=== PATIENT | female | born 1965 | race Caucasian/White ===

== ENCOUNTER → 2020-07-15 15:39 | Outpatient (CLI) | payer OTHER, SELFPAY ==
--- NOTE | ~2020-07-15 | XR_ITS ---
XR abdomen/kub 1V 07/15/2020 16:02 Indication: Renal stone Procedure: KUB Comparison: No prior studies for comparison. Findings: Bowel gas pattern is nonobstructive. There are cholecystectomy clips. There are pelvic phle boliths. No acute osseous abnormality. Impression: 1: Nonobstructive bowel gas pattern. Reviewed, dictated and finalized at location B. Impression: 1: Nonobstructive bowel gas pattern.
== END ==
PROVIDERS: PCP Family Medicine Sports Medicine; Visit Provider Internal Medicine Nephrology
DX: N20.0 Calculus of kidney (principal)
CPT/HCPCS: 74018

== ENCOUNTER 2023-05-24 10:51 | Outpatient (CLI) | payer BC, SELFPAY ==
--- NOTE | ~2023-05-24 | US_ITS ---
Renal-Bladder ultrasound Clinical History: Chronic kidney disease Technique: Real-time sonographic imaging of the kidneys and urinary bladder was performed. Findings: The right kidney measures 7.8 cm in length and the left kidney measures 9.1 cm. There is no hydronephrosis or renal calculus identified. Renal cortical echogenicity mildly increased. No renal mass lesion is identified. The urinary bladder is moderately distended at the time of this exam. No intraluminal echoes are iden tified. No abnormal wall thickening is seen. Impression: Unremarkable ultrasound of the kidneys and urinary bladder. Reviewed, dictated and finalized at location . DCAST DIRECTOR OPERATIONS Impression: Unremarkable ultrasound of the kidneys and urinary bladder.
== END 2023-05-24 10:52 ==
LOC: MICIMG 10:52
PROVIDERS: PCP Nurse Practitioner; Visit Provider Nurse Practitioner
DX: N18.5 Chronic kidney disease, stage 5 (principal)
CPT/HCPCS: 76775

== ENCOUNTER 2024-07-04 08:13 | Outpatient (CLI) | payer OTHER, SELFPAY ==
--- NOTE | ~2024-07-04 | US_ITS ---
Abdominal Sonogram: Real-time sonographic imaging of the abdomen was performed. Clinical History: End-stage renal disease Findings: The liver appears normal with no evidence of mass lesion or bile duct dilatation. Main por chau vein demonstrates normal direction of flow. The spleen is normal in size without evidence of foca l lesion. The gallbladder is absent, compatible with prior cholecystectomy. The common bile duct frances sures 5 mm. The visualized pancreas, aorta, and IVC are unremarkable. The right kidney measures 7.2 cm in length and the left kidney measures 8.0 cm. There is no hydronephrosis or renal calculus. Bot h kidneys are echogenic. Impression: Echogenic kidneys are compatible with chronic medical renal disease. Reviewed, dictated and finalized at location M. Impression: Echogenic kidneys are compatible with chronic medical renal disease.
== END 2024-07-04 08:14 | disposition home or self-care (01) ==
PROVIDERS: PCP Family Medicine; Visit Provider Internal Medicine Nephrology
DX: N18.6 End stage renal disease (principal); R14.0 Abdominal distension (gaseous)
CPT/HCPCS: 76700

== ENCOUNTER 2024-07-25 06:50 | Outpatient (CLI) | payer OTHER, SELFPAY ==
--- OUTSIDE RECORDS SUMMARY | 2024-07-25 06:53 | XMS_ITS | Clinical Summary ---
Author Organization [facility] Address [address] [place] [address] Phone Care Team Providers Care Pipeline Dispatcher Name Role Phone Yaw Rodriguez MD Primary Care Provider [phone] Allergies Active Allergy Reactions Criticality Noted Date Comments Codeine Palpitations Low 08/11/2019 Medications montelukast (SINGULAIR) 10 MG tablet Take 10 mg by mouth 1 (one) time each day 05/25/2020 Active potassium chloride (KLOR-CON M20) 20 MEQ CR tablet Take 20 mEq by mouth 2 (two) times a day 06/01/2020 Active atorvastatin (LIPITOR) 10 MG tablet Take 10 mg by mouth 1 (one) time each day 06/09/2020 Active albuterol HFA (PROVENTIL HFA) 108 (90 Base) MCG/ACT inhaler INHALE 1 PUFF BY MOUTH 4 TIMES A DAY NEEDED 03/27/2020 Active Active Problems Problem Noted Date Diagnosed Date Renal stone 08/11/2019 Overview (06/25/2020): Added automatically from request for surgery [id number] Added automatically from request for surgery [id number] Family History Medical History Relation Comments Kidney disease Neg Hx Social History Tobacco Use Types Packs/Day Years Used Date Smoking Tobacco: Former Smokeless Tobacco: Never Alcohol Use Standard Drinks/Week Comments Never 0 (1 standard drink = 0.6 oz pur e alcohol) AUDIT-C Answer Date Recorded Q1: How often do you have a drink containing alc ohol? Never 06/25/2020 Q2: How many drinks containi ng alcohol do you have on a typical day when you are drinking? Not asked 06/25/2020 Q3: How often do you have six or more drinks on one occasion? Never 06/25/2020 Comments Unknown Sex and Gender Information Value Date Recorded Sex Assigned at Not on file Legal Sex Female 10:54 AM MST Gender Identity Not on file Sexual Orientation Not on file Last Filed Vital Signs Vital Sign Reading Time Taken Comments Blood Pressure 94/60 06/25/2020 9:22 AM CDT Pulse 72 06/25/2020 9:22 AM CDT Temperature 36.6 C (97.8 F) 06/25/2020 9:22 AM CDT Respiratory Rate - - Oxygen Saturation - - Inhaled Oxygen Concentration - - Weight 52.6 kg (116 lb) 06/25/2020 9:22 AM CDT Height 152.4 cm (5') 06/25/2020 9:22 AM CDT Body Mass Index 22.65 06/25/2020 9:22 AM CDT Plan of Treatment Health Maintenance Due Date Last Done Comments Influenza Vaccine (Season Ended) 2024 Insurance [employer] Care Teams Pipeline Dispatcher Relationship Specialty Start Date End Date Yaw Rodriguez MD PCP - General Family Medicine 04/22/20
--- OUTSIDE RECORDS SUMMARY | 2024-07-25 06:53 | XMS_ITS | Encounter Summary ---
Author Organization [facility] Address [address] [place] [address] Care Team Providers Care Waste Reduction Coordinator Name Role Phone León Varela MD Primary Care Provider [phone] Encounter Details Date Type Department Care Team (Late st Contact Info) Description 08/22/2022 Lab Requisition [facility] [address] [facility] [place] [address] Disha Gutierrez MD [address] [facility] [address] [place] [address] Social History Tobacco Use Types Packs/Day Years Used Date Smoking Tobacco: Never Assessed Comments Unknown Sex and Gender Information Value Date Recorded Sex Assigned at Not on file 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 Gender Identity Not on file Sexual Orientation Not on file documented as of this encounter Plan of Treatment Not on file documented as of this encounter Procedures Procedure Name Priority Date/Time Associated Diagnosis Comments DERMATOPATHOLOGY Routine 08/22/2022 3:38 PM CDT documented in this encounter Results * DERMATOPATHOLOGY (08/22/2022 3:38 PM CDT) Case Report Dermatopathology Report Case: [id number] Authorizing Provider: Disha Gutierrez MD Collected: 08/22/2022 03:38 PM Ordering Location: [facility] Received: 08/23/2022 12:25 PM Pathologist: Key Johnson MD Specimens: A) - Skin, left arm B) - Skin, right arm C) - Skin, right upper lip D) - Skin, left hand E) - Skin, left 3rd finger 3 3:13 PM [facility] Final Diagnosis Specimen A. 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 SKIN, right upper lip: BASAL CELL CARCINOMA, NODULAR TYPE (C44.319) Specimen D. SKIN, left hand: BENIGN VERRUCOUS KERATOSIS (L82.1) OVERLYING CUTANEOUS HORN (L85.8) Specimen E. 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 The specimen consists of a shave biopsy measuring 8x8x3 mm. Jar 0. Specimen B: Received is one formalin filled container labeled with the patient's name and designated right arm. The specimen consists of a shave biopsy measuring 9x8x3 mm. Jar 0. Specimen C: Received is one formalin filled container labeled with the patient's name and designated right upper lip. The specimen consists of a shave biopsy measuring 3x3x1 mm. Jar 0. Specimen D: Received is one formalin filled container labeled with the patient's name and designated left hand. The specimen consists of a shave biopsy measuring 6x6x2 mm. Jar 0. Specimen E: Received is one formalin filled container labeled with the patient's name and designated left 3rd finger. The specimen consists of a shave biopsy measuring 6x6x2 mm. Jar 0. 3 3:13 PM [facility] Microscopic Description Specimen A. SKIN, left arm: The epidermis shows parakeratosis, full thickness disorderly maturation of keratinocytes, mitoses at different levels, and dyskeratotic cells. Specimen B. SKIN, right arm: The epidermis shows parakeratosis, full thickness disorderly maturation of keratinocytes, mitoses at different levels, and dyskeratotic cells. Specimen C. SKIN, right upper lip: Within the dermis there are aggregates of basaloid cells with a high nuclear to cytoplasmic ratio and peripheral palisading. Specimen D. SKIN, left hand: Sections show hyperkeratosis, papillomatosis, hypergranulosis, and acanthosis. These histological findings can be seen in a verruca vulgaris or a seborrheic keratosis. There is a column of marked compact hyperkeratosis. Specimen E. SKIN, left 3rd finger: The epidermis shows parakeratosis, full thickness disorderly maturation of keratinocytes, mitoses at different levels, and dyskeratotic cells. There is a column of marked compact hyperkeratosis. 3 3:13 PM CDT DERMATOPATHOLOGY LABORATORY Disclaimer An external and internal positive and negative controls are appropriate for the histochemical, immunohistochemical and immunofluorescence stain(s) in this case (if any), except where stated explicitly. The performance characteristics of the stain(s) cited in this report were developed and its performance characteristic determined by the Dermatopathology Laboratory at [facility], directed by Dr. Cole Gonzáles. These tests need not be, and therefore are not, approved by the [place] Food and Drug Administration. The tests are used for clinical purposes. Billing Codes Specimen Charges Stain Charges 91253 52471 [id number] 1 1 1 1 1 3 3:13 PM CDT DERMATOPATHOLOGY LABORATORY Embedded Images 3 3:13 PM CDT DERMATOPATHOLOGY LABORATORY Pathology/Cytology TISSUE SPECIMEN FROM SKIN / Unknown 08/22/2022 3:38 PM CDT 08/23/2022 12:25 PM CDT Miscellaneous samples (specimen) TISSUE SPECIMEN FROM SKIN / Unknown 08/22/2022 3:38 PM CDT 08/23/2022 12:25 PM CDT Miscellaneous samples (specimen) TISSUE SPECIMEN FROM SKIN / Unknown 08/22/2022 3:38 PM CDT 08/23/2022 12:25 PM CDT Miscellaneous samples (specimen) TISSUE SPECIMEN FROM SKIN / Unknown 08/22/2022 3:38 PM CDT 08/23/2022 12:25 PM CDT Miscellaneous samples (specimen) TISSUE SPECIMEN FROM SKIN / Unknown 08/22/2022 3:38 PM CDT 08/23/2022 12:25 PM CDT Disha Gutierrez MD LAB - PATHOLOGY/CYTOLOGY ORD ERABLES Final Result DERMATOPATHOLOGY LABORATORY [facility] - Department of Dermatology [facility] [address] [place] [address], [address] [phone] documented in this encounter Visit Diagnoses Not on filedocumented in this encounter Care Teams Waste Reduction Coordinator Relationship Specialty Start Date End Date León Varela MD [address] [place] [address] PCP - General 04/29/14 documented as of this encounter
--- OUTSIDE RECORDS SUMMARY | 2024-07-25 06:54 | XMS_ITS | Referral Summary ---
Author Organization [facility] Address [address] [place] [address] Care Team Providers Care Mechanical Insulator Name Role Phone León Varela MD Primary Care Provider [phone] Roger Morales MD Unavailable [phone] Disha Gutierrez MD Unavailable [phone] Encounters Date Type Department Care Team Description 07/18/2024 2:10 PM CDT Office Visit [facility] Surgery [facility] 12th [place] [address] [place] [address] 07/18/2024 1:45 PM CDT Office Visit [facility] Surgery [address] [facility] Advanced Medicine 12th [place] [address] [place] [address] Carmelo Brown MD PhD ESRD (end stage renal disease) (HCC) (Primary Dx) 06/18/2024 Telephone [facility] and [facility] Transplant Kidney [address] [facility] [address] Mailstop [phone] [place] [address] Hoda Heredia RN 06/07/2024 Telephone [facility] Surgery [facility] 12th [place] [address] [place] [address] Carmelo Brown MD PhD 06/07/2024 Telephone [facility] Surgery [address] [facility] Advanced Medicine 12th [place] [address] [place] [address] Carmelo Brown MD PhD 06/05/2024 Telephone [facility] Surgery [address] [facility] Advanced Medicine 12th [place] [address] [place] [address] Carmelo Brown MD PhD 05/31/2024 Telephone [facility] and [facility] Transplant Kidney [address] [facility] [address] Mail[address] [phone] [place] [address] Kati Colón 05/30/2024 Telephone [facility] and [facility] Transplant Kidney [address] [facility] [address] Mailstop [phone] [place] [address] Kati Colón 05/20/2024 Telephone [facility] and [facility] Transplant Kidney [address] [facility] [address] Mail[address] [phone] [place] [address] SchwKati lopes 05/20/2024 Telephone [facility] and [facility] Transplant Kidney [address] [facility] [address] Mail[address] [phone] [place] [address] Kati Colón 05/17/2024 SHOP/CHAP Initial Outreach [facility] [address] [place] [address] Kiya Lawson, [facility] 05/15/2024 SHOP/CHAP Initial Outreach [facility] [address] [place] [address] Kiya Lawson, [facility] 05/14/2024 SHOP/CHAP Initial Outreach [facility] [address] [place] [address] Kiya Lawson, [facility] 05/14/2024 SHOP/CHAP Initial Eligibility Review [facility] [address] [place] [address] Kiya Lawson LCSW 05/02/2024 6:54 PM RUG SIZER - 05/13/2024 8:00 PM RUG SIZER Hospital Encounter [facility] [address] [place] [address] Jayesh Hutchins MD Kollef, Marin H., MD Roth, MD Brennen To, Tristan Fenton MD Hyperkalemia (Primary Dx); Pain in both lower extremities; Leg numbness Discharge Disposition: Discharge to home or self care 05/09/2024 10:20 AM RUG SIZER Ancillary Procedure [facility] Vascular Lab IP [address] [facility] [address] [place] [address] 05/08/2024 Telephone [facility] and [facility] Transplant Kidney [address] [facility] [address] Mailstop [phone] [place] [address] Yasmine Jimenez Referral - Kidney Txp 05/06/2024 12:15 PM RUG SIZER Ancillary Procedure [facility] Vascular Lab IP [address] [facility] [address] [place] [address] 05/03/2024 8:40 AM RUG SIZER Ancillary Procedure [facility] Vascular Lab IP [address] [facility] [address] [place] [address] from Last 3 Months Allergies Active Allergy Reactions Criticality Noted Date Comments Fluticasone Propion-Salmeterol Rash Medium 05/02 Thrush Codeine Palpitations Low 08/11/2019 Medications oxybutynin (DITROPAN) 5 mg tablet Take 1 tablet (5 mg total) by mouth 3 (three) times a day as needed (Stent pain) 90 tablet 0 Active tamsulosin (FLOMAX) 0.4 mg extended release capsuleIndicatio ns:Urolithiasis Take 1 capsule (0.4 mg total) by mouth daily 30 capsule 0 Active Additional Information Patient taking differently:0.4 mg oralEvery morning, Indications: Urolithiasis, Reported on 08/27/2019 albuterol HFA (PROVENTIL HFA,VENTOLIN HFA,PROAIR HFA) 90 mcg/actuation inhalerIndicatio ns:Acute Asthma Attack Inhale 2 puffs every 4 (four) hours as needed 0 Active montelukast (SINGULAIR) 10 mg tabletIndication s:Maintenance Therapy for Asthma Take 1 tablet (10 mg total) by mouth nightly 0 Active montelukast (SINGULAIR) 10 mg tablet Take 1 tablet (10 mg total) by mouth nightly Active fluticasone-umec lidin-vilanter (Trelegy Ellipta) 200-62.5-25 mcg inhaler Inhale 1 puff daily Active albuterol HFA (PROVENTIL HFA,VENTOLIN HFA,PROAIR HFA) 90 mcg/actuation inhaler Inhale 2 puffs every 6 (six) hours as needed for wheezing Active atorvastatin (LIPITOR) 40 mg tablet Take 1 tablet (40 mg total) by mouth daily Active senna-docusate (PERICOLACE) 8.6-50 mg Take 1 tablet by mouth daily 30 tablet 5 Active calcitRIOL (ROCALTROL) 0.5 mcg capsule Take 1 capsule (0.5 mcg total) by mouth 3 (three) times a week 12 capsule 5 Active ergocalciferol (VITAMIN D) 50,000 unit capsule Take 1 capsule (50,000 Units total) by mouth once a week 4 capsule 5 Active gabapentin (NEURONTIN) 100 mg capsule Take 2 capsules (200 mg total) by mouth nightly as needed (neuropathy) 30 capsule 5 Active hydrOXYzine (ATARAX) 25 mg tablet Take 1 tablet (25 mg total) by mouth 3 (three) times a day as needed for itching 30 tablet 5 Active midodrine (PROAMATINE) 10 mg tabletIndication s:Symptomatic Orthostatic Hypotension Take 2 tablets (20 mg total) by mouth 3 (three) times a day 180 tablet 5 Active droxidopa (NORTHERA) 200 mg tablet Please take 30 minutes before dialysis to prevent low blood pressure 12 capsule 5 Active Active Problems Problem Noted Date Diagnosed Date Hyperkalemia 05/02/2024 Nephrolithiasis 08/13/2019 Overview (08/13/2019): Added automatically from request for surgery [id number] Left nephrolithiasis 08/11/2019 Overview (08/11/2019): Added automatically from request for surgery [id number] Social History Tobacco Use Types Packs/Day Years Used Date Smoking Tobacco: Former Cigarettes Passive Smoke Exposure: Current Smokeless Tobacco: Never Tobacco Cessation:Counseling Given: Not Answered Alcohol Use Standard Drinks/Week Comments Not Currently 0 (1 standard drink = 0.6 oz pur e alcohol) AUDIT-C Answer Date Recorded Q1: How often do you have a drink containing alcohol? Never 05/03/2024 Q2: How many drinks containi ng alcohol do you have on a typical day when you are drinking? Patient does not drink Q3: How often do you have si x or more drinks on one occasion? Never 05/03/2024 Personal Safety Answer Date Recorded Have you ever been in or are you currently in a harmful physical or emotional relationship or is someone making you feel afraid or unsafe? Denies 05/02/2024 Comments No Sex and Gender Information Value Date Recorded Sex Assigned at Not on file Legal Sex Female 7:24 PM RUG SIZER Gender Identity Not on file Sexual Orientation Not on file Last Filed Vital Signs Vital Sign Reading Time Taken Comments Blood Pressure 87/44 07/18/2024 2:05 PM CDT Pulse 94 07/18/2024 2:05 PM CDT Temperature 36.4 C (97.6 F) 07/18/2024 2:05 PM CDT Respiratory Rate 18 05/13/2024 6:30 PM RUG SIZER Oxygen Saturation 100% 05/13/2024 9:24 AM RUG SIZER Inhaled Oxygen Concentration - - Weight 56.2 kg (124 lb) 07/18/2024 2:05 PM CDT Height 152.4 cm (5') 07/18/2024 2:05 PM CDT Body Mass Index 24.22 07/18/2024 2:05 PM CDT Plan of Treatment Not on file Medical Devices Implanted Type Area Equipment Technician Device Identifier Shelf Expiration Date Model / Serial / Lot [employer] Duraflow Embosafe 15.5fr 24cm Basic 2 Lumen Kit Catheter [id number] - [id number] Implanted:Qty: 1 on 05/10/2024 by Palomo Guzmán MD at [facility] [employer] 05/17/2026 [id number] / / [id number] Explanted Type Area Equipment Technician Device Identifier Shelf Expiration Date Model / Serial / Lot [employer] [id number] Inlay Teague 6fr 24cm Pusher Fluoro Marker Atraumatic Insertion Latex Free - Sn/A - [id number] Implanted:Qty: 1 on 08/11/2019 by Zenaida Romero MD at [facility] Explanted:Qty: 1 on 09/04/2019 at [facility] Stent Left: Ureter [employer] [id number] 07/26/2023 [id number] / N/A / [id number] Procedures Procedure Name Priority Date/Time Associated Diagnosis Comments POCUS DUPLEX BILATERAL VESSEL MAPPING FOR HD ACCESS Schedule Routine, Read Routine (OP Routine) 07/18/2024 2:08 PM CDT ESRD (end stage renal disease) (HCC) POCT GLUCOSE DEVICE Routine 05/13/2024 6 :09 PM RUG SIZER POCT GLUCOSE DEVICE Routine 05/13/2024 1 1:01 AM RUG SIZER HEMODIALYSIS Routine 05/13/2024 8:54 AM RUG SIZER POCT GLUCOSE DEVICE Routine 05/13/2024 7 :52 AM RUG SIZER EGFR Routine 05/12/2024 8:57 PM RUG SIZER DIFFERENTIAL AUTO Routine 05/12/2024 8:5 7 PM RUG SIZER TYPE AND SCREEN Timed 05/12/2024 8:57 PM RUG SIZER PHOSPHORUS Routine 05/12/2024 8:57 PM RUG SIZER MAGNESIUM Routine 05/12/2024 8:57 PM RUG SIZER CBC WITH AUTO DIFFERENTIAL Routine 05/12/2024 8:57 PM RUG SIZER BASIC METABOLIC PANEL Routine 05/12/2024 8:57 PM RUG SIZER POCT GLUCOSE DEVICE Routine 05/12/2024 7 :41 PM RUG SIZER POCT GLUCOSE DEVICE Routine 05/12/2024 5 :39 PM RUG SIZER POCT GLUCOSE DEVICE Routine 05/12/2024 1 2:10 PM RUG SIZER POCT GLUCOSE DEVICE Routine 05/12/2024 8 :30 AM RUG SIZER DIFFERENTIAL AUTO Routine 05/11/2024 10: 31 PM RUG SIZER CBC WITH AUTO DIFFERENTIAL Routine 05/11/2024 10:31 PM RUG SIZER EGFR Routine 05/11/2024 8:42 PM RUG SIZER PHOSPHORUS Routine 05/11/2024 8:42 PM RUG SIZER MAGNESIUM Routine 05/11/2024 8:42 PM RUG SIZER BASIC METABOLIC PANEL Routine 05/11/2024 8:42 PM RUG SIZER POCT GLUCOSE DEVICE Routine 05/11/2024 7 :41 PM RUG SIZER POCT GLUCOSE DEVICE Routine 05/11/2024 4 :38 PM RUG SIZER POCT GLUCOSE DEVICE Routine 05/11/2024 1 1:45 AM RUG SIZER POCT GLUCOSE DEVICE Routine 05/11/2024 9 :19 AM RUG SIZER EGFR Routine 05/10/2024 9:54 PM RUG SIZER DIFFERENTIAL AUTO Routine 05/10/2024 9:5 4 PM RUG SIZER PHOSPHORUS Routine 05/10/2024 9:54 PM RUG SIZER MAGNESIUM Routine 05/10/2024 9:54 PM RUG SIZER CBC WITH AUTO DIFFERENTIAL Routine 05/10/2024 9:54 PM RUG SIZER BASIC METABOLIC PANEL Routine 05/10/2024 9:54 PM RUG SIZER POCT GLUCOSE DEVICE Routine 05/10/2024 8 :10 PM RUG SIZER HEMODIALYSIS Routine 05/10/2024 12:00 PM RUG SIZER POCT GLUCOSE DEVICE Routine 05/10/2024 1 1:35 AM RUG SIZER TUNNELED LINE PLACEMENT > 5 YEARS IP Routine 05/10/2024 10:09 AM RUG SIZER POCT GLUCOSE DEVICE Routine 05/10/2024 7 :20 AM RUG SIZER POCT GLUCOSE DEVICE Routine 05/10/2024 4 :03 AM RUG SIZER EGFR Routine 05/09/2024 9:55 PM RUG SIZER DIFFERENTIAL AUTO Routine 05/09/2024 9:5 5 PM RUG SIZER PHOSPHORUS Routine 05/09/2024 9:55 PM RUG SIZER MAGNESIUM Routine 05/09/2024 9:55 PM RUG SIZER CBC WITH AUTO DIFFERENTIAL Routine 05/09/2024 9:55 PM RUG SIZER BASIC METABOLIC PANEL Routine 05/09/2024 9:55 PM RUG SIZER POCT GLUCOSE DEVICE Routine 05/09/2024 8 :07 PM RUG SIZER POCT GLUCOSE DEVICE Routine 05/09/2024 5 :07 PM RUG SIZER POCT GLUCOSE DEVICE Routine 05/09/2024 1 2:11 PM RUG SIZER US VEIN MAPPING DUPLEX UPPER EXTREMITY BILATERAL IP Routine 05/09/2024 11:33 AM RUG SIZER POCT GLUCOSE DEVICE Routine 05/09/2024 7 :11 AM RUG SIZER POCT GLUCOSE DEVICE Routine 05/08/2024 8 :19 PM RUG SIZER HEMODIALYSIS Routine 05/08/2024 5:26 PM RUG SIZER POCT GLUCOSE DEVICE Routine 05/08/2024 5 :16 PM RUG SIZER POCT GLUCOSE DEVICE Routine 05/08/2024 1 1:04 AM RUG SIZER POCT GLUCOSE DEVICE Routine 05/08/2024 7 :29 AM RUG SIZER EGFR Routine 05/08/2024 5:11 AM RUG SIZER DIFFERENTIAL AUTO Routine 05/08/2024 5:1 1 AM RUG SIZER PHOSPHORUS Routine 05/08/2024 5:11 AM RUG SIZER MAGNESIUM Routine 05/08/2024 5:11 AM RUG SIZER BASIC METABOLIC PANEL Routine 05/08/2024 5:11 AM RUG SIZER CBC WITH AUTO DIFFERENTIAL Routine 05/08/2024 5:11 AM RUG SIZER POCT GLUCOSE DEVICE Routine 05/07/2024 8 :37 PM RUG SIZER POCT GLUCOSE DEVICE Routine 05/07/2024 3 :07 PM RUG SIZER HEMODIALYSIS Routine 05/07/2024 11:55 AM RUG SIZER POCT GLUCOSE DEVICE Routine 05/07/2024 1 1:08 AM RUG SIZER POCT GLUCOSE DEVICE Routine 05/07/2024 7 :28 AM RUG SIZER EGFR Routine 05/07/2024 4:14 AM RUG SIZER DIFFERENTIAL AUTO Routine 05/07/2024 4:1 4 AM RUG SIZER PHOSPHORUS Routine 05/07/2024 4:14 AM RUG SIZER MAGNESIUM Routine 05/07/2024 4:14 AM RUG SIZER BASIC METABOLIC PANEL Routine 05/07/2024 4:14 AM RUG SIZER CBC WITH AUTO DIFFERENTIAL Routine 05/07/2024 4:14 AM RUG SIZER POCT GLUCOSE DEVICE Routine 05/06/2024 7 :53 PM RUG SIZER POCT GLUCOSE DEVICE Routine 05/06/2024 5 :55 PM RUG SIZER US VEIN DUPLEX LOWER EXTREMITY BILATERAL COMPLETE IP Routine 05/06/2024 2:05 PM RUG SIZER POCT GLUCOSE DEVICE Routine 05/06/2024 1 1:42 AM RUG SIZER POCT GLUCOSE DEVICE Routine 05/06/2024 7 :36 AM RUG SIZER EGFR Routine 05/06/2024 4:38 AM RUG SIZER DIFFERENTIAL AUTO Routine 05/06/2024 4:3 8 AM RUG SIZER PHOSPHORUS Routine 05/06/2024 4:38 AM RUG SIZER MAGNESIUM Routine 05/06/2024 4:38 AM RUG SIZER BASIC METABOLIC PANEL Routine 05/06/2024 4:38 AM RUG SIZER CBC WITH AUTO DIFFERENTIAL Routine 05/06/2024 4:38 AM RUG SIZER POCT GLUCOSE DEVICE Routine 05/05/2024 8 :39 PM RUG SIZER POCT GLUCOSE DEVICE Routine 05/05/2024 4 :48 PM RUG SIZER POCT GLUCOSE DEVICE Routine 05/05/2024 1 2:27 PM RUG SIZER POCT GLUCOSE DEVICE Routine 05/05/2024 8 :14 AM RUG SIZER EGFR Routine 05/05/2024 6:13 AM RUG SIZER DIFFERENTIAL AUTO Routine 05/05/2024 6:1 3 AM RUG SIZER PHOSPHORUS Routine 05/05/2024 6:13 AM RUG SIZER MAGNESIUM Routine 05/05/2024 6:13 AM RUG SIZER BASIC METABOLIC PANEL Routine 05/05/2024 6:13 AM RUG SIZER CBC WITH AUTO DIFFERENTIAL Routine 05/05/2024 6:13 AM RUG SIZER HEPATITIS B CORE ANTIBODY, TOTAL Routine 05/05/2024 6:13 AM RUG SIZER POCT GLUCOSE DEVICE Routine 05/04/2024 1 1:33 PM RUG SIZER BLOOD CULTURE Routine 05/04/2024 9:54 PM RUG SIZER BLOOD CULTURE Routine 05/04/2024 9:54 PM RUG SIZER RESPIRATORY PATHOGEN PANEL Routine 05/04/2024 9:54 PM RUG SIZER XR CHEST 1 VIEW ED Urgent/IP Urgent 05/04/2024 9:16 PM RUG SIZER POCT GLUCOSE DEVICE Routine 05/04/2024 8 :28 PM RUG SIZER POCT GLUCOSE DEVICE Routine 05/04/2024 4 :40 PM RUG SIZER POCT GLUCOSE DEVICE Routine 05/04/2024 2 :39 PM RUG SIZER POCT GLUCOSE DEVICE Routine 05/04/2024 1 2:25 PM RUG SIZER HEMODIALYSIS Routine 05/04/2024 11:05 AM RUG SIZER EGFR Timed 05/04/2024 10:45 AM RUG SIZER DIFFERENTIAL AUTO Timed 05/04/2024 10: 45 AM RUG SIZER CBC WITH AUTO DIFFERENTIAL Timed 05/04/2024 10:45 AM RUG SIZER MAGNESIUM Timed 05/04/2024 10:45 AM RUG SIZER PHOSPHORUS Timed 05/04/2024 10:45 AM RUG SIZER BASIC METABOLIC PANEL Timed 05/04/2024 10:45 AM RUG SIZER POCT GLUCOSE DEVICE Routine 05/04/2024 8 :18 AM RUG SIZER EGFR Timed 05/03/2024 11:05 PM RUG SIZER MAGNESIUM Timed 05/03/2024 11:05 PM RUG SIZER PHOSPHORUS Timed 05/03/2024 11:05 PM RUG SIZER BASIC METABOLIC PANEL Timed 05/03/2024 11:05 PM RUG SIZER POCT GLUCOSE DEVICE Routine 05/03/2024 8 :27 PM RUG SIZER HEMOGLOBIN AND HEMATOCRIT Timed 05/03/2024 5:05 PM RUG SIZER EGFR Timed 05/03/2024 4:13 PM RUG SIZER MAGNESIUM Timed 05/03/2024 4:13 PM RUG SIZER PHOSPHORUS Timed 05/03/2024 4:13 PM RUG SIZER BASIC METABOLIC PANEL Timed 05/03/2024 4:13 PM RUG SIZER POCT GLUCOSE DEVICE Routine 05/03/2024 3 :57 PM RUG SIZER TRANSFUSE RED BLOOD CELLS Timed 05/03/2024 3:00 PM RUG SIZER PREPARE RBC Timed 05/03/2024 1:35 PM RUG SIZER DIFFERENTIAL AUTO STAT 05/03/2024 12: 51 PM RUG SIZER CBC WITH AUTO DIFFERENTIAL STAT 05/03/2024 12:51 PM RUG SIZER POTASSIUM LEVEL Timed 05/03/2024 12:51 PM RUG SIZER POCT GLUCOSE DEVICE Routine 05/03/2024 1 1:38 AM RUG SIZER US VEIN DUPLEX UPPER EXTREMITY BILATERAL COMPLETE ED Urgent/IP Urgent 05/03/2024 11:31 AM RUG SIZER TRANSTHORACIC ECHO (TTE) COMPLETE W DOPPLER/CF W CONTRAST ED Urgent/IP Urgent 05/03/2024 10:20 AM RUG SIZER POCT GLUCOSE DEVICE Routine 05/03/2024 9 :53 AM RUG SIZER POCT GLUCOSE DEVICE Routine 05/03/2024 9 :01 AM RUG SIZER CBC WITH AUTO DIFFERENTIAL Routine 05/03/2024 8:29 AM RUG SIZER DIFFERENTIAL AUTO Routine 05/03/2024 8:2 9 AM RUG SIZER CRITICAL RESULT CALLBACK CHEMISTRY Timed 05/03/2024 8:29 AM RUG SIZER EGFR Timed 05/03/2024 8:29 AM RUG SIZER LACTATE DEHYDROGENASE Timed 05/03/2024 8:29 AM RUG SIZER MAGNESIUM Timed 05/03/2024 8:29 AM RUG SIZER PHOSPHORUS Timed 05/03/2024 8:29 AM RUG SIZER BASIC METABOLIC PANEL Timed 05/03/2024 8:29 AM RUG SIZER RETICULOCYTES Routine 05/03/2024 8:29 AM RUG SIZER POCT GLUCOSE DEVICE Routine 05/03/2024 8 :21 AM RUG SIZER CHLORIDE, URINE, RANDOM STAT 05/03/2024 5:15 AM RUG SIZER POTASSIUM, URINE, RANDOM STAT 05/03/2024 5:15 AM RUG SIZER SODIUM, URINE, RANDOM STAT 05/03/2024 5:15 AM RUG SIZER PROTEIN / CREATININE RATIO, URINE, RANDOM Routine 05/03/2024 5:15 AM RUG SIZER TRANSFUSE RED BLOOD CELLS Timed 05/03/2024 4:45 AM RUG SIZER US KIDNEY COMPLETE ED Urgent/IP Urgent 05/03/2024 4:05 AM RUG SIZER XR CHEST 1 VIEW Critical/Life-T hreatening 05/03/2024 3:47 AM RUG SIZER CRITICAL RESULT CALLBACK CHEMISTRY Timed 05/03/2024 3:22 AM RUG SIZER HAPTOGLOBIN Timed 05/03/2024 3:22 AM RUG SIZER CRITICAL RESULT CALLBACK CHEMISTRY Routine 05/03/2024 3:22 AM RUG SIZER DIFFERENTIAL AUTO Timed 05/03/2024 3:2 2 AM RUG SIZER BLOOD GAS, VENOUS Routine 05/03/2024 3:2 2 AM RUG SIZER LACTATE, WHOLE BLOOD Routine 05/03/2024 3:22 AM RUG SIZER POTASSIUM, WHOLE BLOOD Routine 05/03/2024 3:22 AM RUG SIZER CBC WITH AUTO DIFFERENTIAL Timed 05/03/2024 3:22 AM RUG SIZER TYPE AND SCREEN Timed 05/03/2024 3:22 AM RUG SIZER POTASSIUM LEVEL Timed 05/03/2024 3:22 AM RUG SIZER POC BLOOD GAS AND CHEMISTRIES, ARTERIAL Routine 05/03/2024 2:45 AM RUG SIZER PTH Routine 05/03/2024 2:36 AM RUG SIZER HEMOGLOBIN A1C Routine 05/03/2024 2:36 AM RUG SIZER TROPONIN I HIGH-SENSITIVITY 2-HOUR Timed 05/03/2024 2:36 AM RUG SIZER HEPATITIS C ANTIBODY Routine 05/03/2024 2:36 AM RUG SIZER HIV 1/2 ANTIBODY PLUS P24 ANTIGEN Routine 05/03/2024 2:36 AM RUG SIZER HEPATITIS B SURFACE ANTIBODY (IMMUNE STATUS) Routine 05/03/2024 2:36 AM RUG SIZER HEPATITIS B SURFACE ANTIGEN Routine 05/03/2024 2:36 AM RUG SIZER INFECTION PREVENTION MRSA ONLY (STAPHYLOCOCCUS AUREUS) CULTURE Routine 05/03/2024 2:36 AM RUG SIZER FOLATE STAT 05/03/2024 2:33 AM RUG SIZER VITAMIN B12 STAT 05/03/2024 2:33 AM RUG SIZER EGFR STAT 05/03/2024 2:33 AM RUG SIZER CRITICAL RESULT CALLBACK CHEMISTRY STAT 05/03/2024 2:33 AM RUG SIZER VITAMIN D 25 HYDROXY Routine 05/03/2024 2:33 AM RUG SIZER CHOLESTEROL, LDL, DIRECT Routine 05/03/2024 2:33 AM RUG SIZER PRO B-TYPE NATRIURETIC PEPTIDE STAT 05/03/2024 2:33 AM RUG SIZER CREATINE KINASE (CK), TOTAL STAT 05/03/2024 2:33 AM RUG SIZER CALCIUM, IONIZED STAT 05/03/2024 2:33 AM RUG SIZER PHOSPHORUS STAT 05/03/2024 2:33 AM RUG SIZER MAGNESIUM STAT 05/03/2024 2:33 AM RUG SIZER COMPREHENSIVE METABOLIC PANEL STAT 05/03/2024 2:33 AM RUG SIZER POCT GLUCOSE DEVICE Routine 05/03/2024 2 :30 AM RUG SIZER ECG 12-LEAD STAT 05/03/2024 2:27 AM RUG SIZER PREPARE RBC Timed 05/03/2024 2:17 AM RUG SIZER POCT GLUCOSE DEVICE Routine 05/03/2024 1 :47 AM RUG SIZER ECG 12-LEAD STAT 05/03/2024 1:42 AM RUG SIZER CRITICAL RESULT CALLBACK CHEMISTRY Timed 05/03/2024 1:38 AM RUG SIZER POTASSIUM LEVEL Timed 05/03/2024 1:38 AM RUG SIZER TROPONIN I HIGH-SENSITIVITY 4-HOUR Timed 05/03/2024 1:38 AM RUG SIZER CRITICAL RESULT CALLBACK CHEMISTRY Timed 05/03/2024 12:39 AM RUG SIZER PROTIME-INR STAT 05/03/2024 12:39 AM RUG SIZER APTT STAT 05/03/2024 12:39 AM RUG SIZER POTASSIUM LEVEL Timed 05/03/2024 12:39 AM RUG SIZER NV INSJ NON-TUNNELED CENTRAL VENOUS CATH AGE 5 YR/> Routine 05/03/2024 12:26 AM RUG SIZER POCT CREATININE - DEVICE Routine 05/02/2024 11:37 PM RUG SIZER POCT GLUCOSE DEVICE Routine 05/02/2024 1 1:33 PM RUG SIZER POCT GLUCOSE DEVICE Routine 05/02/2024 1 1:29 PM RUG SIZER XR CHEST 1 VIEW ED 05/02/2024 11:25 PM RUG SIZER NV CRITICAL CARE ILL/INJURED PATIENT INIT 30-74 MIN Routine 05/02/2024 11:11 PM RUG SIZER CRITICAL RESULT CALLBACK CHEMISTRY STAT 05/02/2024 10:38 PM RUG SIZER B CHECK SAMPLE STAT 05/02/2024 10:38 PM RUG SIZER POTASSIUM, WHOLE BLOOD STAT 05/02/2024 10:38 PM RUG SIZER CRITICAL RESULT CALLBACK CHEMISTRY STAT 05/02/2024 10:23 PM RUG SIZER POTASSIUM, WHOLE BLOOD STAT 05/02/2024 10:23 PM RUG SIZER HEMODIALYSIS Routine 05/02/2024 10:05 PM RUG SIZER POCT GLUCOSE DEVICE Routine 05/02/2024 9 :49 PM RUG SIZER BLOOD CULTURE STAT 05/02/2024 9:46 PM RUG SIZER BLOOD CULTURE STAT 05/02/2024 9:46 PM RUG SIZER ECG 12-LEAD STAT 05/02/2024 9:18 PM RUG SIZER CRITICAL RESULT CALLBACK CHEMISTRY Timed 05/02/2024 9:15 PM RUG SIZER THYROID FUNCTION CASCADE Timed 05/02/2024 9:15 PM RUG SIZER CRITICAL RESULT CALLBACK CHEMISTRY STAT 05/02/2024 9:15 PM RUG SIZER TROPONIN I HIGH-SENSITIVITY SERIES (BASELINE, 2HR, 4HR, 6HR) STAT 05/02/2024 9:15 PM RUG SIZER BLOOD GAS, VENOUS STAT 05/02/2024 9:1 5 PM RUG SIZER POTASSIUM LEVEL Timed 05/02/2024 9:15 PM RUG SIZER TYPE AND SCREEN STAT 05/02/2024 9:15 PM RUG SIZER IRON PROFILE W/ IBC STAT 05/02/2024 8 :01 PM RUG SIZER FERRITIN STAT 05/02/2024 8:01 PM RUG SIZER EGFR STAT 05/02/2024 8:01 PM RUG SIZER CRITICAL RESULT CALLBACK CHEMISTRY STAT 05/02/2024 8:01 PM RUG SIZER DIFFERENTIAL AUTO STAT 05/02/2024 8:0 1 PM RUG SIZER MAGNESIUM Routine 05/02/2024 8:01 PM RUG SIZER COMPREHENSIVE METABOLIC PANEL STAT 05/02/2024 8:01 PM RUG SIZER CBC WITH AUTO DIFFERENTIAL STAT 05/02/2024 8:01 PM RUG [facility] from Last 3 Months Results * POCUS Duplex Bilateral Vessel Mapping For HD Access (07/18/2024 2:08 PM CDT) Narrative [facility] - 07/18/2024 2:08 PM CDT This procedure was performed and interpreted by the provider. Please refer to the provider's procedure/OR operative note for results. us Carmelo Brown MD PhD POCUS ORDERABLES Final Re sult [facility]ACS[facility] * POCT glucose (05/13/2024 6:09 PM [facility]) Glucose, POC 99 70 - 199 mg/dL Blood 05/13/2024 6:09 PM [facility] 05/13/2024 6:09 PM [facility] us Tristan Hutton MD LAB POCT ORDERABLES - DEV ICE Final Result Performing Organization Address City/[facility]/ZIP Co de Phone Number [facility] [place] [place] [address] * POCT glucose (05/13/2024 11:01 AM [facility]) Glucose, POC 102 70 - 199 mg/dL Blood 05/13/2024 11:0 1 AM [facility] 05/13/2024 11:01 AM [facility] Tristan Hutton MD LAB POCT ORDERABLES - DEV ICE Final Result Performing Organization Address [facility] Co de Phone Number [facility] [place] [address] * POCT glucose (05/13/2024 7:52 AM [facility]) Glucose, POC 100 70 - 199 mg/dL Blood 05/13/2024 7:52 AM [facility] 05/13/2024 7:52 AM [facility] Tristan Hutton MD LAB POCT ORDERABLES - DEV ICE Final Result Performing Organization Address City/[facility] Co de Phone Number [facility] [place] [address] * (ABNORMAL) eGFR (05/12/2024 8:57 PM [facility]) eGFR 12(L) >=60 mL/min/1. 73 m2 Comment: Interpretive Data Reference Interval Normal >/= 90 mL/min/1.73m2 Mildly decreased* 60 - 89 mL/min/1.73m2 Mildly to moderately decreased 45 - 59 mL/min/1.73m2 Moderately to severely decreased 30 - 44 mL/min/1.73m2 Severely decreased 15 - 29 mL/min/1.73m2 Kidney Failure < 15 mL/min/1.73m2 *Relative to young adult level Estimated glomerular filtration rate is determined by the 2020 CKD-EPI equation recommended by the [employer] (A Unifying Approach to GFR Estimation: Recommendations of the NKF-ASK Task Force on Reassessing the Inclusion of Race in Diagnosing Kidney Disease, JASN 202). The CKD-EPI equation should not be used for patients with unstable renal function and has not been validated in children and those over 70. Current interpretive data was last reviewed 2021. Blood 05/12/2024 8:57 PM RUG SIZER 05/12/2024 9:32 PM RUG SIZER us Duyen Malloy MD LAB BLOOD ORDERABLES Final Result [facility] [place] [address] * (ABNORMAL) Differential, auto (05/12/2024 8:57 PM RUG SIZER) Neutrophil abs 8.2(H) 1.5 - 6.5 K/cumm Imm gran abs 0.2(H) 0.0 - 0.1 K/cumm [facility] Lymphocyte abs 2.3 0.8 - 3.3 K/cumm [facility] Monocyte abs 1.6(H) 0.2 - 0.8 K/cumm [facility] Eosinophil abs 0.1 0.0 - 0.5 K/cumm [facility] Basophil abs 0.1 0.0 - 0.1 K/cumm [facility] Neutrophil pct 65.9 % [facility] Comment: Interpretive Data Percent cell count reference ranges are not reported, since discordance with absolute values may lead to misinterpretation of CBC data. Current Interpretive Data was last revised on 2017. Imm gran pct 1.4 % [facility] Comment: Interpretive Data Percent cell count reference ranges are not reported, since discordance with absolute values may lead to misinterpretation of CBC data. Current Interpretive Data was last revised on 2017. Lymphocyte pct 18.7 % [facility] Comment: Interpretive Data Percent cell count reference ranges are not reported, since discordance with absolute values may lead to misinterpretation of CBC data. Current Interpretive Data was last revised on 2017. Monocyte pct 12.4 % [facility] Comment: Interpretive Data Percent cell count reference ranges are not reported, since discordance with absolute values may lead to misinterpretation of CBC data. Current Interpretive Data was last revised on 2017. Eosinophil pct 1.0 % [facility] Comment: Interpretive Data Percent cell count reference ranges are not reported, since discordance with absolute values may lead to misinterpretation of CBC data. Current Interpretive Data was last revised on 2017. Basophil pct 0.6 % [facility] Comment: Interpretive Data Percent cell count reference ranges are not reported, since discordance with absolute values may lead to misinterpretation of CBC data. Current Interpretive Data was last revised on 2017. Blood 05/12/2024 8:57 PM RUG SIZER 05/12/2024 9:33 PM RUG SIZER us Duyen Malloy MD LAB BLOOD ORDERABLES Final Result [facility] [place] [address] * (ABNORMAL) CBC with auto differential (05/12/2024 8:57 PM RUG SIZER) WBC 12.5(H) 3.8 - 9.9 K/cumm Hgb 7.0(L) 11.9 - 15.5 g/dL [facility] Hct 22.0(L) 35.6 - 45.5 % [facility] Plt 140(L) 150 - 400 K/cumm [facility] MPV 9.6 9.1 - 12.3 fL [facility] RBC 2.33(L) 3.90 - 5.20 M/cumm [facility] MCV 94.4 81.3 - 96.4 fL [facility] MCH 30.0 27.1 - 33.3 pg [facility] MCHC 31.8(L) 32.3 - 35.7 g/dL [facility] RDW CV 14.4 11.1 - 14.9 % [facility] RDW SD 48.4(H) 35.7 - 48.1 fL [facility] NRBC abs 0.02(H) 0.00 - 0.01 K/cumm [facility] Blood 05/12/2024 8:57 PM RUG SIZER 05/12/2024 9:33 PM RUG SIZER Duyen Malloy MD LAB BLOOD ORDERABLES Final Result Performing Organization Address City/[facility]/ZIP Co de Phone Number [facility] Department [place] [address] * Type and screen (05/12/2024 8:57 PM RUG SIZER) [facility] ABO Rh O Positive Zackary, indirect Negative [facility] Blood 05/12/2024 8:57 PM RUG SIZER 05/12/2024 9:39 PM RUG SIZER Narrative [facility] - 05/12/2024 10:34 PM RUG SIZER Has the patient had Daratumumab or Isatuximab in the past 6 months?->Unknown Tristan Hutton MD LAB BLOOD BANK TEST ORDER HAILEY Final Result Performing Organization Address [facility] Co de Phone Number [facility] Department [place] [address] * Phosphorus (05/12/2024 8:57 PM RUG SIZER) [facility] Phosphorus, pl 3.6 2.3 - 4.5 mg/dL Blood 05/12/2024 8:57 PM RUG SIZER 05/12/2024 9:32 PM RUG SIZER Duyen Malloy MD LAB BLOOD ORDERABLES Final Result Performing Organization Address [facility] Co de Phone Number [facility] [place] [place] [address] * (ABNORMAL) Magnesium (05/12/2024 8:57 PM RUG SIZER) [facility] Magnesium 2.6(H) 1.4 - 2.5 mg/dL Blood 05/12/2024 8:57 PM RUG SIZER 05/12/2024 9:32 PM RUG SIZER Duyen Malloy MD LAB BLOOD ORDERABLES Final Result Performing Organization Address [facility] Co de Phone Number [facility] Department [place] [address] * (ABNORMAL) Basic metabolic panel (05/12/2024 8:57 PM RUG SIZER) [facility] Sodium 139 135 - 145 mmol/L Potassium, pl 4.4 3.3 - 4.9 mmol/L [facility] Chloride 101 97 - 110 mmol/L [facility] CO2 29 22 - 32 mmol/L [facility] Anion gap 9 2 - 15 mmol/L [facility] BUN 16 6 - 25 mg/dL [facility] Creatinine 4.17(H) 0.60 - 1.10 mg/dL [facility] Glucose 147 70 - 199 mg/dL [facility] Comment: Interpretive Data Fasting glucose >/= 126 mg/dl is diagnostic for diabetes. Fasting is defined as no caloric intake for at least 8 hours. Fasting glucose between 100 mg/dl to 125 mg/dl is diagnostic of prediabetes. In a patient with classic symptoms of hyperglycemia or hyperglycemic crisis, a random glucose >/= 200 mg/dl is diagnostic for diabetes. In the absence of unequivocal hyperglycemia, results should be confirmed by repeat testing. The classification and Diagnosis of Diabetes Diabetes Care 202; 46: S19-S40. Current interpretive data was last revised 2022. Calcium 9.1 8.5 - 10.3 mg/dL [facility] Blood 05/12/2024 8:57 PM RUG SIZER 05/12/2024 9:32 PM RUG SIZER Result [facility] Duyen Malloy MD LAB BLOOD ORDERABLES Final Result Performing Organization Address [facility] Co de Phone Number [facility] Department [place] [address] * POCT glucose (05/12/2024 7:41 PM RUG SIZER) Glucose, POC 145 70 - 199 mg/dL Blood 05/12/2024 7:41 PM RUG SIZER 05/12/2024 7:41 PM RUG SIZER Tristan Hutton MD LAB POCT ORDERABLES - DEV ICE Final Result Performing Organization Address [facility] Co de Phone Number [facility] [place] [address] * POCT glucose (05/12/2024 5:39 PM RUG SIZER) Glucose, POC 107 70 - 199 mg/dL Blood 05/12/2024 5:39 PM RUG SIZER 05/12/2024 5:39 PM RUG SIZER Tristan Hutton MD LAB POCT ORDERABLES - DEV ICE Final Result Performing Organization Address [facility] Co de Phone Number [facility] [place] [address] * POCT glucose (05/12/2024 12:10 PM RUG SIZER) Glucose, POC 107 70 - 199 mg/dL Blood 05/12/2024 12:1 0 PM RUG SIZER 05/12/2024 12:10 PM RUG SIZER Tristan Hutton MD LAB POCT ORDERABLES - DEV ICE Final Result Performing Organization Address City/[facility] Co [place] [address] * POCT glucose (05/12/2024 8:30 AM RUG SIZER) Glucose, POC 88 70 - 199 mg/dL Blood 05/12/2024 8:3 0 AM RUG SIZER 05/12/2024 8:30 AM RUG SIZER us Tristan Hutton MD LAB POCT ORDERABLES - DEV ICE Final Result [facility] [place] [address] * (ABNORMAL) Differential, auto (05/11/2024 10:31 PM RUG SIZER) Neutrophil abs 7.8(H) 1.5 - 6.5 K/cumm Imm gran abs 0.2(H) 0.0 - 0.1 K/cumm [facility] Lymphocyte abs 3.0 0.8 - 3.3 K/cumm [facility] Monocyte abs 2.0(H) 0.2 - 0.8 K/cumm [facility] Eosinophil abs 0.2 0.0 - 0.5 K/cumm [facility] Basophil abs 0.1 0.0 - 0.1 K/cumm [facility] Neutrophil pct 58.9 % [facility] Comment: Interpretive Data Percent cell count reference ranges are not reported, since discordance with absolute values may lead to misinterpretation of CBC data. Current Interpretive Data was last revised on 2017. Imm gran pct 1.4 % [facility] Comment: Interpretive Data Percent cell count reference ranges are not reported, since discordance with absolute values may lead to misinterpretation of CBC data. Current Interpretive Data was last revised on 2017. Lymphocyte pct 22.4 % [facility] Comment: Interpretive Data Percent cell count reference ranges are not reported, since discordance with absolute values may lead to misinterpretation of CBC data. Current Interpretive Data was last revised on 2017. Monocyte pct 15.4 % [facility] Comment: Interpretive Data Percent cell count reference ranges are not reported, since discordance with absolute values may lead to misinterpretation of CBC data. Current Interpretive Data was last revised on 2017. Eosinophil pct 1.4 % [facility] Comment: Interpretive Data Percent cell count reference ranges are not reported, since discordance with absolute values may lead to misinterpretation of CBC data. Current Interpretive Data was last revised on 2017. Basophil pct 0.5 % [facility] Comment: Interpretive Data Percent cell count reference ranges are not reported, since discordance with absolute values may lead to misinterpretation of CBC data. Current Interpretive Data was last revised on 2017. Blood 05/11/2024 10:3 1 PM RUG SIZER 05/11/2024 11:44 PM RUG SIZER Ovi Albarran MD LAB BLOOD ORDERABLES Final Re sult [facility] Department [place] [address] * (ABNORMAL) CBC with auto differential (05/11/2024 10:31 PM RUG SIZER) WBC 13.2(H) 3.8 - 9.9 K/cumm Hgb 7.0(L) 11.9 - 15.5 g/dL [facility] Hct 21.1(L) 35.6 - 45.5 % [facility] Plt 148(L) 150 - 400 K/cumm [facility] MPV 9.8 9.1 - 12.3 fL [facility] RBC 2.30(L) 3.90 - 5.20 M/cumm [facility] MCV 91.7 81.3 - 96.4 fL [facility] MCH 30.4 27.1 - 33.3 pg [facility] MCHC 33.2 32.3 - 35.7 g/dL [facility] RDW CV 14.2 11.1 - 14.9 % [facility] RDW SD 46.5 35.7 - 48.1 fL [facility] NRBC abs 0.02(H) 0.00 - 0.01 K/cumm [facility] Blood 05/11/2024 10:3 1 PM RUG SIZER 05/11/2024 11:44 PM RUG SIZER Ovi Albarran MD LAB BLOOD ORDERABLES Final [facility] [place] [address] * (ABNORMAL) eGFR (05/11/2024 8:42 PM RUG SIZER) eGFR 23(L) >=60 mL/min/1. 73 m2 Comment: Interpretive Data Reference Interval Normal >/= 90 mL/min/1.73m2 Mildly decreased* 60 - 89 mL/min/1.73m2 Mildly to moderately decreased 45 - 59 mL/min/1.73m2 Moderately to severely decreased 30 - 44 mL/min/1.73m2 Severely decreased 15 - 29 mL/min/1.73m2 Kidney Failure < 15 mL/min/1.73m2 *Relative to young adult level Estimated glomerular filtration rate is determined by the 2020 CKD-EPI equation recommended by the National Kidney Foundation (A Unifying Approach to GFR Estimation: Recommendations of the NKF-ASK Task Force on Reassessing the Inclusion of Race in Diagnosing Kidney Disease, JASN 2020). The CKD-EPI equation should not be used for patients with unstable renal function and has not been validated in children and those over 70. Current interpretive data was last reviewed 2021. Blood 05/11/2024 8:42 PM RUG SIZER 05/11/2024 9:11 PM RUG SIZER Duyen Malloy MD LAB BLOOD ORDERABLES Final Result Performing Organization Address City/[facility]/ZIP Co de Phone Number [facility] Department [place] [place] [address] * (ABNORMAL) Phosphorus (05/11/2024 8:42 PM RUG SIZER) Phosphorus, pl 2.1(L) 2.3 - 4.5 mg/dL Blood 05/11/2024 8:42 PM RUG SIZER 05/11/2024 9:11 PM RUG SIZER Duyen Malloy MD LAB BLOOD ORDERABLES Final Result [facility] Department [place] [address] * Magnesium (05/11/2024 8:42 PM RUG SIZER) Pathologist [facility] Magnesium 2.2 1.4 - 2.5 mg/dL Blood 05/11/2024 8:42 PM RUG SIZER 05/11/2024 9:11 PM RUG SIZER Duyen Malloy MD LAB BLOOD ORDERABLES Final Result [facility] [place] [address] * (ABNORMAL) Basic metabolic panel (05/11/2024 8:42 PM RUG SIZER) Pathologist [facility] Sodium 139 135 - 145 mmol/L Potassium, pl 3.6 3.3 - 4.9 mmol/L [facility] Chloride 99 97 - 110 mmol/L [facility] CO2 32 22 - 32 mmol/L [facility] Anion gap 8 2 - 15 mmol/L [facility] BUN 6 6 - 25 mg/dL [facility] Creatinine 2.36(H) 0.60 - 1.10 mg/dL [facility] Glucose 123 70 - 199 mg/dL [facility] Comment: Interpretive Data Fasting glucose >/= 126 mg/dl is diagnostic for diabetes. Fasting is defined as no caloric intake for at least 8 hours. Fasting glucose between 100 mg/dl to 125 mg/dl is diagnostic of prediabetes. In a patient with classic symptoms of hyperglycemia or hyperglycemic crisis, a random glucose >/= 200 mg/dl is diagnostic for diabetes. In the absence of unequivocal hyperglycemia, results should be confirmed by repeat testing. The classification and Diagnosis of Diabetes Diabetes Care 2021; 46: S19-S40. Current interpretive data was last revised 2022. Calcium 8.9 8.5 - 10.3 mg/dL [facility] Blood 05/11/2024 8:42 PM RUG SIZER 05/11/2024 9:11 PM RUG SIZER Duyen Malloy MD LAB BLOOD ORDERABLES [place] [address] * POCT glucose (05/11/2024 7:41 PM RUG SIZER) Glucose, POC 121 70 - 199 mg/dL Blood 05/11/2024 7:41 PM RUG SIZER 05/11/2024 7:41 PM RUG SIZER Tristan Hutton MD LAB POCT ORDERABLES - DEV ICE Final Result Performing Organization Address [facility] Co [place] [address] * POCT glucose (05/11/2024 4:38 PM RUG SIZER) Glucose, POC 120 70 - 199 mg/dL Blood 05/11/2024 4:38 PM RUG SIZER 05/11/2024 4:38 PM RUG SIZER Tristan Hutton MD LAB POCT ORDERABLES - DEV ICE Final Result Performing Organization Address [facility]/ZIP Co de Phone Number [facility] [place] [place] [address] * POCT glucose (05/11/2024 11:45 AM RUG SIZER) Glucose, POC 81 70 - 199 mg/dL Blood 05/11/2024 11:4 5 AM RUG SIZER 05/11/2024 11:45 AM RUG SIZER Tristan Hutton MD LAB POCT ORDERABLES - DEV ICE Final Result Performing Organization Address City/[facility]/ZIP Co de Phone Number [facility] [place] [address] * POCT glucose (05/11/2024 9:19 AM RUG SIZER) [facility] Glucose, POC 95 70 - 199 mg/dL Blood 05/11/2024 9:19 AM RUG SIZER 05/11/2024 9:19 AM RUG SIZER Tristan Hutton MD LAB POCT ORDERABLES - DEV ICE Final Result Performing Organization Address City/[facility]/ZIP Co de Phone Number [facility] Department [place] [address] * (ABNORMAL) eGFR (05/10/2024 9:54 PM RUG SIZER) [facility] eGFR 13(L) >=60 mL/min/1. 73 m2 Comment: Interpretive Data Reference Interval Normal >/= 90 mL/min/1.73m2 Mildly decreased* 60 - 89 mL/min/1.73m2 Mildly to moderately decreased 45 - 59 mL/min/1.73m2 Moderately to severely decreased 30 - 44 mL/min/1.73m2 Severely decreased 15 - 29 mL/min/1.73m2 Kidney Failure < 15 mL/min/1.73m2 *Relative to young adult level Estimated glomerular filtration rate is determined by the 2020 CKD-EPI equation recommended by the National Kidney Foundation (A Unifying Approach to GFR Estimation: Recommendations of the NKF-ASK Task Force on Reassessing the Inclusion of Race in Diagnosing Kidney Disease, JASN 2020). The CKD-EPI equation should not be used for patients with unstable renal function and has not been validated in children and those over 70. Current interpretive data was last reviewed 2021. Blood 05/10/2024 9:54 PM RUG SIZER 05/10/2024 10:32 PM RUG SIZER us Duyen aMlloy MD LAB BLOOD ORDERABLES Final Result Performing Organization Address City/[facility]/ZIP Co de Phone Number [facility] Department [place] [address] * (ABNORMAL) Differential, auto (05/10/2024 9:54 PM RUG SIZER) Neutrophil abs 11.3(H) 1.5 - 6.5 K/cumm Imm gran abs 0.3(H) 0.0 - 0.1 K/cumm [facility] Lymphocyte abs 2.8 0.8 - 3.3 K/cumm [facility] Monocyte abs 2.0(H) 0.2 - 0.8 K/cumm [facility] Eosinophil abs 0.2 0.0 - 0.5 K/cumm [facility] Basophil abs 0.1 0.0 - 0.1 K/cumm [facility] Neutrophil pct 67.4 % [facility] Comment: Interpretive Data Percent cell count reference ranges are not reported, since discordance with absolute values may lead to misinterpretation of CBC data. Current Interpretive Data was last revised on 2017. Imm gran pct 1.9 % [facility] Comment: Interpretive Data Percent cell count reference ranges are not reported, since discordance with absolute values may lead to misinterpretation of CBC data. Current Interpretive Data was last revised on 2017. Lymphocyte pct 16.7 % [facility] Comment: Interpretive Data Percent cell count reference ranges are not reported, since discordance with absolute values may lead to misinterpretation of CBC data. Current Interpretive Data was last revised on 2017. Monocyte pct 12.2 % [facility] Comment: Interpretive Data Percent cell count reference ranges are not reported, since discordance with absolute values may lead to misinterpretation of CBC data. Current Interpretive Data was last revised on 2017. Eosinophil pct 1.3 % [facility] Comment: Interpretive Data Percent cell count reference ranges are not reported, since discordance with absolute values may lead to misinterpretation of CBC data. Current Interpretive Data was last revised on 2017. Basophil pct 0.5 % [facility] Comment: Interpretive Data Percent cell count reference ranges are not reported, since discordance with absolute values may lead to misinterpretation of CBC data. Current Interpretive Data was last revised on 2017. Blood 05/10/2024 9:54 PM RUG SIZER 05/10/2024 10:32 PM RUG SIZER Duyen Malloy MD LAB BLOOD ORDERABLES Final Result Performing Organization Address [facility] de Phone Number [facility] [place] [address] * (ABNORMAL) CBC with auto differential (05/10/2024 9:54 PM RUG SIZER) [facility] WBC 16.7(H) 3.8 - 9.9 K/cumm Hgb 7.4(L) 11.9 - 15.5 g/dL [facility] Hct 22.9(L) 35.6 - 45.5 % [facility] Plt 214 150 - 400 K/cumm [facility] MPV 9.5 9.1 - 12.3 fL [facility] RBC 2.50(L) 3.90 - 5.20 M/cumm [facility] MCV 91.6 81.3 - 96.4 fL [facility] MCH 29.6 27.1 - 33.3 pg [facility] MCHC 32.3 32.3 - 35.7 g/dL [facility] RDW CV 14.0 11.1 - 14.9 % [facility] RDW SD 46.5 35.7 - 48.1 fL [facility] NRBC abs 0.02(H) 0.00 - 0.01 K/cumm [facility] Blood 05/10/2024 9:54 PM RUG SIZER 05/10/2024 10:32 PM RUG SIZER Duyen Malloy MD LAB BLOOD ORDERABLES Final Result Performing Organization Address [facility] Co de Phone Number [facility] [place] [address] * Phosphorus (05/10/2024 9:54 PM RUG SIZER) [facility] Phosphorus, pl 4.0 2.3 - 4.5 mg/dL Blood 05/10/2024 9:54 PM RUG SIZER 05/10/2024 10:32 PM RUG SIZER Duyen Malloy MD LAB BLOOD ORDERABLES Final Result [facility] [place] [address] * Magnesium (05/10/2024 9:54 PM RUG SIZER) Pathologist [facility] Magnesium 2.5 1.4 - 2.5 mg/dL Blood 05/10/2024 9:54 PM RUG SIZER 05/10/2024 10:32 PM RUG SIZER Duyen Malloy MD LAB BLOOD ORDERABLES Final Result Performing Organization Address [facility] Co de Phone Number [facility] [place] [address] * (ABNORMAL) Basic metabolic panel (05/10/2024 9:54 PM RUG SIZER) Pathologist [facility] Sodium 137 135 - 145 mmol/L Potassium, pl 4.1 3.3 - 4.9 mmol/L [facility] Chloride 100 97 - 110 mmol/L [facility] CO2 28 22 - 32 mmol/L [facility] Anion gap 9 2 - 15 mmol/L [facility] BUN 15 6 - 25 mg/dL [facility] Creatinine 3.76(H) 0.60 - 1.10 mg/dL [facility] Comment:Repeated and Verifie d Glucose 83 70 - 199 mg/dL [facility] Comment: Interpretive Data Fasting glucose >/= 126 mg/dl is diagnostic for diabetes. Fasting is defined as no caloric intake for at least 8 hours. Fasting glucose between 100 mg/dl to 125 mg/dl is diagnostic of prediabetes. In a patient with classic symptoms of hyperglycemia or hyperglycemic crisis, a random glucose >/= 200 mg/dl is diagnostic for diabetes. In the absence of unequivocal hyperglycemia, results should be confirmed by repeat testing. The classification and Diagnosis of Diabetes Diabetes Care 202; 46: S19-S40. Current interpretive data was last revised 2022. Calcium 9.1 8.5 - 10.3 mg/dL [facility] Blood 05/10/2024 9:54 PM RUG SIZER 05/10/2024 10:32 PM RUG SIZER Duyen Malloy MD LAB BLOOD ORDERABLES Final Result Performing Organization Address [facility] Co de Phone Number [facility] [place] [address] * POCT glucose (05/10/2024 8:10 PM RUG SIZER) Glucose, POC 108 70 - 199 mg/dL Blood 05/10/2024 8:10 PM RUG SIZER 05/10/2024 8:10 PM RUG SIZER Result [facility] Tristan Hutton MD LAB POCT ORDERABLES - DEV ICE Final Result Performing Organization Address [facility] de Phone Number [facility] [place] [address] * POCT glucose (05/10/2024 11:35 AM RUG SIZER) Glucose, POC 81 70 - 199 mg/dL Blood 05/10/2024 11:3 5 AM RUG SIZER 05/10/2024 11:35 AM RUG SIZER Result [facility] Tristan Hutton MD LAB POCT ORDERABLES - DEV ICE Final Result Performing Organization Address [facility] de Phone Number [facility] [place] [address] * IR Tunneled Line Placement > 5 Years (05/10/2024 10:09 AM RUG SIZER) Anatomical Region Laterality Modality Body N/A X-Ray Angiograph y 05/10/2024 3:26 PM RUG SIZER Impressions 05/10/2024 5:45 PM RUG SIZER 1. Removal of previously placed right internal jugular vein approach non-tunneled central venous (Trialysis) catheter. 2. Successful tunneled 19 cm tip to cuff tunneled dialysis catheter placement via the right internal jugular vein. PLAN: The catheter is ready for immediate use. When treatment is completed, removal can be scheduled by calling [facility] - [phone] [facility] - [phone] Dictated by: Sylwia Jha MD The radiology attending physician has personally reviewed this study, and had reviewed and/or edited this written report and agrees with it. Electronically signed by: Palomo Guzmán M.D. Narrative 05/10/2024 5:45 PM RUG SIZER EXAMINATION: TUNNELED CENTRAL VENOUS CATHETER PLACEMENT USING ULTRASOUND GUIDANCE HISTORY/INDICATION: 59-year-old woman with ESRD status post trialysis catheter placement presenting for tunneled dialysis catheter placement. ATTENDING PRESENCE: Palomo Guzmán M.D., the attending radiologist, was present from the beginning to the end of the procedure. SEDATION: Procedural sedation was administered under the attending physician's direction and continuous monitoring by a trained nurse specialist who was independent from those actually performing the procedure. Total monitored sedation time was 25 minutes. TECHNIQUE: The risks, benefits and alternatives were discussed and informed consent was obtained. Prior to beginning the procedure, [place] Protocol was used to confirm the patient's identity and planned procedure. Fluoroscopy time has been recorded in the electronic medical record. Prior to the procedure, the central veins were evaluated by ultrasound, an image recorded and placed in the patient's chart. Maximum sterile barriers including cap, mask, hand hygiene, sterile gloves, sterile gown, large sterile drape and 2% chlorhexidine for cutaneous antisepsis were used. The previously placed right internal jugular vein approach non-tunneled central venous (trialysis) catheter was removed in a sterile fashion. Hemostasis was achieved. The skin over the right internal jugular vein was sterilely prepped, draped and infiltrated with 1% lidocaine. The vein was accessed with a 21 gauge needle using realtime ultrasound guidance. A guidewire and catheter were then passed centrally using fluoroscopic guidance. The intravascular length from the access site to the right atrium was then measured. After infiltrating the skin in the subclavicular region with 1% buffered lidocaine, a short transverse incision was made and the 19 cm tip to cuff tunneled dialysis catheter was tunneled to the internal jugular access site and inserted through a peel-away sheath. The dialysis catheter was flushed with 1000 U/ml heparin. The incision in the lower neck was closed using 4-0 Monocryl. A sterile dressing was applied. ESTIMATED BLOOD LOSS: Minimal. CONDITION: Stable DISCHARGED TO: Recovery and then to inpatient unit FINDINGS: Ultrasound image shows a patent vein in the lower neck. The final fluoroscopic image demonstrates the catheter with its tip in the right atrium. No complications are seen. Procedure Note Palomo Guzmán MD - 05/10/2024 EXAMINATION: TUNNELED CENTRAL VENOUS CATHETER PLACEMENT USING ULTRASOUND GUIDANCE HISTORY/INDICATION: 59-year-old woman with ESRD status post trialysis catheter placement presenting for tunneled dialysis catheter placement. ATTENDING PRESENCE: Palomo Guzmán M.D., the attending radiologist, was present from the beginning to the end of the procedure. SEDATION: Procedural sedation was administered under the attending physician's direction and continuous monitoring by a trained nurse specialist who was independent from those actually performing the procedure. Total monitored sedation time was 25 minutes. TECHNIQUE: The risks, benefits and alternatives were discussed and informed consent was obtained. Prior to beginning the procedure, [place] Protocol was used to confirm the patient's identity and planned procedure. Fluoroscopy time has been recorded in the electronic medical record. Prior to the procedure, the central veins were evaluated by ultrasound, an image recorded and placed in the patient's chart. Maximum sterile barriers including cap, mask, hand hygiene, sterile gloves, sterile gown, large sterile drape and 2% chlorhexidine for cutaneous antisepsis were used. The previously placed right internal jugular vein approach non-tunneled central venous (trialysis) catheter was removed in a sterile fashion. Hemostasis was achieved. The skin over the right internal jugular vein was sterilely prepped, draped and infiltrated with 1% lidocaine. The vein was accessed with a 21 gauge needle using realtime ultrasound guidance. A guidewire and catheter were then passed centrally using fluoroscopic guidance. The intravascular length from the access site to the right atrium was then measured. After infiltrating the skin in the subclavicular region with 1% buffered lidocaine, a short transverse incision was made and the 19 cm tip to cuff tunneled dialysis catheter was tunneled to the internal jugular access site and inserted through a peel-away sheath. The dialysis catheter was flushed with 1000 U/ml heparin. The incision in the lower neck was closed using 4-0 Monocryl. A sterile dressing was applied. ESTIMATED BLOOD LOSS: Minimal. CONDITION: Stable DISCHARGED TO: Recovery and then to inpatient unit FINDINGS: Ultrasound image shows a patent vein in the lower neck. The final fluoroscopic image demonstrates the catheter with its tip in the right atrium. No complications are seen. IMPRESSION: 1. Removal of previously placed right internal jugular vein approach non-tunneled central venous (Trialysis) catheter. 2. Successful tunneled 19 cm tip to cuff tunneled dialysis catheter placement via the right internal jugular vein. PLAN: The catheter is ready for immediate use. When treatment is completed, removal can be scheduled by calling [facility] - [phone] [facility] - [phone] Dictated by: Sylwia Jha MD The radiology attending physician has personally reviewed this study, and had reviewed and/or edited this written report and agrees with it. Electronically signed by: Palomo Guzmán M.D. Tristan Hutton MD IMG IR PROCEDURES Final R esult * POCT glucose (05/10/2024 7:20 AM RUG SIZER) Glucose, POC 78 70 - 199 mg/dL Blood 05/10/2024 7:20 AM RUG SIZER 05/10/2024 7:20 AM RUG SIZER Tristan Hutton MD LAB POCT ORDERABLES - DEV ICE Final Result Performing Organization Address [facility] Co de Phone Number [facility] Department [place] [address] * POCT glucose (05/10/2024 4:03 AM RUG SIZER) Glucose, POC 86 70 - 199 mg/dL Blood 05/10/2024 4:03 AM RUG SIZER 05/10/2024 4:03 AM RUG SIZER Tristan Hutton MD LAB POCT ORDERABLES - DEV ICE Final Result Performing Organization Address [facility] de Phone Number [facility] Department [place] [address] * (ABNORMAL) eGFR (05/09/2024 9:55 PM RUG SIZER) Pathologist [facility] eGFR 37(L) >=60 mL/min/1. 73 m2 Comment: Interpretive Data Reference Interval Normal >/= 90 mL/min/1.73m2 Mildly decreased* 60 - 89 mL/min/1.73m2 Mildly to moderately decreased 45 - 59 mL/min/1.73m2 Moderately to severely decreased 30 - 44 mL/min/1.73m2 Severely decreased 15 - 29 mL/min/1.73m2 Kidney Failure < 15 mL/min/1.73m2 *Relative to young adult level Estimated glomerular filtration rate is determined by the 2020 CKD-EPI equation recommended by the National Kidney Foundation (A Unifying Approach to GFR Estimation: Recommendations of the NKF-ASK Task Force on Reassessing the Inclusion of Race in Diagnosing Kidney Disease, JASN 2020). The CKD-EPI equation should not be used for patients with unstable renal function and has not been validated in children and those over 70. Current interpretive data was last reviewed 2021. Blood 05/09/2024 9:55 PM RUG SIZER 05/09/2024 10:35 PM RUG SIZER Duyen Malloy MD LAB BLOOD ORDERABLES Final Result [facility] Department [place] [address] * (ABNORMAL) Differential, auto (05/09/2024 9:55 PM RUG SIZER) Pathologist [facility] Neutrophil abs 13.0(H) 1.5 - 6.5 K/cumm Imm gran abs 0.4(H) 0.0 - 0.1 K/cumm [facility] Lymphocyte abs 2.4 0.8 - 3.3 K/cumm [facility] Monocyte abs 2.0(H) 0.2 - 0.8 K/cumm [facility] Eosinophil abs 0.3 0.0 - 0.5 K/cumm [facility] Basophil abs 0.1 0.0 - 0.1 K/cumm [facility] Neutrophil pct 71.7 % [facility] Comment: Interpretive Data Percent cell count reference ranges are not reported, since discordance with absolute values may lead to misinterpretation of CBC data. Current Interpretive Data was last revised on 2017. Imm gran pct 2.2 % [facility] Comment: Interpretive Data Percent cell count reference ranges are not reported, since discordance with absolute values may lead to misinterpretation of CBC data. Current Interpretive Data was last revised on 2017. Lymphocyte pct 13.2 % [facility] Comment: Interpretive Data Percent cell count reference ranges are not reported, since discordance with absolute values may lead to misinterpretation of CBC data. Current Interpretive Data was last revised on 2017. Monocyte pct 11.1 % [facility] Comment: Interpretive Data Percent cell count reference ranges are not reported, since discordance with absolute values may lead to misinterpretation of CBC data. Current Interpretive Data was last revised on 2017. Eosinophil pct 1.4 % [facility] Comment: Interpretive Data Percent cell count reference ranges are not reported, since discordance with absolute values may lead to misinterpretation of CBC data. Current Interpretive Data was last revised on 2017. Basophil pct 0.4 % [facility] Comment: Interpretive Data Percent cell count reference ranges are not reported, since discordance with absolute values may lead to misinterpretation of CBC data. Current Interpretive Data was last revised on 2017. Blood 05/09/2024 9:55 PM RUG SIZER 05/09/2024 10:35 PM RUG SIZER us Duyen Malloy MD LAB BLOOD ORDERABLES Final Result [facility] Department [place] [address] * (ABNORMAL) CBC with auto differential (05/09/2024 9:55 PM RUG SIZER) WBC 18.1(H) 3.8 - 9.9 K/cumm Hgb 7.4(L) 11.9 - 15.5 g/dL [facility] Hct 22.6(L) 35.6 - 45.5 % [facility] Plt 195 150 - 400 K/cumm [facility] MPV 10.0 9.1 - 12.3 fL [facility] RBC 2.47(L) 3.90 - 5.20 M/cumm [facility] MCV 91.5 81.3 - 96.4 fL [facility] MCH 30.0 27.1 - 33.3 pg [facility] MCHC 32.7 32.3 - 35.7 g/dL [facility] RDW CV 13.7 11.1 - 14.9 % [facility] RDW SD 46.1 35.7 - 48.1 fL [facility] NRBC abs 0.02(H) 0.00 - 0.01 K/cumm [facility] Blood 05/09/2024 9:55 PM RUG SIZER 05/09/2024 10:35 PM RUG SIZER Duyen Malloy MD LAB BLOOD ORDERABLES Final Result [facility] Department [place] [address] * (ABNORMAL) Phosphorus (05/09/2024 9:55 PM RUG SIZER) Phosphorus, pl 2.2(L) 2.3 - 4.5 mg/dL Blood 05/09/2024 9:55 PM RUG SIZER 05/09/2024 10:35 PM RUG SIZER Duyen Malloy MD LAB BLOOD ORDERABLES Final Result [facility] [place] [address] * Magnesium (05/09/2024 9:55 PM RUG SIZER) Pathologist [facility] Magnesium 2.2 1.4 - 2.5 mg/dL Blood 05/09/2024 9:55 PM RUG SIZER 05/09/2024 10:35 PM RUG SIZER Duyen Malloy MD LAB BLOOD ORDERABLES Final Result Performing Organization Address City/[facility]/ZIP Co de Phone Number [facility] Department [place] [address] * (ABNORMAL) Basic metabolic panel (05/09/2024 9:55 PM RUG SIZER) Pathologist [facility] Sodium 137 135 - 145 mmol/L Potassium, pl 3.8 3.3 - 4.9 mmol/L [facility] Chloride 100 97 - 110 mmol/L [facility] CO2 30 22 - 32 mmol/L [facility] Anion gap 7 2 - 15 mmol/L [facility] BUN 5(L) 6 - 25 mg/dL [facility] Creatinine 1.61(H) 0.60 - 1.10 mg/dL [facility] Glucose 105 70 - 199 mg/dL [facility] Comment: Interpretive Data Fasting glucose >/= 126 mg/dl is diagnostic for diabetes. Fasting is defined as no caloric intake for at least 8 hours. Fasting glucose between 100 mg/dl to 125 mg/dl is diagnostic of prediabetes. In a patient with classic symptoms of hyperglycemia or hyperglycemic crisis, a random glucose >/= 200 mg/dl is diagnostic for diabetes. In the absence of unequivocal hyperglycemia, results should be confirmed by repeat testing. The classification and Diagnosis of Diabetes Diabetes Care 2021; 46: S19-S40. Current interpretive data was last revised 2022. Calcium 8.8 8.5 - 10.3 mg/dL [facility] Blood 05/09/2024 9:55 PM RUG SIZER 05/09/2024 10:35 PM RUG SIZER Duyen Malloy MD LAB BLOOD ORDERABLES Final Result Performing Organization Address City/[facility]/ZIP Co de Phone Number [facility] Department [place] [address] * POCT glucose (05/09/2024 8:07 PM RUG SIZER) Glucose, POC 124 70 - 199 mg/dL Blood 05/09/2024 8:07 PM RUG SIZER 05/09/2024 8:07 PM RUG SIZER Tristan Hutton MD LAB POCT ORDERABLES - DEV ICE Final Result Performing Organization Address [facility] [place] [address] * POCT glucose (05/09/2024 5:07 PM RUG SIZER) Glucose, POC 90 70 - 199 mg/dL Blood 05/09/2024 5:07 PM RUG SIZER 05/09/2024 5:07 PM RUG SIZER Tristan Hutton MD LAB POCT ORDERABLES - DEV ICE Final Result Performing Organization Address [facility] [place] [address] * POCT glucose (05/09/2024 12:11 PM RUG SIZER) Glucose, POC 132 70 - 199 mg/dL Blood 05/09/2024 12:1 1 PM RUG SIZER 05/09/2024 12:11 PM RUG SIZER Tristan Hutton MD LAB POCT ORDERABLES - DEV ICE Final Result Performing Organization Address [facility] [place] [address] * US Vein Mapping Duplex Upper Extremity Bilateral (05/09/2024 11:33 AM RUG SIZER) Anatomical Region Laterality Modality Vascular Bilateral Ultrasound 05/09/2024 10:3 8 AM RUG SIZER Narrative 05/10/2024 9:36 AM RUG SIZER [facility] - Department of Vascular Surgery, Vascular Laboratory [address] [place] [id number] Upper Extremity Vein Mapping Report Patient Name: DARLINE CUI L : 1965 (59y 1m) Study Date: 05/09/2024 10:38:28 AM Gender: F Elevator Installer: ALDAIR Location: [id number] Ref Provider: TRISTAN HUTTON Quality: Adequate Order Provider: TRISTAN HUTTON PROCEDURES: Mapping Report: Bilateral Upper Extremity Vein Mapping. INDICATIONS: dialysis planning - MEASUREMENTS: Right Value Units Left Value Units Rt Axillary Vein Diameter 1.01 cm Lt Axillary Vein Diameter 0.53 cm Rt Prox Brachial Vein D. 1 0.20 cm Lt Prox Brachial Vein D. 1 0.48 cm Rt Prox Brachial Vein D. 2 0.20 cm Lt Prox Brachial Vein D. 2 0.39 cm Rt Mid Brachial Vein D. 1 0.06 cm Lt Mid Brachial Vein D. 1 0.48 cm Rt Mid Brachial Vein D. 2 0.47 cm Lt Mid Brachial Vein D. 2 0.22 cm Rt Dist Brachial Vein D. 1 0.24 cm Lt Dist Brachial Vein D. 1 0.34 cm Rt Dist Brachial Vein D. 2 0.21 cm Lt Dist Brachial Vein D. 2 0.21 cm Rt Cephalic Vein Zone 1 0.24 cm Lt Cephalic Vein Zone 1 0.32 cm Rt Cephalic Vein Zone 2 0.20 cm Lt Cephalic Vein Zone 2 0.25 cm Rt Cephalic Vein Zone 3 0.22 cm Lt Cephalic Vein Zone 3 0.22 cm Rt Cephalic Vein Zone 4 0.44 cm Lt Cephalic Vein Zone 4 0.47 cm Rt Cephalic Vein Zone 5 0.17 cm Lt Cephalic Vein Zone 5 0.21 cm Rt Cephalic Vein Zone 6 0.11 cm Lt Cephalic Vein Zone 6 0.08 cm Rt Cephalic Vein Zone 7 0.07 cm Lt Cephalic Vein Zone 7 0.09 cm Rt Basilic Vein Zone 1 LATE BRANCHING cm Lt Basilic Vein Zone 1 0.44 cm Rt Basilic Vein Zone 2 0.26 cm Lt Basilic Vein Zone 2 0.21 cm Rt Basilic Vein Zone 3 0.17 cm Lt Basilic Vein Zone 3 0.23 cm Rt Basilic Vein Zone 4 0.09 cm Lt Basilic Vein Zone 4 0.18 cm Rt Basilic Vein Zone 5 0.07 cm Lt Basilic Vein Zone 5 0.06 cm Rt Basilic Vein Zone 6 0.06 cm Lt Basilic Vein Zone 6 0.05 cm Rt Basilic Vein Zone 7 0.07 cm Lt Basilic Vein Zone 7 0.05 cm Right Value Units Left Value Units FINDINGS: Performing Elevator Installer: Disha Duke RDMS, RVT. Bilateral: Venous Doppler signals in the bilateral deep upper extremities are within normal limits for spontaneity and phasicity; normal response to compression maneuvers. Duplex imaging of bilateral cephalic and basilic veins reveals the cross- sectional measurements noted above. Bilateral superficial vein thrombus. Right: Positive for superficial vein thrombus in the right upper extremity. Superficial veins involved include the cephalic vein at AC. Left: Positive for superficial vein thrombus in the left upper extremity. Superficial veins involved include the cephalic vein at proximal upper arm and AC where there is an IV catheter present. CONCLUSIONS: 1. No evidence of acute deep vein thrombosis bilaterally in the upper extremities. 2. Duplex imaging of bilateral cephalic and basilic veins reveals the cross- sectional measurements noted above. 3. Superficial vein thrombus in the right upper extremity. 4. Superficial vein thrombus in the left upper extremity. 5. There is an indwelling venous line on the left with pericatheter thrombus. HISTORY: HLD, DM (no meds), asthma, CKD, presenting to the ED with shortness of breath and leg itching. - PREVIOUS STUDIES: No previous studies for comparison. DISCLAIMER: Zone 1 = proximal arm; Zone 2 = mid arm; Zone 3 = distal arm; Zone 4 = ante- cubital; Zone 5 = proximal forearm; Zone 6 = mid forearm; Zone 7 = distal forearm. All measurements are obtained with a tourniquet placed on the upper arm unless it is contraindicated and noted in the report. The study images and the final report will be retained in the patient chart by the Vascular Laboratory for the legally required time period. This chart constitutes the legal record of any testing performed. ATTESTATION: I have reviewed and interpreted the pertinent images and measurements of this study. I attest to the conclusions in the final report that is provided above. Electronically Signed By: Jourdan Szymanski MD FACS 05/10/2024 9:26:35 AM RUG SIZER Procedure Note Jourdan Szymanski MD - 05/10/2024 [facility] - Department of Vascular Surgery,Vascular Laboratory [address] [place] [address] Upper Extremity Vein Mapping Report Patient Name: DARLINE CUI L : 1965 (59y 1m) Study Date: 05/09/2024 10:38:28 AM Gender: F Elevator Installer: ALDAIR Location: [id number] Ref Provider: TRISTAN HUTTON Quality: Adequate Order Provider: TRISTAN HUTTON PROCEDURES: Mapping Report: Bilateral Upper Extremity Vein Mapping. INDICATIONS: dialysis planning - MEASUREMENTS: Right Value Units Left Value Units Rt Axillary Vein Diameter 1.01 cm Lt Axillary Vein Diameter 0.53 cm Rt Prox Brachial Vein D. 1 0.20 cm Lt Prox Brachial Vein D. 1 0.48 cm Rt Prox Brachial Vein D. 2 0.20 cm Lt Prox Brachial Vein D. 2 0.39 cm Rt Mid Brachial Vein D. 1 0.06 cm Lt Mid Brachial Vein D. 1 0.48 cm Rt Mid Brachial Vein D. 2 0.47 cm Lt Mid Brachial Vein D. 2 0.22 cm Rt Dist Brachial Vein D. 1 0.24 cm Lt Dist Brachial Vein D. 1 0.34 cm Rt Dist Brachial Vein D. 2 0.21 cm Lt Dist Brachial Vein D. 2 0.21 cm Rt Cephalic Vein Zone 1 0.24 cm Lt Cephalic Vein Zone 1 0.32 cm Rt Cephalic Vein Zone 2 0.20 cm Lt Cephalic Vein Zone 2 0.25 cm Rt Cephalic Vein Zone 3 0.22 cm Lt Cephalic Vein Zone 3 0.22 cm Rt Cephalic Vein Zone 4 0.44 cm Lt Cephalic Vein Zone 4 0.47 cm Rt Cephalic Vein Zone 5 0.17 cm Lt Cephalic Vein Zone 5 0.21 cm Rt Cephalic Vein Zone 6 0.11 cm Lt Cephalic Vein Zone 6 0.08 cm Rt Cephalic Vein Zone 7 0.07 cm Lt Cephalic Vein Zone 7 0.09 cm Rt Basilic Vein Zone 1 LATE BRANCHING cm Lt Basilic Vein Zone 1 0.44 cm Rt Basilic Vein Zone 2 0.26 cm Lt Basilic Vein Zone 2 0.21 cm Rt Basilic Vein Zone 3 0.17 cm Lt Basilic Vein Zone 3 0.23 cm Rt Basilic Vein Zone 4 0.09 cm Lt Basilic Vein Zone 4 0.18 cm Rt Basilic Vein Zone 5 0.07 cm Lt Basilic Vein Zone 5 0.06 cm Rt Basilic Vein Zone 6 0.06 cm Lt Basilic Vein Zone 6 0.05 cm Rt Basilic Vein Zone 7 0.07 cm Lt Basilic Vein Zone 7 0.05 cm Right Value Units Left Value Units FINDINGS: Performing Elevator Installer: Disha Duke RDMS, RVT. Bilateral: Venous Doppler signals in the bilateral deep upper extremitiesare within normal limits for spontaneity and phasicity; normal response tocompression maneuvers. Duplex imaging of bilateral cephalic and basilic veins reveals thecross- sectional measurements noted above. Bilateral superficial vein thrombus. Right: Positive for superficial vein thrombus in the right upperextremity. Superficial veins involved include the cephalic vein at AC. Left: Positive for superficial vein thrombus in the left upper extremity.Superficial veins involved include the cephalic vein at proximal upper arm and ACwhere there is an IV catheter present. CONCLUSIONS: 1. No evidence of acute deep vein thrombosis bilaterally in the upperextremities. 2. Duplex imaging of bilateral cephalic and basilic veins reveals thecross- sectional measurements noted above. 3. Superficial vein thrombus in the right upper extremity. 4. Superficial vein thrombus in the left upper extremity. 5. There is an indwelling venous line on the left with pericatheterthrombus. HISTORY: HLD, DM (no meds), asthma, CKD, presenting to the ED with shortness ofbreath and leg itching. - PREVIOUS STUDIES: No previous studies for comparison. DISCLAIMER: Zone 1 = proximal arm; Zone 2 = mid arm; Zone 3 = distal arm; Zone 4 =ante- cubital; Zone 5 = proximal forearm; Zone 6 = mid forearm; Zone 7 = distal forearm. All measurements are obtained with a tourniquet placed on the upper armunless it is contraindicated and noted in the report. The study images and the final report will be retained in the patientchart by the Vascular Laboratory for the legally required time period. This chartconstitutes the legal record of any testing performed. ATTESTATION: I have reviewed and interpreted the pertinent images and measurements ofthis study. I attest to the conclusions in the final report that is provided above. Electronically Signed By: Jourdan Szymanski MD [facility] 05/10/2024 9:26:35 AM RUG SIZER us Tristansa Jossy Hutton MD [facility] [place] PROCEDURES Final R esult * POCT glucose (05/09/2024 7:11 AM RUG SIZER) Glucose, POC 111 70 - 199 mg/dL Blood 05/09/2024 7:11 AM RUG SIZER 05/09/2024 7:11 AM RUG SIZER Duyen Malloy MD LAB POCT ORDERABLES - ARELY CE Final Result Performing Organization Address [facility] de Phone Number [facility] [place] [address] * POCT glucose (05/08/2024 8:19 PM RUG SIZER) Glucose, POC 128 70 - 199 mg/dL Blood 05/08/2024 8:19 PM RUG SIZER 05/08/2024 8:19 PM RUG SIZER Duyen Malloy MD LAB POCT ORDERABLES - ARELY CE Final Result Performing Organization Address [facility] de Phone Number [facility] [place] [address] * POCT glucose (05/08/2024 5:16 PM RUG SIZER) Glucose, POC 133 70 - 199 mg/dL Blood 05/08/2024 5:16 PM RUG SIZER 05/08/2024 5:16 PM RUG SIZER Duyen Malloy MD LAB POCT ORDERABLES - ARELY CE Final Result Performing Organization Address [facility] de Phone Number [facility] [place] [address] * POCT glucose (05/08/2024 11:04 AM RUG SIZER) Glucose, POC 161 70 - 199 mg/dL Blood 05/08/2024 11:0 4 AM RUG SIZER 05/08/2024 11:04 AM RUG SIZER Duyen Malloy MD LAB POCT ORDERABLES - ARELY CE Final Result [facility] [place] [address] * POCT glucose (05/08/2024 7:29 AM RUG SIZER) Glucose, POC 94 70 - 199 mg/dL Blood 05/08/2024 7:29 AM RUG SIZER 05/08/2024 7:29 AM RUG SIZER Duyen Malloy MD LAB POCT ORDERABLES - ARELY CE Final Result Performing Organization Address [facility] Co de Phone Number [facility] [place] [address] * (ABNORMAL) eGFR (05/08/2024 5:11 AM RUG SIZER) eGFR 25(L) >=60 mL/min/1. 73 m2 Comment: Interpretive Data Reference Interval Normal >/= 90 mL/min/1.73m2 Mildly decreased* 60 - 89 mL/min/1.73m2 Mildly to moderately decreased 45 - 59 mL/min/1.73m2 Moderately to severely decreased 30 - 44 mL/min/1.73m2 Severely decreased 15 - 29 mL/min/1.73m2 Kidney Failure < 15 mL/min/1.73m2 *Relative to young adult level Estimated glomerular filtration rate is determined by the 2020 CKD-EPI equation recommended by the National Kidney Foundation (A Unifying Approach to GFR Estimation: Recommendations of the NKF-ASK Task Force on Reassessing the Inclusion of Race in Diagnosing Kidney Disease, JASN 2020). The CKD-EPI equation should not be used for patients with unstable renal function and has not been validated in children and those over 70. Current interpretive data was last reviewed 2021. Blood 05/08/2024 5:11 AM RUG SIZER 05/08/2024 5:19 AM RUG SIZER Duyen Malloy MD LAB BLOOD ORDERABLES Final Result [facility] Department [place] [address] * (ABNORMAL) Differential, auto (05/08/2024 5:11 AM RUG SIZER) Neutrophil abs 11.3(H) 1.5 - 6.5 K/cumm Imm gran abs 0.6(H) 0.0 - 0.1 K/cumm [facility] Lymphocyte abs 2.1 0.8 - 3.3 K/cumm [facility] Monocyte abs 2.3(H) 0.2 - 0.8 K/cumm [facility] Eosinophil abs 0.3 0.0 - 0.5 K/cumm [facility] Basophil abs 0.1 0.0 - 0.1 K/cumm [facility] Neutrophil pct 67.9 % [facility] Comment: Interpretive Data Percent cell count reference ranges are not reported, since discordance with absolute values may lead to misinterpretation of CBC data. Current Interpretive Data was last revised on 2017. Imm gran pct 3.5 % [facility] Comment: Interpretive Data Percent cell count reference ranges are not reported, since discordance with absolute values may lead to misinterpretation of CBC data. Current Interpretive Data was last revised on 2017. Lymphocyte pct 12.5 % [facility] Comment: Interpretive Data Percent cell count reference ranges are not reported, since discordance with absolute values may lead to misinterpretation of CBC data. Current Interpretive Data was last revised on 2017. Monocyte pct 14.1 % [facility] Comment: Interpretive Data Percent cell count reference ranges are not reported, since discordance with absolute values may lead to misinterpretation of CBC data. Current Interpretive Data was last revised on 2017. Eosinophil pct 1.6 % [facility] Comment: Interpretive Data Percent cell count reference ranges are not reported, since discordance with absolute values may lead to misinterpretation of CBC data. Current Interpretive Data was last revised on 2017. Basophil pct 0.4 % [facility] Comment: Interpretive Data Percent cell count reference ranges are not reported, since discordance with absolute values may lead to misinterpretation of CBC data. Current Interpretive Data was last revised on 2017. Blood 05/08/2024 5:1 1 AM RUG SIZER 05/08/2024 5:19 AM RUG SIZER Duyen Malloy MD LAB BLOOD ORDERABLES Final Result Performing Organization Address City/[facility]/ZIP Co de Phone Number [facility] [place] [address] * (ABNORMAL) CBC with auto differential (05/08/2024 5:11 AM RUG SIZER) Pathologist [facility] WBC 16.6(H) 3.8 - 9.9 K/cumm Hgb 7.1(L) 11.9 - 15.5 g/dL [facility] Hct 21.7(L) 35.6 - 45.5 % [facility] Plt 194 150 - 400 K/cumm [facility] MPV 9.6 9.1 - 12.3 fL [facility] RBC 2.41(L) 3.90 - 5.20 M/cumm [facility] MCV 90.0 81.3 - 96.4 fL [facility] MCH 29.5 27.1 - 33.3 pg [facility] MCHC 32.7 32.3 - 35.7 g/dL [facility] RDW CV 13.5 11.1 - 14.9 % [facility] RDW SD 44.5 35.7 - 48.1 fL [facility] NRBC abs 0.04(H) 0.00 - 0.01 K/cumm [facility] Blood 05/08/2024 5:11 AM RUG SIZER 05/08/2024 5:19 AM RUG SIZER Duyen Malloy MD LAB BLOOD ORDERABLES Final Result Performing Organization Address City/[facility]/ZIP Co de Phone Number [facility] Department [place] [address] * Phosphorus (05/08/2024 5:11 AM RUG SIZER) Pathologist [facility] Phosphorus, pl 2.6 2.3 - 4.5 mg/dL Blood 05/08/2024 5:11 AM RUG SIZER 05/08/2024 5:19 AM RUG SIZER Duyen Malloy MD LAB BLOOD ORDERABLES Final Result Performing Organization Address City/[facility] Co de Phone Number [facility] [place] [address] * Magnesium (05/08/2024 5:11 AM RUG SIZER) [facility] Magnesium 2.3 1.4 - 2.5 mg/dL Blood 05/08/2024 5:11 AM RUG SIZER 05/08/2024 5:19 AM RUG SIZER Duyen Malloy MD LAB BLOOD ORDERABLES Final Result Performing Organization Address [facility] de Phone Number [facility] Department [place] [address] * (ABNORMAL) Basic metabolic panel (05/08/2024 5:11 AM RUG SIZER) [facility] Sodium 135 135 - 145 mmol/L Potassium, pl 3.8 3.3 - 4.9 mmol/L [facility] Chloride 100 97 - 110 mmol/L [facility] CO2 30 22 - 32 mmol/L [facility] Anion gap 5 2 - 15 mmol/L [facility] BUN 7 6 - 25 mg/dL [facility] Creatinine 2.26(H) 0.60 - 1.10 mg/dL [facility] Glucose 83 70 - 199 mg/dL [facility] Comment: Interpretive Data Fasting glucose >/= 126 mg/dl is diagnostic for diabetes. Fasting is defined as no caloric intake for at least 8 hours. Fasting glucose between 100 mg/dl to 125 mg/dl is diagnostic of prediabetes. In a patient with classic symptoms of hyperglycemia or hyperglycemic crisis, a random glucose >/= 200 mg/dl is diagnostic for diabetes. In the absence of unequivocal hyperglycemia, results should be confirmed by repeat testing. The classification and Diagnosis of Diabetes Diabetes Care 2021; 46: S19-S40. Current interpretive data was last revised 2022. Calcium 9.2 8.5 - 10.3 mg/dL [facility] Blood 05/08/2024 5:11 AM RUG SIZER 05/08/2024 5:19 AM RUG SIZER Duyen Malloy MD LAB BLOOD ORDERABLES Final Result Performing Organization Address City/[facility] Co de Phone Number [facility] [place] [address] * POCT glucose (05/07/2024 8:37 PM RUG SIZER) Glucose, POC 129 70 - 199 mg/dL Blood 05/07/2024 8:37 PM RUG SIZER 05/07/2024 8:37 PM RUG SIZER Duyen Malloy MD LAB POCT ORDERABLES - ARELY CE Final Result Performing Organization Address [facility] Co de Phone Number [facility] [place] [address] * POCT glucose (05/07/2024 3:07 PM RUG SIZER) Glucose, POC 171 70 - 199 mg/dL Blood 05/07/2024 3:07 PM RUG SIZER 05/07/2024 3:07 PM RUG SIZER Duyen Malloy MD LAB POCT ORDERABLES - ARELY CE Final Result Performing Organization Address [facility] de Phone Number [facility] [place] [address] * POCT glucose (05/07/2024 11:08 AM RUG SIZER) Glucose, POC 131 70 - 199 mg/dL Blood 05/07/2024 11:0 8 AM RUG SIZER 05/07/2024 11:08 AM RUG SIZER Duyen Malloy MD LAB POCT ORDERABLES - ARELY CE Final Result Performing Organization Address City/[facility] Co de Phone Number [facility] [place] [address] * POCT glucose (05/07/2024 7:28 AM RUG SIZER) Glucose, POC 98 70 - 199 mg/dL Blood 05/07/2024 7:28 AM RUG SIZER 05/07/2024 7:28 AM RUG SIZER Duyen Malloy MD LAB POCT ORDERABLES - ARELY CE Final Result Performing Organization Address [facility] de Phone Number [facility] Department [place] [address] * (ABNORMAL) eGFR (05/07/2024 4:14 AM RUG SIZER) eGFR 17(L) >=60 mL/min/1. 73 m2 Comment: Interpretive Data Reference Interval Normal >/= 90 mL/min/1.73m2 Mildly decreased* 60 - 89 mL/min/1.73m2 Mildly to moderately decreased 45 - 59 mL/min/1.73m2 Moderately to severely decreased 30 - 44 mL/min/1.73m2 Severely decreased 15 - 29 mL/min/1.73m2 Kidney Failure < 15 mL/min/1.73m2 *Relative to young adult level Estimated glomerular filtration rate is determined by the 2020 CKD-EPI equation recommended by the National Kidney Foundation (A Unifying Approach to GFR Estimation: Recommendations of the NKF-ASK Task Force on Reassessing the Inclusion of Race in Diagnosing Kidney Disease, JASN 2020). The CKD-EPI equation should not be used for patients with unstable renal function and has not been validated in children and those over 70. Current interpretive data was last reviewed 2021. Blood 05/07/2024 4:14 AM RUG SIZER 05/07/2024 4:28 AM RUG SIZER us Duyen Malloy MD LAB BLOOD ORDERABLES Final Result [facility] Department [place] [address] * (ABNORMAL) Differential, auto (05/07/2024 4:14 AM RUG SIZER) Neutrophil abs 13.3(H) 1.5 - 6.5 K/cumm Imm gran abs 0.3(H) 0.0 - 0.1 K/cumm [facility] Lymphocyte abs 1.1 0.8 - 3.3 K/cumm [facility] Monocyte abs 1.4(H) 0.2 - 0.8 K/cumm [facility] Eosinophil abs 0.3 0.0 - 0.5 K/cumm [facility] Basophil abs 0.1 0.0 - 0.1 K/cumm [facility] Neutrophil pct 80.7 % [facility] Comment: Interpretive Data Percent cell count reference ranges are not reported, since discordance with absolute values may lead to misinterpretation of CBC data. Current Interpretive Data was last revised on 2017. Imm gran pct 1.9 % [facility] Comment: Interpretive Data Percent cell count reference ranges are not reported, since discordance with absolute values may lead to misinterpretation of CBC data. Current Interpretive Data was last revised on 2017. Lymphocyte pct 6.7 % [facility] Comment: Interpretive Data Percent cell count reference ranges are not reported, since discordance with absolute values may lead to misinterpretation of CBC data. Current Interpretive Data was last revised on 2017. Monocyte pct 8.3 % [facility] Comment: Interpretive Data Percent cell count reference ranges are not reported, since discordance with absolute values may lead to misinterpretation of CBC data. Current Interpretive Data was last revised on 2017. Eosinophil pct 2.0 % [facility] Comment: Interpretive Data Percent cell count reference ranges are not reported, since discordance with absolute values may lead to misinterpretation of CBC data. Current Interpretive Data was last revised on 2017. Basophil pct 0.4 % [facility] Comment: Interpretive Data Percent cell count reference ranges are not reported, since discordance with absolute values may lead to misinterpretation of CBC data. Current Interpretive Data was last revised on 2017. Blood 05/07/2024 4:14 AM RUG SIZER 05/07/2024 4:28 AM RUG SIZER Duyen Malloy MD LAB BLOOD ORDERABLES Final Result Performing Organization Address City/[facility] Co de Phone Number [facility] Department [place] [address] * (ABNORMAL) CBC with auto differential (05/07/2024 4:14 AM RUG SIZER) WBC 16.4(H) 3.8 - 9.9 K/cumm Hgb 7.9(L) 11.9 - 15.5 g/dL [facility] Hct 24.0(L) 35.6 - 45.5 % [facility] Plt 182 150 - 400 K/cumm [facility] MPV 9.6 9.1 - 12.3 fL [facility] RBC 2.70(L) 3.90 - 5.20 M/cumm [facility] MCV 88.9 81.3 - 96.4 fL [facility] MCH 29.3 27.1 - 33.3 pg [facility] MCHC 32.9 32.3 - 35.7 g/dL [facility] RDW CV 13.2 11.1 - 14.9 % [facility] RDW SD 42.6 35.7 - 48.1 fL [facility] NRBC abs 0.00 0.00 - 0.01 K/cumm [facility] Blood 05/07/2024 4:14 AM RUG SIZER 05/07/2024 4:28 AM RUG SIZER Duyen Malloy MD LAB BLOOD ORDERABLES Final Result Performing Organization Address City/[facility]/ZIP Co de Phone Number [facility] [place] [address] * Phosphorus (05/07/2024 4:14 AM RUG SIZER) Pathologist [facility] Phosphorus, pl 2.7 2.3 - 4.5 mg/dL Blood 05/07/2024 4:14 AM RUG SIZER 05/07/2024 4:28 AM RUG SIZER Duyen Malloy MD LAB BLOOD ORDERABLES Final Result Performing Organization Address City/[facility]/ZIP Co de Phone Number [facility] Department [place] [address] * Magnesium (05/07/2024 4:14 AM RUG SIZER) [facility] Magnesium 2.3 1.4 - 2.5 mg/dL Blood 05/07/2024 4:14 AM RUG SIZER 05/07/2024 4:28 AM RUG SIZER Duyen Malloy MD LAB BLOOD ORDERABLES Final Result Performing Organization Address [facility] de Phone Number [facility] Department [place] [address] * (ABNORMAL) Basic metabolic panel (05/07/2024 4:14 AM RUG SIZER) [facility] Sodium 135 135 - 145 mmol/L Potassium, pl 3.6 3.3 - 4.9 mmol/L [facility] Chloride 102 97 - 110 mmol/L [facility] CO2 29 22 - 32 mmol/L [facility] Anion gap 4 2 - 15 mmol/L [facility] BUN 13 6 - 25 mg/dL [facility] Creatinine 3.03(H) 0.60 - 1.10 mg/dL [facility] Glucose 87 70 - 199 mg/dL [facility] Comment: Interpretive Data Fasting glucose >/= 126 mg/dl is diagnostic for diabetes. Fasting is defined as no caloric intake for at least 8 hours. Fasting glucose between 100 mg/dl to 125 mg/dl is diagnostic of prediabetes. In a patient with classic symptoms of hyperglycemia or hyperglycemic crisis, a random glucose >/= 200 mg/dl is diagnostic for diabetes. In the absence of unequivocal hyperglycemia, results should be confirmed by repeat testing. The classification and Diagnosis of Diabetes Diabetes Care 2021; 46: S19-S40. Current interpretive data was last revised 2022. Calcium 8.6 8.5 - 10.3 mg/dL [facility] Blood 05/07/2024 4:14 AM RUG SIZER 05/07/2024 4:28 AM RUG SIZER Duyen Malloy MD LAB BLOOD ORDERABLES Final Result Performing Organization Address City/[facility] Co de Phone Number [facility] [place] [address] * POCT glucose (05/06/2024 7:53 PM RUG SIZER) Glucose, POC 175 70 - 199 mg/dL Blood 05/06/2024 7:53 PM RUG SIZER 05/06/2024 7:53 PM RUG SIZER Duyen Malloy MD LAB POCT ORDERABLES - ARELY CE Final Result Performing Organization Address [facility] Co de Phone Number [facility] [place] [address] * POCT glucose (05/06/2024 5:55 PM RUG SIZER) Glucose, POC 136 70 - 199 mg/dL Blood 05/06/2024 5:55 PM RUG SIZER 05/06/2024 5:55 PM RUG SIZER Duyen Malloy MD LAB POCT ORDERABLES - ARELY CE Final Result Performing Organization Address [facility] Co de Phone Number [facility] [place] [address] * US Vein Duplex Lower Extremity Bilateral Complete (05/06/2024 2:05 PM RUG SIZER) Anatomical Region Laterality Modality Vascular Bilateral Ultrasound 05/06/2024 12:5 5 PM RUG SIZER Narrative 05/07/2024 9:00 AM RUG SIZER [facility] - Department of Vascular Surgery, Vascular Laboratory [address] [place] [id number] Lower Extremity Venous Ultrasound Report Patient Name: DARLINE CUI L : 1965 (59y 1m) Study Date: 05/06/2024 12:55:27 PM Gender: F Tech: [place] Location: [id number] Ref Provider: DUYEN MALLOY Quality: Adequate Order Provider: DUYEN MALLOY PROCEDURES: Vascular Report: Venous Duplex imaging was performed bilaterally in the lower extremities. The common femoral, femoral, popliteal, posterior tibial, peroneal veins were evaluated for patency, spontaneity and phasicity with Doppler, compression and augmentation maneuvers. Great saphenous vein proximal at the junction was evaluated with compression maneuvers. INDICATIONS: LE pain, numbness, c/f DVT - FINDINGS: Performing Elevator Installer: Kavitha Ho RVT. Bilateral: Venous Doppler signals in the bilateral lower extremity are within normal limits for spontaneity and phasicity and respond normally to augmentation maneuvers. No evidence of deep vein thrombus by duplex, proximal to the calf. CONCLUSIONS: 1. There is no evidence of acute deep vein thrombosis in the lower extremities bilaterally. Noninvasive venous studies cannot rule out isolated calf vein obstruction. HISTORY: Hyperkalemia - PREVIOUS STUDIES: No previous studies for comparison. DISCLAIMER: The study images and the final report will be retained in the patient chart by the Vascular Laboratory for the legally required time period. This chart constitutes the legal record of any testing performed. ATTESTATION: I have reviewed and interpreted the pertinent images and measurements of this study. I attest to the conclusions in the final report that is provided above. Electronically Signed By: Jourdan Szymanski MD FACS 05/07/2024 8:25:59 AM RUG SIZER Procedure Note Jourdan Szymanski MD - 05/07/2024 [facility] - Department of Vascular Surgery,Vascular Laboratory [address] [place] [address] Lower Extremity Venous Ultrasound Report Patient Name: DARLINE CUI L : 1965 (59y 1m) Study Date: 05/06/2024 12:55:27 PM Gender: F Tech: [place] Location: [id number] Ref Provider: DUYEN MALLOY Quality: Adequate Order Provider: DUYEN MALLOY PROCEDURES: Vascular Report: Venous Duplex imaging was performed bilaterally in the lower extremities.The common femoral, femoral, popliteal, posterior tibial, peroneal veins wereevaluated for patency, spontaneity and phasicity with Doppler, compression and augmentationmaneuvers. Great saphenous vein proximal at the junction was evaluated with compressionmaneuvers. INDICATIONS: LE pain, numbness, c/f DVT - FINDINGS: Performing Elevator Installer: Kavitha Ho RVT. Bilateral: Venous Doppler signals in the bilateral lower extremity are within normallimits for spontaneity and phasicity and respond normally to augmentation maneuvers.No evidence of deep vein thrombus by duplex, proximal to the calf. CONCLUSIONS: 1. There is no evidence of acute deep vein thrombosis in the lowerextremities bilaterally. Noninvasive venous studies cannot rule out isolated calf veinobstruction. HISTORY: Hyperkalemia - PREVIOUS STUDIES: No previous studies for comparison. DISCLAIMER: The study images and the final report will be retained in the patientchart by the Vascular Laboratory for the legally required time period. This chartconstitutes the legal record of any testing performed. ATTESTATION: I have reviewed and interpreted the pertinent images and measurements ofthis study. I attest to the conclusions in the final report that is provided above. Electronically Signed By: Jourdan Szymanski MD [facility] 05/07/2024 8:25:59 AM RUG SIZER us Duyen Malloy MD [facility] PROCEDURES Final Re sult * POCT glucose (05/06/2024 11:42 AM RUG SIZER) Glucose, POC 176 70 - 199 mg/dL Blood 05/06/2024 11:4 2 AM RUG SIZER 05/06/2024 11:42 AM RUG SIZER us Duyen Malloy MD LAB POCT ORDERABLES - ARELY CE Final Result [facility] Department of Laboratories [place], [place] [id number] * POCT glucose (05/06/2024 7:36 AM RUG SIZER) Glucose, POC 103 70 - 199 mg/dL Blood 05/06/2024 7:36 AM RUG SIZER 05/06/2024 7:36 AM RUG SIZER Duyen Malloy MD LAB POCT ORDERABLES - ARELY CE Final Result Performing Organization Address [facility] Co de Phone Number [facility] [place] [address] * (ABNORMAL) eGFR (05/06/2024 4:38 AM RUG SIZER) Pathologist [facility] eGFR 10(L) >=60 mL/min/1. 73 m2 Comment: Interpretive Data Reference Interval Normal >/= 90 mL/min/1.73m2 Mildly decreased* 60 - 89 mL/min/1.73m2 Mildly to moderately decreased 45 - 59 mL/min/1.73m2 Moderately to severely decreased 30 - 44 mL/min/1.73m2 Severely decreased 15 - 29 mL/min/1.73m2 Kidney Failure < 15 mL/min/1.73m2 *Relative to young adult level Estimated glomerular filtration rate is determined by the 2020 CKD-EPI equation recommended by the National Kidney Foundation (A Unifying Approach to GFR Estimation: Recommendations of the NKF-ASK Task Force on Reassessing the Inclusion of Race in Diagnosing Kidney Disease, JASN 2020). The CKD-EPI equation should not be used for patients with unstable renal function and has not been validated in children and those over 70. Current interpretive data was last reviewed 2021. Blood 05/06/2024 4:38 AM RUG SIZER 05/06/2024 4:55 AM RUG SIZER Duyen Malloy MD LAB BLOOD ORDERABLES Final Result Performing Organization Address City/[facility] Co de Phone Number [facility] [place] [address] * (ABNORMAL) Differential, auto (05/06/2024 4:38 AM RUG SIZER) Pathologist [facility] Neutrophil abs 13.1(H) 1.5 - 6.5 K/cumm Imm gran abs 0.2(H) 0.0 - 0.1 K/cumm [facility] Lymphocyte abs 1.8 0.8 - 3.3 K/cumm [facility] Monocyte abs 1.3(H) 0.2 - 0.8 K/cumm [facility] Eosinophil abs 0.4 0.0 - 0.5 K/cumm [facility] Basophil abs 0.1 0.0 - 0.1 K/cumm [facility] Neutrophil pct 77.5 % [facility] Comment: Interpretive Data Percent cell count reference ranges are not reported, since discordance with absolute values may lead to misinterpretation of CBC data. Current Interpretive Data was last revised on 2017. Imm gran pct 1.4 % [facility] Comment: Interpretive Data Percent cell count reference ranges are not reported, since discordance with absolute values may lead to misinterpretation of CBC data. Current Interpretive Data was last revised on 2017. Lymphocyte pct 10.8 % [facility] Comment: Interpretive Data Percent cell count reference ranges are not reported, since discordance with absolute values may lead to misinterpretation of CBC data. Current Interpretive Data was last revised on 2017. Monocyte pct 7.7 % [facility] Comment: Interpretive Data Percent cell count reference ranges are not reported, since discordance with absolute values may lead to misinterpretation of CBC data. Current Interpretive Data was last revised on 2017. Eosinophil pct 2.1 % [facility] Comment: Interpretive Data Percent cell count reference ranges are not reported, since discordance with absolute values may lead to misinterpretation of CBC data. Current Interpretive Data was last revised on 2017. Basophil pct 0.5 % [facility] Comment: Interpretive Data Percent cell count reference ranges are not reported, since discordance with absolute values may lead to misinterpretation of CBC data. Current Interpretive Data was last revised on 2017. Blood 05/06/2024 4:38 AM RUG SIZER 05/06/2024 4:55 AM RUG SIZER us Duyen Malloy MD LAB BLOOD ORDERABLES Final Result [facility] [place] [address] * (ABNORMAL) CBC with auto differential (05/06/2024 4:38 AM RUG SIZER) [facility] WBC 16.9(H) 3.8 - 9.9 K/cumm Hgb 7.9(L) 11.9 - 15.5 g/dL [facility] Hct 23.6(L) 35.6 - 45.5 % [facility] Plt 200 150 - 400 K/cumm [facility] MPV 10.0 9.1 - 12.3 fL [facility] RBC 2.63(L) 3.90 - 5.20 M/cumm [facility] MCV 89.7 81.3 - 96.4 fL [facility] MCH 30.0 27.1 - 33.3 pg [facility] MCHC 33.5 32.3 - 35.7 g/dL [facility] RDW CV 13.0 11.1 - 14.9 % [facility] RDW SD 42.7 35.7 - 48.1 fL [facility] NRBC abs 0.00 0.00 - 0.01 K/cumm [facility] Blood 05/06/2024 4:38 AM RUG SIZER 05/06/2024 4:55 AM RUG SIZER Duyen Malloy MD LAB BLOOD ORDERABLES Final Result Performing Organization Address City/[facility]/ZIP Co de Phone Number [facility] Department [place] [address] * (ABNORMAL) Phosphorus (05/06/2024 4:38 AM RUG SIZER) Pathologist [facility] Phosphorus, pl 4.7(H) 2.3 - 4.5 mg/dL Blood 05/06/2024 4:38 AM RUG SIZER 05/06/2024 4:55 AM RUG SIZER Duyen Malloy MD LAB BLOOD ORDERABLES Final Result Performing Organization Address City/[facility]/ZIP Co de Phone Number [facility] [place] [place] [address] * Magnesium (05/06/2024 4:38 AM RUG SIZER) Pathologist [facility] Magnesium 2.1 1.4 - 2.5 mg/dL Blood 05/06/2024 4:38 AM RUG SIZER 05/06/2024 4:55 AM RUG SIZER Duyen Malloy MD LAB BLOOD ORDERABLES Final Result [facility] Department [place] [address] * (ABNORMAL) Basic metabolic panel (05/06/2024 4:38 AM RUG SIZER) [facility] Sodium 134(L) 135 - 145 mmol/L Potassium, pl 3.9 3.3 - 4.9 mmol/L [facility] Chloride 96(L) 97 - 110 mmol/L [facility] CO2 25 22 - 32 mmol/L [facility] Anion gap 13 2 - 15 mmol/L [facility] BUN 17 6 - 25 mg/dL [facility] Creatinine 4.77(H) 0.60 - 1.10 mg/dL [facility] Glucose 138 70 - 199 mg/dL [facility] Comment: Interpretive Data Fasting glucose >/= 126 mg/dl is diagnostic for diabetes. Fasting is defined as no caloric intake for at least 8 hours. Fasting glucose between 100 mg/dl to 125 mg/dl is diagnostic of prediabetes. In a patient with classic symptoms of hyperglycemia or hyperglycemic crisis, a random glucose >/= 200 mg/dl is diagnostic for diabetes. In the absence of unequivocal hyperglycemia, results should be confirmed by repeat testing. The classification and Diagnosis of Diabetes Diabetes Care 2021; 46: S19-S40. Current interpretive data was last revised 2022. Calcium 9.1 8.5 - 10.3 mg/dL [facility] Blood 05/06/2024 4:38 AM RUG SIZER 05/06/2024 4:55 AM RUG SIZER Duyen Malloy MD LAB BLOOD ORDERABLES Final Result Performing Organization Address [facility]/ZIP Co de Phone Number [facility] [place] [address] * POCT glucose (05/05/2024 8:39 PM RUG SIZER) Glucose, POC 192 70 - 199 mg/dL Blood 05/05/2024 8:39 PM RUG SIZER 05/05/2024 8:39 PM RUG SIZER Duyen Malloy MD LAB POCT ORDERABLES - ARELY CE Final Result Performing Organization Address City/[facility]/ZIP Co de Phone Number [facility] [place] [address] * POCT glucose (05/05/2024 4:48 PM RUG SIZER) Glucose, POC 123 70 - 199 mg/dL Comment:Glu2: RN/ Notified Glucose comment 1 Glu2: RN/MD Notified [facility] Blood 05/05/2024 4:48 PM RUG SIZER 05/05/2024 4:48 PM RUG SIZER Duyen Malloy MD LAB POCT ORDERABLES - ARELY CE Final Result Performing Organization Address [facility] Co de Phone Number [facility] [place] [place] [address] * POCT glucose (05/05/2024 12:27 PM RUG SIZER) Glucose, POC 161 70 - 199 mg/dL Comment:Glu2: RN/MD Notified Glucose comment 1 Glu2: RN/MD Notified [facility] Blood 05/05/2024 12:2 7 PM RUG SIZER 05/05/2024 12:27 PM RUG SIZER Duyen Malloy MD LAB POCT ORDERABLES - ARELY CE Final Result Performing Organization Address City/[facility]/ZIP Co de Phone Number [facility] [place] [address] * POCT glucose (05/05/2024 8:14 AM RUG SIZER) Glucose, POC 100 70 - 199 mg/dL Comment:Glu2: RN/MD Notified Glucose comment 1 Glu2: RN/MD Notified [facility] Blood 05/05/2024 8:14 AM RUG SIZER 05/05/2024 8:14 AM RUG SIZER Duyen Malloy MD LAB POCT ORDERABLES - ARELY CE Final Result Performing Organization Address City/[facility]/ZIP Co de Phone Number [facility] [employer] [place] [address] * (ABNORMAL) eGFR (05/05/2024 6:13 AM RUG SIZER) Pathologist [facility] eGFR 16(L) >=60 mL/min/1. 73 m2 Comment: Interpretive Data Reference Interval Normal >/= 90 mL/min/1.73m2 Mildly decreased* 60 - 89 mL/min/1.73m2 Mildly to moderately decreased 45 - 59 mL/min/1.73m2 Moderately to severely decreased 30 - 44 mL/min/1.73m2 Severely decreased 15 - 29 mL/min/1.73m2 Kidney Failure < 15 mL/min/1.73m2 *Relative to young adult level Estimated glomerular filtration rate is determined by the 2020 CKD-EPI equation recommended by the National Kidney Foundation (A Unifying Approach to GFR Estimation: Recommendations of the NKF-ASK Task Force on Reassessing the Inclusion of Race in Diagnosing Kidney Disease, JASN 2020). The CKD-EPI equation should not be used for patients with unstable renal function and has not been validated in children and those over 70. Current interpretive data was last reviewed 2021. Blood 05/05/2024 6:13 AM RUG SIZER 05/05/2024 6:30 AM RUG SIZER Duyen Malloy MD LAB BLOOD ORDERABLES Final Result Performing Organization Address City/[facility]/ZIP Co de Phone Number [facility] [place] [place] [address] * (ABNORMAL) Differential, auto (05/05/2024 6:13 AM RUG SIZER) Neutrophil abs 12.2(H) 1.5 - 6.5 K/cumm Imm gran abs 0.2(H) 0.0 - 0.1 K/cumm [facility] Lymphocyte abs 2.3 0.8 - 3.3 K/cumm [facility] Monocyte abs 1.6(H) 0.2 - 0.8 K/cumm [facility] Eosinophil abs 0.2 0.0 - 0.5 K/cumm [facility] Basophil abs 0.1 0.0 - 0.1 K/cumm [facility] Neutrophil pct 73.8 % [facility] Comment: Interpretive Data Percent cell count reference ranges are not reported, since discordance with absolute values may lead to misinterpretation of CBC data. Current Interpretive Data was last revised on 2017. Imm gran pct 1.3 % [facility] Comment: Interpretive Data Percent cell count reference ranges are not reported, since discordance with absolute values may lead to misinterpretation of CBC data. Current Interpretive Data was last revised on 2017. Lymphocyte pct 13.8 % [facility] Comment: Interpretive Data Percent cell count reference ranges are not reported, since discordance with absolute values may lead to misinterpretation of CBC data. Current Interpretive Data was last revised on 2017. Monocyte pct 9.5 % [facility] Comment: Interpretive Data Percent cell count reference ranges are not reported, since discordance with absolute values may lead to misinterpretation of CBC data. Current Interpretive Data was last revised on 2017. Eosinophil pct 1.2 % [facility] Comment: Interpretive Data Percent cell count reference ranges are not reported, since discordance with absolute values may lead to misinterpretation of CBC data. Current Interpretive Data was last revised on 2017. Basophil pct 0.4 % [facility] Comment: Interpretive Data Percent cell count reference ranges are not reported, since discordance with absolute values may lead to misinterpretation of CBC data. Current Interpretive Data was last revised on 2017. Blood 05/05/2024 6:13 AM RUG SIZER 05/05/2024 6:30 AM RUG SIZER Duyen Malloy MD LAB BLOOD ORDERABLES Final Result Performing Organization Address City/[facility]/ZIP Co de Phone Number [facility] Department [place] [place] [address] * (ABNORMAL) CBC with auto differential (05/05/2024 6:13 AM RUG SIZER) [facility] WBC 16.5(H) 3.8 - 9.9 K/cumm Hgb 7.6(L) 11.9 - 15.5 g/dL [facility] Hct 22.9(L) 35.6 - 45.5 % [facility] Plt 212 150 - 400 K/cumm [facility] MPV 9.5 9.1 - 12.3 fL [facility] RBC 2.58(L) 3.90 - 5.20 M/cumm [facility] MCV 88.8 81.3 - 96.4 fL [facility] MCH 29.5 27.1 - 33.3 pg [facility] MCHC 33.2 32.3 - 35.7 g/dL [facility] RDW CV 13.2 11.1 - 14.9 % [facility] RDW SD 43.1 35.7 - 48.1 fL [facility] NRBC abs 0.00 0.00 - 0.01 K/cumm [facility] Blood 05/05/2024 6:13 AM RUG SIZER 05/05/2024 6:30 AM RUG SIZER Duyen Malloy MD LAB BLOOD ORDERABLES Final Result [facility] [place] [address] * Hepatitis B core antibody, total Blood (05/05/2024 6:13 AM RUG SIZER) [facility] Hep B core IgG/IgM Nonreactive Nonreactive Blood 05/05/2024 6:13 AM RUG SIZER 05/05/2024 6:30 AM RUG SIZER Duyen Malloy MD LAB MICROBIOLOGY - GENERAL ORDERABLES Final Result Performing Organization Address City/[facility] Co de Phone Number [facility] [place] [address] * Phosphorus (05/05/2024 6:13 AM RUG SIZER) Pathologist [facility] Phosphorus, pl 4.1 2.3 - 4.5 mg/dL Comment:Reviewed Blood 05/05/2024 6:13 AM RUG SIZER 05/05/2024 6:30 AM RUG SIZER Duyen Malloy MD LAB BLOOD ORDERABLES Final Result Performing Organization Address [facility] Co de Phone Number [facility] [place] [address] * Magnesium (05/05/2024 6:13 AM RUG SIZER) [facility] Magnesium 2.1 1.4 - 2.5 mg/dL Blood 05/05/2024 6:13 AM RUG SIZER 05/05/2024 6:30 AM RUG SIZER Duyen Malloy MD LAB BLOOD ORDERABLES Final Result Performing Organization Address [facility] de Phone Number [facility] [place] [address] * (ABNORMAL) Basic metabolic panel (05/05/2024 6:13 AM RUG SIZER) Pathologist [facility] Sodium 137 135 - 145 mmol/L Potassium, pl 3.0(L) 3.3 - 4.9 mmol/L [facility] Chloride 100 97 - 110 mmol/L [facility] CO2 28 22 - 32 mmol/L [facility] Anion gap 9 2 - 15 mmol/L [facility] BUN 10 6 - 25 mg/dL [facility] Creatinine 3.31(H) 0.60 - 1.10 mg/dL [facility] Glucose 105 70 - 199 mg/dL [facility] Comment: Interpretive Data Fasting glucose >/= 126 mg/dl is diagnostic for diabetes. Fasting is defined as no caloric intake for at least 8 hours. Fasting glucose between 100 mg/dl to 125 mg/dl is diagnostic of prediabetes. In a patient with classic symptoms of hyperglycemia or hyperglycemic crisis, a random glucose >/= 200 mg/dl is diagnostic for diabetes. In the absence of unequivocal hyperglycemia, results should be confirmed by repeat testing. The classification and Diagnosis of Diabetes Diabetes Care 2021; 46: S19-S40. Current interpretive data was last revised 2022. Calcium 8.8 8.5 - 10.3 mg/dL [facility] Blood 05/05/2024 6:13 AM RUG SIZER 05/05/2024 6:30 AM RUG SIZER Duyen Malloy MD LAB BLOOD ORDERABLES Final Result Performing Organization Address [facility] Co de Phone Number [facility] Department [place] [address] * POCT glucose (05/04/2024 11:33 PM RUG SIZER) [facility] Glucose, POC 130 70 - 199 mg/dL Blood 05/04/2024 11:3 3 PM RUG SIZER 05/04/2024 11:33 PM RUG SIZER Duyen Malloy MD LAB POCT ORDERABLES - ARELY CE Final Result Performing Organization Address [facility] de Phone Number [facility] Department [place] [address] * Respiratory pathogen panel Nasopharyngeal (05/04/2024 9:54 PM RUG SIZER) [facility] Influenza A RNA Not Detected Not Detected Influenza B RNA Not Detected Not Detected [facility] RSV RNA Not Detected Not Detected [facility] COVID-19 RNA Not Detected Not Detected [facility] Coronavirus 229E RNA Not Detected Not Detected [facility] Coronavirus HKU1 RNA Not Detected Not Detected [facility] Coronavirus NL63 RNA Not Detected Not Detected [facility] Coronavirus OC43 RNA Not Detected Not Detected [facility] Adenovirus DNA Not Detected Not Detected [facility] Metapneumovirus RNA Not Detected Not Detected [facility] Rhinovirus/Enterov irus RNA Not Detected Not Detected [facility] Parainfluenza 1 RNA Not Detected Not Detected [facility] Parainfluenza 2 RNA Not Detected Not Detected [facility] Parainfluenza 3 RNA Not Detected Not Detected [facility] Parainfluenza 4 RNA Not Detected Not Detected [facility] B. pertussis DNA Not Detected Not Detected [facility] B. parapertussis DNA Not Detected Not Detected [facility] C. pneumoniae DNA Not Detected Not Detected [facility] M. pneumoniae DNA Not Detected Not Detected [facility] Nasopharyngeal 05/04/2024 9: 54 PM RUG SIZER 05/04/2024 10:38 PM RUG SIZER Narrative [facility] - 05/04/2024 11:36 PM RUG SIZER Is the Patient experiencing symptoms consistent with COVID?->Unknown Surveillance testing for transplant patient?->No Interpretive Data The [employer] FilmArray Respiratory Panel (RP2.1) assay is a multiplexed real-time PCR based nucleic acid test capable of simultaneous qualitative detection and identification of multiple respiratory viral and bacterial nucleic acids, including SARS Coronavirus 2 (the causative agent of COVID-19). The following bacteria, viruses and virus subtypes can be identified using the FilmArray RP2.1 assay: Bordetella pertussis, Bordetella parapertussis, Chlamydia pneumoniae, Mycoplasma pneumoniae, Adenovirus, SARS Coronavirus 2, seasonal coronaviruses (Coronavirus HKU1, Coronavirus NL63, Coronavirus 229E, and Coronavirus OC43), Influenza A, Influenza A subtype H1, Influenza A subtype H3, Influenza A subtype 2009 H1, Influenza B, Metapneumovirus, Parainfluenza 1, Parainfluenza 2, Parainfluenza 3, Parainfluenza 4, RSV, Rhinovirus/Enterovirus. Due to the genetic similarity between human Rhinovirus and Enterovirus, the FilmArray RP2.1 assay cannot reliably differentiate them. Coronavirus OC43 may cross-react with some isolates of Coronavirus HKU1. A dual positive result may be due to cross-reactivity or may indicate a co- infection. The detection and identification of specific viral and bacterial nucleic acids from individuals exhibiting signs and symptoms of a respiratory infection aids in the diagnosis of respiratory infection if used in conjunction with other clinical and epidemiological information. The results of this test should not be used as the sole basis for diagnosis, treatment, or other management decisions. Negative results in the setting of a respiratory illness may be due to infection with pathogens that are not detected by this test. Positive results do not rule out infection/co-infection with other organisms. The agent(s) detected by the FilmArray RP2.1 may not be the definite cause of disease. Additional testing (lab, imaging, etc.) may be necessary when evaluating a patient with possible respiratory tract infection. The FilmArray RP2.1 assay has FDA clearance for testing of BANK ADVISOR swabs. The performance of additional specimen types has been assessed by the performing laboratory. The performance characteristics of this assay have been determined by [facility] Molecular Infectious Disease Laboratory. Current interpretive data was last revised on 21. Duyen Malloy MD LAB MICROBIOLOGY - GENERAL ORDERABLES Final Result [facility] [place] [address] * Blood culture Blood (05/04/2024 9:54 PM RUG SIZER) Report Final Report: No growth Blood 05/04/2024 9:54 PM RUG SIZER 05/04/2024 10:35 PM RUG SIZER Narrative [facility] - 05/09/2024 7:01 AM RUG SIZER Collection->New stick (time of line placement) 1. Blood cultures are incubated for 4 days on a continuously monitored blood culture system. The first report of a negative culture is issued within 24 hours of receipt of the specimen in the laboratory. 2. Positive culture results are reported as soon as they are detected. 3. The most important factor for detection of microbes in the setting of bloodstream infection is the volume of blood submitted for culture. Failure to collect an optimal blood volume can result in false negative blood cultures. 4. For pediatric patients, the recommended blood volume to collect follows a weight based strategy. See the electronic test catalog for collection instructions. 5. For positive blood cultures, a rapid molecular test may be performed for organism identification using the [employer] blood culture identification panel for gram positive (BCID-GP) and gram negative (BCID-GN) organisms. This nucleic acid amplification test detects microbial DNA in positive blood culture broth. This assay has been cleared by the [place] Food and Drug Administration and its performance characteristics have been verified by the [facility] Microbiology Laboratory. For questions about this culture, contact the Microbiology Laboratory at [phone]. Interpretive data was last revised on 24. us Duyen Malloy MD LAB MICROBIOLOGY - GENERAL ORDERABLES Final Result [facility] [place] [address] * Blood culture Blood (05/04/2024 9:54 PM RUG SIZER) Report Final Report: No growth Blood 05/04/2024 9:54 PM RUG SIZER 05/04/2024 10:34 PM RUG SIZER Narrative [facility] - 05/09/2024 7:01 AM RUG SIZER Collection->New stick (time of line placement) 1. Blood cultures are incubated for 4 days on a continuously monitored blood culture system. The first report of a negative culture is issued within 24 hours of receipt of the specimen in the laboratory. 2. Positive culture results are reported as soon as they are detected. 3. The most important factor for detection of microbes in the setting of bloodstream infection is the volume of blood submitted for culture. Failure to collect an optimal blood volume can result in false negative blood cultures. 4. For pediatric patients, the recommended blood volume to collect follows a weight based strategy. See the electronic test catalog for collection instructions. 5. For positive blood cultures, a rapid molecular test may be performed for organism identification using the [employer] e[employer]lex blood culture identification panel for gram positive (BCID-GP) and gram negative (BCID-GN) organisms. This nucleic acid amplification test detects microbial DNA in positive blood culture broth. This assay has been cleared by the [place] Food and Drug Administration and its performance characteristics have been verified by the [facility] Microbiology Laboratory. For questions about this culture, contact the Microbiology Laboratory at [phone]. Interpretive data was last revised on 24. Duyen Malloy MD LAB MICROBIOLOGY - GENERAL ORDERABLES Final Result [facility] [place] [address] * XR Chest 1 View (05/04/2024 9:16 PM RUG SIZER) Anatomical Region Laterality Modality Body, Chest N/A Computed Radiogr aphy 05/05/2024 8:57 AM RUG SIZER Impressions 05/05/2024 8:57 AM RUG SIZER Comparison is made to chest radiograph dated 05/03/2024. Right internal jugular venous approach catheter tip overlies the superior vena cava. No right lung consolidation. Minimal left basilar atelectasis. No pleural effusion or pneumothorax. Normal cardiomediastinal silhouette. Electronically signed by: Maura Rosas M.D. Narrative 05/05/2024 8:57 AM RUG SIZER EXAMINATION: 1 view chest radiograph Procedure Note Maura Rosas MD - 05/05/2024 EXAMINATION: 1 view chest radiograph IMPRESSION: Comparison is made to chest radiograph dated 05/03/2024. Right internal jugular venous approach catheter tip overlies the superior vena cava. No right lung consolidation. Minimal left basilar atelectasis. No pleural effusion or pneumothorax. Normal cardiomediastinal silhouette. Electronically signed by: Maura Rosas M.D. Duyen Malloy MD IMG XR PROCEDURES Final Re sult * POCT glucose (05/04/2024 8:28 PM RUG SIZER) [facility] Glucose, POC 197 70 - 199 mg/dL Blood 05/04/2024 8:28 PM RUG SIZER 05/04/2024 8:28 PM RUG SIZER Duyen Malloy MD LAB POCT ORDERABLES - ARELY CE Final Result Performing Organization Address [facility] de Phone Number [facility] [place] [address] * POCT glucose (05/04/2024 4:40 PM RUG SIZER) Glucose, POC 80 70 - 199 mg/dL Comment:Glu2: RN/MD Notified Glucose comment 1 Glu2: RN/MD Notified [facility] Blood 05/04/2024 4:40 PM RUG SIZER 05/04/2024 4:40 PM RUG SIZER Duyen Malloy MD LAB POCT ORDERABLES - ARELY CE Final Result Performing Organization Address [facility] de Phone Number [facility] [place] [address] * POCT glucose (05/04/2024 2:39 PM RUG SIZER) Glucose, POC 158 70 - 199 mg/dL Comment:Glu2: RN/ Notified Glucose comment 1 Glu2: RN/ Notified [facility] Blood 05/04/2024 2:39 PM RUG SIZER 05/04/2024 2:39 PM RUG SIZER Duyen Malloy MD LAB POCT ORDERABLES - ARELY CE Final Result Performing Organization Address [facility] de Phone Number [facility] [place] [address] * POCT glucose (05/04/2024 12:25 PM RUG SIZER) Glucose, POC 71 70 - 199 mg/dL Comment:Glu2: RN/ Notified Glucose comment 1 Glu2: RN/MD Notified [facility] Blood 05/04/2024 12:2 5 PM RUG SIZER 05/04/2024 12:25 PM RUG SIZER Duyen Malloy MD LAB POCT ORDERABLES - ARELY CE Final Result Performing Organization Address [facility] Co de Phone Number [facility] [place] [address] * (ABNORMAL) eGFR (05/04/2024 10:45 AM RUG SIZER) eGFR 8(L) >=60 mL/min/1. 73 m2 Comment: Interpretive Data Reference Interval Normal >/= 90 mL/min/1.73m2 Mildly decreased* 60 - 89 mL/min/1.73m2 Mildly to moderately decreased 45 - 59 mL/min/1.73m2 Moderately to severely decreased 30 - 44 mL/min/1.73m2 Severely decreased 15 - 29 mL/min/1.73m2 Kidney Failure < 15 mL/min/1.73m2 *Relative to young adult level Estimated glomerular filtration rate is determined by the 2020 CKD-EPI equation recommended by the National Kidney Foundation (A Unifying Approach to GFR Estimation: Recommendations of the NKF-ASK Task Force on Reassessing the Inclusion of Race in Diagnosing Kidney Disease, JASN 2020). The CKD-EPI equation should not be used for patients with unstable renal function and has not been validated in children and those over 70. Current interpretive data was last reviewed 2021. Blood 05/04/2024 10:4 5 AM RUG SIZER 05/04/2024 10:56 AM RUG SIZER us Duyen Malloy MD LAB BLOOD ORDERABLES Final Result Performing Organization Address [facility] Co de Phone Number [facility] [place] [address] * (ABNORMAL) Differential, auto (05/04/2024 10:45 AM RUG SIZER) Neutrophil abs 11.5(H) 1.5 - 6.5 K/cumm Imm gran abs 0.3(H) 0.0 - 0.1 K/cumm [facility] Lymphocyte abs 1.5 0.8 - 3.3 K/cumm [facility] Monocyte abs 1.4(H) 0.2 - 0.8 K/cumm [facility] Eosinophil abs 0.1 0.0 - 0.5 K/cumm [facility] Basophil abs 0.1 0.0 - 0.1 K/cumm [facility] Neutrophil pct 77.5 % [facility] Comment: Interpretive Data Percent cell count reference ranges are not reported, since discordance with absolute values may lead to misinterpretation of CBC data. Current Interpretive Data was last revised on 2017. Imm gran pct 2.3 % [facility] Comment: Interpretive Data Percent cell count reference ranges are not reported, since discordance with absolute values may lead to misinterpretation of CBC data. Current Interpretive Data was last revised on 2017. Lymphocyte pct 10.1 % [facility] Comment: Interpretive Data Percent cell count reference ranges are not reported, since discordance with absolute values may lead to misinterpretation of CBC data. Current Interpretive Data was last revised on 2017. Monocyte pct 9.2 % [facility] Comment: Interpretive Data Percent cell count reference ranges are not reported, since discordance with absolute values may lead to misinterpretation of CBC data. Current Interpretive Data was last revised on 2017. Eosinophil pct 0.6 % [facility] Comment: Interpretive Data Percent cell count reference ranges are not reported, since discordance with absolute values may lead to misinterpretation of CBC data. Current Interpretive Data was last revised on 2017. Basophil pct 0.3 % [facility] Comment: Interpretive Data Percent cell count reference ranges are not reported, since discordance with absolute values may lead to misinterpretation of CBC data. Current Interpretive Data was last revised on 2017. Blood 05/04/2024 10:4 5 AM RUG SIZER 05/04/2024 10:56 AM RUG SIZER us Duyen Malloy MD LAB BLOOD ORDERABLES Final Result [facility] Department [place] [address] * (ABNORMAL) CBC with auto differential (05/04/2024 10:45 AM RUG SIZER) WBC 14.8(H) 3.8 - 9.9 K/cumm Hgb 8.0(L) 11.9 - 15.5 g/dL [facility] Hct 23.6(L) 35.6 - 45.5 % [facility] Plt 234 150 - 400 K/cumm [facility] MPV 9.4 9.1 - 12.3 fL [facility] RBC 2.66(L) 3.90 - 5.20 M/cumm [facility] MCV 88.7 81.3 - 96.4 fL [facility] MCH 30.1 27.1 - 33.3 pg [facility] MCHC 33.9 32.3 - 35.7 g/dL [facility] RDW CV 13.5 11.1 - 14.9 % [facility] RDW SD 43.8 35.7 - 48.1 fL [facility] NRBC abs 0.00 0.00 - 0.01 K/cumm [facility] Blood 05/04/2024 10:4 5 AM RUG SIZER 05/04/2024 10:56 AM RUG SIZER Duyen Malloy MD LAB BLOOD ORDERABLES Final Result [facility] Department [place] [place] [address] * (ABNORMAL) Phosphorus (05/04/2024 10:45 AM RUG SIZER) [facility] Phosphorus, pl 6.3(H) 2.3 - 4.5 mg/dL Blood 05/04/2024 10:4 5 AM RUG SIZER 05/04/2024 10:56 AM RUG SIZER Rani Corley MD LAB BLOOD ORDERABLES Final Re sult [facility] [place] [address] * Magnesium (05/04/2024 10:45 AM RUG SIZER) [facility] Magnesium 2.0 1.4 - 2.5 mg/dL Blood 05/04/2024 10:4 5 AM RUG SIZER 05/04/2024 10:56 AM RUG SIZER us Rani Corley MD LAB BLOOD ORDERABLES Final Re sult [facility] Department [place] [address] * (ABNORMAL) Basic metabolic panel (05/04/2024 10:45 AM RUG SIZER) [facility] Sodium 136 135 - 145 mmol/L Potassium, pl 3.0(L) 3.3 - 4.9 mmol/L [facility] Chloride 99 97 - 110 mmol/L [facility] CO2 24 22 - 32 mmol/L [facility] Anion gap 13 2 - 15 mmol/L [facility] BUN 24 6 - 25 mg/dL [facility] Creatinine 5.60(H) 0.60 - 1.10 mg/dL [facility] Glucose 75 70 - 199 mg/dL [facility] Comment: Interpretive Data Fasting glucose >/= 126 mg/dl is diagnostic for diabetes. Fasting is defined as no caloric intake for at least 8 hours. Fasting glucose between 100 mg/dl to 125 mg/dl is diagnostic of prediabetes. In a patient with classic symptoms of hyperglycemia or hyperglycemic crisis, a random glucose >/= 200 mg/dl is diagnostic for diabetes. In the absence of unequivocal hyperglycemia, results should be confirmed by repeat testing. The classification and Diagnosis of Diabetes Diabetes Care 2021; 46: S19-S40. Current interpretive data was last revised 2022. Calcium 9.0 8.5 - 10.3 mg/dL [facility] Blood 05/04/2024 10:4 5 AM RUG SIZER 05/04/2024 10:56 AM RUG SIZER us Rani Corley MD LAB BLOOD ORDERABLES Final Re sult [facility] Department [place] [address] * POCT glucose (05/04/2024 8:18 AM RUG SIZER) [facility] Glucose, POC 101 70 - 199 mg/dL Comment:Glu2: RN/MD Notified Glucose comment 1 Glu2: RN/MD Notified [facility] Blood 05/04/2024 8:18 AM RUG SIZER 05/04/2024 8:18 AM RUG SIZER us Duyen Malloy MD LAB POCT ORDERABLES - ARELY CE Final Result [facility] [place] [address] * (ABNORMAL) eGFR (05/03/2024 11:05 PM RUG SIZER) [facility] eGFR 10(L) >=60 mL/min/1. 73 m2 Comment: Interpretive Data Reference Interval Normal >/= 90 mL/min/1.73m2 Mildly decreased* 60 - 89 mL/min/1.73m2 Mildly to moderately decreased 45 - 59 mL/min/1.73m2 Moderately to severely decreased 30 - 44 mL/min/1.73m2 Severely decreased 15 - 29 mL/min/1.73m2 Kidney Failure < 15 mL/min/1.73m2 *Relative to young adult level Estimated glomerular filtration rate is determined by the 2020 CKD-EPI equation recommended by the National Kidney Foundation (A Unifying Approach to GFR Estimation: Recommendations of the NKF-ASK Task Force on Reassessing the Inclusion of Race in Diagnosing Kidney Disease, JASN 2020). The CKD-EPI equation should not be used for patients with unstable renal function and has not been validated in children and those over 70. Current interpretive data was last reviewed 2021. Blood 05/03/2024 11:0 5 PM RUG SIZER 05/03/2024 11:43 PM RUG SIZER us Rani Corley MD LAB BLOOD ORDERABLES Final Re sult [facility] [place] [address] * (ABNORMAL) Phosphorus (05/03/2024 11:05 PM RUG SIZER) [facility] Phosphorus, pl 4.9(H) 2.3 - 4.5 mg/dL Blood 05/03/2024 11:0 5 PM RUG SIZER 05/03/2024 11:43 PM RUG SIZER Rani Corley MD LAB BLOOD ORDERABLES Final Re sult Performing Organization Address [facility] Co de Phone Number [facility] [place] [address] * Magnesium (05/03/2024 11:05 PM RUG SIZER) [facility] Magnesium 1.9 1.4 - 2.5 mg/dL Blood 05/03/2024 11:0 5 PM RUG SIZER 05/03/2024 11:43 PM RUG SIZER Rani Corley MD LAB BLOOD ORDERABLES Final Re sult Performing Organization Address [facility] Co de Phone Number [facility] [place] [address] * (ABNORMAL) Basic metabolic panel (05/03/2024 11:05 PM RUG SIZER) [facility] Sodium 137 135 - 145 mmol/L Potassium, pl 3.0(L) 3.3 - 4.9 mmol/L [facility] Chloride 98 97 - 110 mmol/L [facility] CO2 23 22 - 32 mmol/L [facility] Anion gap 16(H) 2 - 15 mmol/L [facility] BUN 24 6 - 25 mg/dL [facility] Creatinine 4.64(H) 0.60 - 1.10 mg/dL [facility] Glucose 107 70 - 199 mg/dL [facility] Comment: Interpretive Data Fasting glucose >/= 126 mg/dl is diagnostic for diabetes. Fasting is defined as no caloric intake for at least 8 hours. Fasting glucose between 100 mg/dl to 125 mg/dl is diagnostic of prediabetes. In a patient with classic symptoms of hyperglycemia or hyperglycemic crisis, a random glucose >/= 200 mg/dl is diagnostic for diabetes. In the absence of unequivocal hyperglycemia, results should be confirmed by repeat testing. The classification and Diagnosis of Diabetes Diabetes Care 2021; 46: S19-S40. Current interpretive data was last revised 2022. Calcium 8.5 8.5 - 10.3 mg/dL [facility] Blood 05/03/2024 11:0 5 PM RUG SIZER 05/03/2024 11:43 PM RUG SIZER us Rani Corley MD LAB BLOOD ORDERABLES Final Re sult Performing Organization Address [facility] de Phone Number [facility] [place] [place] [address] * POCT glucose (05/03/2024 8:27 PM RUG SIZER) [facility] Glucose, POC 84 70 - 199 mg/dL Blood 05/03/2024 8:27 PM RUG SIZER 05/03/2024 8:27 PM RUG SIZER us Rani Corley MD LAB POCT ORDERABLES - DEVICE Final Result Performing Organization Address [facility] Co de Phone Number [facility] Department [place] [address] * Transfuse RBC (05/03/2024 5:40 PM RUG SIZER) Blood us Rani Corley MD BLOOD TRANSFUSION ORDERABLES Edited Result - Final Performing Organization Address [facility] Co de Phone Number [facility] [place] [address] * (ABNORMAL) Hemoglobin and hematocrit (05/03/2024 5:05 PM RUG SIZER) Hgb 7.3(L) 11.9 - 15.5 g/dL Hct 21.7(L) 35.6 - 45.5 % [facility] Blood 05/03/2024 5:05 PM RUG SIZER 05/03/2024 5:24 PM RUG SIZER Rani Corley MD LAB BLOOD ORDERABLES Final Re sult Performing Organization Address [facility] Co de Phone Number [facility] [employer] [place] [address] * (ABNORMAL) eGFR (05/03/2024 4:13 PM RUG SIZER) [facility] eGFR 7(L) >=60 mL/min/1. 73 m2 Comment: Interpretive Data Reference Interval Normal >/= 90 mL/min/1.73m2 Mildly decreased* 60 - 89 mL/min/1.73m2 Mildly to moderately decreased 45 - 59 mL/min/1.73m2 Moderately to severely decreased 30 - 44 mL/min/1.73m2 Severely decreased 15 - 29 mL/min/1.73m2 Kidney Failure < 15 mL/min/1.73m2 *Relative to young adult level Estimated glomerular filtration rate is determined by the 2020 CKD-EPI equation recommended by the National Kidney Foundation (A Unifying Approach to GFR Estimation: Recommendations of the NKF-ASK Task Force on Reassessing the Inclusion of Race in Diagnosing Kidney Disease, JASN 2020). The CKD-EPI equation should not be used for patients with unstable renal function and has not been validated in children and those over 70. Current interpretive data was last reviewed 2021. Blood 05/03/2024 4:13 PM RUG SIZER 05/03/2024 4:23 PM RUG SIZER us Rani Corley MD LAB BLOOD ORDERABLES Final Re sult Performing Organization Address City/[facility]/ZIP Co de Phone Number [facility] Department [place] [address] * (ABNORMAL) Phosphorus (05/03/2024 4:13 PM RUG SIZER) [facility] Phosphorus, pl 6.9(H) 2.3 - 4.5 mg/dL Blood 05/03/2024 4:13 PM RUG SIZER 05/03/2024 4:23 PM RUG SIZER Rani Corley MD LAB BLOOD ORDERABLES Final Re sult Performing Organization Address [facility] Co de Phone Number [facility] Department [place] [address] * Magnesium (05/03/2024 4:13 PM RUG SIZER) [facility] Magnesium 1.9 1.4 - 2.5 mg/dL Blood 05/03/2024 4:13 PM RUG SIZER 05/03/2024 4:23 PM RUG SIZER Rani Corley MD LAB BLOOD ORDERABLES Final Re sult Performing Organization Address [facility] de Phone Number [facility] [place] [address] * (ABNORMAL) Basic metabolic panel (05/03/2024 4:13 PM RUG SIZER) [facility] Sodium 134(L) 135 - 145 mmol/L Potassium, pl 3.6 3.3 - 4.9 mmol/L [facility] Chloride 93(L) 97 - 110 mmol/L [facility] CO2 21(L) 22 - 32 mmol/L [facility] Anion gap 20(H) 2 - 15 mmol/L [facility] BUN 35(H) 6 - 25 mg/dL [facility] Creatinine 6.61(H) 0.60 - 1.10 mg/dL [facility] Glucose 115 70 - 199 mg/dL [facility] Comment: Interpretive Data Fasting glucose >/= 126 mg/dl is diagnostic for diabetes. Fasting is defined as no caloric intake for at least 8 hours. Fasting glucose between 100 mg/dl to 125 mg/dl is diagnostic of prediabetes. In a patient with classic symptoms of hyperglycemia or hyperglycemic crisis, a random glucose >/= 200 mg/dl is diagnostic for diabetes. In the absence of unequivocal hyperglycemia, results should be confirmed by repeat testing. The classification and Diagnosis of Diabetes Diabetes Care 2021; 46: S19-S40. Current interpretive data was last revised 2022. Calcium 8.0(L) 8.5 - 10.3 mg/dL [facility] Blood 05/03/2024 4:13 PM RUG SIZER 05/03/2024 4:23 PM RUG SIZER Rani Corley MD LAB BLOOD ORDERABLES Final Re sult Performing Organization Address City/[facility]/ZIP Co de Phone Number [facility] Department [place] [address] * POCT glucose (05/03/2024 3:57 PM RUG SIZER) Pathologist [facility] Glucose, POC 158 70 - 199 mg/dL Blood 05/03/2024 3:57 PM RUG SIZER 05/03/2024 3:57 PM RUG SIZER Rani Corley MD LAB POCT ORDERABLES - DEVICE Final Result Performing Organization Address [facility]/ZIP Co de Phone Number [facility] Department [place] [address] * Prepare RBC: 1 Units (05/03/2024 1:35 PM RUG SIZER) Pathologist [facility] Product code [id number] Unit Number [id number] [facility] Product Blood Type OPOS [facility] Dispense Status PRESUMED TRANSFUSED [facility] Blood 05/03/2024 1:35 PM RUG SIZER 05/03/2024 1:37 PM RUG SIZER Narrative [facility] - 05/04/2024 6:01 AM RUG SIZER Are special requirements needed? (All products are leukoreduced and CMV- safe)- >No Date required:-[id number] LRRBC # of [id number] Reasons:-Hgb <7 g/dL} us Rani Corley MD BLOOD BANK PRODUCT ORDERABLES Final Result [facility] Department [place] [address] * (ABNORMAL) Differential, auto (05/03/2024 12:51 PM RUG SIZER) Neutrophil abs 10.3(H) 1.5 - 6.5 K/cumm Imm gran abs 0.3(H) 0.0 - 0.1 K/cumm [facility] Lymphocyte abs 1.9 0.8 - 3.3 K/cumm [facility] Monocyte abs 1.2(H) 0.2 - 0.8 K/cumm [facility] Eosinophil abs 0.1 0.0 - 0.5 K/cumm [facility] Basophil abs 0.0 0.0 - 0.1 K/cumm [facility] Neutrophil pct 74.4 % [facility] Comment: Interpretive Data Percent cell count reference ranges are not reported, since discordance with absolute values may lead to misinterpretation of CBC data. Current Interpretive Data was last revised on 2017. Imm gran pct 2.4 % [facility] Comment: Interpretive Data Percent cell count reference ranges are not reported, since discordance with absolute values may lead to misinterpretation of CBC data. Current Interpretive Data was last revised on 2017. Lymphocyte pct 14.1 % [facility] Comment: Interpretive Data Percent cell count reference ranges are not reported, since discordance with absolute values may lead to misinterpretation of CBC data. Current Interpretive Data was last revised on 2017. Monocyte pct 8.6 % [facility] Comment: Interpretive Data Percent cell count reference ranges are not reported, since discordance with absolute values may lead to misinterpretation of CBC data. Current Interpretive Data was last revised on 2017. Eosinophil pct 0.4 % [facility] Comment: Interpretive Data Percent cell count reference ranges are not reported, since discordance with absolute values may lead to misinterpretation of CBC data. Current Interpretive Data was last revised on 2017. Basophil pct 0.1 % [facility] Comment: Interpretive Data Percent cell count reference ranges are not reported, since discordance with absolute values may lead to misinterpretation of CBC data. Current Interpretive Data was last revised on 2017. Blood 05/03/2024 12:5 1 PM RUG SIZER 05/03/2024 1:17 PM RUG SIZER Maxwell Busby MD LAB BLOOD ORDERABLES Fin al Result Performing Organization Address [facility]/State/ZIP Co de Phone Number [facility] Department [place] [address] * (ABNORMAL) CBC with auto differential (05/03/2024 12:51 PM RUG SIZER) WBC 13.8(H) 3.8 - 9.9 K/cumm Hgb 6.3(C) 11.9 - 15.5 g/dL [facility] Comment:Consistent with prev ious results Hct 18.7(L) 35.6 - 45.5 % [facility] Plt 248 150 - 400 K/cumm [facility] MPV 9.4 9.1 - 12.3 fL [facility] RBC 2.04(L) 3.90 - 5.20 M/cumm [facility] MCV 91.7 81.3 - 96.4 fL [facility] MCH 30.9 27.1 - 33.3 pg [facility] MCHC 33.7 32.3 - 35.7 g/dL [facility] RDW CV 13.2 11.1 - 14.9 % [facility] RDW SD 44.0 35.7 - 48.1 fL [facility] NRBC abs 0.03(H) 0.00 - 0.01 K/cumm [facility] Blood 05/03/2024 12:5 1 PM RUG SIZER 05/03/2024 1:17 PM RUG SIZER Maxwell Busby MD LAB BLOOD ORDERABLES Fin al Result Performing Organization Address City/[facility] Co de Phone Number [facility] Laboratories [place], [place] [id number] * Potassium (05/03/2024 12:51 PM RUG SIZER) Potassium, pl 3.9 3.3 - 4.9 mmol/L Blood 05/03/2024 12:5 1 PM RUG SIZER 05/03/2024 1:27 PM RUG SIZER us Rani Corley MD LAB BLOOD ORDERABLES Final Re sult Performing Organization Address [facility] Co de Phone Number [facility] Department [place] [address] * POCT glucose (05/03/2024 11:38 AM RUG SIZER) Glucose, POC 99 70 - 199 mg/dL Blood 05/03/2024 11:3 8 AM RUG SIZER 05/03/2024 11:38 AM RUG SIZER us Rani Corley MD LAB POCT ORDERABLES - DEVICE Final Result Performing Organization Address [facility] Co de Phone Number [facility] Department [place] [address] * US Vein Duplex Upper Extremity Bilateral Complete (05/03/2024 11:31 AM RUG SIZER) Anatomical Region Laterality Modality Vascular Bilateral Ultrasound 05/03/2024 10:0 5 AM RUG SIZER Narrative 05/04/2024 10:15 AM RUG SIZER [employer] - Department of Vascular Surgery, Vascular Laboratory [address] [place] [address] Upper Extremity Venous Ultrasound Report Patient Name: DARLINE CUI L : 1965 (59y 1m) Study Date: 05/03/2024 10:05:46 AM Gender: F Tech: Location: [id number] Ref Provider: JAYESH HUTCHINS Quality: Adequate Order Provider: JAYESH HUTCHINS PROCEDURES: Vascular Report: Venous Duplex imaging was performed bilaterally in the upper extremities. The internal jugular, subclavian and axillary veins were evaluated for patency, spontaneity and phasicity with Doppler, compression and augmentation maneuvers. The brachial, basilic and cephalic veins were also evaluated with compression maneuvers. INDICATIONS: Pain in Arm, Right - FINDINGS: Performing Elevator Installer: Lara Fisher RVT. Bilateral: Venous Doppler signals in the bilateral upper extremities are within normal limits for spontaneity and phasicity; normal response to compression maneuvers. Comments: The bilateral basilic veins were not well visualized due to diminutive vein size. CONCLUSIONS: 1. No evidence of acute deep vein thrombosis bilaterally in the upper extremities. HISTORY: Not identified. PREVIOUS STUDIES: No previous studies for comparison. DISCLAIMER: The study images and the final report will be retained in the patient chart by the Vascular Laboratory for the legally required time period. This chart constitutes the legal record of any testing performed. ATTESTATION: I have reviewed and interpreted the pertinent images and measurements of this study. I attest to the conclusions in the final report that is provided above. Electronically Signed By: Jourdan Szymanski MD FACS 05/04/2024 10:14:15 AM RUG SIZER Procedure Note Jourdan Szymanski MD - 05/04/2024 [facility] - Department of Vascular Surgery,Vascular Laboratory [address] [place] [address] Upper Extremity Venous Ultrasound Report Patient Name: DARLINE CUI L : 1965 (59y 1m) Study Date: 05/03/2024 10:05:46 AM Gender: F Tech: Location: [id number] Ref Provider: JAYESH HUTCHINS Quality: Adequate Order Provider: JAYESH HUTCHINS PROCEDURES: Vascular Report: Venous Duplex imaging was performed bilaterally in the upper extremities.The internal jugular, subclavian and axillary veins were evaluated for patency,spontaneity and phasicity with Doppler, compression and augmentation maneuvers. Thebrachial, basilic and cephalic veins were also evaluated with compression maneuvers. INDICATIONS: Pain in Arm, Right - FINDINGS: Performing Elevator Installer: Lara Fisher RVT. Bilateral: Venous Doppler signals in the bilateral upper extremities are withinnormal limits for spontaneity and phasicity; normal response to compression maneuvers. Comments: The bilateral basilic veins were not well visualized due to diminutivevein size. CONCLUSIONS: 1. No evidence of acute deep vein thrombosis bilaterally in the upperextremities. HISTORY: Not identified. PREVIOUS STUDIES: No previous studies for comparison. DISCLAIMER: The study images and the final report will be retained in the patientchart by the Vascular Laboratory for the legally required time period. This chartconstitutes the legal record of any testing performed. ATTESTATION: I have reviewed and interpreted the pertinent images and measurements ofthis study. I attest to the conclusions in the final report that is provided above. Electronically Signed By: Jourdan Szymanski MD [facility] 05/04/2024 10:14:15 AM RUG SIZER Jayesh Hutchins MD IM US PROCEDURES Final Resu lt * TRANSTHORACIC ECHO (TTE) COMPLETE W DOPPLER/CF W CONTRAST (05/03/2024 10:20 AM RUG SIZER) Anatomical Region Laterality Modality Ultrasound 05/03/2024 8:21 AM RUG SIZER Narrative 05/03/2024 11:27 AM RUG SIZER [facility] [place] [place] [address] Transthoracic Echocardiographic Report Patient Name: DARLINE CUI L : 1965 (59y 1m) Gender: F Study Date: 05/03/2024 08:21:00 AM Ht(Inch): 60 Wt(Lb): 111.99 BSA: 1.47 Elevator Installer: Katya Cisneros RDCS Location: [id number] Order Provider: RANI CORLEY Heart Rate: 108 BMI: 21.87 BP: 95 / 53 Quality: The study images were of technically good quality. Ref Provider: RANI CORLEY PROCEDURES: Echocardiographic Report: [id number]) Transthoracic complete echo with strain imaging and contrast, 2D, spectral and tissue Doppler, color flow Doppler, M-mode. Additional Procedures: Agitated saline bubble study. Contrast: Contrast Enhancement was Employed: After initial imaging due to sub- optimal quality related to co-morbidity defined by patient's body habitus and used Perflutren contrast because 2 of 16 LV wall segments in any view not visualized, using the volume necessary to obtain adequate images. 0.8 ml Optison Administered, (2.2 ml wasted). INDICATIONS: Pericardial effusion. FINDINGS: Left Ventricle: Mildly dilated left ventricle based on volume index. Normal LV wall thickness. Normal left ventricular systolic function. The Ejection Fraction (Evangelista's) is measured at 72 %. Due to tachycardia, there is fusion of early diastolic filling (E wave) and atrial (A wave) contributions to left ventricular filling. Left ventricular diastolic function is indeterminate. The LV global strain is: -20.6 %. Right Ventricle: Normal right ventricular size. Normal right ventricular systolic function. Left Atrium: The left atrium is normal in size. Right Atrium: The right atrium is normal in size. Atrial Septum: Agitated saline bubble study is negative for intracardiac shunt. Mitral Valve: Mild mitral annular calcification. No mitral regurgitation seen. Aortic Valve: No aortic valve stenosis. The mean transaortic gradient is 2.85 mmHg. The aortic valve area by the continuity equation (using VTI) is 3.08 cm2. Tricuspid Valve: The tricuspid valve demonstrates normal leaflet structure. Pulmonic Valve: The pulmonic valve demonstrates normal leaflet structure. Pericardium: No pericardial effusion. Aorta: The aortic root is normal in size. CONCLUSIONS: 1. Normal LV wall thickness. Normal left ventricular systolic function. The Ejection Fraction (Evangelista's) is measured at 72 %. Due to tachycardia, there is fusion of early diastolic filling (E wave) and atrial (A wave) contributions to left ventricular filling. Left ventricular diastolic function is indeterminate. 2. Normal right ventricular size. Normal right ventricular systolic function. 3. Agitated saline bubble study is negative for intracardiac shunt. 4. There is no significant valvular heart disease. 5. Mild mitral annular calcification. No mitral regurgitation seen. 6. No pericardial effusion. MEASUREMENTS: 2D/MM Value Range Doppler Value Range LVIDd 2D 4.11 cm [ 3.80 - 5.20 ] AV Peak Fly 1.12 m/s [ 1.00 - 1.70 ] LVIDs 2D 2.48 cm [ 2.20 - 3.50 ] AV Peak PG 5.02 IVSd 2D 0.67 cm [ 0.60 - 0.90 ] AV Mean PG 2.85 mmHg LVPWd 2D 0.68 cm [ 0.60 - 0.90 ] AV VTI 19.17 cm LV Thickness Ratio 0.99 LVOT Peak Fly 1.00 m/s [ 0.70 - 1.10 ] LV FS 2D 39.79 % [ 27.00 - 45.00 ] LVOT Peak PG 4.00 LV Mass 2D 80.48 g LVOT Mean PG 2.06 mmHg LV Mass Index 2D 54.75 g/m2 LVOT VTI 19.58 cm RWT 0.33 LVOT Diam 1.96 cm EDV Mod BP 91.34 ml [ 46.00 - 106.00 ] RONY VTI 3.08 cm2 LV EDV Index 62.14 ml/m2 LVOT/AV VTI 1.02 - Dimensionless index (DVI) ESV Mod BP 25.66 ml [ 14.00 - 42.00 ] MV E Peak Fly 0.72 m/s [ 0.60 - 1.30 ] EF Mod BP 72 % [ 54 - 74 ] MV A Peak Fly 1.07 m/s [ 1.00 - 1.20 ] LV GLS -20.6 % [ -18.0 - -16.0 ] MV E/A 0.67 ratio [ 0.80 - 1.50 ] LA Length 2C 3.15 cm MV Decel Time 109.91 msec [ 104.00 - 258.00 ] LA Length 4C 3.41 cm Med E` Fly 9.50 cm/sec [ 8.00 - 15.00 ] LA Volume BP 27.50 ml Lat E` Fly 9.85 cm/sec [ 10.00 - 15.00 ] LA Volume Index 18.71 ml/m2 [ 16.00 - 34.00 ] Average E/E` 7.44 RV Base Dimen 2D 2.5 cm [ 2.5 - 4.2 ] RV S` 0.16 cm/sec RA Volume 16.98 ml PV Peak Fly 0.98 m/s [ 0.40 - 0.80 ] RA Volume Index 11.55 ml/m2 PV Peak PG 3.84 AoR Diam 2D 2.96 cm [ 2.70 - 3.70 ] Ao Root Index 2.01 cm/m2 [ 1.00 - 2.00 ] Asc Ao Diam 2D 2.82 cm Asc Ao Index 1.92 cm/m2 - ATTESTATION: I have reviewed and interpreted the pertinent images and measurements of this study. I attest to the conclusions in the final report that is provided above. DISCLAIMER: The study images and the final report will be retained in the patient chart by the Echo Laboratory for the legally required time period. This chart constitutes the legal record of any testing performed. Electronically Signed By: Walker Saba M.D. 05/03/2024 11:26:10 AM RUG SIZER Electronically Signed By: Walker Saba M.D. 05/03/2024 11:26:10 AM RUG SIZER Procedure Note Walker Saba MD - 05/03/2024 [facility] [place] [place] [address] Transthoracic Echocardiographic Report Patient Name: DARLINE CUI L : 1965 (59y 1m) Gender: F Study Date: 05/03/2024 08:21:00 AM Ht(Inch): 60 Wt(Lb): 111.99 BSA: 1.47 Elevator Installer: Katya Cisneros RDCS Location: [id number] Order Provider:RANI CORLEY Heart Rate: 108 BMI: 21.87 BP: 95 / 53 Quality: The study images were oftechnically good quality. Ref Provider: RANI CORLEY PROCEDURES: Echocardiographic Report: [id number], [id number]) Transthoracic complete echo withstrain imaging and contrast, 2D, spectral and tissue Doppler, color flow Doppler,M-mode. Additional Procedures: Agitated saline bubble study. Contrast: Contrast Enhancement was Employed: After initial imaging due tosub- optimal quality related to co-morbidity defined by patient's body habitus and usedPerflutren contrast because 2 of 16 LV wall segments in any view not visualized,using the volume necessary to obtain adequate images. 0.8 ml Optison Administered, (2.2 mlwasted). INDICATIONS: Pericardial effusion. FINDINGS: Left Ventricle: Mildly dilated left ventricle based on volume index.Normal LV wall thickness. Normal left ventricular systolic function. The EjectionFraction (Evangelista's) is measured at 72 %. Due to tachycardia, there is fusion of earlydiastolic filling (E wave) and atrial (A wave) contributions to left ventricular filling. Leftventricular diastolic function is indeterminate. The LV global strain is: -20.6 %. Right Ventricle: Normal right ventricular size. Normal right ventricularsystolic function. Left Atrium: The left atrium is normal in size. Right Atrium: The right atrium is normal in size. Atrial Septum: Agitated saline bubble study is negative for intracardiacshunt. Mitral Valve: Mild mitral annular calcification. No mitral regurgitationseen. Aortic Valve: No aortic valve stenosis. The mean transaortic gradient is2.85 mmHg. The aortic valve area by the continuity equation (using VTI) is 3.08 cm2. Tricuspid Valve: The tricuspid valve demonstrates normal leafletstructure. Pulmonic Valve: The pulmonic valve demonstrates normal leafletstructure. Pericardium: No pericardial effusion. Aorta: The aortic root is normal in size. CONCLUSIONS: 1. Normal LV wall thickness. Normal left ventricular systolic function.The Ejection Fraction (Evangelista's) is measured at 72 %. Due to tachycardia, there isfusion of early diastolic filling (E wave) and atrial (A wave) contributions to leftventricular filling. Left ventricular diastolic function is indeterminate. 2. Normal right ventricular size. Normal right ventricular systolicfunction. 3. Agitated saline bubble study is negative for intracardiac shunt. 4. There is no significant valvular heart disease. 5. Mild mitral annular calcification. No mitral regurgitation seen. 6. No pericardial effusion. MEASUREMENTS: 2D/MM Value Range DopplerValue Range LVIDd 2D 4.11 cm [ 3.80 - 5.20 ] AV Peak Vel1.12 m/s [ 1.00 - 1.70 ] LVIDs 2D 2.48 cm [ 2.20 - 3.50 ] AV Peak PG5.02 IVSd 2D 0.67 cm [ 0.60 - 0.90 ] AV Mean PG2.85 mmHg LVPWd 2D 0.68 cm [ 0.60 - 0.90 ] AV VTI19.17 cm LV Thickness Ratio 0.99 LVOT Peak Vel1.00 m/s [ 0.70 - 1.10 ] LV FS 2D 39.79 % [ 27.00 - 45.00 ] LVOT Peak PG4.00 LV Mass 2D 80.48 g LVOT Mean PG2.06 mmHg LV Mass Index 2D 54.75 g/m2 LVOT VTI19.58 cm RWT 0.33 LVOT Diam1.96 cm EDV Mod BP 91.34 ml [ 46.00 - 106.00 ] RONY VTI3.08 cm2 LV EDV Index 62.14 ml/m2 LVOT/AV VTI1.02 - Dimensionless index (DVI) ESV Mod BP 25.66 ml [ 14.00 - 42.00 ] MV E Peak Vel0.72 m/s [ 0.60 - 1.30 ] EF Mod BP 72 % [ 54 - 74 ] MV A Peak Vel1.07 m/s [ 1.00 - 1.20 ] LV GLS -20.6 % [ -18.0 - -16.0 ] MV E/A0.67 ratio [ 0.80 - 1.50 ] LA Length 2C 3.15 cm MV Decel Mlas794.91 msec [ 104.00 - 258.00 ] LA Length 4C 3.41 cm Med E` Vel9.50 cm/sec [ 8.00 - 15.00 ] LA Volume BP 27.50 ml Lat E` Vel9.85 cm/sec [ 10.00 - 15.00 ] LA Volume Index 18.71 ml/m2 [ 16.00 - 34.00 ] Average E/E`7.44 RV Base Dimen 2D 2.5 cm [ 2.5 - 4.2 ] RV S`0.16 cm/sec RA Volume 16.98 ml PV Peak Vel0.98 m/s [ 0.40 - 0.80 ] RA Volume Index 11.55 ml/m2 PV Peak PG3.84 AoR Diam 2D 2.96 cm [ 2.70 - 3.70 ] Ao Root Index 2.01 cm/m2 [ 1.00 - 2.00 ] Asc Ao Diam 2D2.82 cm Asc Ao Index1.92 cm/m2 - ATTESTATION: I have reviewed and interpreted the pertinent images and measurements ofthis study. I attest to the conclusions in the final report that is provided above. DISCLAIMER: The study images and the final report will be retained in the patientchart by the Echo Laboratory for the legally required time period. This chart constitutesthe legal record of any testing performed. Electronically Signed By: Walker Saba M.D. 05/03/2024 11:26:10 AM RUG SIZER Electronically Signed By: Walker Saba M.D. 05/03/2024 11:26:10 AM RUG SIZER Rani Corley MD CV ECHO PROCEDURES Final Resu lt * POCT glucose (05/03/2024 9:53 AM RUG SIZER) Glucose, POC 116 70 - 199 mg/dL Blood 05/03/2024 9:53 AM RUG SIZER 05/03/2024 9:53 AM RUG SIZER Rani Corley MD LAB POCT ORDERABLES - DEVICE Final Result [facility] Department of Laboratories [place], [place] [id number] * POCT glucose (05/03/2024 9:01 AM RUG SIZER) Glucose, POC 86 70 - 199 mg/dL Blood 05/03/2024 9:01 AM RUG SIZER 05/03/2024 9:01 AM RUG SIZER Rani Corley MD LAB POCT ORDERABLES - DEVICE Final Result Performing Organization Address City/[facility] Co de Phone Number [facility] Department [place] [address] * (ABNORMAL) eGFR (05/03/2024 8:29 AM RUG SIZER) eGFR 7(L) >=60 mL/min/1. 73 m2 Comment: Interpretive Data Reference Interval Normal >/= 90 mL/min/1.73m2 Mildly decreased* 60 - 89 mL/min/1.73m2 Mildly to moderately decreased 45 - 59 mL/min/1.73m2 Moderately to severely decreased 30 - 44 mL/min/1.73m2 Severely decreased 15 - 29 mL/min/1.73m2 Kidney Failure < 15 mL/min/1.73m2 *Relative to young adult level Estimated glomerular filtration rate is determined by the 2020 CKD-EPI equation recommended by the National Kid[employer] (A Unifying Approach to GFR Estimation: Recommendations of the NKF-ASK Task Force on Reassessing the Inclusion of Race in Diagnosing Kidney Disease, JASN 2020). The CKD-EPI equation should not be used for patients with unstable renal function and has not been validated in children and those over 70. Current interpretive data was last reviewed 2021. Blood 05/03/2024 8:29 AM RUG SIZER 05/03/2024 9:19 AM RUG SIZER Rani Corley MD LAB BLOOD ORDERABLES Final Re sult Performing Organization Address City/[facility]/ZIP Co de Phone Number [facility] Department [place] [address] * (ABNORMAL) Differential, auto (05/03/2024 8:29 AM RUG SIZER) Neutrophil abs 11.9(H) 1.5 - 6.5 K/cumm Imm gran abs 0.4(H) 0.0 - 0.1 K/cumm [facility] Lymphocyte abs 1.7 0.8 - 3.3 K/cumm [facility] Monocyte abs 1.0(H) 0.2 - 0.8 K/cumm [facility] Eosinophil abs 0.0 0.0 - 0.5 K/cumm [facility] Basophil abs 0.0 0.0 - 0.1 K/cumm [facility] Neutrophil pct 78.6 % [facility] Comment: Interpretive Data Percent cell count reference ranges are not reported, since discordance with absolute values may lead to misinterpretation of CBC data. Current Interpretive Data was last revised on 2017. Imm gran pct 2.8 % [facility] Comment: Interpretive Data Percent cell count reference ranges are not reported, since discordance with absolute values may lead to misinterpretation of CBC data. Current Interpretive Data was last revised on 2017. Lymphocyte pct 11.5 % [facility] Comment: Interpretive Data Percent cell count reference ranges are not reported, since discordance with absolute values may lead to misinterpretation of CBC data. Current Interpretive Data was last revised on 2017. Monocyte pct 6.7 % [facility] Comment: Interpretive Data Percent cell count reference ranges are not reported, since discordance with absolute values may lead to misinterpretation of CBC data. Current Interpretive Data was last revised on 2017. Eosinophil pct 0.3 % [facility] Comment: Interpretive Data Percent cell count reference ranges are not reported, since discordance with absolute values may lead to misinterpretation of CBC data. Current Interpretive Data was last revised on 2017. Basophil pct 0.1 % [facility] Comment: Interpretive Data Percent cell count reference ranges are not reported, since discordance with absolute values may lead to misinterpretation of CBC data. Current Interpretive Data was last revised on 2017. Blood 05/03/2024 8:29 AM RUG SIZER 05/03/2024 9:17 AM RUG SIZER us Rani Corley MD LAB BLOOD ORDERABLES Final Re sult [facility] Department [place] [address] * Critical Result Callback Chemistry (05/03/2024 8:29 AM RUG SIZER) Date Notified [id number] Time Notified 1008 [facility] TestName Glucose [facility] Called/Read Back Kori Flores [facility] Credentials RN [facility] Called By JS [facility] Blood 05/03/2024 8:29 AM RUG SIZER 05/03/2024 9:19 AM RUG SIZER Rani Corley MD LAB BLOOD ORDERABLES Final Re sult [facility] Department [place] [address] * (ABNORMAL) CBC with auto differential (05/03/2024 8:29 AM RUG SIZER) Pathologist [facility] WBC 15.2(H) 3.8 - 9.9 K/cumm Hgb 6.2(C) 11.9 - 15.5 g/dL [facility] Comment:Consistent with prev ious results Hct 18.8(L) 35.6 - 45.5 % [facility] Plt 260 150 - 400 K/cumm [facility] MPV 10.1 9.1 - 12.3 fL [facility] RBC 2.05(L) 3.90 - 5.20 M/cumm [facility] MCV 91.7 81.3 - 96.4 fL [facility] MCH 30.2 27.1 - 33.3 pg [facility] MCHC 33.0 32.3 - 35.7 g/dL [facility] RDW CV 13.4 11.1 - 14.9 % [facility] RDW SD 45.6 35.7 - 48.1 fL [facility] NRBC abs 0.04(H) 0.00 - 0.01 K/cumm [facility] Blood 05/03/2024 8:29 AM RUG SIZER 05/03/2024 9:17 AM RUG SIZER Rani Corley MD LAB BLOOD ORDERABLES Final Re sult Performing Organization Address [facility] de Phone Number [facility] [place] [address] * (ABNORMAL) Reticulocyte Count (05/03/2024 8:29 AM RUG SIZER) Retics, absolute 0.034 0.020 - 0.087 M/cumm Retics 1.7 0.4 - 2.9 % [facility] Reticulocyte Hgb 27.1(L) 30.5 - 38.0 pg [facility] Blood 05/03/2024 8:29 AM RUG SIZER 05/03/2024 9:14 AM RUG SIZER Result [facility] Jayesh Hutchins MD LAB BLOOD ORDERABLES Final R esult Performing Organization Address [facility] de Phone Number [facility] Department [place] [address] * (ABNORMAL) Phosphorus (05/03/2024 8:29 AM RUG SIZER) Phosphorus, pl 5.8(H) 2.3 - 4.5 mg/dL Comment:Repeated and Verifie d Blood 05/03/2024 8:29 AM RUG SIZER 05/03/2024 9:13 AM RUG SIZER Rani Corley MD LAB BLOOD ORDERABLES Final Re sult Performing Organization Address [facility] Co de Phone Number [facility] [place] [address] * Magnesium (05/03/2024 8:29 AM RUG SIZER) Magnesium 1.8 1.4 - 2.5 mg/dL Blood 05/03/2024 8:29 AM RUG SIZER 05/03/2024 9:13 AM RUG SIZER Rani Corley MD LAB BLOOD ORDERABLES Final Re sult [facility] [place] [address] * (ABNORMAL) Lactate dehydrogenase (LD) (05/03/2024 8:29 AM RUG SIZER) Lactate dehydrogenase (LDH) 257(H) 100 - 250 Units/L Blood 05/03/2024 8:29 AM RUG SIZER 05/03/2024 9:13 AM RUG SIZER Rani Corley MD LAB BLOOD ORDERABLES Final Re sult Performing Organization Address [facility] Co de Phone Number [facility] Department [place] [address] * (ABNORMAL) Basic metabolic panel (05/03/2024 8:29 AM RUG SIZER) Pathologist [facility] Sodium 135 135 - 145 mmol/L Potassium, pl 4.1 3.3 - 4.9 mmol/L [facility] Chloride 95(L) 97 - 110 mmol/L [facility] CO2 22 22 - 32 mmol/L [facility] Anion gap 18(H) 2 - 15 mmol/L [facility] BUN 34(H) 6 - 25 mg/dL [facility] Creatinine 6.17(H) 0.60 - 1.10 mg/dL [facility] Glucose 50(C) 70 - 199 mg/dL [facility] Comment: Glycolysis suspected; suggest sending a khan top tube. Repeated and Verified Interpretive Data Fasting glucose >/= 126 mg/dl is diagnostic for diabetes. Fasting is defined as no caloric intake for at least 8 hours. Fasting glucose between 100 mg/dl to 125 mg/dl is diagnostic of prediabetes. In a patient with classic symptoms of hyperglycemia or hyperglycemic crisis, a random glucose >/= 200 mg/dl is diagnostic for diabetes. In the absence of unequivocal hyperglycemia, results should be confirmed by repeat testing. The classification and Diagnosis of Diabetes Diabetes Care 202; 46: S19-S40. Current interpretive data was last revised 2022. Calcium 8.0(L) 8.5 - 10.3 mg/dL [facility] Blood 05/03/2024 8:29 AM RUG SIZER 05/03/2024 9:13 AM RUG SIZER us Rani Corley MD LAB BLOOD ORDERABLES Final Re sult Performing Organization Address [facility] Co de Phone Number [facility] [place] [address] * (ABNORMAL) POCT glucose (05/03/2024 8:21 AM RUG SIZER) [facility] Glucose, POC 68(L) 70 - 199 mg/dL Blood 05/03/2024 8:21 AM RUG SIZER 05/03/2024 8:21 AM RUG SIZER us Rani Corley MD LAB POCT ORDERABLES - DEVICE Final Result Performing Organization Address [facility] de Phone Number [facility] Department [place] [address] * Transfuse RBC (05/03/2024 5:26 AM RUG SIZER) Blood us Rani Corley MD BLOOD TRANSFUSION ORDERABLES Final Result Performing Organization Address [facility] de Phone Number [facility] Department [place] [address] * (ABNORMAL) Protein / creatinine ratio, urine, random (05/03/2024 5:15 AM RUG SIZER) [facility] Protein, ur, quant 46.9 mg/dL Comment: Interpretive Data No reference range established. Current interpretive data was last revised 2018. Creatinine Ur 80.5 mg/dL [facility] Comment: Interpretive Data No reference range established. Current interpretive data was last revised 2018. Protein/creatinin e ratio 582.6(H) 0.0 - 180.0 mg/g CR [facility] Urine 05/03/2024 5:15 AM RUG SIZER 05/03/2024 5:55 AM RUG SIZER us Rani Corley MD LAB URINE ORDERABLES Final Re sult Performing Organization Address [facility] Co de Phone Number [facility] [place] [address] * Sodium, urine, random (05/03/2024 5:15 AM RUG SIZER) Sodium, ur <20 mmol/L Comment: Interpretive Data No reference range established. Current interpretive data was last revised 2018. Urine (Urine, Clean Catch) 05/03/2024 5:15 AM RUG SIZER 05/03/2024 5:55 AM RUG SIZER us Rani Corley MD LAB URINE ORDERABLES Final Re sult Performing Organization Address [facility] [place] [address] * Potassium, urine, random (05/03/2024 5:15 AM RUG SIZER) Potassium conc, ur 79.2 mmol/L Comment: Interpretive Data No reference range established. Current interpretive data was last revised 2018. Urine (Urine, Clean Catch) 05/03/2024 5:15 AM RUG SIZER 05/03/2024 5:55 AM RUG SIZER us Rani Corley MD LAB URINE ORDERABLES Final Re sult Performing Organization Address [facility] Co de Phone Number [facility] [place] [address] * Chloride, urine, random (05/03/2024 5:15 AM RUG SIZER) Chloride, ur <25 mmol/L Comment: Interpretive Data No reference range established. Current interpretive data was last revised 2018. Urine (Urine, Clean Catch) 05/03/2024 5:15 AM RUG SIZER 05/03/2024 5:55 AM RUG SIZER us Rani Corley MD LAB URINE ORDERABLES Final Re sult [facility] Department [place] [address] * US Kidney Complete (05/03/2024 4:05 AM RUG SIZER) Anatomical Region Laterality Modality Kidney N/A Ultrasound 05/03/2024 4:11 AM RUG SIZER Impressions 05/03/2024 8:12 AM RUG SIZER No sonographic evidence of hydronephrosis within the limitations as above. Small, echogenic kidneys suggestive of chronic renal parenchymal disease. Dictated by: Beck Massey MD The radiology attending physician has personally reviewed this study, and had reviewed and/or edited this written report and agrees with it. Electronically signed by: Andrei Altamirano M.D. Narrative 05/03/2024 8:12 AM RUG SIZER EXAMINATION: PORTABLE COMPLETE RENAL SONOGRAM HISTORY: 59-year-old female with elevated creatinine and concern for hydronephrosis. COMPARISON: No prior relevant imaging is available for comparison at the time of dictation. FINDINGS: The examination is limited due to bowel gas and portable technique as well as poor sound wave penetration. Kidneys: The echogenicity of both kidneys is increased. The kidneys are small in size. The right kidney measures 8.2 cm in length, and the left, 8 cm in length. There is no definite hydronephrosis in either kidney. Bladder: The urinary bladder is partially decompressed Procedure Note Andrei Altamirano MD - 05/03/2024 EXAMINATION: PORTABLE COMPLETE RENAL SONOGRAM HISTORY: 59-year-old female with elevated creatinine and concern for hydronephrosis. COMPARISON: No prior relevant imaging is available for comparison at the time of dictation. FINDINGS: The examination is limited due to bowel gas and portable technique as well as poor sound wave penetration. Kidneys: The echogenicity of both kidneys is increased. The kidneys are small in size. The right kidney measures 8.2 cm in length, and the left, 8 cm in length. There is no definite hydronephrosis in either kidney. Bladder: The urinary bladder is partially decompressed IMPRESSION: No sonographic evidence of hydronephrosis within the limitations as above. Small, echogenic kidneys suggestive of chronic renal parenchymal disease. Dictated by: Beck Massey MD The radiology attending physician has personally reviewed this study, and had reviewed and/or edited this written report and agrees with it. Electronically signed by: Andrei Altamirano M.D. us Jayesh Hutchins MD IMG US PROCEDURES Final Resu lt * XR Chest 1 View (05/03/2024 3:47 AM RUG SIZER) Anatomical Region Laterality Modality Body, Chest N/A Digital Radiogra phy 05/03/2024 9:53 AM RUG SIZER Impressions 05/03/2024 10:07 AM RUG SIZER Interval placement of a right internal jugular central venous line terminates in the superior vena cava. No consolidation, pleural effusion or pneumothorax. Normal cardiomediastinal silhouette. Dictated by: Cami Dean MD The radiology attending physician has personally reviewed this study, and had reviewed and/or edited this written report and agrees with it. Electronically signed by: Binta Nails M.D. Narrative 05/03/2024 10:07 AM RUG SIZER EXAMINATION: XR CHEST 1 VIEW HISTORY: trialysis placement COMPARISON:Radiograph on 05/02/2024 at 2:50 AM Procedure Note Binta Nails MD - 05/03/2024 EXAMINATION: XR CHEST 1 VIEW HISTORY: trialysis placement COMPARISON:Radiograph on 05/02/2024 at 2:50 AM IMPRESSION: Interval placement of a right internal jugular central venous line terminates in the superior vena cava. No consolidation, pleural effusion or pneumothorax. Normal cardiomediastinal silhouette. Dictated by: Cami Dean MD The radiology attending physician has personally reviewed this study, and had reviewed and/or edited this written report and agrees with it. Electronically signed by: Binta Nails M.D. us Jayesh Hutchins MD IMG XR PROCEDURES Final Resu lt * (ABNORMAL) Potassium, whole blood (05/03/2024 3:22 AM RUG SIZER) Pathologist [facility] Potassium, bld 6.6(C) 3.3 - 4.9 mmol/L Comment:Reviewed Blood 05/03/2024 3:22 AM RUG SIZER 05/03/2024 3:32 AM RUG SIZER us Rani Corley MD LAB BLOOD ORDERABLES Final Re sult [facility] [place] [address] * (ABNORMAL) Differential, auto (05/03/2024 3:22 AM RUG SIZER) Pathologist [facility] Neutrophil abs 11.0(H) 1.5 - 6.5 K/cumm Imm gran abs 0.8(H) 0.0 - 0.1 K/cumm [facility] Lymphocyte abs 2.0 0.8 - 3.3 K/cumm [facility] Monocyte abs 1.1(H) 0.2 - 0.8 K/cumm [facility] Eosinophil abs 0.0 0.0 - 0.5 K/cumm [facility] Basophil abs 0.0 0.0 - 0.1 K/cumm [facility] Neutrophil pct 73.8 % [facility] Comment: Interpretive Data Percent cell count reference ranges are not reported, since discordance with absolute values may lead to misinterpretation of CBC data. Current Interpretive Data was last revised on 2017. Imm gran pct 5.3 % [facility] Comment: Interpretive Data Percent cell count reference ranges are not reported, since discordance with absolute values may lead to misinterpretation of CBC data. Current Interpretive Data was last revised on 2017. Lymphocyte pct 13.4 % [facility] Comment: Interpretive Data Percent cell count reference ranges are not reported, since discordance with absolute values may lead to misinterpretation of CBC data. Current Interpretive Data was last revised on 2017. Monocyte pct 7.3 % [facility] [facility] Comment: Interpretive Data Percent cell count reference ranges are not reported, since discordance with absolute values may lead to misinterpretation of CBC data. Current Interpretive Data was last revised on 2017. Eosinophil pct 0.1 % [facility] Comment: Interpretive Data Percent cell count reference ranges are not reported, since discordance with absolute values may lead to misinterpretation of CBC data. Current Interpretive Data was last revised on 2017. Basophil pct 0.1 % [facility] Comment: Interpretive Data Percent cell count reference ranges are not reported, since discordance with absolute values may lead to misinterpretation of CBC data. Current Interpretive Data was last revised on 2017. Blood 05/03/2024 3:22 AM RUG SIZER 05/03/2024 3:46 AM RUG SIZER us Rani Corley MD LAB BLOOD ORDERABLES Final Re sult Performing Organization Address City/[facility]/ZIP Co de Phone Number [facility] Department [place] [address] * Critical Result Callback Chemistry (05/03/2024 3:22 AM RUG SIZER) Date Notified [id number] Time Notified 423 [facility] TestName Potassium Plas [facility] Called/Read Back Kelley [facility] Credentials RN [facility] Called By ELISE ANDREWS Blood 05/03/2024 3:22 AM RUG SIZER 05/03/2024 3:46 AM RUG SIZER us Jed Saenz MD LAB BLOOD ORDERABLES Final Res ult [facility] [place] [address] * Critical Result Callback Chemistry (05/03/2024 3:22 AM RUG SIZER) Date Notified 20240503 Time Notified 357 [facility] TestName Potassium WB [facility] Called/Read Back Jolynn Reeves [facility] Credentials RN [facility] Called By GRACIELAS [facility] Blood 05/03/2024 3:22 AM RUG SIZER 05/03/2024 3:32 AM RUG SIZER us Rani Corley MD LAB BLOOD ORDERABLES Final Re sult [facility] Department [place] [address] * (ABNORMAL) CBC with auto differential (05/03/2024 3:22 AM RUG SIZER) [facility] WBC 14.9(H) 3.8 - 9.9 K/cumm Hgb 6.1(C) 11.9 - 15.5 g/dL [facility] Comment:latonia biggs rn. Critical result called to and read back by LATONIA BIGGS RN on 05 03 2024 at 0359 to Lyly Yanez. Hct 19.3(L) 35.6 - 45.5 % [facility] Plt 280 150 - 400 K/cumm [facility] MPV 9.5 9.1 - 12.3 fL [facility] RBC 2.04(L) 3.90 - 5.20 M/cumm [facility] MCV 94.6 81.3 - 96.4 fL [facility] MCH 29.9 27.1 - 33.3 pg [facility] MCHC 31.6(L) 32.3 - 35.7 g/dL [facility] RDW CV 13.1 11.1 - 14.9 % [facility] RDW SD 44.9 35.7 - 48.1 fL [facility] NRBC abs 0.06(H) 0.00 - 0.01 K/cumm [facility] Blood 05/03/2024 3:22 AM RUG SIZER 05/03/2024 3:46 AM RUG SIZER Rani Corley MD LAB BLOOD ORDERABLES Final Re sult Performing Organization Address [facility] Co de Phone Number [facility] [place] [address] * Lactate, whole blood (05/03/2024 3:22 AM RUG SIZER) Lactate, bld 1.0 0.7 - 2.0 mmol/L Blood 05/03/2024 3:22 AM RUG SIZER 05/03/2024 3:32 AM RUG SIZER Rani Corley MD LAB BLOOD ORDERABLES Final Re sult Performing Organization Address [facility] de Phone Number [facility] [place] [address] * Type and screen (05/03/2024 3:22 AM RUG SIZER) Zackary, indirect Negative ABO Rh O Positive [facility] Blood 05/03/2024 3:22 AM RUG SIZER 05/03/2024 3:54 AM RUG SIZER Narrative [facility] - 05/03/2024 5:45 AM RUG SIZER Has the patient had Daratumumab or Isatuximab in the past 6 months?->Unknown Rani Corley MD LAB BLOOD BANK TEST ORDERABLE S Final Result Performing Organization Address [facility] de [place] [address] * (ABNORMAL) Potassium (05/03/2024 3:22 AM RUG SIZER) Potassium, pl 6.5(C) 3.3 - 4.9 mmol/L Blood 05/03/2024 3:22 AM RUG SIZER 05/03/2024 3:33 AM RUG SIZER us Rani Corley MD LAB BLOOD ORDERABLES Final Re sult Performing Organization Address [facility] Co de Phone Number [facility] [place] [address] * Haptoglobin (05/03/2024 3:22 AM RUG SIZER) Haptoglobin 154.0 30.0 - 200.0 mg/dL Blood 05/03/2024 3:22 AM RUG SIZER 05/03/2024 3:33 AM RUG SIZER us Rani Corley MD LAB BLOOD ORDERABLES Final Re sult Performing Organization Address [facility] de Phone Number [facility] [place] [address] * (ABNORMAL) Blood gas, venous (05/03/2024 3:22 AM RUG SIZER) pH, Venous 7.21(L) 7.32 - 7.43 PCO2, Venous 34(L) 40 - 50 mmHg [facility] PO2, Venous 36 mmHg [facility] Comment: Interpretive Data No Reference Range Established Current Interpretive Data was last revised on 2017. HCO3 Venous, Calculated 14(L) 20 - 30 mmol/L [facility] BE, venous -13 mmol/L [facility] Comment: Interpretive Data No Reference Range Established Current Interpretive Data was last revised on 2017. Blood 05/03/2024 3:22 AM RUG SIZER 05/03/2024 3:32 AM RUG SIZER us Rani Corley MD LAB BLOOD ORDERABLES Final Re sult Performing Organization Address [facility] Co de Phone Number [facility] [place] [address] * (ABNORMAL) POC Blood Gas and Chemistries, Arterial - (05/03/2024 2:45 AM RUG SIZER) [facility] Hct, POC 29.0(L) 36.3 - 45.3 % Total Hb, POC 9.5(L) 11.9 - 15.5 g/dL [facility] Blood 05/03/2024 2:45 AM RUG SIZER 05/03/2024 2:45 AM RUG SIZER Rani Corley MD LAB POCT ORDERABLES - DEVICE Final Result Performing Organization Address City/[facility]/ZIP Co de Phone Number [facility] Department [place] [address] * Troponin I high-sensitivity 2-hour (05/03/2024 2:36 AM RUG SIZER) [facility] Trop I hs 17 <=17 ng/L Comment: Interpretive Data For further hscTnI resources including the diagnostic algorithm and an aid in interpretation, copy and paste this link: [email or web address] Current Interpretive Data last revised 2019. Trop I hs delta See Comment ng/L [facility] Comment:Inappropriate collec tion time to report a delta. Trop I hs pct delta See Comment % [facility] Comment:Inappropriate collec tion time to report a delta. Trop I hs interp See Comment [facility] Comment:Inappropriate collec tion time to report a delta. Blood 05/03/2024 2:36 AM RUG SIZER 05/03/2024 3:12 AM RUG SIZER Nikki Orlando NP LAB BLOOD ORDERABLES Final Result [facility] [place] [address] * HIV 1/2 Antibody plus p24 Antigen Blood (05/03/2024 2:36 AM RUG SIZER) [facility] HIV 1/2 ab + p24 ag Nonreactive Nonreactive Comment:Nonreactive for HIV- 1 antigen and HIV-1/HIV-2 antibodies. No laboratory evidence of HIV infection. If acute HIV infection is suspected, consider testing for HIV-1 RNA. Current interpretive data was last revised on 21. Blood 05/03/2024 2:36 AM RUG SIZER 05/03/2024 3:12 AM RUG SIZER us Rani Corley MD LAB MICROBIOLOGY - GENERAL OR DERABLES Final Result Performing Organization Address [facility] Co de Phone Number [facility] [place] [address] * Hepatitis C antibody Blood (05/03/2024 2:36 AM RUG SIZER) [facility] Hep C Ab Nonreactive Nonreactive Comment:Antibodies to HCV no t detected. Does NOT exclude the possibility of recent exposure to HCV. Current interpretive data was last revised on 21 Blood 05/03/2024 2:36 AM RUG SIZER 05/03/2024 3:12 AM RUG SIZER us Rani Corley MD LAB MICROBIOLOGY - GENERAL OR DERABLES Final Result Performing Organization Address [facility] Co de Phone Number [facility] [place] [address] * Hepatitis B surface antibody (immune status) Blood (05/03/2024 2:36 AM RUG SIZER) Pathologist [facility] HBsAb (immune status) Nonreactive Comment:This result is consi stent with a lack of immunity to Hepatitis B Virus when used in the setting of routine screening. Current interpretative data was last revised on 21 Blood 05/03/2024 2:36 AM RUG SIZER 05/03/2024 3:12 AM RUG SIZER us Rani Corley MD LAB MICROBIOLOGY - GENERAL OR DERABLES Final Result Performing Organization Address [facility] Co de Phone Number [facility] [place] [address] * Hepatitis B Surface Antigen Blood (05/03/2024 2:36 AM RUG SIZER) HepBsAg Nonreactive Nonreactive Blood 05/03/2024 2:36 AM RUG SIZER 05/03/2024 3:12 AM RUG SIZER Rani Corley MD LAB MICROBIOLOGY - GENERAL OR DERABLES Final Result Performing Organization Address [facility] Co [place] [address] * Infection Prevention MRSA Only (Staphylococcus aureus) Culture Nasal (05/03/2024 2:36 AM RUG SIZER) Report Final Report: Negative Nasal 05/03/2024 2:36 AM RUG SIZER 05/03/2024 4:11 AM RUG SIZER Narrative [facility] - 05/04/2024 6:18 AM RUG SIZER Testing performed by [facility] ([phone]). Rani Corley MD LAB MICROBIOLOGY - GENERAL OR DERABLES Final Result Performing Organization Address [facility] Co de Phone Number [facility] [place] [address] * (ABNORMAL) PTH (05/03/2024 2:36 AM RUG SIZER) PTH 576(H) 15 - 65 pg/mL Blood 05/03/2024 2:36 AM RUG SIZER 05/03/2024 2:59 AM RUG SIZER Rani Corley MD LAB BLOOD ORDERABLES Final Re sult Performing Organization Address [facility] Co de Phone Number [facility] [place] [address] * (ABNORMAL) Hemoglobin A1c (05/03/2024 2:36 AM RUG SIZER) Hgb A1C 6.2(H) 4.0 - 5.6 % Estimated Average Glucose 131 mg/dL [facility] Comment: The ADA recommends reporting an estimated Average Glucose (eAG) with all Hemoglobin A1c results using the equation derived from a study of 507 normal and diabetic adults. Minority populations were underrepresented and children were not included. (Diabetes Care 2020; 43(S1): S66-S76). The eAG is not equivalent to a fasting glucose. Blood 05/03/2024 2:36 AM RUG SIZER 05/03/2024 2:59 AM RUG SIZER us Rani Corley MD LAB BLOOD ORDERABLES Final Re sult [facility] Department [place] [address] * (ABNORMAL) eGFR (05/03/2024 2:33 AM RUG SIZER) eGFR 3(L) >=60 mL/min/1. 73 m2 Comment: Interpretive Data Reference Interval Normal >/= 90 mL/min/1.73m2 Mildly decreased* 60 - 89 mL/min/1.73m2 Mildly to moderately decreased 45 - 59 mL/min/1.73m2 Moderately to severely decreased 30 - 44 mL/min/1.73m2 Severely decreased 15 - 29 mL/min/1.73m2 Kidney Failure < 15 mL/min/1.73m2 *Relative to young adult level Estimated glomerular filtration rate is determined by the 2020 CKD-EPI equation recommended by the National Kidney Foundation (A Unifying Approach to GFR Estimation: Recommendations of the NKF-ASK Task Force on Reassessing the Inclusion of Race in Diagnosing Kidney Disease, JASN 2020). The CKD-EPI equation should not be used for patients with unstable renal function and has not been validated in children and those over 70. Current interpretive data was last reviewed 2021. Blood 05/03/2024 2:33 AM RUG SIZER 05/03/2024 3:19 AM RUG SIZER Rani Corley MD LAB BLOOD ORDERABLES Final Re sult Performing Organization Address City/[facility]/ZIP Co de Phone Number [facility] [place] [address] * Critical Result Callback Chemistry (05/03/2024 2:33 AM RUG SIZER) Date Notified [id number] Time Notified 407 [facility] TestName Anion Gap, Potassium Plas MINERVA ANDREWS Called/Read Back Jolynn ANDREWS Credentials RN [facility] ANDREWS Called By RKJayjay ANDREWS Blood 05/03/2024 2:33 AM RUG SIZER 05/03/2024 3:19 AM RUG SIZER Rani Corley MD LAB BLOOD ORDERABLES Final Re sult Performing Organization Address [facility] Co de Phone Number [facility] [place] [address] * (ABNORMAL) Pro B-type natriuretic peptide (05/03/2024 2:33 AM RUG SIZER) NT-proBNP 3,761(H) <=300 pg/mL Comment: Interpretive Comments: A. Dyspnea in Acute Care Setting All Ages: < 300 pg/ml, acute heart failure unlikely. < 50 yrs: 300 - 450 pg/ml, further investigation warranted. > 450 pg/ml, acute heart failure likely. 50 - 74 yrs: 300 - 900 pg/ml, further investigation warranted. > 900 pg/ml, acute heart failure likely . > or = 75 yrs: 450 - 1800 pg/ml, further investigation warranted. > 1800 pg/ml, acute heart failure likely. B. Non-acute Setting < 75 yrs < 125 pg/ml, rules out heart failure. > or = 125 pg/ml, further investigation warranted. > or = 75 yrs < 450 pg/ml, rules out heart failure. > or = 450 pg/ml, further investigation warranted. - Knowledge of each individual patient's NT-proBNP range may be more useful than using similar cut-points for every patient. Please note that marked elevations in NT-proBNP levels may be observed in state other than Left Ventricular Congestive Failure, including: acute coronary syndromes, right heart strain/failure (including pulmonary embolism and cor pulmonale), critical illness, renal failure, as well as advanced age. - References: 1. Manfred OWENS et.al. Eur Heart J. 2006:27:330-337. 2. Trista DELEON, Saran CARVER. J. AM Dai Cardiol: Cardiovasc Imag. 2009;2: 216- 225. Interpretive Data Last Revised Date: 2017. Blood 05/03/2024 2:33 AM RUG SIZER 05/03/2024 3:19 AM RUG SIZER Rani Corley MD LAB BLOOD ORDERABLES Final Re sult Performing Organization Address [facility] Co de Phone Number [facility] Department [place] [address] * Calcium, ionized (05/03/2024 2:33 AM RUG SIZER) Calcium, Ionized 5.00 4.50 - 5.10 mg/dL Blood 05/03/2024 2:33 AM RUG SIZER 05/03/2024 3:15 AM RUG SIZER Rani Corley MD LAB BLOOD ORDERABLES Final Re sult Performing Organization Address [facility] Co de Phone Number [facility] Department [place] [address] * (ABNORMAL) Vitamin D 25 hydroxy (05/03/2024 2:33 AM RUG SIZER) Vitamin D 25-OH 6(L) 30 - 80 ng/mL Blood 05/03/2024 2:33 AM RUG SIZER 05/03/2024 3:19 AM RUG SIZER us Rani Corley MD LAB BLOOD ORDERABLES Final Re sult Performing Organization Address [facility] Co de Phone Number [facility] [place] [address] * (ABNORMAL) Phosphorus (05/03/2024 2:33 AM RUG SIZER) Phosphorus, pl 13.5(H) 2.3 - 4.5 mg/dL Blood 05/03/2024 2:33 AM RUG SIZER 05/03/2024 3:19 AM RUG SIZER us Rani Corley MD LAB BLOOD ORDERABLES Final Re sult Performing Organization Address [facility] Co de Phone Number [facility] [place] [address] * (ABNORMAL) Magnesium (05/03/2024 2:33 AM RUG SIZER) Magnesium 2.9(H) 1.4 - 2.5 mg/dL Blood 05/03/2024 2:33 AM RUG SIZER 05/03/2024 3:19 AM RUG SIZER us Rani Corley MD LAB BLOOD ORDERABLES Final Re sult Performing Organization Address [facility] Co de Phone Number [facility] Department [place] [address] * Cholesterol, LDL, direct (05/03/2024 2:33 AM RUG SIZER) LDL Cholesterol, Direct 74 <=129 mg/dL Comment: Interpretive Data Ages < or = 19 years Acceptable: <110 mg/dL Borderline high: 110-129 mg/dL High: >or= 130 mg/dL Ages > or = 20 years Optimal: <100 mg/dL Near optimal: 100-129 mg/dL Borderline high: 130-159 mg/dL High: >160 mg/dL Literature References: 1. Expert Panel on Integrated Guidelines for Cardiovascular Health and Risk Reduction in Children and Adolescents. Pediatrics 2011;128:S213 2. NCEP Expert Panel. Circulation 2004;110:227 Current Interpretive Data was last revised on 2017. Blood 05/03/2024 2:33 AM RUG SIZER 05/03/2024 3:19 AM RUG SIZER us Rani Corley MD LAB BLOOD ORDERABLES Final Re sult Performing Organization Address [facility] Co de Phone Number [facility] [place] [address] * Folate (05/03/2024 2:33 AM RUG SIZER) Folic acid 7.7 >=5.0 ng/mL Blood 05/03/2024 2:33 AM RUG SIZER 05/03/2024 3:19 AM RUG SIZER us Rani Corley MD LAB BLOOD ORDERABLES Final Re sult Performing Organization Address [facility] Co de Phone Number [facility] [place] [address] * Vitamin B12 (05/03/2024 2:33 AM RUG SIZER) Vitamin B12 703 230 - 1,250 pg/mL Blood 05/03/2024 2:33 AM RUG SIZER 05/03/2024 3:19 AM RUG SIZER us Rani Corley MD LAB BLOOD ORDERABLES Final Re sult Performing Organization Address [facility] Co de Phone Number [facility] [place] [address] * Creatine kinase (CK), total (05/03/2024 2:33 AM RUG SIZER) CK 132 30 - 200 Units/L Blood 05/03/2024 2:33 AM RUG SIZER 05/03/2024 3:19 AM RUG SIZER us Rani oCrley MD LAB BLOOD ORDERABLES Final Re sult [facility] [place] [address] * (ABNORMAL) Comprehensive metabolic panel (05/03/2024 2:33 AM RUG SIZER) Sodium 133(L) 135 - 145 mmol/L Potassium, pl 7.0(C) 3.3 - 4.9 mmol/L [facility] Chloride 91(L) 97 - 110 mmol/L [facility] CO2 14(L) 22 - 32 mmol/L [facility] Anion gap 28(C) 2 - 15 mmol/L [facility] BUN 77(H) 6 - 25 mg/dL [facility] Creatinine 12.32(H) 0.60 - 1.10 mg/dL [facility] Glucose 101 70 - 199 mg/dL [facility] Comment: Interpretive Data Fasting glucose >/= 126 mg/dl is diagnostic for diabetes. Fasting is defined as no caloric intake for at least 8 hours. Fasting glucose between 100 mg/dl to 125 mg/dl is diagnostic of prediabetes. In a patient with classic symptoms of hyperglycemia or hyperglycemic crisis, a random glucose >/= 200 mg/dl is diagnostic for diabetes. In the absence of unequivocal hyperglycemia, results should be confirmed by repeat testing. The classification and Diagnosis of Diabetes Diabetes Care 202; 46: S19-S40. Current interpretive data was last revised 2022. Calcium 9.3 8.5 - 10.3 mg/dL [facility] Bilirubin, total <0.2 0.1 - 1.2 mg/dL [facility] Protein, pl 5.1(L) 6.5 - 8.5 g/dL [facility] Albumin 2.8(L) 3.5 - 5.0 g/dL [facility] Alk phos 95 40 - 130 Units/L [facility] ALT 20 7 - 45 Units/L [facility] AST 19 10 - 45 Units/L [facility] Blood 05/03/2024 2:33 AM RUG SIZER 05/03/2024 3:19 AM RUG SIZER us Rani Corley MD LAB BLOOD ORDERABLES Final Re sult Performing Organization Address City/[facility] Co de Phone Number [facility] [place] [address] * POCT glucose (05/03/2024 2:30 AM RUG SIZER) Pathologist [facility] Glucose, POC 148 70 - 199 mg/dL Blood 05/03/2024 2:30 AM RUG SIZER 05/03/2024 2:30 AM RUG SIZER us Rani Corley MD LAB POCT ORDERABLES - DEVICE Final Result Performing Organization Address [facility] de Phone Number [facility] [place] [address] * ECG 12 lead (05/03/2024 2:27 AM RUG SIZER) [facility] Ventricular Rate EKG/Min 88 BPM [facility] Atrial Rate 88 BPM [facility] NV-Interval (MSEC) 182 ms [facility] QRS-Interval (MSEC) 68 ms [facility] QT-Interval (MSEC) 344 ms [facility] QTc 416 ms [facility] P [place] 58 degrees [facility] R [place] 74 degrees [facility] T [place] 61 degrees [facility] Diagnosis Normal sinus rhythm Nonspecific ST abnormality Abnormal ECG No previous ECGs available Confirmed by HERNANDEZ ARNOLD M.D ([id number]) on 05/03/2024 11:18:58 AM [facility] 05/03/2024 2:27 AM RUG SIZER 05/03/2024 11:18 AM RUG SIZER us Rani Corley MD ECG ORDERABLES Final Result Performing Organization Address [facility] Co de Phone Number [facility] * Prepare RBC: 2 Units (05/03/2024 2:17 AM RUG SIZER) Product code [id number] Unit Number [id number] [facility] Product Blood Type OPOS [facility] Dispense Status RETURNED [facility] code [id number] [facility] Unit Number [id number] [facility] Product Blood Type OPOS [facility] Dispense Status PRESUMED TRANSFUSED [facility] Blood 05/03/2024 2:17 AM RUG SIZER 05/03/2024 2:16 AM RUG SIZER Narrative [facility] - 05/06/2024 12:05 AM RUG SIZER Are special requirements needed? (All products are leukoreduced and CMV- safe)- >No Date required:-[id number] LRRBC # of [id number] Reasons:-Hgb <7 g/dL} Rani Corley MD BLOOD BANK PRODUCT ORDERABLES Final Result Performing Organization Address [facility] Co de Phone Number [facility] Department [place] [address] * POCT glucose (05/03/2024 1:47 AM RUG SIZER) [facility] Glucose, POC 186 70 - 199 mg/dL Blood 05/03/2024 1:47 AM RUG SIZER 05/03/2024 1:47 AM RUG SIZER Rani Corley MD LAB POCT ORDERABLES - DEVICE Final Result Performing Organization Address City/[facility]/ZIP Co de Phone Number [facility] [place] [address] * ECG 12-LEAD (05/03/2024 1:42 AM RUG SIZER) Narrative [facility] [place] - 05/03/2024 1:42 AM RUG SIZER Jed Saenz MD 05/03/2024 1:43 AM ECG 12 lead Date/Time: 05/03/2024 1:42 AM Performed by: Jed Saenz MD Authorized by: Jed Saenz MD Rate: ECG rate: 79 ECG rate assessment: normal Rhythm: Rhythm: sinus rhythm Ectopy: Ectopy: none QRS: QRS axis: Normal QRS intervals: Normal Conduction: Conduction: normal ST segments: ST segments: Normal T waves: T waves: normal Previous ECG: Previous ECG: Compared to current Similarity: No change Interpretation: Interpretation: No significant change Recommended Follow-up: Recommended follow up: further workup in the ED Procedure Note Jed Saenz MD - 05/03/2024 1:42 AM CST Procedure ECG 12 lead Date/Time: 05/03/2024 1:42 AM Performed by: Jed Saenz MD Authorized by: Jed Saenz MD Rate: ECG rate: 79 ECG rate assessment: normal Rhythm: Rhythm: sinus rhythm Ectopy: Ectopy: none QRS: QRS axis: Normal QRS intervals: Normal Conduction: Conduction: normal ST segments: ST segments: Normal T waves: T waves: normal Previous ECG: Previous ECG: Compared to current Similarity: No change Interpretation: Interpretation: No significant change Recommended Follow-up: Recommended follow up: further workup in the ED Jed Saenz MD 05/03/24 0143 us Jed Saenz MD ECG ORDERABLES Final Result Performing Organization Address [facility] de Phone Number [facility] * Troponin I high-sensitivity 4-hour (05/03/2024 1:38 AM RUG SIZER) Trop I hs 11 <=17 ng/L Comment: Interpretive Data For further hscTnI resources including the diagnostic algorithm and an aid in interpretation, copy and paste this link: https://bjhlab.testcatalog.org/show/hsTrop-1 Current Interpretive Data last revised 2019. Trop I hs delta -1 ng/L MINERVA ANDREWS Trop I hs interp Insignificant MINERVA [place] Blood 05/03/2024 1:38 AM RUG SIZER 05/03/2024 2:04 AM RUG SIZER us Nikki Orlando BANK ADVISOR LAB BLOOD ORDERABLES Final Result Performing Organization Address City/[facility] Co de Phone Number [facility] Department [place] [address] * Critical Result Callback Chemistry (05/03/2024 1:38 AM RUG SIZER) Date Notified 20240503 Time Notified 234 MINERVA ANDREWS TestName Potassium Plas [facility] Called/Read Back Jolynn ANDREWS Credentials ALICIA PALMA [facility] Called By MILES ANDREWS Blood 05/03/2024 1:3 8 AM RUG SIZER 05/03/2024 2:04 AM RUG SIZER us Jed Saenz MD LAB BLOOD ORDERABLES Final Res ult [facility] Department [place] [address] * (ABNORMAL) Potassium (05/03/2024 1:38 AM RUG SIZER) Potassium, pl 7.2(C) 3.3 - 4.9 mmol/L Blood 05/03/2024 1:38 AM RUG SIZER 05/03/2024 2:04 AM RUG SIZER us Rani Corley MD LAB BLOOD ORDERABLES Final Re sult Performing Organization Address City/[facility]/ZIP Co de Phone Number [facility] Department [place] [address] * Critical Result Callback Chemistry (05/03/2024 12:39 AM RUG SIZER) Date Notified 20240503 Time Notified 121 [facility] TestName Potassium Plas [facility] Called/Read Back Jed MOORE Credentials MD MINERVA MOORE Called By MILES MOORE Blood 05/03/2024 12:3 9 AM RUG SIZER 05/03/2024 12:50 AM RUG SIZER Nikki Orlando NP LAB BLOOD ORDERABLES Final Result Performing Organization Address [facility] Co de Phone Number [facility] [place] [address] * aPTT (05/03/2024 12:39 AM RUG SIZER) aPTT 29 28 - 38 sec Comment: Interpretive Data Heparin therapeutic range: 66.0 - 100.0 seconds. Range based on correlation with therapeutic heparin activity range of 0.3 - 0.7 Units/mL. Current interpretive data was last revised on 2022. Blood 05/03/2024 12:3 9 AM RUG SIZER 05/03/2024 12:54 AM RUG SIZER Quyen Whitman MD LAB BLOOD ORDERABLES Fin al Result Performing Organization Address [facility] de Phone Number [facility] [place] [address] * Protime-INR (05/03/2024 12:39 AM RUG SIZER) PT 9.9 9.7 - 13.0 sec INR 0.92 0.90 - 1.20 [facility] Comment: Interpretive data Oral anticoagulant therapeutic ranges: Venous thromboembolism prophylaxis or treatment: 2.0-3.0 CARDIOLOGY Standard range: 2.0-3.0 High-intensity range: 2.5-3.5 Refer to indication-specific guidelines for appropriate target ranges for prosthetic heart valve replacement. Current interpretive data was last revised on 2019. Blood 05/03/2024 12:3 9 AM RUG SIZER 05/03/2024 12:54 AM RUG SIZER Quyen Whitman MD LAB BLOOD ORDERABLES Fin al Result Performing Organization Address [facility] Co de Phone Number [facility] [place] [address] * (ABNORMAL) Potassium (05/03/2024 12:39 AM RUG SIZER) Potassium, pl 6.9(C) 3.3 - 4.9 mmol/L Blood 05/03/2024 12:3 9 AM RUG SIZER 05/03/2024 12:50 AM RUG SIZER us Nikki Orlando BANK ADVISOR LAB BLOOD ORDERABLES Final Result [facility] Department [place] [address] * NV INSJ NON-TUNNELED CENTRAL VENOUS CATH AGE 5 YR/> (05/03/2024 12:26 AM RUG SIZER) Narrative Jayesh Hutchins MD - 05/03/2024 12:26 AM RUG SIZER Quyen Whitman MD 05/03/2024 12:28 AM Central Line Date/Time: 05/03/2024 12:26 AM Performed by: Quyen Whitman MD Authorized by: Jayesh Hutchins MD [place] Protocol: RN Notified of Procedure: yes Informed consent: Unable to obtain due to emergent status Patient's stated name/ matches armband: Yes Supplies, devices and special equipment are available: yes Site/side marked: yes Immediately prior to the procedure a time out was called: a verbal verification by the procedure participants confirmed correct patient identity, correct site/side marked and visible (if applicable); agreement on procedure to be done; and correct patient positioning Indications: dialysis. Pre-procedure details: Hand hygiene: Hand hygiene performed prior to insertion Sterile barrier technique: All elements of maximal sterile technique followed Skin preparation: ChloraPrep Sedation: Sedation used: no Anesthesia (see MAR for exact dosages): Anesthesia method: Local infiltration Local anesthetic: Lidocaine 1% w/o Procedure details: Location: R internal jugular Patient position: Flat Procedural supplies: Trialysis catheter Catheter size: 13. Ultrasound guidance: yes Ultrasound guidance used for( if US guidance yes, must make choice here as well): Real-time guidance and pre-procedure marking Number of attempts: 2 Successful placement: yes Catheter tip termination location: Superior vena cava Post-procedure details: Assessment: Patent vessel us Jayesh Hutchins MD IN CLINIC/BEDSIDE ORDERABLES Final Result * (ABNORMAL) POCT creatinine (05/02/2024 11:37 PM RUG SIZER) Creatinine POC 14.1(H) 0.6 - 1.1 mg/dL Blood 05/02/2024 11:3 7 PM RUG SIZER 05/02/2024 11:37 PM RUG SIZER Jayesh Hutchins MD LAB POCT ORDERABLES - DEVICE Final Result Performing Organization Address [facility] Co de Phone Number [facility] [place] [address] * (ABNORMAL) POCT glucose (05/02/2024 11:33 PM RUG SIZER) Glucose, POC 257(H) 70 - 199 mg/dL Blood 05/02/2024 11:3 3 PM RUG SIZER 05/02/2024 11:33 PM RUG SIZER Result [facility] Jayesh Hutchins MD LAB POCT ORDERABLES - DEVICE Final Result Performing Organization Address [facility] de Phone Number [facility] Department [place] [address] * (ABNORMAL) POCT glucose (05/02/2024 11:29 PM RUG SIZER) Glucose, POC 239(H) 70 - 199 mg/dL Blood 05/02/2024 11:2 9 PM RUG SIZER 05/02/2024 11:29 PM RUG SIZER Result [facility] Jayesh Hutchins MD LAB POCT ORDERABLES - DEVICE Final Result Performing Organization Address [facility] Co de Phone Number [facility] [place] [address] * XR Chest 1 Vw Portable (05/02/2024 11:25 PM RUG SIZER) Anatomical Region Laterality Modality Body, Chest N/A Computed Radiogr aphy 05/02/2024 11:5 5 PM RUG SIZER Impressions 05/04/2024 7:54 AM RUG SIZER There is no pulmonary consolidation, pleural effusion, or pneumothorax. There is mild left basilar atelectasis or aspiration changes. No pulmonary edema. The cardiomediastinal silhouette is within normal limits. Dictated by: Beck Massey MD The radiology attending physician has personally reviewed this study, and had reviewed and/or edited this written report and agrees with it. Electronically signed by: Zoraida Sullivan M.D. Narrative 05/04/2024 7:54 AM RUG SIZER EXAMINATION: XR CHEST 1 VIEW HISTORY: Shortness of breath COMPARISON: No prior relevant imaging is available for comparison at the time of dictation. Procedure Note Zoraida Sullivan MD - 05/04/2024 EXAMINATION: XR CHEST 1 VIEW HISTORY: Shortness of breath COMPARISON: No prior relevant imaging is available for comparison at the time of dictation. IMPRESSION: There is no pulmonary consolidation, pleural effusion, or pneumothorax. There is mild left basilar atelectasis or aspiration changes. No pulmonary edema. The cardiomediastinal silhouette is within normal limits. Dictated by: Beck Massey MD The radiology attending physician has personally reviewed this study, and had reviewed and/or edited this written report and agrees with it. Electronically signed by: Zoraida Sullivan M.D. Jayesh Hutchins MD IMG XR PROCEDURES Final Resu lt * NV CRITICAL CARE ILL/INJURED PATIENT INIT 30-74 MIN (05/02/2024 11:11 PM RUG SIZER) Narrative Jayesh Hutchins MD - 05/02/2024 11:11 PM RUG SIZER Jayesh Hutchins MD 05/02/2024 11:11 PM Critical Care Performed by: Jayesh Hutchins MD Authorized by: Jayesh Hutchins MD Critical care provider statement: As reflected in the history, physical exam, orders, notes, and/or MDM, I was personally present while the patient was critically ill and provided critical care services for 70 minutes, excluding time involved in separately billable procedures. Critical care was necessary to treat or prevent imminent or life-threatening deterioration of the following condition(s): unstable vital signs acute renal failure, acute electrolyte derangement, lactic acidosis, hyperkalemia management, acid-base disturbance and severe metabolic condition Critical care was time spent by me providing the following: continuous telemetry, continuous pulse oximetry, continuous capnography, interpretation of bedside monitors, imaging, and arterial/venous lab draws, serial bedside patient exams and serial laboratory checks Discussion with nephrology for emergent dialysis active repletion of electrolytes, hyperkalemia medical management and initiation of acute renal replacement therapy I admitted this patient to an Intensive Care unit (ICU) and discussed management with the admitting team. I spent time documenting in the medical record. I spent time discussing the management and therapeutic options for this critically ill patient with the patient themselves or with the appropriate designated surrogate decision-maker. I spent time discussing the management of this critically ill patient with consultants and the medical staff. I ordered and reviewed test results and/or imaging studies. I provided emergent necessary critical care medicine services to this patient. Jayesh Hutchins MD IN CLINIC/BEDSIDE ORDERABLES Final Result * (ABNORMAL) Potassium, whole blood (05/02/2024 10:38 PM RUG SIZER) Potassium, bld 7.2(C) 3.3 - 4.9 mmol/L Blood 05/02/2024 10:3 8 PM RUG SIZER 05/02/2024 10:43 PM RUG SIZER us Jayesh Hutchins MD LAB BLOOD ORDERABLES Final R esult [facility] Department [place] [address] * Check Sample (05/02/2024 10:38 PM RUG SIZER) ABO Rh O Positive [facility] OTHER 05/02/2024 10:3 8 PM RUG SIZER 05/02/2024 10:54 PM RUG SIZER us Katja Teague MD PhD LAB BLOOD ORDERA BLES Final Result Performing Organization Address [facility] Co de Phone Number [facility] [place] [address] [facility] * Critical Result Callback Chemistry (05/02/2024 10:38 PM RUG SIZER) Date Notified 20240502 Time Notified 2302 MIN[facility]A [facility] TestName Potassium WB MINERVA ANDREWS Called/Read Back Quyen MOORE Credentials MD MINERVA ANDREWS Called By hyacinth ANDREWS Blood 05/02/2024 10:3 8 PM RUG SIZER 05/02/2024 10:43 PM RUG SIZER us Jayesh Hutchins MD LAB BLOOD ORDERABLES Final R esult Performing Organization Address [facility] Co de Phone Number [facility] Department [place] [address] * (ABNORMAL) Potassium, whole blood (05/02/2024 10:23 PM RUG SIZER) Pathologist [facility] Potassium, bld 7.2(C) 3.3 - 4.9 mmol/L Blood 05/02/2024 10:2 3 PM RUG SIZER 05/02/2024 10:43 PM RUG SIZER us Quyen Whitman MD LAB BLOOD ORDERABLES Fin al Result Performing Organization Address City/[facility] Co de Phone Number [facility] [place] [address] * Critical Result Callback Chemistry (05/02/2024 10:23 PM RUG SIZER) Date Notified 20240502 Time Notified 2302 [facility] TestName Potassium WB MINERVA MOORE Called/Read Back Quyen MOORE Credentials MD MINERVA MOORE Called By hyacinth MOORE Blood 05/02/2024 10:2 3 PM RUG SIZER 05/02/2024 10:43 PM RUG SIZER Quyen Whitman MD LAB BLOOD ORDERABLES Fin al Result Performing Organization Address [facility] Co de Phone Number [facility] [place] [address] * POCT glucose (05/02/2024 9:49 PM RUG SIZER) Glucose, POC 158 70 - 199 mg/dL Blood 05/02/2024 9:49 PM RUG SIZER 05/02/2024 9:49 PM RUG SIZER Jayseh Hutchins MD LAB POCT ORDERABLES - DEVICE Final Result Performing Organization Address [facility] de Phone Number [facility] Department [place] [address] * Blood culture Blood Antecubital, right (05/02/2024 9:46 PM RUG SIZER) Report Final Report: No growth Blood (Antecubital, right) 05/02/2024 9:46 PM RUG SIZER 05/02/2024 9:58 PM RUG SIZER Narrative [facility]A [facility] - 05/07/2024 3:11 PM RUG SIZER From a different site than #1. Draw Blood cultures before administration of Antibiotics Collection->Peripheral 1. Blood cultures are incubated for 4 days on a continuously monitored blood culture system. The first report of a negative culture is issued within 24 hours of receipt of the specimen in the laboratory. 2. Positive culture results are reported as soon as they are detected. 3. The most important factor for detection of microbes in the setting of bloodstream infection is the volume of blood submitted for culture. Failure to collect an optimal blood volume can result in false negative blood cultures. 4. For pediatric patients, the recommended blood volume to collect follows a weight based strategy. See the electronic test catalog for collection instructions. 5. For positive blood cultures, a rapid molecular test may be performed for organism identification using the danna ePlex blood culture identification panel for gram positive (BCID-GP) and gram negative (BCID-GN) organisms. This nucleic acid amplification test detects microbial DNA in positive blood culture broth. This assay has been cleared by the [place] Food and Drug Administration and its performance characteristics have been verified by the [facility] Microbiology Laboratory. For questions about this culture, contact the Microbiology Laboratory at [phone]. Interpretive data was last revised on 24. Nikki Orlando BANK ADVISOR LAB MICROBIOLOGY - G ENERAL ORDERABLES Final Result MINERVA ANDREWS [facility] Department [place] [address] * Blood culture Blood Antecubital, left (05/02/2024 9:46 PM RUG SIZER) Report Final Report: No growth Blood (Antecubital, left) 05/02/2024 9:46 PM RUG SIZER 05/02/2024 9:57 PM RUG SIZER Narrative [facility]A [facility] - 05/07/2024 3:11 PM RUG SIZER Draw Blood cultures before administration of Antibiotics Collection->Peripheral 1. Blood cultures are incubated for 4 days on a continuously monitored blood culture system. The first report of a negative culture is issued within 24 hours of receipt of the specimen in the laboratory. 2. Positive culture results are reported as soon as they are detected. 3. The most important factor for detection of microbes in the setting of bloodstream infection is the volume of blood submitted for culture. Failure to collect an optimal blood volume can result in false negative blood cultures. 4. For pediatric patients, the recommended blood volume to collect follows a weight based strategy. See the electronic test catalog for collection instructions. 5. For positive blood cultures, a rapid molecular test may be performed for organism identification using the danna ePlex blood culture identification panel for gram positive (BCID-GP) and gram negative (BCID-GN) organisms. This nucleic acid amplification test detects microbial DNA in positive blood culture broth. This assay has been cleared by the [place] Food and Drug Administration and its performance characteristics have been verified by the [facility]biology Laboratory. For questions about this culture, contact the Microbiology Laboratory at [phone]. Interpretive data was last revised on 24. Nikki Orlando NP LAB MICROBIOLOGY - G ENERAL ORDERABLES Final Result Performing Organization Address [facility] Co de Phone Number [facility]A [facility] [place] [address] * (ABNORMAL) ECG 12-LEAD (05/02/2024 9:18 PM RUG SIZER) Narrative [facility] - 05/02/2024 9:18 PM RUG SIZER Yadiel Nash MD 05/02/2024 9:19 PM ECG 12 lead Date/Time: 05/02/2024 9:18 PM Performed by: Yadiel Nash MD Authorized by: Nikki Orlando NP Rate: ECG rate: 85 Rhythm: Rhythm: sinus rhythm Ectopy: Ectopy: none QRS: QRS axis: Right QRS intervals: Normal Conduction: Conduction: normal ST segments: ST segments: Non-specific T waves: T waves: peaked Previous ECG: Previous ECG: Unavailable Interpretation: Interpretation: abnormal Nikki Orlando BANK ADVISOR ECG ORDERABLES Corine l Result Performing Organization Address [facility] Co de Phone Number [facility] * Troponin I high-sensitivity series (baseline, 2hr, 4hr, 6hr) (05/02/2024 9:15 PM RUG SIZER) Trop I hs 12 <=17 ng/L Comment: Interpretive Data For further hscTnI resources including the diagnostic algorithm and an aid in interpretation, copy and paste this link: https://bjhlab.testcatalog.org/show/hsTrop-[email or web address] Current Interpretive Data last revised 2019. Blood 05/02/2024 9:15 PM RUG SIZER 05/02/2024 9:26 PM RUG SIZER Nikki Orlando NP LAB BLOOD ORDERABLES Final Result [facility] [place] [address] * Critical Result Callback Chemistry (05/02/2024 9:15 PM RUG SIZER) Date Notified 20240502 Time Notified 2203 [facility] TestName Potassium Plas [facility]A ANDREWS Called/Read Back Quyen ANDREWS Credentials MD MINERVA ANDREWS Called By CANDIDA MOORE Blood 05/02/2024 9:15 PM RUG SIZER 05/02/2024 9:26 PM RUG SIZER us Nikki Orlando NP LAB BLOOD ORDERABLES Final Result Performing Organization Address City/[facility]/ZIP Co de Phone Number MINERVA [facility] Department [place] [address] * Critical Result Callback Chemistry (05/02/2024 9:15 PM RUG SIZER) Date Notified 20240502 Time Notified 2132 [facility] TestName HCO3 Heriberto (Calc) MINERVA ANDREWS Called/Read Back Quyen MOORE Credentials MD MINERVA MOORE Called By MARION MOORE Blood 05/02/2024 9:15 PM RUG SIZER 05/02/2024 9:25 PM RUG SIZER us Nikki Orlando NP LAB BLOOD ORDERABLES Final Result [facility] [place] [address] * Thyroid Function [place] (05/02/2024 9:15 PM RUG SIZER) TSH 2.92 0.30 - 4.20 mcIUnit/mL Blood 05/02/2024 9:15 PM RUG SIZER 05/02/2024 9:26 PM RUG SIZER Jayesh Hutchins MD LAB BLOOD ORDERABLES Final R esult Performing Organization Address [facility] Co de Phone Number [facility] [place] [address] * Type and screen (05/02/2024 9:15 PM RUG SIZER) ABO Rh O Positive Zackary, indirect Negative [facility] Blood 05/02/2024 9:15 PM RUG SIZER 05/02/2024 9:33 PM RUG SIZER Narrative [facility] - 05/02/2024 10:20 PM RUG SIZER Has the patient had Daratumumab or Isatuximab in the past 6 months?->Unknown Nikki Orlando NP LAB BLOOD BANK TEST ORDERABLES Final Result Performing Organization Address [facility] Co de Phone Number [facility] [place] [address] * (ABNORMAL) Potassium (05/02/2024 9:15 PM RUG SIZER) Pathologist [facility] Potassium, pl 8.2(C) 3.3 - 4.9 mmol/L Blood 05/02/2024 9:15 PM RUG SIZER 05/02/2024 9:26 PM RUG SIZER Nikki Orlando NP LAB BLOOD ORDERABLES Final Result Performing Organization Address City/[facility] Co de Phone Number [facility] [place] [address] * (ABNORMAL) Blood gas, venous (05/02/2024 9:15 PM RUG SIZER) pH, Venous 7.24(L) 7.32 - 7.43 PCO2, Venous 23(L) 40 - 50 mmHg [facility] PO2, Venous 44 mmHg [facility] Comment: Interpretive Data No Reference Range Established Current Interpretive Data was last revised on 2017. HCO3 Venous, Calculated 10(C) 20 - 30 mmol/L [facility] BE, venous -16 mmol/L [facility] Comment: Interpretive Data No Reference Range Established Current Interpretive Data was last revised on 2017. Blood 05/02/2024 9:15 PM RUG SIZER 05/02/2024 9:25 PM RUG SIZER Nikki Orlando NP LAB BLOOD ORDERABLES Final Result Performing Organization Address City/[facility] Co de Phone Number [facility] Department [place] [address] * (ABNORMAL) eGFR (05/02/2024 8:01 PM RUG SIZER) eGFR 3(L) >=60 mL/min/1. 73 m2 Comment: Interpretive Data Reference Interval Normal >/= 90 mL/min/1.73m2 Mildly decreased* 60 - 89 mL/min/1.73m2 Mildly to moderately decreased 45 - 59 mL/min/1.73m2 Moderately to severely decreased 30 - 44 mL/min/1.73m2 Severely decreased 15 - 29 mL/min/1.73m2 Kidney Failure < 15 mL/min/1.73m2 *Relative to young adult level Estimated glomerular filtration rate is determined by the 2020 CKD-EPI equation recommended by the National Kidney Foundation (A Unifying Approach to GFR Estimation: Recommendations of the NKF-ASK Task Force on Reassessing the Inclusion of Race in Diagnosing Kidney Disease, JASN 2020). The CKD-EPI equation should not be used for patients with unstable renal function and has not been validated in children and those over 70. Current interpretive data was last reviewed 2021. Blood 05/02/2024 8:01 PM RUG SIZER 05/02/2024 8:10 PM RUG SIZER Nikki Orlando NP LAB BLOOD ORDERABLES Final Result Performing Organization Address [facility] Co de Phone Number [facility] [place] [address] * (ABNORMAL) Differential, auto (05/02/2024 8:01 PM RUG SIZER) Neutrophil abs 13.2(H) 1.5 - 6.5 K/cumm Imm gran abs 0.8(H) 0.0 - 0.1 K/cumm [facility] Lymphocyte abs 1.3 0.8 - 3.3 K/cumm [facility] Monocyte abs 1.0(H) 0.2 - 0.8 K/cumm [facility] Eosinophil abs 0.0 0.0 - 0.5 K/cumm [facility] Basophil abs 0.0 0.0 - 0.1 K/[facility]umm [facility] Neutrophil pct 80.8 % [facility] Comment: Interpretive Data Percent cell count reference ranges are not reported, since discordance with absolute values may lead to misinterpretation of CBC data. Current Interpretive Data was last revised on 2017. Imm gran pct 5.0 % [facility] Comment: Interpretive Data Percent cell count reference ranges are not reported, since discordance with absolute values may lead to misinterpretation of CBC data. Current Interpretive Data was last revised on 2017. Lymphocyte pct 7.8 % [facility] Comment: Interpretive Data Percent cell count reference ranges are not reported, since discordance with absolute values may lead to misinterpretation of CBC data. Current Interpretive Data was last revised on 2017. Monocyte pct 6.3 % [facility] Comment: Interpretive Data Percent cell count reference ranges are not reported, since discordance with absolute values may lead to misinterpretation of CBC data. Current Interpretive Data was last revised on 2017. Eosinophil pct 0.0 % [facility] Comment: Interpretive Data Percent cell count reference ranges are not reported, since discordance with absolute values may lead to misinterpretation of CBC data. Current Interpretive Data was last revised on 2017. Basophil pct 0.1 % [facility] Comment: Interpretive Data Percent cell count reference ranges are not reported, since discordance with absolute values may lead to misinterpretation of CBC data. Current Interpretive Data was last revised on 2017. Blood 05/02/2024 8:01 PM RUG SIZER 05/02/2024 8:09 PM RUG SIZER Nikki Orlando NP LAB BLOOD ORDERABLES Final Result Performing Organization Address City/[facility]/ZIP Co de Phone Number [facility] [place] [address] * Critical Result Callback Chemistry (05/02/2024 8:01 PM RUG SIZER) Date Notified [id number] Time Notified 2038 [facility] TestName Potassium Plas and Anion Gap [facility] Called/Read Back Nikki [facility] Credentials BANK ADVISOR [facility] Called By MARION [facility] Blood 05/02/2024 8:01 PM RUG SIZER 05/02/2024 8:10 PM RUG SIZER us Nikki Orlando NP LAB BLOOD ORDERABLES Final Result Performing Organization Address [facility] Co de Phone Number [facility] [place] [address] * (ABNORMAL) Iron profile w/ IBC (05/02/2024 8:01 PM RUG SIZER) Pathologist [facility] Iron 193(H) 35 - 145 mcg/dL TIBC 237(L) 250 - 400 mcg/dL [facility] Transferrin saturation 81(H) 20 - 50 % [facility] Blood 05/02/2024 8:01 PM RUG SIZER 05/02/2024 8:10 PM RUG SIZER Nikki Orlando NP LAB BLOOD ORDERABLES Final Result Performing Organization Address City/[facility]/ZIP Co [place] [address] * (ABNORMAL) CBC with auto differential (05/02/2024 8:01 PM RUG SIZER) WBC 16.3(H) 3.8 - 9.9 K/cumm Hgb 5.7(C) 11.9 - 15.5 g/dL [facility] Comment:Critical result call ed to and read back by PEDRO VALDIVIA RN on 05 02 2024 at 2021 to Caty Rincon. Hct 18.1(L) 35.6 - 45.5 % [facility] Plt 367 150 - 400 K/cumm [facility] MPV 9.4 9.1 - 12.3 fL [facility] RBC 1.93(L) 3.90 - 5.20 M/cumm [facility] MCV 93.8 81.3 - 96.4 fL [facility] MCH 29.5 27.1 - 33.3 pg [facility] MCHC 31.5(L) 32.3 - 35.7 g/dL [facility] RDW CV 13.2 11.1 - 14.9 % [facility] RDW SD 45.5 35.7 - 48.1 fL [facility] NRBC abs 0.04(H) 0.00 - 0.01 K/cumm [facility] Blood 05/02/2024 8:01 PM RUG SIZER 05/02/2024 8:09 PM RUG SIZER Nikki Orlando NP LAB BLOOD ORDERABLES Final Result Performing Organization Address [facility] Co de Phone Number [facility] [place] [address] * (ABNORMAL) Magnesium (05/02/2024 8:01 PM RUG SIZER) Pathologist [facility] Magnesium 2.9(H) 1.4 - 2.5 mg/dL Blood 05/02/2024 8:01 PM RUG SIZER 05/02/2024 8:10 PM RUG SIZER Nikki Orlando NP LAB BLOOD ORDERABLES Final Result Performing Organization Address [facility] Co de Phone Number [facility] Department [place] [address] * (ABNORMAL) Ferritin (05/02/2024 8:01 PM RUG SIZER) Ferritin 320(H) 13 - 150 ng/mL Blood 05/02/2024 8:01 PM RUG SIZER 05/02/2024 8:10 PM RUG SIZER Nikki Orlando BANK ADVISOR LAB BLOOD ORDERABLES Final Result [facility] [place] [address] * (ABNORMAL) Comprehensive metabolic panel (05/02/2024 8:01 PM RUG SIZER) Pathologist [facility] Sodium 131(L) 135 - 145 mmol/L Potassium, pl 8.2(C) 3.3 - 4.9 mmol/L [facility] Chloride 89(L) 97 - 110 mmol/L [facility] CO2 13(L) 22 - 32 mmol/L [facility] Anion gap 29(C) 2 - 15 mmol/L [facility] BUN 83(H) 6 - 25 mg/dL [facility] Creatinine 13.72(H) 0.60 - 1.10 mg/dL [facility] Glucose 115 70 - 199 mg/dL [facility] Comment: Interpretive Data Fasting glucose >/= 126 mg/dl is diagnostic for diabetes. Fasting is defined as no caloric intake for at least 8 hours. Fasting glucose between 100 mg/dl to 125 mg/dl is diagnostic of prediabetes. In a patient with classic symptoms of hyperglycemia or hyperglycemic crisis, a random glucose >/= 200 mg/dl is diagnostic for diabetes. In the absence of unequivocal hyperglycemia, results should be confirmed by repeat testing. The classification and Diagnosis of Diabetes Diabetes Care 2021; 46: S19-S40. Current interpretive data was last revised 2022. Calcium 9.4 8.5 - 10.3 mg/dL [facility] Bilirubin, total <0.2 0.1 - 1.2 mg/dL [facility] Protein, pl 5.7(L) 6.5 - 8.5 g/dL [facility] Albumin 3.1(L) 3.5 - 5.0 g/dL [facility] Alk phos 110 40 - 130 Units/L [facility] ALT 20 7 - 45 Units/L [facility] AST 20 10 - 45 Units/L [facility] Blood 05/02/2024 8:01 PM RUG SIZER 05/02/2024 8:10 PM RUG SIZER Nikki Orlando NP LAB BLOOD ORDERABLES Final Result [facility] [place] [address] from Last 3 Months Insurance [facility] CHOICE PLUS TRANSPLANT [facility] [employer] [facility] Advance Directives For more information, please contact: [phone] * Full Code (Latest Code Status on File) Date Activated Date Inactivated Comments 05/03/2024 2:16 AM 05/14/2024 1:09 AM * Full Code Date Activated Date Inactivated Comments 08/12/2019 3:28 AM 08/12/2019 7:14 PM Healthcare Agents on File Name Relationship Healthcare Agent Relationshi p Communication [place] Cui Spouse Health Care Agent Care 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
--- OUTSIDE RECORDS SUMMARY | 2024-07-25 06:54 | XMS_ITS | Clinical Summary ---
Author Organization [facility] [address] [place] [address] Care Team Providers Care Environmental Sampler Name Role Phone León Varela MD Primary Care Provider [phone] Roger Morales MD Unavailable [phone] Disha Gutierrez MD Unavailable [phone] Allergies Active Allergy Reactions Criticality Noted Date [...] (08/13/2019): Added automatically from request for surgery [id number] Left nephrolithiasis 08/11/2019 Overview (08/11/2019): Added automatically from request for surgery [id number] Encounters Date Type Department Care Team Description 07/18/2024 2:10 PM CDT Office Visit [facility] [address] [facility] 12th [place] [address] [place] [address] 07/18/2024 1:45 PM CDT Office Visit [facility] [address] [facility] 12th [place] [address] [place] [address] Carmelo Brown MD PhD ESRD (end stage renal disease) (HCC) (Primary Dx) 06/18/2024 Telephone [facility] Transplant Kidney [address] [facility] [address] [phone] [place] [address] Hoda Heredia RN 06/07/2024 Telephone [facility] [address] [facility] 12th [place] [address] [place] [address] Carmelo Brown MD PhD 06/07/2024 Telephone [facility] [address] [facility] 12th [place] [address] [place] [address] Carmelo Brown MD PhD 06/05/2024 Telephone [facility] [address] [facility] 12[address] [place] [address] [place] [address] Carmelo Brown MD PhD 05/31/2024 Telephone [facility] Transplant Kidney [address] [facility] [phone] [place] [address] Kati Colón 05/30/2024 Telephone [facility] Transplant Kidney [address] [facility] [phone] [place] [address] Kati Colón 05/20/2024 Telephone [facility] Transplant Kidney [address] [facility] [phone] [place] [address] Kati Colón 05/20/2024 Telephone [facility] Transplant Kidney [address] [facility] [address] [phone] [place] [address] Kati Colón 05/17/2024 SHOP/CHAP Initial Outreach [facility] OP CASE MANAGEMENT [address] [place] [address] Kiya Lawson, PERMIT SPECIALIST 05/15/2024 SHOP/CHAP Initial Outreach [facility] OP CASE MANAGEMENT [address] [place] [address] Kiya Lawson, PERMIT SPECIALIST 05/14/2024 SHOP/CHAP Initial Outreach [facility] OP CASE MANAGEMENT [address] [place] [address] Kiya Lawson, PERMIT SPECIALIST 05/14/2024 SHOP/CHAP Initial Eligibility Review [facility] OP CASE MANAGEMENT [address] [place] [address] Kiya Lawson, PERMIT SPECIALIST 05/09/2024 10:20 AM SEARCH MARKETING ANALYST Ancillary Procedure [facility] Vascular Lab IP [address] [facility] [address] [place] [address] 05/08/2024 Telephone [facility] Transplant Kidney [address] [facility] [address] [phone] [place] [address] Yasmine Jimenez Referral - Kidney Txp 05/06/2024 12:15 PM SEARCH MARKETING ANALYST Ancillary Procedure [facility] IP [address] [facility] [address] [place] [address] 05/03/2024 8:40 AM SEARCH MARKETING ANALYST Ancillary Procedure [facility] IP 1 [facility] [address] [place] [address] 05/02/2024 6:54 PM SEARCH MARKETING ANALYST - 05/13/2024 8:00 PM SEARCH MARKETING ANALYST Hospital Encounter [facility] [address] [place] [id number] Jayesh Hutchins MD Kollef, MD Blake Nino, MD Brennen To, Tristan Fenton MD Hyperkalemia (Primary Dx); Pain in both lower extremities; Leg numbness Discharge Disposition: Discharge to home or self care from Last 3 Months Surgical History Surgery Date Site/Laterality Comments URETEROSCOPY 08/11/2019 Left WITHSTENT COLONOSCOPY ESOPHAGOGASTRODUODENOSCOPY TUBAL LIGATION LAPAROSCOPIC CHOLECYSTECTOMY DILATION AND CURETTAGE OF UTERUS X4 ABLATION UTERINE CHOLECYSTECTOMY TUBAL LIGATION Bilateral TUNNELED LINE PLACEMENT > 5 YEARS 05/10/2024 N/A Medical History Medical History Date Comments Chronic bronchitis (HCC) Hyperlipidemia Type 2 diabetes mellitus (HCC) Asthma Chronic kidney disease (CKD) Family History Medical History Relation Name Comments ESKD Requiring Dialysis Maternal Grandmother No Known Problems Mother Bleeding Disorder Neg Hx Clotting disorder Neg Hx Heart attack Neg Hx Malig Hyperthermia Neg Hx Pseudochol deficiency Neg Hx Stroke Neg Hx Sudden Cardiac Neg Hx Relation Name Status Comments Maternal Grandmother Mother Social History Tobacco Use Types Packs/Day Years [...] on file Legal Sex Female 7:24 PM SEARCH MARKETING ANALYST Gender Identity Not on file Sexual Orientation Not on file Obstetrics History Last Filed Vital Signs Vital Sign Reading Time Taken Comments Blood Pressure 87/44 07/18/2024 2:05 PM CDT Pulse 94 07/18/2024 2:05 PM CDT Temperature 36.4 C (97.6 F) 07/18/2024 2:05 PM CDT Respiratory Rate 18 05/13/2024 6:30 PM SEARCH MARKETING ANALYST Oxygen Saturation 100% 05/13/2024 9:24 AM SEARCH MARKETING ANALYST Inhaled Oxygen Concentration - - Weight 56.2 kg (124 lb) 07/18/2024 2:05 PM CDT Height 152.4 cm (5') 07/18/2024 2:05 PM CDT Body Mass Index 24.22 07/18/2024 2:05 PM CDT Plan of Treatment Health Maintenance Due Date Last Done Comments Albumin Creatinine Ratio, Urine 1966 Breast Cancer Screening-Mammogram 1966 Cervical Cancer Screening 1966 Colon Cancer Screening-Colonoscopy 1966 Depression Screening 1966 Dilated Eye Exam 1966 Foot Exam 1966 Lipid Panel 1966 DTaP/Tdap/Td Vaccine (1 - Tdap) 1977 Regular Well Visit/Exam 18-64 1984 Pneumococcal vaccine <65 (1 of 2 - PCV) 1985 Zoster Vaccine (1 of 2) 2016 Hemoglobin A1C 10/31/2024 05/03/2024 Influenza Vaccine (Season Ended) 2024 eGFR 05/12/2025 05/12/2024, 04/21, 05/10/2024, Additional history exists Hepatitis B Screening Completed 05/03/2024 Hepatitis C Screening Completed 05/03/2024 Medical Devices Implanted Type Area Peritoneal Dialysis Registered Nurse Device Identifier Shelf Expiration Date Model / Serial / Lot [employer]low Embosafe 15.5fr 24cm Basic 2 Lumen Kit Catheter [id number] - [id number] Implanted:Qty: 1 on 05/10/2024 by Palomo Guzmán MD at [facility] [employer] 05/17/2026 [id number] 15 / / [id number] Explanted Type Area Peritoneal Dialysis Registered Nurse Device Identifier Shelf Expiration Date Model / Serial / Lot [employer] [id number] Inlay [place] 6fr 24cm Pusher Fluoro Marker Atraumatic Insertion Latex Free - Sn/A - [id number] Implanted:Qty: 1 on 08/11/2019 by Zenaida Romero MD at [facility] Explanted:Qty: 1 on 09/04/2019 at [facility] Stent Left: Ureter [employer] [id number] 07/26/2023 [id number] / N/A / [id number] Procedures Procedure Name Priority Date/Time Associated Diagnosis Comments POCUS DUPLEX BILATERAL VESSEL MAPPING FOR HD ACCESS Schedule Routine, Read Routine (OP Routine) 07/18/2024 2:08 PM CDT ESRD (end stage renal disease) (HCC) POCT GLUCOSE DEVICE Routine 05/13/2024 6 :09 PM SEARCH MARKETING ANALYST POCT GLUCOSE DEVICE Routine 05/13/2024 1 1:01 AM SEARCH MARKETING ANALYST HEMODIALYSIS Routine 05/13/2024 8:54 AM SEARCH MARKETING ANALYST POCT GLUCOSE DEVICE Routine 05/13/2024 7 :52 AM SEARCH MARKETING ANALYST EGFR Routine 05/12/2024 8:57 PM SEARCH MARKETING ANALYST DIFFERENTIAL AUTO Routine 05/12/2024 8:5 7 PM SEARCH MARKETING ANALYST TYPE AND SCREEN Timed 05/12/2024 8:57 PM SEARCH MARKETING ANALYST PHOSPHORUS Routine 05/12/2024 8:57 PM SEARCH MARKETING ANALYST MAGNESIUM Routine 05/12/2024 8:57 PM SEARCH MARKETING ANALYST CBC WITH AUTO DIFFERENTIAL Routine 05/12/2024 8:57 PM SEARCH MARKETING ANALYST BASIC METABOLIC PANEL Routine 05/12/2024 8:57 PM SEARCH MARKETING ANALYST POCT GLUCOSE DEVICE Routine 05/12/2024 7 :41 PM SEARCH MARKETING ANALYST POCT GLUCOSE DEVICE Routine 05/12/2024 5 :39 PM SEARCH MARKETING ANALYST POCT GLUCOSE DEVICE Routine 05/12/2024 1 2:10 PM SEARCH MARKETING ANALYST POCT GLUCOSE DEVICE Routine 05/12/2024 8 :30 AM SEARCH MARKETING ANALYST DIFFERENTIAL AUTO Routine 05/11/2024 10: 31 PM SEARCH MARKETING ANALYST CBC WITH AUTO DIFFERENTIAL Routine 05/11/2024 10:31 PM SEARCH MARKETING ANALYST EGFR Routine 05/11/2024 8:42 PM SEARCH MARKETING ANALYST PHOSPHORUS Routine 05/11/2024 8:42 PM SEARCH MARKETING ANALYST MAGNESIUM Routine 05/11/2024 8:42 PM SEARCH MARKETING ANALYST BASIC METABOLIC PANEL Routine 05/11/2024 8:42 PM SEARCH MARKETING ANALYST POCT GLUCOSE DEVICE Routine 05/11/2024 7 :41 PM SEARCH MARKETING ANALYST POCT GLUCOSE DEVICE Routine 05/11/2024 4 :38 PM SEARCH MARKETING ANALYST POCT GLUCOSE DEVICE Routine 05/11/2024 1 1:45 AM SEARCH MARKETING ANALYST POCT GLUCOSE DEVICE Routine 05/11/2024 9 :19 AM SEARCH MARKETING ANALYST EGFR Routine 05/10/2024 9:54 PM SEARCH MARKETING ANALYST DIFFERENTIAL AUTO Routine 05/10/2024 9:5 4 PM SEARCH MARKETING ANALYST PHOSPHORUS Routine 05/10/2024 9:54 PM SEARCH MARKETING ANALYST MAGNESIUM Routine 05/10/2024 9:54 PM SEARCH MARKETING ANALYST CBC WITH AUTO DIFFERENTIAL Routine 05/10/2024 9:54 PM SEARCH MARKETING ANALYST BASIC METABOLIC PANEL Routine 05/10/2024 9:54 PM SEARCH MARKETING ANALYST POCT GLUCOSE DEVICE Routine 05/10/2024 8 :10 PM SEARCH MARKETING ANALYST HEMODIALYSIS Routine 05/10/2024 12:00 PM SEARCH MARKETING ANALYST POCT GLUCOSE DEVICE Routine 05/10/2024 1 1:35 AM SEARCH MARKETING ANALYST TUNNELED LINE PLACEMENT > 5 YEARS IP Routine 05/10/2024 10:09 AM SEARCH MARKETING ANALYST POCT GLUCOSE DEVICE Routine 05/10/2024 7 :20 AM SEARCH MARKETING ANALYST POCT GLUCOSE DEVICE Routine 05/10/2024 4 :03 AM SEARCH MARKETING ANALYST EGFR Routine 05/09/2024 9:55 PM SEARCH MARKETING ANALYST DIFFERENTIAL AUTO Routine 05/09/2024 9:5 5 PM SEARCH MARKETING ANALYST PHOSPHORUS Routine 05/09/2024 9:55 PM SEARCH MARKETING ANALYST MAGNESIUM Routine 05/09/2024 9:55 PM SEARCH MARKETING ANALYST CBC WITH AUTO DIFFERENTIAL Routine 05/09/2024 9:55 PM SEARCH MARKETING ANALYST BASIC METABOLIC PANEL Routine 05/09/2024 9:55 PM SEARCH MARKETING ANALYST POCT GLUCOSE DEVICE Routine 05/09/2024 8 :07 PM SEARCH MARKETING ANALYST POCT GLUCOSE DEVICE Routine 05/09/2024 5 :07 PM SEARCH MARKETING ANALYST POCT GLUCOSE DEVICE Routine 05/09/2024 1 2:11 PM SEARCH MARKETING ANALYST US VEIN MAPPING DUPLEX UPPER EXTREMITY BILATERAL IP Routine 05/09/2024 11:33 AM SEARCH MARKETING ANALYST POCT GLUCOSE DEVICE Routine 05/09/2024 7 :11 AM SEARCH MARKETING ANALYST POCT GLUCOSE DEVICE Routine 05/08/2024 8 :19 PM SEARCH MARKETING ANALYST HEMODIALYSIS Routine 05/08/2024 5:26 PM SEARCH MARKETING ANALYST POCT GLUCOSE DEVICE Routine 05/08/2024 5 :16 PM SEARCH MARKETING ANALYST POCT GLUCOSE DEVICE Routine 05/08/2024 1 1:04 AM SEARCH MARKETING ANALYST POCT GLUCOSE DEVICE Routine 05/08/2024 7 :29 AM SEARCH MARKETING ANALYST EGFR Routine 05/08/2024 5:11 AM SEARCH MARKETING ANALYST DIFFERENTIAL AUTO Routine 05/08/2024 5:1 1 AM SEARCH MARKETING ANALYST PHOSPHORUS Routine 05/08/2024 5:11 AM SEARCH MARKETING ANALYST MAGNESIUM Routine 05/08/2024 5:11 AM SEARCH MARKETING ANALYST BASIC METABOLIC PANEL Routine 05/08/2024 5:11 AM SEARCH MARKETING ANALYST CBC WITH AUTO DIFFERENTIAL Routine 05/08/2024 5:11 AM SEARCH MARKETING ANALYST POCT GLUCOSE DEVICE Routine 05/07/2024 8 :37 PM SEARCH MARKETING ANALYST POCT GLUCOSE DEVICE Routine 05/07/2024 3 :07 PM SEARCH MARKETING ANALYST HEMODIALYSIS Routine 05/07/2024 11:55 AM SEARCH MARKETING ANALYST POCT GLUCOSE DEVICE Routine 05/07/2024 1 1:08 AM SEARCH MARKETING ANALYST POCT GLUCOSE DEVICE Routine 05/07/2024 7 :28 AM SEARCH MARKETING ANALYST EGFR Routine 05/07/2024 4:14 AM SEARCH MARKETING ANALYST DIFFERENTIAL AUTO Routine 05/07/2024 4:1 4 AM SEARCH MARKETING ANALYST PHOSPHORUS Routine 05/07/2024 4:14 AM SEARCH MARKETING ANALYST MAGNESIUM Routine 05/07/2024 4:14 AM SEARCH MARKETING ANALYST BASIC METABOLIC PANEL Routine 05/07/2024 4:14 AM SEARCH MARKETING ANALYST CBC WITH AUTO DIFFERENTIAL Routine 05/07/2024 4:14 AM SEARCH MARKETING ANALYST POCT GLUCOSE DEVICE Routine 05/06/2024 7 :53 PM SEARCH MARKETING ANALYST POCT GLUCOSE DEVICE Routine 05/06/2024 5 :55 PM SEARCH MARKETING ANALYST US VEIN DUPLEX LOWER EXTREMITY BILATERAL COMPLETE IP Routine 05/06/2024 2:05 PM SEARCH MARKETING ANALYST POCT GLUCOSE DEVICE Routine 05/06/2024 1 1:42 AM SEARCH MARKETING ANALYST POCT GLUCOSE DEVICE Routine 05/06/2024 7 :36 AM SEARCH MARKETING ANALYST EGFR Routine 05/06/2024 4:38 AM SEARCH MARKETING ANALYST DIFFERENTIAL AUTO Routine 05/06/2024 4:3 8 AM SEARCH MARKETING ANALYST PHOSPHORUS Routine 05/06/2024 4:38 AM SEARCH MARKETING ANALYST MAGNESIUM Routine 05/06/2024 4:38 AM SEARCH MARKETING ANALYST BASIC METABOLIC PANEL Routine 05/06/2024 4:38 AM SEARCH MARKETING ANALYST CBC WITH AUTO DIFFERENTIAL Routine 05/06/2024 4:38 AM SEARCH MARKETING ANALYST POCT GLUCOSE DEVICE Routine 05/05/2024 8 :39 PM SEARCH MARKETING ANALYST POCT GLUCOSE DEVICE Routine 05/05/2024 4 :48 PM SEARCH MARKETING ANALYST POCT GLUCOSE DEVICE Routine 05/05/2024 1 2:27 PM SEARCH MARKETING ANALYST POCT GLUCOSE DEVICE Routine 05/05/2024 8 :14 AM SEARCH MARKETING ANALYST EGFR Routine 05/05/2024 6:13 AM SEARCH MARKETING ANALYST DIFFERENTIAL AUTO Routine 05/05/2024 6:1 3 AM SEARCH MARKETING ANALYST PHOSPHORUS Routine 05/05/2024 6:13 AM SEARCH MARKETING ANALYST MAGNESIUM Routine 05/05/2024 6:13 AM SEARCH MARKETING ANALYST BASIC METABOLIC PANEL Routine 05/05/2024 6:13 AM SEARCH MARKETING ANALYST CBC WITH AUTO DIFFERENTIAL Routine 05/05/2024 6:13 AM SEARCH MARKETING ANALYST HEPATITIS B CORE ANTIBODY, TOTAL Routine 05/05/2024 6:13 AM SEARCH MARKETING ANALYST POCT GLUCOSE DEVICE Routine 05/04/2024 1 1:33 PM SEARCH MARKETING ANALYST BLOOD CULTURE Routine 05/04/2024 9:54 PM SEARCH MARKETING ANALYST BLOOD CULTURE Routine 05/04/2024 9:54 PM SEARCH MARKETING ANALYST RESPIRATORY PATHOGEN PANEL Routine 05/04/2024 9:54 PM SEARCH MARKETING ANALYST XR CHEST 1 VIEW ED Urgent/IP Urgent 05/04/2024 9:16 PM SEARCH MARKETING ANALYST POCT GLUCOSE DEVICE Routine 05/04/2024 8 :28 PM SEARCH MARKETING ANALYST POCT GLUCOSE DEVICE Routine 05/04/2024 4 :40 PM SEARCH MARKETING ANALYST POCT GLUCOSE DEVICE Routine 05/04/2024 2 :39 PM SEARCH MARKETING ANALYST POCT GLUCOSE DEVICE Routine 05/04/2024 1 2:25 PM SEARCH MARKETING ANALYST HEMODIALYSIS Routine 05/04/2024 11:05 AM SEARCH MARKETING ANALYST EGFR Timed 05/04/2024 10:45 AM SEARCH MARKETING ANALYST DIFFERENTIAL AUTO Timed 05/04/2024 10: 45 AM SEARCH MARKETING ANALYST CBC WITH AUTO DIFFERENTIAL Timed 05/04/2024 10:45 AM SEARCH MARKETING ANALYST MAGNESIUM Timed 05/04/2024 10:45 AM SEARCH MARKETING ANALYST PHOSPHORUS Timed 05/04/2024 10:45 AM SEARCH MARKETING ANALYST BASIC METABOLIC PANEL Timed 05/04/2024 10:45 AM SEARCH MARKETING ANALYST POCT GLUCOSE DEVICE Routine 05/04/2024 8 :18 AM SEARCH MARKETING ANALYST EGFR Timed 05/03/2024 11:05 PM SEARCH MARKETING ANALYST MAGNESIUM Timed 05/03/2024 11:05 PM SEARCH MARKETING ANALYST PHOSPHORUS Timed 05/03/2024 11:05 PM SEARCH MARKETING ANALYST BASIC METABOLIC PANEL Timed 05/03/2024 11:05 PM SEARCH MARKETING ANALYST POCT GLUCOSE DEVICE Routine 05/03/2024 8 :27 PM SEARCH MARKETING ANALYST HEMOGLOBIN AND HEMATOCRIT Timed 05/03/2024 5:05 PM SEARCH MARKETING ANALYST EGFR Timed 05/03/2024 4:13 PM SEARCH MARKETING ANALYST MAGNESIUM Timed 05/03/2024 4:13 PM SEARCH MARKETING ANALYST PHOSPHORUS Timed 05/03/2024 4:13 PM SEARCH MARKETING ANALYST BASIC METABOLIC PANEL Timed 05/03/2024 4:13 PM SEARCH MARKETING ANALYST POCT GLUCOSE DEVICE Routine 05/03/2024 3 :57 PM SEARCH MARKETING ANALYST TRANSFUSE RED BLOOD CELLS Timed 05/03/2024 3:00 PM SEARCH MARKETING ANALYST PREPARE RBC Timed 05/03/2024 1:35 PM SEARCH MARKETING ANALYST DIFFERENTIAL AUTO STAT 05/03/2024 12: 51 PM SEARCH MARKETING ANALYST CBC WITH AUTO DIFFERENTIAL STAT 05/03/2024 12:51 PM SEARCH MARKETING ANALYST POTASSIUM LEVEL Timed 05/03/2024 12:51 PM SEARCH MARKETING ANALYST POCT GLUCOSE DEVICE Routine 05/03/2024 1 1:38 AM SEARCH MARKETING ANALYST US VEIN DUPLEX UPPER EXTREMITY BILATERAL COMPLETE ED Urgent/IP Urgent 05/03/2024 11:31 AM SEARCH MARKETING ANALYST TRANSTHORACIC ECHO (TTE) COMPLETE W DOPPLER/CF W CONTRAST ED Urgent/IP Urgent 05/03/2024 10:20 AM SEARCH MARKETING ANALYST POCT GLUCOSE DEVICE Routine 05/03/2024 9 :53 AM SEARCH MARKETING ANALYST POCT GLUCOSE DEVICE Routine 05/03/2024 9 :01 AM SEARCH MARKETING ANALYST CBC WITH AUTO DIFFERENTIAL Routine 05/03/2024 8:29 AM SEARCH MARKETING ANALYST DIFFERENTIAL AUTO Routine 05/03/2024 8:2 9 AM SEARCH MARKETING ANALYST CRITICAL RESULT CALLBACK CHEMISTRY Timed 05/03/2024 8:29 AM SEARCH MARKETING ANALYST EGFR Timed 05/03/2024 8:29 AM SEARCH MARKETING ANALYST LACTATE DEHYDROGENASE Timed 05/03/2024 8:29 AM SEARCH MARKETING ANALYST MAGNESIUM Timed 05/03/2024 8:29 AM SEARCH MARKETING ANALYST PHOSPHORUS Timed 05/03/2024 8:29 AM SEARCH MARKETING ANALYST BASIC METABOLIC PANEL Timed 05/03/2024 8:29 AM SEARCH MARKETING ANALYST RETICULOCYTES Routine 05/03/2024 8:29 AM SEARCH MARKETING ANALYST POCT GLUCOSE DEVICE Routine 05/03/2024 8 :21 AM SEARCH MARKETING ANALYST CHLORIDE, URINE, RANDOM STAT 05/03/2024 5:15 AM SEARCH MARKETING ANALYST POTASSIUM, URINE, RANDOM STAT 05/03/2024 5:15 AM SEARCH MARKETING ANALYST SODIUM, URINE, RANDOM STAT 05/03/2024 5:15 AM SEARCH MARKETING ANALYST PROTEIN / CREATININE RATIO, URINE, RANDOM Routine 05/03/2024 5:15 AM SEARCH MARKETING ANALYST TRANSFUSE RED BLOOD CELLS Timed 05/03/2024 4:45 AM SEARCH MARKETING ANALYST US KIDNEY COMPLETE ED Urgent/IP Urgent 05/03/2024 4:05 AM SEARCH MARKETING ANALYST XR CHEST 1 VIEW Critical/Life-T hreatening 05/03/2024 3:47 AM SEARCH MARKETING ANALYST CRITICAL RESULT CALLBACK CHEMISTRY Timed 05/03/2024 3:22 AM SEARCH MARKETING ANALYST HAPTOGLOBIN Timed 05/03/2024 3:22 AM SEARCH MARKETING ANALYST CRITICAL RESULT CALLBACK CHEMISTRY Routine 05/03/2024 3:22 AM SEARCH MARKETING ANALYST DIFFERENTIAL AUTO Timed 05/03/2024 3:2 2 AM SEARCH MARKETING ANALYST BLOOD GAS, VENOUS Routine 05/03/2024 3:2 2 AM SEARCH MARKETING ANALYST LACTATE, WHOLE BLOOD Routine 05/03/2024 3:22 AM SEARCH MARKETING ANALYST POTASSIUM, WHOLE BLOOD Routine 05/03/2024 3:22 AM SEARCH MARKETING ANALYST CBC WITH AUTO DIFFERENTIAL Timed 05/03/2024 3:22 AM SEARCH MARKETING ANALYST TYPE AND SCREEN Timed 05/03/2024 3:22 AM SEARCH MARKETING ANALYST POTASSIUM LEVEL Timed 05/03/2024 3:22 AM SEARCH MARKETING ANALYST POC BLOOD GAS AND CHEMISTRIES, ARTERIAL Routine 05/03/2024 2:45 AM SEARCH MARKETING ANALYST PTH Routine 05/03/2024 2:36 AM SEARCH MARKETING ANALYST HEMOGLOBIN A1C Routine 05/03/2024 2:36 AM SEARCH MARKETING ANALYST TROPONIN I HIGH-SENSITIVITY 2-HOUR Timed 05/03/2024 2:36 AM SEARCH MARKETING ANALYST HEPATITIS C ANTIBODY Routine 05/03/2024 2:36 AM SEARCH MARKETING ANALYST HIV 1/2 ANTIBODY PLUS P24 ANTIGEN Routine 05/03/2024 2:36 AM SEARCH MARKETING ANALYST HEPATITIS B SURFACE ANTIBODY (IMMUNE STATUS) Routine 05/03/2024 2:36 AM SEARCH MARKETING ANALYST HEPATITIS B SURFACE ANTIGEN Routine 05/03/2024 2:36 AM SEARCH MARKETING ANALYST INFECTION PREVENTION MRSA ONLY (STAPHYLOCOCCUS AUREUS) CULTURE Routine 05/03/2024 2:36 AM SEARCH MARKETING ANALYST FOLATE STAT 05/03/2024 2:33 AM SEARCH MARKETING ANALYST VITAMIN B12 STAT 05/03/2024 2:33 AM SEARCH MARKETING ANALYST EGFR STAT 05/03/2024 2:33 AM SEARCH MARKETING ANALYST CRITICAL RESULT CALLBACK CHEMISTRY STAT 05/03/2024 2:33 AM SEARCH MARKETING ANALYST VITAMIN D 25 HYDROXY Routine 05/03/2024 2:33 AM SEARCH MARKETING ANALYST CHOLESTEROL, LDL, DIRECT Routine 05/03/2024 2:33 AM SEARCH MARKETING ANALYST PRO B-TYPE NATRIURETIC PEPTIDE STAT 05/03/2024 2:33 AM SEARCH MARKETING ANALYST CREATINE KINASE (CK), TOTAL STAT 05/03/2024 2:33 AM SEARCH MARKETING ANALYST CALCIUM, IONIZED STAT 05/03/2024 2:33 AM SEARCH MARKETING ANALYST PHOSPHORUS STAT 05/03/2024 2:33 AM SEARCH MARKETING ANALYST MAGNESIUM STAT 05/03/2024 2:33 AM SEARCH MARKETING ANALYST COMPREHENSIVE METABOLIC PANEL STAT 05/03/2024 2:33 AM SEARCH MARKETING ANALYST POCT GLUCOSE DEVICE Routine 05/03/2024 2 :30 AM SEARCH MARKETING ANALYST ECG 12-LEAD STAT 05/03/2024 2:27 AM SEARCH MARKETING ANALYST PREPARE RBC Timed 05/03/2024 2:17 AM SEARCH MARKETING ANALYST POCT GLUCOSE DEVICE Routine 05/03/2024 1 :47 AM SEARCH MARKETING ANALYST ECG 12-LEAD STAT 05/03/2024 1:42 AM SEARCH MARKETING ANALYST CRITICAL RESULT CALLBACK CHEMISTRY Timed 05/03/2024 1:38 AM SEARCH MARKETING ANALYST POTASSIUM LEVEL Timed 05/03/2024 1:38 AM SEARCH MARKETING ANALYST TROPONIN I HIGH-SENSITIVITY 4-HOUR Timed 05/03/2024 1:38 AM SEARCH MARKETING ANALYST CRITICAL RESULT CALLBACK CHEMISTRY Timed 05/03/2024 12:39 AM SEARCH MARKETING ANALYST PROTIME-INR STAT 05/03/2024 12:39 AM SEARCH MARKETING ANALYST APTT STAT 05/03/2024 12:39 AM SEARCH MARKETING ANALYST POTASSIUM LEVEL Timed 05/03/2024 12:39 AM SEARCH MARKETING ANALYST [place] INSJ NON-TUNNELED CENTRAL VENOUS CATH AGE 5 YR/> Routine 05/03/2024 12:26 AM SEARCH MARKETING ANALYST POCT CREATININE - DEVICE Routine 05/02/2024 11:37 PM SEARCH MARKETING ANALYST POCT GLUCOSE DEVICE Routine 05/02/2024 1 1:33 PM SEARCH MARKETING ANALYST POCT GLUCOSE DEVICE Routine 05/02/2024 1 1:29 PM SEARCH MARKETING ANALYST XR CHEST 1 VIEW ED 05/02/2024 11:25 PM SEARCH MARKETING ANALYST [place] CRITICAL CARE ILL/INJURED PATIENT INIT 30-74 MIN Routine 05/02/2024 11:11 PM SEARCH MARKETING ANALYST CRITICAL RESULT CALLBACK CHEMISTRY STAT 05/02/2024 10:38 PM SEARCH MARKETING ANALYST B CHECK SAMPLE STAT 05/02/2024 10:38 PM SEARCH MARKETING ANALYST POTASSIUM, WHOLE BLOOD STAT 05/02/2024 10:38 PM SEARCH MARKETING ANALYST CRITICAL RESULT CALLBACK CHEMISTRY STAT 05/02/2024 10:23 PM SEARCH MARKETING ANALYST POTASSIUM, WHOLE BLOOD STAT 05/02/2024 10:23 PM SEARCH MARKETING ANALYST HEMODIALYSIS Routine 05/02/2024 10:05 PM SEARCH MARKETING ANALYST POCT GLUCOSE DEVICE Routine 05/02/2024 9 :49 PM SEARCH MARKETING ANALYST BLOOD CULTURE STAT 05/02/2024 9:46 PM SEARCH MARKETING ANALYST BLOOD CULTURE STAT 05/02/2024 9:46 PM SEARCH MARKETING ANALYST ECG 12-LEAD STAT 05/02/2024 9:18 PM SEARCH MARKETING ANALYST CRITICAL RESULT CALLBACK CHEMISTRY Timed 05/02/2024 9:15 PM SEARCH MARKETING ANALYST THYROID FUNCTION CASCADE Timed 05/02/2024 9:15 PM SEARCH MARKETING ANALYST CRITICAL RESULT CALLBACK CHEMISTRY STAT 05/02/2024 9:15 PM SEARCH MARKETING ANALYST TROPONIN I HIGH-SENSITIVITY SERIES (BASELINE, 2HR, 4HR, 6HR) STAT 05/02/2024 9:15 PM SEARCH MARKETING ANALYST BLOOD GAS, VENOUS STAT 05/02/2024 9:1 5 PM SEARCH MARKETING ANALYST POTASSIUM LEVEL Timed 05/02/2024 9:15 PM SEARCH MARKETING ANALYST TYPE AND SCREEN STAT 05/02/2024 9:15 PM SEARCH MARKETING ANALYST IRON PROFILE W/ IBC STAT 05/02/2024 8 :01 PM SEARCH MARKETING ANALYST FERRITIN STAT 05/02/2024 8:01 PM SEARCH MARKETING ANALYST EGFR STAT 05/02/2024 8:01 PM SEARCH MARKETING ANALYST CRITICAL RESULT CALLBACK CHEMISTRY STAT 05/02/2024 8:01 PM SEARCH MARKETING ANALYST DIFFERENTIAL AUTO STAT 05/02/2024 8:0 1 PM SEARCH MARKETING ANALYST MAGNESIUM Routine 05/02/2024 8:01 PM SEARCH MARKETING ANALYST COMPREHENSIVE METABOLIC PANEL STAT 05/02/2024 8:01 PM SEARCH MARKETING ANALYST CBC WITH AUTO DIFFERENTIAL STAT 05/02/2024 8:01 PM SEARCH MARKETING ANALYST from Last 3 Months Results * POCUS Duplex Bilateral Vessel Mapping For HD Access (07/18/2024 2:08 PM CDT) Narrative [email or web address] - 07/18/2024 2:08 PM CDT This procedure was performed and interpreted by the provider. Please refer to the provider's procedure/OR operative note for results. us Carmelo Brown MD PhD POCUS ORDERABLES Final Re sult [email or web address] * POCT glucose (05/13/2024 6:09 PM SEARCH MARKETING ANALYST) Glucose, POC 99 70 - 199 mg/dL Blood 05/13/2024 6:09 PM SEARCH MARKETING ANALYST 05/13/2024 6:09 PM SEARCH MARKETING ANALYST us Tristan Hutton MD LAB POCT ORDERABLES - DEV ICE Final Result [facility] Department [place] [address] * POCT glucose (05/13/2024 11:01 AM SEARCH MARKETING ANALYST) Glucose, POC 102 70 - 199 mg/dL Blood 05/13/2024 11:0 1 AM SEARCH MARKETING ANALYST 05/13/2024 11:01 AM SEARCH MARKETING ANALYST Tristan Hutton MD LAB POCT ORDERABLES - DEV ICE Final Result [facility] [place] [address] * POCT glucose (05/13/2024 7:52 AM SEARCH MARKETING ANALYST) Glucose, POC 100 70 - 199 mg/dL Blood 05/13/2024 7:52 AM SEARCH MARKETING ANALYST 05/13/2024 7:52 AM SEARCH MARKETING ANALYST Tristan Hutton MD LAB POCT ORDERABLES - DEV ICE Final Result Performing Organization Address [facility] de Phone Number [facility] Department [place] [address] * (ABNORMAL) eGFR (05/12/2024 8:57 PM SEARCH MARKETING ANALYST) eGFR 12(L) >=60 mL/min/1. 73 m2 Comment: [...] last reviewed 2021. Blood 05/12/2024 8:57 PM SEARCH MARKETING ANALYST 05/12/2024 9:32 PM SEARCH MARKETING ANALYST Duyen Malloy MD LAB BLOOD ORDERABLES Final Result [facility] Department [place] [address] * (ABNORMAL) Differential, auto (05/12/2024 8:57 PM SEARCH MARKETING ANALYST) Neutrophil abs 8.2(H) 1.5 - 6.5 K/cumm Imm gran abs 0.2(H) 0.0 - 0.1 K/cumm [facility] Lymphocyte abs 2.3 0.8 - 3.3 K/cumm [facility] Monocyte abs 1.6(H) 0.2 - 0.8 K/cumm [facility] Eosinophil abs 0.1 0.0 - 0.5 K/cumm [facility] Basophil abs 0.1 0.0 - 0.1 K/cumm [facility] Neutrophil pct 65.9 % [facility] Comment: Interpretive Data Percent cell count reference ranges are not reported, since discordance with absolute values may lead to misinterpretation of CBC data. Current Interpretive Data was last revised on 2017. Imm gran pct 1.4 % [facility] Comment: Interpretive Data Percent cell count reference ranges are not reported, since discordance with absolute values may lead to misinterpretation of CBC data. Current Interpretive Data was last revised on 2017. Lymphocyte pct 18.7 % [facility] Comment: Interpretive Data Percent cell count reference ranges are not reported, since discordance with absolute values may lead to misinterpretation of CBC data. Current Interpretive Data was last revised on 2017. Monocyte pct 12.4 % [facility] Comment: Interpretive Data Percent cell count reference ranges are not reported, since discordance with absolute values may lead to misinterpretation of CBC data. Current Interpretive Data was last revised on 2017. Eosinophil pct 1.0 % [facility] Comment: Interpretive Data Percent cell count reference ranges are not reported, since discordance with absolute values may lead to misinterpretation of CBC data. Current Interpretive Data was last revised on 2017. Basophil pct 0.6 % [facility] Comment: Interpretive Data Percent cell count reference ranges are not reported, since discordance with absolute values may lead to misinterpretation of CBC data. Current Interpretive Data was last revised on 2017. Blood 05/12/2024 8:57 PM SEARCH MARKETING ANALYST 05/12/2024 9:33 PM SEARCH MARKETING ANALYST Duyen Malloy MD LAB BLOOD ORDERABLES Final Result Performing Organization Address City/[facility] Co de Phone Number [facility] Department [place] [employer] [place] [address] * (ABNORMAL) CBC with auto differential (05/12/2024 8:57 PM SEARCH MARKETING ANALYST) WBC 12.5(H) 3.8 - 9.9 K/cumm Hgb 7.0(L) 11.9 - 15.5 g/dL [facility] Hct 22.0(L) 35.6 - 45.5 % [facility] Plt 140(L) 150 - 400 K/cumm [facility] MPV 9.6 9.1 - 12.3 fL [facility] RBC 2.33(L) 3.90 - 5.20 M/cumm [facility] MCV 94.4 81.3 - 96.4 fL [facility] MCH 30.0 27.1 - 33.3 pg [facility] MCHC 31.8(L) 32.3 - 35.7 g/dL [facility] RDW CV 14.4 11.1 - 14.9 % [facility] RDW SD 48.4(H) 35.7 - 48.1 fL [facility] NRBC abs 0.02(H) 0.00 - 0.01 K/cumm [facility] Blood 05/12/2024 8:57 PM SEARCH MARKETING ANALYST 05/12/2024 9:33 PM SEARCH MARKETING ANALYST Duyen Malloy MD LAB BLOOD ORDERABLES Final Result Performing Organization Address City/[facility]/ZIP Co de Phone Number [facility] Department [place] [address] * Type and screen (05/12/2024 8:57 PM SEARCH MARKETING ANALYST) Pathologist [facility] ABO Rh O Positive Zackary, indirect Negative [facility] Blood 05/12/2024 8:57 PM SEARCH MARKETING ANALYST 05/12/2024 9:39 PM SEARCH MARKETING ANALYST Narrative [facility] - 05/12/2024 10:34 PM SEARCH MARKETING ANALYST Has the patient had Daratumumab or Isatuximab in the past 6 months?->Unknown Tristan Hutton MD LAB BLOOD BANK TEST ORDER HAILEY Final Result Performing Organization Address City/[facility] [place] [address] * Phosphorus (05/12/2024 8:57 PM SEARCH MARKETING ANALYST) [facility] Phosphorus, pl 3.6 2.3 - 4.5 mg/dL Blood 05/12/2024 8:57 PM SEARCH MARKETING ANALYST 05/12/2024 9:32 PM SEARCH MARKETING ANALYST Duyen Malloy MD LAB BLOOD ORDERABLES Final Result Performing Organization Address [facility] Co de Phone Number [facility] Department [place] [address] * (ABNORMAL) Magnesium (05/12/2024 8:57 PM SEARCH MARKETING ANALYST) [facility] Magnesium 2.6(H) 1.4 - 2.5 mg/dL Blood 05/12/2024 8:57 PM SEARCH MARKETING ANALYST 05/12/2024 9:32 PM SEARCH MARKETING ANALYST Duyen Malloy MD LAB BLOOD ORDERABLES Final Result Performing Organization Address [facility] Co de Phone Number [facility] Department [place] [address] * (ABNORMAL) Basic metabolic panel (05/12/2024 8:57 PM SEARCH MARKETING ANALYST) Sodium 139 135 - 145 mmol/L Potassium, pl 4.4 3.3 - 4.9 mmol/L [facility] Chloride 101 97 - 110 mmol/L [facility] CO2 29 22 - 32 mmol/L [facility] Anion gap 9 2 - 15 mmol/L [facility] BUN 16 6 - 25 mg/dL [facility] Creatinine 4.17(H) 0.60 - 1.10 mg/dL [facility] Glucose 147 70 - 199 mg/dL [facility] Comment: Interpretive Data Fasting glucose >/= 126 [...] 2022. Calcium 9.1 8.5 - 10.3 mg/dL [facility] Blood 05/12/2024 8:57 PM SEARCH MARKETING ANALYST 05/12/2024 9:32 PM SEARCH MARKETING ANALYST Duyen Malloy MD LAB BLOOD ORDERABLES Final Result Performing Organization Address City/[facility]/ZIP Co de Phone Number [facility] Department [place] [address] * POCT glucose (05/12/2024 7:41 PM SEARCH MARKETING ANALYST) Glucose, POC 145 70 - 199 mg/dL Blood 05/12/2024 7:4 1 PM SEARCH MARKETING ANALYST 05/12/2024 7:41 PM SEARCH MARKETING ANALYST Tristan Hutton MD LAB POCT ORDERABLES - DEV ICE Final Result Performing Organization Address City/[facility]/ZIP Co de Phone Number [facility] Department [place] [address] * POCT glucose (05/12/2024 5:39 PM SEARCH MARKETING ANALYST) Glucose, POC 107 70 - 199 mg/dL Blood 05/12/2024 5:39 PM SEARCH MARKETING ANALYST 05/12/2024 5:39 PM SEARCH MARKETING ANALYST Tristan Hutton MD LAB POCT ORDERABLES - DEV ICE Final Result Performing Organization Address [facility] de Phone Number [facility] [place] [employer] [place] [address] * POCT glucose (05/12/2024 12:10 PM SEARCH MARKETING ANALYST) Glucose, POC 107 70 - 199 mg/dL Blood 05/12/2024 12:1 0 PM SEARCH MARKETING ANALYST 05/12/2024 12:10 PM SEARCH MARKETING ANALYST Tristan Hutton MD LAB POCT ORDERABLES - DEV ICE Final Result Performing Organization Address [facility] de Phone Number [facility] [place] [address] * POCT glucose (05/12/2024 8:30 AM SEARCH MARKETING ANALYST) Glucose, POC 88 70 - 199 mg/dL Blood 05/12/2024 8:30 AM SEARCH MARKETING ANALYST 05/12/2024 8:30 AM SEARCH MARKETING ANALYST Tristan Hutton MD LAB POCT ORDERABLES - DEV ICE Final Result Performing Organization Address [facility] de Phone Number [facility] [place] [address] * (ABNORMAL) Differential, auto (05/11/2024 10:31 PM SEARCH MARKETING ANALYST) Neutrophil abs 7.8(H) 1.5 - 6.5 K/cumm Imm gran abs 0.2(H) 0.0 - 0.1 K/cumm [facility] Lymphocyte abs 3.0 0.8 - 3.3 K/cumm [facility] Monocyte abs 2.0(H) 0.2 - 0.8 K/cumm [facility] Eosinophil abs 0.2 0.0 - 0.5 K/cumm [facility] Basophil abs 0.1 0.0 - 0.1 K/cumm [facility] Neutrophil pct 58.9 % [facility] Comment: Interpretive Data Percent cell count reference ranges are not reported, since discordance with absolute values may lead to misinterpretation of CBC data. Current Interpretive Data was last revised on 2017. Imm gran pct 1.4 % [facility] Comment: Interpretive Data Percent cell count reference ranges are not reported, since discordance with absolute values may lead to misinterpretation of CBC data. Current Interpretive Data was last revised on 2017. Lymphocyte pct 22.4 % [facility] Comment: Interpretive Data Percent cell count reference ranges are not reported, since discordance with absolute values may lead to misinterpretation of CBC data. Current Interpretive Data was last revised on 2017. Monocyte pct 15.4 % [facility] Comment: Interpretive Data Percent cell count reference ranges are not reported, since discordance with absolute values may lead to misinterpretation of CBC data. Current Interpretive Data was last revised on 2017. Eosinophil pct 1.4 % [facility] Comment: Interpretive Data Percent cell count reference ranges are not reported, since discordance with absolute values may lead to misinterpretation of CBC data. Current Interpretive Data was last revised on 2017. Basophil pct 0.5 % [facility] Comment: Interpretive Data Percent cell count reference ranges are not reported, since discordance with absolute values may lead to misinterpretation of CBC data. Current Interpretive Data was last revised on 2017. Blood 05/11/2024 10:3 1 PM SEARCH MARKETING ANALYST 05/11/2024 11:44 PM SEARCH MARKETING ANALYST us Ovi Albarran MD LAB BLOOD ORDERABLES [facility] [place] [address] * (ABNORMAL) CBC with auto differential (05/11/2024 10:31 PM SEARCH MARKETING ANALYST) [facility] WBC 13.2(H) 3.8 - 9.9 K/cumm Hgb 7.0(L) 11.9 - 15.5 g/dL [facility] Hct 21.1(L) 35.6 - 45.5 % [facility] Plt 148(L) 150 - 400 K/cumm [facility] MPV 9.8 9.1 - 12.3 fL [facility] RBC 2.30(L) 3.90 - 5.20 M/cumm [facility] MCV 91.7 81.3 - 96.4 fL [facility] MCH 30.4 27.1 - 33.3 pg [facility] MCHC 33.2 32.3 - 35.7 g/dL [facility] RDW CV 14.2 11.1 - 14.9 % [facility] RDW SD 46.5 35.7 - 48.1 fL [facility] NRBC abs 0.02(H) 0.00 - 0.01 K/cumm [facility] Blood 05/11/2024 10:3 1 PM SEARCH MARKETING ANALYST 05/11/2024 11:44 PM SEARCH MARKETING ANALYST Ovi Albarran MD LAB BLOOD ORDERABLES Final Re sult [facility] Department [place] [address] * (ABNORMAL) eGFR (05/11/2024 8:42 PM SEARCH MARKETING ANALYST) [facility] eGFR 23(L) >=60 mL/min/1. 73 m2 Comment: [...] last reviewed 2021. Blood 05/11/2024 8:42 PM SEARCH MARKETING ANALYST 05/11/2024 9:11 PM SEARCH MARKETING ANALYST Duyen Malloy MD LAB BLOOD ORDERABLES Final Result Performing Organization Address City/[facility] Co de Phone Number [facility] Department [place] [address] * (ABNORMAL) Phosphorus (05/11/2024 8:42 PM SEARCH MARKETING ANALYST) Phosphorus, pl 2.1(L) 2.3 - 4.5 mg/dL Blood 05/11/2024 8:42 PM SEARCH MARKETING ANALYST 05/11/2024 9:11 PM SEARCH MARKETING ANALYST Duyen Malloy MD LAB BLOOD ORDERABLES Final Result Performing Organization Address City/[facility] Co de Phone Number [facility] Department [place] [address] * Magnesium (05/11/2024 8:42 PM SEARCH MARKETING ANALYST) Magnesium 2.2 1.4 - 2.5 mg/dL Blood 05/11/2024 8:42 PM SEARCH MARKETING ANALYST 05/11/2024 9:11 PM SEARCH MARKETING ANALYST Duyen Malloy MD LAB BLOOD ORDERABLES Final Result Performing Organization Address [facility] de Phone Number [facility] Department [place] [address] * (ABNORMAL) Basic metabolic panel (05/11/2024 8:42 PM SEARCH MARKETING ANALYST) Pathologist [facility] Sodium 139 135 - 145 mmol/L Potassium, pl 3.6 3.3 - 4.9 mmol/L [facility] Chloride 99 97 - 110 mmol/L [facility] CO2 32 22 - 32 mmol/L [facility] Anion gap 8 2 - 15 mmol/L [facility] BUN 6 6 - 25 mg/dL [facility] Creatinine 2.36(H) 0.60 - 1.10 mg/dL [facility] Glucose 123 70 - 199 mg/dL [facility] Comment: Interpretive Data Fasting glucose >/= 126 [...] 2022. Calcium 8.9 8.5 - 10.3 mg/dL [facility] Blood 05/11/2024 8:42 PM SEARCH MARKETING ANALYST 05/11/2024 9:11 PM SEARCH MARKETING ANALYST Duyen Malloy MD LAB BLOOD ORDERABLES Final Result [facility] Department [place] [address] * POCT glucose (05/11/2024 7:41 PM SEARCH MARKETING ANALYST) Pathologist [facility] Glucose, POC 121 70 - 199 mg/dL Blood 05/11/2024 7:41 PM SEARCH MARKETING ANALYST 05/11/2024 7:41 PM SEARCH MARKETING ANALYST Tristan Hutton MD LAB POCT ORDERABLES - DEV ICE Final Result Performing Organization Address City/[facility] [place] [address] * POCT glucose (05/11/2024 4:38 PM SEARCH MARKETING ANALYST) Glucose, POC 120 70 - 199 mg/dL Blood 05/11/2024 4:38 PM SEARCH MARKETING ANALYST 05/11/2024 4:38 PM SEARCH MARKETING ANALYST Tristan Hutton MD LAB POCT ORDERABLES - DEV ICE Final Result Performing Organization Address [facility] [place] [address] * POCT glucose (05/11/2024 11:45 AM SEARCH MARKETING ANALYST) Glucose, POC 81 70 - 199 mg/dL Blood 05/11/2024 11:4 5 AM SEARCH MARKETING ANALYST 05/11/2024 11:45 AM SEARCH MARKETING ANALYST Tristan Hutton MD LAB POCT ORDERABLES - DEV ICE Final Result Performing Organization Address [facility] Co de Phone Number [facility] [place] [address] * POCT glucose (05/11/2024 9:19 AM SEARCH MARKETING ANALYST) Glucose, POC 95 70 - 199 mg/dL Blood 05/11/2024 9:19 AM SEARCH MARKETING ANALYST 05/11/2024 9:19 AM SEARCH MARKETING ANALYST Tristan Hutton MD LAB POCT ORDERABLES - DEV ICE Final Result Performing Organization Address City/[facility] Co de Phone Number [facility] [place] [address] * (ABNORMAL) eGFR (05/10/2024 9:54 PM SEARCH MARKETING ANALYST) Pathologist [facility] eGFR 13(L) >=60 mL/min/1. 73 m2 Comment: [...] last reviewed 2021. Blood 05/10/2024 9:54 PM SEARCH MARKETING ANALYST 05/10/2024 10:32 PM SEARCH MARKETING ANALYST us Duyen Malloy MD LAB BLOOD ORDERABLES Final Result [facility] Department [place] [address] * (ABNORMAL) Differential, auto (05/10/2024 9:54 PM SEARCH MARKETING ANALYST) [facility] Neutrophil abs 11.3(H) 1.5 - 6.5 K/cumm Imm gran abs 0.3(H) 0.0 - 0.1 K/cumm [facility] Lymphocyte abs 2.8 0.8 - 3.3 K/cumm [facility] Monocyte abs 2.0(H) 0.2 - 0.8 K/cumm [facility] Eosinophil abs 0.2 0.0 - 0.5 K/cumm [facility] Basophil abs 0.1 0.0 - 0.1 K/cumm [facility] Neutrophil pct 67.4 % [facility] Comment: Interpretive Data Percent cell count reference ranges are not reported, since discordance with absolute values may lead to misinterpretation of CBC data. Current Interpretive Data was last revised on 2017. Imm gran pct 1.9 % [facility] Comment: Interpretive Data Percent cell count reference ranges are not reported, since discordance with absolute values may lead to misinterpretation of CBC data. Current Interpretive Data was last revised on 2017. Lymphocyte pct 16.7 % [facility] Comment: Interpretive Data Percent cell count reference ranges are not reported, since discordance with absolute values may lead to misinterpretation of CBC data. Current Interpretive Data was last revised on 2017. Monocyte pct 12.2 % [facility] Comment: Interpretive Data Percent cell count reference ranges are not reported, since discordance with absolute values may lead to misinterpretation of CBC data. Current Interpretive Data was last revised on 2017. Eosinophil pct 1.3 % [facility] Comment: Interpretive Data Percent cell count reference ranges are not reported, since discordance with absolute values may lead to misinterpretation of CBC data. Current Interpretive Data was last revised on 2017. Basophil pct 0.5 % [facility] Comment: Interpretive Data Percent cell count reference ranges are not reported, since discordance with absolute values may lead to misinterpretation of CBC data. Current Interpretive Data was last revised on 2017. Blood 05/10/2024 9:54 PM SEARCH MARKETING ANALYST 05/10/2024 10:32 PM SEARCH MARKETING ANALYST us Duyen Malloy MD LAB BLOOD ORDERABLES Final Result [facility] [place] [address] * (ABNORMAL) CBC with auto differential (05/10/2024 9:54 PM SEARCH MARKETING ANALYST) WBC 16.7(H) 3.8 - 9.9 K/cumm Hgb 7.4(L) 11.9 - 15.5 g/dL [facility] Hct 22.9(L) 35.6 - 45.5 % [facility] Plt 214 150 - 400 K/cumm [facility] MPV 9.5 9.1 - 12.3 fL [facility] RBC 2.50(L) 3.90 - 5.20 M/cumm [facility] MCV 91.6 81.3 - 96.4 fL [facility] MCH 29.6 27.1 - 33.3 pg [facility] MCHC 32.3 32.3 - 35.7 g/dL [facility] RDW CV 14.0 11.1 - 14.9 % [facility] RDW SD 46.5 35.7 - 48.1 fL [facility] NRBC abs 0.02(H) 0.00 - 0.01 K/cumm [facility] Blood 05/10/2024 9:54 PM SEARCH MARKETING ANALYST 05/10/2024 10:32 PM SEARCH MARKETING ANALYST Duyen Malloy MD LAB BLOOD ORDERABLES Final Result Performing Organization Address City/[facility]/ZIP Co de Phone Number [facility] Department [place] [address] * Phosphorus (05/10/2024 9:54 PM SEARCH MARKETING ANALYST) Phosphorus, pl 4.0 2.3 - 4.5 mg/dL Blood 05/10/2024 9:54 PM SEARCH MARKETING ANALYST 05/10/2024 10:32 PM SEARCH MARKETING ANALYST Duyen Malloy MD LAB BLOOD ORDERABLES Final Result [facility] Department [place] [address] * Magnesium (05/10/2024 9:54 PM SEARCH MARKETING ANALYST) Magnesium 2.5 1.4 - 2.5 mg/dL Blood 05/10/2024 9:54 PM SEARCH MARKETING ANALYST 05/10/2024 10:32 PM SEARCH MARKETING ANALYST Duyen Malloy MD LAB BLOOD ORDERABLES Final Result [facility] Department [place] [address] * (ABNORMAL) Basic metabolic panel (05/10/2024 9:54 PM SEARCH MARKETING ANALYST) Sodium 137 135 - 145 mmol/L Potassium, pl 4.1 3.3 - 4.9 mmol/L [facility] Chloride 100 97 - 110 mmol/L [facility] CO2 28 22 - 32 mmol/L [facility] Anion gap 9 2 - 15 mmol/L [facility] BUN 15 6 - 25 mg/dL [facility] Creatinine 3.76(H) 0.60 - 1.10 mg/dL [facility] Comment:Repeated and Verifie d Glucose 83 70 - 199 mg/dL [facility] Comment: Interpretive Data Fasting glucose >/= 126 [...] 2022. Calcium 9.1 8.5 - 10.3 mg/dL [facility] Blood 05/10/2024 9:54 PM SEARCH MARKETING ANALYST 05/10/2024 10:32 PM SEARCH MARKETING ANALYST us Duyen Malloy MD LAB BLOOD ORDERABLES Final Result [facility] Department [place] [address] * POCT glucose (05/10/2024 8:10 PM SEARCH MARKETING ANALYST) Glucose, POC 108 70 - 199 mg/dL Blood 05/10/2024 8:10 PM SEARCH MARKETING ANALYST 05/10/2024 8:10 PM SEARCH MARKETING ANALYST us Tristan Hutton MD LAB POCT ORDERABLES - DEV ICE Final Result Performing Organization Address City/[facility] Co de Phone Number [facility] [place] [address] * POCT glucose (05/10/2024 11:35 AM SEARCH MARKETING ANALYST) Glucose, POC 81 70 - 199 mg/dL Blood 05/10/2024 11:3 5 AM SEARCH MARKETING ANALYST 05/10/2024 11:35 AM SEARCH MARKETING ANALYST Tristan Hutton MD LAB POCT ORDERABLES - DEV ICE Final Result Performing Organization Address [facility] de Phone Number [facility] [place] [address] * IR Tunneled Line Placement > 5 Years (05/10/2024 10:09 AM SEARCH MARKETING ANALYST) Anatomical Region Laterality Modality Body N/A X-Ray Angiograph y 05/10/2024 3:26 PM SEARCH MARKETING ANALYST Impressions 05/10/2024 5:45 PM SEARCH MARKETING ANALYST 1. Removal of previously placed right internal jugular vein approach non-tunneled central venous (Trialysis) catheter. 2. Successful tunneled 19 cm tip to cuff tunneled dialysis catheter placement via the right internal jugular vein. PLAN: The catheter is ready for immediate use. When treatment is completed, removal can be scheduled by calling [facility] - [phone] [facility] - [phone] Dictated by: Sylwia Jha MD The radiology attending physician has personally reviewed this study, and had reviewed and/or edited this written report and agrees with it. Electronically signed by: Palomo Guzmán M.D. Narrative 05/10/2024 5:45 PM SEARCH MARKETING ANALYST EXAMINATION: TUNNELED CENTRAL VENOUS CATHETER PLACEMENT USING [...] was obtained. Prior to beginning the procedure, [place] Protocol was used to confirm the patient's [...] was obtained. Prior to beginning the procedure, [place] Protocol was used to confirm the patient's [...] completed, removal can be scheduled by calling [facility] - [phone] [facility] - [phone] Dictated by: Sylwia Jha MD The radiology attending physician has personally reviewed this study, and had reviewed and/or edited this written report and agrees with it. Electronically signed by: Palomo Guzmán M.D. Tristan Hutton MD IMG IR PROCEDURES Final R esult * POCT glucose (05/10/2024 7:20 AM SEARCH MARKETING ANALYST) Glucose, POC 78 70 - 199 mg/dL Blood 05/10/2024 7:20 AM SEARCH MARKETING ANALYST 05/10/2024 7:20 AM SEARCH MARKETING ANALYST Tristan Hutton MD LAB POCT ORDERABLES - DEV ICE Final Result Performing Organization Address [facility] Co de Phone Number [facility] Department [place] [address] * POCT glucose (05/10/2024 4:03 AM SEARCH MARKETING ANALYST) Glucose, POC 86 70 - 199 mg/dL Blood 05/10/2024 4:03 AM SEARCH MARKETING ANALYST 05/10/2024 4:03 AM SEARCH MARKETING ANALYST Tristan Hutton MD LAB POCT ORDERABLES - DEV ICE Final Result Performing Organization Address City/[facility] Co de Phone Number [facility] Department [place] [address] * (ABNORMAL) eGFR (05/09/2024 9:55 PM SEARCH MARKETING ANALYST) eGFR 37(L) >=60 mL/min/1. 73 m2 Comment: [...] last reviewed 2021. Blood 05/09/2024 9:55 PM SEARCH MARKETING ANALYST 05/09/2024 10:35 PM SEARCH MARKETING ANALYST us Duyen Malloy MD LAB BLOOD ORDERABLES Final Result [facility] Department [place] [address] * (ABNORMAL) Differential, auto (05/09/2024 9:55 PM SEARCH MARKETING ANALYST) Pathologist [facility] Neutrophil abs 13.0(H) 1.5 - 6.5 K/cumm Imm gran abs 0.4(H) 0.0 - 0.1 K/cumm [facility] Lymphocyte abs 2.4 0.8 - 3.3 K/cumm [facility] Monocyte abs 2.0(H) 0.2 - 0.8 K/cumm [facility] Eosinophil abs 0.3 0.0 - 0.5 K/cumm [facility] Basophil abs 0.1 0.0 - 0.1 K/cumm [facility] Neutrophil pct 71.7 % [facility] Comment: Interpretive Data Percent cell count reference ranges are not reported, since discordance with absolute values may lead to misinterpretation of CBC data. Current Interpretive Data was last revised on 2017. Imm gran pct 2.2 % [facility] Comment: Interpretive Data Percent cell count reference ranges are not reported, since discordance with absolute values may lead to misinterpretation of CBC data. Current Interpretive Data was last revised on 2017. Lymphocyte pct 13.2 % [facility] Comment: Interpretive Data Percent cell count reference ranges are not reported, since discordance with absolute values may lead to misinterpretation of CBC data. Current Interpretive Data was last revised on 2017. Monocyte pct 11.1 % [facility] Comment: Interpretive Data Percent cell count reference ranges are not reported, since discordance with absolute values may lead to misinterpretation of CBC data. Current Interpretive Data was last revised on 2017. Eosinophil pct 1.4 % [facility] Comment: Interpretive Data Percent cell count reference ranges are not reported, since discordance with absolute values may lead to misinterpretation of CBC data. Current Interpretive Data was last revised on 2017. Basophil pct 0.4 % [facility] Comment: Interpretive Data Percent cell count reference ranges are not reported, since discordance with absolute values may lead to misinterpretation of CBC data. Current Interpretive Data was last revised on 2017. Blood 05/09/2024 9:55 PM SEARCH MARKETING ANALYST 05/09/2024 10:35 PM SEARCH MARKETING ANALYST Duyen Malloy MD LAB BLOOD ORDERABLES Final Result [facility] Department [place] [address] * (ABNORMAL) CBC with auto differential (05/09/2024 9:55 PM SEARCH MARKETING ANALYST) WBC 18.1(H) 3.8 - 9.9 K/cumm Hgb 7.4(L) 11.9 - 15.5 g/dL [facility] Hct 22.6(L) 35.6 - 45.5 % [facility] Plt 195 150 - 400 K/cumm [facility] MPV 10.0 9.1 - 12.3 fL [facility] RBC 2.47(L) 3.90 - 5.20 M/cumm [facility] MCV 91.5 81.3 - 96.4 fL [facility] MCH 30.0 27.1 - 33.3 pg [facility] MCHC 32.7 32.3 - 35.7 g/dL [facility] RDW CV 13.7 11.1 - 14.9 % [facility] RDW SD 46.1 35.7 - 48.1 fL [facility] NRBC abs 0.02(H) 0.00 - 0.01 K/cumm [facility] Blood 05/09/2024 9:55 PM SEARCH MARKETING ANALYST 05/09/2024 10:35 PM SEARCH MARKETING ANALYST Duyen Malloy MD LAB BLOOD ORDERABLES Final Result Performing Organization Address City/[facility] Co de Phone Number [facility] [place] [address] * (ABNORMAL) Phosphorus (05/09/2024 9:55 PM SEARCH MARKETING ANALYST) [facility] Phosphorus, pl 2.2(L) 2.3 - 4.5 mg/dL Blood 05/09/2024 9:55 PM SEARCH MARKETING ANALYST 05/09/2024 10:35 PM SEARCH MARKETING ANALYST Duyen Malloy MD LAB BLOOD ORDERABLES Final Result Performing Organization Address [facility] de Phone Number [facility] [employer] [place] [address] * Magnesium (05/09/2024 9:55 PM SEARCH MARKETING ANALYST) [facility] Magnesium 2.2 1.4 - 2.5 mg/dL Blood 05/09/2024 9:55 PM SEARCH MARKETING ANALYST 05/09/2024 10:35 PM SEARCH MARKETING ANALYST Duyen Malloy MD LAB BLOOD ORDERABLES Final Result Performing Organization Address [facility] Co de Phone Number [facility] [place] [place] [address] * (ABNORMAL) Basic metabolic panel (05/09/2024 9:55 PM SEARCH MARKETING ANALYST) [facility] Sodium 137 135 - 145 mmol/L Potassium, pl 3.8 3.3 - 4.9 mmol/L [facility] Chloride 100 97 - 110 mmol/L [facility] CO2 30 22 - 32 mmol/L [facility] Anion gap 7 2 - 15 mmol/L [facility] BUN 5(L) 6 - 25 mg/dL [facility] Creatinine 1.61(H) 0.60 - 1.10 mg/dL [facility] Glucose 105 70 - 199 mg/dL [facility] Comment: Interpretive Data Fasting glucose >/= 126 [...] 2022. Calcium 8.8 8.5 - 10.3 mg/dL [facility] Blood 05/09/2024 9:55 PM SEARCH MARKETING ANALYST 05/09/2024 10:35 PM SEARCH MARKETING ANALYST us Duyen Malloy MD LAB BLOOD ORDERABLES Final Result [facility] Department [place] [address] * POCT glucose (05/09/2024 8:07 PM SEARCH MARKETING ANALYST) Glucose, POC 124 70 - 199 mg/dL Blood 05/09/2024 8:07 PM SEARCH MARKETING ANALYST 05/09/2024 8:07 PM SEARCH MARKETING ANALYST us Tristan Hutton MD LAB POCT ORDERABLES - DEV ICE Final Result [facility] Department [place] [address] * POCT glucose (05/09/2024 5:07 PM SEARCH MARKETING ANALYST) Glucose, POC 90 70 - 199 mg/dL Blood 05/09/2024 5:07 PM SEARCH MARKETING ANALYST 05/09/2024 5:07 PM SEARCH MARKETING ANALYST Tristan Hutton MD LAB POCT ORDERABLES - DEV ICE Final Result Performing Organization Address [facility] [place] [address] * POCT glucose (05/09/2024 12:11 PM SEARCH MARKETING ANALYST) Glucose, POC 132 70 - 199 mg/dL Blood 05/09/2024 12:1 1 PM SEARCH MARKETING ANALYST 05/09/2024 12:11 PM SEARCH MARKETING ANALYST Tristan Hutton MD LAB POCT ORDERABLES - DEV ICE Final Result Performing Organization Address [facility] [place] [address] * US Vein Mapping Duplex Upper Extremity Bilateral (05/09/2024 11:33 AM SEARCH MARKETING ANALYST) Anatomical Region Laterality Modality Vascular Bilateral Ultrasound 05/09/2024 10:3 8 AM SEARCH MARKETING ANALYST Narrative 05/10/2024 9:36 AM SEARCH MARKETING ANALYST [facility] - Department of Vascular Surgery, Vascular Laboratory [address] [place] [id number] Upper Extremity Vein Mapping Report Patient Name: DARLINE CUI L : 1965 (59y 1m) Study Date: 05/09/2024 10:38:28 AM Gender: F Family Dentist: ALDAIR Location: [id number] Ref Provider: TRISTNA HUTTON Quality: Adequate Order Provider: TRISTAN HUTTON [...] Value Units Left Value Units FINDINGS: Performing Family Dentist: Disha Duke RDMS, T. Bilateral: Venous Doppler signals in the bilateral [...] Jourdan Szymanski MD FACS 05/10/2024 9:26:35 AM SEARCH MARKETING ANALYST Procedure Note Jourdan Szymanski MD - 05/10/2024 [facility] - Department of Vascular Surgery,Vascular Laboratory [address] [place] [id number] Upper Extremity Vein Mapping Report Patient Name: DARLINE CUI L : 1965 (59y 1m) Study Date: 05/09/2024 10:38:28 AM Gender: F Family Dentist: ALDAIR Location: [id number] Ref Provider: TRISTAN HUTTON Quality: Adequate Order [...] Value Units Left Value Units FINDINGS: Performing Family Dentist: Disha Duke RDMS, RVT. Bilateral: Venous Doppler [...] above. Electronically Signed By: Jourdan Szymanski MD [facility] 05/10/2024 9:26:35 AM SEARCH MARKETING ANALYST us Tristan Hutton MD IM US PROCEDURES Final R esult * POCT glucose (05/09/2024 7:11 AM SEARCH MARKETING ANALYST) [facility] Glucose, POC 111 70 - 199 mg/dL Blood 05/09/2024 7:11 AM SEARCH MARKETING ANALYST 05/09/2024 7:11 AM SEARCH MARKETING ANALYST us Duyen Malloy MD LAB POCT ORDERABLES - ARELY CE Final Result [facility] Department [place] [address] * POCT glucose (05/08/2024 8:19 PM SEARCH MARKETING ANALYST) Glucose, POC 128 70 - 199 mg/dL Blood 05/08/2024 8:19 PM SEARCH MARKETING ANALYST 05/08/2024 8:19 PM SEARCH MARKETING ANALYST Duyen Malloy MD LAB POCT ORDERABLES - ARELY CE Final Result Performing Organization Address [facility] de Phone Number [facility] [place] [address] * POCT glucose (05/08/2024 5:16 PM SEARCH MARKETING ANALYST) Glucose, POC 133 70 - 199 mg/dL Blood 05/08/2024 5:16 PM SEARCH MARKETING ANALYST 05/08/2024 5:16 PM SEARCH MARKETING ANALYST Duyen Malloy MD LAB POCT ORDERABLES - ARELY CE Final Result Performing Organization Address [facility] de Phone Number [facility] [place] [employer] [place] [address] * POCT glucose (05/08/2024 11:04 AM SEARCH MARKETING ANALYST) Glucose, POC 161 70 - 199 mg/dL Blood 05/08/2024 11:0 4 AM SEARCH MARKETING ANALYST 05/08/2024 11:04 AM SEARCH MARKETING ANALYST Duyen Malloy MD LAB POCT ORDERABLES - ARELY CE Final Result Performing Organization Address [facility] de Phone Number [facility] [place] [address] * POCT glucose (05/08/2024 7:29 AM SEARCH MARKETING ANALYST) Glucose, POC 94 70 - 199 mg/dL Blood 05/08/2024 7:29 AM SEARCH MARKETING ANALYST 05/08/2024 7:29 AM SEARCH MARKETING ANALYST Duyen Malloy MD LAB POCT ORDERABLES - ARELY CE Final Result Performing Organization Address [facility] Co de Phone Number [facility] [place] [address] * (ABNORMAL) eGFR (05/08/2024 5:11 AM SEARCH MARKETING ANALYST) Pathologist [facility] eGFR 25(L) >=60 mL/min/1. 73 m2 Comment: [...] last reviewed 2021. Blood 05/08/2024 5:11 AM SEARCH MARKETING ANALYST 05/08/2024 5:19 AM SEARCH MARKETING ANALYST Duyen Malloy MD LAB BLOOD ORDERABLES Final Result Performing Organization Address [facility] Co de Phone Number [facility] [place] [address] * (ABNORMAL) Differential, auto (05/08/2024 5:11 AM SEARCH MARKETING ANALYST) Pathologist [facility] Neutrophil abs 11.3(H) 1.5 - 6.5 K/cumm Imm gran abs 0.6(H) 0.0 - 0.1 K/cumm [facility] Lymphocyte abs 2.1 0.8 - 3.3 K/cumm [facility] Monocyte abs 2.3(H) 0.2 - 0.8 K/cumm [facility] Eosinophil abs 0.3 0.0 - 0.5 K/cumm [facility] Basophil abs 0.1 0.0 - 0.1 K/cumm [facility] Neutrophil pct 67.9 % [facility] Comment: Interpretive Data Percent cell count reference ranges are not reported, since discordance with absolute values may lead to misinterpretation of CBC data. Current Interpretive Data was last revised on 2017. Imm gran pct 3.5 % [facility] Comment: Interpretive Data Percent cell count reference ranges are not reported, since discordance with absolute values may lead to misinterpretation of CBC data. Current Interpretive Data was last revised on 2017. Lymphocyte pct 12.5 % [facility] Comment: Interpretive Data Percent cell count reference ranges are not reported, since discordance with absolute values may lead to misinterpretation of CBC data. Current Interpretive Data was last revised on 2017. Monocyte pct 14.1 % [facility] Comment: Interpretive Data Percent cell count reference ranges are not reported, since discordance with absolute values may lead to misinterpretation of CBC data. Current Interpretive Data was last revised on 2017. Eosinophil pct 1.6 % [facility] Comment: Interpretive Data Percent cell count reference ranges are not reported, since discordance with absolute values may lead to misinterpretation of CBC data. Current Interpretive Data was last revised on 2017. Basophil pct 0.4 % [facility] Comment: Interpretive Data Percent cell count reference ranges are not reported, since discordance with absolute values may lead to misinterpretation of CBC data. Current Interpretive Data was last revised on 2017. Blood 05/08/2024 5:11 AM SEARCH MARKETING ANALYST 05/08/2024 5:19 AM SEARCH MARKETING ANALYST us Duyen Malloy MD LAB BLOOD ORDERABLES Final Result [facility] [place] [address] * (ABNORMAL) CBC with auto differential (05/08/2024 5:11 AM SEARCH MARKETING ANALYST) [facility] WBC 16.6(H) 3.8 - 9.9 K/cumm Hgb 7.1(L) 11.9 - 15.5 g/dL [facility] Hct 21.7(L) 35.6 - 45.5 % [facility] Plt 194 150 - 400 K/cumm [facility] MPV 9.6 9.1 - 12.3 fL [facility] RBC 2.41(L) 3.90 - 5.20 M/cumm [facility] MCV 90.0 81.3 - 96.4 fL [facility] MCH 29.5 27.1 - 33.3 pg [facility] MCHC 32.7 32.3 - 35.7 g/dL [facility] RDW CV 13.5 11.1 - 14.9 % [facility] RDW SD 44.5 35.7 - 48.1 fL [facility] NRBC abs 0.04(H) 0.00 - 0.01 K/cumm [facility] Blood 05/08/2024 5:11 AM SEARCH MARKETING ANALYST 05/08/2024 5:19 AM SEARCH MARKETING ANALYST Duyen Malloy MD LAB BLOOD ORDERABLES Final Result Performing Organization Address City/[facility]/ZIP Co de Phone Number [facility] [place] [place] [address] * Phosphorus (05/08/2024 5:11 AM SEARCH MARKETING ANALYST) [facility] Phosphorus, pl 2.6 2.3 - 4.5 mg/dL Blood 05/08/2024 5:11 AM SEARCH MARKETING ANALYST 05/08/2024 5:19 AM SEARCH MARKETING ANALYST Duyen Malloy MD LAB BLOOD ORDERABLES Final Result Performing Organization Address City/[facility]/ZIP Co de Phone Number [facility] Department [place] [address] * Magnesium (05/08/2024 5:11 AM SEARCH MARKETING ANALYST) [facility] Magnesium 2.3 1.4 - 2.5 mg/dL Blood 05/08/2024 5:11 AM SEARCH MARKETING ANALYST 05/08/2024 5:19 AM SEARCH MARKETING ANALYST Duyen Malloy MD LAB BLOOD ORDERABLES Final Result [facility] [place] [address] * (ABNORMAL) Basic metabolic panel (05/08/2024 5:11 AM SEARCH MARKETING ANALYST) [facility] Sodium 135 135 - 145 mmol/L Potassium, pl 3.8 3.3 - 4.9 mmol/L [facility] Chloride 100 97 - 110 mmol/L [facility] CO2 30 22 - 32 mmol/L [facility] Anion gap 5 2 - 15 mmol/L [facility] BUN 7 6 - 25 mg/dL [facility] Creatinine 2.26(H) 0.60 - 1.10 mg/dL [facility] Glucose 83 70 - 199 mg/dL [facility] Comment: Interpretive Data Fasting glucose >/= 126 [...] 2022. Calcium 9.2 8.5 - 10.3 mg/dL [facility] Blood 05/08/2024 5:11 AM SEARCH MARKETING ANALYST 05/08/2024 5:19 AM SEARCH MARKETING ANALYST Duyen Malloy MD LAB BLOOD ORDERABLES Final Result Performing Organization Address City/[facility]/ZIP Co de Phone Number [facility] [place] [place] [address] * POCT glucose (05/07/2024 8:37 PM SEARCH MARKETING ANALYST) Glucose, POC 129 70 - 199 mg/dL Blood 05/07/2024 8:37 PM SEARCH MARKETING ANALYST 05/07/2024 8:37 PM SEARCH MARKETING ANALYST Duyen Malloy MD LAB POCT ORDERABLES - ARELY CE Final Result Performing Organization Address City/[facility] Co de Phone Number [facility] Department [place] [address] * POCT glucose (05/07/2024 3:07 PM SEARCH MARKETING ANALYST) Glucose, POC 171 70 - 199 mg/dL Blood 05/07/2024 3:07 PM SEARCH MARKETING ANALYST 05/07/2024 3:07 PM SEARCH MARKETING ANALYST Duyen Malloy MD LAB POCT ORDERABLES - ARELY CE Final Result Performing Organization Address [facility] Co de Phone Number [facility] Department [place] [address] * POCT glucose (05/07/2024 11:08 AM SEARCH MARKETING ANALYST) Glucose, POC 131 70 - 199 mg/dL Blood 05/07/2024 11:0 8 AM SEARCH MARKETING ANALYST 05/07/2024 11:08 AM SEARCH MARKETING ANALYST Duyen Malloy MD LAB POCT ORDERABLES - ARELY CE Final Result Performing Organization Address City/[facility] Co de Phone Number [facility] [employer] [address] * POCT glucose (05/07/2024 7:28 AM SEARCH MARKETING ANALYST) Glucose, POC 98 70 - 199 mg/dL Blood 05/07/2024 7:28 AM SEARCH MARKETING ANALYST 05/07/2024 7:28 AM SEARCH MARKETING ANALYST Duyen Malloy MD LAB POCT ORDERABLES - ARELY CE Final Result Performing Organization Address [facility] Co de Phone Number [facility] [place] [address] * (ABNORMAL) eGFR (05/07/2024 4:14 AM SEARCH MARKETING ANALYST) Pathologist [facility] eGFR 17(L) >=60 mL/min/1. 73 m2 Comment: [...] last reviewed 2021. Blood 05/07/2024 4:14 AM SEARCH MARKETING ANALYST 05/07/2024 4:28 AM SEARCH MARKETING ANALYST Duyen Malloy MD LAB BLOOD ORDERABLES Final Result Performing Organization Address City/[facility]/ZIP Co de Phone Number [facility] [place] [address] * (ABNORMAL) Differential, auto (05/07/2024 4:14 AM SEARCH MARKETING ANALYST) Pathologist [facility] Neutrophil abs 13.3(H) 1.5 - 6.5 K/cumm Imm gran abs 0.3(H) 0.0 - 0.1 K/cumm [facility] Lymphocyte abs 1.1 0.8 - 3.3 K/cumm [facility] Monocyte abs 1.4(H) 0.2 - 0.8 K/cumm [facility] Eosinophil abs 0.3 0.0 - 0.5 K/cumm [facility] Basophil abs 0.1 0.0 - 0.1 K/cumm [facility] Neutrophil pct 80.7 % [facility] Comment: Interpretive Data Percent cell count reference ranges are not reported, since discordance with absolute values may lead to misinterpretation of CBC data. Current Interpretive Data was last revised on 2017. Imm gran pct 1.9 % [facility] Comment: Interpretive Data Percent cell count reference ranges are not reported, since discordance with absolute values may lead to misinterpretation of CBC data. Current Interpretive Data was last revised on 2017. Lymphocyte pct 6.7 % [facility] Comment: Interpretive Data Percent cell count reference ranges are not reported, since discordance with absolute values may lead to misinterpretation of CBC data. Current Interpretive Data was last revised on 2017. Monocyte pct 8.3 % [facility] Comment: Interpretive Data Percent cell count reference ranges are not reported, since discordance with absolute values may lead to misinterpretation of CBC data. Current Interpretive Data was last revised on 2017. Eosinophil pct 2.0 % [facility] Comment: Interpretive Data Percent cell count reference ranges are not reported, since discordance with absolute values may lead to misinterpretation of CBC data. Current Interpretive Data was last revised on 2017. Basophil pct 0.4 % [facility] Comment: Interpretive Data Percent cell count reference ranges are not reported, since discordance with absolute values may lead to misinterpretation of CBC data. Current Interpretive Data was last revised on 2017. Blood 05/07/2024 4:14 AM SEARCH MARKETING ANALYST 05/07/2024 4:28 AM SEARCH MARKETING ANALYST us Duyen Malloy MD LAB BLOOD ORDERABLES Final Result [facility] [place] [address] * (ABNORMAL) CBC with auto differential (05/07/2024 4:14 AM SEARCH MARKETING ANALYST) [facility] WBC 16.4(H) 3.8 - 9.9 K/cumm Hgb 7.9(L) 11.9 - 15.5 g/dL [facility] Hct 24.0(L) 35.6 - 45.5 % [facility] Plt 182 150 - 400 K/cumm [facility] MPV 9.6 9.1 - 12.3 fL [facility] RBC 2.70(L) 3.90 - 5.20 M/cumm [facility] MCV 88.9 81.3 - 96.4 fL [facility] MCH 29.3 27.1 - 33.3 pg [facility] MCHC 32.9 32.3 - 35.7 g/dL [facility] RDW CV 13.2 11.1 - 14.9 % [facility] RDW SD 42.6 35.7 - 48.1 fL [facility] NRBC abs 0.00 0.00 - 0.01 K/cumm [facility] Blood 05/07/2024 4:14 AM SEARCH MARKETING ANALYST 05/07/2024 4:28 AM SEARCH MARKETING ANALYST Duyen Malloy MD LAB BLOOD ORDERABLES Final Result Performing Organization Address [facility] Co de Phone Number [facility] [place] [address] * Phosphorus (05/07/2024 4:14 AM SEARCH MARKETING ANALYST) [facility] Phosphorus, pl 2.7 2.3 - 4.5 mg/dL Blood 05/07/2024 4:14 AM SEARCH MARKETING ANALYST 05/07/2024 4:28 AM SEARCH MARKETING ANALYST Duyen Malloy MD LAB BLOOD ORDERABLES Final Result Performing Organization Address [facility] Co de Phone Number [facility] Department [place] [address] * Magnesium (05/07/2024 4:14 AM SEARCH MARKETING ANALYST) Pathologist [facility] Magnesium 2.3 1.4 - 2.5 mg/dL Blood 05/07/2024 4:14 AM SEARCH MARKETING ANALYST 05/07/2024 4:28 AM SEARCH MARKETING ANALYST Duyen Malloy MD LAB BLOOD ORDERABLES Final Result Performing Organization Address City/[facility]/ZIP Co de Phone Number [facility] [place] [address] * (ABNORMAL) Basic metabolic panel (05/07/2024 4:14 AM SEARCH MARKETING ANALYST) Pathologist [facility] Sodium 135 135 - 145 mmol/L Potassium, pl 3.6 3.3 - 4.9 mmol/L [facility] Chloride 102 97 - 110 mmol/L [facility] CO2 29 22 - 32 mmol/L [facility] Anion gap 4 2 - 15 mmol/L [facility] BUN 13 6 - 25 mg/dL [facility] Creatinine 3.03(H) 0.60 - 1.10 mg/dL [facility] Glucose 87 70 - 199 mg/dL [facility] Comment: Interpretive Data Fasting glucose >/= 126 [...] 2022. Calcium 8.6 8.5 - 10.3 mg/dL [facility] Blood 05/07/2024 4:14 AM SEARCH MARKETING ANALYST 05/07/2024 4:28 AM SEARCH MARKETING ANALYST Duyen Malloy MD LAB BLOOD ORDERABLES Final Result Performing Organization Address City/[facility]/ZIP Co de Phone Number [facility] [place] [address] * POCT glucose (05/06/2024 7:53 PM SEARCH MARKETING ANALYST) Glucose, POC 175 70 - 199 mg/dL Blood 05/06/2024 7:53 PM SEARCH MARKETING ANALYST 05/06/2024 7:53 PM SEARCH MARKETING ANALYST Duyen Malloy MD LAB POCT ORDERABLES - ARELY CE Final Result Performing Organization Address [facility] [place] [address] * POCT glucose (05/06/2024 5:55 PM SEARCH MARKETING ANALYST) Glucose, POC 136 70 - 199 mg/dL Blood 05/06/2024 5:55 PM SEARCH MARKETING ANALYST 05/06/2024 5:55 PM SEARCH MARKETING ANALYST Duyen Malloy MD LAB POCT ORDERABLES - ARELY CE Final Result Performing Organization Address [facility] de Phone Number [facility] [place] [address] * US Vein Duplex Lower Extremity Bilateral Complete (05/06/2024 2:05 PM SEARCH MARKETING ANALYST) Anatomical Region Laterality Modality Vascular Bilateral Ultrasound 05/06/2024 12:5 5 PM SEARCH MARKETING ANALYST Narrative 05/07/2024 9:00 AM SEARCH MARKETING ANALYST [employer] - Department of Vascular Surgery, Vascular Laboratory [address] [place] [id number] Lower Extremity Venous Ultrasound Report Patient Name: DARLINE CUI L : 1965 (59y 1m) Study Date: 05/06/2024 12:55:27 PM Gender: F Tech: AL Location: [id number] Ref Provider: DUYEN MALLOY Quality: Adequate Order [...] pain, numbness, c/f DVT - FINDINGS: Performing Family Dentist: Kavitha Ho RVT. Bilateral: Venous Doppler signals [...] Jourdan Szymanski MD FACS 05/07/2024 8:25:59 AM SEARCH MARKETING ANALYST Procedure Note Jourdan Szymanski MD - 05/07/2024 [facility] - Department of Vascular Surgery,Vascular Laboratory [address] [place] [id number] Lower Extremity Venous Ultrasound Report Patient Name: DARLINE CUI L : 1965 (59y 1m) Study Date: 05/06/2024 12:55:27 PM Gender: F Tech: AL Location: [id number] Ref Provider: DUYEN MALLOY Quality: Adequate Order Provider: DUYEN MALLOY PROCEDURES: Vascular Report: Venous Duplex imaging was performed bilaterally in the lower extremities.The common femoral, femoral, popliteal, posterior tibial, peroneal veins wereevaluated for patency, spontaneity and phasicity with Doppler, compression and augmentationmaneuvers. Great saphenous vein proximal at the junction was evaluated with compressionmaneuvers. INDICATIONS: LE pain, numbness, c/f DVT - FINDINGS: Performing Family Dentist: Kavitha Ho RVT. Bilateral: Venous Doppler signals [...] Jourdan Szymanski MD FACS 05/07/2024 8:25:59 AM SEARCH MARKETING ANALYST Duyen Malloy MD IMG US PROCEDURES Final Re sult * POCT glucose (05/06/2024 11:42 AM SEARCH MARKETING ANALYST) Glucose, POC 176 70 - 199 mg/dL Blood 05/06/2024 11:4 2 AM SEARCH MARKETING ANALYST 05/06/2024 11:42 AM SEARCH MARKETING ANALYST Duyen Malloy MD LAB POCT ORDERABLES - ARELY CE Final Result Performing Organization Address [facility] Co de Phone Number [facility] Department [place] [place] [address] * POCT glucose (05/06/2024 7:36 AM SEARCH MARKETING ANALYST) [facility] Signature Glucose, POC 103 70 - 199 mg/dL Blood 05/06/2024 7:36 AM SEARCH MARKETING ANALYST 05/06/2024 7:36 AM SEARCH MARKETING ANALYST Duyen Malloy MD LAB POCT ORDERABLES - ARELY CE Final Result Performing Organization Address [facility] Co de Phone Number [facility] [employer] [place] [address] * (ABNORMAL) eGFR (05/06/2024 4:38 AM SEARCH MARKETING ANALYST) eGFR 10(L) >=60 mL/min/1. 73 m2 Comment: [...] last reviewed 2021. Blood 05/06/2024 4:38 AM SEARCH MARKETING ANALYST 05/06/2024 4:55 AM SEARCH MARKETING ANALYST us Duyen Malloy MD LAB BLOOD ORDERABLES Final Result [facility] Department [place] [address] * (ABNORMAL) Differential, auto (05/06/2024 4:38 AM SEARCH MARKETING ANALYST) Neutrophil abs 13.1(H) 1.5 - 6.5 K/cumm Imm gran abs 0.2(H) 0.0 - 0.1 K/cumm [facility] Lymphocyte abs 1.8 0.8 - 3.3 K/cumm [facility] Monocyte abs 1.3(H) 0.2 - 0.8 K/cumm [facility] Eosinophil abs 0.4 0.0 - 0.5 K/cumm [facility] Basophil abs 0.1 0.0 - 0.1 K/cumm [facility] Neutrophil pct 77.5 % [facility] Comment: Interpretive Data Percent cell count reference ranges are not reported, since discordance with absolute values may lead to misinterpretation of CBC data. Current Interpretive Data was last revised on 2017. Imm gran pct 1.4 % [facility] Comment: Interpretive Data Percent cell count reference ranges are not reported, since discordance with absolute values may lead to misinterpretation of CBC data. Current Interpretive Data was last revised on 2017. Lymphocyte pct 10.8 % [facility] Comment: Interpretive Data Percent cell count reference ranges are not reported, since discordance with absolute values may lead to misinterpretation of CBC data. Current Interpretive Data was last revised on 2017. Monocyte pct 7.7 % [facility] Comment: Interpretive Data Percent cell count reference ranges are not reported, since discordance with absolute values may lead to misinterpretation of CBC data. Current Interpretive Data was last revised on 2017. Eosinophil pct 2.1 % [facility] Comment: Interpretive Data Percent cell count reference ranges are not reported, since discordance with absolute values may lead to misinterpretation of CBC data. Current Interpretive Data was last revised on 2017. Basophil pct 0.5 % [facility] Comment: Interpretive Data Percent cell count reference ranges are not reported, since discordance with absolute values may lead to misinterpretation of CBC data. Current Interpretive Data was last revised on 2017. Blood 05/06/2024 4:38 AM SEARCH MARKETING ANALYST 05/06/2024 4:55 AM SEARCH MARKETING ANALYST Duyen Malloy MD LAB BLOOD ORDERABLES Final Result [facility] Department [place] [address] * (ABNORMAL) CBC with auto differential (05/06/2024 4:38 AM SEARCH MARKETING ANALYST) WBC 16.9(H) 3.8 - 9.9 K/cumm Hgb 7.9(L) 11.9 - 15.5 g/dL [facility] Hct 23.6(L) 35.6 - 45.5 % [facility] Plt 200 150 - 400 K/cumm [facility] MPV 10.0 9.1 - 12.3 fL [facility] RBC 2.63(L) 3.90 - 5.20 M/cumm [facility] MCV 89.7 81.3 - 96.4 fL [facility] MCH 30.0 27.1 - 33.3 pg [facility] MCHC 33.5 32.3 - 35.7 g/dL [facility] RDW CV 13.0 11.1 - 14.9 % [facility] RDW SD 42.7 35.7 - 48.1 fL [facility] NRBC abs 0.00 0.00 - 0.01 K/cumm [facility] Blood 05/06/2024 4:38 AM SEARCH MARKETING ANALYST 05/06/2024 4:55 AM SEARCH MARKETING ANALYST Duyen Malloy MD LAB BLOOD ORDERABLES Final Result Performing Organization Address City/[facility]/ZIP Co de Phone Number [facility] [place] [address] * (ABNORMAL) Phosphorus (05/06/2024 4:38 AM SEARCH MARKETING ANALYST) Phosphorus, pl 4.7(H) 2.3 - 4.5 mg/dL Blood 05/06/2024 4:38 AM SEARCH MARKETING ANALYST 05/06/2024 4:55 AM SEARCH MARKETING ANALYST Duyen Malloy MD LAB BLOOD ORDERABLES Final Result Performing Organization Address [facility] Co de Phone Number [facility] [place] [address] * Magnesium (05/06/2024 4:38 AM SEARCH MARKETING ANALYST) Pathologist [facility] Magnesium 2.1 1.4 - 2.5 mg/dL Blood 05/06/2024 4:38 AM SEARCH MARKETING ANALYST 05/06/2024 4:55 AM SEARCH MARKETING ANALYST Duyen Malloy MD LAB BLOOD ORDERABLES Final Result Performing Organization Address City/State/[facility] Co de Phone Number [facility] [place] [address] * (ABNORMAL) Basic metabolic panel (05/06/2024 4:38 AM SEARCH MARKETING ANALYST) Sodium 134(L) 135 - 145 mmol/L Potassium, pl 3.9 3.3 - 4.9 mmol/L [facility] Chloride 96(L) 97 - 110 mmol/L [facility] CO2 25 22 - 32 mmol/L [facility] Anion gap 13 2 - 15 mmol/L [facility] BUN 17 6 - 25 mg/dL [facility] Creatinine 4.77(H) 0.60 - 1.10 mg/dL [facility] Glucose 138 70 - 199 mg/dL [facility] Comment: Interpretive Data Fasting glucose >/= 126 [...] 2022. Calcium 9.1 8.5 - 10.3 mg/dL [facility] Blood 05/06/2024 4:38 AM SEARCH MARKETING ANALYST 05/06/2024 4:55 AM SEARCH MARKETING ANALYST Duyen Malloy MD LAB BLOOD ORDERABLES Final Result Performing Organization Address City/[facility]/ZIP Co de Phone Number [facility] Department [place] [address] * POCT glucose (05/05/2024 8:39 PM SEARCH MARKETING ANALYST) Glucose, POC 192 70 - 199 mg/dL Blood 05/05/2024 8:39 PM SEARCH MARKETING ANALYST 05/05/2024 8:39 PM SEARCH MARKETING ANALYST Duyen Malloy MD LAB POCT ORDERABLES - ARELY CE Final Result Performing Organization Address [facility]/ZIP Co de Phone Number [facility] Department [place] [address] * POCT glucose (05/05/2024 4:48 PM SEARCH MARKETING ANALYST) Glucose, POC 123 70 - 199 mg/dL Comment:Glu2: RN/ Notified Glucose comment 1 Glu2: RN/ Notified [facility] Blood 05/05/2024 4:48 PM SEARCH MARKETING ANALYST 05/05/2024 4:48 PM SEARCH MARKETING ANALYST Duyen Malloy MD LAB POCT ORDERABLES - ARELY CE Final Result Performing Organization Address City/[facility]/ZIP Co de Phone Number [facility] [place] [address] * POCT glucose (05/05/2024 12:27 PM SEARCH MARKETING ANALYST) Glucose, POC 161 70 - 199 mg/dL Comment:Glu2: ALICIA/ Notified Glucose comment 1 Glu2: RN/ Notified [facility] Blood 05/05/2024 12:2 7 PM SEARCH MARKETING ANALYST 05/05/2024 12:27 PM SEARCH MARKETING ANALYST Duyen Malloy MD LAB POCT ORDERABLES - ARELY CE Final Result Performing Organization Address City/[facility]/ZIP Co de Phone Number [facility] [place] [address] * POCT glucose (05/05/2024 8:14 AM SEARCH MARKETING ANALYST) Glucose, POC 100 70 - 199 mg/dL Comment:Glu2: RN/ Notified Glucose comment 1 Glu2: RN/ Notified [facility] Blood 05/05/2024 8:14 AM SEARCH MARKETING ANALYST 05/05/2024 8:14 AM SEARCH MARKETING ANALYST Duyen Malloy MD LAB POCT ORDERABLES - ARELY CE Final Result Performing Organization Address City/[facility]/ZIP Co de Phone Number [facility] Department [place] [address] * (ABNORMAL) eGFR (05/05/2024 6:13 AM SEARCH MARKETING ANALYST) [facility] eGFR 16(L) >=60 mL/min/1. 73 m2 Comment: [...] last reviewed 2021. Blood 05/05/2024 6:13 AM SEARCH MARKETING ANALYST 05/05/2024 6:30 AM SEARCH MARKETING ANALYST us Duyen Malloy MD LAB BLOOD ORDERABLES Final Result [facility] Department [place] [address] * (ABNORMAL) Differential, auto (05/05/2024 6:13 AM SEARCH MARKETING ANALYST) [facility] Neutrophil abs 12.2(H) 1.5 - 6.5 K/cumm Imm gran abs 0.2(H) 0.0 - 0.1 K/cumm [facility] Lymphocyte abs 2.3 0.8 - 3.3 K/cumm [facility] Monocyte abs 1.6(H) 0.2 - 0.8 K/cumm [facility] Eosinophil abs 0.2 0.0 - 0.5 K/cumm [facility] Basophil abs 0.1 0.0 - 0.1 K/cumm [facility] Neutrophil pct 73.8 % [facility] Comment: Interpretive Data Percent cell count reference ranges are not reported, since discordance with absolute values may lead to misinterpretation of CBC data. Current Interpretive Data was last revised on 2017. Imm gran pct 1.3 % [facility] Comment: Interpretive Data Percent cell count reference ranges are not reported, since discordance with absolute values may lead to misinterpretation of CBC data. Current Interpretive Data was last revised on 2017. Lymphocyte pct 13.8 % [facility] Comment: Interpretive Data Percent cell count reference ranges are not reported, since discordance with absolute values may lead to misinterpretation of CBC data. Current Interpretive Data was last revised on 2017. Monocyte pct 9.5 % [facility] Comment: Interpretive Data Percent cell count reference ranges are not reported, since discordance with absolute values may lead to misinterpretation of CBC data. Current Interpretive Data was last revised on 2017. Eosinophil pct 1.2 % [facility] Comment: Interpretive Data Percent cell count reference ranges are not reported, since discordance with absolute values may lead to misinterpretation of CBC data. Current Interpretive Data was last revised on 2017. Basophil pct 0.4 % [facility] Comment: Interpretive Data Percent cell count reference ranges are not reported, since discordance with absolute values may lead to misinterpretation of CBC data. Current Interpretive Data was last revised on 2017. Blood 05/05/2024 6:13 AM SEARCH MARKETING ANALYST 05/05/2024 6:30 AM SEARCH MARKETING ANALYST us Duyen Malloy MD LAB BLOOD ORDERABLES Final Result [facility] Department of [facility] [place], [place] [id number] * (ABNORMAL) CBC with auto differential (05/05/2024 6:13 AM SEARCH MARKETING ANALYST) WBC 16.5(H) 3.8 - 9.9 K/cumm Hgb 7.6(L) 11.9 - 15.5 g/dL [facility] Hct 22.9(L) 35.6 - 45.5 % [facility] Plt 212 150 - 400 K/cumm [facility] MPV 9.5 9.1 - 12.3 fL [facility] RBC 2.58(L) 3.90 - 5.20 M/cumm [facility] MCV 88.8 81.3 - 96.4 fL [facility] MCH 29.5 27.1 - 33.3 pg [facility] MCHC 33.2 32.3 - 35.7 g/dL [facility] RDW CV 13.2 11.1 - 14.9 % [facility] RDW SD 43.1 35.7 - 48.1 fL [facility] NRBC abs 0.00 0.00 - 0.01 K/cumm [facility] Blood 05/05/2024 6:13 AM SEARCH MARKETING ANALYST 05/05/2024 6:30 AM SEARCH MARKETING ANALYST Duyen Malloy MD LAB BLOOD ORDERABLES Final Result [facility] Department [place] [address] * Hepatitis B core antibody, total Blood (05/05/2024 6:13 AM SEARCH MARKETING ANALYST) Pathologist [facility] Hep B core IgG/IgM Nonreactive Nonreactive Blood 05/05/2024 6:13 AM SEARCH MARKETING ANALYST 05/05/2024 6:30 AM SEARCH MARKETING ANALYST Duyen Malloy MD LAB MICROBIOLOGY - GENERAL ORDERABLES Final Result [facility] Department [place] [address] * Phosphorus (05/05/2024 6:13 AM SEARCH MARKETING ANALYST) Pathologist [facility] Phosphorus, pl 4.1 2.3 - 4.5 mg/dL Comment:Reviewed Blood 05/05/2024 6:13 AM SEARCH MARKETING ANALYST 05/05/2024 6:30 AM SEARCH MARKETING ANALYST Duyen Malloy MD LAB BLOOD ORDERABLES Final Result Performing Organization Address City/[facility]/ZIP Co de Phone Number [facility] Department [place] [address] * Magnesium (05/05/2024 6:13 AM SEARCH MARKETING ANALYST) [facility] Magnesium 2.1 1.4 - 2.5 mg/dL Blood 05/05/2024 6:13 AM SEARCH MARKETING ANALYST 05/05/2024 6:30 AM SEARCH MARKETING ANALYST Duyen Malloy MD LAB BLOOD ORDERABLES Final Result Performing Organization Address [facility] de Phone Number [facility] [place] [address] * (ABNORMAL) Basic metabolic panel (05/05/2024 6:13 AM SEARCH MARKETING ANALYST) [facility] Sodium 137 135 - 145 mmol/L Potassium, pl 3.0(L) 3.3 - 4.9 mmol/L [facility] Chloride 100 97 - 110 mmol/L [facility] CO2 28 22 - 32 mmol/L [facility] Anion gap 9 2 - 15 mmol/L [facility] BUN 10 6 - 25 mg/dL [facility] Creatinine 3.31(H) 0.60 - 1.10 mg/dL [facility] Glucose 105 70 - 199 mg/dL [facility] Comment: Interpretive Data Fasting glucose >/= 126 [...] 2022. Calcium 8.8 8.5 - 10.3 mg/dL [facility] Blood 05/05/2024 6:13 AM SEARCH MARKETING ANALYST 05/05/2024 6:30 AM SEARCH MARKETING ANALYST Duyen Malloy MD LAB BLOOD ORDERABLES Final Result Performing Organization Address City/[facility] Co de Phone Number [facility] [place] [address] * POCT glucose (05/04/2024 11:33 PM SEARCH MARKETING ANALYST) [facility] Glucose, POC 130 70 - 199 mg/dL Blood 05/04/2024 11:3 3 PM SEARCH MARKETING ANALYST 05/04/2024 11:33 PM SEARCH MARKETING ANALYST Duyen Malloy MD LAB POCT ORDERABLES - ARELY CE Final Result Performing Organization Address [facility] de Phone Number [facility] Department [place] [address] * Respiratory pathogen panel Nasopharyngeal (05/04/2024 9:54 PM SEARCH MARKETING ANALYST) [facility] Influenza A RNA Not Detected Not Detected Influenza B RNA Not Detected Not Detected [facility] RSV RNA Not Detected Not Detected [facility] COVID-19 RNA Not Detected Not Detected [facility] Coronavirus 229E RNA Not Detected Not Detected [facility] Coronavirus HKU1 RNA Not Detected Not Detected [facility] Coronavirus NL63 RNA Not Detected Not Detected [facility] Coronavirus OC43 RNA Not Detected Not Detected [facility] Adenovirus DNA Not Detected Not Detected [facility] Metapneumovirus RNA Not Detected Not Detected [facility] Rhinovirus/Enterov irus RNA Not Detected Not Detected [facility] Parainfluenza 1 RNA Not Detected Not Detected [facility] Parainfluenza 2 RNA Not Detected Not Detected [facility] Parainfluenza 3 RNA Not Detected Not Detected [facility] Parainfluenza 4 RNA Not Detected Not Detected [facility] B. pertussis DNA Not Detected Not Detected [facility] B. parapertussis DNA Not Detected Not Detected [facility] C. pneumoniae DNA Not Detected Not Detected [facility] M. pneumoniae DNA Not Detected Not Detected [facility] Nasopharyngeal 05/04/2024 9: 54 PM SEARCH MARKETING ANALYST 05/04/2024 10:38 PM SEARCH MARKETING ANALYST Narrative [facility] - 05/04/2024 11:36 PM SEARCH MARKETING ANALYST Is the Patient experiencing symptoms consistent with COVID?->Unknown Surveillance testing for transplant patient?->No Interpretive Data The [employer] Respiratory Panel (RP2.1) assay is a [...] patient with possible respiratory tract infection. The [employer] RP2.1 assay has FDA clearance for testing of MOLDER FLOOR swabs. The performance of additional specimen types has been assessed by the performing laboratory. The performance characteristics of this assay have been determined by [facility] Molecular Infectious Disease Laboratory. Current interpretive data was last revised on 21. Duyen Malloy MD LAB MICROBIOLOGY - GENERAL ORDERABLES Final Result [facility] Department [place] [address] * Blood culture Blood (05/04/2024 9:54 PM SEARCH MARKETING ANALYST) Report Final Report: No growth Blood 05/04/2024 9:54 PM SEARCH MARKETING ANALYST 05/04/2024 10:35 PM SEARCH MARKETING ANALYST Narrative [facility] - 05/09/2024 7:01 AM SEARCH MARKETING ANALYST Collection->New stick (time of line placement) 1. [...] performance characteristics have been verified by the [facility] Microbiology Laboratory. For questions about this culture, contact the Microbiology Laboratory at [phone]. Interpretive data was last revised on 24. Duyen Malloy MD LAB MICROBIOLOGY - GENERAL ORDERABLES Final Result [place] ANDREWS [facility] Department [place] [address] * Blood culture Blood (05/04/2024 9:54 PM SEARCH MARKETING ANALYST) Report Final Report: No growth Blood 05/04/2024 9:54 PM SEARCH MARKETING ANALYST 05/04/2024 10:34 PM SEARCH MARKETING ANALYST Narrative [facility] - 05/09/2024 7:01 AM SEARCH MARKETING ANALYST Collection->New stick (time of line placement) 1. [...] performance characteristics have been verified by the [facility]biology [facility]. For questions about this culture, contact the Microbiology Laboratory at [phone]. Interpretive data was last revised on 24. Duyen Malloy MD LAB MICROBIOLOGY - GENERAL ORDERABLES Final Result [facility] Department [place] [address] * XR Chest 1 View (05/04/2024 9:16 PM SEARCH MARKETING ANALYST) Anatomical Region Laterality Modality Body, Chest N/A Computed Radiogr aphy 05/05/2024 8:57 AM SEARCH MARKETING ANALYST Impressions 05/05/2024 8:57 AM SEARCH MARKETING ANALYST Comparison is made to chest radiograph dated 05/03/2024. Right internal jugular venous approach catheter tip overlies the superior vena cava. No right lung consolidation. Minimal left basilar atelectasis. No pleural effusion or pneumothorax. Normal cardiomediastinal silhouette. Electronically signed by: Maura Rosas M.D. Narrative 05/05/2024 8:57 AM SEARCH MARKETING ANALYST EXAMINATION: 1 view chest radiograph Procedure Note Maura Rosas MD - 05/05/2024 EXAMINATION: 1 view chest radiograph IMPRESSION: Comparison is made to chest radiograph dated 05/03/2024. Right internal jugular venous approach catheter tip overlies the superior vena cava. No right lung consolidation. Minimal left basilar atelectasis. No pleural effusion or pneumothorax. Normal cardiomediastinal silhouette. Electronically signed by: Maura Rosas M.D. us Duyen Malloy MD IMG XR PROCEDURES Final Re sult * POCT glucose (05/04/2024 8:28 PM SEARCH MARKETING ANALYST) Glucose, POC 197 70 - 199 mg/dL Blood 05/04/2024 8:28 PM SEARCH MARKETING ANALYST 05/04/2024 8:28 PM SEARCH MARKETING ANALYST Duyen Malloy MD LAB POCT ORDERABLES - ARELY CE Final Result Performing Organization Address City/State/[facility] Co de Phone Number [facility] Department [place] [address] * POCT glucose (05/04/2024 4:40 PM SEARCH MARKETING ANALYST) Glucose, POC 80 70 - 199 mg/dL Comment:Glu2: RN/MD Notified Glucose comment 1 Glu2: RN/MD Notified [facility] Blood 05/04/2024 4:40 PM SEARCH MARKETING ANALYST 05/04/2024 4:40 PM SEARCH MARKETING ANALYST Duyen Malloy MD LAB POCT ORDERABLES - ARELY CE Final Result Performing Organization Address [facility] de Phone Number [facility] [place] [address] * POCT glucose (05/04/2024 2:39 PM SEARCH MARKETING ANALYST) Glucose, POC 158 70 - 199 mg/dL Comment:Glu2: RN/MD Notified Glucose comment 1 Glu2: RN/MD Notified [facility] Blood 05/04/2024 2:39 PM SEARCH MARKETING ANALYST 05/04/2024 2:39 PM SEARCH MARKETING ANALYST Duyen Malloy MD LAB POCT ORDERABLES - ARELY CE Final Result Performing Organization Address [facility] de Phone Number [facility] [place] [address] * POCT glucose (05/04/2024 12:25 PM SEARCH MARKETING ANALYST) Glucose, POC 71 70 - 199 mg/dL Comment:Glu2: RN/ Notified Glucose comment 1 Glu2: RN/ Notified [facility] Blood 05/04/2024 12:2 5 PM SEARCH MARKETING ANALYST 05/04/2024 12:25 PM SEARCH MARKETING ANALYST Duyen Malloy MD LAB POCT ORDERABLES - ARELY CE Final Result Performing Organization Address [facility] Co de Phone Number [facility] [employer] [address] * (ABNORMAL) eGFR (05/04/2024 10:45 AM SEARCH MARKETING ANALYST) eGFR 8(L) >=60 mL/min/1. 73 m2 Comment: [...] reviewed 2021. Blood 05/04/2024 10:4 5 AM SEARCH MARKETING ANALYST 05/04/2024 10:56 AM SEARCH MARKETING ANALYST us Duyen Malloy MD LAB BLOOD ORDERABLES Final Result [facility] [place] [address] * (ABNORMAL) Differential, auto (05/04/2024 10:45 AM SEARCH MARKETING ANALYST) Neutrophil abs 11.5(H) 1.5 - 6.5 K/cumm Imm gran abs 0.3(H) 0.0 - 0.1 K/cumm [facility] Lymphocyte abs 1.5 0.8 - 3.3 K/cumm [facility] Monocyte abs 1.4(H) 0.2 - 0.8 K/cumm [facility] Eosinophil abs 0.1 0.0 - 0.5 K/cumm [facility] Basophil abs 0.1 0.0 - 0.1 K/cumm [facility] Neutrophil pct 77.5 % [facility] Comment: Interpretive Data Percent cell count reference ranges are not reported, since discordance with absolute values may lead to misinterpretation of CBC data. Current Interpretive Data was last revised on 2017. Imm gran pct 2.3 % [facility] Comment: Interpretive Data Percent cell count reference ranges are not reported, since discordance with absolute values may lead to misinterpretation of CBC data. Current Interpretive Data was last revised on 2017. Lymphocyte pct 10.1 % [facility] Comment: Interpretive Data Percent cell count reference ranges are not reported, since discordance with absolute values may lead to misinterpretation of CBC data. Current Interpretive Data was last revised on 2017. Monocyte pct 9.2 % [facility] Comment: Interpretive Data Percent cell count reference ranges are not reported, since discordance with absolute values may lead to misinterpretation of CBC data. Current Interpretive Data was last revised on 2017. Eosinophil pct 0.6 % [facility] Comment: Interpretive Data Percent cell count reference ranges are not reported, since discordance with absolute values may lead to misinterpretation of CBC data. Current Interpretive Data was last revised on 2017. Basophil pct 0.3 % [facility] Comment: Interpretive Data Percent cell count reference ranges are not reported, since discordance with absolute values may lead to misinterpretation of CBC data. Current Interpretive Data was last revised on 2017. Blood 05/04/2024 10:4 5 AM SEARCH MARKETING ANALYST 05/04/2024 10:56 AM SEARCH MARKETING ANALYST us Duyen Malloy MD LAB BLOOD ORDERABLES Final Result [facility] [place] [address] * (ABNORMAL) CBC with auto differential (05/04/2024 10:45 AM SEARCH MARKETING ANALYST) WBC 14.8(H) 3.8 - 9.9 K/cumm Hgb 8.0(L) 11.9 - 15.5 g/dL [facility] Hct 23.6(L) 35.6 - 45.5 % [facility] Plt 234 150 - 400 K/cumm [facility] MPV 9.4 9.1 - 12.3 fL [facility] RBC 2.66(L) 3.90 - 5.20 M/cumm [facility] MCV 88.7 81.3 - 96.4 fL [facility] MCH 30.1 27.1 - 33.3 pg [facility] MCHC 33.9 32.3 - 35.7 g/dL [facility] RDW CV 13.5 11.1 - 14.9 % [facility] RDW SD 43.8 35.7 - 48.1 fL [facility] NRBC abs 0.00 0.00 - 0.01 K/cumm [facility] Blood 05/04/2024 10:4 5 AM SEARCH MARKETING ANALYST 05/04/2024 10:56 AM SEARCH MARKETING ANALYST Duyen Malloy MD LAB BLOOD ORDERABLES Final Result Performing Organization Address [facility]/ZIP Co de Phone Number [facility] [employer] [place] [address] * (ABNORMAL) Phosphorus (05/04/2024 10:45 AM SEARCH MARKETING ANALYST) Phosphorus, pl 6.3(H) 2.3 - 4.5 mg/dL Blood 05/04/2024 10:4 5 AM SEARCH MARKETING ANALYST 05/04/2024 10:56 AM SEARCH MARKETING ANALYST Rani Corley MD LAB BLOOD ORDERABLES Final Re sult Performing Organization Address [facility] Co de Phone Number [facility] [place] [address] * Magnesium (05/04/2024 10:45 AM SEARCH MARKETING ANALYST) Magnesium 2.0 1.4 - 2.5 mg/dL Blood 05/04/2024 10:4 5 AM SEARCH MARKETING ANALYST 05/04/2024 10:56 AM SEARCH MARKETING ANALYST Rani Corley MD LAB BLOOD ORDERABLES Final Re sult Performing Organization Address [facility] Co de Phone Number [facility] [place] [address] * (ABNORMAL) Basic metabolic panel (05/04/2024 10:45 AM SEARCH MARKETING ANALYST) Sodium 136 135 - 145 mmol/L Potassium, pl 3.0(L) 3.3 - 4.9 mmol/L [facility] Chloride 99 97 - 110 mmol/L [facility] CO2 24 22 - 32 mmol/L [facility] Anion gap 13 2 - 15 mmol/L [facility] BUN 24 6 - 25 mg/dL [facility] Creatinine 5.60(H) 0.60 - 1.10 mg/dL [facility] Glucose 75 70 - 199 mg/dL [facility] Comment: Interpretive Data Fasting glucose >/= 126 [...] 2022. Calcium 9.0 8.5 - 10.3 mg/dL [facility] Blood 05/04/2024 10:4 5 AM SEARCH MARKETING ANALYST 05/04/2024 10:56 AM SEARCH MARKETING ANALYST us Rani Corley MD LAB BLOOD ORDERABLES Final Re sult [facility] [place] [address] * POCT glucose (05/04/2024 8:18 AM SEARCH MARKETING ANALYST) Glucose, POC 101 70 - 199 mg/dL Comment:Glu2: RN/ Notified Glucose comment 1 Glu2: RN/ Notified [facility] Blood 05/04/2024 8:18 AM SEARCH MARKETING ANALYST 05/04/2024 8:18 AM SEARCH MARKETING ANALYST Duyen Malloy MD LAB POCT ORDERABLES - ARELY CE Final Result Performing Organization Address [facility] Co de Phone Number [facility] [place] [address] * (ABNORMAL) eGFR (05/03/2024 11:05 PM SEARCH MARKETING ANALYST) eGFR 10(L) >=60 mL/min/1. 73 m2 Comment: [...] reviewed 2021. Blood 05/03/2024 11:0 5 PM SEARCH MARKETING ANALYST 05/03/2024 11:43 PM SEARCH MARKETING ANALYST Rani Corley MD LAB BLOOD ORDERABLES Final Re sult Performing Organization Address [facility]/ZIP Co de Phone Number [facility] [place] [address] * (ABNORMAL) Phosphorus (05/03/2024 11:05 PM SEARCH MARKETING ANALYST) Phosphorus, pl 4.9(H) 2.3 - 4.5 mg/dL Blood 05/03/2024 11:0 5 PM SEARCH MARKETING ANALYST 05/03/2024 11:43 PM SEARCH MARKETING ANALYST Rani Corley MD LAB BLOOD ORDERABLES Final Re sult Performing Organization Address City/[facility]/ZIP Co de Phone Number [facility] [place] [address] * Magnesium (05/03/2024 11:05 PM SEARCH MARKETING ANALYST) Pathologist [facility] Magnesium 1.9 1.4 - 2.5 mg/dL Blood 05/03/2024 11:0 5 PM SEARCH MARKETING ANALYST 05/03/2024 11:43 PM SEARCH MARKETING ANALYST us Rani Corley MD LAB BLOOD ORDERABLES Final Re sult Performing Organization Address [facility] de Phone Number [facility] Department [place] [address] * (ABNORMAL) Basic metabolic panel (05/03/2024 11:05 PM SEARCH MARKETING ANALYST) [facility] Sodium 137 135 - 145 mmol/L Potassium, pl 3.0(L) 3.3 - 4.9 mmol/L [facility] Chloride 98 97 - 110 mmol/L [facility] CO2 23 22 - 32 mmol/L [facility] Anion gap 16(H) 2 - 15 mmol/L [facility] BUN 24 6 - 25 mg/dL [facility] Creatinine 4.64(H) 0.60 - 1.10 mg/dL [facility] Glucose 107 70 - 199 mg/dL [facility] Comment: Interpretive Data Fasting glucose >/= 126 [...] 2022. Calcium 8.5 8.5 - 10.3 mg/dL [facility] Blood 05/03/2024 11:0 5 PM SEARCH MARKETING ANALYST 05/03/2024 11:43 PM SEARCH MARKETING ANALYST us Rani Corley MD LAB BLOOD ORDERABLES Final Re sult Performing Organization Address [facility] Co de Phone Number [facility] [place] [employer] [place] [address] * POCT glucose (05/03/2024 8:27 PM SEARCH MARKETING ANALYST) Pathologist [facility] Glucose, POC 84 70 - 199 mg/dL Blood 05/03/2024 8:27 PM SEARCH MARKETING ANALYST 05/03/2024 8:27 PM SEARCH MARKETING ANALYST us Rani Corley MD LAB POCT ORDERABLES - DEVICE Final Result Performing Organization Address [facility] de Phone Number [facility] [place] [employer] [place] [address] * Transfuse RBC (05/03/2024 5:40 PM SEARCH MARKETING ANALYST) Blood us Rani Corley MD BLOOD TRANSFUSION ORDERABLES Edited Result - Final Performing Organization Address [facility] de Phone Number [facility] Department [place] [place] [address] * (ABNORMAL) Hemoglobin and hematocrit (05/03/2024 5:05 PM SEARCH MARKETING ANALYST) [facility] Hgb 7.3(L) 11.9 - 15.5 g/dL Hct 21.7(L) 35.6 - 45.5 % [facility] Blood 05/03/2024 5:05 PM SEARCH MARKETING ANALYST 05/03/2024 5:24 PM SEARCH MARKETING ANALYST us Rani Corley MD LAB BLOOD ORDERABLES Final Re sult Performing Organization Address [facility] Co de Phone Number [facility] [place] [address] * (ABNORMAL) eGFR (05/03/2024 4:13 PM SEARCH MARKETING ANALYST) eGFR 7(L) >=60 mL/min/1. 73 m2 Comment: [...] last reviewed 2021. Blood 05/03/2024 4:13 PM SEARCH MARKETING ANALYST 05/03/2024 4:23 PM SEARCH MARKETING ANALYST Rani Corley MD LAB BLOOD ORDERABLES Final Re sult Performing Organization Address [facility] Co de Phone Number [facility] Department [place] [address] * (ABNORMAL) Phosphorus (05/03/2024 4:13 PM SEARCH MARKETING ANALYST) Phosphorus, pl 6.9(H) 2.3 - 4.5 mg/dL Blood 05/03/2024 4:13 PM SEARCH MARKETING ANALYST 05/03/2024 4:23 PM SEARCH MARKETING ANALYST Rani Corley MD LAB BLOOD ORDERABLES Final Re sult Performing Organization Address City/[facility] Co de Phone Number [facility] Department [place] [address] * Magnesium (05/03/2024 4:13 PM SEARCH MARKETING ANALYST) Pathologist [facility] Magnesium 1.9 1.4 - 2.5 mg/dL Blood 05/03/2024 4:13 PM SEARCH MARKETING ANALYST 05/03/2024 4:23 PM SEARCH MARKETING ANALYST Rani Corley MD LAB BLOOD ORDERABLES Final Re sult [facility] [place] [address] * (ABNORMAL) Basic metabolic panel (05/03/2024 4:13 PM SEARCH MARKETING ANALYST) Pathologist [facility] Sodium 134(L) 135 - 145 mmol/L Potassium, pl 3.6 3.3 - 4.9 mmol/L [facility] Chloride 93(L) 97 - 110 mmol/L [facility] CO2 21(L) 22 - 32 mmol/L [facility] Anion gap 20(H) 2 - 15 mmol/L [facility] BUN 35(H) 6 - 25 mg/dL [facility] Creatinine 6.61(H) 0.60 - 1.10 mg/dL [facility] Glucose 115 70 - 199 mg/dL [facility] Comment: Interpretive Data Fasting glucose >/= 126 [...] 2022. Calcium 8.0(L) 8.5 - 10.3 mg/dL [facility] Blood 05/03/2024 4:13 PM SEARCH MARKETING ANALYST 05/03/2024 4:23 PM SEARCH MARKETING ANALYST Rani Corley MD LAB BLOOD ORDERABLES Final Re sult Performing Organization Address [facility] Co de Phone Number [facility] [place] [employer] [place] [address] * POCT glucose (05/03/2024 3:57 PM SEARCH MARKETING ANALYST) Pathologist [facility] Glucose, POC 158 70 - 199 mg/dL Blood 05/03/2024 3:57 PM SEARCH MARKETING ANALYST 05/03/2024 3:57 PM SEARCH MARKETING ANALYST Rani Corley MD LAB POCT ORDERABLES - DEVICE Final Result Performing Organization Address [facility] [place] [address] * Prepare RBC: 1 Units (05/03/2024 1:35 PM SEARCH MARKETING ANALYST) [facility] Product code [id number] Unit Number [id number] [facility] Product Blood Type OPOS [facility] Dispense Status PRESUMED TRANSFUSED [facility] Blood 05/03/2024 1:35 PM SEARCH MARKETING ANALYST 05/03/2024 1:37 PM SEARCH MARKETING ANALYST Narrative [facility] - 05/04/2024 6:01 AM SEARCH MARKETING ANALYST Are special requirements needed? (All products are leukoreduced and CMV- safe)- >No Date required:-[id number] LRRBC # of [id number] Reasons:-Hgb <7 g/dL} Rani Corley MD BLOOD BANK PRODUCT ORDERABLES Final Result Performing Organization Address [facility] Co de Phone Number [facility] [employer] [address] * (ABNORMAL) Differential, auto (05/03/2024 12:51 PM SEARCH MARKETING ANALYST) [facility] Neutrophil abs 10.3(H) 1.5 - 6.5 K/cumm Imm gran abs 0.3(H) 0.0 - 0.1 K/cumm [facility] Lymphocyte abs 1.9 0.8 - 3.3 K/cumm [facility] Monocyte abs 1.2(H) 0.2 - 0.8 K/cumm [facility] Eosinophil abs 0.1 0.0 - 0.5 K/cumm [facility] Basophil abs 0.0 0.0 - 0.1 K/cumm [facility] Neutrophil pct 74.4 % [facility] Comment: Interpretive Data Percent cell count reference ranges are not reported, since discordance with absolute values may lead to misinterpretation of CBC data. Current Interpretive Data was last revised on 2017. Imm gran pct 2.4 % [facility] Comment: Interpretive Data Percent cell count reference ranges are not reported, since discordance with absolute values may lead to misinterpretation of CBC data. Current Interpretive Data was last revised on 2017. Lymphocyte pct 14.1 % [facility] Comment: Interpretive Data Percent cell count reference ranges are not reported, since discordance with absolute values may lead to misinterpretation of CBC data. Current Interpretive Data was last revised on 2017. Monocyte pct 8.6 % [facility] Comment: Interpretive Data Percent cell count reference ranges are not reported, since discordance with absolute values may lead to misinterpretation of CBC data. Current Interpretive Data was last revised on 2017. Eosinophil pct 0.4 % [facility] Comment: Interpretive Data Percent cell count reference ranges are not reported, since discordance with absolute values may lead to misinterpretation of CBC data. Current Interpretive Data was last revised on 2017. Basophil pct 0.1 % [facility] Comment: Interpretive Data Percent cell count reference ranges are not reported, since discordance with absolute values may lead to misinterpretation of CBC data. Current Interpretive Data was last revised on 2017. Blood 05/03/2024 12:5 1 PM SEARCH MARKETING ANALYST 05/03/2024 1:17 PM SEARCH MARKETING ANALYST us Maxwell Busby MD LAB BLOOD ORDERABLES Fin al Result [facility] [place] [address] * (ABNORMAL) CBC with auto differential (05/03/2024 12:51 PM SEARCH MARKETING ANALYST) WBC 13.8(H) 3.8 - 9.9 K/cumm Hgb 6.3(C) 11.9 - 15.5 g/dL [facility] Comment:Consistent with prev ious results Hct 18.7(L) 35.6 - 45.5 % [facility] Plt 248 150 - 400 K/cumm [facility] MPV 9.4 9.1 - 12.3 fL [facility] RBC 2.04(L) 3.90 - 5.20 M/cumm [facility] MCV 91.7 81.3 - 96.4 fL [facility] MCH 30.9 27.1 - 33.3 pg [facility] MCHC 33.7 32.3 - 35.7 g/dL [facility] RDW CV 13.2 11.1 - 14.9 % [facility] RDW SD 44.0 35.7 - 48.1 fL [facility] NRBC abs 0.03(H) 0.00 - 0.01 K/cumm [facility] Blood 05/03/2024 12:5 1 PM SEARCH MARKETING ANALYST 05/03/2024 1:17 PM SEARCH MARKETING ANALYST us Maxwell Busby MD LAB BLOOD ORDERABLES Fin al Result Performing Organization Address [facility] Co de Phone Number [facility] [place] [address] * Potassium (05/03/2024 12:51 PM SEARCH MARKETING ANALYST) Pathologist [facility] Potassium, pl 3.9 3.3 - 4.9 mmol/L Blood 05/03/2024 12:5 1 PM SEARCH MARKETING ANALYST 05/03/2024 1:27 PM SEARCH MARKETING ANALYST us Rani Corley MD LAB BLOOD ORDERABLES Final Re sult Performing Organization Address [facility] Co de Phone Number [facility] [employer] [place], [place] [id number] * POCT glucose (05/03/2024 11:38 AM SEARCH MARKETING ANALYST) Glucose, POC 99 70 - 199 mg/dL Blood 05/03/2024 11:3 8 AM SEARCH MARKETING ANALYST 05/03/2024 11:38 AM SEARCH MARKETING ANALYST us Rani Corley MD LAB POCT ORDERABLES - DEVICE Final Result Performing Organization Address [facility] de Phone Number MINERVA [facility] Department of [employer] [place], [place] [id number] * US Vein Duplex Upper Extremity Bilateral Complete (05/03/2024 11:31 AM SEARCH MARKETING ANALYST) Anatomical Region Laterality Modality Vascular Bilateral Ultrasound 05/03/2024 10:0 5 AM SEARCH MARKETING ANALYST Narrative 05/04/2024 10:15 AM SEARCH MARKETING ANALYST [facility] - Department of Vascular Surgery, Vascular Laboratory [address] [place] [id number] Upper Extremity Venous Ultrasound Report Patient Name: DARLINE CUI L : 1965 (59y 1m) Study Date: 05/03/2024 10:05:46 AM Gender: F Tech: Location: [id number] Ref Provider: JAYESH HUTCHINS Quality: Adequate Order Provider: JAYESH HUTCHINS PROCEDURES: Vascular Report: Venous Duplex imaging was performed bilaterally in the upper extremities. The internal jugular, subclavian and axillary veins were evaluated for patency, spontaneity and phasicity with Doppler, compression and augmentation maneuvers. The brachial, basilic and cephalic veins were also evaluated with compression maneuvers. INDICATIONS: Pain in Arm, Right - FINDINGS: Performing Family Dentist: Lara Fisher RVT. Bilateral: Venous Doppler signals [...] Jourdan Szymanski MD FACS 05/04/2024 10:14:15 AM SEARCH MARKETING ANALYST Procedure Note Jourdan Szymanski MD - 05/04/2024 [facility] - Department of Vascular Surgery,Vascular Laboratory [address] [place] [id number] Upper Extremity Venous Ultrasound Report Patient Name: DARLINE CUI L : 1965 (59y 1m) Study Date: 05/03/2024 10:05:46 AM Gender: F Tech: Location: [id number] Ref Provider: JAYESH HUTCHINS Quality: Adequate Order Provider: JAYESH HUTCHINS PROCEDURES: Vascular Report: Venous Duplex imaging was performed bilaterally in the upper extremities.The internal jugular, subclavian and axillary veins were evaluated for patency,spontaneity and phasicity with Doppler, compression and augmentation maneuvers. Thebrachial, basilic and cephalic veins were also evaluated with compression maneuvers. INDICATIONS: Pain in Arm, Right - FINDINGS: Performing Family Dentist: Lara Fisher RVT. Bilateral: Venous Doppler signals [...] provided above. Electronically Signed By: Jourdan Szymanski MD, FACS 05/04/2024 10:14:15 AM SEARCH MARKETING ANALYST us Jayesh Hutchins MD IMG US PROCEDURES Final Resu lt * TRANSTHORACIC ECHO (TTE) COMPLETE W DOPPLER/CF W CONTRAST (05/03/2024 10:20 AM SEARCH MARKETING ANALYST) Anatomical Region Laterality Modality Ultrasound 05/03/2024 8:21 AM SEARCH MARKETING ANALYST Narrative 05/03/2024 11:27 AM SEARCH MARKETING ANALYST [facility] [place] [address] Transthoracic Echocardiographic Report Patient Name: DARLINE CUI L : 1965 (59y 1m) Gender: F Study Date: 05/03/2024 08:21:00 AM Ht(Inch): 60 Wt(Lb): 111.99 BSA: 1.47 Family Dentist: Katya Cisneros RDCS Location: [id number] Order Provider: RANI CORLEY Heart Rate: 108 BMI: 21.87 BP: 95 / 53 Quality: The study images were of technically good quality. Ref Provider: RANI CORLEY PROCEDURES: Echocardiographic Report: ([id number], [id number]) Transthoracic complete echo with strain imaging and [...] By: Walker Saba M.D. 05/03/2024 11:26:10 AM SEARCH MARKETING ANALYST Electronically Signed By: Walker Saba M.D. 05/03/2024 11:26:10 AM SEARCH MARKETING ANALYST Procedure Note Walker Saba MD - 05/03/2024 [facility] [place] [address] Transthoracic Echocardiographic Report Patient Name: DARLINE CUI L : 1965 (59y 1m) Gender: F Study Date: 05/03/2024 08:21:00 AM Ht(Inch): 60 Wt(Lb): 111.99 BSA: 1.47 Family Dentist: Katya Cisneros RDCS Location: [id number] Order Provider:RANI CORLEY Heart Rate: 108 BMI: 21.87 BP: 95 / 53 Quality: The study images were oftechnically good quality. Ref Provider: RANI CORLEY PROCEDURES: Echocardiographic Report: ([id number], [id number]) Transthoracic complete echo withstrain imaging and contrast, [...] LA Length 2C 3.15 cm MV Decel [id number] msec [ 104.00 - 258.00 ] LA [...] By: Walker Saba M.D. 05/03/2024 11:26:10 AM SEARCH MARKETING ANALYST Electronically Signed By: Walker Saba M.D. 05/03/2024 11:26:10 AM SEARCH MARKETING ANALYST us Rani Corley MD CV ECHO PROCEDURES Final Resu lt * POCT glucose (05/03/2024 9:53 AM SEARCH MARKETING ANALYST) Glucose, POC 116 70 - 199 mg/dL Blood 05/03/2024 9:53 AM SEARCH MARKETING ANALYST 05/03/2024 9:53 AM SEARCH MARKETING ANALYST Rani Corley MD LAB POCT ORDERABLES - DEVICE Final Result Performing Organization Address [facility]/ZIP Co de Phone Number [facility] Department [place] [employer] [place] [address] * POCT glucose (05/03/2024 9:01 AM SEARCH MARKETING ANALYST) [facility] Signature Glucose, POC 86 70 - 199 mg/dL Blood 05/03/2024 9:01 AM SEARCH MARKETING ANALYST 05/03/2024 9:01 AM SEARCH MARKETING ANALYST Rani Corley MD LAB POCT ORDERABLES - DEVICE Final Result Performing Organization Address [facility]/State/ZIP Co de Phone Number [facility] [place] [address] * (ABNORMAL) eGFR (05/03/2024 8:29 AM SEARCH MARKETING ANALYST) eGFR 7(L) >=60 mL/min/1. 73 m2 Comment: [...] last reviewed 2021. Blood 05/03/2024 8:29 AM SEARCH MARKETING ANALYST 05/03/2024 9:19 AM SEARCH MARKETING ANALYST us Rani Corley MD LAB BLOOD ORDERABLES Final Re sult [facility] [place] [address] * (ABNORMAL) Differential, auto (05/03/2024 8:29 AM SEARCH MARKETING ANALYST) Neutrophil abs 11.9(H) 1.5 - 6.5 K/cumm Imm gran abs 0.4(H) 0.0 - 0.1 K/cumm [facility] Lymphocyte abs 1.7 0.8 - 3.3 K/cumm [facility] Monocyte abs 1.0(H) 0.2 - 0.8 K/cumm [facility] Eosinophil abs 0.0 0.0 - 0.5 K/cumm [facility] Basophil abs 0.0 0.0 - 0.1 K/cumm [facility] Neutrophil pct 78.6 % [facility] Comment: Interpretive Data Percent cell count reference ranges are not reported, since discordance with absolute values may lead to misinterpretation of CBC data. Current Interpretive Data was last revised on 2017. Imm gran pct 2.8 % [facility] Comment: Interpretive Data Percent cell count reference ranges are not reported, since discordance with absolute values may lead to misinterpretation of CBC data. Current Interpretive Data was last revised on 2017. Lymphocyte pct 11.5 % MINERVA ANDREWS Comment: Interpretive Data Percent cell count reference ranges are not reported, since discordance with absolute values may lead to misinterpretation of CBC data. Current Interpretive Data was last revised on 2017. Monocyte pct 6.7 % MINERVA ANDREWS Comment: Interpretive Data Percent cell count reference ranges are not reported, since discordance with absolute values may lead to misinterpretation of CBC data. Current Interpretive Data was last revised on 2017. Eosinophil pct 0.3 % [facility]A [facility] Comment: Interpretive Data Percent cell count reference ranges are not reported, since discordance with absolute values may lead to misinterpretation of CBC data. Current Interpretive Data was last revised on 2017. Basophil pct 0.1 % [facility] Comment: Interpretive Data Percent cell count reference ranges are not reported, since discordance with absolute values may lead to misinterpretation of CBC data. Current Interpretive Data was last revised on 2017. Blood 05/03/2024 8:29 AM SEARCH MARKETING ANALYST 05/03/2024 9:17 AM SEARCH MARKETING ANALYST Rani Corley MD LAB BLOOD ORDERABLES Final Re sult [facility] Department [place] [address] * Critical Result Callback Chemistry (05/03/2024 8:29 AM SEARCH MARKETING ANALYST) Date Notified [id number] Time Notified 1008 MINERVA ANDREWS TestName Glucose MINERVA MOORE Called/Read Back Kori Flores Credentials RN MINERVA MOORE Called By DON MOORE Blood 05/03/2024 8:29 AM SEARCH MARKETING ANALYST 05/03/2024 9:19 AM SEARCH MARKETING ANALYST us Rani Corley MD LAB BLOOD ORDERABLES Final Re sult Performing Organization Address [facility] Co de Phone Number [facility] Department [place] [address] * (ABNORMAL) CBC with auto differential (05/03/2024 8:29 AM SEARCH MARKETING ANALYST) WBC 15.2(H) 3.8 - 9.9 K/cumm Hgb 6.2(C) 11.9 - 15.5 g/dL [facility] Comment:Consistent with prev ious results Hct 18.8(L) 35.6 - 45.5 % [facility] Plt 260 150 - 400 K/cumm [facility] MPV 10.1 9.1 - 12.3 fL [facility] RBC 2.05(L) 3.90 - 5.20 M/cumm [facility] MCV 91.7 81.3 - 96.4 fL [facility] MCH 30.2 27.1 - 33.3 pg [facility] MCHC 33.0 32.3 - 35.7 g/dL [facility] RDW CV 13.4 11.1 - 14.9 % [facility] RDW SD 45.6 35.7 - 48.1 fL [facility] NRBC abs 0.04(H) 0.00 - 0.01 K/cumm [facility] Blood 05/03/2024 8:29 AM SEARCH MARKETING ANALYST 05/03/2024 9:17 AM SEARCH MARKETING ANALYST Rani Corley MD LAB BLOOD ORDERABLES Final Re sult Performing Organization Address City/[facility]/ZIP Co de Phone Number [facility] Department [place] [address] * (ABNORMAL) Reticulocyte Count (05/03/2024 8:29 AM SEARCH MARKETING ANALYST) Pathologist [facility] Retics, absolute 0.034 0.020 - 0.087 M/cumm Retics 1.7 0.4 - 2.9 % [facility] Reticulocyte Hgb 27.1(L) 30.5 - 38.0 pg [facility] Blood 05/03/2024 8:29 AM SEARCH MARKETING ANALYST 05/03/2024 9:14 AM SEARCH MARKETING ANALYST Jayesh Hutchins MD LAB BLOOD ORDERABLES Final R esult Performing Organization Address [facility] Co de Phone Number [facility] [place] [address] * (ABNORMAL) Phosphorus (05/03/2024 8:29 AM SEARCH MARKETING ANALYST) Phosphorus, pl 5.8(H) 2.3 - 4.5 mg/dL Comment:Repeated and Verifie d Blood 05/03/2024 8:29 AM SEARCH MARKETING ANALYST 05/03/2024 9:13 AM SEARCH MARKETING ANALYST Rani Corley MD LAB BLOOD ORDERABLES Final Re sult Performing Organization Address [facility] de Phone Number [facility] Department [place] [address] * Magnesium (05/03/2024 8:29 AM SEARCH MARKETING ANALYST) Pathologist [facility] Magnesium 1.8 1.4 - 2.5 mg/dL Blood 05/03/2024 8:29 AM SEARCH MARKETING ANALYST 05/03/2024 9:13 AM SEARCH MARKETING ANALYST Rani Corley MD LAB BLOOD ORDERABLES Final Re sult Performing Organization Address [facility] de Phone Number [facility] [place] [address] * (ABNORMAL) Lactate dehydrogenase (LD) (05/03/2024 8:29 AM SEARCH MARKETING ANALYST) Lactate dehydrogenase (LDH) 257(H) 100 - 250 Units/L Blood 05/03/2024 8:29 AM SEARCH MARKETING ANALYST 05/03/2024 9:13 AM SEARCH MARKETING ANALYST Rani Corley MD LAB BLOOD ORDERABLES Final Re sult Performing Organization Address [facility]/ZIP Co de Phone Number [facility] Perla [facility] [place] [address] * (ABNORMAL) Basic metabolic panel (05/03/2024 8:29 AM SEARCH MARKETING ANALYST) Sodium 135 135 - 145 mmol/L Potassium, pl 4.1 3.3 - 4.9 mmol/L [facility] Chloride 95(L) 97 - 110 mmol/L [facility] CO2 22 22 - 32 mmol/L [facility] Anion gap 18(H) 2 - 15 mmol/L [facility] BUN 34(H) 6 - 25 mg/dL [facility] Creatinine 6.17(H) 0.60 - 1.10 mg/dL [facility] Glucose 50(C) 70 - 199 mg/dL [facility] Comment: Glycolysis suspected; suggest sending a khan [...] 2022. Calcium 8.0(L) 8.5 - 10.3 mg/dL [facility] Blood 05/03/2024 8:29 AM SEARCH MARKETING ANALYST 05/03/2024 9:13 AM SEARCH MARKETING ANALYST Rani Corley MD LAB BLOOD ORDERABLES Final Re sult Performing Organization Address [facility]/ZIP Co de Phone Number [facility] Per[facility] [place] [address] * (ABNORMAL) POCT glucose (05/03/2024 8:21 AM SEARCH MARKETING ANALYST) Glucose, POC 68(L) 70 - 199 mg/dL Blood 05/03/2024 8:21 AM SEARCH MARKETING ANALYST 05/03/2024 8:21 AM SEARCH MARKETING ANALYST us Rani Corley MD LAB POCT ORDERABLES - DEVICE Final Result Performing Organization Address [facility] Co de Phone Number [facility] [place] [place] [address] * Transfuse RBC (05/03/2024 5:26 AM SEARCH MARKETING ANALYST) Blood us Rani Corley MD BLOOD TRANSFUSION ORDERABLES Final Result Performing Organization Address [facility] de Phone Number [facility] [place] [address] * (ABNORMAL) Protein / creatinine ratio, urine, random (05/03/2024 5:15 AM SEARCH MARKETING ANALYST) Pathologist [facility] Protein, ur, quant 46.9 mg/dL Comment: Interpretive Data No reference range established. Current interpretive data was last revised 2018. Creatinine Ur 80.5 mg/dL [facility] Comment: Interpretive Data No reference range established. Current interpretive data was last revised 2018. Protein/creatinin e ratio 582.6(H) 0.0 - 180.0 mg/g CR [facility] Urine 05/03/2024 5:15 AM SEARCH MARKETING ANALYST 05/03/2024 5:55 AM SEARCH MARKETING ANALYST us Rani Corley MD LAB URINE ORDERABLES Final Re sult Performing Organization Address [facility] Co de Phone Number [facility] [place] [place] [address] * Sodium, urine, random (05/03/2024 5:15 AM SEARCH MARKETING ANALYST) Sodium, ur <20 mmol/L Comment: Interpretive Data No reference range established. Current interpretive data was last revised 2018. Urine (Urine, Clean Catch) 05/03/2024 5:15 AM SEARCH MARKETING ANALYST 05/03/2024 5:55 AM SEARCH MARKETING ANALYST us Rani Corley MD LAB URINE ORDERABLES Final Re sult Performing Organization Address [facility] Co de Phone Number [facility] [place] [address] * Potassium, urine, random (05/03/2024 5:15 AM SEARCH MARKETING ANALYST) Potassium conc, ur 79.2 mmol/L Comment: Interpretive Data No reference range established. Current interpretive data was last revised 2018. Urine (Urine, Clean Catch) 05/03/2024 5:15 AM SEARCH MARKETING ANALYST 05/03/2024 5:55 AM SEARCH MARKETING ANALYST us Rani Corley MD LAB URINE ORDERABLES Final Re sult Performing Organization Address [facility] de Phone Number [facility] [place] [address] * Chloride, urine, random (05/03/2024 5:15 AM SEARCH MARKETING ANALYST) Chloride, ur <25 mmol/L Comment: Interpretive Data No reference range established. Current interpretive data was last revised 2018. Urine (Urine, Clean Catch) 05/03/2024 5:15 AM SEARCH MARKETING ANALYST 05/03/2024 5:55 AM SEARCH MARKETING ANALYST us Rani Corley MD LAB URINE ORDERABLES Final Re sult Performing Organization Address [facility] Co de Phone Number [facility] [place] [address] * US Kidney Complete (05/03/2024 4:05 AM SEARCH MARKETING ANALYST) Anatomical Region Laterality Modality Kidney N/A Ultrasound 05/03/2024 4:11 AM SEARCH MARKETING ANALYST Impressions 05/03/2024 8:12 AM SEARCH MARKETING ANALYST No sonographic evidence of hydronephrosis within the limitations as above. Small, echogenic kidneys suggestive of chronic renal parenchymal disease. Dictated by: Beck Massey MD The radiology attending physician has personally reviewed this study, and had reviewed and/or edited this written report and agrees with it. Electronically signed by: Andrei Altamirano M.D. Narrative 05/03/2024 8:12 AM SEARCH MARKETING ANALYST EXAMINATION: PORTABLE COMPLETE RENAL SONOGRAM HISTORY: 59-year-old [...] it. Electronically signed by: Andrei Altamirano M.D. Jayesh Hutchins MD IMG US PROCEDURES Final Resu lt * XR Chest 1 View (05/03/2024 3:47 AM SEARCH MARKETING ANALYST) Anatomical Region Laterality Modality Body, Chest N/A Digital Radiogra phy 05/03/2024 9:53 AM SEARCH MARKETING ANALYST Impressions 05/03/2024 10:07 AM SEARCH MARKETING ANALYST Interval placement of a right internal jugular central venous line terminates in the superior vena cava. No consolidation, pleural effusion or pneumothorax. Normal cardiomediastinal silhouette. Dictated by: Cami Dean MD The radiology attending physician has personally reviewed this study, and had reviewed and/or edited this written report and agrees with it. Electronically signed by: Binta Nails M.D. Narrative 05/03/2024 10:07 AM SEARCH MARKETING ANALYST EXAMINATION: XR CHEST 1 VIEW HISTORY: trialysis [...] it. Electronically signed by: Binta Nails M.D. Jayesh Hutchins MD IMG XR PROCEDURES Final Resu lt * (ABNORMAL) Potassium, whole blood (05/03/2024 3:22 AM SEARCH MARKETING ANALYST) Potassium, bld 6.6(C) 3.3 - 4.9 mmol/L Comment:Reviewed Blood 05/03/2024 3:22 AM SEARCH MARKETING ANALYST 05/03/2024 3:32 AM SEARCH MARKETING ANALYST us Rani Corley MD LAB BLOOD ORDERABLES Final Re sult [facility] [place] [address] * (ABNORMAL) Differential, auto (05/03/2024 3:22 AM SEARCH MARKETING ANALYST) Neutrophil abs 11.0(H) 1.5 - 6.5 K/cumm Imm gran abs 0.8(H) 0.0 - 0.1 K/cumm [facility] Lymphocyte abs 2.0 0.8 - 3.3 K/cumm [facility] Monocyte abs 1.1(H) 0.2 - 0.8 K/cumm [facility] Eosinophil abs 0.0 0.0 - 0.5 K/cumm [facility] Basophil abs 0.0 0.0 - 0.1 K/cumm [facility] Neutrophil pct 73.8 % [facility] Comment: Interpretive Data Percent cell count reference ranges are not reported, since discordance with absolute values may lead to misinterpretation of CBC data. Current Interpretive Data was last revised on 2017. Imm gran pct 5.3 % [facility] Comment: Interpretive Data Percent cell count reference ranges are not reported, since discordance with absolute values may lead to misinterpretation of CBC data. Current Interpretive Data was last revised on 2017. Lymphocyte pct 13.4 % [facility] Comment: Interpretive Data Percent cell count reference ranges are not reported, since discordance with absolute values may lead to misinterpretation of CBC data. Current Interpretive Data was last revised on 2017. Monocyte pct 7.3 % [facility] Comment: Interpretive Data Percent cell count reference ranges are not reported, since discordance with absolute values may lead to misinterpretation of CBC data. Current Interpretive Data was last revised on 2017. Eosinophil pct 0.1 % [facility] Comment: Interpretive Data Percent cell count reference ranges are not reported, since discordance with absolute values may lead to misinterpretation of CBC data. Current Interpretive Data was last revised on 2017. Basophil pct 0.1 % [facility] Comment: Interpretive Data Percent cell count reference ranges are not reported, since discordance with absolute values may lead to misinterpretation of CBC data. Current Interpretive Data was last revised on 2017. Blood 05/03/2024 3:22 AM SEARCH MARKETING ANALYST 05/03/2024 3:46 AM SEARCH MARKETING ANALYST us Rani Corley MD LAB BLOOD ORDERABLES Final Re sult Performing Organization Address City/[facility]/ZIP Co de Phone Number [facility] Department [place] [address] * Critical Result Callback Chemistry (05/03/2024 3:22 AM SEARCH MARKETING ANALYST) Date Notified [id number] Time Notified 423 MINERVA ANDREWS TestName Potassium Plas MINERVA ANDREWS Called/Read Back Kelley ANDREWS Credentials RN [facility] Called By S MINERVA [facility] Blood 05/03/2024 3:22 AM SEARCH MARKETING ANALYST 05/03/2024 3:46 AM SEARCH MARKETING ANALYST us Jed Saenz MD LAB BLOOD ORDERABLES Final Res ult [facility] Department [place] [address] * Critical Result Callback Chemistry (05/03/2024 3:22 AM SEARCH MARKETING ANALYST) Date Notified 20240503 Time Notified 357 MINERVA ANDREWS TestName Potassium WB MINERVA ANDREWS Called/Read Back Jolynn ANDREWS Credentials RN MINERVA ANDREWS Called By S MINERVA ANDREWS Blood 05/03/2024 3:22 AM SEARCH MARKETING ANALYST 05/03/2024 3:32 AM SEARCH MARKETING ANALYST Rani Corley MD LAB BLOOD ORDERABLES Final Re sult [facility] Department [place] [address] * (ABNORMAL) CBC with auto differential (05/03/2024 3:22 AM SEARCH MARKETING ANALYST) [facility] WBC 14.9(H) 3.8 - 9.9 K/cumm Hgb 6.1(C) 11.9 - 15.5 g/dL [facility] Comment:latonia biggs rn. Critical result called to and read back by LATONIA BIGGS RN on 05 03 2024 at 0359 to Lyly Yanez. Hct 19.3(L) 35.6 - 45.5 % [facility] Plt 280 150 - 400 K/cumm [facility] MPV 9.5 9.1 - 12.3 fL [facility] RBC 2.04(L) 3.90 - 5.20 M/cumm [facility] MCV 94.6 81.3 - 96.4 fL [facility] MCH 29.9 27.1 - 33.3 pg [facility] MCHC 31.6(L) 32.3 - 35.7 g/dL [facility] RDW CV 13.1 11.1 - 14.9 % [facility] RDW SD 44.9 35.7 - 48.1 fL [facility] NRBC abs 0.06(H) 0.00 - 0.01 K/cumm [facility] Blood 05/03/2024 3:22 AM SEARCH MARKETING ANALYST 05/03/2024 3:46 AM SEARCH MARKETING ANALYST Rani Corley MD LAB BLOOD ORDERABLES Final Re sult [facility] Department [place] [address] * Lactate, whole blood (05/03/2024 3:22 AM SEARCH MARKETING ANALYST) Lactate, bld 1.0 0.7 - 2.0 mmol/L Blood 05/03/2024 3:22 AM SEARCH MARKETING ANALYST 05/03/2024 3:32 AM SEARCH MARKETING ANALYST us Rani Corley MD LAB BLOOD ORDERABLES Final Re sult [facility] [place] [address] * Type and screen (05/03/2024 3:22 AM SEARCH MARKETING ANALYST) Zackary, indirect Negative ABO Rh O Positive [facility] Blood 05/03/2024 3:22 AM SEARCH MARKETING ANALYST 05/03/2024 3:54 AM SEARCH MARKETING ANALYST Narrative [facility] - 05/03/2024 5:45 AM SEARCH MARKETING ANALYST Has the patient had Daratumumab or Isatuximab in the past 6 months?->Unknown us Rani Corley MD LAB BLOOD BANK TEST ORDERABLE S Final Result Performing Organization Address [facility]/ZIP Co de Phone Number [facility] [place] [address] * (ABNORMAL) Potassium (05/03/2024 3:22 AM SEARCH MARKETING ANALYST) Potassium, pl 6.5(C) 3.3 - 4.9 mmol/L Blood 05/03/2024 3:22 AM SEARCH MARKETING ANALYST 05/03/2024 3:33 AM SEARCH MARKETING ANALYST us Rani Corley MD LAB BLOOD ORDERABLES Final Re sult [facility] [place] [place] [address] * Haptoglobin (05/03/2024 3:22 AM SEARCH MARKETING ANALYST) Haptoglobin 154.0 30.0 - 200.0 mg/dL Blood 05/03/2024 3:22 AM SEARCH MARKETING ANALYST 05/03/2024 3:33 AM SEARCH MARKETING ANALYST us Rani Corley MD LAB BLOOD ORDERABLES Final Re sult Performing Organization Address [facility] de Phone Number [facility] [place] [address] * (ABNORMAL) Blood gas, venous (05/03/2024 3:22 AM SEARCH MARKETING ANALYST) pH, Venous 7.21(L) 7.32 - 7.43 PCO2, Venous 34(L) 40 - 50 mmHg [facility] PO2, Venous 36 mmHg [facility] Comment: Interpretive Data No Reference Range Established Current Interpretive Data was last revised on 2017. HCO3 Venous, Calculated 14(L) 20 - 30 mmol/L [facility] BE, venous -13 mmol/L [facility] Comment: Interpretive Data No Reference Range Established Current Interpretive Data was last revised on 2017. Blood 05/03/2024 3:22 AM SEARCH MARKETING ANALYST 05/03/2024 3:32 AM SEARCH MARKETING ANALYST Rani Corley MD LAB BLOOD ORDERABLES Final Re sult Performing Organization Address [facility] de Phone Number [facility] [place] [address] * (ABNORMAL) POC Blood Gas and Chemistries, Arterial - (05/03/2024 2:45 AM SEARCH MARKETING ANALYST) Hct, POC 29.0(L) 36.3 - 45.3 % Total Hb, POC 9.5(L) 11.9 - 15.5 g/dL [facility] Blood 05/03/2024 2:45 AM SEARCH MARKETING ANALYST 05/03/2024 2:45 AM SEARCH MARKETING ANALYST us Rani Corley MD LAB POCT ORDERABLES - DEVICE Final Result Performing Organization Address [facility] de Phone Number MINERVA ANDREWS Perla [facility] [place] [address] * Troponin I high-sensitivity 2-hour (05/03/2024 2:36 AM SEARCH MARKETING ANALYST) Pathologist [facility] Trop I hs 17 <=17 ng/L Comment: Interpretive Data For further hscTnI resources including the diagnostic algorithm and an aid in interpretation, copy and paste this link: [email or web address].testcatalog.org/show/[email or web address] Current Interpretive Data last revised 2019. Trop I hs delta See Comment ng/L [facility] Comment:Inappropriate collec tion time to report a delta. Trop I hs pct delta See Comment % [facility] Comment:Inappropriate collec tion time to report a delta. Trop I hs interp See Comment [facility] Comment:Inappropriate collec tion time to report a delta. Blood 05/03/2024 2:36 AM SEARCH MARKETING ANALYST 05/03/2024 3:12 AM SEARCH MARKETING ANALYST us Nikki Orlando NP LAB BLOOD ORDERABLES Final Result Performing Organization Address [facility] de Phone Number MINERVA [facility] Department [place] [address] * HIV 1/2 Antibody plus p24 Antigen Blood (05/03/2024 2:36 AM SEARCH MARKETING ANALYST) [facility] HIV 1/2 ab + p24 ag Nonreactive Nonreactive Comment:Nonreactive for HIV- 1 antigen and HIV-1/HIV-2 antibodies. No laboratory evidence of HIV infection. If acute HIV infection is suspected, consider testing for HIV-1 RNA. Current interpretive data was last revised on 21. Blood 05/03/2024 2:36 AM SEARCH MARKETING ANALYST 05/03/2024 3:12 AM SEARCH MARKETING ANALYST us Rani Corley MD LAB MICROBIOLOGY - GENERAL OR DERABLES Final Result Performing Organization Address [facility]/ZIP Co de Phone Number [facility] [place] [place] [address] * Hepatitis C antibody Blood (05/03/2024 2:36 AM SEARCH MARKETING ANALYST) Hep C Ab Nonreactive Nonreactive Comment:Antibodies to HCV no t detected. Does NOT exclude the possibility of recent exposure to HCV. Current interpretive data was last revised on 21 Blood 05/03/2024 2:36 AM SEARCH MARKETING ANALYST 05/03/2024 3:12 AM SEARCH MARKETING ANALYST us Rani Corley MD LAB MICROBIOLOGY - GENERAL OR DERABLES Final Result Performing Organization Address [facility] [place] [address] * Hepatitis B surface antibody (immune status) Blood (05/03/2024 2:36 AM SEARCH MARKETING ANALYST) Pathologist [facility] HBsAb (immune status) Nonreactive Comment:This result is consi stent with a lack of immunity to Hepatitis B Virus when used in the setting of routine screening. Current interpretative data was last revised on 21 Blood 05/03/2024 2:36 AM SEARCH MARKETING ANALYST 05/03/2024 3:12 AM SEARCH MARKETING ANALYST us Rani Corley MD LAB MICROBIOLOGY - GENERAL OR DERABLES Final Result Performing Organization Address [facility] de Phone Number MINERVA [facility] Department [place] [address] * Hepatitis B Surface Antigen Blood (05/03/2024 2:36 AM SEARCH MARKETING ANALYST) HepBsAg Nonreactive Nonreactive Blood 05/03/2024 2:36 AM SEARCH MARKETING ANALYST 05/03/2024 3:12 AM SEARCH MARKETING ANALYST us Rani Corley MD LAB MICROBIOLOGY - GENERAL OR DERABLES Final Result Performing Organization Address [facility] [facility] Co de Phone Number [facility] [place] [address] * Infection Prevention MRSA Only (Staphylococcus aureus) Culture Nasal (05/03/2024 2:36 AM SEARCH MARKETING ANALYST) Report Final Report: Negative Nasal 05/03/2024 2:36 AM SEARCH MARKETING ANALYST 05/03/2024 4:11 AM SEARCH MARKETING ANALYST Narrative [facility] - 05/04/2024 6:18 AM SEARCH MARKETING ANALYST Testing performed by [facility] ([phone]). us Rani Corley MD LAB MICROBIOLOGY - GENERAL OR DERABLES Final Result Performing Organization Address [facility] [place] [address] * (ABNORMAL) PTH (05/03/2024 2:36 AM SEARCH MARKETING ANALYST) PTH 576(H) 15 - 65 pg/mL Blood 05/03/2024 2:36 AM SEARCH MARKETING ANALYST 05/03/2024 2:59 AM SEARCH MARKETING ANALYST us Rani Corley MD LAB BLOOD ORDERABLES Final Re sult Performing Organization Address [facility] Co de Phone Number [facility] [place] [address] * (ABNORMAL) Hemoglobin A1c (05/03/2024 2:36 AM SEARCH MARKETING ANALYST) Hgb A1C 6.2(H) 4.0 - 5.6 % Estimated Average Glucose 131 mg/dL [facility] Comment: The ADA recommends reporting an estimated Average Glucose (eAG) with all Hemoglobin A1c results using the equation derived from a study of 507 normal and diabetic adults. Minority populations were underrepresented and children were not included. (Diabetes Care 2020; 43(S1): S66-S76). The eAG is not equivalent to a fasting glucose. Blood 05/03/2024 2:36 AM SEARCH MARKETING ANALYST 05/03/2024 2:59 AM SEARCH MARKETING ANALYST Rani Corley MD LAB BLOOD ORDERABLES Final Re sult Performing Organization Address City/[facility]/ZIP Co de Phone Number [facility] [place] [employer] [place] [address] * (ABNORMAL) eGFR (05/03/2024 2:33 AM SEARCH MARKETING ANALYST) eGFR 3(L) >=60 mL/min/1. 73 m2 Comment: [...] last reviewed 2021. Blood 05/03/2024 2:33 AM SEARCH MARKETING ANALYST 05/03/2024 3:19 AM SEARCH MARKETING ANALYST Rani Corley MD LAB BLOOD ORDERABLES Final Re sult Performing Organization Address City/[facility]/ZIP Co de Phone Number [facility] [place] [place] [address] * Critical Result Callback Chemistry (05/03/2024 2:33 AM SEARCH MARKETING ANALYST) Date Notified [id number] Time Notified 407 [facility] TestName Anion Gap, Potassium Plas [facility] Called/Read Back Jolynn Reeves [facility] Credentials RN [facility] Called By MILES [facility] Blood 05/03/2024 2:33 AM SEARCH MARKETING ANALYST 05/03/2024 3:19 AM SEARCH MARKETING ANALYST us Rani Corley MD LAB BLOOD ORDERABLES Final Re sult [facility] [place] [address] * (ABNORMAL) Pro B-type natriuretic peptide (05/03/2024 2:33 AM SEARCH MARKETING ANALYST) NT-proBNP 3,761(H) <=300 pg/mL Comment: Interpretive Comments: [...] et.al. Eur Heart J. 2006:27:330-337. 2. Trista RW, Saran AM. J. AM Dai Cardiol: Cardiovasc Imag. 2009;2: 216- 225. Interpretive Data Last Revised Date: 2017. Blood 05/03/2024 2:33 AM SEARCH MARKETING ANALYST 05/03/2024 3:19 AM SEARCH MARKETING ANALYST us Rani Corley MD LAB BLOOD ORDERABLES Final Re sult Performing Organization Address [facility] Co de Phone Number [facility] [place] [place] [address] * Calcium, ionized (05/03/2024 2:33 AM SEARCH MARKETING ANALYST) Calcium, Ionized 5.00 4.50 - 5.10 mg/dL Blood 05/03/2024 2:3 3 AM SEARCH MARKETING ANALYST 05/03/2024 3:15 AM SEARCH MARKETING ANALYST us Rani Corley MD LAB BLOOD ORDERABLES Final Re sult Performing Organization Address [facility] de Phone Number [facility] [place] [address] * (ABNORMAL) Vitamin D 25 hydroxy (05/03/2024 2:33 AM SEARCH MARKETING ANALYST) Vitamin D 25-OH 6(L) 30 - 80 ng/mL Blood 05/03/2024 2:33 AM SEARCH MARKETING ANALYST 05/03/2024 3:19 AM SEARCH MARKETING ANALYST us Rani Corley MD LAB BLOOD ORDERABLES Final Re sult Performing Organization Address [facility] de Phone Number [facility] [place] [address] * (ABNORMAL) Phosphorus (05/03/2024 2:33 AM SEARCH MARKETING ANALYST) Phosphorus, pl 13.5(H) 2.3 - 4.5 mg/dL Blood 05/03/2024 2:33 AM SEARCH MARKETING ANALYST 05/03/2024 3:19 AM SEARCH MARKETING ANALYST us Rani Corley MD LAB BLOOD ORDERABLES Final Re sult Performing Organization Address [facility] Co de Phone Number [facility] [place] [address] * (ABNORMAL) Magnesium (05/03/2024 2:33 AM SEARCH MARKETING ANALYST) Magnesium 2.9(H) 1.4 - 2.5 mg/dL Blood 05/03/2024 2:33 AM SEARCH MARKETING ANALYST 05/03/2024 3:19 AM SEARCH MARKETING ANALYST us Rani Corley MD LAB BLOOD ORDERABLES Final Re sult Performing Organization Address [facility] [place] [address] * Cholesterol, LDL, direct (05/03/2024 2:33 AM SEARCH MARKETING ANALYST) LDL Cholesterol, Direct 74 <=129 mg/dL Comment: [...] revised on 2017. Blood 05/03/2024 2:33 AM SEARCH MARKETING ANALYST 05/03/2024 3:19 AM SEARCH MARKETING ANALYST us Rani Corley MD LAB BLOOD ORDERABLES Final Re sult Performing Organization Address [facility] [place] [address] * Folate (05/03/2024 2:33 AM SEARCH MARKETING ANALYST) Pathologist [facility] Folic acid 7.7 >=5.0 ng/mL Blood 05/03/2024 2:33 AM SEARCH MARKETING ANALYST 05/03/2024 3:19 AM SEARCH MARKETING ANALYST us Rani Corley MD LAB BLOOD ORDERABLES Final Re sult Performing Organization Address [facility] Co de Phone Number [facility] Department [place] [address] * Vitamin B12 (05/03/2024 2:33 AM SEARCH MARKETING ANALYST) [facility] Vitamin B12 703 230 - 1,250 pg/mL Blood 05/03/2024 2:33 AM SEARCH MARKETING ANALYST 05/03/2024 3:19 AM SEARCH MARKETING ANALYST us Rani Corley MD LAB BLOOD ORDERABLES Final Re sult Performing Organization Address [facility] de Phone Number [facility] [place] [address] * Creatine kinase (CK), total (05/03/2024 2:33 AM SEARCH MARKETING ANALYST) [facility] CK 132 30 - 200 Units/L Blood 05/03/2024 2:33 AM SEARCH MARKETING ANALYST 05/03/2024 3:19 AM SEARCH MARKETING ANALYST us Rani Corley MD LAB BLOOD ORDERABLES Final Re sult Performing Organization Address [facility] [place] [address] * (ABNORMAL) Comprehensive metabolic panel (05/03/2024 2:33 AM SEARCH MARKETING ANALYST) [facility] Sodium 133(L) 135 - 145 mmol/L Potassium, pl 7.0(C) 3.3 - 4.9 mmol/L [facility] Chloride 91(L) 97 - 110 mmol/L [facility] CO2 14(L) 22 - 32 mmol/L [facility] Anion gap 28(C) 2 - 15 mmol/L [facility] BUN 77(H) 6 - 25 mg/dL [facility] Creatinine 12.32(H) 0.60 - 1.10 mg/dL [facility] Glucose 101 70 - 199 mg/dL [facility] Comment: Interpretive Data Fasting glucose >/= 126 [...] 2022. Calcium 9.3 8.5 - 10.3 mg/dL [facility] Bilirubin, total <0.2 0.1 - 1.2 mg/dL [facility] Protein, pl 5.1(L) 6.5 - 8.5 g/dL [facility] Albumin 2.8(L) 3.5 - 5.0 g/dL [facility] Alk phos 95 40 - 130 Units/L [facility] ALT 20 7 - 45 Units/L [facility] AST 19 10 - 45 Units/L [facility] Blood 05/03/2024 2:33 AM SEARCH MARKETING ANALYST 05/03/2024 3:19 AM SEARCH MARKETING ANALYST us Rani Corley MD LAB BLOOD ORDERABLES Final Re sult [facility] [place] [address] * POCT glucose (05/03/2024 2:30 AM SEARCH MARKETING ANALYST) [facility] Glucose, POC 148 70 - 199 mg/dL Blood 05/03/2024 2:30 AM SEARCH MARKETING ANALYST 05/03/2024 2:30 AM SEARCH MARKETING ANALYST us Rani Corley MD LAB POCT ORDERABLES - DEVICE Final Result [facility] [place] [address] * ECG 12 lead (05/03/2024 2:27 AM SEARCH MARKETING ANALYST) Ventricular Rate EKG/Min 88 BPM [facility] Atrial Rate 88 BPM [facility] [place]-Interval (MSEC) 182 ms [facility] QRS-Interval (MSEC) 68 ms [facility] QT-Interval (MSEC) 344 ms [facility] QTc 416 ms [facility] P [place] 58 degrees [facility] R [place] 74 degrees [facility] T [place] 61 degrees [facility] Diagnosis Normal sinus rhythm Nonspecific ST abnormality Abnormal ECG No previous ECGs available Confirmed by HERNANDEZ ARNOLD M.D ([id number]) on 05/03/2024 11:18:58 AM [facility] 05/03/2024 2:27 AM SEARCH MARKETING ANALYST 05/03/2024 11:18 AM SEARCH MARKETING ANALYST us Rani Corley MD ECG ORDERABLES Final Result Performing Organization Address City/[facility]/ZIP Co de Phone Number [facility] * Prepare RBC: 2 Units (05/03/2024 2:17 AM SEARCH MARKETING ANALYST) Product code [id number] Unit Number [id number] [facility] Product Blood Type OPOS [facility] Dispense Status RETURNED [facility] Product code [id number] [facility] Unit Number [id number] [facility] Product Blood Type OPOS [facility] Dispense Status PRESUMED TRANSFUSED [facility] Blood 05/03/2024 2:17 AM SEARCH MARKETING ANALYST 05/03/2024 2:16 AM SEARCH MARKETING ANALYST Narrative [facility] - 05/06/2024 12:05 AM SEARCH MARKETING ANALYST Are special requirements needed? (All products are leukoreduced and CMV- safe)- >No Date required:-[id number] LRRBC # of [id number] Reasons:-Hgb <7 g/dL} Rani Corley MD BLOOD BANK PRODUCT ORDERABLES Final Result Performing Organization Address [facility] Co de Phone Number [facility] [place] [address] * POCT glucose (05/03/2024 1:47 AM SEARCH MARKETING ANALYST) Glucose, POC 186 70 - 199 mg/dL Blood 05/03/2024 1:47 AM SEARCH MARKETING ANALYST 05/03/2024 1:47 AM SEARCH MARKETING ANALYST Rani Corley MD LAB POCT ORDERABLES - DEVICE Final Result Performing Organization Address [facility] de Phone Number [facility] [place] [address] * ECG 12-LEAD (05/03/2024 1:42 AM SEARCH MARKETING ANALYST) Narrative [facility] - 05/03/2024 1:42 AM SEARCH MARKETING ANALYST Jed Saenz MD 05/03/2024 1:43 AM ECG [...] Jed Saenz MD ECG ORDERABLES Final Result [facility] * Troponin I high-sensitivity 4-hour (05/03/2024 1:38 AM SEARCH MARKETING ANALYST) Trop I hs 11 <=17 ng/L Comment: Interpretive Data For further hscTnI resources including the diagnostic algorithm and an aid in interpretation, copy and paste this link: [email or web address] Current Interpretive Data last revised 2019. Trop I hs delta -1 ng/L [facility] Trop I hs interp Insignificant [facility] Blood 05/03/2024 1:38 AM SEARCH MARKETING ANALYST 05/03/2024 2:04 AM SEARCH MARKETING ANALYST us Nikki Orlando NP LAB BLOOD ORDERABLES Final Result [facility] [place] [address] * Critical Result Callback Chemistry (05/03/2024 1:38 AM SEARCH MARKETING ANALYST) Date Notified 20240503 Time Notified 234 [facility] TestName Potassium Plas [facility] Called/Read Back Jolynn [facility] Credentials RN [facility] Called By MILES [facility] Blood 05/03/2024 1:38 AM SEARCH MARKETING ANALYST 05/03/2024 2:04 AM SEARCH MARKETING ANALYST us Jed Saenz MD LAB BLOOD ORDERABLES Final Res ult Performing Organization Address City/[facility]/ZIP Co de Phone Number [facility] [place] [address] * (ABNORMAL) Potassium (05/03/2024 1:38 AM SEARCH MARKETING ANALYST) Potassium, pl 7.2(C) 3.3 - 4.9 mmol/L Blood 05/03/2024 1:38 AM SEARCH MARKETING ANALYST 05/03/2024 2:04 AM SEARCH MARKETING ANALYST us Rani Corley MD LAB BLOOD ORDERABLES Final Re sult Performing Organization Address [facility] Co de Phone Number [facility] [place] [address] * Critical Result Callback Chemistry (05/03/2024 12:39 AM SEARCH MARKETING ANALYST) Date Notified 20240503 Time Notified 121 [facility] TestName Potassium Plas [facility] Called/Read Back Jed ANDREWS Credentials MD [facility] ANDRE[facility] Called By MILES ANDREWS Blood 05/03/2024 12:3 9 AM SEARCH MARKETING ANALYST 05/03/2024 12:50 AM SEARCH MARKETING ANALYST us Nikki Orlando NP LAB BLOOD ORDERABLES Final Result Performing Organization Address City/[facility]/ZIP Co de Phone Number [facility] [employer] [place] [address] * aPTT (05/03/2024 12:39 AM SEARCH MARKETING ANALYST) aPTT 29 28 - 38 sec Comment: Interpretive Data Heparin therapeutic range: 66.0 - 100.0 seconds. Range based on correlation with therapeutic heparin activity range of 0.3 - 0.7 Units/mL. Current interpretive data was last revised on 2022. Blood 05/03/2024 12:3 9 AM SEARCH MARKETING ANALYST 05/03/2024 12:54 AM SEARCH MARKETING ANALYST Quyen Whitman MD LAB BLOOD ORDERABLES Fin al Result Performing Organization Address [facility] de Phone Number [facility] [employer] [place] [address] * Protime-INR (05/03/2024 12:39 AM SEARCH MARKETING ANALYST) PT 9.9 9.7 - 13.0 sec INR 0.92 0.90 - 1.20 [facility] Comment: Interpretive data Oral anticoagulant therapeutic ranges: Venous thromboembolism prophylaxis or treatment: 2.0-3.0 CARDIOLOGY Standard range: 2.0-3.0 High-intensity range: 2.5-3.5 Refer to indication-specific guidelines for appropriate target ranges for prosthetic heart valve replacement. Current interpretive data was last revised on 2019. Blood 05/03/2024 12:3 9 AM SEARCH MARKETING ANALYST 05/03/2024 12:54 AM SEARCH MARKETING ANALYST Quyen Whitman MD LAB BLOOD ORDERABLES Fin al Result Performing Organization Address [facility] de Phone Number [facility] [place] [address] * (ABNORMAL) Potassium (05/03/2024 12:39 AM SEARCH MARKETING ANALYST) Potassium, pl 6.9(C) 3.3 - 4.9 mmol/L Blood 05/03/2024 12:3 9 AM SEARCH MARKETING ANALYST 05/03/2024 12:50 AM SEARCH MARKETING ANALYST Result [facility] Nikki Orlando NP LAB BLOOD ORDERABLES Final Result Performing Organization Address [facility] de Phone Number [facility] [place] [address] * [place] INSJ NON-TUNNELED CENTRAL VENOUS CATH AGE 5 YR/> (05/03/2024 12:26 AM SEARCH MARKETING ANALYST) Narrative Jayesh Hutchins MD - 05/03/2024 12:26 AM SEARCH MARKETING ANALYST Quyen Whitman MD 05/03/2024 12:28 AM Central Line Date/Time: 05/03/2024 12:26 AM Performed by: Quyen Whitman MD Authorized by: Jayesh Hutchins MD [place] Protocol: RN Notified of Procedure: yes Informed [...] vena cava Post-procedure details: Assessment: Patent vessel Jayesh Hutchins MD IN CLINIC/BEDSIDE ORDERABLES Final Result * (ABNORMAL) POCT creatinine (05/02/2024 11:37 PM SEARCH MARKETING ANALYST) Creatinine POC 14.1(H) 0.6 - 1.1 mg/dL Blood 05/02/2024 11:3 7 PM SEARCH MARKETING ANALYST 05/02/2024 11:37 PM SEARCH MARKETING ANALYST Jayesh Hutchins MD LAB POCT ORDERABLES - DEVICE Final Result [facility] [place] [address] * (ABNORMAL) POCT glucose (05/02/2024 11:33 PM SEARCH MARKETING ANALYST) Glucose, POC 257(H) 70 - 199 mg/dL Blood 05/02/2024 11:3 3 PM SEARCH MARKETING ANALYST 05/02/2024 11:33 PM SEARCH MARKETING ANALYST Jayesh Hutchins MD LAB POCT ORDERABLES - DEVICE Final Result Performing Organization Address [facility] [place] [address] * (ABNORMAL) POCT glucose (05/02/2024 11:29 PM SEARCH MARKETING ANALYST) Glucose, POC 239(H) 70 - 199 mg/dL Blood 05/02/2024 11:2 9 PM SEARCH MARKETING ANALYST 05/02/2024 11:29 PM SEARCH MARKETING ANALYST Jayesh Hutchins MD LAB POCT ORDERABLES - DEVICE Final Result Performing Organization Address [facility] Co de Phone Number [facility] [place] [address] * XR Chest 1 Vw Portable (05/02/2024 11:25 PM SEARCH MARKETING ANALYST) Anatomical Region Laterality Modality Body, Chest N/A Computed Radiogr aphy 05/02/2024 11:5 5 PM SEARCH MARKETING ANALYST Impressions 05/04/2024 7:54 AM SEARCH MARKETING ANALYST There is no pulmonary consolidation, pleural effusion, [...] Zoraida Sullivan M.D. Narrative 05/04/2024 7:54 AM SEARCH MARKETING ANALYST EXAMINATION: XR CHEST 1 VIEW HISTORY: Shortness [...] IMG XR PROCEDURES Final Resu lt * [place] CRITICAL CARE ILL/INJURED PATIENT INIT 30-74 MIN (05/02/2024 11:11 PM SEARCH MARKETING ANALYST) Narrative Jayesh Hutchins MD - 05/02/2024 11:11 PM SEARCH MARKETING ANALYST Jayesh Hutchins MD 05/02/2024 11:11 PM Critical Care Performed by: Jayehs Hutchins MD Authorized by: Jayesh Hutchins MD [...] critical care medicine services to this patient. us Jayesh Hutchins MD IN CLINIC/BEDSIDE ORDERABLES Final Result * (ABNORMAL) Potassium, whole blood (05/02/2024 10:38 PM SEARCH MARKETING ANALYST) Potassium, bld 7.2(C) 3.3 - 4.9 mmol/L Blood 05/02/2024 10:3 8 PM SEARCH MARKETING ANALYST 05/02/2024 10:43 PM SEARCH MARKETING ANALYST us Jayesh Hutchins MD LAB BLOOD ORDERABLES Final R esult [facility] [place] [place] [address] * Check Sample (05/02/2024 10:38 PM SEARCH MARKETING ANALYST) ABO Rh O Positive [facility] HCLL OTHER 05/02/2024 10:3 8 PM SEARCH MARKETING ANALYST 05/02/2024 10:54 PM SEARCH MARKETING ANALYST Katja Teague MD PhD LAB BLOOD ORDERA BLES Final Result [facility] [place] [address] [facility] * Critical Result Callback Chemistry (05/02/2024 10:38 PM SEARCH MARKETING ANALYST) Date Notified [id number] Time Notified 2302 [facility] TestName Potassium WB [facility] Called/Read Back Quyen ANDREWS Credentials MD [facility] Called By hyacinth MOORE Blood 05/02/2024 10:3 8 PM SEARCH MARKETING ANALYST 05/02/2024 10:43 PM SEARCH MARKETING ANALYST Jayesh Hutchins MD LAB BLOOD ORDERABLES Final R esult Performing Organization Address City/[facility]/ZIP Co de Phone Number [facility] [place] [address] * (ABNORMAL) Potassium, whole blood (05/02/2024 10:23 PM SEARCH MARKETING ANALYST) Pathologist [facility] Potassium, bld 7.2(C) 3.3 - 4.9 mmol/L Blood 05/02/2024 10:2 3 PM SEARCH MARKETING ANALYST 05/02/2024 10:43 PM SEARCH MARKETING ANALYST us Quyen Whitman MD LAB BLOOD ORDERABLES Fin al Result Performing Organization Address [facility] de Phone Number [facility] [place] [address] * Critical Result Callback Chemistry (05/02/2024 10:23 PM SEARCH MARKETING ANALYST) Pathologist [facility] Date Notified [id number] Time Notified 2302 [facility] TestName Potassium WB [facility] Called/Read Back Quyen ANDREWS Credentials MD [facility] Called By hyacinth MOORE Blood 05/02/2024 10:2 3 PM SEARCH MARKETING ANALYST 05/02/2024 10:43 PM SEARCH MARKETING ANALYST Quyen Whitman MD LAB BLOOD ORDERABLES Fin al Result Performing Organization Address [facility] Co de Phone Number [facility] [place] [address] * POCT glucose (05/02/2024 9:49 PM SEARCH MARKETING ANALYST) Glucose, POC 158 70 - 199 mg/dL Blood 05/02/2024 9:49 PM SEARCH MARKETING ANALYST 05/02/2024 9:49 PM SEARCH MARKETING ANALYST Jayesh Hutchins MD LAB POCT ORDERABLES - DEVICE Final Result [facility] [place] [address] * Blood culture Blood Antecubital, right (05/02/2024 9:46 PM SEARCH MARKETING ANALYST) Report Final Report: No growth Blood (Antecubital, right) 05/02/2024 9:46 PM SEARCH MARKETING ANALYST 05/02/2024 9:58 PM SEARCH MARKETING ANALYST Narrative [facility] - 05/07/2024 3:11 PM SEARCH MARKETING ANALYST From a different site than #1. Draw [...] performance characteristics have been verified by the [facility]. For questions about this culture, contact the Microbiology Laboratory at [phone]. Interpretive data was last revised on 24. Nikki Orlando NP LAB MICROBIOLOGY - G ENERAL ORDERABLES Final Result Performing Organization Address [facility] Co de Phone Number [facility] Perla [facility] [place] [address] * Blood culture Blood Antecubital, left (05/02/2024 9:46 PM SEARCH MARKETING ANALYST) Report Final Report: No growth Blood (Antecubital, left) 05/02/2024 9:46 PM SEARCH MARKETING ANALYST 05/02/2024 9:57 PM SEARCH MARKETING ANALYST Narrative [facility] - 05/07/2024 3:11 PM SEARCH MARKETING ANALYST Draw Blood cultures before administration of Antibiotics [...] performance characteristics have been verified by the [facility]. For questions about this culture, contact the Microbiology Laboratory at [phone]. Interpretive data was last revised on 24. Nikki Orlando NP LAB MICROBIOLOGY - G ENERAL ORDERABLES Final Result Performing Organization Address [facility] Co de Phone Number [facility] Perla [facility] [place] [address] * (ABNORMAL) ECG 12-LEAD (05/02/2024 9:18 PM SEARCH MARKETING ANALYST) Narrative [facility] [place] - 05/02/2024 9:18 PM SEARCH MARKETING ANALYST Yadiel Nash MD 05/02/2024 9:19 PM ECG [...] ECG: Unavailable Interpretation: Interpretation: abnormal Nikki Orlando MOLDER FLOOR ECG ORDERABLES Corine l Result Performing Organization Address City/[facility]/ZIP Co de Phone Number [facility] * Troponin I high-sensitivity series (baseline, 2hr, 4hr, 6hr) (05/02/2024 9:15 PM SEARCH MARKETING ANALYST) Trop I hs 12 <=17 ng/L Comment: Interpretive Data For further hscTnI resources including the diagnostic algorithm and an aid in interpretation, copy and paste this link: https://bjhlab.testcatalog.org/show/hsTrop-1 Current Interpretive Data last revised 2019. Blood 05/02/2024 9:15 PM SEARCH MARKETING ANALYST 05/02/2024 9:26 PM SEARCH MARKETING ANALYST Nikki Orlando MOLDER FLOOR LAB BLOOD ORDERABLES Final Result [facility] Department [place] [address] * Critical Result Callback Chemistry (05/02/2024 9:15 PM SEARCH MARKETING ANALYST) Date Notified [id number] Time Notified 2203 [facility] TestName Potassium Ciaran MOORE Called/Read Back Quyen ANDREWS Credentials MD [facility] Called By CANDIDA ANDREWS Blood 05/02/2024 9:15 PM SEARCH MARKETING ANALYST 05/02/2024 9:26 PM SEARCH MARKETING ANALYST us Nikki Orlando NP LAB BLOOD ORDERABLES Final Result Performing Organization Address City/[facility] Co de Phone Number [facility] [employer] [place] [address] * Critical Result Callback Chemistry (05/02/2024 9:15 PM SEARCH MARKETING ANALYST) Date Notified [id number] Time Notified 2132 [facility] TestName HCO3 Heriberto (Calc) [facility] Called/Read Back Quyen [facility] Credentials MD [facility] Called By MARION [facility] Blood 05/02/2024 9:15 PM SEARCH MARKETING ANALYST 05/02/2024 9:25 PM SEARCH MARKETING ANALYST us Nikki Orlando NP LAB BLOOD ORDERABLES Final Result Performing Organization Address [facility] Co de Phone Number [facility] [place] [address] * Thyroid Function [place] (05/02/2024 9:15 PM SEARCH MARKETING ANALYST) TSH 2.92 0.30 - 4.20 mcIUnit/mL Blood 05/02/2024 9:15 PM SEARCH MARKETING ANALYST 05/02/2024 9:26 PM SEARCH MARKETING ANALYST us Jayesh Hutchins MD LAB BLOOD ORDERABLES Final R esult Performing Organization Address [facility] Co de Phone Number [facility] [place] [address] * Type and screen (05/02/2024 9:15 PM SEARCH MARKETING ANALYST) ABO Rh O Positive Zackary, indirect Negative [facility] Blood 05/02/2024 9:1 5 PM SEARCH MARKETING ANALYST 05/02/2024 9:33 PM SEARCH MARKETING ANALYST Narrative [facility] - 05/02/2024 10:20 PM SEARCH MARKETING ANALYST Has the patient had Daratumumab or Isatuximab in the past 6 months?->Unknown Nikki Orlando NP LAB BLOOD BANK TEST ORDERABLES Final Result Performing Organization Address [facility] Co de Phone Number [facility] [place] [address] * (ABNORMAL) Potassium (05/02/2024 9:15 PM SEARCH MARKETING ANALYST) Pathologist [facility] Potassium, pl 8.2(C) 3.3 - 4.9 mmol/L Blood 05/02/2024 9:15 PM SEARCH MARKETING ANALYST 05/02/2024 9:26 PM SEARCH MARKETING ANALYST Nikki Orlando NP LAB BLOOD ORDERABLES Final Result Performing Organization Address [facility] Phone Number [facility] [place] [address] * (ABNORMAL) Blood gas, venous (05/02/2024 9:15 PM SEARCH MARKETING ANALYST) Pathologist [facility] pH, Venous 7.24(L) 7.32 - 7.43 PCO2, Venous 23(L) 40 - 50 mmHg [facility] PO2, Venous 44 mmHg [facility] Comment: Interpretive Data No Reference Range Established Current Interpretive Data was last revised on 2017. HCO3 Venous, Calculated 10(C) 20 - 30 mmol/L [facility] BE, venous -16 mmol/L [facility] Comment: Interpretive Data No Reference Range Established Current Interpretive Data was last revised on 2017. Blood 05/02/2024 9:15 PM SEARCH MARKETING ANALYST 05/02/2024 9:25 PM SEARCH MARKETING ANALYST Nikki Orlando NP LAB BLOOD ORDERABLES Final Result Performing Organization Address [facility] de Phone Number [facility] [place] [address] * (ABNORMAL) eGFR (05/02/2024 8:01 PM SEARCH MARKETING ANALYST) eGFR 3(L) >=60 mL/min/1. 73 m2 Comment: [...] last reviewed 2021. Blood 05/02/2024 8:01 PM SEARCH MARKETING ANALYST 05/02/2024 8:10 PM SEARCH MARKETING ANALYST Nikki Orlando NP LAB BLOOD ORDERABLES Final Result [facility] Department [place] [address] * (ABNORMAL) Differential, auto (05/02/2024 8:01 PM SEARCH MARKETING ANALYST) Neutrophil abs 13.2(H) 1.5 - 6.5 K/cumm Imm gran abs 0.8(H) 0.0 - 0.1 K/cumm [facility] Lymphocyte abs 1.3 0.8 - 3.3 K/cumm [facility] Monocyte abs 1.0(H) 0.2 - 0.8 K/cumm [facility] Eosinophil abs 0.0 0.0 - 0.5 K/cumm [facility] Basophil abs 0.0 0.0 - 0.1 K/cumm [facility] Neutrophil pct 80.8 % [facility] Comment: Interpretive Data Percent cell count reference ranges are not reported, since discordance with absolute values may lead to misinterpretation of CBC data. Current Interpretive Data was last revised on 2017. Imm gran pct 5.0 % [facility] Comment: Interpretive Data Percent cell count reference ranges are not reported, since discordance with absolute values may lead to misinterpretation of CBC data. Current Interpretive Data was last revised on 2017. Lymphocyte pct 7.8 % [facility] Comment: Interpretive Data Percent cell count reference ranges are not reported, since discordance with absolute values may lead to misinterpretation of CBC data. Current Interpretive Data was last revised on 2017. Monocyte pct 6.3 % [facility] Comment: Interpretive Data Percent cell count reference ranges are not reported, since discordance with absolute values may lead to misinterpretation of CBC data. Current Interpretive Data was last revised on 2017. Eosinophil pct 0.0 % [facility] Comment: Interpretive Data Percent cell count reference ranges are not reported, since discordance with absolute values may lead to misinterpretation of CBC data. Current Interpretive Data was last revised on 2017. Basophil pct 0.1 % [facility] Comment: Interpretive Data Percent cell count reference ranges are not reported, since discordance with absolute values may lead to misinterpretation of CBC data. Current Interpretive Data was last revised on 2017. Blood 05/02/2024 8:01 PM SEARCH MARKETING ANALYST 05/02/2024 8:09 PM SEARCH MARKETING ANALYST us Nikki Orlando MOLDER FLOOR LAB BLOOD ORDERABLES Final Result [facility] Department [place] [address] * Critical Result Callback Chemistry (05/02/2024 8:01 PM SEARCH MARKETING ANALYST) Date Notified [id number] Time Notified 2038 [facility] TestName Potassium Plas and Anion Gap [facility] Called[facility]Read Back Nikki Orlando [facility] Credentials MOLDER FLOOR [facility] Called By MARION [facility] Blood 05/02/2024 8:01 PM SEARCH MARKETING ANALYST 05/02/2024 8:10 PM SEARCH MARKETING ANALYST Nikki Orlando MOLDER FLOOR LAB BLOOD ORDERABLES Final Result [facility] [place] [address] * (ABNORMAL) Iron profile w/ IBC (05/02/2024 8:01 PM SEARCH MARKETING ANALYST) Pathologist [facility] Iron 193(H) 35 - 145 mcg/dL TIBC 237(L) 250 - 400 mcg/dL [facility] Transferrin saturation 81(H) 20 - 50 % [facility] Blood 05/02/2024 8:01 PM SEARCH MARKETING ANALYST 05/02/2024 8:10 PM SEARCH MARKETING ANALYST us Nikki Orlando MOLDER FLOOR LAB BLOOD ORDERABLES Final Result Performing Organization Address City/[facility] Co de Phone Number [facility] [place] [address] * (ABNORMAL) CBC with auto differential (05/02/2024 8:01 PM SEARCH MARKETING ANALYST) Pathologist [facility] WBC 16.3(H) 3.8 - 9.9 K/cumm Hgb 5.7(C) 11.9 - 15.5 g/dL [facility] Comment:Critical result call ed to and read back by PEDRO VALDIVIA RN on 05 02 2024 at 2021 to Caty Rincon. Hct 18.1(L) 35.6 - 45.5 % [facility] Plt 367 150 - 400 K/cumm [facility] MPV 9.4 9.1 - 12.3 fL [facility] RBC 1.93(L) 3.90 - 5.20 M/cumm [facility] MCV 93.8 81.3 - 96.4 fL [facility] MCH 29.5 27.1 - 33.3 pg [facility] MCHC 31.5(L) 32.3 - 35.7 g/dL [facility] RDW CV 13.2 11.1 - 14.9 % [facility] RDW SD 45.5 35.7 - 48.1 fL [facility] NRBC abs 0.04(H) 0.00 - 0.01 K/cumm [facility] Blood 05/02/2024 8:01 PM SEARCH MARKETING ANALYST 05/02/2024 8:09 PM SEARCH MARKETING ANALYST Nikki Orlando MOLDER FLOOR LAB BLOOD ORDERABLES Final Result Performing Organization Address City/[facility] Co de Phone Number [facility] [employer] [address] * (ABNORMAL) Magnesium (05/02/2024 8:01 PM SEARCH MARKETING ANALYST) Magnesium 2.9(H) 1.4 - 2.5 mg/dL Blood 05/02/2024 8:01 PM SEARCH MARKETING ANALYST 05/02/2024 8:10 PM SEARCH MARKETING ANALYST Nikki Orlando MOLDER FLOOR LAB BLOOD ORDERABLES Final Result Performing Organization Address [facility] Co de Phone Number [facility] [place] [employer] [address] * (ABNORMAL) Ferritin (05/02/2024 8:01 PM SEARCH MARKETING ANALYST) Ferritin 320(H) 13 - 150 ng/mL Blood 05/02/2024 8:01 PM SEARCH MARKETING ANALYST 05/02/2024 8:10 PM SEARCH MARKETING ANALYST Nikki Orlando MOLDER FLOOR LAB BLOOD ORDERABLES Final Result Performing Organization Address [facility] Co de Phone Number [facility] [place] [address] * (ABNORMAL) Comprehensive metabolic panel (05/02/2024 8:01 PM SEARCH MARKETING ANALYST) Sodium 131(L) 135 - 145 mmol/L Potassium, pl 8.2(C) 3.3 - 4.9 mmol/L [facility] Chloride 89(L) 97 - 110 mmol/L [facility] CO2 13(L) 22 - 32 mmol/L [facility] Anion gap 29(C) 2 - 15 mmol/L [facility] BUN 83(H) 6 - 25 mg/dL [facility] Creatinine 13.72(H) 0.60 - 1.10 mg/dL [facility] Glucose 115 70 - 199 mg/dL [facility] Comment: Interpretive Data Fasting glucose >/= 126 [...] 2022. Calcium 9.4 8.5 - 10.3 mg/dL [facility] Bilirubin, total <0.2 0.1 - 1.2 mg/dL [facility] Protein, pl 5.7(L) 6.5 - 8.5 g/dL [facility] Albumin 3.1(L) 3.5 - 5.0 g/dL [facility] Alk phos 110 40 - 130 Units/L [facility] ALT 20 7 - 45 Units/L [facility] AST 20 10 - 45 Units/L [facility] Blood 05/02/2024 8:01 PM SEARCH MARKETING ANALYST 05/02/2024 8:10 PM SEARCH MARKETING ANALYST us Nikki Orlando NP LAB BLOOD ORDERABLES Final Result [facility] [place] [address] from Last 3 Months Insurance [facility] CHOICE PLUS TRANSPLANT [facility] [place] [id number] [employer] Advance Directives For more information, please contact: [phone] * Full Code (Latest Code Status on File) Date Activated Date Inactivated Comments 05/03/2024 2:16 AM 05/14/2024 1:09 AM * Full Code Date Activated Date Inactivated Comments 08/12/2019 3:28 AM 08/12/2019 7:14 PM Healthcare Agents on File Name Relationship Healthcare Agent [facility] [place] Cui Spouse Health Care Agent Care Teams Environmental Sampler Relationship Specialty Start Date End Date León Varela MD [facility] [place] [address] PCP - General Family Medicine 05/02/24 Roger Morales MD [address] [place] [address] Referring Physician Nephrology 05/08/24 Disha Gutierrez MD [address] [place] [id number] Referring Physician Dermatology 06/18/24
--- OUTSIDE RECORDS SUMMARY | 2024-07-25 06:55 | XMS_ITS | Continuity of Care Document ---
Author Organization [facility] Address [address] [place] [address] [address] [place] [address] Phone Care Team Providers Care Steel Fabricating Supervisor Name Role Phone Ck Snyder PTA Unavailable Unavailable Procedures Procedure Date Employer Prevention Consultation 2023 Advance Directives Directive Yes / No Effective Date File Name No Information Encounters Encounter Description Practice Location Reason(s) For Visit Diagnoses Date Provider Providers Copied on Encounter [facility], [address], [place], [place], [id number], [place] tel:[phone] [place] No Information Claudio Stover. . Referring Provider: Access Direct. Family History Family Member Type Diagnosis Age At Onset No Information Payers Payer name Insurance type Covered green party ID Authoriza tion(s) Invoice CI 00 [...]
--- OUTSIDE RECORDS SUMMARY | 2024-07-25 06:55 | XMS_ITS ---
Author Organization [facility] Mary snyder ([facility]) Address [facility] [address] [address] Care Team Providers Care Fact Checker Name Role Phone Unavailable Unavailable Unavailable Allergies, Adverse Reactions, Alerts Allergy Name Allergy Type Status Severity Reaction(s) Onset Date Inactive Date Treating Clinician Comments Codeine Allergy Active Moderate Allergy Chest Pain 2024-04 18:47:5 5 Advair Diskus Allergy Active Moderate Allergy Rash 2024-04 18:47:1 3 Medications Ordered Medication Name Filled Medication Name Start Date Stop Date Current Medication? Ordering Clinician Indication Dosage Frequency Signature (SIG) Comments Components calcitriol 07-06 05:00: 00 Yes [id number] Number of Repeats Allowed: Frequency: Three times a week Mircera 06-14 14:45: 21 Yes [id number] Number of Repeats Allowed: Frequency: ADAMA dosing, every two weeks heparin sodium, porcine 06-12 18:55: 04 Yes [id number] Number of Repeats Allowed: Frequency: Every Dialysis TreatmentD osesOrdere d: Post CVC Instillati on 2100 Units 1:1000 Units/mLRo [facility]: Intracathe terDosesOr dered: Post CVC Instillati on 2100 Units 1:1000 Units/mLRo [facility] [place]: Intracathe ter ONS [facility] 05-28 05:00: 00 Yes [id number] Number of Repeats Allowed: Frequency: Every Dialysis Treatment Venofer 05-17 14:01: 35 Yes [id number] Number of Repeats Allowed: Frequency: One time a weekDosesO rdered: Maintenanc e Dose 100 Milligram Route: Intravenou s Trelegy Ellipta 05-15 21:47: 29 Yes Number of Repeats Allowed: Frequency: One time a day Senna-Docus ate Sodium 05-15 21:46: 57 Yes Number of Repeats Allowed: Frequency: One time a day Montelukast Sodium 05-15 21:46: 18 Yes Number of Repeats Allowed: Frequency: Once a day, at bedtime Midodrine HCl 05-15 21:45: 41 Yes Number of Repeats Allowed: Frequency: Three times a day hydrOXYzine HCl 05-15 21:45: 01 Yes Number of Repeats Allowed: Frequency: As needed Gabapentin 05-15 21:44: 01 Yes Number of Repeats Allowed: Frequency: Once a day, at bedtime Ergocalcife rol 05-15 21:43: 07 Yes Number of Repeats Allowed: Frequency: One time a week Droxidopa 05-15 21:42: 13 Yes Number of Repeats Allowed: Frequency: Three times a week Atorvastati n Calcium 05-15 21:41: 03 Yes Number of Repeats Allowed: Frequency: One time a day Oxygen 05-14 18:59: 54 Yes [id number] Number of Repeats Allowed: Frequency: As needed ondansetron hydrochlori de 05-14 18:59: 18 Yes [id number] Number of Repeats Allowed: Frequency: Every 4 hours as needed EpiPen 2-Yovanny 05-14 18:59: 09 Yes [id number] Number of Repeats Allowed: Frequency: Every 4 hours as needed diphenhydra mine hydrochlori de 05-14 18:59: 03 Yes [id number] Number of Repeats Allowed: Frequency: Every 4 hours as needed diphenhydra mine hydrochlori de 05-14 18:58: 48 Yes [id number] Number of Repeats Allowed: Frequency: Every 4 hours as needed clonidine 05-14 18:58: 38 Yes [id number] Number of Repeats Allowed: Frequency: Every 4 hours as needed acetaminoph en 05-14 18:58: 26 Yes [id number] Number of Repeats Allowed: Frequency: Every 4 hours as needed heparin sodium, porcine 05-14 18:58: 12 Yes [id number] Number of Repeats Allowed: Frequency: Every Dialysis TreatmentD osesOrdere d: Loading Dose 1000 Units 1:1000 Units/mLRo [facility] [place]: Intravenou s heparin sodium, porcine 05-14 18:58: 12 Yes [id number] Number of Repeats Allowed: Frequency: Every Dialysis TreatmentD osesOrdere d: Hourly Dose 600 Units/Hr 1:1000 Units/mLRo [facility] [place]: Intravenou s Problems This patient has no known problems. Procedures Procedure Date / Time Performed Performing Clinician Dominique cedeño Details Central Venous Catheter (CVC) 2024-05-06 06:00:00 Access Site Chest (Right) Access Use Start Date 2024-05-15 00:00:0 0 DIALYSIS TREATMENT INFORMATION Conventional Hemodialysis Date Type Treatment Start Date Treatment End Date Pre-Treatment Vitals Post-Treatment Vitals Weight Gain BFR DFR Actual UF Dialysis Access July 24, 2024 In-Ce nter Hemod ialys is Treat ment 2024-07-24 T10:08:00. 000Z 2024-07-24 T13:13:25. 000Z BP Sitting (Pre-Dialysis) 102/55 mmHg BP Sitting (Post-D ialysis ) 93/4 9 mmHg BP Standing (Pre-Dialysis) 101/51 mmHg BP Standing (P ost-Dialysis) 83/43 mmHg Sitting Heart Rate Pre-Dialysis 80 BPM Sitting Heart Rate Post-Dialysis 72 BPM Standing Heart Rate Pre-Dialysis 91 BPM Standing Heart Rate Post-Dialysis 92 BPM Temperature Pre-Dialysis 97.7 degF Temperature Post -Dialysis 97.2 degF July 22, 2024 In-Center Hemodialysis Treatment 9490-61-96P14:07:02.000Z 1634-39-97S64:01:12.000Z BP Sitting (Pre-Dialysis) 104/58 mmHg BP Sitting (Post-Dialysis) 93/49 mmHg Concurrent Access: falseCentral Venous Catheter (CVC) Chest (Right) Arterial BP Standing (Pre-Dialysis) 104/57 mmHg Sitting Heart Rate Post-Dialysis 92 BPM Sitting Heart Rate Pre-Dialysis 82 BPM Temperatu re Post-Dialysis 98 degF Standing Heart Rate Pre-Dialysis 87 BPM Temperature Pre-Dialysis 97.5 degF July 19, 2024 In-Center Hemodialysis Treatment 5837-00-94W00:01:00.000Z 4956-01-07H11:47:37.000Z BP Sitting (Pre-Dialysis) 176/83 mmHg BP Sitting (Post-Dialysis) 118/55 mmHg Concurrent Access: falseCentral Venous Catheter (CVC) Chest (Right) Arterial BP Standing (Pre-Dialysis) 159/76 mmHg BP Standing (P ost-Dialysis) 98/45 mmHg Sitting Heart Rate Pre-Dialysis 86 BPM Sitting Heart Rate Post-Dialysis 87 BPM Standing Heart Rate Pre-Dialysis 86 BPM Standing Heart Rate Post-Dialysis 106 BPM Temperature Pre-Dialysis 98 degF Temperature Post -Dialysis 98.1 degF July 17, 2024 In-Center Hemodialysis Treatment [id number]:01:00.000Z 4233-88-00D72:48:41.000Z BP Sitting (Pre-Dialysis) 118/67 mmHg BP Sitting (Post-Dialysis) 99/50 mmHg Concurrent Access: falseCentral Venous Catheter (CVC) Chest (Right) Arterial BP Standing (Pre-Dialysis) 122/55 mmHg BP Standing (P ost-Dialysis) 106/50 mmHg Sitting Heart Rate Pre-Dialysis 86 BPM Sitting Heart Rate Post-Dialysis 91 BPM Standing Heart Rate Pre-Dialysis 86 BPM Standing Heart Rate Post-Dialysis 93 BPM Temperature Pre-Dialysis 97.6 degF Temperature Post -Dialysis 98.2 degF July 15, 2024 In-Center Hemodialysis Treatment [id number]:06:51.000Z 6724-21-88P10:35:36.000Z BP Sitting (Pre-Dialysis) 99/49 mmHg BP Sitting (Post-Dialysis) 93/50 mmHg Concurrent Access: falseCentral Venous Catheter (CVC) Chest (Right) Arterial BP Standing (Pre-Dialysis) 100/60 mmHg BP Standing (P ost-Dialysis) 98/41 mmHg Sitting Heart Rate Pre-Dialysis 74 BPM Sitting Heart Rate Post-Dialysis 83 BPM Standing Heart Rate Pre-Dialysis 84 BPM Standing Heart Rate Post-Dialysis 92 BPM Temperature Pre-Dialysis 97.5 degF Temperature Post -Dialysis 98 degF July 12, 2024 In-Center Hemodialysis Treatment [id number]:59:00.000Z 6441-31-75M04:30:18.000Z BP Sitting (Pre-Dialysis) 106/62 mmHg BP Sitting (Post-Dialysis) 106/90 mmHg Concurrent Access: falseCentral Venous Catheter (CVC) Chest (Right) Arterial BP Standing (Pre-Dialysis) 103/52 mmHg Sitti ng Heart Rate Post-Dialysis 76 BPM Sitting Heart Rate Pre-Dialysis 94 BPM Temperatu re Post-Dialysis 98.2 degF Standing Heart Rate Pre-Dialysis 104 BPM Temperature Pre-Dialysis 98 degF July 10, 2024 In-Center Hemodialysis Treatment [id number]:07:44.000Z 1478-40-60W59:46:04.000Z BP Sitting (Pre-Dialysis) 107/61 mmHg BP Sitting (Post-Dialysis) 106/91 mmHg Concurrent Access: falseCentral Venous Catheter (CVC) Chest (Right) Arterial BP Standing (Pre-Dialysis) 108/57 mmHg Sitti ng Heart Rate Post-Dialysis 77 BPM Sitting Heart Rate Pre-Dialysis 79 BPM Temperatu re Post-Dialysis 98.3 degF Standing Heart Rate Pre-Dialysis 90 BPM Temperature Pre-Dialysis 98 degF July 08, 2024 In-Center Hemodialysis Treatment 4881-50-90H99:06:00.000Z 4497-01-71O90:59:22.000Z BP Sitting (Pre-Dialysis) 113/68 mmHg BP Sitting (Post-Dialysis) 86/54 mmHg Concurrent Access: falseCentral Venous Catheter (CVC) Chest (Right) Arterial BP Standing (Pre-Dialysis) 99/57 mmHg BP Standing (P ost-Dialysis) 94/59 mmHg Sitting Heart Rate Pre-Dialysis 84 BPM Sitting H eart Rate Post-Dialysis 89 BPM Standing Heart Rate Pre-Dialysis 95 BPM Standing Heart Rate Post-Dialysis 86 BPM Temperature Pre-Dialysis 97.9 degF Temperature Post -Dialysis 98 degF July 05, 2024 In-Center Hemodialysis Treatment 9968-73-70Z88:10:30.000Z 6031-35-86S77:16:20.000Z BP Sitting (Pre-Dialysis) 98/58 mmHg BP Sitting (Post-Dialysis) 85/46 mmHg Concurrent Access: falseCentral Venous Catheter (CVC) Chest (Right) Arterial BP Standing (Pre-Dialysis) 99/51 mmHg BP Standing (P ost-Dialysis) 90/53 mmHg Sitting Heart Rate Pre-Dialysis 85 BPM Sitting H eart Rate Post-Dialysis 90 BPM Standing Heart Rate Pre-Dialysis 91 BPM Standing Heart Rate Post-Dialysis 97 BPM Temperature Pre-Dialysis 97.3 degF Temperature Post -Dialysis 98 degF July 03, 2024 In-Center Hemodialysis Treatment [id number]:01:54.000Z 5284-08-85S98:48:09.000Z BP Sitting (Pre-Dialysis) 92/56 mmHg BP Sitting (Post-Dialysis) 105/62 mmHg Concurrent Access: falseCentral Venous Catheter (CVC) Chest (Right) Arterial BP Standing (Pre-Dialysis) 91/50 mmHg Sitti ng Heart Rate Post-Dialysis 90 BPM Sitting Heart Rate Pre-Dialysis 89 BPM Temperatu re Post-Dialysis 98.4 degF Standing Heart Rate Pre-Dialysis 87 BPM Temperature Pre-Dialysis 97.8 degF July 01, 2024 In-Center Hemodialysis Treatment [id number]:58:54.000Z 3048-07-98W17:16:23.000Z BP Sitting (Pre-Dialysis) 94/57 mmHg BP Sitting (Post-Dialysis) 92/57 mmHg Concurrent Access: falseCentral Venous Catheter (CVC) Chest (Right) Arterial BP Standing (Pre-Dialysis) 95/59 mmHg BP Standing (P ost-Dialysis) 94/55 mmHg Sitting Heart Rate Pre-Dialysis 93 BPM Sitting H eart Rate Post-Dialysis 89 BPM Standing Heart Rate Pre-Dialysis 93 BPM Standing Heart Rate Post-Dialysis 95 BPM Temperature Pre-Dialysis 97.7 degF Temperature Post -Dialysis 98.4 degF June 28, 2024 In-Center Hemodialysis Treatment [id number]:57:00.000Z [id number]:57:00.000Z BP Sitting (Pre-Dialysis) 111/62 mmHg BP Sitting (Post-Dialysis) 129/64 mmHg Concurrent Access: falseCentral Venous Catheter (CVC) Chest (Right) Arterial BP Standing (Pre-Dialysis) 113/66 mmHg BP Standing (P ost-Dialysis) 105/60 mmHg Sitting Heart Rate Pre-Dialysis 94 BPM Sitting Heart Rate Post-Dialysis 94 BPM Standing Heart Rate Pre-Dialysis 100 BPM Standing Heart Rate Post-Dialysis 98 BPM Temperature Pre-Dialysis 98.1 degF Temperature Post -Dialysis 98.2 degF June 26, 2024 In-Center Hemodialysis Treatment [id number]:29:42.000Z 3107-56-61D21:29:17.000Z BP Sitting (Pre-Dialysis) 102/55 mmHg BP Sitting (Post-Dialysis) 84/51 mmHg Concurrent Access: falseCentral Venous Catheter (CVC) Chest (Right) Arterial BP Standing (Pre-Dialysis) 100/57 mmHg BP Standing (P ost-Dialysis) 97/57 mmHg Sitting Heart Rate Pre-Dialysis 96 BPM Sitting Heart Rate Post-Dialysis 93 BPM Standing Heart Rate Pre-Dialysis 101 BPM Standing Heart Rate Post-Dialysis 100 BPM Temperature Pre-Dialysis 97.9 degF Temperature Post -Dialysis 97.9 degF June 24, 2024 In-Center Hemodialysis Treatment [id number]:42:00.000Z 1952-36-84Q20:08:31.000Z BP Sitting (Pre-Dialysis) 99/55 mmHg BP Sitting (Post-Dialysis) 97/53 mmHg Concurrent Access: falseCentral Venous Catheter (CVC) Chest (Right) Arterial BP Standing (Pre-Dialysis) 91/61 mmHg BP Standing (P ost-Dialysis) 88/57 mmHg Sitting Heart Rate Pre-Dialysis 92 BPM Sitting H eart Rate Post-Dialysis 97 BPM Standing Heart Rate Pre-Dialysis 103 BPM Standing Heart Rate Post-Dialysis 104 BPM Temperature Pre-Dialysis 97.6 degF Temperature Post -Dialysis 97.7 degF June 21, 2024 In-Center Hemodialysis Treatment [id number]:26:00.000Z 7596-61-55Z99:22:23.000Z BP Sitting (Pre-Dialysis) 95/55 mmHg BP Sitting (Post-Dialysis) 98/62 mmHg Concurrent Access: falseCentral Venous Catheter (CVC) Chest (Right) Arterial BP Standing (Pre-Dialysis) 96/52 mmHg BP Standing (P ost-Dialysis) 101/53 mmHg Sitting Heart Rate Pre-Dialysis 93 BPM Sitting Heart Rate Post-Dialysis 93 BPM Standing Heart Rate Pre-Dialysis 102 BPM Standing Heart Rate Post-Dialysis 110 BPM Temperature Pre-Dialysis 98.2 degF Temperature Post -Dialysis 98 degF June 19, 2024 In-Center Hemodialysis Treatment [id number]:16:00.000Z [id number]:58:58.000Z BP Sitting (Pre-Dialysis) 113/60 mmHg BP Sitting (Post-Dialysis) 103/60 mmHg Concurrent Access: falseCentral Venous Catheter (CVC) Chest (Right) Arterial BP Standing (Pre-Dialysis) 122/64 mmHg Sitting Heart Rate Post-Dialysis 90 BPM Sitting Heart Rate Pre-Dialysis 87 BPM Temperatu re Post-Dialysis 98 degF Standing Heart Rate Pre-Dialysis 92 BPM Temperature Pre-Dialysis 97.8 degF June 17, 2024 In-Center Hemodialysis Treatment [id number]:02:00.000Z 1197-41-68W89:05:47.000Z BP Sitting (Pre-Dialysis) 102/60 mmHg BP Sitting (Post-Dialysis) 108/61 mmHg Concurrent Access: falseCentral Venous Catheter (CVC) Chest (Right) Arterial BP Standing (Pre-Dialysis) 90/54 mmHg Sitti ng Heart Rate Post-Dialysis 86 BPM Sitting Heart Rate Pre-Dialysis 90 BPM Temperatu re Post-Dialysis 97.9 degF Standing Heart Rate Pre-Dialysis 101 BPM Temperature Pre-Dialysis 97.6 degF June 14, 2024 In-Center Hemodialysis Treatment [id number]:40:56.000Z 3670-51-95H62:00:31.000Z BP Sitting (Pre-Dialysis) 104/54 mmHg BP Sitting (Post-Dialysis) 87/55 mmHg Concurrent Access: falseCentral Venous Catheter (CVC) Chest (Right) Arterial BP Standing (Pre-Dialysis) 105/61 mmHg BP Standing (P ost-Dialysis) 101/53 mmHg Sitting Heart Rate Pre-Dialysis 88 BPM Sitting Heart Rate Post-Dialysis 86 BPM Standing Heart Rate Pre-Dialysis 98 BPM Standing Heart Rate Post-Dialysis 100 BPM Temperature Pre-Dialysis 97.6 degF Temperature Post -Dialysis 98.2 degF June 12, 2024 In-Center Hemodialysis Treatment [id number]:48:56.000Z 1945-89-79S51:42:41.000Z BP Sitting (Pre-Dialysis) 94/53 mmHg BP Sitting (Post-Dialysis) 80/46 mmHg Concurrent Access: falseCentral Venous Catheter (CVC) Chest (Right) Arterial BP Standing (Pre-Dialysis) 113/58 mmHg BP Standing (P ost-Dialysis) 106/56 mmHg Sitting Heart Rate Pre-Dialysis 76 BPM Sitting Heart Rate Post-Dialysis 97 BPM Standing Heart Rate Pre-Dialysis 86 BPM Standing Heart Rate Post-Dialysis 97 BPM Temperature Pre-Dialysis 97.8 degF Temperature Post -Dialysis 97.9 degF June 10, 2024 In-Center Hemodialysis Treatment [id number]:00:00.000Z [id number]:17:21.000Z BP Sitting (Pre-Dialysis) 99/59 mmHg BP Sitting (Post-Dialysis) 92/51 mmHg Concurrent Access: falseCentral Venous Catheter (CVC) Chest (Right) Arterial BP Standing (Pre-Dialysis) 105/56 mmHg BP Standing (P ost-Dialysis) 121/56 mmHg Sitting Heart Rate Pre-Dialysis 87 BPM Sitting Heart Rate Post-Dialysis 85 BPM Standing Heart Rate Pre-Dialysis 91 BPM Standing Heart Rate Post-Dialysis 101 BPM Temperature Pre-Dialysis 97.2 degF Temperature Post -Dialysis 97.7 degF June 07, 2024 In-Center Hemodialysis Treatment 5134-12-28T01:54:00.000Z 3681-15-09B55:55:45.000Z BP Sitting (Pre-Dialysis) 108/57 mmHg BP Sitting (Post-Dialysis) 99/54 mmHg Concurrent Access: falseCentral Venous Catheter (CVC) Chest (Right) Arterial BP Standing (Pre-Dialysis) 102/53 mmHg BP Standing (P ost-Dialysis) 101/62 mmHg Sitting Heart Rate Pre-Dialysis 90 BPM Sitting Heart Rate Post-Dialysis 87 BPM Standing Heart Rate Pre-Dialysis 99 BPM Standing Heart Rate Post-Dialysis 105 BPM Temperature Pre-Dialysis 98.2 degF Temperature Post -Dialysis 98 degF June 05, 2024 In-Center Hemodialysis Treatment [id number]:49:37.000Z [id number]:49:37.000Z BP Sitting (Pre-Dialysis) 119/57 mmHg BP Sitting (Post-Dialysis) 89/49 mmHg Concurrent Access: falseCentral Venous Catheter (CVC) Chest (Right) Arterial BP Standing (Pre-Dialysis) 113/60 mmHg BP Standing (P ost-Dialysis) 92/51 mmHg Sitting Heart Rate Pre-Dialysis 87 BPM Sitting Heart Rate Post-Dialysis 85 BPM Standing Heart Rate Pre-Dialysis 95 BPM Standing Heart Rate Post-Dialysis 90 BPM Temperature Pre-Dialysis 98.2 degF Temperature Post -Dialysis 98.2 degF June 03, 2024 In-Center Hemodialysis Treatment 2488-04-05A03:39:00.000Z [id number]:11:29.000Z BP Sitting (Pre-Dialysis) 91/50 mmHg BP Sitting (Post-Dialysis) 89/47 mmHg Concurrent Access: falseCentral Venous Catheter (CVC) Chest (Right) Arterial BP Standing (Pre-Dialysis) 88/49 mmHg BP Standing (P ost-Dialysis) 101/73 mmHg Sitting Heart Rate Pre-Dialysis 85 BPM Sitting Heart Rate Post-Dialysis 78 BPM Standing Heart Rate Pre-Dialysis 92 BPM Standing Heart Rate Post-Dialysis 96 BPM Temperature Pre-Dialysis 97.8 degF Temperature Post -Dialysis 98 degF May 31, 2024 In-Center Hemodialysis Treatment [id number]:20:35.000Z [id number]:30:10.000Z BP Sitting (Pre-Dialysis) 106/58 mmHg BP Sitting (Post-Dialysis) 114/66 mmHg Concurrent Access: falseCentral Venous Catheter (CVC) Chest (Right) Arterial BP Standing (Pre-Dialysis) 98/61 mmHg BP Standing (P ost-Dialysis) 104/62 mmHg Sitting Heart Rate Pre-Dialysis 85 BPM Sitting Heart Rate Post-Dialysis 84 BPM Standing Heart Rate Pre-Dialysis 95 BPM Standing Heart Rate Post-Dialysis 95 BPM Temperature Pre-Dialysis 97.9 degF Temperature Post -Dialysis 98.1 degF May 29, 2024 In-Center Hemodialysis Treatment [id number]:43:34.000Z [id number]:43:09.000Z BP Sitting (Pre-Dialysis) 95/51 mmHg BP Sitting (Post-Dialysis) 91/55 mmHg Concurrent Access: falseCentral Venous Catheter (CVC) Chest (Right) Arterial BP Standing (Pre-Dialysis) 89/50 mmHg BP Standing (P ost-Dialysis) 110/65 mmHg Sitting Heart Rate Pre-Dialysis 88 BPM Sitting Heart Rate Post-Dialysis 94 BPM Standing Heart Rate Pre-Dialysis 96 BPM Standing Heart Rate Post-Dialysis 100 BPM Temperature Pre-Dialysis 97.3 degF Temperature Post -Dialysis 98.1 degF May 27, 2024 In-Center Hemodialysis Treatment 5894-07-88Z11:53:00.000Z 3516-98-43L49:01:00.000Z BP Sitting (Pre-Dialysis) 94/50 mmHg BP Sitting (Post-Dialysis) 88/51 mmHg Concurrent Access: falseCentral Venous Catheter (CVC) Chest (Right) Arterial BP Standing (Pre-Dialysis) 93/52 mmHg BP Standing (P ost-Dialysis) 99/63 mmHg Sitting Heart Rate Pre-Dialysis 81 BPM Sitting H eart Rate Post-Dialysis 89 BPM Standing Heart Rate Pre-Dialysis 87 BPM Standing Heart Rate Post-Dialysis 102 BPM Temperature Pre-Dialysis 97.5 degF Temperature Post -Dialysis 98.3 degF May 24, 2024 In-Center Hemodialysis Treatment 2356-26-24E74:56:00.000Z 1712-20-29T24:12:13.000Z BP Sitting (Pre-Dialysis) 103/57 mmHg BP Sitting (Post-Dialysis) 103/53 mmHg Concurrent Access: falseCentral Venous Catheter (CVC) Chest (Right) Arterial BP Standing (Pre-Dialysis) 88/53 mmHg BP Standing (P ost-Dialysis) 104/58 mmHg Sitting Heart Rate Pre-Dialysis 84 BPM Sitting Heart Rate Post-Dialysis 86 BPM Standing Heart Rate Pre-Dialysis 100 BPM Standing Heart Rate Post-Dialysis 106 BPM Temperature Pre-Dialysis 97.6 degF Temperature Post -Dialysis 98.2 degF May 22, 2024 In-Center Hemodialysis Treatment [id number]:11:14.000Z 9973-00-63N21:12:54.000Z BP Sitting (Pre-Dialysis) 114/61 mmHg BP Sitting (Post-Dialysis) 94/44 mmHg Concurrent Access: falseCentral Venous Catheter (CVC) Chest (Right) Arterial Sitting Heart Rate Pre-Dialysis 79 BPM Sitting H eart Rate Post-Dialysis 90 BPM Temperature Pre-Dialysis 97.2 degF Temperature Post -Dialysis 98 degF May 20, 2024 In-Center Hemodialysis Treatment [id number]:37:00.000Z 9160-74-66Y52:51:12.000Z BP Sitting (Pre-Dialysis) 99/49 mmHg BP Sitting (Post-Dialysis) 88/51 mmHg Concurrent Access: falseCentral Venous Catheter (CVC) Chest (Right) Arterial BP Standing (Pre-Dialysis) 107/50 mmHg BP Standing (P ost-Dialysis) 95/57 mmHg Sitting Heart Rate Pre-Dialysis 81 BPM Sitting Heart Rate Post-Dialysis 97 BPM Standing Heart Rate Pre-Dialysis 93 BPM Standing Heart Rate Post-Dialysis 106 BPM Temperature Pre-Dialysis 97.5 degF Temperature Post -Dialysis 97.9 degF May 17, 2024 In-Center Hemodialysis Treatment 7812-77-92R99:02:00.000Z 3979-09-38O85:15:12.000Z BP Sitting (Pre-Dialysis) 101/74 mmHg BP Sitting (Post-Dialysis) 101/67 mmHg Concurrent Access: falseCentral Venous Catheter (CVC) Chest (Right) Arterial Sitting Heart Rate Pre-Dialysis 89 BPM Sitting H eart Rate Post-Dialysis 66 BPM Temperature Pre-Dialysis 97.7 degF Temperature Post -Dialysis 98.2 degF May 15, 2024 In-Center Hemodialysis Treatment 7295-06-38N01:34:00.000Z [id number]:50:13.000Z BP Sitting (Pre-Dialysis) 108/60 mmHg BP Sitting (Post-Dialysis) 100/59 mmHg Concurrent Access: falseCentral Venous Catheter (CVC) Chest (Right) Arterial Sitting Heart Rate Pre-Dialysis 88 BPM Sitting H eart Rate Post-Dialysis 95 BPM Temperature Pre-Dialysis 98 degF Temperature Post -Dialysis 98 degF DIALYSIS ORDER Dialysis Procedure Orders Type of Dialysis Procedure Order Order Date/Time Observations In-Center Hemodialysis Treatment June 182024 Target Weight 53 kg Dialysate Flow Rate 500 mL/min Blood Flow Rate 400 mL/min Treatment Time 180 min(total) Max UF Rate 13 mL/kg/hr Base Sodium Dialysate Base Sodium 138 mE q/L dialysate_temp 35.5 C BiCarb Dialysate BiCarbonate 38 meq/L Access Concurrent No Arterial Access Central Venous [facility] (CVC) (Chest (Right)) Venous Access Central Venous [place] [facility] (CVC) (Chest (Right)) Dialyzer Tricero Amy 15H 126 4 treatment_bath_[email or web address] Dialysate Bath Potassium Potassium 4 mEq /L Dialysate Bath Calcium Calcium 2.5 mEq/L Results Adequacy Description Draw Date Result/Unit Status Ref Range Result Comments PATIENT AGE 2024-07-24 20:01:49 59 Years F AMPUTATE FACTOR 2024-07-24 20:01:49 0 F WEIGHT (KG) 2024-07-24 20:01:49 53 kg F HEIGHT IN INCHES 2024-07-24 20:01:49 65 Inches F WEIGHT - PRE DAY 1 2024-06-28 01:37:11 54.2 kg F WEIGHT (KG) 2024-06-28 01:37:11 52 kg F spKt/V 2024-06-28 01:37:11 1.57 F BSA RADHA 2024-06-28 01:37:11 1.56 sq m F VT (KT/V TX VOL) 2024-06-28 01:37:11 30.7 L F URR% 2024-06-28 01:37:11 75 % F WEIGHT - POST DAY 1 2024-06-28 01:37:11 52.9 kg F PRESCRIBED DAYS/WEEK 2024-06-28 01:37:11 3 Day/Wk F BLOOD FLOW-QWB 2024-06-28 01:37:11 399 F CURRENT KRU 2024-06-28 01:37:11 F TBW (Roman) 2024-06-28 01:37:11 28.6 Liters F Total Kt/V 2024-06-28 01:37:11 1.57 F TOTAL HOURS/WEEK DIALYSIS 2024-06-28 01:37:11 7 hrs F Std Renal KT/V 2024-06-28 01:37:11 N/A F eKt/V 2024-06-28 01:37:11 1.3 F DIALYZER FLOW-QD 2024-06-28 01:37:11 500 mL/min F Dialyzer SILVIA 2024-06-28 01:37:11 1264 Calc F PATIENT AGE 2024-06-28 01:37:11 59 Years F nPCR 2024-06-28 01:37:11 1.12 G/KG/D F stdKT/V Total 2024-06-28 01:37:11 N/A F AMPUTATE FACTOR 2024-06-28 01:37:11 0 F KT/V PRESCRIBED 2024-06-28 01:37:11 2.06 F Residual kt/v 2024-06-28 01:37:11 F VM (KT/V MEAN VOL) 2024-06-28 01:37:11 31.5 F stdKt/V (DIAL) 2024-06-28 01:37:11 N/A F HEIGHT IN INCHES 2024-06-28 01:37:11 65 Inches F LENGTH OF DIALYSIS 2024-06-28 01:37:11 179 min F Urea nitrogen [Mass/volume] in Serum or Plasma 2024-06-28 01:16:20 56 mg/dL F 9.0-23.0 Urea nitrogen [Mass/volume] in Serum or Plasma --post dialysis 2024-06-27 21:04:20 14 mg/dL F 9.0-23.0 Creatinine [Mass/volume] in Serum or Plasma 2024-06-06 13:28:24 5.63 mg/dL F 0.5-1.1 URR% 2024-05-23 18:14:08 68 % F stdKT/V Total 2024-05-23 18:14:08 N/A F VM (KT/V MEAN VOL) 2024-05-23 18:14:08 31.8 F HEIGHT IN INCHES 2024-05-23 18:14:08 65 Inches F DIALYZER FLOW-QD 2024-05-23 18:14:08 500 mL/min F AMPUTATE FACTOR 2024-05-23 18:14:08 0 F TBW (Roman) 2024-05-23 18:14:08 27.98 Liters F BSA RADHA 2024-05-23 18:14:08 1.56 sq m F stdKt/V (DIAL) 2024-05-23 18:14:08 N/A F eKt/V 2024-05-23 18:14:08 1.05 F PRESCRIBED DAYS/WEEK 2024-05-23 18:14:08 3 Day/Wk F Total Kt/V 2024-05-23 18:14:08 1.26 F Std Renal KT/V 2024-05-23 18:14:08 N/A F Dialyzer SILVIA 2024-05-23 18:14:08 1264 Calc F VT (KT/V TX VOL) 2024-05-23 18:14:08 26.9 L F TOTAL HOURS/WEEK DIALYSIS 2024-05-23 18:14:08 9 hrs F Residual kt/v 2024-05-23 18:14:08 F spKt/V 2024-05-23 18:14:08 1.26 F WEIGHT - PRE DAY 1 2024-05-23 18:14:08 51.1 kg F BLOOD FLOW-QWB 2024-05-23 18:14:08 218 F KT/V PRESCRIBED 2024-05-23 18:14:08 2.07 F LENGTH OF DIALYSIS 2024-05-23 18:14:08 180 min F nPCR 2024-05-23 18:14:08 0.68 G/KG/D F PATIENT AGE 2024-05-23 18:14:08 59 Years F WEIGHT (KG) 2024-05-23 18:14:08 52 kg F CURRENT [facility] 2024-05-23 18:14:08 F WEIGHT - POST DAY 1 2024-05-23 18:14:08 50.4 kg F Urea nitrogen [Mass/volume] in Serum or Plasma --post dialysis 2024-05-23 18:12:23 11 mg/dL F 9.0-23.0 Urea nitrogen [Mass/volume] in Serum or Plasma 2024-05-23 17:36:11 34 mg/dL F 9.0-23.0 VM (KT/V MEAN VOL) 2024-05-16 20:25:50 33.4 F spKt/V 2024-05-16 20:25:50 1.41 F [facility] 2024-05-16 20:25:50 F TBW (Roman) 2024-05-16 20:25:50 28.92 Liters F WEIGHT - PRE DAY 1 2024-05-16 20:25:50 55 kg F nPCR 2024-05-16 20:25:50 0.27 G/KG/D F VT (KT/V TX VOL) 2024-05-16 20:25:50 33.4 L F BSA RADHA 2024-05-16 20:25:50 1.54 sq m F Dialyzer SILVIA 2024-05-16 20:25:50 1264 Calc F BLOOD FLOW-QWB 2024-05-16 20:25:50 376 F AMPUTATE FACTOR 2024-05-16 20:25:50 0 F stdKT/V Total 2024-05-16 20:25:50 N/A F stdKt/V (DIAL) 2024-05-16 20:25:50 N/A F HEIGHT IN INCHES 2024-05-16 20:25:50 65 Inches F LENGTH OF DIALYSIS 2024-05-16 20:25:50 180 min F Total Kt/V 2024-05-16 20:25:50 1.41 F URR% 2024-05-16 20:25:50 74 % F PATIENT AGE 2024-05-16 20:25:50 59 Years F Residual kt/v 2024-05-16 20:25:50 F Std Renal KT/V 2024-05-16 20:25:50 N/A F eKt/V 2024-05-16 20:25:50 1.18 F WEIGHT (KG) 2024-05-16 20:25:50 50 kg F TOTAL HOURS/WEEK DIALYSIS 2024-05-16 20:25:50 3 hrs F DIALYZER FLOW-QD 2024-05-16 20:25:50 500 mL/min F KT/V PRESCRIBED 2024-05-16 20:25:50 2.1 F PRESCRIBED DAYS/WEEK 2024-05-16 20:25:50 3 Day/Wk F WEIGHT - POST DAY 1 2024-05-16 20:25:50 54.2 kg F Creatinine [Mass/volume] in Serum or Plasma 2024-05-16 20:24:20 4.5 mg/dL F 0.5-1.1 Urea nitrogen [Mass/volume] in Serum or Plasma 2024-05-16 20:24:20 23 mg/dL F 9.0-23.0 Urea nitrogen [Mass/volume] in Serum or Plasma --post dialysis 2024-05-16 15:08:14 6 mg/dL F 9.0-23.0 Urea nitrogen [Mass/volume] in Serum or Plasma --post dialysis PRESCRIBED DAYS/WEEK eKt/V TBW (Roman) WEIGHT - POST DAY 1 Total Kt/V KT/V PRESCRIBED LENGTH OF DIALYSIS URR% Creatinine [Mass/volume] in Serum or Plasma TOTAL HOURS/WEEK DIALYSIS Std Renal KT/V VM (KT/V MEAN VOL) Residual kt/v CURRENT KRU nPCR VT (KT/V TX VOL) stdKT/V Total BSA RADHA Urea nitrogen [Mass/volume] in Serum or Plasma stdKt/V (DIAL) Dialyzer SILVIA DIALYZER FLOW-QD WEIGHT - PRE DAY 1 spKt/V BLOOD FLOW-QWB Anemia Description Draw Date Result/Unit Status Ref Range Result Comments HCT CALC HGBX3 2024-06-27 21:54:02 21.3 % F 37.0-47.0 Hemoglobin [Mass/volume] in Blood 2024-06-27 21:53:07 7.1 g/dL F 12.0-16.0 HCT CALC HGBX3 2024-06-26 20:51:07 21.3 % F 37.0-47.0 ABSOLUTE RETIC COUNT 2024-06-20 18:15:07 0.081 x 10^6 cells/uL F 0.035-0.127 Hemoglobin [Mass/volume] in Blood 2024-06-20 18:15:07 7.1 g/dL F 12.0-16.0 Reticulocytes/100 erythrocytes in Blood by Automated count 2024-06-20 18:15:07 3.34 % F 0.7-2.5 HCT CALC HGBX3 2024-06-13 13:49:14 21.6 % F 37.0-47.0 Hemoglobin [Mass/volume] in Blood 2024-06-13 13:48:11 7.2 g/dL F 12.0-16.0 HCT CALC HGBX3 2024-06-06 19:27:17 23.7 % F 37.0-47.0 Hemoglobin [Mass/volume] in Blood 2024-06-06 19:26:23 7.9 g/dL F 12.0-16.0 Platelets [#/volume] in Blood by Automated count 2024-06-06 19:26:23 263 x 10^3 cells/uL F 140.0-450.0 MCH [Entitic mass] by Automated count 2024-06-06 19:26:23 30.4 pg F 25.9-34.2 Erythrocytes [#/volume] in Blood by Automated count 2024-06-06 19:26:23 2.6 x 10^6 cells/uL F 3.85-5.2 Hematocrit [Volume Fraction] of Blood by Automated count 2024-06-06 19:26:23 26.3 % F 37.0-47.0 Erythrocyte distribution width [Ratio] by Automated count 2024-06-06 19:26:23 15.3 % F 11.0-15.0 MCHC [Mass/volume] by Automated count 2024-06-06 19:26:23 30.1 g/dL F 29.6-35.3 MCV [Entitic volume] by Automated count 2024-06-06 19:26:23 101.1 fL F 80.0-100.0 HCT CALC HGBX3 2024-05-30 14:36:09 23.1 % F 37.0-47.0 Hemoglobin [Mass/volume] in Blood 2024-05-30 14:35:22 7.7 g/dL F 12.0-16.0 HCT CALC HGBX3 2024-05-23 18:51:03 22.8 % F 37.0-47.0 Hemoglobin [Mass/volume] in Blood 2024-05-23 18:50:19 7.6 g/dL F 12.0-16.0 TIBC 2024-05-17 09:55:46 278 ug/dL F 250.0-425.0 IRON SATURATION 2024-05-17 09:55:46 27 % F 16.0-46.0 Ferritin [Mass/volume] in Serum or Plasma 2024-05-17 08:10:35 188 ng/mL F 10.0-291.0 Iron [Mass/volume] in Serum or Plasma 2024-05-17 07:35:58 75 ug/dL F 50.0-170.0 Iron binding capacity.unsaturated [Mass/volume] in Serum or Plasma 2024-05-17 07:35:58 203 ug/dL F 80.0-375.0 HCT CALC HGBX3 2024-05-17 00:53:18 21.9 % F 37.0-47.0 Erythrocyte distribution width [Ratio] by Automated count 2024-05-17 00:52:20 14.9 % F 11.0-15.0 Platelets [#/volume] in Blood by Automated count 2024-05-17 00:52:20 123 x 10^3 cells/uL F 140.0-450.0 MCH [Entitic mass] by Automated count 2024-05-17 00:52:20 30.5 pg F 25.9-34.2 MCHC [Mass/volume] by Automated count 2024-05-17 00:52:20 31.6 g/dL F 29.6-35.3 Hematocrit [Volume Fraction] of Blood by Automated count 2024-05-17 00:52:20 23.2 % F 37.0-47.0 Reticulocytes/100 erythrocytes in Blood by Automated count 2024-05-17 00:52:20 4.8 % F 0.7-2.5 Hemoglobin [Mass/volume] in Blood 2024-05-17 00:52:20 7.3 g/dL F 12.0-16.0 Erythrocytes [#/volume] in Blood by Automated count 2024-05-17 00:52:20 2.41 x 10^6 cells/uL F 3.85-5.2 MCV [Entitic volume] by Automated count 2024-05-17 00:52:20 96.4 fL F 80.0-100.0 Iron binding capacity.unsaturated [Mass/volume] in Serum or Plasma TIBC IRON SATURATION Iron [Mass/volume] in Serum or Plasma Platelets [#/volume] in Blood by Automated count Erythrocytes [#/volume] in Blood by Automated count HCT CALC HGBX3 Hemoglobin [Mass/volume] in Blood MCV [Entitic volume] by Automated count Ferritin [Mass/volume] in Serum or Plasma MCH [Entitic mass] by Automated count MCHC [Mass/volume] by Automated count Erythrocyte distribution width [Ratio] by Automated count Hematocrit [Volume Fraction] of Blood by Automated count Comorbidities Description Draw Date Result/Unit Status Ref Range Result Comments Thyrotropin [Units/volume] in Serum or Plasma by Detection limit <= 0.05 mIU/L 2024-07-13 04:59:59 1.8 uIU/mL F 0.46-4.68 FluidBP Description Draw Date Result/Unit Status Ref Range Result Comments Sodium [Moles/volume] in Serum or Plasma 2024-06-06 17:18:45 133 mEq/L F 132.0-146.0 Sodium [Moles/volume] in Serum or Plasma 2024-05-17 07:35:58 140 mEq/L F 132.0-146.0 Sodium [Moles/volume] in Serum or Plasma General Description Draw Date Result/Unit Status Ref Range Result Comments Chloride [Moles/volume] in Serum or Plasma 2024-06-06 17:18:45 94 mEq/L F 99.0-109.0 Aspartate aminotransferase [Enzymatic activity/volume] in Serum or Plasma 2024-06-06 13:28:24 22 U/L F 0.0-33.0 Alanine aminotransferase [Enzymatic activity/volume] in Serum or Plasma 2024-06-06 13:28:24 22 U/L F 10.0-49.0 Chloride [Moles/volume] in Serum or Plasma 2024-05-17 07:35:58 101 mEq/L F 99.0-109.0 Aspartate aminotransferase [Enzymatic activity/volume] in Serum or Plasma 2024-05-16 20:24:20 45 U/L F 0.0-33.0 Alanine aminotransferase [Enzymatic activity/volume] in Serum or Plasma 2024-05-16 20:24:20 44 U/L F 10.0-49.0 Aluminum [Mass/volume] in Serum or Plasma 2024-05-16 17:23:29 16 ug/L F 0.0-9.0 Alanine aminotransferase [Enzymatic activity/volume] in Serum or Plasma Chloride [Moles/volume] in Serum or Plasma Aspartate aminotransferase [Enzymatic activity/volume] in Serum or Plasma InfectionVaccination Description Draw Date Result/Unit Status Ref Range Result Comments Eosinophils/100 leukocytes in Blood by Automated count 2024-06-06 19:26:23 6.9 % F Basophils/100 leukocytes in Blood by Automated count 2024-06-06 19:26:23 0.2 % F Neutrophils/100 leukocytes in Blood by Automated count 2024-06-06 19:26:23 70 % F Lymphocytes/100 leukocytes in Blood by Automated count 2024-06-06 19:26:23 16.9 % F Monocytes [#/volume] in Blood by Automated count 2024-06-06 19:26:23 836 Cells/uL F 0.0-1100.0 Leukocytes [#/volume] in Blood by Automated count 2024-06-06 19:26:23 13.7 x 10^3 cells/uL F 4.0-11.0 Lymphocytes [#/volume] in Blood by Automated count 2024-06-06 19:26:23 2317 Cells/uL F 620.0-3660.0 Monocytes/100 leukocytes in Blood by Automated count 2024-06-06 19:26:23 6.1 % F Basophils [#/volume] in Blood by Automated count 2024-06-06 19:26:23 27 Cells/uL F 0.0-400.0 Eosinophils [#/volume] in Blood by Automated count 2024-06-06 19:26:23 946 Cells/uL F 0.0-700.0 Neutrophils [#/volume] in Blood by Automated count 2024-06-06 19:26:23 9597 Cells/uL F 2000.0-8800.0 Monocytes/100 leukocytes in Blood by Automated count 2024-05-17 00:52:20 5.4 % F Lymphocytes/100 leukocytes in Blood by Automated count 2024-05-17 00:52:20 17.5 % F Leukocytes [#/volume] in Blood by Automated count 2024-05-17 00:52:20 10.8 x 10^3 cells/uL F 4.0-11.0 Lymphocytes [#/volume] in Blood by Automated count 2024-05-17 00:52:20 1883 Cells/uL F 620.0-3660.0 Neutrophils/100 leukocytes in Blood by Automated count 2024-05-17 00:52:20 73.4 % F Basophils/100 leukocytes in Blood by Automated count 2024-05-17 00:52:20 0.9 % F Eosinophils/100 leukocytes in Blood by Automated count 2024-05-17 00:52:20 2.9 % F Monocytes [#/volume] in Blood by Automated count 2024-05-17 00:52:20 581 Cells/uL F 0.0-1100.0 Basophils [#/volume] in Blood by Automated count 2024-05-17 00:52:20 97 Cells/uL F 0.0-400.0 Eosinophils [#/volume] in Blood by Automated count 2024-05-17 00:52:20 312 Cells/uL F 0.0-700.0 Neutrophils [#/volume] in Blood by Automated count 2024-05-17 00:52:20 7898 Cells/uL F 2000.0-8800.0 Basophils [#/volume] in Blood by Automated count Neutrophils/100 leukocytes in Blood by Automated count Neutrophils [#/volume] in Blood by Automated count Lymphocytes/100 leukocytes in Blood by Automated count Eosinophils/100 leukocytes in Blood by Automated count Leukocytes [#/volume] in Blood by Automated count Monocytes/100 leukocytes in Blood by Automated count Lymphocytes [#/volume] in Blood by Automated count Eosinophils [#/volume] in Blood by Automated count Basophils/100 leukocytes in Blood by Automated count Monocytes [#/volume] in Blood by Automated count MineralBone Disorder Description Draw Date Result/Unit Status Ref Range Result Comments CA CORRECTED 2024-06-28 07:22:22 9.2 mg/dL F CA/PHOS PRODUCT 2024-06-28 07:20:37 90.5 Calc F 21.0-53.0 CA*PO4 CORRCTD 2024-06-28 07:20:37 95.5 Calc F 21.0-53.0 Phosphate [Mass/volume] in Serum or Plasma 2024-06-28 06:47:34 10.4 mg/dL F 2.4-5.1 Calcium [Mass/volume] in Serum or Plasma 2024-06-28 06:47:34 8.7 mg/dL F 8.7-10.4 Parathyrin.intact [Mass/volume] in Serum or Plasma 2024-06-27 21:39:15 276 pg/mL F 18.0-80.0 Alkaline phosphatase [Enzymatic activity/volume] in Serum or Plasma 2024-06-06 13:28:24 111 U/L F 46.0-116.0 25-Hydroxyvitamin D3+25-Hydroxyvitamin D2 [Mass/volume] in Serum or Plasma 2024-05-31 07:30:40 61 ng/mL F CA CORRECTED 2024-05-24 08:56:58 9.9 mg/dL F CA/PHOS PRODUCT 2024-05-24 08:55:33 73.9 Calc F 21.0-53.0 CA*PO4 CORRCTD 2024-05-24 08:55:33 81.8 Calc F 21.0-53.0 Phosphate [Mass/volume] in Serum or Plasma 2024-05-24 07:43:55 8.3 mg/dL F 2.4-5.1 Calcium [Mass/volume] in Serum or Plasma 2024-05-24 07:43:55 8.9 mg/dL F 8.7-10.4 Parathyrin.intact [Mass/volume] in Serum or Plasma 2024-05-23 17:43:18 187 pg/mL F 18.0-80.0 CA CORRECTED 2024-05-17 09:57:48 9.6 mg/dL F CA/PHOS PRODUCT 2024-05-17 09:55:46 43.9 Calc F 21.0-53.0 CA*PO4 CORRCTD 2024-05-17 09:55:46 48.8 Calc F 21.0-53.0 Phosphate [Mass/volume] in Serum or Plasma 2024-05-17 07:35:58 5.1 mg/dL F 2.4-5.1 Calcium [Mass/volume] in Serum or Plasma 2024-05-17 07:35:58 8.6 mg/dL F 8.7-10.4 Alkaline phosphatase [Enzymatic activity/volume] in Serum or Plasma 2024-05-16 20:24:20 166 U/L F 46.0-116.0 Parathyrin.intact [Mass/volume] in Serum or Plasma 2024-05-16 17:04:22 121 pg/mL F 18.0-80.0 CA/PHOS PRODUCT Phosphate [Mass/volume] in Serum or Plasma CA*PO4 CORRCTD CA CORRECTED Calcium [Mass/volume] in Serum or Plasma Alkaline phosphatase [Enzymatic activity/volume] in Serum or Plasma Parathyrin.intact [Mass/volume] in Serum or Plasma Nutrition Description Draw Date Result/Unit Status Ref Range Result Comments Potassium [Moles/volume] in Serum or Plasma 2024-06-06 17:18:45 3.8 mEq/L F 3.5-5.5 GLOBULIN 2024-06-06 13:29:25 2 g/dL F 0.9-5.0 A/G RATIO 2024-06-06 13:29:25 1.7 Calc F 1.0-2.5 Lactate dehydrogenase [Enzymatic activity/volume] in Serum or Plasma 2024-06-06 13:28:24 185 U/L F 120.0-246.0 Bicarbonate [Moles/volume] in Serum or Plasma 2024-06-06 13:28:24 18 mEq/L F 20.0-31.0 Protein [Mass/volume] in Serum or Plasma 2024-06-06 13:28:24 5.4 g/dL F 5.7-8.2 Albumin [Mass/volume] in Serum or Plasma by Bromocresol green (BCG) dye binding method 2024-06-06 13:28:24 3.4 g/dL F 3.4-4.8 Glucose [Mass/volume] in Serum or Plasma 2024-06-06 13:28:24 158 mg/dL F 70.0-99.0 Potassium [Moles/volume] in Serum or Plasma 2024-05-17 07:35:58 3.3 mEq/L F 3.5-5.5 GLOBULIN 2024-05-16 20:25:02 1.9 g/dL F 0.9-5.0 A/G RATIO 2024-05-16 20:25:02 1.5 Calc F 1.0-2.5 Glucose [Mass/volume] in Serum or Plasma 2024-05-16 20:24:20 148 mg/dL F 70.0-99.0 Lactate dehydrogenase [Enzymatic activity/volume] in Serum or Plasma 2024-05-16 20:24:20 304 U/L F 120.0-246.0 Bicarbonate [Moles/volume] in Serum or Plasma 2024-05-16 20:24:20 23 mEq/L F 20.0-31.0 Albumin [Mass/volume] in Serum or Plasma by Bromocresol green (BCG) dye binding method 2024-05-16 20:24:20 2.8 g/dL F 3.4-4.8 Protein [Mass/volume] in Serum or Plasma 2024-05-16 20:24:20 4.7 g/dL F 5.7-8.2 Glucose [Mass/volume] in Serum or Plasma Bicarbonate [Moles/volume] in Serum or Plasma Protein [Mass/volume] in Serum or Plasma Lactate dehydrogenase [Enzymatic activity/volume] in Serum or Plasma A/G RATIO Albumin [Mass/volume] in Serum or Plasma by Bromocresol green (BCG) dye binding method GLOBULIN Potassium [Moles/volume] in Serum or Plasma Encounters No encounter information to report Immunizations Ordered Immunization Name Filled Immunization Name Date Status Comments Refusal Reason TST-PPD intradermal 2024-06-03 15:20:00 TST-PPD intradermal 2024-05-15 20:00:00 Plan of Treatment Planned Activity Provider Planned Date Details Commen ts Diagnostic Test Pending Roger Morales 2024-05-17 14:01:06 Hemoglobin [Mass/volume] in Blood [code = 718-7] Diagnostic Test Pending Roger Morales 2024-05-15 07:29:02 Alanine aminotransferase [Enzymatic activity/volume] in Serum or Plasma [code = 1742-6] Diagnostic Test Pending Roger Morales 2024-07-18 05:00:00 Ferritin [Mass/volume] in Serum or Plasma [code = 2276-4] Diagnostic Test Pending [facility] 2024-05-15 07:28:16 Parathyrin.intact [Mass/volume] in Serum or Plasma [code = 2731-8] Diagnostic Test Pending [facility] 2024-05-14 19:04:20 Sodium [Moles/volume] in Serum or Plasma [code = 2951-2] Diagnostic Test Pending [facility] 2024-05-14 19:00:45 Glucose [Mass/volume] in Serum or Plasma [code = 2345-7] Diagnostic Test Pending [facility] 2024-05-14 19:00:28 Creatinine [Mass/volume] in Serum or Plasma [code = 2160-0] Diagnostic Test Pending [facility] 2024-05-14 19:00:03 Albumin [Mass/volume] in Serum or Plasma by Bromocresol green (BCG) dye binding method [code = 85889-2] [facility]24-[facility]-14 19:00:09 Aluminum [Mass/volume] in Serum or Plasma [code = 5574-9] [facility] 2024-06-27 20:12:11 In-Center Hemodialysis Treatment [code = XEA915] [facility] June 12, 2024 Diet Calorie 30 kcal/kg Fluid Value 1000 mL/d Phosphorus Value 700 mg/d Potassium Value 2000 mg/d Protein Value 1.3 gm/kg Sodium Value 2000 mg/d Calculated Weight 52 kg dietary_diet_modification Carb Controlle d;
--- OUTSIDE RECORDS SUMMARY | 2024-07-25 06:55 | XMS_ITS | Clinical Summary ---
Author Organization [facility] Address [address] [place] [address] Care Team Providers Care Interactive Video Technician Name Role Phone León Varela MD Primary Care Provider [phone] Source Comments [facility],non-owned Affiliates and Associated Physician Practices is amultiple site organization consisting of ambulatory clinics and hospital sitesin [place], [place], [place] and [place]. This disclosure is being madepursuant to the Care Everywhere program and may not contain all information available regarding this patient. Last updated 17.[facility] Allergies Active Allergy Reactions Criticality Noted Date Comments Advair Diskus Shortness of Breath High 03/22/2024 Codeine Palpitations Low 08/11/2019 Medications * Be aware that medications may not be up to date on this document. Alwaysverify current medications with the patient. albuterol HFA (Proventil; Ventolin; Proair) 108 (90 Base) MCG/ACT inhaler INHALE 2 PUFFS BY MOUTH 4 TIMES DAILY NEEDED 02/08/2024 Active atorvastatin (Lipitor) 40 MG tablet Take 1 (one) tablet by mouth once daily 02/28/2024 Active clobetasol (Temovate) 0.05 % ointment APPLY A SMALL AMOUNT TO AFFECTED AREA DIRECTED TWICE DAILY FOR 7-14 DAYS 02/12/2024 Active Trelegy Ellipta 200-62.5-25 MCG/ACT inhaler Inhale 1 (one) puff by mouth once daily 02/23/2024 Active hydrOXYzine HCl (Atarax) 25 MG tablet TAKE 1 TO 2 TABLETS BY MOUTH THREE TIMES DAILY NEEDED 11/11/2023 Active montelukast (Singulair) 10 MG tablet Take 1 (one) tablet by mouth once daily 03/09/2024 Active potassium chloride ER (K-TAB) 20 MEQ tablet Take 1 (one) tablet by mouth 2 times daily 08/23/2023 Active Social History Tobacco Use Types Packs/Day Years Used Date Smoking Tobacco: Never Assessed Comments Unknown Sex and Gender Information Value Date Recorded Sex Assigned at Not on file 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 Gender Identity Not on file Sexual Orientation Not on file Plan of Treatment Health Maintenance Due Date Last Done Comments COLOGUARD (AGES 45-75) - COL ON CA SCREENING 1966 COLON MONITORING 1966 COLONOSCOPY - COLON CA SCREENING 1966 CT COLONOGRAPHY - COLON CA SCREENING 1966 Colorectal Cancer Screening 1966 FIT - COLON CA SCREENING 1966 FLEX SIG - COLON CA SCREENING 1966 PAP SMEAR 1966 HIV SCREENING 1981 HEPATITIS C SCREENING 03/24/1984 DTAP/TDAP/TD VACCINES (1 - Tdap) 1985 HEPATITIS B VACCINE (1 of 3 - 19+ 3-dose series) 1985 PNEUMOCOCCAL VACCINE 50+ (1 of 1 - PCV) 2016 ZOSTER VACCINE (1 of 2) 2016 MAMMOGRAM 08/10/2021 08/11/2019 COVID-19 VACCINE (1 - 2023-2 5 season) 2023 DEPRESSION SCREENING 03/20/2024 INFLUENZA VACCINE (Season Ended) 2024 HIB VACCINE Aged Out No longer eligi ble based on patient's age to complete this topic HPV VACCINE Aged Out No longer eligi ble based on patient's age to complete this topic MENINGOCOCCAL (Group B) VACC INE SHARED DECISION-MAKING Aged Out No longer eligibl e based on patient's age to complete this topic MENINGOCOCCAL GROUPS A/C/Y/W VACCINE Aged Out No longer eligible b ased on patient's age to complete this topic Insurance [employer] Care Teams Interactive Video Technician Relationship Specialty Start Date End Date León Varela MD [address] [place] [address] PCP - General 04/29/14
--- OUTSIDE RECORDS SUMMARY | 2024-07-25 06:55 | XMS_ITS | Clinical Summary ---
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 Name Role Phone Unavailable Primary Care Provider Unavailabl e Social History Tobacco Use Types Packs/Day Years Used Date Smoking Tobacco: Never Assessed Comments Unknown Sex and Gender Information Value Date Recorded Sex Assigned at Not on file Legal Sex Female 8:09 PM CDT Gender Identity Not on file Sexual Orientation Not on file Plan of Treatment Health Maintenance Due Date Last Done Comments Cervical Cancer Screening Pa p Smear (Age 30 to 64) Every 3 Years 1966 Colorectal Cancer Screening Colonoscopy (10 Years) 1966 Annual Physical 1969 Hepatitis C 1984 DTaP, Tdap and Td Vaccines ( 1 - Tdap) 1985 Hepatitis B Vaccines (1 of 3 - 19+ 3-dose series) 1985 Cervical Cancer Screening Pa p with HPV Testing (Age 30 to 64) Every 5 Years 1996 Cervical Cancer Screening with HPV 1996 Mammogram Screening 2006 Pneumococcal Vaccine: 50+ Ye ars (1 of 1 - PCV) 2016 Zoster Vaccines (1 of 2) 2016 COVID-19 Vaccine (2023-2 5 season) 2023 Meningococcal B Vaccine Aged Out No l onger eligible based on patient's age to complete this topic Meningococcal Vaccine Aged Out No tahir rohan eligible based on patient's age to complete this topic RSV Immunizations Under 20 Months Aged Out No longer eligible based on patient's age to complete this topic
--- OUTSIDE RECORDS SUMMARY | 2024-07-25 06:55 | XMS_ITS ---
Author Organization [facility] Address [address] [place] [address] Care Team Providers Care Sub Assembly Team Worker Name Role Phone León Varela MD Primary Care Provider [phone] Roger Morales MD Unavailable [phone] Disha Gutierrez MD Unavailable [phone] Dialysis Access Sites Type Status Location Placement Date Removal Da te Hemodialysis Cath Double 05/10/24 Tunneled catheter Right Internal Jugular Active Right Neck (side) - Anterior 05/10/2024 Hemodialysis Cath Triple 05/03/24 Non-tunneled catheter Right Internal Jugular Inactive Right Neck (side) - Anterior 05/03/2024 05/10/2024 Procedures Procedure Name Priority Date/Time Associated Diagnosis Comments POCUS DUPLEX BILATERAL VESSEL MAPPING FOR HD ACCESS Schedule Routine, Read Routine (OP Routine) 07/18/2024 2:08 PM CDT ESRD (end stage renal disease) (HCC) POCT GLUCOSE DEVICE Routine 05/13/2024 6 :09 PM LINE CLEANER POCT GLUCOSE DEVICE Routine 05/13/2024 1 1:01 AM LINE CLEANER HEMODIALYSIS Routine 05/13/2024 8:54 AM LINE CLEANER POCT GLUCOSE DEVICE Routine 05/13/2024 7 :52 AM LINE CLEANER EGFR Routine 05/12/2024 8:57 PM LINE CLEANER DIFFERENTIAL AUTO Routine 05/12/2024 8:5 7 PM LINE CLEANER TYPE AND SCREEN Timed 05/12/2024 8:57 PM LINE CLEANER PHOSPHORUS Routine 05/12/2024 8:57 PM LINE CLEANER MAGNESIUM Routine 05/12/2024 8:57 PM LINE CLEANER CBC WITH AUTO DIFFERENTIAL Routine 05/12/2024 8:57 PM LINE CLEANER BASIC METABOLIC PANEL Routine 05/12/2024 8:57 PM LINE CLEANER POCT GLUCOSE DEVICE Routine 05/12/2024 7 :41 PM LINE CLEANER POCT GLUCOSE DEVICE Routine 05/12/2024 5 :39 PM LINE CLEANER POCT GLUCOSE DEVICE Routine 05/12/2024 1 2:10 PM LINE CLEANER POCT GLUCOSE DEVICE Routine 05/12/2024 8 :30 AM LINE CLEANER DIFFERENTIAL AUTO Routine 05/11/2024 10: 31 PM LINE CLEANER CBC WITH AUTO DIFFERENTIAL Routine 05/11/2024 10:31 PM LINE CLEANER EGFR Routine 05/11/2024 8:42 PM LINE CLEANER PHOSPHORUS Routine 05/11/2024 8:42 PM LINE CLEANER MAGNESIUM Routine 05/11/2024 8:42 PM LINE CLEANER BASIC METABOLIC PANEL Routine 05/11/2024 8:42 PM LINE CLEANER POCT GLUCOSE DEVICE Routine 05/11/2024 7 :41 PM LINE CLEANER POCT GLUCOSE DEVICE Routine 05/11/2024 4 :38 PM LINE CLEANER POCT GLUCOSE DEVICE Routine 05/11/2024 1 1:45 AM LINE CLEANER POCT GLUCOSE DEVICE Routine 05/11/2024 9 :19 AM LINE CLEANER EGFR Routine 05/10/2024 9:54 PM LINE CLEANER DIFFERENTIAL AUTO Routine 05/10/2024 9:5 4 PM LINE CLEANER PHOSPHORUS Routine 05/10/2024 9:54 PM LINE CLEANER MAGNESIUM Routine 05/10/2024 9:54 PM LINE CLEANER CBC WITH AUTO DIFFERENTIAL Routine 05/10/2024 9:54 PM LINE CLEANER BASIC METABOLIC PANEL Routine 05/10/2024 9:54 PM LINE CLEANER POCT GLUCOSE DEVICE Routine 05/10/2024 8 :10 PM LINE CLEANER HEMODIALYSIS Routine 05/10/2024 12:00 PM LINE CLEANER POCT GLUCOSE DEVICE Routine 05/10/2024 1 1:35 AM LINE CLEANER TUNNELED LINE PLACEMENT > 5 YEARS IP Routine 05/10/2024 10:09 AM LINE CLEANER POCT GLUCOSE DEVICE Routine 05/10/2024 7 :20 AM LINE CLEANER POCT GLUCOSE DEVICE Routine 05/10/2024 4 :03 AM LINE CLEANER EGFR Routine 05/09/2024 9:55 PM LINE CLEANER DIFFERENTIAL AUTO Routine 05/09/2024 9:5 5 PM LINE CLEANER PHOSPHORUS Routine 05/09/2024 9:55 PM LINE CLEANER MAGNESIUM Routine 05/09/2024 9:55 PM LINE CLEANER CBC WITH AUTO DIFFERENTIAL Routine 05/09/2024 9:55 PM LINE CLEANER BASIC METABOLIC PANEL Routine 05/09/2024 9:55 PM LINE CLEANER POCT GLUCOSE DEVICE Routine 05/09/2024 8 :07 PM LINE CLEANER POCT GLUCOSE DEVICE Routine 05/09/2024 5 :07 PM LINE CLEANER POCT GLUCOSE DEVICE Routine 05/09/2024 1 2:11 PM LINE CLEANER US VEIN MAPPING DUPLEX UPPER EXTREMITY BILATERAL IP Routine 05/09/2024 11:33 AM LINE CLEANER POCT GLUCOSE DEVICE Routine 05/09/2024 7 :11 AM LINE CLEANER POCT GLUCOSE DEVICE Routine 05/08/2024 8 :19 PM LINE CLEANER HEMODIALYSIS Routine 05/08/2024 5:26 PM LINE CLEANER POCT GLUCOSE DEVICE Routine 05/08/2024 5 :16 PM LINE CLEANER POCT GLUCOSE DEVICE Routine 05/08/2024 1 1:04 AM LINE CLEANER POCT GLUCOSE DEVICE Routine 05/08/2024 7 :29 AM LINE CLEANER EGFR Routine 05/08/2024 5:11 AM LINE CLEANER DIFFERENTIAL AUTO Routine 05/08/2024 5:1 1 AM LINE CLEANER PHOSPHORUS Routine 05/08/2024 5:11 AM LINE CLEANER MAGNESIUM Routine 05/08/2024 5:11 AM LINE CLEANER BASIC METABOLIC PANEL Routine 05/08/2024 5:11 AM LINE CLEANER CBC WITH AUTO DIFFERENTIAL Routine 05/08/2024 5:11 AM LINE CLEANER POCT GLUCOSE DEVICE Routine 05/07/2024 8 :37 PM LINE CLEANER POCT GLUCOSE DEVICE Routine 05/07/2024 3 :07 PM LINE CLEANER HEMODIALYSIS Routine 05/07/2024 11:55 AM LINE CLEANER POCT GLUCOSE DEVICE Routine 05/07/2024 1 1:08 AM LINE CLEANER POCT GLUCOSE DEVICE Routine 05/07/2024 7 :28 AM LINE CLEANER EGFR Routine 05/07/2024 4:14 AM LINE CLEANER DIFFERENTIAL AUTO Routine 05/07/2024 4:1 4 AM LINE CLEANER PHOSPHORUS Routine 05/07/2024 4:14 AM LINE CLEANER MAGNESIUM Routine 05/07/2024 4:14 AM LINE CLEANER BASIC METABOLIC PANEL Routine 05/07/2024 4:14 AM LINE CLEANER CBC WITH AUTO DIFFERENTIAL Routine 05/07/2024 4:14 AM LINE CLEANER POCT GLUCOSE DEVICE Routine 05/06/2024 7 :53 PM LINE CLEANER POCT GLUCOSE DEVICE Routine 05/06/2024 5 :55 PM LINE CLEANER US VEIN DUPLEX LOWER EXTREMITY BILATERAL COMPLETE IP Routine 05/06/2024 2:05 PM LINE CLEANER POCT GLUCOSE DEVICE Routine 05/06/2024 1 1:42 AM LINE CLEANER POCT GLUCOSE DEVICE Routine 05/06/2024 7 :36 AM LINE CLEANER EGFR Routine 05/06/2024 4:38 AM LINE CLEANER DIFFERENTIAL AUTO Routine 05/06/2024 4:3 8 AM LINE CLEANER PHOSPHORUS Routine 05/06/2024 4:38 AM LINE CLEANER MAGNESIUM Routine 05/06/2024 4:38 AM LINE CLEANER BASIC METABOLIC PANEL Routine 05/06/2024 4:38 AM LINE CLEANER CBC WITH AUTO DIFFERENTIAL Routine 05/06/2024 4:38 AM LINE CLEANER POCT GLUCOSE DEVICE Routine 05/05/2024 8 :39 PM LINE CLEANER POCT GLUCOSE DEVICE Routine 05/05/2024 4 :48 PM LINE CLEANER POCT GLUCOSE DEVICE Routine 05/05/2024 1 2:27 PM LINE CLEANER POCT GLUCOSE DEVICE Routine 05/05/2024 8 :14 AM LINE CLEANER EGFR Routine 05/05/2024 6:13 AM LINE CLEANER DIFFERENTIAL AUTO Routine 05/05/2024 6:1 3 AM LINE CLEANER PHOSPHORUS Routine 05/05/2024 6:13 AM LINE CLEANER MAGNESIUM Routine 05/05/2024 6:13 AM LINE CLEANER BASIC METABOLIC PANEL Routine 05/05/2024 6:13 AM LINE CLEANER CBC WITH AUTO DIFFERENTIAL Routine 05/05/2024 6:13 AM LINE CLEANER HEPATITIS B CORE ANTIBODY, TOTAL Routine 05/05/2024 6:13 AM LINE CLEANER POCT GLUCOSE DEVICE Routine 05/04/2024 1 1:33 PM LINE CLEANER BLOOD CULTURE Routine 05/04/2024 9:54 PM LINE CLEANER BLOOD CULTURE Routine 05/04/2024 9:54 PM LINE CLEANER RESPIRATORY PATHOGEN PANEL Routine 05/04/2024 9:54 PM LINE CLEANER XR CHEST 1 VIEW ED Urgent/IP Urgent 05/04/2024 9:16 PM LINE CLEANER POCT GLUCOSE DEVICE Routine 05/04/2024 8 :28 PM LINE CLEANER POCT GLUCOSE DEVICE Routine 05/04/2024 4 :40 PM LINE CLEANER POCT GLUCOSE DEVICE Routine 05/04/2024 2 :39 PM LINE CLEANER POCT GLUCOSE DEVICE Routine 05/04/2024 1 2:25 PM LINE CLEANER HEMODIALYSIS Routine 05/04/2024 11:05 AM LINE CLEANER EGFR Timed 05/04/2024 10:45 AM LINE CLEANER DIFFERENTIAL AUTO Timed 05/04/2024 10: 45 AM LINE CLEANER CBC WITH AUTO DIFFERENTIAL Timed 05/04/2024 10:45 AM LINE CLEANER MAGNESIUM Timed 05/04/2024 10:45 AM LINE CLEANER PHOSPHORUS Timed 05/04/2024 10:45 AM LINE CLEANER BASIC METABOLIC PANEL Timed 05/04/2024 10:45 AM LINE CLEANER POCT GLUCOSE DEVICE Routine 05/04/2024 8 :18 AM LINE CLEANER EGFR Timed 05/03/2024 11:05 PM LINE CLEANER MAGNESIUM Timed 05/03/2024 11:05 PM LINE CLEANER PHOSPHORUS Timed 05/03/2024 11:05 PM LINE CLEANER BASIC METABOLIC PANEL Timed 05/03/2024 11:05 PM LINE CLEANER POCT GLUCOSE DEVICE Routine 05/03/2024 8 :27 PM LINE CLEANER HEMOGLOBIN AND HEMATOCRIT Timed 05/03/2024 5:05 PM LINE CLEANER EGFR Timed 05/03/2024 4:13 PM LINE CLEANER MAGNESIUM Timed 05/03/2024 4:13 PM LINE CLEANER PHOSPHORUS Timed 05/03/2024 4:13 PM LINE CLEANER BASIC METABOLIC PANEL Timed 05/03/2024 4:13 PM LINE CLEANER POCT GLUCOSE DEVICE Routine 05/03/2024 3 :57 PM LINE CLEANER TRANSFUSE RED BLOOD CELLS Timed 05/03/2024 3:00 PM LINE CLEANER PREPARE RBC Timed 05/03/2024 1:35 PM LINE CLEANER DIFFERENTIAL AUTO STAT 05/03/2024 12: 51 PM LINE CLEANER CBC WITH AUTO DIFFERENTIAL STAT 05/03/2024 12:51 PM LINE CLEANER POTASSIUM LEVEL Timed 05/03/2024 12:51 PM LINE CLEANER POCT GLUCOSE DEVICE Routine 05/03/2024 1 1:38 AM LINE CLEANER US VEIN DUPLEX UPPER EXTREMITY BILATERAL COMPLETE ED Urgent/IP Urgent 05/03/2024 11:31 AM LINE CLEANER TRANSTHORACIC ECHO (TTE) COMPLETE W DOPPLER/CF W CONTRAST ED Urgent/IP Urgent 05/03/2024 10:20 AM LINE CLEANER POCT GLUCOSE DEVICE Routine 05/03/2024 9 :53 AM LINE CLEANER POCT GLUCOSE DEVICE Routine 05/03/2024 9 :01 AM LINE CLEANER CBC WITH AUTO DIFFERENTIAL Routine 05/03/2024 8:29 AM LINE CLEANER DIFFERENTIAL AUTO Routine 05/03/2024 8:2 9 AM LINE CLEANER CRITICAL RESULT CALLBACK CHEMISTRY Timed 05/03/2024 8:29 AM LINE CLEANER EGFR Timed 05/03/2024 8:29 AM LINE CLEANER LACTATE DEHYDROGENASE Timed 05/03/2024 8:29 AM LINE CLEANER MAGNESIUM Timed 05/03/2024 8:29 AM LINE CLEANER PHOSPHORUS Timed 05/03/2024 8:29 AM LINE CLEANER BASIC METABOLIC PANEL Timed 05/03/2024 8:29 AM LINE CLEANER RETICULOCYTES Routine 05/03/2024 8:29 AM LINE CLEANER POCT GLUCOSE DEVICE Routine 05/03/2024 8 :21 AM LINE CLEANER CHLORIDE, URINE, RANDOM STAT 05/03/2024 5:15 AM LINE CLEANER POTASSIUM, URINE, RANDOM STAT 05/03/2024 5:15 AM LINE CLEANER SODIUM, URINE, RANDOM STAT 05/03/2024 5:15 AM LINE CLEANER PROTEIN / CREATININE RATIO, URINE, RANDOM Routine 05/03/2024 5:15 AM LINE CLEANER TRANSFUSE RED BLOOD CELLS Timed 05/03/2024 4:45 AM LINE CLEANER US KIDNEY COMPLETE ED Urgent/IP Urgent 05/03/2024 4:05 AM LINE CLEANER XR CHEST 1 VIEW Critical/Life-T hreatening 05/03/2024 3:47 AM LINE CLEANER CRITICAL RESULT CALLBACK CHEMISTRY Timed 05/03/2024 3:22 AM LINE CLEANER HAPTOGLOBIN Timed 05/03/2024 3:22 AM LINE CLEANER CRITICAL RESULT CALLBACK CHEMISTRY Routine 05/03/2024 3:22 AM LINE CLEANER DIFFERENTIAL AUTO Timed 05/03/2024 3:2 2 AM LINE CLEANER BLOOD GAS, VENOUS Routine 05/03/2024 3:2 2 AM LINE CLEANER LACTATE, WHOLE BLOOD Routine 05/03/2024 3:22 AM LINE CLEANER POTASSIUM, WHOLE BLOOD Routine 05/03/2024 3:22 AM LINE CLEANER CBC WITH AUTO DIFFERENTIAL Timed 05/03/2024 3:22 AM LINE CLEANER TYPE AND SCREEN Timed 05/03/2024 3:22 AM LINE CLEANER POTASSIUM LEVEL Timed 05/03/2024 3:22 AM LINE CLEANER POC BLOOD GAS AND CHEMISTRIES, ARTERIAL Routine 05/03/2024 2:45 AM LINE CLEANER PTH Routine 05/03/2024 2:36 AM LINE CLEANER HEMOGLOBIN A1C Routine 05/03/2024 2:36 AM LINE CLEANER TROPONIN I HIGH-SENSITIVITY 2-HOUR Timed 05/03/2024 2:36 AM LINE CLEANER HEPATITIS C ANTIBODY Routine 05/03/2024 2:36 AM LINE CLEANER HIV 1/2 ANTIBODY PLUS P24 ANTIGEN Routine 05/03/2024 2:36 AM LINE CLEANER HEPATITIS B SURFACE ANTIBODY (IMMUNE STATUS) Routine 05/03/2024 2:36 AM LINE CLEANER HEPATITIS B SURFACE ANTIGEN Routine 05/03/2024 2:36 AM LINE CLEANER INFECTION PREVENTION MRSA ONLY (STAPHYLOCOCCUS AUREUS) CULTURE Routine 05/03/2024 2:36 AM LINE CLEANER FOLATE STAT 05/03/2024 2:33 AM LINE CLEANER VITAMIN B12 STAT 05/03/2024 2:33 AM LINE CLEANER EGFR STAT 05/03/2024 2:33 AM LINE CLEANER CRITICAL RESULT CALLBACK CHEMISTRY STAT 05/03/2024 2:33 AM LINE CLEANER VITAMIN D 25 HYDROXY Routine 05/03/2024 2:33 AM LINE CLEANER CHOLESTEROL, LDL, DIRECT Routine 05/03/2024 2:33 AM LINE CLEANER PRO B-TYPE NATRIURETIC PEPTIDE STAT 05/03/2024 2:33 AM LINE CLEANER CREATINE KINASE (CK), TOTAL STAT 05/03/2024 2:33 AM LINE CLEANER CALCIUM, IONIZED STAT 05/03/2024 2:33 AM LINE CLEANER PHOSPHORUS STAT 05/03/2024 2:33 AM LINE CLEANER MAGNESIUM STAT 05/03/2024 2:33 AM LINE CLEANER COMPREHENSIVE METABOLIC PANEL STAT 05/03/2024 2:33 AM LINE CLEANER POCT GLUCOSE DEVICE Routine 05/03/2024 2 :30 AM LINE CLEANER ECG 12-LEAD STAT 05/03/2024 2:27 AM LINE CLEANER PREPARE RBC Timed 05/03/2024 2:17 AM LINE CLEANER POCT GLUCOSE DEVICE Routine 05/03/2024 1 :47 AM LINE CLEANER ECG 12-LEAD STAT 05/03/2024 1:42 AM LINE CLEANER CRITICAL RESULT CALLBACK CHEMISTRY Timed 05/03/2024 1:38 AM LINE CLEANER POTASSIUM LEVEL Timed 05/03/2024 1:38 AM LINE CLEANER TROPONIN I HIGH-SENSITIVITY 4-HOUR Timed 05/03/2024 1:38 AM LINE CLEANER CRITICAL RESULT CALLBACK CHEMISTRY Timed 05/03/2024 12:39 AM LINE CLEANER PROTIME-INR STAT 05/03/2024 12:39 AM LINE CLEANER APTT STAT 05/03/2024 12:39 AM LINE CLEANER POTASSIUM LEVEL Timed 05/03/2024 12:39 AM LINE CLEANER SC INSJ NON-TUNNELED CENTRAL VENOUS CATH AGE 5 YR/> Routine 05/03/2024 12:26 AM LINE CLEANER POCT CREATININE - DEVICE Routine 05/02/2024 11:37 PM LINE CLEANER POCT GLUCOSE DEVICE Routine 05/02/2024 1 1:33 PM LINE CLEANER POCT GLUCOSE DEVICE Routine 05/02/2024 1 1:29 PM LINE CLEANER XR CHEST 1 VIEW ED 05/02/2024 11:25 PM LINE CLEANER SC CRITICAL CARE ILL/INJURED PATIENT INIT 30-74 MIN Routine 05/02/2024 11:11 PM LINE CLEANER CRITICAL RESULT CALLBACK CHEMISTRY STAT 05/02/2024 10:38 PM LINE CLEANER B CHECK SAMPLE STAT 05/02/2024 10:38 PM LINE CLEANER POTASSIUM, WHOLE BLOOD STAT 05/02/2024 10:38 PM LINE CLEANER CRITICAL RESULT CALLBACK CHEMISTRY STAT 05/02/2024 10:23 PM LINE CLEANER POTASSIUM, WHOLE BLOOD STAT 05/02/2024 10:23 PM LINE CLEANER HEMODIALYSIS Routine 05/02/2024 10:05 PM LINE CLEANER POCT GLUCOSE DEVICE Routine 05/02/2024 9 :49 PM LINE CLEANER BLOOD CULTURE STAT 05/02/2024 9:46 PM LINE CLEANER BLOOD CULTURE STAT 05/02/2024 9:46 PM LINE CLEANER ECG 12-LEAD STAT 05/02/2024 9:18 PM LINE CLEANER CRITICAL RESULT CALLBACK CHEMISTRY Timed 05/02/2024 9:15 PM LINE CLEANER THYROID FUNCTION CASCADE Timed 05/02/2024 9:15 PM LINE CLEANER CRITICAL RESULT CALLBACK CHEMISTRY STAT 05/02/2024 9:15 PM LINE CLEANER TROPONIN I HIGH-SENSITIVITY SERIES (BASELINE, 2HR, 4HR, 6HR) STAT 05/02/2024 9:15 PM LINE CLEANER BLOOD GAS, VENOUS STAT 05/02/2024 9:1 5 PM LINE CLEANER POTASSIUM LEVEL Timed 05/02/2024 9:15 PM LINE CLEANER TYPE AND SCREEN STAT 05/02/2024 9:15 PM LINE CLEANER IRON PROFILE W/ IBC STAT 05/02/2024 8 :01 PM LINE CLEANER FERRITIN STAT 05/02/2024 8:01 PM LINE CLEANER EGFR STAT 05/02/2024 8:01 PM LINE CLEANER CRITICAL RESULT CALLBACK CHEMISTRY STAT 05/02/2024 8:01 PM LINE CLEANER DIFFERENTIAL AUTO STAT 05/02/2024 8:0 1 PM LINE CLEANER MAGNESIUM Routine 05/02/2024 8:01 PM LINE CLEANER COMPREHENSIVE METABOLIC PANEL STAT 05/02/2024 8:01 PM LINE CLEANER CBC WITH AUTO DIFFERENTIAL STAT 05/02/2024 8:01 PM LINE CLEANER from Last 3 Months Allergies Active Allergy [...] (08/13/2019): Added automatically from request for surgery [id number] Left nephrolithiasis 08/11/2019 Overview (08/11/2019): Added automatically from request for surgery [id number] Social History Tobacco Use Types Packs/Day Years [...] on file Legal Sex Female 7:24 PM LINE CLEANER Gender Identity Not on file Sexual Orientation Not on file Last Filed Vital Signs Vital Sign Reading Time Taken Comments Blood Pressure 87/44 07/18/2024 2:05 PM CDT Pulse 94 07/18/2024 2:05 PM CDT Temperature 36.4 C (97.6 F) 07/18/2024 2:05 PM CDT Respiratory Rate 18 05/13/2024 6:30 PM LINE CLEANER Oxygen Saturation 100% 05/13/2024 9:24 AM LINE CLEANER Inhaled Oxygen Concentration - - Weight 56.2 kg (124 lb) 07/18/2024 2:05 PM CDT Height 152.4 cm (5') 07/18/2024 2:05 PM CDT Body Mass Index 24.22 07/18/2024 2:05 PM CDT Results * POCUS Duplex Bilateral Vessel Mapping For HD Access (07/18/2024 2:08 PM CDT) Narrative [email or web address] - 07/18/2024 2:08 PM CDT This procedure was performed and interpreted by the provider. Please refer to the provider's procedure/OR operative note for results. us Carmelo Brown MD PhD POCUS ORDERABLES Final Re sult Performing Organization Address [facility] Co de Phone Number [email or web address] * POCT glucose (05/13/2024 6:09 PM LINE CLEANER) Glucose, POC 99 70 - 199 mg/dL Blood 05/13/2024 6:09 PM LINE CLEANER 05/13/2024 6:09 PM LINE CLEANER Pebbles Hutton MD LAB POCT ORDERABLES - DEV ICE Final Result Performing Organization Address [facility] Co de Phone Number [facility] Department [place] [address] * POCT glucose (05/13/2024 11:01 AM LINE CLEANER) Glucose, POC 102 70 - 199 mg/dL Blood 05/13/2024 11:0 1 AM LINE CLEANER 05/13/2024 11:01 AM LINE CLEANER Pebbles Hutton MD LAB POCT ORDERABLES - DEV ICE Final Result Performing Organization Address [facility] Co de Phone Number [facility] [place] [address] * POCT glucose (05/13/2024 7:52 AM LINE CLEANER) Glucose, POC 100 70 - 199 mg/dL Blood 05/13/2024 7:52 AM LINE CLEANER 05/13/2024 7:52 AM LINE CLEANER us Pebbles Hutton MD LAB POCT ORDERABLES - DEV ICE [place] [address] * (ABNORMAL) eGFR (05/12/2024 8:57 PM LINE CLEANER) Pathologist [facility] eGFR 12(L) >=60 mL/min/1. 73 m2 Comment: [...] last reviewed 2021. Blood 05/12/2024 8:57 PM LINE CLEANER 05/12/2024 9:32 PM LINE CLEANER us Duyen Malloy MD LAB BLOOD ORDERABLES Final Result [facility] [place] [address] * (ABNORMAL) Differential, auto (05/12/2024 8:57 PM LINE CLEANER) Neutrophil abs 8.2(H) 1.5 - 6.5 K/cumm Imm gran abs 0.2(H) 0.0 - 0.1 K/cumm [facility] Lymphocyte abs 2.3 0.8 - 3.3 K/cumm [facility] Monocyte abs 1.6(H) 0.2 - 0.8 K/cumm [facility] Eosinophil abs 0.1 0.0 - 0.5 K/cumm [facility] Basophil abs 0.1 0.0 - 0.1 K/cumm [facility] Neutrophil pct 65.9 % [facility] Comment: Interpretive Data Percent cell count reference ranges are not reported, since discordance with absolute values may lead to misinterpretation of CBC data. Current Interpretive Data was last revised on 2017. Imm gran pct 1.4 % [facility] Comment: Interpretive Data Percent cell count reference ranges are not reported, since discordance with absolute values may lead to misinterpretation of CBC data. Current Interpretive Data was last revised on 2017. Lymphocyte pct 18.7 % [facility] Comment: Interpretive Data Percent cell count reference ranges are not reported, since discordance with absolute values may lead to misinterpretation of CBC data. Current Interpretive Data was last revised on 2017. Monocyte pct 12.4 % [facility] Comment: Interpretive Data Percent cell count reference ranges are not reported, since discordance with absolute values may lead to misinterpretation of CBC data. Current Interpretive Data was last revised on 2017. Eosinophil pct 1.0 % [facility] Comment: Interpretive Data Percent cell count reference ranges are not reported, since discordance with absolute values may lead to misinterpretation of CBC data. Current Interpretive Data was last revised on 2017. Basophil pct 0.6 % [facility] Comment: Interpretive Data Percent cell count reference ranges are not reported, since discordance with absolute values may lead to misinterpretation of CBC data. Current Interpretive Data was last revised on 2017. Blood 05/12/2024 8:57 PM LINE CLEANER 05/12/2024 9:33 PM LINE CLEANER Duyen Malloy MD LAB BLOOD ORDERABLES Final Result Performing Organization Address [facility]/ZIP Co de Phone Number [facility] [place] [address] * (ABNORMAL) CBC with auto differential (05/12/2024 8:57 PM LINE CLEANER) Pathologist [facility] WBC 12.5(H) 3.8 - 9.9 K/cumm Hgb 7.0(L) 11.9 - 15.5 g/dL [facility] Hct 22.0(L) 35.6 - 45.5 % [facility] Plt 140(L) 150 - 400 K/cumm [facility] MPV 9.6 9.1 - 12.3 fL [facility] RBC 2.33(L) 3.90 - 5.20 M/cumm [facility] MCV 94.4 81.3 - 96.4 fL [facility] MCH 30.0 27.1 - 33.3 pg [facility] MCHC 31.8(L) 32.3 - 35.7 g/dL [facility] RDW CV 14.4 11.1 - 14.9 % [facility] RDW SD 48.4(H) 35.7 - 48.1 fL [facility] NRBC abs 0.02(H) 0.00 - 0.01 K/cumm [facility] Blood 05/12/2024 8:57 PM LINE CLEANER 05/12/2024 9:33 PM LINE CLEANER Duyen Malloy MD LAB BLOOD ORDERABLES Final Result [facility] [place] [address] * Type and screen (05/12/2024 8:57 PM LINE CLEANER) ABO Rh O Positive Zackary, indirect Negative [facility] Blood 05/12/2024 8:57 PM LINE CLEANER 05/12/2024 9:39 PM LINE CLEANER Narrative [facility] - 05/12/2024 10:34 PM LINE CLEANER Has the patient had Daratumumab or Isatuximab in the past 6 months?->Unknown Pebbles Hutton MD LAB BLOOD BANK TEST ORDER HAILEY Final Result Performing Organization Address [facility] Co de Phone Number [facility] [place] [address] * Phosphorus (05/12/2024 8:57 PM LINE CLEANER) Pathologist [facility] Phosphorus, pl 3.6 2.3 - 4.5 mg/dL Blood 05/12/2024 8:57 PM LINE CLEANER 05/12/2024 9:32 PM LINE CLEANER Duyen Malloy MD LAB BLOOD ORDERABLES Final Result Performing Organization Address [facility] de Phone Number [facility] [place] [address] * (ABNORMAL) Magnesium (05/12/2024 8:57 PM LINE CLEANER) [facility] Magnesium 2.6(H) 1.4 - 2.5 mg/dL Blood 05/12/2024 8:57 PM LINE CLEANER 05/12/2024 9:32 PM LINE CLEANER Duyen Malloy MD LAB BLOOD ORDERABLES Final Result Performing Organization Address [facility] [place] [address] * (ABNORMAL) Basic metabolic panel (05/12/2024 8:57 PM LINE CLEANER) [facility] Sodium 139 135 - 145 mmol/L Potassium, pl 4.4 3.3 - 4.9 mmol/L [facility] Chloride 101 97 - 110 mmol/L [facility] CO2 29 22 - 32 mmol/L [facility] Anion gap 9 2 - 15 mmol/L [facility] BUN 16 6 - 25 mg/dL [facility] Creatinine 4.17(H) 0.60 - 1.10 mg/dL [facility] Glucose 147 70 - 199 mg/dL [facility] Comment: Interpretive Data Fasting glucose >/= 126 [...] 2022. Calcium 9.1 8.5 - 10.3 mg/dL [facility] Blood 05/12/2024 8:57 PM LINE CLEANER 05/12/2024 9:32 PM LINE CLEANER us Duyen Malloy MD LAB BLOOD ORDERABLES Final Result [facility] [email or web address] [address] * POCT glucose (05/12/2024 7:41 PM LINE CLEANER) Glucose, POC 145 70 - 199 mg/dL Blood 05/12/2024 7:41 PM LINE CLEANER 05/12/2024 7:41 PM LINE CLEANER Pebbles Hutton MD LAB POCT ORDERABLES - DEV ICE Final Result [facility] [email or web address] [address] * POCT glucose (05/12/2024 5:39 PM LINE CLEANER) Glucose, POC 107 70 - 199 mg/dL Blood 05/12/2024 5:39 PM LINE CLEANER 05/12/2024 5:39 PM LINE CLEANER Pebbles Hutton MD LAB POCT ORDERABLES - DEV ICE Final Result Performing Organization Address [facility]/[place] [address] * POCT glucose (05/12/2024 12:10 PM LINE CLEANER) Glucose, POC 107 70 - 199 mg/dL Blood 05/12/2024 12:1 0 PM LINE CLEANER 05/12/2024 12:10 PM LINE CLEANER Pebbles Hutton MD LAB POCT ORDERABLES - DEV ICE Final Result Performing Organization Address [facility]/[place] [address] * POCT glucose (05/12/2024 8:30 AM LINE CLEANER) Glucose, POC 88 70 - 199 mg/dL Blood 05/12/2024 8:30 AM LINE CLEANER 05/12/2024 8:30 AM LINE CLEANER Pebbles Hutton MD LAB POCT ORDERABLES - DEV ICE Final Result Performing Organization Address [facility]/[place] [address] * (ABNORMAL) Differential, auto (05/11/2024 10:31 PM LINE CLEANER) Neutrophil abs 7.8(H) 1.5 - 6.5 K/cumm Imm gran abs 0.2(H) 0.0 - 0.1 K/cumm [facility] Lymphocyte abs 3.0 0.8 - 3.3 K/cumm [facility] Monocyte abs 2.0(H) 0.2 - 0.8 K/cumm [facility] Eosinophil abs 0.2 0.0 - 0.5 K/cumm [facility] Basophil abs 0.1 0.0 - 0.1 K/cumm [facility] Neutrophil pct 58.9 % [facility] Comment: Interpretive Data Percent cell count reference ranges are not reported, since discordance with absolute values may lead to misinterpretation of CBC data. Current Interpretive Data was last revised on 2017. Imm gran pct 1.4 % [facility] Comment: Interpretive Data Percent cell count reference ranges are not reported, since discordance with absolute values may lead to misinterpretation of CBC data. Current Interpretive Data was last revised on 2017. Lymphocyte pct 22.4 % [facility] Comment: Interpretive Data Percent cell count reference ranges are not reported, since discordance with absolute values may lead to misinterpretation of CBC data. Current Interpretive Data was last revised on 2017. Monocyte pct 15.4 % [facility] Comment: Interpretive Data Percent cell count reference ranges are not reported, since discordance with absolute values may lead to misinterpretation of CBC data. Current Interpretive Data was last revised on 2017. Eosinophil pct 1.4 % [facility] Comment: Interpretive Data Percent cell count reference ranges are not reported, since discordance with absolute values may lead to misinterpretation of CBC data. Current Interpretive Data was last revised on 2017. Basophil pct 0.5 % [facility] Comment: Interpretive Data Percent cell count reference ranges are not reported, since discordance with absolute values may lead to misinterpretation of CBC data. Current Interpretive Data was last revised on 2017. Blood 05/11/2024 10:3 1 PM LINE CLEANER 05/11/2024 11:44 PM LINE CLEANER us Ovi Albarran MD LAB BLOOD ORDERABLES Final Re sult [facility] Department [place] [address] * (ABNORMAL) CBC with auto differential (05/11/2024 10:31 PM LINE CLEANER) WBC 13.2(H) 3.8 - 9.9 K/cumm Hgb 7.0(L) 11.9 - 15.5 g/dL [facility] Hct 21.1(L) 35.6 - 45.5 % [facility] Plt 148(L) 150 - 400 K/cumm [facility] MPV 9.8 9.1 - 12.3 fL [facility] RBC 2.30(L) 3.90 - 5.20 M/cumm [facility] MCV 91.7 81.3 - 96.4 fL [facility] MCH 30.4 27.1 - 33.3 pg [facility] MCHC 33.2 32.3 - 35.7 g/dL [facility] RDW CV 14.2 11.1 - 14.9 % [facility] RDW SD 46.5 35.7 - 48.1 fL [facility] NRBC abs 0.02(H) 0.00 - 0.01 K/cumm [facility] Blood 05/11/2024 10:3 1 PM LINE CLEANER 05/11/2024 11:44 PM LINE CLEANER us Ovi Albarran MD LAB BLOOD ORDERABLES Final Re sult [facility] Department [place] [address] * (ABNORMAL) eGFR (05/11/2024 8:42 PM LINE CLEANER) [facility] eGFR 23(L) >=60 mL/min/1. 73 m2 Comment: [...] last reviewed 2021. Blood 05/11/2024 8:42 PM LINE CLEANER 05/11/2024 9:11 PM LINE CLEANER Duyen Malloy MD LAB BLOOD ORDERABLES Final Result Performing Organization Address [facility] Co de Phone Number [facility] [email or web address] [address] * (ABNORMAL) Phosphorus (05/11/2024 8:42 PM LINE CLEANER) Pathologist [facility] Phosphorus, pl 2.1(L) 2.3 - 4.5 mg/dL Blood 05/11/2024 8:42 PM LINE CLEANER 05/11/2024 9:11 PM LINE CLEANER Duyen Malloy MD LAB BLOOD ORDERABLES Final Result Performing Organization Address [facility] de Phone Number [facility] Department [place] [address] * Magnesium (05/11/2024 8:42 PM LINE CLEANER) Pathologist [facility] Magnesium 2.2 1.4 - 2.5 mg/dL Blood 05/11/2024 8:42 PM LINE CLEANER 05/11/2024 9:11 PM LINE CLEANER Duyen Malloy MD LAB BLOOD ORDERABLES Final Result Performing Organization Address [facility] Co de Phone Number [facility] [place] [address] * (ABNORMAL) Basic metabolic panel (05/11/2024 8:42 PM LINE CLEANER) Pathologist [facility] Sodium 139 135 - 145 mmol/L Potassium, pl 3.6 3.3 - 4.9 mmol/L [facility] Chloride 99 97 - 110 mmol/L [facility] CO2 32 22 - 32 mmol/L [facility] Anion gap 8 2 - 15 mmol/L [facility] BUN 6 6 - 25 mg/dL [facility] Creatinine 2.36(H) 0.60 - 1.10 mg/dL [facility] Glucose 123 70 - 199 mg/dL [facility] Comment: Interpretive Data Fasting glucose >/= 126 [...] 2022. Calcium 8.9 8.5 - 10.3 mg/dL [facility] Blood 05/11/2024 8:42 PM LINE CLEANER 05/11/2024 9:11 PM LINE CLEANER Duyen Malloy MD LAB BLOOD ORDERABLES Final Result Performing Organization Address City/[facility]/ZIP Co de Phone Number [facility] Department [email or web address] [address] * POCT glucose (05/11/2024 7:41 PM LINE CLEANER) [facility] Glucose, POC 121 70 - 199 mg/dL Blood 05/11/2024 7:41 PM LINE CLEANER 05/11/2024 7:41 PM LINE CLEANER Pebbles Hutton MD LAB POCT ORDERABLES - DEV ICE Final Result Performing Organization Address [facility]/ZIP Co de Phone Number [facility] Department [email or web address] [address] * POCT glucose (05/11/2024 4:38 PM LINE CLEANER) Glucose, POC 120 70 - 199 mg/dL Blood 05/11/2024 4:38 PM LINE CLEANER 05/11/2024 4:38 PM LINE CLEANER Pebbles Hutton MD LAB POCT ORDERABLES - DEV ICE Final Result Performing Organization Address [facility] Co de Phone Number [facility] [email or web address] [address] * POCT glucose (05/11/2024 11:45 AM LINE CLEANER) Glucose, POC 81 70 - 199 mg/dL Blood 05/11/2024 11:4 5 AM LINE CLEANER 05/11/2024 11:45 AM LINE CLEANER Pebbles Hutton MD LAB POCT ORDERABLES - DEV ICE Final Result Performing Organization Address [facility] de Phone Number [facility] [email or web address] [address] * POCT glucose (05/11/2024 9:19 AM LINE CLEANER) Glucose, POC 95 70 - 199 mg/dL Blood 05/11/2024 9:19 AM LINE CLEANER 05/11/2024 9:19 AM LINE CLEANER Pebbles Hutton MD LAB POCT ORDERABLES - DEV ICE Final Result Performing Organization Address [facility] Co de Phone Number [facility] [email or web address] [address] * (ABNORMAL) eGFR (05/10/2024 9:54 PM LINE CLEANER) eGFR 13(L) >=60 mL/min/1. 73 m2 Comment: [...] last reviewed 2021. Blood 05/10/2024 9:54 PM LINE CLEANER 05/10/2024 10:32 PM LINE CLEANER Duyen Malloy MD LAB BLOOD ORDERABLES Final Result [facility] Department [place] [address] * (ABNORMAL) Differential, auto (05/10/2024 9:54 PM LINE CLEANER) Neutrophil abs 11.3(H) 1.5 - 6.5 K/cumm Imm gran abs 0.3(H) 0.0 - 0.1 K/cumm [facility] Lymphocyte abs 2.8 0.8 - 3.3 K/cumm [facility] Monocyte abs 2.0(H) 0.2 - 0.8 K/cumm [facility] Eosinophil abs 0.2 0.0 - 0.5 K/cumm [facility] Basophil abs 0.1 0.0 - 0.1 K/cumm [facility] Neutrophil pct 67.4 % [facility] Comment: Interpretive Data Percent cell count reference ranges are not reported, since discordance with absolute values may lead to misinterpretation of CBC data. Current Interpretive Data was last revised on 2017. Imm gran pct 1.9 % [facility] Comment: Interpretive Data Percent cell count reference ranges are not reported, since discordance with absolute values may lead to misinterpretation of CBC data. Current Interpretive Data was last revised on 2017. Lymphocyte pct 16.7 % [facility] Comment: Interpretive Data Percent cell count reference ranges are not reported, since discordance with absolute values may lead to misinterpretation of CBC data. Current Interpretive Data was last revised on 2017. Monocyte pct 12.2 % [facility] Comment: Interpretive Data Percent cell count reference ranges are not reported, since discordance with absolute values may lead to misinterpretation of CBC data. Current Interpretive Data was last revised on 2017. Eosinophil pct 1.3 % [facility] Comment: Interpretive Data Percent cell count reference ranges are not reported, since discordance with absolute values may lead to misinterpretation of CBC data. Current Interpretive Data was last revised on 2017. Basophil pct 0.5 % [facility] Comment: Interpretive Data Percent cell count reference ranges are not reported, since discordance with absolute values may lead to misinterpretation of CBC data. Current Interpretive Data was last revised on 2017. Blood 05/10/2024 9:54 PM LINE CLEANER 05/10/2024 10:32 PM LINE CLEANER Duyen Malloy MD LAB BLOOD ORDERABLES Final Result [facility] Department [place] [address] * (ABNORMAL) CBC with auto differential (05/10/2024 9:54 PM LINE CLEANER) WBC 16.7(H) 3.8 - 9.9 K/cumm Hgb 7.4(L) 11.9 - 15.5 g/dL [facility] Hct 22.9(L) 35.6 - 45.5 % [facility] Plt 214 150 - 400 K/cumm [facility] MPV 9.5 9.1 - 12.3 fL [facility] RBC 2.50(L) 3.90 - 5.20 M/cumm [facility] MCV 91.6 81.3 - 96.4 fL [facility] MCH 29.6 27.1 - 33.3 pg [facility] MCHC 32.3 32.3 - 35.7 g/dL [facility] RDW CV 14.0 11.1 - 14.9 % [facility] RDW SD 46.5 35.7 - 48.1 fL [facility] NRBC abs 0.02(H) 0.00 - 0.01 K/cumm [facility] Blood 05/10/2024 9:54 PM LINE CLEANER 05/10/2024 10:32 PM LINE CLEANER Duyen Malloy MD LAB BLOOD ORDERABLES Final Result Performing Organization Address [facility] Co de Phone Number [facility] [place] [address] * Phosphorus (05/10/2024 9:54 PM LINE CLEANER) Phosphorus, pl 4.0 2.3 - 4.5 mg/dL Blood 05/10/2024 9:54 PM LINE CLEANER 05/10/2024 10:32 PM LINE CLEANER Duyen Malloy MD LAB BLOOD ORDERABLES Final Result Performing Organization Address [facility] Co de Phone Number [facility] Department [place] [address] * Magnesium (05/10/2024 9:54 PM LINE CLEANER) Magnesium 2.5 1.4 - 2.5 mg/dL Blood 05/10/2024 9:54 PM LINE CLEANER 05/10/2024 10:32 PM LINE CLEANER Duyen Malloy MD LAB BLOOD ORDERABLES Final Result Performing Organization Address [facility] Co de Phone Number [facility] Department [place] [address] * (ABNORMAL) Basic metabolic panel (05/10/2024 9:54 PM LINE CLEANER) Sodium 137 135 - 145 mmol/L Potassium, pl 4.1 3.3 - 4.9 mmol/L [facility] Chloride 100 97 - 110 mmol/L [facility] CO2 28 22 - 32 mmol/L [facility] Anion gap 9 2 - 15 mmol/L [facility] BUN 15 6 - 25 mg/dL [facility] Creatinine 3.76(H) 0.60 - 1.10 mg/dL [facility] Comment:Repeated and Verifie d Glucose 83 70 - 199 mg/dL [facility] Comment: Interpretive Data Fasting glucose >/= 126 [...] 2022. Calcium 9.1 8.5 - 10.3 mg/dL [facility] Blood 05/10/2024 9:54 PM LINE CLEANER 05/10/2024 10:32 PM LINE CLEANER us Duyen Malloy MD LAB BLOOD ORDERABLES Final Result [facility] Department [place] [address] * POCT glucose (05/10/2024 8:10 PM LINE CLEANER) Glucose, POC 108 70 - 199 mg/dL Blood 05/10/2024 8:10 PM LINE CLEANER 05/10/2024 8:10 PM LINE CLEANER Pebbles Hutton MD LAB POCT ORDERABLES - DEV ICE Final Result [facility] Department [place] [address] * POCT glucose (05/10/2024 11:35 AM LINE CLEANER) Glucose, POC 81 70 - 199 mg/dL Blood 05/10/2024 11:3 5 AM LINE CLEANER 05/10/2024 11:35 AM LINE CLEANER us Pebbles Hutton MD LAB POCT ORDERABLES - DEV ICE Final Result Performing Organization Address [facility] Co de Phone Number [facility] Per[facility] [place] [address] * IR Tunneled Line Placement > 5 Years (05/10/2024 10:09 AM LINE CLEANER) Anatomical Region Laterality Modality Body N/A X-Ray Angiograph y 05/10/2024 3:26 PM LINE CLEANER Impressions 05/10/2024 5:45 PM LINE CLEANER 1. Removal of previously placed right internal jugular vein approach non-tunneled central venous (Trialysis) catheter. 2. Successful tunneled 19 cm tip to cuff tunneled dialysis catheter placement via the right internal jugular vein. PLAN: The catheter is ready for immediate use. When treatment is completed, removal can be scheduled by calling [facility] - [phone] [facility] - [phone] Dictated by: Sylwia Jha MD The radiology attending physician has personally reviewed this study, and had reviewed and/or edited this written report and agrees with it. Electronically signed by: Palomo Guzmán M.D. Narrative 05/10/2024 5:45 PM LINE CLEANER EXAMINATION: TUNNELED CENTRAL VENOUS CATHETER PLACEMENT USING [...] was obtained. Prior to beginning the procedure, [place] Protocol was used to confirm the patient's [...] was obtained. Prior to beginning the procedure, [place] Protocol was used to confirm the patient's [...] completed, removal can be scheduled by calling [facility] - [phone] [facility] - [phone] Dictated by: Sylwia Jha MD The radiology attending physician has personally reviewed this study, and had reviewed and/or edited this written report and agrees with it. Electronically signed by: Palomo Guzmán M.D. Pebbles Hutton MD IMG IR PROCEDURES Final R esult * POCT glucose (05/10/2024 7:20 AM LINE CLEANER) Glucose, POC 78 70 - 199 mg/dL Blood 05/10/2024 7:20 AM LINE CLEANER 05/10/2024 7:20 AM LINE CLEANER Pebbles Hutton MD LAB POCT ORDERABLES - DEV ICE Final Result Performing Organization Address [facility] Co de Phone Number [facility] Department [place] [address] * POCT glucose (05/10/2024 4:03 AM LINE CLEANER) Glucose, POC 86 70 - 199 mg/dL Blood 05/10/2024 4:03 AM LINE CLEANER 05/10/2024 4:03 AM LINE CLEANER Pebbles Hutton MD LAB POCT ORDERABLES - DEV ICE Final Result Performing Organization Address [facility] de Phone Number [facility] Department [place] [address] * (ABNORMAL) eGFR (05/09/2024 9:55 PM LINE CLEANER) eGFR 37(L) >=60 mL/min/1. 73 m2 Comment: [...] last reviewed 2021. Blood 05/09/2024 9:55 PM LINE CLEANER 05/09/2024 10:35 PM LINE CLEANER us Duyen Malloy MD LAB BLOOD ORDERABLES Final Result [facility] Department [place] [address] * (ABNORMAL) Differential, auto (05/09/2024 9:55 PM LINE CLEANER) Neutrophil abs 13.0(H) 1.5 - 6.5 K/cumm Imm gran abs 0.4(H) 0.0 - 0.1 K/cumm [facility] Lymphocyte abs 2.4 0.8 - 3.3 K/cumm [facility] Monocyte abs 2.0(H) 0.2 - 0.8 K/cumm [facility] Eosinophil abs 0.3 0.0 - 0.5 K/cumm [facility] Basophil abs 0.1 0.0 - 0.1 K/cumm [facility] Neutrophil pct 71.7 % [facility] Comment: Interpretive Data Percent cell count reference ranges are not reported, since discordance with absolute values may lead to misinterpretation of CBC data. Current Interpretive Data was last revised on 2017. Imm gran pct 2.2 % [facility] Comment: Interpretive Data Percent cell count reference ranges are not reported, since discordance with absolute values may lead to misinterpretation of CBC data. Current Interpretive Data was last revised on 2017. Lymphocyte pct 13.2 % [facility] Comment: Interpretive Data Percent cell count reference ranges are not reported, since discordance with absolute values may lead to misinterpretation of CBC data. Current Interpretive Data was last revised on 2017. Monocyte pct 11.1 % [facility] Comment: Interpretive Data Percent cell count reference ranges are not reported, since discordance with absolute values may lead to misinterpretation of CBC data. Current Interpretive Data was last revised on 2017. Eosinophil pct 1.4 % [facility] Comment: Interpretive Data Percent cell count reference ranges are not reported, since discordance with absolute values may lead to misinterpretation of CBC data. Current Interpretive Data was last revised on 2017. Basophil pct 0.4 % [facility] Comment: Interpretive Data Percent cell count reference ranges are not reported, since discordance with absolute values may lead to misinterpretation of CBC data. Current Interpretive Data was last revised on 2017. Blood 05/09/2024 9:5 5 PM LINE CLEANER 05/09/2024 10:35 PM LINE CLEANER Duyen Malloy MD LAB BLOOD ORDERABLES Final Result [facility] Department [place] [address] * (ABNORMAL) CBC with auto differential (05/09/2024 9:55 PM LINE CLEANER) WBC 18.1(H) 3.8 - 9.9 K/cumm Hgb 7.4(L) 11.9 - 15.5 g/dL [facility] Hct 22.6(L) 35.6 - 45.5 % [facility] Plt 195 150 - 400 K/cumm [facility] MPV 10.0 9.1 - 12.3 fL [facility] RBC 2.47(L) 3.90 - 5.20 M/cumm [facility] MCV 91.5 81.3 - 96.4 fL [facility] MCH 30.0 27.1 - 33.3 pg [facility] MCHC 32.7 32.3 - 35.7 g/dL [facility] RDW CV 13.7 11.1 - 14.9 % [facility] RDW SD 46.1 35.7 - 48.1 fL [facility] NRBC abs 0.02(H) 0.00 - 0.01 K/cumm [facility] Blood 05/09/2024 9:55 PM LINE CLEANER 05/09/2024 10:35 PM LINE CLEANER Duyen Malloy MD LAB BLOOD ORDERABLES Final Result Performing Organization Address [facility] Co de Phone Number [facility] [place] [address] * (ABNORMAL) Phosphorus (05/09/2024 9:55 PM LINE CLEANER) [facility] Phosphorus, pl 2.2(L) 2.3 - 4.5 mg/dL Blood 05/09/2024 9:55 PM LINE CLEANER 05/09/2024 10:35 PM LINE CLEANER Duyen Malloy MD LAB BLOOD ORDERABLES Final Result Performing Organization Address [facility] Co de Phone Number [facility] [place] [address] * Magnesium (05/09/2024 9:55 PM LINE CLEANER) [facility] Magnesium 2.2 1.4 - 2.5 mg/dL Blood 05/09/2024 9:55 PM LINE CLEANER 05/09/2024 10:35 PM LINE CLEANER Duyen Malloy MD LAB BLOOD ORDERABLES Final Result Performing Organization Address [facility] [place] [address] * (ABNORMAL) Basic metabolic panel (05/09/2024 9:55 PM LINE CLEANER) [facility] Sodium 137 135 - 145 mmol/L Potassium, pl 3.8 3.3 - 4.9 mmol/L [facility] Chloride 100 97 - 110 mmol/L [facility] CO2 30 22 - 32 mmol/L [facility] Anion gap 7 2 - 15 mmol/L [facility] BUN 5(L) 6 - 25 mg/dL [facility] Creatinine 1.61(H) 0.60 - 1.10 mg/dL [facility] Glucose 105 70 - 199 mg/dL [facility] Comment: Interpretive Data Fasting glucose >/= 126 [...] 2022. Calcium 8.8 8.5 - 10.3 mg/dL [facility] Blood 05/09/2024 9:55 PM LINE CLEANER 05/09/2024 10:35 PM LINE CLEANER Duyen Malloy MD LAB BLOOD ORDERABLES Final Result Performing Organization Address City/[facility]/ZIP Co de Phone Number [facility] Department [place] [address] * POCT glucose (05/09/2024 8:07 PM LINE CLEANER) Glucose, POC 124 70 - 199 mg/dL Blood 05/09/2024 8:07 PM LINE CLEANER 05/09/2024 8:07 PM LINE CLEANER Pebbles Hutton MD LAB POCT ORDERABLES - DEV ICE Final Result [facility] [place] [address] * POCT glucose (05/09/2024 5:07 PM LINE CLEANER) Glucose, POC 90 70 - 199 mg/dL Blood 05/09/2024 5:07 PM LINE CLEANER 05/09/2024 5:07 PM LINE CLEANER Pebbles Hutton MD LAB POCT ORDERABLES - DEV ICE Final Result Performing Organization Address [facility] Co [place] [address] * POCT glucose (05/09/2024 12:11 PM LINE CLEANER) Glucose, POC 132 70 - 199 mg/dL Blood 05/09/2024 12:1 1 PM LINE CLEANER 05/09/2024 12:11 PM LINE CLEANER Pebbles Hutton MD LAB POCT ORDERABLES - DEV ICE Final Result Performing Organization Address [facility] Phone Number [place] [address] * US Vein Mapping Duplex Upper Extremity Bilateral (05/09/2024 11:33 AM LINE CLEANER) Anatomical Region Laterality Modality Vascular Bilateral Ultrasound 05/09/2024 10:3 8 AM LINE CLEANER Narrative 05/10/2024 9:36 AM LINE CLEANER [facility] - Department of Vascular Surgery, Vascular Laboratory [address] [place] [id number] Upper Extremity Vein Mapping Report Patient Name: ASHELY CUI L : 1965 (59y 1m) Study Date: 05/09/2024 10:38:28 AM Gender: F Paint Prep Technician: ALDAIR Location: [id number] Ref Provider: PEBBLES HUTTON Quality: Adequate Order Provider: PEBBLES HUTTON PROCEDURES: Mapping Report: Bilateral Upper Extremity [...] Value Units Left Value Units FINDINGS: Performing Paint Prep Technician: Disha Grimme, RDMS, RVT. Bilateral: Venous Doppler signals in [...] Jourdan Szymanski MD FACS 05/10/2024 9:26:35 AM LINE CLEANER Procedure Note Jourdan Szymanski MD - 05/10/2024 [facility] - Department of Vascular Surgery,Vascular Laboratory [address] [place] [id number] Upper Extremity Vein Mapping Report Patient Name: ASHELY CUI L : 1965 (59y 1m) Study Date: 05/09/2024 10:38:28 AM Gender: F Paint Prep Technician: ALDAIR Location: [id number] Ref Provider: PEBBLES HUTTON Quality: Adequate Order Provider: PEBBLES HUTTON PROCEDURES: Mapping Report: Bilateral Upper Extremity [...] Value Units Left Value Units FINDINGS: Performing Paint Prep Technician: Disha Duke RDMS, RVT. Bilateral: Venous Doppler [...] Jourdan Szymanski MD FACS 05/10/2024 9:26:35 AM LINE CLEANER us Pebbles Hutton MD [facility] PROCEDURES Final R esult * POCT glucose (05/09/2024 7:11 AM LINE CLEANER) Glucose, POC 111 70 - 199 mg/dL Blood 05/09/2024 7:11 AM LINE CLEANER 05/09/2024 7:11 AM LINE CLEANER us Duyen Malloy MD LAB POCT ORDERABLES - ARELY CE Final Result [facility] [place] [address] * POCT glucose (05/08/2024 8:19 PM LINE CLEANER) Glucose, POC 128 70 - 199 mg/dL Blood 05/08/2024 8:19 PM LINE CLEANER 05/08/2024 8:19 PM LINE CLEANER Duyen Malloy MD LAB POCT ORDERABLES - ARELY CE Final Result Performing Organization Address City/[facility] Co de Phone Number [facility] [place] [address] * POCT glucose (05/08/2024 5:16 PM LINE CLEANER) Glucose, POC 133 70 - 199 mg/dL Blood 05/08/2024 5:16 PM LINE CLEANER 05/08/2024 5:16 PM LINE CLEANER Duyen Malloy MD LAB POCT ORDERABLES - ARELY CE Final Result Performing Organization Address [facility] Co de Phone Number [facility] [place] [address] * POCT glucose (05/08/2024 11:04 AM LINE CLEANER) Glucose, POC 161 70 - 199 mg/dL Blood 05/08/2024 11:0 4 AM LINE CLEANER 05/08/2024 11:04 AM LINE CLEANER us Duyen Malloy MD LAB POCT ORDERABLES - ARLEY CE Final Result Performing Organization Address [facility] Co de Phone Number [facility] [place] [address] * POCT glucose (05/08/2024 7:29 AM LINE CLEANER) Glucose, POC 94 70 - 199 mg/dL Blood 05/08/2024 7:29 AM LINE CLEANER 05/08/2024 7:29 AM LINE CLEANER Duyen Malloy MD LAB POCT ORDERABLES - ARELY CE Final Result Performing Organization Address [facility] Co de Phone Number [facility] [place] [address] * (ABNORMAL) eGFR (05/08/2024 5:11 AM LINE CLEANER) Pathologist [facility] eGFR 25(L) >=60 mL/min/1. 73 m2 [...] last reviewed 2021. Blood 05/08/2024 5:11 AM LINE CLEANER 05/08/2024 5:19 AM LINE CLEANER us Duyen Malloy MD LAB BLOOD ORDERABLES Final Result [facility] Department [place] [address] * (ABNORMAL) Differential, auto (05/08/2024 5:11 AM LINE CLEANER) Pathologist [facility] Neutrophil abs 11.3(H) 1.5 - 6.5 K/cumm Imm gran abs 0.6(H) 0.0 - 0.1 K/cumm [facility] Lymphocyte abs 2.1 0.8 - 3.3 K/cumm [facility] Monocyte abs 2.3(H) 0.2 - 0.8 K/cumm [facility] Eosinophil abs 0.3 0.0 - 0.5 K/cumm [facility] Basophil abs 0.1 0.0 - 0.1 K/cumm [facility] Neutrophil pct 67.9 % [facility] Comment: Interpretive Data Percent cell count reference ranges are not reported, since discordance with absolute values may lead to misinterpretation of CBC data. Current Interpretive Data was last revised on 2017. Imm gran pct 3.5 % [facility] Comment: Interpretive Data Percent cell count reference ranges are not reported, since discordance with absolute values may lead to misinterpretation of CBC data. Current Interpretive Data was last revised on 2017. Lymphocyte pct 12.5 % [facility] Comment: Interpretive Data Percent cell count reference ranges are not reported, since discordance with absolute values may lead to misinterpretation of CBC data. Current Interpretive Data was last revised on 2017. Monocyte pct 14.1 % [facility] Comment: Interpretive Data Percent cell count reference ranges are not reported, since discordance with absolute values may lead to misinterpretation of CBC data. Current Interpretive Data was last revised on 2017. Eosinophil pct 1.6 % [facility] Comment: Interpretive Data Percent cell count reference ranges are not reported, since discordance with absolute values may lead to misinterpretation of CBC data. Current Interpretive Data was last revised on 2017. Basophil pct 0.4 % [facility] Comment: Interpretive Data Percent cell count reference ranges are not reported, since discordance with absolute values may lead to misinterpretation of CBC data. Current Interpretive Data was last revised on 2017. Blood 05/08/2024 5:11 AM LINE CLEANER 05/08/2024 5:19 AM LINE CLEANER us Duyen Malloy MD LAB BLOOD ORDERABLES Final Result [facility] Department of Laboratories [place], [place] [id number] * (ABNORMAL) CBC with auto differential (05/08/2024 5:11 AM LINE CLEANER) WBC 16.6(H) 3.8 - 9.9 K/cumm Hgb 7.1(L) 11.9 - 15.5 g/dL [facility] Hct 21.7(L) 35.6 - 45.5 % [facility] Plt 194 150 - 400 K/cumm [facility] MPV 9.6 9.1 - 12.3 fL [facility] RBC 2.41(L) 3.90 - 5.20 M/cumm [facility] MCV 90.0 81.3 - 96.4 fL [facility] MCH 29.5 27.1 - 33.3 pg [facility] MCHC 32.7 32.3 - 35.7 g/dL [facility] RDW CV 13.5 11.1 - 14.9 % [facility] RDW SD 44.5 35.7 - 48.1 fL [facility] NRBC abs 0.04(H) 0.00 - 0.01 K/cumm [facility] Blood 05/08/2024 5:11 AM LINE CLEANER 05/08/2024 5:19 AM LINE CLEANER Duyen Malloy MD LAB BLOOD ORDERABLES Final Result [facility] [place] [address] * Phosphorus (05/08/2024 5:11 AM LINE CLEANER) Pathologist [facility] Phosphorus, pl 2.6 2.3 - 4.5 mg/dL Blood 05/08/2024 5:11 AM LINE CLEANER 05/08/2024 5:19 AM LINE CLEANER Duyen Malloy MD LAB BLOOD ORDERABLES Final Result [facility] [place] [address] * Magnesium (05/08/2024 5:11 AM LINE CLEANER) Pathologist [facility] Magnesium 2.3 1.4 - 2.5 mg/dL Blood 05/08/2024 5:11 AM LINE CLEANER 05/08/2024 5:19 AM LINE CLEANER Duyen Malloy MD LAB BLOOD ORDERABLES Final Result [facility] Department [place] [address] * (ABNORMAL) Basic metabolic panel (05/08/2024 5:11 AM LINE CLEANER) Sodium 135 135 - 145 mmol/L Potassium, pl 3.8 3.3 - 4.9 mmol/L [facility] Chloride 100 97 - 110 mmol/L [facility] CO2 30 22 - 32 mmol/L [facility] Anion gap 5 2 - 15 mmol/L [facility] BUN 7 6 - 25 mg/dL [facility] Creatinine 2.26(H) 0.60 - 1.10 mg/dL [facility] Glucose 83 70 - 199 mg/dL [facility] Comment: Interpretive Data Fasting glucose >/= 126 [...] 2022. Calcium 9.2 8.5 - 10.3 mg/dL [facility] Blood 05/08/2024 5:11 AM LINE CLEANER 05/08/2024 5:19 AM LINE CLEANER Duyen Malloy MD LAB BLOOD ORDERABLES Final Result Performing Organization Address City/[facility]/ZIP Co de Phone Number [facility] Department [place] [address] * POCT glucose (05/07/2024 8:37 PM LINE CLEANER) Glucose, POC 129 70 - 199 mg/dL Blood 05/07/2024 8:37 PM LINE CLEANER 05/07/2024 8:37 PM LINE CLEANER Duyen Malloy MD LAB POCT ORDERABLES - ARELY CE Final Result Performing Organization Address [facility] de Phone Number [facility] [place] [address] * POCT glucose (05/07/2024 3:07 PM LINE CLEANER) Glucose, POC 171 70 - 199 mg/dL Blood 05/07/2024 3:07 PM LINE CLEANER 05/07/2024 3:07 PM LINE CLEANER Duyen Malloy MD LAB POCT ORDERABLES - ARELY CE Final Result Performing Organization Address [facility] de Phone Number [facility] [place] [address] * POCT glucose (05/07/2024 11:08 AM LINE CLEANER) Glucose, POC 131 70 - 199 mg/dL Blood 05/07/2024 11:0 8 AM LINE CLEANER 05/07/2024 11:08 AM LINE CLEANER Duyen Malloy MD LAB POCT ORDERABLES - ARELY CE Final Result Performing Organization Address [facility]/[place] [address] * POCT glucose (05/07/2024 7:28 AM LINE CLEANER) Glucose, POC 98 70 - 199 mg/dL Blood 05/07/2024 7:28 AM LINE CLEANER 05/07/2024 7:28 AM LINE CLEANER Duyen Malloy MD LAB POCT ORDERABLES - ARELY CE Final Result Performing Organization Address [facility]/State/ZIP Co de Phone Number [facility] Department [place] [address] * (ABNORMAL) eGFR (05/07/2024 4:14 AM LINE CLEANER) Pathologist [facility] eGFR 17(L) >=60 mL/min/1. 73 m2 [...] last reviewed 2021. Blood 05/07/2024 4:14 AM LINE CLEANER 05/07/2024 4:28 AM LINE CLEANER us Duyen Malloy MD LAB BLOOD ORDERABLES Final Result [facility] Department [place] [address] * (ABNORMAL) Differential, auto (05/07/2024 4:14 AM LINE CLEANER) Pathologist [facility] Neutrophil abs 13.3(H) 1.5 - 6.5 K/cumm Imm gran abs 0.3(H) 0.0 - 0.1 K/cumm [facility] Lymphocyte abs 1.1 0.8 - 3.3 K/cumm [facility] Monocyte abs 1.4(H) 0.2 - 0.8 K/cumm [facility] Eosinophil abs 0.3 0.0 - 0.5 K/cumm [facility] Basophil abs 0.1 0.0 - 0.1 K/cumm [facility] Neutrophil pct 80.7 % [facility] Comment: Interpretive Data Percent cell count reference ranges are not reported, since discordance with absolute values may lead to misinterpretation of CBC data. Current Interpretive Data was last revised on 2017. Imm gran pct 1.9 % [facility] Comment: Interpretive Data Percent cell count reference ranges are not reported, since discordance with absolute values may lead to misinterpretation of CBC data. Current Interpretive Data was last revised on 2017. Lymphocyte pct 6.7 % [facility] Comment: Interpretive Data Percent cell count reference ranges are not reported, since discordance with absolute values may lead to misinterpretation of CBC data. Current Interpretive Data was last revised on 2017. Monocyte pct 8.3 % [facility] Comment: Interpretive Data Percent cell count reference ranges are not reported, since discordance with absolute values may lead to misinterpretation of CBC data. Current Interpretive Data was last revised on 2017. Eosinophil pct 2.0 % [facility] Comment: Interpretive Data Percent cell count reference ranges are not reported, since discordance with absolute values may lead to misinterpretation of CBC data. Current Interpretive Data was last revised on 2017. Basophil pct 0.4 % [facility] Comment: Interpretive Data Percent cell count reference ranges are not reported, since discordance with absolute values may lead to misinterpretation of CBC data. Current Interpretive Data was last revised on 2017. Blood 05/07/2024 4:14 AM LINE CLEANER 05/07/2024 4:28 AM LINE CLEANER us Duyen Malloy MD LAB BLOOD ORDERABLES Final Result [facility] Department [place] [address] * (ABNORMAL) CBC with auto differential (05/07/2024 4:14 AM LINE CLEANER) WBC 16.4(H) 3.8 - 9.9 K/cumm Hgb 7.9(L) 11.9 - 15.5 g/dL [facility] Hct 24.0(L) 35.6 - 45.5 % [facility] Plt 182 150 - 400 K/cumm [facility] MPV 9.6 9.1 - 12.3 fL [facility] RBC 2.70(L) 3.90 - 5.20 M/cumm [facility] MCV 88.9 81.3 - 96.4 fL [facility] MCH 29.3 27.1 - 33.3 pg [facility] MCHC 32.9 32.3 - 35.7 g/dL [facility] RDW CV 13.2 11.1 - 14.9 % [facility] RDW SD 42.6 35.7 - 48.1 fL [facility] NRBC abs 0.00 0.00 - 0.01 K/cumm [facility] Blood 05/07/2024 4:14 AM LINE CLEANER 05/07/2024 4:28 AM LINE CLEANER Duyen Malloy MD LAB BLOOD ORDERABLES Final Result [facility] [place] [address] * Phosphorus (05/07/2024 4:14 AM LINE CLEANER) Phosphorus, pl 2.7 2.3 - 4.5 mg/dL Blood 05/07/2024 4:14 AM LINE CLEANER 05/07/2024 4:28 AM LINE CLEANER Duyen Malloy MD LAB BLOOD ORDERABLES Final Result Performing Organization Address City/[facility] Co de Phone Number [facility] [place] [address] * Magnesium (05/07/2024 4:14 AM LINE CLEANER) Pathologist [facility] Magnesium 2.3 1.4 - 2.5 mg/dL Blood 05/07/2024 4:14 AM LINE CLEANER 05/07/2024 4:28 AM LINE CLEANER Duyen Malloy MD LAB BLOOD ORDERABLES Final Result [facility] Department [place] [address] * (ABNORMAL) Basic metabolic panel (05/07/2024 4:14 AM LINE CLEANER) [facility] Sodium 135 135 - 145 mmol/L Potassium, pl 3.6 3.3 - 4.9 mmol/L [facility] Chloride 102 97 - 110 mmol/L [facility] CO2 29 22 - 32 mmol/L [facility] Anion gap 4 2 - 15 mmol/L [facility] BUN 13 6 - 25 mg/dL [facility] Creatinine 3.03(H) 0.60 - 1.10 mg/dL [facility] Glucose 87 70 - 199 mg/dL [facility] Comment: Interpretive Data Fasting glucose >/= 126 [...] 2022. Calcium 8.6 8.5 - 10.3 mg/dL [facility] Blood 05/07/2024 4:14 AM LINE CLEANER 05/07/2024 4:28 AM LINE CLEANER Duyen Malloy MD LAB BLOOD ORDERABLES Final Result Performing Organization Address [facility]/ZIP Co de Phone Number [facility] [place] [address] * POCT glucose (05/06/2024 7:53 PM LINE CLEANER) Glucose, POC 175 70 - 199 mg/dL Blood 05/06/2024 7:53 PM LINE CLEANER 05/06/2024 7:53 PM LINE CLEANER Duyen Malloy MD LAB POCT ORDERABLES - ARELY CE Final Result Performing Organization Address [facility] [place] [address] * POCT glucose (05/06/2024 5:55 PM LINE CLEANER) Glucose, POC 136 70 - 199 mg/dL Blood 05/06/2024 5:55 PM LINE CLEANER 05/06/2024 5:55 PM LINE CLEANER Duyen Malloy MD LAB POCT ORDERABLES - ARELY CE Final Result Performing Organization Address [facility] Phone Number [facility] [place] [address] * US Vein Duplex Lower Extremity Bilateral Complete (05/06/2024 2:05 PM LINE CLEANER) Anatomical Region Laterality Modality Vascular Bilateral Ultrasound 05/06/2024 12:5 5 PM LINE CLEANER Narrative 05/07/2024 9:00 AM LINE CLEANER [facility] - Department of Vascular Surgery, Vascular Laboratory [address] [place] [address] Lower Extremity Venous Ultrasound Report Patient Name: ASHELY CUI L : 1965 (59y 1m) Study Date: 05/06/2024 12:55:27 PM Gender: F Tech: AL Location: [id number] Ref Provider: DUYEN MALLOY Quality: Adequate Order [...] pain, numbness, c/f DVT - FINDINGS: Performing Paint Prep Technician: Kavitha Ho RVT. Bilateral: Venous Doppler signals [...] Jourdan Szymanski MD FACS 05/07/2024 8:25:59 AM LINE CLEANER Procedure Note Jourdan Szymanski MD - 05/07/2024 [facility] - Department of Vascular Surgery,Vascular Laboratory [address] [place] [address] Lower Extremity Venous Ultrasound Report Patient Name: ASHELY CUI L : 1965 (59y 1m) Study Date: 05/06/2024 12:55:27 PM Gender: F Tech: AL Location: [id number] Ref Provider: DUYEN MALLOY Quality: Adequate Order Provider: DUYEN MALLOY PROCEDURES: Vascular Report: Venous Duplex imaging was performed bilaterally in the lower extremities.The common femoral, femoral, popliteal, posterior tibial, peroneal veins wereevaluated for patency, spontaneity and phasicity with Doppler, compression and augmentationmaneuvers. Great saphenous vein proximal at the junction was evaluated with compressionmaneuvers. INDICATIONS: LE pain, numbness, c/f DVT - FINDINGS: Performing Paint Prep Technician: Kavitha Ho RVT. Bilateral: Venous Doppler signals [...] Jourdan Szymanski MD FACS 05/07/2024 8:25:59 AM LINE CLEANER Duyen Malloy MD IMG US PROCEDURES Final Re sult * POCT glucose (05/06/2024 11:42 AM LINE CLEANER) Glucose, POC 176 70 - 199 mg/dL Blood 05/06/2024 11:4 2 AM LINE CLEANER 05/06/2024 11:42 AM LINE CLEANER Duyen Malloy MD LAB POCT ORDERABLES - ARELY CE Final Result Performing Organization Address [facility]/ZIP Co de Phone Number [facility] Department [place] [address] * POCT glucose (05/06/2024 7:36 AM LINE CLEANER) Glucose, POC 103 70 - 199 mg/dL Blood 05/06/2024 7:36 AM LINE CLEANER 05/06/2024 7:36 AM LINE CLEANER Duyen Malloy MD LAB POCT ORDERABLES - ARELY CE Final Result Performing Organization Address City/[facility]/ZIP Co de Phone Number [facility] Department [place] [address] * (ABNORMAL) eGFR (05/06/2024 4:38 AM LINE CLEANER) eGFR 10(L) >=60 mL/min/1. 73 m2 Comment: [...] last reviewed 2021. Blood 05/06/2024 4:38 AM LINE CLEANER 05/06/2024 4:55 AM LINE CLEANER us Duyen Malloy MD LAB BLOOD ORDERABLES Final Result [facility] Department [place] [address] * (ABNORMAL) Differential, auto (05/06/2024 4:38 AM LINE CLEANER) Neutrophil abs 13.1(H) 1.5 - 6.5 K/cumm Imm gran abs 0.2(H) 0.0 - 0.1 K/cumm [facility] Lymphocyte abs 1.8 0.8 - 3.3 K/cumm [facility] Monocyte abs 1.3(H) 0.2 - 0.8 K/cumm [facility] Eosinophil abs 0.4 0.0 - 0.5 K/cumm [facility] Basophil abs 0.1 0.0 - 0.1 K/cumm [facility] Neutrophil pct 77.5 % [facility] Comment: Interpretive Data Percent cell count reference ranges are not reported, since discordance with absolute values may lead to misinterpretation of CBC data. Current Interpretive Data was last revised on 2017. Imm gran pct 1.4 % [facility] Comment: Interpretive Data Percent cell count reference ranges are not reported, since discordance with absolute values may lead to misinterpretation of CBC data. Current Interpretive Data was last revised on 2017. Lymphocyte pct 10.8 % [facility] Comment: Interpretive Data Percent cell count reference ranges are not reported, since discordance with absolute values may lead to misinterpretation of CBC data. Current Interpretive Data was last revised on 2017. Monocyte pct 7.7 % [facility] Comment: Interpretive Data Percent cell count reference ranges are not reported, since discordance with absolute values may lead to misinterpretation of CBC data. Current Interpretive Data was last revised on 2017. Eosinophil pct 2.1 % [facility] Comment: Interpretive Data Percent cell count reference ranges are not reported, since discordance with absolute values may lead to misinterpretation of CBC data. Current Interpretive Data was last revised on 2017. Basophil pct 0.5 % [facility] Comment: Interpretive Data Percent cell count reference ranges are not reported, since discordance with absolute values may lead to misinterpretation of CBC data. Current Interpretive Data was last revised on 2017. Blood 05/06/2024 4:3 8 AM LINE CLEANER 05/06/2024 4:55 AM LINE CLEANER Duyen Malloy MD LAB BLOOD ORDERABLES Final Result [facility] Department [place] [address] * (ABNORMAL) CBC with auto differential (05/06/2024 4:38 AM LINE CLEANER) WBC 16.9(H) 3.8 - 9.9 K/cumm Hgb 7.9(L) 11.9 - 15.5 g/dL [facility] Hct 23.6(L) 35.6 - 45.5 % [facility] Plt 200 150 - 400 K/cumm [facility] MPV 10.0 9.1 - 12.3 fL [facility] RBC 2.63(L) 3.90 - 5.20 M/cumm [facility] MCV 89.7 81.3 - 96.4 fL [facility] MCH 30.0 27.1 - 33.3 pg [facility] MCHC 33.5 32.3 - 35.7 g/dL [facility] RDW CV 13.0 11.1 - 14.9 % [facility] RDW SD 42.7 35.7 - 48.1 fL [facility] NRBC abs 0.00 0.00 - 0.01 K/cumm [facility] Blood 05/06/2024 4:38 AM LINE CLEANER 05/06/2024 4:55 AM LINE CLEANER Duyen Malloy MD LAB BLOOD ORDERABLES Final Result Performing Organization Address City/[facility] Co de Phone Number [facility] [place] [address] * (ABNORMAL) Phosphorus (05/06/2024 4:38 AM LINE CLEANER) Pathologist [facility] Phosphorus, pl 4.7(H) 2.3 - 4.5 mg/dL Blood 05/06/2024 4:38 AM LINE CLEANER 05/06/2024 4:55 AM LINE CLEANER Duyen Malloy MD LAB BLOOD ORDERABLES Final Result Performing Organization Address [facility] Co de Phone Number [facility] [place] [address] * Magnesium (05/06/2024 4:38 AM LINE CLEANER) [facility] Magnesium 2.1 1.4 - 2.5 mg/dL Blood 05/06/2024 4:38 AM LINE CLEANER 05/06/2024 4:55 AM LINE CLEANER Duyen Malloy MD LAB BLOOD ORDERABLES Final Result Performing Organization Address [facility] [place] [address] * (ABNORMAL) Basic metabolic panel (05/06/2024 4:38 AM LINE CLEANER) Sodium 134(L) 135 - 145 mmol/L Potassium, pl 3.9 3.3 - 4.9 mmol/L [facility] Chloride 96(L) 97 - 110 mmol/L [facility] CO2 25 22 - 32 mmol/L [facility] Anion gap 13 2 - 15 mmol/L [facility] BUN 17 6 - 25 mg/dL [facility] Creatinine 4.77(H) 0.60 - 1.10 mg/dL [facility] Glucose 138 70 - 199 mg/dL [facility] Comment: Interpretive Data Fasting glucose >/= 126 [...] 2022. Calcium 9.1 8.5 - 10.3 mg/dL [facility] Blood 05/06/2024 4:38 AM LINE CLEANER 05/06/2024 4:55 AM LINE CLEANER Duyen Malloy MD LAB BLOOD ORDERABLES Final Result Performing Organization Address City/[facility]/ZIP Co de Phone Number [facility] [place] [address] * POCT glucose (05/05/2024 8:39 PM LINE CLEANER) Glucose, POC 192 70 - 199 mg/dL Blood 05/05/2024 8:39 PM LINE CLEANER 05/05/2024 8:39 PM LINE CLEANER Duyen Malloy MD LAB POCT ORDERABLES - ARELY CE Final Result Performing Organization Address [facility]/ZIP Co de Phone Number [facility] Department [place] [address] * POCT glucose (05/05/2024 4:48 PM LINE CLEANER) Glucose, POC 123 70 - 199 mg/dL Comment:Glu2: RN/ Notified Glucose comment 1 Glu2: RN/MD Notified [facility] Blood 05/05/2024 4:48 PM LINE CLEANER 05/05/2024 4:48 PM LINE CLEANER Duyen Malloy MD LAB POCT ORDERABLES - ARELY CE Final Result Performing Organization Address [facility] Co de Phone Number [facility] [place] [address] * POCT glucose (05/05/2024 12:27 PM LINE CLEANER) [facility] Glucose, POC 161 70 - 199 mg/dL Comment:Glu2: RN/ Notified Glucose comment 1 Glu2: RN/ Notified [facility] Blood 05/05/2024 12:2 7 PM LINE CLEANER 05/05/2024 12:27 PM LINE CLEANER Duyen Malloy MD LAB POCT ORDERABLES - ARELY CE Final Result Performing Organization Address [facility] Co de Phone Number [facility] [place] [address] * POCT glucose (05/05/2024 8:14 AM LINE CLEANER) [facility] Glucose, POC 100 70 - 199 mg/dL Comment:Glu2: RN/ Notified Glucose comment 1 Glu2: RN/ Notified [facility] Blood 05/05/2024 8:14 AM LINE CLEANER 05/05/2024 8:14 AM LINE CLEANER Duyen Malloy MD LAB POCT ORDERABLES - ARELY CE Final Result Performing Organization Address [facility] Co de Phone Number [facility] [place] [address] * (ABNORMAL) eGFR (05/05/2024 6:13 AM LINE CLEANER) [facility] eGFR 16(L) >=60 mL/min/1. 73 m2 Comment: [...] last reviewed 2021. Blood 05/05/2024 6:13 AM LINE CLEANER 05/05/2024 6:30 AM LINE CLEANER us Duyen Malloy MD LAB BLOOD ORDERABLES Final Result [facility] Department [place] [address] * (ABNORMAL) Differential, auto (05/05/2024 6:13 AM LINE CLEANER) [facility] Neutrophil abs 12.2(H) 1.5 - 6.5 K/cumm Imm gran abs 0.2(H) 0.0 - 0.1 K/cumm [facility] Lymphocyte abs 2.3 0.8 - 3.3 K/cumm [facility] Monocyte abs 1.6(H) 0.2 - 0.8 K/cumm [facility] Eosinophil abs 0.2 0.0 - 0.5 K/cumm [facility] Basophil abs 0.1 0.0 - 0.1 K/cumm [facility] Neutrophil pct 73.8 % [facility] Comment: Interpretive Data Percent cell count reference ranges are not reported, since discordance with absolute values may lead to misinterpretation of CBC data. Current Interpretive Data was last revised on 2017. Imm gran pct 1.3 % [facility] Comment: Interpretive Data Percent cell count reference ranges are not reported, since discordance with absolute values may lead to misinterpretation of CBC data. Current Interpretive Data was last revised on 2017. Lymphocyte pct 13.8 % [facility] Comment: Interpretive Data Percent cell count reference ranges are not reported, since discordance with absolute values may lead to misinterpretation of CBC data. Current Interpretive Data was last revised on 2017. Monocyte pct 9.5 % [facility] Comment: Interpretive Data Percent cell count reference ranges are not reported, since discordance with absolute values may lead to misinterpretation of CBC data. Current Interpretive Data was last revised on 2017. Eosinophil pct 1.2 % [facility] Comment: Interpretive Data Percent cell count reference ranges are not reported, since discordance with absolute values may lead to misinterpretation of CBC data. Current Interpretive Data was last revised on 2017. Basophil pct 0.4 % [facility] Comment: Interpretive Data Percent cell count reference ranges are not reported, since discordance with absolute values may lead to misinterpretation of CBC data. Current Interpretive Data was last revised on 2017. Blood 05/05/2024 6:13 AM LINE CLEANER 05/05/2024 6:30 AM LINE CLEANER us Duyen Malloy MD LAB BLOOD ORDERABLES Final Result [facility] Department [place] [address] * (ABNORMAL) CBC with auto differential (05/05/2024 6:13 AM LINE CLEANER) WBC 16.5(H) 3.8 - 9.9 K/cumm Hgb 7.6(L) 11.9 - 15.5 g/dL [facility] Hct 22.9(L) 35.6 - 45.5 % [facility] Plt 212 150 - 400 K/cumm [facility] MPV 9.5 9.1 - 12.3 fL [facility] RBC 2.58(L) 3.90 - 5.20 M/cumm [facility] MCV 88.8 81.3 - 96.4 fL [facility] MCH 29.5 27.1 - 33.3 pg [facility] MCHC 33.2 32.3 - 35.7 g/dL [facility] RDW CV 13.2 11.1 - 14.9 % [facility] RDW SD 43.1 35.7 - 48.1 fL [facility] NRBC abs 0.00 0.00 - 0.01 K/cumm [facility] Blood 05/05/2024 6:13 AM LINE CLEANER 05/05/2024 6:30 AM LINE CLEANER Duyen Malloy MD LAB BLOOD ORDERABLES Final Result Performing Organization Address [facility] Co de Phone Number [facility] Department [place] [address] * Hepatitis B core antibody, total Blood (05/05/2024 6:13 AM LINE CLEANER) Hep B core IgG/IgM Nonreactive Nonreactive Blood 05/05/2024 6:13 AM LINE CLEANER 05/05/2024 6:30 AM LINE CLEANER Duyen Malloy MD LAB MICROBIOLOGY - GENERAL ORDERABLES Final Result Performing Organization Address City/[facility] Co de Phone Number [facility] [place] [address] * Phosphorus (05/05/2024 6:13 AM LINE CLEANER) Phosphorus, pl 4.1 2.3 - 4.5 mg/dL Comment:Reviewed Blood 05/05/2024 6:13 AM LINE CLEANER 05/05/2024 6:30 AM LINE CLEANER Duyen Malloy MD LAB BLOOD ORDERABLES Final Result Performing Organization Address City/[facility] Co de Phone Number [facility] Department [place] [address] * Magnesium (05/05/2024 6:13 AM LINE CLEANER) [facility] Magnesium 2.1 1.4 - 2.5 mg/dL Blood 05/05/2024 6:13 AM LINE CLEANER 05/05/2024 6:30 AM LINE CLEANER Duyen Malloy MD LAB BLOOD ORDERABLES Final Result Performing Organization Address [facility]/[place] de Phone Number [facility] [place] [address] * (ABNORMAL) Basic metabolic panel (05/05/2024 6:13 AM LINE CLEANER) [facility] Sodium 137 135 - 145 mmol/L Potassium, pl 3.0(L) 3.3 - 4.9 mmol/L [facility] Chloride 100 97 - 110 mmol/L [facility] CO2 28 22 - 32 mmol/L [facility] Anion gap 9 2 - 15 mmol/L [facility] BUN 10 6 - 25 mg/dL [facility] Creatinine 3.31(H) 0.60 - 1.10 mg/dL [facility] Glucose 105 70 - 199 mg/dL [facility] Comment: Interpretive Data Fasting glucose >/= 126 [...] 2022. Calcium 8.8 8.5 - 10.3 mg/dL [facility] Blood 05/05/2024 6:13 AM LINE CLEANER 05/05/2024 6:30 AM LINE CLEANER Duyne Malloy MD LAB BLOOD ORDERABLES Final Result [facility] [place] [address] * POCT glucose (05/04/2024 11:33 PM LINE CLEANER) [facility] Glucose, POC 130 70 - 199 mg/dL Blood 05/04/2024 11:3 3 PM LINE CLEANER 05/04/2024 11:33 PM LINE CLEANER Duyen Malloy MD LAB POCT ORDERABLES - ARELY CE Final Result Performing Organization Address City/[facility] Co de Phone Number [facility] Department [place] [address] * Respiratory pathogen panel Nasopharyngeal (05/04/2024 9:54 PM LINE CLEANER) [facility] Influenza A RNA Not Detected Not Detected Influenza B RNA Not Detected Not Detected [facility] RSV RNA Not Detected Not Detected [facility] COVID-19 RNA Not Detected Not Detected [facility] Coronavirus 229E RNA Not Detected Not Detected [facility] Coronavirus HKU1 RNA Not Detected Not Detected [facility] Coronavirus NL63 RNA Not Detected Not Detected [facility] Coronavirus OC43 RNA Not Detected Not Detected [facility] Adenovirus DNA Not Detected Not Detected [facility] Metapneumovirus RNA Not Detected Not Detected [facility] Rhinovirus/Enterov irus RNA Not Detected Not Detected [facility] Parainfluenza 1 RNA Not Detected Not Detected [facility] Parainfluenza 2 RNA Not Detected Not Detected [facility] Parainfluenza 3 RNA Not Detected Not Detected [facility] Parainfluenza 4 RNA Not Detected Not Detected [facility] B. pertussis DNA Not Detected Not Detected [facility] B. parapertussis DNA Not Detected Not Detected [facility] C. pneumoniae DNA Not Detected Not Detected [facility] M. pneumoniae DNA Not Detected Not Detected [facility] Nasopharyngeal 05/04/2024 9: 54 PM LINE CLEANER 05/04/2024 10:38 PM LINE CLEANER Yoel [facility] - 05/04/2024 11:36 PM LINE CLEANER Is the Patient experiencing symptoms consistent with COVID?->Unknown Surveillance testing for transplant patient?->No Interpretive Data [facility] FilmArray Respiratory Panel (RP2.1) assay is a [...] assay has FDA clearance for testing of [employer] swabs. The performance of additional specimen types has been assessed by the performing laboratory. The performance characteristics of this assay have been determined by [facility] Molecular Infectious Disease Laboratory. Current interpretive data was last revised on 21. Duyen Malloy MD LAB MICROBIOLOGY - GENERAL ORDERABLES Final Result [facility] Department [place] [address] * Blood culture Blood (05/04/2024 9:54 PM LINE CLEANER) Report Final Report: No growth Blood 05/04/2024 9:54 PM LINE CLEANER 05/04/2024 10:35 PM LINE CLEANER Narrative [facility] ANDREWS - 05/09/2024 7:01 AM LINE CLEANER Collection->New stick (time of line placement) 1. [...] performance characteristics have been verified by the [facility] Microbiology Laboratory. For questions about this culture, contact the Microbiology Laboratory at [phone]. Interpretive data was last revised on 24. Duyen Malloy MD LAB MICROBIOLOGY - GENERAL ORDERABLES Final Result Performing Organization Address City/[facility]/ZIP Co de Phone Number [facility] ANDREWS Perla [facility] Department [place] [address] * Blood culture Blood (05/04/2024 9:54 PM LINE CLEANER) Report Final Report: No growth Blood 05/04/2024 9:54 PM LINE CLEANER 05/04/2024 10:34 PM LINE CLEANER Narrative [facility] MOORE - 05/09/2024 7:01 AM LINE CLEANER Collection->New stick (time of line placement) 1. [...] performance characteristics have been verified by the [facility] Microbiology Laboratory. For questions about this culture, contact the Microbiology Laboratory at [phone]. Interpretive data was last revised on 24. Duyen Malloy MD LAB MICROBIOLOGY - GENERAL ORDERABLES Final Result [facility] ANDREWS [facility] Department [place] [address] * XR Chest 1 View (05/04/2024 9:16 PM LINE CLEANER) Anatomical Region Laterality Modality Body, Chest N/A Computed Radiogr aphy 05/05/2024 8:57 AM LINE CLEANER Impressions 05/05/2024 8:57 AM LINE CLEANER Comparison is made to chest radiograph dated 05/03/2024. Right internal jugular venous approach catheter tip overlies the superior vena cava. No right lung consolidation. Minimal left basilar atelectasis. No pleural effusion or pneumothorax. Normal cardiomediastinal silhouette. Electronically signed by: Maura Rosas M.D. Narrative 05/05/2024 8:57 AM LINE CLEANER EXAMINATION: 1 view chest radiograph Procedure Note [...] sult * POCT glucose (05/04/2024 8:28 PM LINE CLEANER) Glucose, POC 197 70 - 199 mg/dL Blood 05/04/2024 8:28 PM LINE CLEANER 05/04/2024 8:28 PM LINE CLEANER Result [facility] Duyen Malloy MD LAB POCT ORDERABLES - ARELY CE Final Result Performing Organization Address [facility] Co de Phone Number [facility] Department [place] [address] * POCT glucose (05/04/2024 4:40 PM LINE CLEANER) Glucose, POC 80 70 - 199 mg/dL Comment:Glu2: RN/MD Notified Glucose comment 1 Glu2: RN/MD Notified [facility] Blood 05/04/2024 4:40 PM LINE CLEANER 05/04/2024 4:40 PM LINE CLEANER Duyen Malloy MD LAB POCT ORDERABLES - ARELY CE Final Result Performing Organization Address [facility] Co de Phone Number [facility] [place] [address] * POCT glucose (05/04/2024 2:39 PM LINE CLEANER) [facility] Glucose, POC 158 70 - 199 mg/dL Comment:Glu2: RN/ Notified Glucose comment 1 Glu2: RN/MD Notified [facility] Blood 05/04/2024 2:39 PM LINE CLEANER 05/04/2024 2:39 PM LINE CLEANER Duyen Malloy MD LAB POCT ORDERABLES - ARELY CE Final Result [facility] [place] [address] * POCT glucose (05/04/2024 12:25 PM LINE CLEANER) [facility] Glucose, POC 71 70 - 199 mg/dL Comment:Glu2: ALICIA/ Notified Glucose comment 1 Glu2: RN/ Notified [facility] Blood 05/04/2024 12:2 5 PM LINE CLEANER 05/04/2024 12:25 PM LINE CLEANER Duyen Malloy MD LAB POCT ORDERABLES - ARELY CE Final Result [facility] [place] [address] * (ABNORMAL) eGFR (05/04/2024 10:45 AM LINE CLEANER) [facility] eGFR 8(L) >=60 mL/min/1. 73 m2 Comment: [...] reviewed 2021. Blood 05/04/2024 10:4 5 AM LINE CLEANER 05/04/2024 10:56 AM LINE CLEANER us Duyen Malloy MD LAB BLOOD ORDERABLES Final Result [facility] Department [place] [address] * (ABNORMAL) Differential, auto (05/04/2024 10:45 AM LINE CLEANER) Neutrophil abs 11.5(H) 1.5 - 6.5 K/cumm Imm gran abs 0.3(H) 0.0 - 0.1 K/cumm [facility] Lymphocyte abs 1.5 0.8 - 3.3 K/cumm [facility] Monocyte abs 1.4(H) 0.2 - 0.8 K/cumm [facility] Eosinophil abs 0.1 0.0 - 0.5 K/cumm [facility] Basophil abs 0.1 0.0 - 0.1 K/cumm [facility] Neutrophil pct 77.5 % [facility] Comment: Interpretive Data Percent cell count reference ranges are not reported, since discordance with absolute values may lead to misinterpretation of CBC data. Current Interpretive Data was last revised on 2017. Imm gran pct 2.3 % [facility] Comment: Interpretive Data Percent cell count reference ranges are not reported, since discordance with absolute values may lead to misinterpretation of CBC data. Current Interpretive Data was last revised on 2017. Lymphocyte pct 10.1 % [facility] Comment: Interpretive Data Percent cell count reference ranges are not reported, since discordance with absolute values may lead to misinterpretation of CBC data. Current Interpretive Data was last revised on 2017. Monocyte pct 9.2 % [facility] Comment: Interpretive Data Percent cell count reference ranges are not reported, since discordance with absolute values may lead to misinterpretation of CBC data. Current Interpretive Data was last revised on 2017. Eosinophil pct 0.6 % [facility] Comment: Interpretive Data Percent cell count reference ranges are not reported, since discordance with absolute values may lead to misinterpretation of CBC data. Current Interpretive Data was last revised on 2017. Basophil pct 0.3 % [facility] Comment: Interpretive Data Percent cell count reference ranges are not reported, since discordance with absolute values may lead to misinterpretation of CBC data. Current Interpretive Data was last revised on 2017. Blood 05/04/2024 10:4 5 AM LINE CLEANER 05/04/2024 10:56 AM LINE CLEANER Duyen Malloy MD LAB BLOOD ORDERABLES Final Result [facility] Department [place] [address] * (ABNORMAL) CBC with auto differential (05/04/2024 10:45 AM LINE CLEANER) WBC 14.8(H) 3.8 - 9.9 K/cumm Hgb 8.0(L) 11.9 - 15.5 g/dL [facility] Hct 23.6(L) 35.6 - 45.5 % [facility] Plt 234 150 - 400 K/cumm [facility] MPV 9.4 9.1 - 12.3 fL [facility] RBC 2.66(L) 3.90 - 5.20 M/cumm [facility] MCV 88.7 81.3 - 96.4 fL [facility] MCH 30.1 27.1 - 33.3 pg [facility] MCHC 33.9 32.3 - 35.7 g/dL [facility] RDW CV 13.5 11.1 - 14.9 % [facility] RDW SD 43.8 35.7 - 48.1 fL [facility] NRBC abs 0.00 0.00 - 0.01 K/cumm [facility] Blood 05/04/2024 10:4 5 AM LINE CLEANER 05/04/2024 10:56 AM LINE CLEANER Duyen Malloy MD LAB BLOOD ORDERABLES Final Result Performing Organization Address City/[facility] Co de Phone Number [facility] [place] [address] * (ABNORMAL) Phosphorus (05/04/2024 10:45 AM LINE CLEANER) Pathologist [facility] Phosphorus, pl 6.3(H) 2.3 - 4.5 mg/dL Blood 05/04/2024 10:4 5 AM LINE CLEANER 05/04/2024 10:56 AM LINE CLEANER Troy Corley MD LAB BLOOD ORDERABLES Final Re sult Performing Organization Address [facility]/[place] de Phone Number [facility] [place] [address] * Magnesium (05/04/2024 10:45 AM LINE CLEANER) Pathologist [facility] Magnesium 2.0 1.4 - 2.5 mg/dL Blood 05/04/2024 10:4 5 AM LINE CLEANER 05/04/2024 10:56 AM LINE CLEANER Troy Corley MD LAB BLOOD ORDERABLES Final Re sult Performing Organization Address [facility] [place] [address] * (ABNORMAL) Basic metabolic panel (05/04/2024 10:45 AM LINE CLEANER) Sodium 136 135 - 145 mmol/L Potassium, pl 3.0(L) 3.3 - 4.9 mmol/L [facility] Chloride 99 97 - 110 mmol/L [facility] CO2 24 22 - 32 mmol/L [facility] Anion gap 13 2 - 15 mmol/L [facility] BUN 24 6 - 25 mg/dL [facility] Creatinine 5.60(H) 0.60 - 1.10 mg/dL [facility] Glucose 75 70 - 199 mg/dL [facility] Comment: Interpretive Data Fasting glucose >/= 126 [...] 2022. Calcium 9.0 8.5 - 10.3 mg/dL [facility] Blood 05/04/2024 10:4 5 AM LINE CLEANER 05/04/2024 10:56 AM LINE CLEANER us Troy Corley MD LAB BLOOD ORDERABLES Final Re sult [facility] [place] [address] * POCT glucose (05/04/2024 8:18 AM LINE CLEANER) [facility] Glucose, POC 101 70 - 199 mg/dL Comment:Glu2: RN/MD Notified Glucose comment 1 Glu2: RN/MD Notified [facility] Blood 05/04/2024 8:18 AM LINE CLEANER 05/04/2024 8:18 AM LINE CLEANER us Duyen Malloy MD LAB POCT ORDERABLES - ARELY CE Final Result [facility] Department [place] [address] * (ABNORMAL) eGFR (05/03/2024 11:05 PM LINE CLEANER) eGFR 10(L) >=60 mL/min/1. 73 m2 Comment: [...] reviewed 2021. Blood 05/03/2024 11:0 5 PM LINE CLEANER 05/03/2024 11:43 PM LINE CLEANER Troy Corley MD LAB BLOOD ORDERABLES Final Re sult Performing Organization Address City/[facility]/ZIP Co de Phone Number [facility] [place] [address] * (ABNORMAL) Phosphorus (05/03/2024 11:05 PM LINE CLEANER) Phosphorus, pl 4.9(H) 2.3 - 4.5 mg/dL Blood 05/03/2024 11:0 5 PM LINE CLEANER 05/03/2024 11:43 PM LINE CLEANER Troy Corley MD LAB BLOOD ORDERABLES Final Re [facility]ult [facility] [place] [address] * Magnesium (05/03/2024 11:05 PM LINE CLEANER) Pathologist [facility] Magnesium 1.9 1.4 - 2.5 mg/dL Blood 05/03/2024 11:0 5 PM LINE CLEANER 05/03/2024 11:43 PM LINE CLEANER Troy Corley MD LAB BLOOD ORDERABLES Final Re sult [facility] Department [place] [address] * (ABNORMAL) Basic metabolic panel (05/03/2024 11:05 PM LINE CLEANER) [facility] Sodium 137 135 - 145 mmol/L Potassium, pl 3.0(L) 3.3 - 4.9 mmol/L [facility] Chloride 98 97 - 110 mmol/L [facility] CO2 23 22 - 32 mmol/L [facility] Anion gap 16(H) 2 - 15 mmol/L [facility] BUN 24 6 - 25 mg/dL [facility] [facility]UGH[facility]S Creatinine 4.64(H) 0.60 - 1.10 mg/dL [facility] Glucose 107 70 - 199 mg/dL [facility] Comment: Interpretive Data Fasting glucose >/= 126 [...] 2022. Calcium 8.5 8.5 - 10.3 mg/dL [facility] Blood 05/03/2024 11:0 5 PM LINE CLEANER 05/03/2024 11:43 PM LINE CLEANER Troy Corley MD LAB BLOOD ORDERABLES Final Re sult [facility] Department [place] [address] * POCT glucose (05/03/2024 8:27 PM LINE CLEANER) Pathologist [facility] Glucose, POC 84 70 - 199 mg/dL Blood 05/03/2024 8:27 PM LINE CLEANER 05/03/2024 8:27 PM LINE CLEANER Troy Corley MD LAB POCT ORDERABLES - DEVICE Final Result Performing Organization Address [facility] Co de Phone Number [facility] [place] [address] * Transfuse RBC (05/03/2024 5:40 PM LINE CLEANER) Blood us Troy Corley MD BLOOD TRANSFUSION ORDERABLES Edited Result - Final Performing Organization Address [facility]/ZIP Co de Phone Number [facility] Department [place] [address] * (ABNORMAL) Hemoglobin and hematocrit (05/03/2024 5:05 PM LINE CLEANER) [facility] Hgb 7.3(L) 11.9 - 15.5 g/dL Hct 21.7(L) 35.6 - 45.5 % [facility] Blood 05/03/2024 5:05 PM LINE CLEANER 05/03/2024 5:24 PM LINE CLEANER us Troy Corley MD LAB BLOOD ORDERABLES Final Re sult [facility] [place] [address] * (ABNORMAL) eGFR (05/03/2024 4:13 PM LINE CLEANER) eGFR 7(L) >=60 mL/min/1. 73 m2 Comment: [...] last reviewed 2021. Blood 05/03/2024 4:13 PM LINE CLEANER 05/03/2024 4:23 PM LINE CLEANER Troy Corley MD LAB BLOOD ORDERABLES Final Re sult [facility] Department [place] [address] * (ABNORMAL) Phosphorus (05/03/2024 4:13 PM LINE CLEANER) Pathologist [facility] Phosphorus, pl 6.9(H) 2.3 - 4.5 mg/dL Blood 05/03/2024 4:13 PM LINE CLEANER 05/03/2024 4:23 PM LINE CLEANER Troy Corley MD LAB BLOOD ORDERABLES Final Re sult [facility] Department [place] [address] * Magnesium (05/03/2024 4:13 PM LINE CLEANER) Magnesium 1.9 1.4 - 2.5 mg/dL Blood 05/03/2024 4:13 PM LINE CLEANER 05/03/2024 4:23 PM LINE CLEANER Troy Corley MD LAB BLOOD ORDERABLES Final Re sult Performing Organization Address [facility]/ZIP Co de Phone Number [facility] Department [place] [address] * (ABNORMAL) Basic metabolic panel (05/03/2024 4:13 PM LINE CLEANER) Sodium 134(L) 135 - 145 mmol/L Potassium, pl 3.6 3.3 - 4.9 mmol/L [facility] Chloride 93(L) 97 - 110 mmol/L [facility] CO2 21(L) 22 - 32 mmol/L [facility] Anion gap 20(H) 2 - 15 mmol/L [facility] BUN 35(H) 6 - 25 mg/dL [facility] Creatinine 6.61(H) 0.60 - 1.10 mg/dL [facility] Glucose 115 70 - 199 mg/dL [facility] Comment: Interpretive Data Fasting glucose >/= 126 [...] 2022. Calcium 8.0(L) 8.5 - 10.3 mg/dL [facility] Blood 05/03/2024 4:13 PM LINE CLEANER 05/03/2024 4:23 PM LINE CLEANER Troy Corley MD LAB BLOOD ORDERABLES Final Re sult Performing Organization Address [facility]/ZIP Co de Phone Number [facility] Department [place] [address] * POCT glucose (05/03/2024 3:57 PM LINE CLEANER) [facility] Glucose, POC 158 70 - 199 mg/dL Blood 05/03/2024 3:57 PM LINE CLEANER 05/03/2024 3:57 PM LINE CLEANER Troy Corley MD LAB POCT ORDERABLES - DEVICE Final Result Performing Organization Address [facility] de Phone Number [facility] [place] [address] * Prepare RBC: 1 Units (05/03/2024 1:35 PM LINE CLEANER) [facility] Product code [id number] Unit Number [id number] [facility] Product Blood Type OPOS [facility] Dispense Status PRESUMED TRANSFUSED [facility] Blood 05/03/2024 1:35 PM LINE CLEANER 05/03/2024 1:37 PM LINE CLEANER Narrative [facility] - 05/04/2024 6:01 AM LINE CLEANER Are special requirements needed? (All products are leukoreduced and CMV- safe)- >No Date required:-[id number] LRRBC # of [id number] Reasons:-Hgb <7 g/dL} Troy Corley MD BLOOD BANK PRODUCT ORDERABLES Final Result Performing Organization Address [facility] de Phone Number [facility] [place] [address] * (ABNORMAL) Differential, auto (05/03/2024 12:51 PM LINE CLEANER) [facility] Neutrophil abs 10.3(H) 1.5 - 6.5 K/cumm Imm gran abs 0.3(H) 0.0 - 0.1 K/cumm [facility] Lymphocyte abs 1.9 0.8 - 3.3 K/cumm [facility] Monocyte abs 1.2(H) 0.2 - 0.8 K/cumm [facility] Eosinophil abs 0.1 0.0 - 0.5 K/cumm [facility] Basophil abs 0.0 0.0 - 0.1 K/cumm [facility] Neutrophil pct 74.4 % [facility] Comment: Interpretive Data Percent cell count reference ranges are not reported, since discordance with absolute values may lead to misinterpretation of CBC data. Current Interpretive Data was last revised on 2017. Imm gran pct 2.4 % [facility] Comment: Interpretive Data Percent cell count reference ranges are not reported, since discordance with absolute values may lead to misinterpretation of CBC data. Current Interpretive Data was last revised on 2017. Lymphocyte pct 14.1 % [facility] Comment: Interpretive Data Percent cell count reference ranges are not reported, since discordance with absolute values may lead to misinterpretation of CBC data. Current Interpretive Data was last revised on 2017. Monocyte pct 8.6 % [facility] Comment: Interpretive Data Percent cell count reference ranges are not reported, since discordance with absolute values may lead to misinterpretation of CBC data. Current Interpretive Data was last revised on 2017. Eosinophil pct 0.4 % [facility] Comment: Interpretive Data Percent cell count reference ranges are not reported, since discordance with absolute values may lead to misinterpretation of CBC data. Current Interpretive Data was last revised on 2017. Basophil pct 0.1 % [facility] Comment: Interpretive Data Percent cell count reference ranges are not reported, since discordance with absolute values may lead to misinterpretation of CBC data. Current Interpretive Data was last revised on 2017. Blood 05/03/2024 12:5 1 PM LINE CLEANER 05/03/2024 1:17 PM LINE CLEANER us Maxwell Busby MD LAB BLOOD ORDERABLES Fin al Result [facility] Department [place] [address] * (ABNORMAL) CBC with auto differential (05/03/2024 12:51 PM LINE CLEANER) WBC 13.8(H) 3.8 - 9.9 K/cumm Hgb 6.3(C) 11.9 - 15.5 g/dL [facility] Comment:Consistent with prev ious results Hct 18.7(L) 35.6 - 45.5 % [facility] Plt 248 150 - 400 K/cumm [facility] MPV 9.4 9.1 - 12.3 fL [facility] RBC 2.04(L) 3.90 - 5.20 M/cumm [facility] MCV 91.7 81.3 - 96.4 fL [facility] MCH 30.9 27.1 - 33.3 pg [facility] MCHC 33.7 32.3 - 35.7 g/dL [facility] RDW CV 13.2 11.1 - 14.9 % [facility] RDW SD 44.0 35.7 - 48.1 fL [facility] NRBC abs 0.03(H) 0.00 - 0.01 K/cumm [facility] Blood 05/03/2024 12:5 1 PM LINE CLEANER 05/03/2024 1:17 PM LINE CLEANER us Maxwell Busby MD LAB BLOOD ORDERABLES Fin al Result Performing Organization Address City/[facility]/ZIP Co de Phone Number [facility] [place] [address] * Potassium (05/03/2024 12:51 PM LINE CLEANER) Pathologist [facility] Potassium, pl 3.9 3.3 - 4.9 mmol/L Blood 05/03/2024 12:5 1 PM LINE CLEANER 05/03/2024 1:27 PM LINE CLEANER us Troy Corley MD LAB BLOOD ORDERABLES Final Re sult Performing Organization Address City/[facility]/ZIP Co de Phone Number [facility] Department [place] [address] * POCT glucose (05/03/2024 11:38 AM LINE CLEANER) Glucose, POC 99 70 - 199 mg/dL Blood 05/03/2024 11:3 8 AM LINE CLEANER 05/03/2024 11:38 AM LINE CLEANER us Troy Corley MD LAB POCT ORDERABLES - DEVICE Final Result [facility] Department [place] [address] * US Vein Duplex Upper Extremity Bilateral Complete (05/03/2024 11:31 AM LINE CLEANER) Anatomical Region Laterality Modality Vascular Bilateral Ultrasound 05/03/2024 10:0 5 AM LINE CLEANER Narrative 05/04/2024 10:15 AM LINE CLEANER [facility] - Department of Vascular Surgery, Vascular Laboratory [address] [place] [id number] Upper Extremity Venous Ultrasound Report Patient Name: ASHELY CUI L : 1965 (59y 1m) Study Date: 05/03/2024 10:05:46 AM Gender: F Tech: Location: [id number] Ref Provider: ARIADNA HUTCHINS Quality: Adequate Order Provider: ARIADNA HUTCHINS PROCEDURES: Vascular Report: Venous Duplex imaging was performed bilaterally in the upper extremities. The internal jugular, subclavian and axillary veins were evaluated for patency, spontaneity and phasicity with Doppler, compression and augmentation maneuvers. The brachial, basilic and cephalic veins were also evaluated with compression maneuvers. INDICATIONS: Pain in Arm, Right - FINDINGS: Performing Paint Prep Technician: Lara Fisher RVT. Bilateral: Venous Doppler signals [...] Jourdan Szymanski MD FACS 05/04/2024 10:14:15 AM LINE CLEANER Procedure Note Jourdan Szymanski MD - 05/04/2024 [facility] - Department of Vascular Surgery,Vascular Laboratory [address] [place] [address] Upper Extremity Venous Ultrasound Report Patient Name: ASHELY CUI L : 1965 (59y 1m) Study Date: 05/03/2024 10:05:46 AM Gender: F Tech: Location: [id number] Ref Provider: ARIADNA HUTCHINS Quality: Adequate Order Provider: ARIADNA HUTCHINS PROCEDURES: Vascular Report: Venous Duplex imaging was performed bilaterally in the upper extremities.The internal jugular, subclavian and axillary veins were evaluated for patency,spontaneity and phasicity with Doppler, compression and augmentation maneuvers. Thebrachial, basilic and cephalic veins were also evaluated with compression maneuvers. INDICATIONS: Pain in Arm, Right - FINDINGS: Performing Paint Prep Technician: Lara Fisher RVT. Bilateral: Venous Doppler signals [...] Jourdan Szymanski MD FACS 05/04/2024 10:14:15 AM LINE CLEANER us Ariadna Hutchins MD IMG US PROCEDURES Final Resu lt * TRANSTHORACIC ECHO (TTE) COMPLETE W DOPPLER/CF W CONTRAST (05/03/2024 10:20 AM LINE CLEANER) Anatomical Region Laterality Modality Ultrasound 05/03/2024 8:21 AM LINE CLEANER Narrative 05/03/2024 11:27 AM LINE CLEANER [facility] [place] [address] Transthoracic Echocardiographic Report Patient Name: ASHELY CUI L : 1965 (59y 1m) Gender: F Study Date: 05/03/2024 08:21:00 AM Ht(Inch): 60 Wt(Lb): 111.99 BSA: 1.47 Paint Prep Technician: Katya Cisneros [facility] Location: [id number] Order Provider: TROY CORLEY Heart Rate: 108 BMI: 21.87 BP: 95 / 53 Quality: The study images were of technically good quality. Ref Provider: TROY CORLEY PROCEDURES: Echocardiographic Report: ([id number], [id number]) Transthoracic complete echo with strain imaging and [...] By: Walker Saba M.D. 05/03/2024 11:26:10 AM LINE CLEANER Electronically Signed By: Walker Saba M.D. 05/03/2024 11:26:10 AM LINE CLEANER Procedure Note Walker Saba MD - 05/03/2024 [facility] [place] [address] Transthoracic Echocardiographic Report Patient Name: ASHELY CUI L : 1965 (59y 1m) Gender: F Study Date: 05/03/2024 08:21:00 AM Ht(Inch): 60 Wt(Lb): 111.99 BSA: 1.47 Paint Prep Technician: Katya Cisneros RDCS Location: [id number] Order Provider:TROY CORLEY Heart Rate: 108 BMI: 21.87 BP: 95 / 53 Quality: The study images were oftechnically good quality. Ref Provider: TROY CORLEY PROCEDURES: Echocardiographic Report: ([id number], [id number]) Transthoracic complete echo withstrain imaging and contrast, [...] LA Length 2C 3.15 cm MV Decel Equs038.91 msec [ 104.00 - 258.00 ] LA [...] By: Walker Saba M.D. 05/03/2024 11:26:10 AM LINE CLEANER Electronically Signed By: Walker Saba M.D. 05/03/2024 11:26:10 AM LINE CLEANER us Troy Corley MD CV ECHO PROCEDURES Final Resu lt * POCT glucose (05/03/2024 9:53 AM LINE CLEANER) Glucose, POC 116 70 - 199 mg/dL Blood 05/03/2024 9:53 AM LINE CLEANER 05/03/2024 9:53 AM LINE CLEANER us Troy Corley MD LAB POCT ORDERABLES - DEVICE Final Result Performing Organization Address [facility] Co de Phone Number [facility] [place] [address] * POCT glucose (05/03/2024 9:01 AM LINE CLEANER) [facility] Glucose, POC 86 70 - 199 mg/dL Blood 05/03/2024 9:01 AM LINE CLEANER 05/03/2024 9:01 AM LINE CLEANER us Troy Corley MD LAB POCT ORDERABLES - DEVICE Final Result Performing Organization Address [facility] de Phone Number [facility] Department [place] [address] * (ABNORMAL) eGFR (05/03/2024 8:29 AM LINE CLEANER) eGFR 7(L) >=60 mL/min/1. 73 m2 Comment: [...] last reviewed 2021. Blood 05/03/2024 8:29 AM LINE CLEANER 05/03/2024 9:19 AM LINE CLEANER us Troy Corley MD LAB BLOOD ORDERABLES Final Re sult [facility] Department [place] [address] * (ABNORMAL) Differential, auto (05/03/2024 8:29 AM LINE CLEANER) Pathologist [facility] Neutrophil abs 11.9(H) 1.5 - 6.5 K/cumm Imm gran abs 0.4(H) 0.0 - 0.1 K/cumm [facility] Lymphocyte abs 1.7 0.8 - 3.3 K/cumm [facility] Monocyte abs 1.0(H) 0.2 - 0.8 K/cumm [facility] Eosinophil abs 0.0 0.0 - 0.5 K/cumm [facility] Basophil abs 0.0 0.0 - 0.1 K/cumm [facility] Neutrophil pct 78.6 % [facility] Comment: Interpretive Data Percent cell count reference ranges are not reported, since discordance with absolute values may lead to misinterpretation of CBC data. Current Interpretive Data was last revised on 2017. Imm gran pct 2.8 % [facility] Comment: Interpretive Data Percent cell count reference ranges are not reported, since discordance with absolute values may lead to misinterpretation of CBC data. Current Interpretive Data was last revised on 2017. Lymphocyte pct 11.5 % [facility] Comment: Interpretive Data Percent cell count reference ranges are not reported, since discordance with absolute values may lead to misinterpretation of CBC data. Current Interpretive Data was last revised on 2017. Monocyte pct 6.7 % [facility] Comment: Interpretive Data Percent cell count reference ranges are not reported, since discordance with absolute values may lead to misinterpretation of CBC data. Current Interpretive Data was last revised on 2017. Eosinophil pct 0.3 % [facility] Comment: Interpretive Data Percent cell count reference ranges are not reported, since discordance with absolute values may lead to misinterpretation of CBC data. Current Interpretive Data was last revised on 2017. Basophil pct 0.1 % [facility] Comment: Interpretive Data Percent cell count reference ranges are not reported, since discordance with absolute values may lead to misinterpretation of CBC data. Current Interpretive Data was last revised on 2017. Blood 05/03/2024 8:29 AM LINE CLEANER 05/03/2024 9:17 AM LINE CLEANER Troy Corley MD LAB BLOOD ORDERABLES Final Re sult [facility] [place] [address] * Critical Result Callback Chemistry (05/03/2024 8:29 AM LINE CLEANER) Date Notified [id number] Time Notified 1008 [facility] TestName Glucose [facility] Called/Read Back Kori Flores [facility] Credentials RN [facility] ANDREWS Called By DON ANDREWS Blood 05/03/2024 8:29 AM LINE CLEANER 05/03/2024 9:19 AM LINE CLEANER Troy Corley MD LAB BLOOD ORDERABLES Final Re sult [facility] Department [place] [address] * (ABNORMAL) CBC with auto differential (05/03/2024 8:29 AM LINE CLEANER) WBC 15.2(H) 3.8 - 9.9 K/cumm Hgb 6.2(C) 11.9 - 15.5 g/dL [facility] Comment:Consistent with prev ious results Hct 18.8(L) 35.6 - 45.5 % [facility] Plt 260 150 - 400 K/cumm [facility] MPV 10.1 9.1 - 12.3 fL [facility] RBC 2.05(L) 3.90 - 5.20 M/cumm [facility] MCV 91.7 81.3 - 96.4 fL [facility] MCH 30.2 27.1 - 33.3 pg [facility] MCHC 33.0 32.3 - 35.7 g/dL [facility] RDW CV 13.4 11.1 - 14.9 % [facility] RDW SD 45.6 35.7 - 48.1 fL [facility] NRBC abs 0.04(H) 0.00 - 0.01 K/cumm [facility] Blood 05/03/2024 8:29 AM LINE CLEANER 05/03/2024 9:17 AM LINE CLEANER us Troy Corley MD LAB BLOOD ORDERABLES Final Re sult [facility] Department [place] [address] * (ABNORMAL) Reticulocyte Count (05/03/2024 8:29 AM LINE CLEANER) Pathologist [facility] Retics, absolute 0.034 0.020 - 0.087 M/cumm Retics 1.7 0.4 - 2.9 % [facility] Reticulocyte Hgb 27.1(L) 30.5 - 38.0 pg [facility] Blood 05/03/2024 8:29 AM LINE CLEANER 05/03/2024 9:14 AM LINE CLEANER Ariadna Hutchins MD LAB BLOOD ORDERABLES Final R esult Performing Organization Address [facility] Co de Phone Number [facility] [place] [address] * (ABNORMAL) Phosphorus (05/03/2024 8:29 AM LINE CLEANER) Phosphorus, pl 5.8(H) 2.3 - 4.5 mg/dL Comment:Repeated and Verifie d Blood 05/03/2024 8:29 AM LINE CLEANER 05/03/2024 9:13 AM LINE CLEANER Troy Corley MD LAB BLOOD ORDERABLES Final Re sult Performing Organization Address [facility] de Phone Number [facility] [place] [address] * Magnesium (05/03/2024 8:29 AM LINE CLEANER) Magnesium 1.8 1.4 - 2.5 mg/dL Blood 05/03/2024 8:29 AM LINE CLEANER 05/03/2024 9:13 AM LINE CLEANER Troy Corley MD LAB BLOOD ORDERABLES Final Re sult Performing Organization Address [facility] de Phone Number [facility] Department [place] [address] * (ABNORMAL) Lactate dehydrogenase (LD) (05/03/2024 8:29 AM LINE CLEANER) Lactate dehydrogenase (LDH) 257(H) 100 - 250 Units/L Blood 05/03/2024 8:29 AM LINE CLEANER 05/03/2024 9:13 AM LINE CLEANER Troy Corley MD LAB BLOOD ORDERABLES Final Re sult Performing Organization Address [facility] Co de Phone Number [facility] Department [place] [address] * (ABNORMAL) Basic metabolic panel (05/03/2024 8:29 AM LINE CLEANER) Pathologist [facility] Sodium 135 135 - 145 mmol/L Potassium, pl 4.1 3.3 - 4.9 mmol/L [facility] Chloride 95(L) 97 - 110 mmol/L [facility] CO2 22 22 - 32 mmol/L [facility] Anion gap 18(H) 2 - 15 mmol/L [facility] BUN 34(H) 6 - 25 mg/dL [facility] Creatinine 6.17(H) 0.60 - 1.10 mg/dL [facility] Glucose 50(C) 70 - 199 mg/dL [facility] Comment: Glycolysis suspected; suggest sending a khan [...] 2022. Calcium 8.0(L) 8.5 - 10.3 mg/dL [facility] Blood 05/03/2024 8:29 AM LINE CLEANER 05/03/2024 9:13 AM LINE CLEANER us Troy Corley MD LAB BLOOD ORDERABLES Final Re sult [facility] Department [place] [address] * (ABNORMAL) POCT glucose (05/03/2024 8:21 AM LINE CLEANER) Glucose, POC 68(L) 70 - 199 mg/dL Blood 05/03/2024 8:21 AM LINE CLEANER 05/03/2024 8:21 AM LINE CLEANER us Troy Corley MD LAB POCT ORDERABLES - DEVICE Final Result Performing Organization Address [facility] Co de Phone Number [facility] [place] [address] * Transfuse RBC (05/03/2024 5:26 AM LINE CLEANER) Blood us Troy Corley MD BLOOD TRANSFUSION ORDERABLES Final Result Performing Organization Address [facility]/[place] [address] * (ABNORMAL) Protein / creatinine ratio, urine, random (05/03/2024 5:15 AM LINE CLEANER) Protein, ur, quant 46.9 mg/dL Comment: Interpretive Data No reference range established. Current interpretive data was last revised 2018. Creatinine Ur 80.5 mg/dL [facility] Comment: Interpretive Data No reference range established. Current interpretive data was last revised 2018. Protein/creatinin e ratio 582.6(H) 0.0 - 180.0 mg/g CR [facility] Urine 05/03/2024 5:15 AM LINE CLEANER 05/03/2024 5:55 AM LINE CLEANER us Troy Corley MD LAB URINE ORDERABLES Final Re sult Performing Organization Address [facility] Co de Phone Number [facility] [place] [address] * Sodium, urine, random (05/03/2024 5:15 AM LINE CLEANER) Sodium, ur <20 mmol/L Comment: Interpretive Data No reference range established. Current interpretive data was last revised 2018. Urine (Urine, Clean Catch) 05/03/2024 5:15 AM LINE CLEANER 05/03/2024 5:55 AM LINE CLEANER us Troy Corley MD LAB URINE ORDERABLES Final Re sult Performing Organization Address [facility] de Phone Number [facility] [place] [address] * Potassium, urine, random (05/03/2024 5:15 AM LINE CLEANER) Potassium conc, ur 79.2 mmol/L Comment: Interpretive Data No reference range established. Current interpretive data was last revised 2018. Urine (Urine, Clean Catch) 05/03/2024 5:15 AM LINE CLEANER 05/03/2024 5:55 AM LINE CLEANER us Troy Corley MD LAB URINE ORDERABLES Final Re sult Performing Organization Address [facility] de Phone Number [facility] [place] [address] * Chloride, urine, random (05/03/2024 5:15 AM LINE CLEANER) Chloride, ur <25 mmol/L Comment: Interpretive Data No reference range established. Current interpretive data was last revised 2018. Urine (Urine, Clean Catch) 05/03/2024 5:15 AM LINE CLEANER 05/03/2024 5:55 AM LINE CLEANER us Troy Corley MD LAB URINE ORDERABLES Final Re sult Performing Organization Address [facility] [address] * US Kidney Complete (05/03/2024 4:05 AM LINE CLEANER) Anatomical Region Laterality Modality Kidney N/A Ultrasound 05/03/2024 4:11 AM LINE CLEANER Impressions 05/03/2024 8:12 AM LINE CLEANER No sonographic evidence of hydronephrosis within the limitations as above. Small, echogenic kidneys suggestive of chronic renal parenchymal disease. Dictated by: Beck Massey MD The radiology attending physician has personally reviewed this study, and had reviewed and/or edited this written report and agrees with it. Electronically signed by: Andrei Altamirano M.D. Narrative 05/03/2024 8:12 AM LINE CLEANER EXAMINATION: PORTABLE COMPLETE RENAL SONOGRAM HISTORY: 59-year-old [...] Electronically signed by: Andrei Altamirano M.D. us Ariadna Hutchins MD IMG US PROCEDURES Final Resu lt * XR Chest 1 View (05/03/2024 3:47 AM LINE CLEANER) Anatomical Region Laterality Modality Body, Chest N/A Digital Radiogra phy 05/03/2024 9:53 AM LINE CLEANER Impressions 05/03/2024 10:07 AM LINE CLEANER Interval placement of a right internal jugular central venous line terminates in the superior vena cava. No consolidation, pleural effusion or pneumothorax. Normal cardiomediastinal silhouette. Dictated by: Cami Dean MD The radiology attending physician has personally reviewed this study, and had reviewed and/or edited this written report and agrees with it. Electronically signed by: Binta Nails M.D. Narrative 05/03/2024 10:07 AM LINE CLEANER EXAMINATION: XR CHEST 1 VIEW HISTORY: trialysis [...] it. Electronically signed by: Binta Nails M.D. Ariadna Hutchins MD IMG XR PROCEDURES Final Resu lt * (ABNORMAL) Potassium, whole blood (05/03/2024 3:22 AM LINE CLEANER) [facility] Signature Potassium, bld 6.6(C) 3.3 - 4.9 mmol/L Comment:Reviewed Blood 05/03/2024 3:22 AM LINE CLEANER 05/03/2024 3:32 AM LINE CLEANER Troy Corley MD LAB BLOOD ORDERABLES Final Re sult [facility] [place] [address] * (ABNORMAL) Differential, auto (05/03/2024 3:22 AM LINE CLEANER) Neutrophil abs 11.0(H) 1.5 - 6.5 K/cumm Imm gran abs 0.8(H) 0.0 - 0.1 K/cumm [facility] Lymphocyte abs 2.0 0.8 - 3.3 K/cumm [facility] Monocyte abs 1.1(H) 0.2 - 0.8 K/cumm [facility] Eosinophil abs 0.0 0.0 - 0.5 K/cumm [facility] Basophil abs 0.0 0.0 - 0.1 K/cumm [facility] Neutrophil pct 73.8 % [facility] Comment: Interpretive Data Percent cell count reference ranges are not reported, since discordance with absolute values may lead to misinterpretation of CBC data. Current Interpretive Data was last revised on 2017. Imm gran pct 5.3 % [facility] Comment: Interpretive Data Percent cell count reference ranges are not reported, since discordance with absolute values may lead to misinterpretation of CBC data. Current Interpretive Data was last revised on 2017. Lymphocyte pct 13.4 % [facility] Comment: Interpretive Data Percent cell count reference ranges are not reported, since discordance with absolute values may lead to misinterpretation of CBC data. Current Interpretive Data was last revised on 2017. Monocyte pct 7.3 % [facility] Comment: Interpretive Data Percent cell count reference ranges are not reported, since discordance with absolute values may lead to misinterpretation of CBC data. Current Interpretive Data was last revised on 2017. Eosinophil pct 0.1 % [facility] Comment: Interpretive Data Percent cell count reference ranges are not reported, since discordance with absolute values may lead to misinterpretation of CBC data. Current Interpretive Data was last revised on 2017. Basophil pct 0.1 % [facility] Comment: Interpretive Data Percent cell count reference ranges are not reported, since discordance with absolute values may lead to misinterpretation of CBC data. Current Interpretive Data was last revised on 2017. Blood 05/03/2024 3:22 AM LINE CLEANER 05/03/2024 3:46 AM LINE CLEANER us Troy Corley MD LAB BLOOD ORDERABLES Final Re sult Performing Organization Address [facility] Co de Phone Number [facility] [place] [address] * Critical Result Callback Chemistry (05/03/2024 3:22 AM LINE CLEANER) Date Notified 20240503 Time Notified 423 [facility] TestName Potassium Plas [facility] Called/Read Back Kelley [facility] Credentials RN [facility] Called By S [facility] Blood 05/03/2024 3:22 AM LINE CLEANER 05/03/2024 3:46 AM LINE CLEANER us Jed Saenz MD LAB BLOOD ORDERABLES Final Res ult Performing Organization Address [facility] Co de Phone Number [facility] [place] [address] * Critical Result Callback Chemistry (05/03/2024 3:22 AM LINE CLEANER) Date Notified [id number] Time Notified 357 [facility] TestName Potassium WB [facility] Called/Read Back Jolynn Reeves [facility] Credentials RN [facility] Called By S [facility] Blood 05/03/2024 3:22 AM LINE CLEANER 05/03/2024 3:32 AM LINE CLEANER us Troy Corley MD LAB BLOOD ORDERABLES Final Re sult Performing Organization Address City/[facility]/ZIP Co de Phone Number [facility] Department [place] [address] * (ABNORMAL) CBC with auto differential (05/03/2024 3:22 AM LINE CLEANER) [facility] WBC 14.9(H) 3.8 - 9.9 K/cumm Hgb 6.1(C) 11.9 - 15.5 g/dL [facility] Comment:latonia biggs rn. Critical result called to and read back by LATONIA BIGGS RN on 05 03 2024 at 0359 to Lyly Yanez. Hct 19.3(L) 35.6 - 45.5 % [facility] Plt 280 150 - 400 K/cumm [facility] MPV 9.5 9.1 - 12.3 fL [facility] RBC 2.04(L) 3.90 - 5.20 M/cumm [facility] MCV 94.6 81.3 - 96.4 fL [facility] MCH 29.9 27.1 - 33.3 pg [facility] MCHC 31.6(L) 32.3 - 35.7 g/dL [facility] RDW CV 13.1 11.1 - 14.9 % [facility] RDW SD 44.9 35.7 - 48.1 fL [facility] NRBC abs 0.06(H) 0.00 - 0.01 K/cumm [facility] Blood 05/03/2024 3:22 AM LINE CLEANER 05/03/2024 3:46 AM LINE CLEANER us Troy Corley MD LAB BLOOD ORDERABLES Final Re sult [facility] [place] [address] * Lactate, whole blood (05/03/2024 3:22 AM LINE CLEANER) [facility] Lactate, bld 1.0 0.7 - 2.0 mmol/L Blood 05/03/2024 3:22 AM LINE CLEANER 05/03/2024 3:32 AM LINE CLEANER us Troy Corley MD LAB BLOOD ORDERABLES Final Re sult Performing Organization Address [facility] [address] * Type and screen (05/03/2024 3:22 AM LINE CLEANER) Zackary, indirect Negative ABO Rh O Positive [facility] Blood 05/03/2024 3:22 AM LINE CLEANER 05/03/2024 3:54 AM LINE CLEANER Narrative [facility] - 05/03/2024 5:45 AM LINE CLEANER Has the patient had Daratumumab or Isatuximab in the past 6 months?->Unknown us Troy Corley MD LAB BLOOD BANK TEST ORDERABLE S Final Result Performing Organization Address [facility] de Phone Number [facility] [place] [address] * (ABNORMAL) Potassium (05/03/2024 3:22 AM LINE CLEANER) Potassium, pl 6.5(C) 3.3 - 4.9 mmol/L Blood 05/03/2024 3:22 AM LINE CLEANER 05/03/2024 3:33 AM LINE CLEANER us Troy Corley MD LAB BLOOD ORDERABLES Final Re sult Performing Organization Address [facility] [place] [address] * Haptoglobin (05/03/2024 3:22 AM LINE CLEANER) Haptoglobin 154.0 30.0 - 200.0 mg/dL Blood 05/03/2024 3:22 AM LINE CLEANER 05/03/2024 3:33 AM LINE CLEANER us Troy Corley MD LAB BLOOD ORDERABLES Final Re sult Performing Organization Address [facility] Co de Phone Number [facility] [place] [address] * (ABNORMAL) Blood gas, venous (05/03/2024 3:22 AM LINE CLEANER) pH, Venous 7.21(L) 7.32 - 7.43 PCO2, Venous 34(L) 40 - 50 mmHg [facility] PO2, Venous 36 mmHg [facility] Comment: Interpretive Data No Reference Range Established Current Interpretive Data was last revised on 2017. HCO3 Venous, Calculated 14(L) 20 - 30 mmol/L [facility] BE, venous -13 mmol/L [facility] Comment: Interpretive Data No Reference Range Established Current Interpretive Data was last revised on 2017. Blood 05/03/2024 3:22 AM LINE CLEANER 05/03/2024 3:32 AM LINE CLEANER Troy Corley MD LAB BLOOD ORDERABLES Final Re sult Performing Organization Address [facility] Co de Phone Number [facility] [place] [address] * (ABNORMAL) POC Blood Gas and Chemistries, Arterial - (05/03/2024 2:45 AM LINE CLEANER) Pathologist [facility] Hct, POC 29.0(L) 36.3 - 45.3 % Total Hb, POC 9.5(L) 11.9 - 15.5 g/dL [facility] Blood 05/03/2024 2:45 AM LINE CLEANER 05/03/2024 2:45 AM LINE CLEANER Troy Corley MD LAB POCT ORDERABLES - DEVICE Final Result Performing Organization Address City/[facility] Co de Phone Number [facility] [place] [address] * Troponin I high-sensitivity 2-hour (05/03/2024 2:36 AM LINE CLEANER) Trop I hs 17 <=17 ng/L Comment: Interpretive Data For further hscTnI resources including the diagnostic algorithm and an aid in interpretation, copy and paste this link: https://bjhlab.testcatalog.org/show/hsTrop-1 Current Interpretive Data last revised 2019. Trop I hs delta See Comment ng/L [facility] Comment:Inappropriate collec tion time to report a delta. Trop I hs pct delta See Comment % [facility] Comment:Inappropriate collec tion time to report a delta. Trop I hs interp See Comment [facility] Comment:Inappropriate collec tion time to report a delta. Blood 05/03/2024 2:36 AM LINE CLEANER 05/03/2024 3:12 AM LINE CLEANER us Nikki Orlando NP LAB BLOOD ORDERABLES Final Result Performing Organization Address [facility] Co de Phone Number [facility] [place] [address] * HIV 1/2 Antibody plus p24 Antigen Blood (05/03/2024 2:36 AM LINE CLEANER) Pathologist [facility] HIV 1/2 ab + p24 ag Nonreactive Nonreactive Comment:Nonreactive for HIV- 1 antigen and HIV-1/HIV-2 antibodies. No laboratory evidence of HIV infection. If acute HIV infection is suspected, consider testing for HIV-1 RNA. Current interpretive data was last revised on 21. Blood 05/03/2024 2:36 AM LINE CLEANER 05/03/2024 3:12 AM LINE CLEANER us Troy Corley MD LAB MICROBIOLOGY - GENERAL OR DERABLES Final Result Performing Organization Address City/[facility]/ZIP Co de Phone Number [facility] [place] [address] * Hepatitis C antibody Blood (05/03/2024 2:36 AM LINE CLEANER) Hep C Ab Nonreactive Nonreactive Comment:Antibodies to HCV no t detected. Does NOT exclude the possibility of recent exposure to HCV. Current interpretive data was last revised on 21 Blood 05/03/2024 2:36 AM LINE CLEANER 05/03/2024 3:12 AM LINE CLEANER us Troy Corley MD LAB MICROBIOLOGY - GENERAL OR DERABLES Final Result Performing Organization Address City/[facility] Co de Phone Number [facility] [place] [address] * Hepatitis B surface antibody (immune status) Blood (05/03/2024 2:36 AM LINE CLEANER) Pathologist [facility] HBsAb (immune status) Nonreactive Comment:This result is consi stent with a lack of immunity to Hepatitis B Virus when used in the setting of routine screening. Current interpretative data was last revised on 21 Blood 05/03/2024 2:36 AM LINE CLEANER 05/03/2024 3:12 AM LINE CLEANER us Troy Corley MD LAB MICROBIOLOGY - GENERAL OR DERABLES Final Result Performing Organization Address [facility] Co de Phone Number [facility] [place] [address] * Hepatitis B Surface Antigen Blood (05/03/2024 2:36 AM LINE CLEANER) HepBsAg Nonreactive Nonreactive Blood 05/03/2024 2:36 AM LINE CLEANER 05/03/2024 3:12 AM LINE CLEANER us Tory Corley MD LAB MICROBIOLOGY - GENERAL OR DERABLES Final Result Performing Organization Address [facility] Co de Phone Number [facility] [place] [address] * Infection Prevention MRSA Only (Staphylococcus aureus) Culture Nasal (05/03/2024 2:36 AM LINE CLEANER) Report Final Report: Negative Nasal 05/03/2024 2:36 AM LINE CLEANER 05/03/2024 4:11 AM LINE CLEANER Narrative [facility] - 05/04/2024 6:18 AM LINE CLEANER Testing performed by [facility] ([phone]). us Troy Corley MD LAB MICROBIOLOGY - GENERAL OR DERABLES Final Result Performing Organization Address [facility]/ZIP Co de Phone Number [facility] [place] [address] * (ABNORMAL) PTH (05/03/2024 2:36 AM LINE CLEANER) Pathologist [facility] PTH 576(H) 15 - 65 pg/mL Blood 05/03/2024 2:36 AM LINE CLEANER 05/03/2024 2:59 AM LINE CLEANER us Troy Corley MD LAB BLOOD ORDERABLES Final Re sult Performing Organization Address [facility] Co de Phone Number [facility] [place] [address] * (ABNORMAL) Hemoglobin A1c (05/03/2024 2:36 AM LINE CLEANER) Hgb A1C 6.2(H) 4.0 - 5.6 % Estimated Average Glucose 131 mg/dL [facility] Comment: The ADA recommends reporting an estimated Average Glucose (eAG) with all Hemoglobin A1c results using the equation derived from a study of 507 normal and diabetic adults. Minority populations were underrepresented and children were not included. (Diabetes Care 2020; 43(S1): S66-S76). The eAG is not equivalent to a fasting glucose. Blood 05/03/2024 2:36 AM LINE CLEANER 05/03/2024 2:59 AM LINE CLEANER us Troy Corley MD LAB BLOOD ORDERABLES Final Re sult Performing Organization Address City/[facility]/ZIP Co de Phone Number [facility] Department [place] [address] * (ABNORMAL) eGFR (05/03/2024 2:33 AM LINE CLEANER) eGFR 3(L) >=60 mL/min/1. 73 m2 Comment: [...] last reviewed 2021. Blood 05/03/2024 2:33 AM LINE CLEANER 05/03/2024 3:19 AM LINE CLEANER Troy Corley MD LAB BLOOD ORDERABLES Final Re sult [facility] Department [place] [address] * Critical Result Callback Chemistry (05/03/2024 2:33 AM LINE CLEANER) Date Notified 20240503 Time Notified 407 [facility] TestName Anion Gap, Potassium Plas [facility] Called/Read Back Jolynn ANDREWS Credentials RN [facility] Called By RKJayjay [facility] Blood 05/03/2024 2:33 AM LINE CLEANER 05/03/2024 3:19 AM LINE CLEANER us Troy Corley MD LAB BLOOD ORDERABLES Final Re sult [facility] Department [place] [address] * (ABNORMAL) Pro B-type natriuretic peptide (05/03/2024 2:33 AM LINE CLEANER) NT-proBNP 3,761(H) <=300 pg/mL Comment: Interpretive Comments: [...] as advanced age. - References: 1. Manfred JL et.al. Eur Heart J. 2006:27:330-337. 2. Trista DELEON, Saran CARVER. J. AM Dai Cardiol: Cardiovasc Imag. 2009;2: 216- 225. Interpretive Data Last Revised Date: 2017. Blood 05/03/2024 2:33 AM LINE CLEANER 05/03/2024 3:19 AM LINE CLEANER us Troy Corley MD LAB BLOOD ORDERABLES Final Re sult Performing Organization Address [facility] de Phone Number [facility] [place] [address] * Calcium, ionized (05/03/2024 2:33 AM LINE CLEANER) Calcium, Ionized 5.00 4.50 - 5.10 mg/dL Blood 05/03/2024 2:33 AM LINE CLEANER 05/03/2024 3:15 AM LINE CLEANER us Troy Corley MD LAB BLOOD ORDERABLES Final Re sult Performing Organization Address [facility] Phone Number [facility] [place] [address] * (ABNORMAL) Vitamin D 25 hydroxy (05/03/2024 2:33 AM LINE CLEANER) Vitamin D 25-OH 6(L) 30 - 80 ng/mL Blood 05/03/2024 2:33 AM LINE CLEANER 05/03/2024 3:19 AM LINE CLEANER us Troy Corley MD LAB BLOOD ORDERABLES Final Re sult Performing Organization Address [facility] de Phone Number [facility] Department [place] [address] * (ABNORMAL) Phosphorus (05/03/2024 2:33 AM LINE CLEANER) Phosphorus, pl 13.5(H) 2.3 - 4.5 mg/dL Blood 05/03/2024 2:33 AM LINE CLEANER 05/03/2024 3:19 AM LINE CLEANER us Troy Corley MD LAB BLOOD ORDERABLES Final Re sult Performing Organization Address [facility] Co de Phone Number [facility] [place] [address] * (ABNORMAL) Magnesium (05/03/2024 2:33 AM LINE CLEANER) Magnesium 2.9(H) 1.4 - 2.5 mg/dL Blood 05/03/2024 2:33 AM LINE CLEANER 05/03/2024 3:19 AM LINE CLEANER Troy Corley MD LAB BLOOD ORDERABLES Final Re sult Performing Organization Address [facility] [place] [address] * Cholesterol, LDL, direct (05/03/2024 2:33 AM LINE CLEANER) LDL Cholesterol, Direct 74 <=129 mg/dL Comment: [...] revised on 2017. Blood 05/03/2024 2:33 AM LINE CLEANER 05/03/2024 3:19 AM LINE CLEANER Troy Corley MD LAB BLOOD ORDERABLES Final Re sult Performing Organization Address [facility] Co de Phone Number [facility] [place] [address] * Folate (05/03/2024 2:33 AM LINE CLEANER) Folic acid 7.7 >=5.0 ng/mL Blood 05/03/2024 2:33 AM LINE CLEANER 05/03/2024 3:19 AM LINE CLEANER us Troy Corley MD LAB BLOOD ORDERABLES Final Re sult Performing Organization Address [facility] Co de Phone Number [facility] [place] [address] * Vitamin B12 (05/03/2024 2:33 AM LINE CLEANER) Pathologist [facility] Vitamin B12 703 230 - 1,250 pg/mL Blood 05/03/2024 2:33 AM LINE CLEANER 05/03/2024 3:19 AM LINE CLEANER us Troy Corley MD LAB BLOOD ORDERABLES Final Re sult Performing Organization Address [facility] de Phone Number [facility] [place] [address] * Creatine kinase (CK), total (05/03/2024 2:33 AM LINE CLEANER) [facility] CK 132 30 - 200 Units/L Blood 05/03/2024 2:33 AM LINE CLEANER 05/03/2024 3:19 AM LINE CLEANER us Troy Corley MD LAB BLOOD ORDERABLES Final Re sult Performing Organization Address [facility] [address] * (ABNORMAL) Comprehensive metabolic panel (05/03/2024 2:33 AM LINE CLEANER) [facility] Sodium 133(L) 135 - 145 mmol/L Potassium, pl 7.0(C) 3.3 - 4.9 mmol/L [facility] Chloride 91(L) 97 - 110 mmol/L [facility] CO2 14(L) 22 - 32 mmol/L [facility] Anion gap 28(C) 2 - 15 mmol/L [facility] BUN 77(H) 6 - 25 mg/dL [facility] Creatinine 12.32(H) 0.60 - 1.10 mg/dL [facility] Glucose 101 70 - 199 mg/dL [facility] Comment: Interpretive Data Fasting glucose >/= 126 [...] 2022. Calcium 9.3 8.5 - 10.3 mg/dL [facility] Bilirubin, total <0.2 0.1 - 1.2 mg/dL [facility] Protein, pl 5.1(L) 6.5 - 8.5 g/dL [facility] Albumin 2.8(L) 3.5 - 5.0 g/dL [facility] Alk phos 95 40 - 130 Units/L [facility] ALT 20 7 - 45 Units/L [facility] AST 19 10 - 45 Units/L [facility] Blood 05/03/2024 2:33 AM LINE CLEANER 05/03/2024 3:19 AM LINE CLEANER Troy Corley MD LAB BLOOD ORDERABLES Final Re sult [facility] [place] [address] * POCT glucose (05/03/2024 2:30 AM LINE CLEANER) [facility] Signature Glucose, POC 148 70 - 199 mg/dL Blood 05/03/2024 2:30 AM LINE CLEANER 05/03/2024 2:30 AM LINE CLEANER Troy Corley MD LAB POCT ORDERABLES - DEVICE Final Result [facility] Department [place] [address] * ECG 12 lead (05/03/2024 2:27 AM LINE CLEANER) Pathologist [facility] Ventricular Rate EKG/Min 88 BPM [facility] Atrial Rate 88 BPM [facility] SC-Interval (MSEC) 182 ms [facility] QRS-Interval (MSEC) 68 ms [facility] QT-Interval (MSEC) 344 ms [facility] QTc 416 ms [facility] P [place] 58 degrees [facility] R [place] 74 degrees [facility] T [place] 61 degrees [facility] Diagnosis Normal sinus rhythm Nonspecific ST abnormality Abnormal ECG No previous ECGs available Confirmed by HERNANDEZ ARNOLD M.D ([id number]) on 05/03/2024 11:18:58 AM [facility] 05/03/2024 2:27 AM LINE CLEANER 05/03/2024 11:18 AM LINE CLEANER us Troy Corley MD ECG ORDERABLES Final Result Performing Organization Address [facility] Co de Phone Number [facility] [facility] * Prepare RBC: 2 Units (05/03/2024 2:17 AM LINE CLEANER) Pathologist [facility] Product code [id number] Unit Number [id number] [facility] Product Blood Type OPOS [facility] Dispense Status RETURNED [facility] Product code [id number] [facility] Unit Number [id number] [facility] Product Blood Type OPOS [facility] Dispense Status PRESUMED TRANSFUSED [facility] Blood 05/03/2024 2:17 AM LINE CLEANER 05/03/2024 2:16 AM LINE CLEANER Narrative [facility] - 05/06/2024 12:05 AM LINE CLEANER Are special requirements needed? (All products are leukoreduced and CMV- safe)- >No Date required:-20240503 LRRBC # of [id number] Reasons:-Hgb <7 g/dL} Troy Corley MD BLOOD BANK PRODUCT ORDERABLES Final Result Performing Organization Address [facility] Co de Phone Number [facility] Department [place] [address] * POCT glucose (05/03/2024 1:47 AM LINE CLEANER) Glucose, POC 186 70 - 199 mg/dL Blood 05/03/2024 1:47 AM LINE CLEANER 05/03/2024 1:47 AM LINE CLEANER Troy Corley MD LAB POCT ORDERABLES - DEVICE Final Result Performing Organization Address [facility] de Phone Number [facility] Department [place] [address] * ECG 12-LEAD (05/03/2024 1:42 AM LINE CLEANER) Narrative [facility] C - 05/03/2024 1:42 AM LINE CLEANER Jed Saenz MD 05/03/2024 1:43 AM ECG [...] ECG ORDERABLES Final Result Performing Organization Address [facility] de Phone Number [facility] * Troponin I high-sensitivity 4-hour (05/03/2024 1:38 AM LINE CLEANER) Trop I hs 11 <=17 ng/L Comment: Interpretive Data For further hscTnI resources including the diagnostic algorithm and an aid in interpretation, copy and paste this link: https://bjhlab.testcatalog.org/show/hsTrop-1 Current Interpretive Data last revised 2019. Trop I hs delta -1 ng/L [facility] Trop I hs interp Insignificant [facility] Blood 05/03/2024 1:38 AM LINE CLEANER 05/03/2024 2:04 AM LINE CLEANER us Nikki Orlando NP LAB BLOOD ORDERABLES Final Result Performing Organization Address [facility] de Phone Number [facility] Department [place] [address] * Critical Result Callback Chemistry (05/03/2024 1:38 AM LINE CLEANER) Date Notified 20240503 Time Notified 234 [facility] TestName Potassium Plas [facility] Called/Read Back Jolynn [facility] Credentials RN [facility] Called By MILES [facility] Blood 05/03/2024 1:38 AM LINE CLEANER 05/03/2024 2:04 AM LINE CLEANER us Jed Saenz MD LAB BLOOD ORDERABLES Final Res ult Performing Organization Address [facility]/State/ZIP Co de Phone Number [facility] [place] [address] * (ABNORMAL) Potassium (05/03/2024 1:38 AM LINE CLEANER) Potassium, pl 7.2(C) 3.3 - 4.9 mmol/L Blood 05/03/2024 1:38 AM LINE CLEANER 05/03/2024 2:04 AM LINE CLEANER us Troy Corley MD LAB BLOOD [place] [address] * Critical Result Callback Chemistry (05/03/2024 12:39 AM LINE CLEANER) Date Notified 20240503 Time Notified 121 [facility] TestName Potassium Plas [facility] Called/Read Back Jed [facility] Credentials MD [facility] Called By MILES [facility] Blood 05/03/2024 12:3 9 AM LINE CLEANER 05/03/2024 12:50 AM LINE CLEANER us Nikki Orlando NP LAB BLOOD ORDERABLES Final Result Performing Organization Address City/[facility]/ZIP Co de Phone Number [facility] [place] [address] * aPTT (05/03/2024 12:39 AM LINE CLEANER) aPTT 29 28 - 38 sec Comment: Interpretive Data Heparin therapeutic range: 66.0 - 100.0 seconds. Range based on correlation with therapeutic heparin activity range of 0.3 - 0.7 Units/mL. Current interpretive data was last revised on 2022. Blood 05/03/2024 12:3 9 AM LINE CLEANER 05/03/2024 12:54 AM LINE CLEANER Quyen Whitman MD LAB BLOOD ORDERABLES Fin al Result Performing Organization Address [facility] Co de Phone Number [facility] [place] [address] * Protime-INR (05/03/2024 12:39 AM LINE CLEANER) PT 9.9 9.7 - 13.0 sec INR 0.92 0.90 - 1.20 [facility] Comment: Interpretive data Oral anticoagulant therapeutic ranges: Venous thromboembolism prophylaxis or treatment: 2.0-3.0 CARDIOLOGY Standard range: 2.0-3.0 High-intensity range: 2.5-3.5 Refer to indication-specific guidelines for appropriate target ranges for prosthetic heart valve replacement. Current interpretive data was last revised on 2019. Blood 05/03/2024 12:3 9 AM LINE CLEANER 05/03/2024 12:54 AM LINE CLEANER Quyen Whitman MD LAB BLOOD ORDERABLES Fin al Result Performing Organization Address [facility]/[place] [address] * (ABNORMAL) Potassium (05/03/2024 12:39 AM LINE CLEANER) Potassium, pl 6.9(C) 3.3 - 4.9 mmol/L Blood 05/03/2024 12:3 9 AM LINE CLEANER 05/03/2024 12:50 AM LINE CLEANER Nikki Orlando NP LAB BLOOD ORDERABLES Final Result Performing Organization Address [facility] Co de Phone Number [facility] [place] [address] * SC INSJ NON-TUNNELED CENTRAL VENOUS CATH AGE 5 YR/> (05/03/2024 12:26 AM LINE CLEANER) Narrative Ariadna Hutchins MD - 05/03/2024 12:26 AM LINE CLEANER Quyen Whitman MD 05/03/2024 12:28 AM Central Line Date/Time: 05/03/2024 12:26 AM Performed by: Quyen Whitman MD Authorized by: Ariadna Hutchins MD [place] Protocol: RN Notified of Procedure: yes Informed [...] vena cava Post-procedure details: Assessment: Patent vessel Ariadna Hutchins MD IN CLINIC/BEDSIDE ORDERABLES Final Result * (ABNORMAL) POCT creatinine (05/02/2024 11:37 PM LINE CLEANER) Creatinine POC 14.1(H) 0.6 - 1.1 mg/dL Blood 05/02/2024 11:3 7 PM LINE CLEANER 05/02/2024 11:37 PM LINE CLEANER Ariadna Hutchins MD LAB POCT ORDERABLES - DEVICE Final Result [facility] Department [place] [address] * (ABNORMAL) POCT glucose (05/02/2024 11:33 PM LINE CLEANER) Glucose, POC 257(H) 70 - 199 mg/dL Blood 05/02/2024 11:3 3 PM LINE CLEANER 05/02/2024 11:33 PM LINE CLEANER Ariadna Hutchins MD LAB POCT ORDERABLES - DEVICE Final Result Performing Organization Address [facility] de Phone Number [facility] Department [place] [address] * (ABNORMAL) POCT glucose (05/02/2024 11:29 PM LINE CLEANER) Glucose, POC 239(H) 70 - 199 mg/dL Blood 05/02/2024 11:2 9 PM LINE CLEANER 05/02/2024 11:29 PM LINE CLEANER Ariadna Hutchins MD LAB POCT ORDERABLES - DEVICE Final Result Performing Organization Address [facility] Phone Number [facility] Department [place] [address] * XR Chest 1 Vw Portable (05/02/2024 11:25 PM LINE CLEANER) Anatomical Region Laterality Modality Body, Chest N/A Computed Radiogr aphy 05/02/2024 11:5 5 PM LINE CLEANER Impressions 05/04/2024 7:54 AM LINE CLEANER There is no pulmonary consolidation, pleural effusion, [...] Zoraida Sullivan M.D. Narrative 05/04/2024 7:54 AM LINE CLEANER EXAMINATION: XR CHEST 1 VIEW HISTORY: Shortness [...] it. Electronically signed by: Zoraida Sullivan M.D. Ariadna Hutchins MD IMG XR PROCEDURES Final Resu lt * SC CRITICAL CARE ILL/INJURED PATIENT INIT 30-74 MIN (05/02/2024 11:11 PM LINE CLEANER) Narrative Ariadna Hutchins MD - 05/02/2024 11:11 PM LINE CLEANER Ariadna Hutchins MD 05/02/2024 11:11 PM Critical Care Performed by: Ariadna Hutchins MD Authorized by: Ariadna Hutchins MD Critical care provider statement: As [...] care medicine services to this patient. us Ariadna Hutchins MD IN CLINIC/BEDSIDE ORDERABLES Final Result * (ABNORMAL) Potassium, whole blood (05/02/2024 10:38 PM LINE CLEANER) Potassium, bld 7.2(C) 3.3 - 4.9 mmol/L Blood 05/02/2024 10:3 8 PM LINE CLEANER 05/02/2024 10:43 PM LINE CLEANER us Ariadna Hutchins MD LAB BLOOD ORDERABLES Final R esult Performing Organization Address City/[facility]/ZIP Co de Phone Number [facility] Department [place] [address] * Check Sample (05/02/2024 10:38 PM LINE CLEANER) Pathologist [facility] ABO Rh O Positive [facility] HC[facility] OTHER 05/02/2024 10:3 8 PM LINE CLEANER 05/02/2024 10:54 PM LINE CLEANER Katja Teague MD PhD LAB BLOOD ORDERA BLES Final Result Performing Organization Address City/[facility]/ZIP Co de Phone Number [facility] Department [place] [address] [facility] * Critical Result Callback Chemistry (05/02/2024 10:38 PM LINE CLEANER) Date Notified 20240502 Time Notified 2302 [facility] TestName Potassium WB [facility] Called/Read Back Quyen ANDREWS Credentials MD [facility] Called By hyacinth ANDRE[facility] Blood 05/02/2024 10:3 8 PM LINE CLEANER 05/02/2024 10:43 PM LINE CLEANER us Ariadna Hutchins MD LAB BLOOD ORDERABLES Final R esult Performing Organization Address City/[facility]/ZIP Co de Phone Number [facility] [place] [address] * (ABNORMAL) Potassium, whole blood (05/02/2024 10:23 PM LINE CLEANER) Potassium, bld 7.2(C) 3.3 - 4.9 mmol/L Blood 05/02/2024 10:2 3 PM LINE CLEANER 05/02/2024 10:43 PM LINE CLEANER Quyen Whitman MD LAB BLOOD ORDERABLES Fin al Result Performing Organization Address City/[facility] Co de Phone Number [facility] [place] [address] * Critical Result Callback Chemistry (05/02/2024 10:23 PM LINE CLEANER) Date Notified 20240502 Time Notified 2302 [facility] TestName Potassium [facility] Called/Read Back Quyen MOORE Credentials MD [facility] Called By hyacinth MOORE Blood 05/02/2024 10:2 3 PM LINE CLEANER 05/02/2024 10:43 PM LINE CLEANER Quyen Whitman MD LAB BLOOD ORDERABLES Fin al Result Performing Organization Address City/[facility]/ZIP Co de Phone Number [facility] [place] [address] * POCT glucose (05/02/2024 9:49 PM LINE CLEANER) Glucose, POC 158 70 - 199 mg/dL Blood 05/02/2024 9:49 PM LINE CLEANER 05/02/2024 9:49 PM LINE CLEANER us Ariadna Hutchins MD LAB POCT ORDERABLES - DEVICE Final Result Performing Organization Address City/[facility]/ZIP Co de Phone Number [facility] Department [place] [address] * Blood culture Blood Antecubital, right (05/02/2024 9:46 PM LINE CLEANER) Report Final Report: No growth Blood (Antecubital, right) 05/02/2024 9:46 PM LINE CLEANER 05/02/2024 9:58 PM LINE CLEANER Narrative [facility] - 05/07/2024 3:11 PM LINE CLEANER From a different site than #1. Draw [...] performance characteristics have been verified by the [facility] Microbiology Laboratory. For questions about this culture, contact the Microbiology Laboratory at [phone]. Interpretive data was last revised on 24. us Nikki Orlando NP LAB MICROBIOLOGY - G ENERAL ORDERABLES Final Result Performing Organization Address City/[facility]/ZIP Co de Phone Number [facility] Department [place] [address] * Blood culture Blood Antecubital, left (05/02/2024 9:46 PM LINE CLEANER) Report Final Report: No growth Blood (Antecubital, left) 05/02/2024 9:46 PM LINE CLEANER 05/02/2024 9:57 PM LINE CLEANER Narrative [facility] - 05/07/2024 3:11 PM LINE CLEANER Draw Blood cultures before administration of Antibiotics [...] performance characteristics have been verified by the [facility] Microbiology Laboratory. For questions about this culture, contact the Microbiology Laboratory at [phone]. Interpretive data was last revised on 24. Nikki Orlando NP LAB MICROBIOLOGY - G ENERAL ORDERABLES Final Result [facility] Department [place] [address] * (ABNORMAL) ECG 12-LEAD (05/02/2024 9:18 PM LINE CLEANER) Narrative [facility] - 05/02/2024 9:18 PM LINE CLEANER Yadiel Nash MD 05/02/2024 9:19 PM ECG [...] ECG: Unavailable Interpretation: Interpretation: abnormal Nikki Orlando BORE MILL OPERATOR FOR PLASTIC ECG ORDERABLES Corine l Result Performing Organization Address City/[facility] Co de Phone Number [facility] * Troponin I high-sensitivity series (baseline, 2hr, 4hr, 6hr) (05/02/2024 9:15 PM LINE CLEANER) Trop I hs 12 <=17 ng/L Comment: Interpretive Data For further hscTnI resources including the diagnostic algorithm and an aid in interpretation, copy and paste this link: https://bjhlab.testcatalog.org/show/hsTrop-1 Current Interpretive Data last revised 2019. Blood 05/02/2024 9:15 PM LINE CLEANER 05/02/2024 9:26 PM LINE CLEANER us Nikki Orlando BORE MILL OPERATOR [employer] PLAST[employer] LAB BLOOD ORDERABLES Final Result Performing Organization Address [facility] de Phone Number [facility] One [facility] Department [place] [address] * Critical Result Callback Chemistry (05/02/2024 9:15 PM LINE CLEANER) Date Notified 20240502 Time Notified 2203 [facility] TestName Potassium Plas [facility] Called/Read Back Quyen ANDREWS Credentials MD [facility] Called By CANDIDA MOORE Blood 05/02/2024 9:15 PM LINE CLEANER 05/02/2024 9:26 PM LINE CLEANER Nikki Orlando NP LAB BLOOD ORDERABLES Final Result Performing Organization Address City/[facility]/ZIP Co de Phone Number [facility] [place] [address] * Critical Result Callback Chemistry (05/02/2024 9:15 PM LINE CLEANER) Date Notified 20240502 Time Notified 2132 [facility] TestName HCO3 Heriberto (Calc) [facility] Called/Read Back Quyen [facility] Credentials MD [facility] Called By MARION [facility] Blood 05/02/2024 9:15 PM LINE CLEANER 05/02/2024 9:25 PM LINE CLEANER Nikki Orlando NP LAB BLOOD ORDERABLES Final Result Performing Organization Address City/[facility]/ZIP Co de Phone Number [facility] [place] [address] * Thyroid Function Preston (05/02/2024 9:15 PM LINE CLEANER) TSH 2.92 0.30 - 4.20 mcIUnit/mL Blood 05/02/2024 9:15 PM LINE CLEANER 05/02/2024 9:26 PM LINE CLEANER us Ariadna Hutchins MD LAB BLOOD ORDERABLES Final R esult Performing Organization Address City/[facility]/ZIP Co de Phone Number [facility] Department [place] [address] * Type and screen (05/02/2024 9:15 PM LINE CLEANER) ABO Rh O Positive Zackary, indirect Negative [facility] Blood 05/02/2024 9:15 PM LINE CLEANER 05/02/2024 9:33 PM LINE CLEANER Narrative [facility] - 05/02/2024 10:20 PM LINE CLEANER Has the patient had Daratumumab or Isatuximab in the past 6 months?->Unknown Nikki Orlando NP LAB BLOOD BANK TEST ORDERABLES Final Result [facility] [employer] [place], [place] [id number] * (ABNORMAL) Potassium (05/02/2024 9:15 PM LINE CLEANER) [facility] Potassium, pl 8.2(C) 3.3 - 4.9 mmol/L Blood 05/02/2024 9:15 PM LINE CLEANER 05/02/2024 9:26 PM LINE CLEANER Nikki Orlando NP LAB BLOOD ORDERABLES Final Result Performing Organization Address [facility] Co de Phone Number [facility] [place] [address] * (ABNORMAL) Blood gas, venous (05/02/2024 9:15 PM LINE CLEANER) [facility] pH, Venous 7.24(L) 7.32 - 7.43 PCO2, Venous 23(L) 40 - 50 mmHg [facility] PO2, Venous 44 mmHg [facility] Comment: Interpretive Data No Reference Range Established Current Interpretive Data was last revised on 2017. HCO3 Venous, Calculated 10(C) 20 - 30 mmol/L [facility] BE, venous -16 mmol/L [facility] Comment: Interpretive Data No Reference Range Established Current Interpretive Data was last revised on 2017. Blood 05/02/2024 9:15 PM LINE CLEANER 05/02/2024 9:25 PM LINE CLEANER Nikki Orlando NP LAB BLOOD ORDERABLES Final Result Performing Organization Address City/[facility]/[place] [address] * (ABNORMAL) eGFR (05/02/2024 8:01 PM LINE CLEANER) [facility] eGFR 3(L) >=60 mL/min/1. 73 m2 Comment: [...] last reviewed 2021. Blood 05/02/2024 8:01 PM LINE CLEANER 05/02/2024 8:10 PM LINE CLEANER us Nikki Orlando NP LAB BLOOD ORDERABLES Final Result [facility] Department [place] [address] * (ABNORMAL) Differential, auto (05/02/2024 8:01 PM LINE CLEANER) Neutrophil abs 13.2(H) 1.5 - 6.5 K/cumm Imm gran abs 0.8(H) 0.0 - 0.1 K/cumm [facility] Lymphocyte abs 1.3 0.8 - 3.3 K/cumm [facility] Monocyte abs 1.0(H) 0.2 - 0.8 K/cumm [facility] Eosinophil abs 0.0 0.0 - 0.5 K/cumm [facility] Basophil abs 0.0 0.0 - 0.1 K/cumm [facility] Neutrophil pct 80.8 % [facility] Comment: Interpretive Data Percent cell count reference ranges are not reported, since discordance with absolute values may lead to misinterpretation of CBC data. Current Interpretive Data was last revised on 2017. Imm gran pct 5.0 % [facility] Comment: Interpretive Data Percent cell count reference ranges are not reported, since discordance with absolute values may lead to misinterpretation of CBC data. Current Interpretive Data was last revised on 2017. Lymphocyte pct 7.8 % [facility] Comment: Interpretive Data Percent cell count reference ranges are not reported, since discordance with absolute values may lead to misinterpretation of CBC data. Current Interpretive Data was last revised on 2017. Monocyte pct 6.3 % [facility] Comment: Interpretive Data Percent cell count reference ranges are not reported, since discordance with absolute values may lead to misinterpretation of CBC data. Current Interpretive Data was last revised on 2017. Eosinophil pct 0.0 % [facility] Comment: Interpretive Data Percent cell count reference ranges are not reported, since discordance with absolute values may lead to misinterpretation of CBC data. Current Interpretive Data was last revised on 2017. Basophil pct 0.1 % [facility] Comment: Interpretive Data Percent cell count reference ranges are not reported, since discordance with absolute values may lead to misinterpretation of CBC data. Current Interpretive Data was last revised on 2017. Blood 05/02/2024 8:01 PM LINE CLEANER 05/02/2024 8:09 PM LINE CLEANER us Nikki rOlando NP LAB BLOOD ORDERABLES Final Result [facility] Department [place] [address] * Critical Result Callback Chemistry (05/02/2024 8:01 PM LINE CLEANER) Date Notified 20240502 Time Notified 2038 [facility] TestName Potassium Plas and Anion Gap [facility] Called/Read Back Nikki MOORE Credentials BORE MILL OPERATOR FOR PLASTIC [facility] Called By AW [facility] Blood 05/02/2024 8:01 PM LINE CLEANER 05/02/2024 8:10 PM LINE CLEANER Nikki Orlando B[employer] M[employer] OPER[employer] LAB BLOOD ORDERABLES Final Result Performing Organization Address City/[facility]/ZIP Co de Phone Number [facility] Department [place] [address] * (ABNORMAL) Iron profile w/ IBC (05/02/2024 8:01 PM LINE CLEANER) [facility] Iron 193(H) 35 - 145 mcg/dL TIBC 237(L) 250 - 400 mcg/dL [facility] Transferrin saturation 81(H) 20 - 50 % [facility] Blood 05/02/2024 8:01 PM LINE CLEANER 05/02/2024 8:10 PM LINE CLEANER Nikki Orlando B[employer] MILL OPERATOR [employer] LAB BLOOD ORDERABLES Final Result Performing Organization Address [facility] Co de Phone Number [facility] Department [place] [address] * (ABNORMAL) CBC with auto differential (05/02/2024 8:01 PM LINE CLEANER) [facility] WBC 16.3(H) 3.8 - 9.9 K/cumm Hgb 5.7(C) 11.9 - 15.5 g/dL [facility] Comment:Critical result call ed to and read back by PEDRO VALDIVIA RN on 05 02 2024 at 2021 to Caty Rincon. Hct 18.1(L) 35.6 - 45.5 % [facility] Plt 367 150 - 400 K/cumm [facility] MPV 9.4 9.1 - 12.3 fL [facility] RBC 1.93(L) 3.90 - 5.20 M/cumm [facility] MCV 93.8 81.3 - 96.4 fL [facility] MCH 29.5 27.1 - 33.3 pg [facility] MCHC 31.5(L) 32.3 - 35.7 g/dL [facility] RDW CV 13.2 11.1 - 14.9 % [facility] RDW SD 45.5 35.7 - 48.1 fL [facility] NRBC abs 0.04(H) 0.00 - 0.01 K/cumm [facility] Blood 05/02/2024 8:01 PM LINE CLEANER 05/02/2024 8:09 PM LINE CLEANER Nikki Orlando B[employer] M[employer] OPERATOR [employer] PLAST[employer] LAB BLOOD ORDERABLES Final Result Performing Organization Address City/[facility] Co de Phone Number [facility] Department [place] [address] * (ABNORMAL) Magnesium (05/02/2024 8:01 PM LINE CLEANER) [facility] Magnesium 2.9(H) 1.4 - 2.5 mg/dL Blood 05/02/2024 8:01 PM LINE CLEANER 05/02/2024 8:10 PM LINE CLEANER Nikki Orlando BORE MILL OPERATOR [employer] PLAST[employer] LAB BLOOD ORDERABLES Final Result Performing Organization Address [facility] Co de Phone Number [facility] Department [place] [address] * (ABNORMAL) Ferritin (05/02/2024 8:01 PM LINE CLEANER) [facility] Ferritin 320(H) 13 - 150 ng/mL Blood 05/02/2024 8:01 PM LINE CLEANER 05/02/2024 8:10 PM LINE CLEANER Nikki Orlando B[employer] MILL OPERATOR [employer] PLAST[employer] LAB BLOOD ORDERABLES Final Result Performing Organization Address [facility] Co de Phone Number [facility] Department [place] [address] * (ABNORMAL) Comprehensive metabolic panel (05/02/2024 8:01 PM LINE CLEANER) Pathologist [facility] Sodium 131(L) 135 - 145 mmol/L Potassium, pl 8.2(C) 3.3 - 4.9 mmol/L [facility] Chloride 89(L) 97 - 110 mmol/L [facility] CO2 13(L) 22 - 32 mmol/L [facility] Anion gap 29(C) 2 - 15 mmol/L [facility] BUN 83(H) 6 - 25 mg/dL [facility] Creatinine 13.72(H) 0.60 - 1.10 mg/dL [facility] Glucose 115 70 - 199 mg/dL [facility] Comment: Interpretive Data Fasting glucose >/= 126 [...] 2022. Calcium 9.4 8.5 - 10.3 mg/dL [facility] Bilirubin, total <0.2 0.1 - 1.2 mg/dL [facility] Protein, pl 5.7(L) 6.5 - 8.5 g/dL [facility] Albumin 3.1(L) 3.5 - 5.0 g/dL [facility] Alk phos 110 40 - 130 Units/L [facility] ALT 20 7 - 45 Units/L [facility] AST 20 10 - 45 Units/L [facility] Blood 05/02/2024 8:01 PM LINE CLEANER 05/02/2024 8:10 PM LINE CLEANER us Nikki Orlando NP LAB BLOOD ORDERABLES Final Result [facility] [place] [address] from Last 3 Months
--- OUTSIDE RECORDS SUMMARY | 2024-07-25 06:55 | XMS_ITS | Data Portability ---
Author Organization [facility] [place] Address [address] [place] [address] Assessment Encounter Date Assessment Date Assessment LastModified by Organization Details LastModified Time 02/09/2024 02/09/2024 Annual gynecological exam performed. Patient will come back in a year unless there are new symptoms. [email or web address] Not available 02/09/2024 14:35:25 Plan of Treatment Reminders Order Date Submit Date Provider Last Modified By Organization Details Last Modified Time Details Appointments None recorded. Lab pap, IG + HR HPV - HPV regardless but if HPV is positive need subtyping 16,18/45 2023 024 [facility] (Lab), [address], [place], [address], 4 15:50:03 Referral None recorded. Procedures None recorded. Surgeries None recorded. Imaging MAMMO, screening, digital, bilateral 2023 024 [place] [facility] (Radiology), [address], [place], [address], 4 04:05:32 Medication Orders None recorded. Patient TargetsNo targets recorded. Patient InstructionsNo instructions recorded. Reason for Referral None Reported. Procedures Surgical History Date Name Laterality Status Provider Name and Address Organization Details Recorded Time 019 Colonoscopy completed Ailyn Mendieta [facility] 02/09/2024 14:46:28 011 Endometrial Ablation completed GALLO LONGORIA NP [address], [place], [address], [facility] 02/09/2024 14:59:00 Cholecystectomy completed Ailyn Mendieta [facility] 02/09/2024 14:35:42 Imaging Results None recorded. Procedure Notes None recorded. Medical Equipment None Reported. Medications Name Sig Start Date Stop Date Status Note LastModified by Organization Details LastModified Time atorvastati n 40 mg tablet TAKE 1 TABLET BY MOUTH EVERY DAY active Not Available Not Available No t Available benzonatate 200 mg capsule TAKE 1 CAPSULE BY MOUTH THREE TIMES DAILY 02/08 completed Not Available Not Available Not Available gabapentin 250 mg/5 mL oral solution TAKE 1 ML BY MOUTH EVERY NIGHT AT BEDTIME 02/08 completed Not Available Not Available Not Available amiloride 5 mg tablet TAKE 1 TABLET BY MOUTH DAILY 02/08 completed Not Available Not Available Not Available potassium chloride ER 20 mEq tablet,exte nded release(par t/cryst) TAKE 2 TABLET BY MOUTH TWICE DAILY 02/08 completed Not Available Not Available Not Available montelukast 10 mg tablet TAKE 1 TABLET BY MOUTH EVERY DAY active Not Available Not Available No t Available hydroxyzine HCl 25 mg tablet TAKE 1 TO 2 TABLETS BY MOUTH THREE TIMES DAILY NEEDED 02/08 completed Not Available Not Available Not Available gabapentin 100 mg capsule TAKE 1 CAPSULE BY MOUTH EVERY NIGHT AT BEDTIME 02/08 completed Not Available Not Available Not Available methylpredn isolone 4 mg tablets in a dose pack FOLLOW PACKAGE DIRECTION S 02/08 completed Not Available Not Available Not Available albuterol sulfate HFA 90 mcg/actuati on aerosol inhaler INHALE 2 PUFFS BY MOUTH 4 TIMES DAILY NEEDED active Not Available Not Available No t Available amoxicillin 875 mg-potassiu m clavulanate 125 mg tablet TAKE 1 TABLET BY MOUTH TWICE DAILY FOR 7 DAYS 02/08 completed Not Available Not Available Not Available nitrofurant oin monohydrate /macrocryst als 100 mg capsule TAKE 1 CAPSULE BY MOUTH TWICE DAILY FOR 5 DAYS 02/08 completed Not Available Not Available Not Available acesulfame potassium (bulk) 02/08 completed Not Available Not Available Not Available potassium chloride ER 20 mEq tablet,exte nded release TAKE 1 TABLET BY MOUTH TWICE DAILY active Not Available Not Available No t Available Trelegy Ellipta 200 mcg-62.5 mcg-25 mcg powder for inhalation INHALE 1 PUFF BY MOUTH EVERY DAY active Not Available Not Available No t Available Vitals Date Recorded Body height Body mass index (BMI) Body weight Systolic blood pressure Diastolic blood pressure Provider Name and Address Organization Details Last Updated DateTime 02/09/2024 152.4 cm 21.3 kg/m2 64579.57 g 110 mm[Hg] 72 mm[Hg] Ailyn Mendieta [facility] 14:39:09 Social History Question Answer Notes LastModified by Organizat ion Details LastModified Time Tobacco Smoking Status Former Smoker Ailyn Mendieta [facility] 02/09/2024 14:44:19 Do You Have An Advance Directive? No [email or web address] Information not available 02/09/2024 What Is Your Level Of Alcohol Consumption? None [email or web address] Information not available 02/09/2024 Are You Blind Or Do You Have Difficulty Seeing? No [email or web address] Information not available 02/09/2024 In The 14 Days Before Symptom Onset, Have You Had Close Contact With A Laboratory-confir med COVID-19 While That Case Was Ill? No [email or web address] Information not available 02/09/2024 In The 14 Days Before Symptom Onset, Have You Had Close Contact With A Person Who Is Under Investigation For COVID-19 While That Person Was Ill? No [email or web address] Information not available 02/09/2024 Have You Been To An Area Known To Be High Risk For COVID-19? No [email or web address] Information not available 02/09/2024 Are You Currently Employed? Yes [email or web address] Information not available 02/09/2024 Are You Deaf Or Do You Have Serious Difficulty Hearing? No [email or web address] Information not available 02/09/2024 What Type Of Diet Are You Following? REGULAR [email or web address] Information not available 02/09/2024 What Is The Highest Grade Or Level Of School You Have Completed Or The Highest Degree You Have Received? 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 No [email or web address] Information not available 02/09/2024 Do You Use Your Seat Belt Or Car Seat Routinely? Yes [email or web address] Information not available 02/09/2024 Are You Sexually Active? No [email or web address] Information not available 02/09/2024 Do You Have Smoke And Carbon Monoxide Detectors In Your Home? No Information not available 02/09/2024 Do You Feel Stressed (tense, Restless, Nervous, Or Anxious, Or Unable To Sleep At Night)? [id number] [email or web address] Information not available 02/09/2024 Do You Use Sunscreen Routinely? No [email or web address] Information not available 02/09/2024 Sex: Unknown Functional Status Question Answer Note LastModified by Organizat ion Details LastModified Time Do you have difficulty walking or climbing stairs? No [email or web address] Information not available 02/09/2024 Are you able to walk? YESWOREST [email or web address] Information not available 02/09/2024 Are you able to care for yourself? Yes [email or web address] Information not available 02/09/2024 Do you have difficulty dressing or bathing? No [email or web address] Information not available 02/09/2024 What is your exercise level? None Information not available 02/09/2024 Mental Status None recorded. Family History Relationship Description Onset Age of this Age Resolved Age Notes LastModified by Organization Details LastModified Time Unspecified Relation Family history unknown [email or web address] Not available 2023 14:35:42 Maternal Grandmother Diabetes mellitus [email or web address] Not available 2023 14:44:06 Medical History Condition Response Anemia Y Kidney or Bladder Problems Y Gynecological History Statement/Question Response Date of Last Mammogram Date of Last Colonoscopy Sexually Active? N Date of Last Pap Smear Age at First Child 32 LMP Unknown Obstetrics History GPAL:G 2 P 2 0 0 2 Type Value Full Term 2 Living 2 Total 2 Past Encounters Encounter ID Performer Location Encounter Start Date Encounter Closed Date Diagnosis/Indication Diagnosis SNOMED-CT Code Diagnosis ICD10 Code Diagnosis Note [id number] Davis Leach MD [place] [address] [address] 02/09/2024 14:29:41 02/09/2024 15:14:00 Gynecologic examination 56273463 Z01.419 Annual gynecologi kristian exam performed. Patient will come back in a year unless there are new symptoms. Suggest Calcium with Vitamin D if not eating in diet. Patient advised to get annual flu shot. Recommend yearly physicals and perform monthly breast exams. Genetic testing is available for patients with family history of cancer. Engage in safe sexual practices, use condoms. Encouraged to have daily exercise. Avoid tobacco and illicit drugs, moderation of alcohol. If BMI greater than 25 dietary consult advised. If you have any questions please call or email. mammogram- DUE; order given, pt to schedule colon cancer screening - UTD PCP DEXA scan- PCP Pap smear- pap w/ HPV collected today laboratory evaluation - PCP STI testing - declined Screening mammography 24 177002 Z12.31 Health Concerns Section Related Observation LastModified by Organization Detai ls LastModified Time None Recorded Concern Status LastModified by Organization Details LastModified Time None Recorded Advance Directives Directive N: Payers Encounter Date Sequence Insurance Name Policy Number Policy Lacy Covered Member ID Lacy Member ID Guarantor Name 02/09/2024 1 [facility]: (PPO) [id number] Darline Parra [id number] Darline Parra Notes Date Note Type Note Provider Name and Address Organization Details Recorded Time 02/09/2024 text/html Annual Floral Designer Post-MenopausalRep orted bypatient.Menopaus al Symptoms:no menopausal symptoms; normal vaginal lubrication Vaginal Bleeding:history of menopause having occurred; no history of post menopausal bleeding Urinary Symptoms:no hematuria; no incontinence; no nocturia; no urinary frequency Vulva:no genital lesion; no vulvar atrophy Vagina:normal vaginal discharge; no vaginal atrophy Breast:no breast lump; no nipple discharge; no breast pain Sexual Complaints:no sexual complaints Psychological Symptoms:no depression; no anxiety Preventive Measures:encourage regular mammograms starting age 40; encourage self breast examination; encourage regular exercise; encourage no tobacco use; needs to schedule mammogram New patient presents to establish care.Patient states that she is on kidney transplant list d/t kidney insufficiency; denies needing to be on dialysis. Patient needs updated pap smear and mammogram.No concerns today.Hx endometrial ablation in 2010. Ailyn Mendieta [facility] 02/09/2024 15:41:24 OBGyn Episode Ob Episode Information Episode Created Date Number of Fetuses Patient Bloodtype Patient rh Status Prepregnancy Weight lbs Domestic Partner Domestic Partner Phone Father Name Ore Miner Status 02/09/20 24 1 CLOSED Fetus Data First Name Last Name Admitted to NICU Weight (g) Sex Living Outcome Pediatric Complications Fetus ID Race Codes Race Delivery Type 3713.55 7704 M Full Term [id number] Vaginal Delivery Trae Calculation Initial Trae Date Initial Exam Date Initial Exam Provider Initial Ultrasound Date Last Menstrual Period Date Ultra Sound Weeks Gestation 0 Eighteen To Twenty Week Trae Update Ultra Sound Date Fundal Height At Umbil Quickening Date Ultra Sound Latest Weeks Gestation Final Trae Confirmed By Final Trae Confirmed Date Final Trae Date Ultra Sound Latest Days Gestation 0 0 Menstrual History Last Menstrual Date Menses Monthly On Bcp Conception Prior Menses Frequency Hcg Plus Date Menarche Onset Age Delivery Information Delivery Date Delivery Type Labor Anesthesia Weeks Gestation Incision Type Labor Labor Length Hrs Delivered By Post Complications Tubal Sterilization Discharge Date Comments 8 40 Discharge Information Feeding Method Contraceptive Method Maternal HG B and HCT Levels Ob Episode Information Episode Created Date Number of Fetuses Patient Bloodtype Patient rh Status Prepregnancy Weight lbs Domestic Partner Domestic Partner Phone Father Name Ore Miner Status 02/09/20 24 1 CLOSED Fetus Data First Name Last Name Admitted to NICU Weight (g) Sex Living Outcome Pediatric Complications Fetus ID Race Codes Race Delivery Type 3798.83 3 M Prematur e [id number] Trae Calculation Initial Trae Date Initial Exam Date Initial Exam Provider Initial Ultrasound Date Last Menstrual Period Date Ultra Sound Weeks Gestation 0 Eighteen To Twenty Week Trae Update Ultra Sound Date Fundal Height At Umbil Quickening Date Ultra Sound Latest Weeks Gestation Final Trae Confirmed By Final Trae Confirmed Date Final Trae Date Ultra Sound Latest Days Gestation 0 0 Menstrual History Last Menstrual Date Menses Monthly On Bcp Conception Prior Menses Frequency Hcg Plus Date Menarche Onset Age Delivery Information Delivery Date Delivery Type Labor Anesthesia Weeks Gestation Incision Type Labor Labor Length Hrs Delivered By Post Complications Tubal Sterilization Discharge Date Comments 2 36 Discharge Information Feeding Method Contraceptive Method Maternal HG B and HCT Levels
--- OUTSIDE RECORDS SUMMARY | 2024-07-25 06:55 | XMS_ITS | Encounter Summary ---
Author Organization [facility] Address [address] [place] [address] Care Team Providers Care Diamond Cleaver Name Role Phone León Varela MD Primary Care Provider [phone] Encounter Details Date Type Department Care Team (Late st Contact Info) Description 05/17/2019 Lab Requisition [facility] DermPath Lab [address] [facility] [address] [place] [address] Disha Gutierrez MD [address] [facility] [address] [place] [address] Social History Tobacco Use Types Packs/Day Years Used Date Smoking Tobacco: Never Assessed Comments Unknown Sex and Gender Information Value Date Recorded Sex Assigned at Not on file Legal Sex Female 5:46 PM BELTING INSPECTOR Gender Identity Not on file Sexual Orientation Not on file documented as of this encounter Plan of Treatment Not on file documented as of this encounter Procedures Procedure Name Priority Date/Time Associated Diagnosis Comments DERMATOPATHOLOGY Routine 05/16/2019 12:0 0 AM BELTING INSPECTOR documented in this encounter Results * DERMATOPATHOLOGY (05/16/2019 12:00 AM BELTING INSPECTOR) Case Report Dermatopathology Report Case: [id number] Authorizing Provider: Disha Gutierrez MD Collected: 05/16/2019 12:00 AM Ordering Location: [facility] Lab Received: 05/17/2019 10:05 AM Pathologist: Emely Burt MD Specimens: A) - Skin, left hand B) - Skin, left 3rd finger 0 6:09 PM BELTING INSPECTOR DERMATOPATHOLOGY LABORATORY Final Diagnosis Specimen A. SKIN, left hand: HYPERPLASTIC (HYPERTROPHIC) ACTINIC KERATOSIS (L57.0) Specimen B. SKIN, left 3rd finger: SQUAMOUS CELL CARCINOMA IN SITU, PRESENT AT THE BASE OF THE SPECIMEN (D04.62) (see microscopic description and comment) 0 6:09 PM [facility] DERMATOPATHOLOGY LABORATORY Clinical History A-B: R/O SCC, painful pink papules. 0 6:09 PM [facility] DERMATOPATHOLOGY LABORATORY Gross Description Specimen A: Received is one formalin filled container labeled with the patient's name and designated left hand. The specimen consists of a shave measuring 6o3d0rg. Jar 0. Specimen B: Received is one formalin filled container labeled with the patient's name and designated left 3rd finger. The specimen consists of a shave measuring [id number]. Jar 0. 0 6:09 PM [facility] DERMATOPATHOLOGY LABORATORY Microscopic Description Specimen A. SKIN, left hand: There is hyperkeratosis alternating with parakeratosis. There is epidermal hyperplasia with disorderly maturation of keratinocytes with nuclear pleomorphism confined to the lower half of the epidermis. Specimen B. SKIN, left 3rd finger: The epidermis shows parakeratosis, full thickness disorderly maturation of keratinocytes and dyskeratotic cells. The lesion extends to the base of the biopsy. COMMENT: An invasive squamous cell carcinoma cannot be ruled out. 0 6:09 PM [facility] DERMATOPATHOLOGY LABORATORY Disclaimer An external and internal positive and negative controls are appropriate for the histochemical, immunohistochemical and immunofluorescence stain(s) in this case (if any), except where stated explicitly. The performance characteristics of the stain(s) cited in this report were developed and its performance characteristic determined by the Dermatopathology Laboratory at [facility], directed by Dr. Cole Gonzáles. These tests need not be, and therefore are not, approved by the [place] Food and Drug Administration. The tests are used for clinical purposes. Billing Codes Specimen Charges Stain Charges 19996 57015 1 1 0 6:09 PM [facility] DERMATOPATHOLOGY LABORATORY Embedded Images 0 6:09 PM [facility] DERMATOPATHOLOGY LABORATORY Pathology/Cytology TISSUE SPECIMEN FROM SKIN / Unknown 05/16/2019 05/17/2019 10:05 AM BELTING INSPECTOR Miscellaneous samples (specimen) TISSUE SPECIMEN FROM SKIN / Unknown 05/16/2019 05/17/2019 10:05 AM BELTING INSPECTOR Disha Gutierrez MD LAB - PATHOLOGY/CYTOLOGY ORD ERABLES Final Result DERMATOPATHOLOGY LABORATORY [facility] - Department of Dermatology [address] [place] [address], [address] Floor Lab [address] [phone] documented in this encounter Visit Diagnoses Not on filedocumented in this encounter Care Teams Diamond Cleaver Relationship Specialty Start Date End Date León Varela MD [facility] [place] [address] PCP - General 04/29/14 documented as of this encounter
--- OUTSIDE RECORDS SUMMARY | 2024-07-25 06:55 | XMS_ITS | CONTINUITY OF CARE DOCUMENT ---
Author Name yeny saini Address Unknown Organization [facility] Address [address] [place] [address] Phone [phone] Care Team Providers Care Gaming Table Operator Name Role Phone Sven KING, Charlie Unavailable [phone] FILI MALDONADO MD Unavailable INSURANCE PROVIDERS Payer name Policy type / Coverage type [place] [employer] party ID [facility] [id number]
--- OUTSIDE RECORDS SUMMARY | 2024-07-25 06:55 | XMS_ITS | Encounter Summary ---
Author Organization [facility] Address [address] [place] [address] Care Team Providers Care Club Steward Name Role Phone León Varela MD Primary Care Provider [phone] Encounter Details Date Type Department Care Team (Late st Contact Info) Description 02/12/2024 Lab Requisition [facility] - DermPath Lab [address] [facility] [place] [address] Savita Martini PA [address] [place] [address] Social History Tobacco Use Types Packs/Day Years Used Date Smoking Tobacco: Never Assessed Comments Unknown Sex and Gender Information Value Date Recorded Sex Assigned at Not on file Legal Sex Female 5:46 PM TOOLING ENGINEER Gender Identity Not on file Sexual Orientation Not on file documented as of this encounter Plan of Treatment Not on file documented as of this encounter Procedures Procedure Name Priority Date/Time Associated Diagnosis Comments DERMATOPATHOLOGY Routine 02/12/2024 2:00 PM TOOLING ENGINEER documented in this encounter Results * DERMATOPATHOLOGY (02/12/2024 2:00 PM TOOLING ENGINEER) Case Report Dermatopathology Report Case: [id number] Authorizing Provider: Savita Martini PA Collected: 02/12/2024 02:00 PM Ordering Location: [facility] Physician [facility] - Received: 02/13/2024 12:36 PM DermPath Lab Pathologist: Key Johnson MD Specimen: Skin, left 4th finger 11:10 AM TOOLING ENGINEER DERMATOPATHOLOGY LABORATORY Final Diagnosis Specimen A. SKIN, left 4th finger: SQUAMOUS CELL CARCINOMA IN SITU, ACANTHOLYTIC, PRESENT AT THE BASE OF THE SPECIMEN (D04.62) (see microscopic description and comment) OVERLYING CUTANEOUS HORN (L85.8) 4 11:10 AM [facility] DERMATOPATHOLOGY LABORATORY Clinical History HAK vs SCC 4 11:10 AM [facility] DERMATOPATHOLOGY LABORATORY Gross Description Specimen A: Received is one formalin filled container labeled with the patient's name and designated left 4th finger. The specimen consists of a shave biopsy measuring 6x4x1 mm. Jar 0. 11:10 AM [facility] DERMATOPATHOLOGY LABORATORY Microscopic Description Specimen A. SKIN, left 4th finger: The epidermis shows parakeratosis, full thickness disorderly maturation of keratinocytes, mitoses at different levels, and dyskeratotic cells. The lesion extends to the base of the biopsy. Focally there is a suprabasilar cleft with acantholytic cells. There is a column of marked compact hyperkeratosis. COMMENT: An invasive squamous cell carcinoma cannot be ruled out. 11:10 AM [facility] DERMATOPATHOLOGY LABORATORY Disclaimer An external and internal positive and negative controls are appropriate for the histochemical, immunohistochemical and immunofluorescence stain(s) in this case (if any), except where stated explicitly. The performance characteristics of the stain(s) cited in this report were developed and its performance characteristic determined by the Dermatopathology Laboratory at [facility], directed by Dr. Cole Gonzáles. These tests need not be, and therefore are not, approved by the [place] Food and Drug Administration. The tests are used for clinical purposes. Billing Codes Specimen Charges Stain Charges 41676 1 4 11:10 AM [facility] DERMATOPATHOLOGY LABORATORY Embedded Images 11:10 AM [facility] DERMATOPATHOLOGY LABORATORY Pathology/Cytolo gy TISSUE SPECIMEN FROM SKIN / Unknown 02/12/2024 2:00 PM TOOLING ENGINEER 02/13/2024 12:36 PM TOOLING ENGINEER us Savita BAHENA LAB - PATHOLOGY/CYTOLOGY ORDERAB LES Final Result DERMATOPATHOLOGY LABORATORY [facility] - Department of Dermatology [facility] [address] [phone] documented in this encounter Visit Diagnoses Not on filedocumented in this encounter Care Teams Club Steward Relationship Specialty Start Date End Date León Varela MD [address] [place] [address] PCP - General 04/29/14 documented as of this encounter
== END 2024-07-25 06:51 | disposition home or self-care (01) ==
LOC: ANHLAB 06:51
PROVIDERS: PCP Family Medicine; Visit Provider Internal Medicine Nephrology
DX: R79.89 Other specified abnormal findings of blood chemistry (principal); I95.9 Hypotension, unspecified
CPT/HCPCS: 36415; 82533; 96372; J0834

== ENCOUNTER 2024-11-17 13:28 | Emergency (ER) | payer OTHER, SELFPAY ==
--- OUTSIDE RECORDS SUMMARY | 2024-01-31 08:30 | XMS_ITS | Continuity of Care Document ---
Author Organization [facility] Address [address] [place] [address] [address] [place] [address] Phone Care Team Providers Care Seo Specialist Name Role Phone Ck Snyder PTA Unavailable Unavailable Procedures Procedure Date Employer Prevention Consultation 2023 Advance Directives Directive Yes / No Effective Date File Name No Information Encounters Encounter Description Practice Location Reason(s) For Visit Diagnoses Date Provider Providers Copied on Encounter [facility], [address], [place], [place], [id number], [place] tel:[phone] [place] No Information Claudio Stover. . Referring Provider: Access Direct. Family History Family Member Type Diagnosis Age At Onset No Information Payers Payer name Insurance type Covered democrat ID Authoriza tion(s) Invoice CI 00 Social History Type Description Quantity Date Captured Comments Sex Female Smoking Status No Information Chief Complaint And Reason For Visit No Information Reason For Referral Reason For Referral No Information History Of Present Illness Encounter Date Complaint History Of Prese nt Illness No Information Functional Status Date Functional Assessmen t No Information Instructions Date Instruction Additional Infor mation No Information Assessments Type Assessment Date No Information Patient Care Teams Name Effective Dates (start - stop) Status Members No Information
--- OUTSIDE RECORDS SUMMARY | 2024-01-31 08:30 | XMS_ITS | Continuity of Care Document ---
Author Organization [facility] Address [address] [place] [address] [address] [place] [address] Phone Care Team Providers Care Car Icer Name Role Phone Ck Snyder PTA Unavailable Unavailable Procedures Procedure Date Employer Prevention Consultation 2023 Advance Directives Directive Yes / No Effective Date File Name No Information Encounters Encounter Description Practice Location Reason(s) For Visit Diagnoses Date Provider Providers Copied on Encounter [facility], [address], [place], [place], [id number], [place] tel:[phone] [place] No Information Claudio Stover. . Referring Provider: Access Direct. Family History Family Member Type Diagnosis Age At Onset No Information Payers Payer name Insurance type Covered constitution party ID Authoriza tion(s) Invoice CI 00 Social [...]
--- OUTSIDE RECORDS SUMMARY | 2024-11-17 13:29 | XMS_ITS | Encounter Summary ---
Author Organization [facility] Address [address] [place] [address] Care Team Providers Care Selling Manager Name Role Phone León Varela MD Primary Care Provider [phone] Encounter Details Date Type Department Care Team (Late st Contact Info) Description 08/22/2022 Lab Requisition [facility] - [facility] [address] [place] [address] Disha Gutierrez MD [address] [facility] [address] [place] [address] Social History Tobacco Use Types Packs/Day Years Used Date Smoking Tobacco: Never Assessed Comments Unknown Sex and Gender Information Value Date Recorded Sex Assigned at Not on file Legal Sex Female 5:46 PM TITRATOR Gender Identity Not on file Sexual Orientation Not on file documented as of this encounter Plan of Treatment Not on file documented as of this encounter Procedures Procedure Name Priority Date/Time Associated Diagnosis Comments DERMATOPATHOLOGY Routine 08/22/2022 3:38 PM CDT documented in this encounter Results * DERMATOPATHOLOGY (08/22/2022 3:38 PM CDT) Case Report Dermatopathology Report Case: [id number] Authorizing Provider: Disha Gutierrez MD Collected: 08/22/2022 03:38 PM Ordering Location: [facility] Received: 08/23/2022 12:25 PM Pathologist: Key Johnson MD Specimens: A) - Skin, left arm B) - Skin, right arm C) - Skin, right upper lip D) - Skin, left hand E) - Skin, left 3rd finger 3 3:13 PM T DERMATOPATHOLOGY LABORATORY Final Diagnosis Specimen A. SKIN, [...] OVERLYING CUTANEOUS HORN (L85.8) 3 3:13 PM T DERMATOPATHOLOGY LABORATORY at 1512 CDT Clinical History A-B: [place] R/O SCC C: [place] R/O BCC D-E: [place] R/O SCC 3 3:13 PM T DERMATOPATHOLOGY LABORATORY Gross Description Specimen A: Received [...] 6x6x2 mm. Jar 0. 3 3:13 PM CDT DERMATOPATHOLOGY LABORATORY Microscopic Description Specimen A. SKIN, [...] by the Dermatopathology Laboratory at [facility], directed by Dr. Cole Gonzáles. These tests need not be, and therefore are not, approved by the [place] Food and Drug Administration. The tests are used for clinical purposes. Billing Codes Specimen Charges Stain Charges 72689 [id number] 1 1 1 1 1 3 3:13 [...] ORD ERABLES Final Result DERMATOPATHOLOGY LABORATORY [facility] - Department of Dermatology [facility] [address] [place] [address], [address] [phone] documented in this encounter Visit Diagnoses Not on filedocumented in this encounter Care Teams Selling Manager Relationship Specialty Start Date End Date León Varela MD [address] [place] [address] PCP - General 04/29/14 documented as of this encounter
--- OUTSIDE RECORDS SUMMARY | 2024-11-17 13:29 | XMS_ITS | Clinical Summary ---
Author Organization [facility] Address [address] [place] [address] Care Team Providers Care Electrical Control Assembler Name Role Phone León Varela MD Primary Care Provider [phone] Roger Morales MD Unavailable [phone] Disha Gutierrez MD Unavailable [phone] Allergies Active Allergy Reactions Criticality Noted Date Comments Codeine Palpitations Low 08/11/2019 Fluticasone Propion-Salmeterol Rash,Shortness of breath High 03/22/2024 Thrush Medications albuterol HFA (PROVENTIL HFA,VENTOLIN HFA,PROAIR HFA) 90 mcg/actuation inhalerIndications:A cute Asthma Attack,Bronchospasm Prevention Inhale 2 puffs every 4 (four) hours as needed 020 Active montelukast (SINGULAIR) 10 mg tabletIndications:Ma intenance Therapy for Asthma Take 1 tablet (10 mg total) by mouth nightly Active fluticasone-umeclidi n-vilanter (Trelegy Ellipta) 200-62.5-25 mcg inhalerIndications:M aintenance Therapy for Asthma Inhale 1 puff daily as needed Has not used it in over 1 years Active atorvastatin (LIPITOR) 40 mg tabletIndications:hy perlipidemia Take 1 tablet (40 mg total) by mouth every morning Active senna-docusate (PERICOLACE) 8.6-50 mg Take 1 tablet by mouth daily 30 tablet Active Additional Information Patient taking differently:1 tablet oralDaily PRN, constipation, NOT TAKING, Indications: constipation, Informant: Self, Reported on 08/28/2024 calcitRIOL (ROCALTROL) 0.5 mcg capsule Take 1 capsule (0.5 mcg total) by mouth 3 (three) times a week 12 capsule 025 Active Additional Information Patient taking differently:0.5 mcg oral 3 times weekly,, Indications: hypocalcemia, Informant: Self, Reported on 08/28/2024 ergocalciferol (VITAMIN D) 50,000 unit capsule Take 1 capsule (50,000 Units total) by mouth once a week 4 capsule Active Additional Information Patient taking differently:50,000 Units oral Weekly,mondays, Indications: hypocalcemia, Informant: Self, Reported on 08/28/2024 gabapentin (NEURONTIN) 100 mg capsule Take 2 capsules (200 mg total) by mouth nightly as needed (neuropathy) 30 capsule 025 Active Additional Information Patient taking differently:200 mg oral2 times daily, Indications: Neuropathic Pain, Informant: Self, Reported on 11/07/2024 hydrOXYzine (ATARAX) 25 mg tablet Take 1 tablet (25 mg total) by mouth 3 (three) times a day as needed for itching 30 tablet 025 Active midodrine (PROAMATINE) 10 mg tabletIndications:Sy mptomatic Orthostatic Hypotension Take 2 tablets (20 mg total) by mouth 3 (three) times a day 180 tablet Active droxidopa (NORTHERA) 200 mg tablet Please take 30 minutes before dialysis to prevent low blood pressure 12 capsule 025 Active Additional Information Patient taking differently: Please take 30 minutes before dialysis to prevent low blood pressurePATIENT IS NOT TAKING- ON HOLD PER MD, Informant: Self, Reported on 08/28/2024 hydrocortisone (CORTENEMA) 100 mg/60 mL enema Insert 1 enema (100 mg total) into the rectum nightly as needed for irritation Active AsperFlex, lidocaine, 4 % creamIndications:ski n irritation,HEMRROIDS Apply topically daily 05/19/2 025 Active omeprazole (PriLOSEC) 20 mg capsuleIndications:G ERD Take 1 capsule (20 mg total) by mouth every morning Active senna 8.6 mg tablet Take 1 tablet by mouth daily as needed for constipation 025 Active sevelamer (RENVELA) 800 mg tabletIndications:Re nal Osteodystrophy with Hyperphosphatemia Take 1 tablet (800 mg total) by mouth 3 (three) times a day with meals Active traZODone (DESYREL) 50 mg tablet Take 1 tablet (50 mg total) by mouth daily as needed for sleep Active aspirin 325 mg tablet Take 1 tablet (325 mg total) by mouth daily 30 tablet 11 025 2025 Active oxyCODONE (ROXICODONE) 5 mg immediate release tabletIndications:Pa in Take 1 tablet (5 mg total) by mouth every 4 (four) hours as needed for pain 8 tablet 025 Active Active Problems Problem Noted Date Diagnosed Date Encounter regarding vascular access for dialysis for ESRD 08/06/2024 Hyperkalemia 05/02/2024 Nephrolithiasis 08/13/2019 Overview (08/13/2019): Added automatically from request for surgery [id number] Left nephrolithiasis 08/11/2019 Overview (08/11/2019): Added automatically from request for surgery [id number] Encounters Date Type Department Care Team Description 11/07/2024 7:30 AM CDT - 11/07/2024 10:20 AM CDT Surgery [facility] Operating Room [address] [place] [address] Carmelo Brown MD PhD LEFT RADIOCEPHALIC AV FISTULA CREATION 11/07/2024 7:25 AM CDT Anesthesia Event [facility] Operating Room [address] [place] [address] Ja Johnson III, MD PhD Violette Vallecillo NP 11/07/2024 5:27 AM CDT - 11/07/2024 6:59 PM CDT Hospital Encounter [facility] [address] [place] [address] Carmelo Brown MD PhD ESRD (end stage renal disease) (Primary Dx); Encounter regarding vascular access for dialysis for ESRD (HCC) Discharge Disposition: Discharge to home or self care 11[facility]06[facility] [address] [facility] Advanced Medicine [facility] [place] [address] [place] [address] Carmelo Brown MD PhD 10/28/2024 [facility] [address] [place] [address] [place] [address] Carmelo Brown MD PhD 09/26/2024 5:18 AM CDT - 09/26/2024 5:20 AM CDT Hospital Encounter [facility] Operating Room [address] [place] [address] Carmelo Brown MD PhD Discharge Disposition: Discharge to home or self care 09/26/2024 [facility] [address] [place] [address] [place] [address] Carmelo Brown MD PhD 09/25/2024 [facility] [address] [place] [address] [place] [address] Carmelo Brown MD PhD 08/22/2024 Telephone [facility] Medicine Surgery [address] [place] [address] [place] [address] Carmelo Brown MD PhD from Last 3 Months Surgical History Surgery Date Site/Laterality Comments URETEROSCOPY 08/11/2019 Left WITHSTENT COLONOSCOPY ESOPHAGOGASTRODUODENOSCOPY TUBAL LIGATION LAPAROSCOPIC CHOLECYSTECTOMY 03/20/2010 - 03/19/2011 DILATION AND CURETTAGE OF UTERUS X4 ABLATION UTERINE TUBAL LIGATION Bilateral TUNNELED LINE PLACEMENT > 5 YEARS 05/10/2024 N/A right VASCULAR SURGERY PROCEDURE 11/07/2024 Arm Upper/Left Procedure: LEFT RADIOCEPHALIC AV FISTULA CREATION; Surgeon: Carmelo Brown MD PhD; Location: [facility] OR POD 5; Service: Transplant; Laterality: Left; Medical History Medical History Date Comments Chronic bronchitis (HCC) Hyperlipidemia Type 2 diabetes mellitus Asthma Chronic kidney disease (CKD) Dialysis patient M-W-F Family History Medical History Relation Name Comments ESKD Requiring Dialysis Maternal Grandmother No Known Problems Mother Anesthesia problems Neg Hx Bleeding Disorder Neg Hx Clotting disorder Neg Hx Heart attack Neg Hx Malig Hyperthermia Neg Hx Pseudochol deficiency Neg Hx Stroke Neg Hx Sudden Cardiac Neg Hx Relation Name Status Comments Maternal Grandmother Mother Social History Tobacco Use Types Packs/Day Years Used Date Smoking Tobacco: Former Cigarettes Passive Smoke Exposure: Current Smokeless Tobacco: Never Tobacco Cessation:Counseling Given: Not Answered Comments:Quit smoking 2022 Alcohol Use Standard Drinks/Week Comments Not Currently 0 (1 standard drink = 0.6 oz pur e alcohol) AUDIT-C Answer Date Recorded Q1: How often do you have a drink containing alcohol? Never 11/07/2024 Q2: How many drinks containi ng alcohol do you have on a typical day when you are drinking? Patient does not drink Q3: How often do you have si x or more drinks on one occasion? Never 11/07/2024 Personal Safety Answer Date Recorded Have you ever been in or are you currently in a harmful physical or emotional relationship or is someone making you feel afraid or unsafe? Denies 11/07/2024 Comments No Sex and Gender Information Value Date Recorded Sex Assigned at Not on file Legal Sex Female 7:24 PM LEASING COORDINATOR Gender Identity Not on file Sexual Orientation Not on file Obstetrics History Last Filed Vital Signs Vital Sign Reading Time Taken Comments Blood Pressure 100/59 11/07/2024 4:53 PM CDT Pulse 86 11/07/2024 4:53 PM CDT Temperature 36.6 C (97.9 F) 11/07/2024 4:53 PM CDT Respiratory Rate 29 11/07/2024 4:53 PM CDT Oxygen Saturation 100% 11/07/2024 1:10 PM CDT Inhaled Oxygen Concentration - - Weight 55.8 kg (123 lb) 11/07/2024 5:54 AM CDT Height 152.4 cm (5') 08/28/2024 5:15 PM CDT Body Mass Index 24.02 08/28/2024 5:15 PM CDT Plan of Treatment Health Maintenance [...] 2016 Hemoglobin A1C 10/31/2024 05/03/2024 Influenza Vaccine (#1) 2024 eGFR 05/12/2025 05/12/2024, 04/21, 05/10/2024, Additional history exists Hepatitis C Screening Completed 05/03/2024 Hepatitis B Screening Completed 11/07/2024 Goals Goal Patient Goal Type Associated Problems Recent Progress Patient-Stated? Author Autogenerat ed Goal Care Plan Autogenerated Problem No [employer]lee [employer] Implanted Type Area Bacteriology Teacher Device Identifier Shelf Expiration Date Model / Serial / Lot [facility] [employer] Duraflow Embosafe 15.5fr 24cm Basic 2 Lumen Kit Catheter [id number] - [id number] Implanted:Qty: 1 on 05/10/2024 by Palomo Guzmán MD at [facility] [employer] 05/17/2026 [id number] 15 / / [id number] Explanted Type Area Bacteriology Teacher Device Identifier Shelf Expiration Date Model / Serial / Lot [employer] [id number] Inlay [place] 6fr 24cm Pusher Fluoro Marker Atraumatic Insertion Latex Free - Sn/A - [id number] Implanted:Qty: 1 on 08/11/2019 by Zenaida Romero MD at [facility] Explanted:Qty: 1 on 09/04/2019 at [facility] Stent Left: Ureter [employer] [id number] 07/26/2023 [id number] / N/A / [id number] Procedures Procedure Name Priority Date/Time Associated Diagnosis Comments POTASSIUM LEVEL Timed 11/07/2024 6:04 PM CDT POCT GLUCOSE DEVICE Routine 11/07/2024 4 :06 PM CDT POTASSIUM, WHOLE BLOOD STAT 11/07/2024 1:35 PM CDT HEPATITIS B SURFACE ANTIGEN STAT 11/07/2024 1:35 PM CDT HEMODIALYSIS Routine 11/07/2024 12:40 PM CDT CRITICAL RESULT CALLBACK CHEMISTRY Timed 11/07/2024 11:40 AM CDT CRITICAL RESULT CALLBACK CHEMISTRY STAT 11/07/2024 11:40 AM CDT POTASSIUM LEVEL Timed 11/07/2024 11:40 AM CDT POTASSIUM, WHOLE BLOOD STAT 11/07/2024 11:40 AM CDT POC BLOOD GAS AND CHEMISTRIES, VENOUS Routine 11/07/2024 11:04 AM CDT POCT GLUCOSE DEVICE Routine 11/07/2024 1 0:53 AM CDT POCT GLUCOSE DEVICE Routine 11/07/2024 9 :04 AM CDT ANESTHESIA INTUBATION Routine 11/07/2024 8:03 AM CDT ARTERIOVENOUS GRAFT - UPPER EXTREMITY 11/07/2024 7:27 AM CDT ESRD (end stage renal disease) Case Notes 08/28@0850- Case msg sent to [facility] case moved to follow donor/recipient case - [facility] 08/22@1122- Per Rakel via phone call reschedule to 09/26- [facility] ECG 12-LEAD Routine 11/07/2024 6:16 AM CDT POC BLOOD GAS AND CHEMISTRIES, ARTERIAL Routine 11/07/2024 5:57 AM CDT EGFR Routine 05/12/2024 8:57 PM LEASING COORDINATOR HEPATITIS C ANTIBODY Routine 05/03/2024 2:36 AM LEASING COORDINATOR HEMOGLOBIN A1C Routine 05/03/2024 2:36 AM LEASING COORDINATOR from Last 3 Months or Most Recently Relevant to Health Maintenance Results * Potassium (11/07/2024 6:04 PM CDT) Potassium, pl 4.0 3.3 - 4.9 mmol/L Blood 11/07/2024 6:04 PM CDT 11/07/2024 6:14 PM CDT Narrative [facility] - 11/07/2024 6:37 PM CDT Provider to discontinue after two normal results. Carmelo Brown MD PhD LAB BLOOD ORDERABLES Corine l Result Performing Organization Address City/[facility]/ZIP Co de Phone Number [facility] Department [place] [address] * POCT glucose (11/07/2024 4:06 PM CDT) Glucose, POC 149 70 - 199 mg/dL Blood 11/07/2024 4:06 PM CDT 11/07/2024 4:06 PM CDT Carmelo Brown MD PhD LAB POCT ORDERABLES - DEV ICE Final Result [facility] [place] [address] * (ABNORMAL) Potassium, whole blood (11/07/2024 1:35 PM CDT) Potassium, bld 5.8(H) 3.3 - 4.9 mmol/L Blood 11/07/2024 1:35 PM CDT 11/07/2024 1:59 PM CDT Narrative [facility] - 11/07/2024 2:10 PM CDT Draw with HD Antoine Segura CRICKET COACH LAB BLOOD ORDERABLES Fi nal Result Performing Organization Address [facility] Co de Phone Number [facility] Department [place] [address] * Hepatitis B Surface Antigen Blood (11/07/2024 1:35 PM CDT) Pathologist [facility] HepBsAg Nonreactive Nonreactive Blood 11/07/2024 1:35 PM CDT 11/07/2024 2:03 PM CDT Narrative [facility] - 11/07/2024 2:39 PM CDT Dialysis will draw Antoine Segura CRICKET COACH LAB MICROBIOLOGY - GENE RAL ORDERABLES Final Result Performing Organization Address [facility] de Phone Number [facility] [place] [address] * (ABNORMAL) Potassium, whole blood (11/07/2024 11:40 AM CDT) Pathologist [facility] Potassium, bld 6.5(C) 3.3 - 4.9 mmol/L Comment:Repeated and verifie d. Blood 11/07/2024 11:4 0 AM CDT 11/07/2024 11:47 AM CDT Carmelo Brown MD PhD LAB BLOOD ORDERABLES Corine l Result Performing Organization Address [facility] Co de Phone Number [facility] [place] [address] * Critical Result Callback Chemistry (11/07/2024 11:40 AM CDT) Date Notified [id number] Time Notified 1223 [facility] TestName Potassium Plasma [facility] Called/Read Back Genesis ANDREWS Credentials RN [facility] Called By virgie [facility] Blood 11/07/2024 11:4 0 AM CDT 11/07/2024 11:57 AM CDT us Roxi Segura MD LAB BLOOD ORDERABLES Final Result Performing Organization Address [facility] Co de Phone Number [facility] [place] [address] * Critical Result Callback Chemistry (11/07/2024 11:40 AM CDT) Date Notified 20241107 Time Notified 1202 [facility] TestName Potassium WB [facility] Called/Read Back Adebayo [facility] Credentials RN [facility] Called By virgie [facility] Blood 11/07/2024 11:4 0 AM CDT 11/07/2024 11:47 AM CDT us Carmelo Brown MD PhD LAB BLOOD ORDERABLES Corine l Result Performing Organization Address [facility] Co de Phone Number [facility] [place] [address] * (ABNORMAL) Potassium (11/07/2024 11:40 AM CDT) Potassium, pl 7.0(C) 3.3 - 4.9 mmol/L Blood 11/07/2024 11:4 0 AM CDT 11/07/2024 11:47 AM CDT Narrative [facility] - 11/07/2024 12:18 PM CDT Provider to discontinue after two normal results. us Roxi Segura MD LAB BLOOD ORDERABLES Final Result Performing Organization Address City/[facility]/ZIP Co de Phone Number [facility] [place] [address] * (ABNORMAL) POC Blood Gas and Chemistries, Venous - (11/07/2024 11:04 AM CDT) pH, Love POC 7.37 7.32 - 7.43 pCO2, love POC 38(L) 40 - 50 mmHg [facility] pO2, love POC 61 mmHg [facility] Na, POC 126(L) 135 - 145 mmol/L [facility] K POC 6.6(C) 3.3 - 4.9 mmol/L [facility] Comment: Interpretive Data Not all point of care methods assess for hemolysis. Confirm with instrument and retest K+ if not consistent with clinical signs and symptoms. Current Interpretive Data was last revised on 2023. Cl, POC 91(L) 97 - 110 mmol/L [facility] Ionized Ca, POC 4.92 4.50 - 5.10 mg/dL [facility] Glucose, POC 147 70 - 199 mg/dL [facility] Lactate POC 2.3(H) 0.7 - 2.0 mmol/L [facility] O2 Sat, Love POC ([place]) 90 % [facility] HCO3, Love POC 22 20 - 30 mmol/L [facility] Hct, POC 34.0(L) 36.3 - 45.3 % [facility] Total Hb, POC 11.3(L) 11.9 - 15.5 g/dL [facility] Blood 11/07/2024 11:0 4 AM CDT 11/07/2024 11:04 AM CDT Carmelo Brown MD PhD LAB POCT ORDERABLES - DEV ICE Final Result Performing Organization Address City/[facility] Co de Phone Number [facility] Department [place] [address] * POCT glucose (11/07/2024 10:53 AM CDT) Pathologist [facility] Glucose, POC 163 70 - 199 mg/dL Blood 11/07/2024 10:5 3 AM CDT 11/07/2024 10:53 AM CDT Carmelo Brown MD PhD LAB POCT ORDERABLES - DEV ICE Final Result Performing Organization Address City[facility] Co de Phone Number [facility] Department [place] [address] * POCT glucose (11/07/2024 9:04 AM CDT) Glucose, POC 160 70 - 199 mg/dL Blood 11/07/2024 9:04 AM CDT 11/07/2024 9:04 AM CDT us Carmelo Brown MD PhD LAB POCT ORDERABLES - DEV ICE Final Result Performing Organization Address [facility] de Phone Number [facility] [place] [address] * Airway (11/07/2024 8:03 AM CDT) Narrative Figueroa Noonan MD - 11/07/2024 8:03 AM CDT Figueroa Noonan MD 11/07/2024 8:04 AM Airway Patient location: OR Urgency: elective Indications for airway management: anesthesia Difficult airway: no Staff: Supervising provider: Ja Johnson III, MD PhD Placed by: Resident: Figueroa Noonan MD Emergent airway documentation: Risks and benefits discussed: yes Consent obtained: yes Consent given by: patient Airway prep: Preoxygenated: yes Patient position: sniffing Mask difficulty assessment: 0 - not attempted Spontaneous ventilation during airway: absent Sedation level during airway: GA Final airway details: Final airway type: endotracheal airway Tube type: ETT ETT size: 7.0 mm Cuffed: yes Technique used for successful ETT placement: direct laryngoscopy Devices/Methods used in placement: stylet and cricoid pressure Insertion site: oral Blade type: Dick Blade size: 3 Cormack-Lehane (direct): grade I - full view of glottis Cuff inflated with: air ETT to teeth: 21 cm Placement verified by: auscultation and CO2 detection Airway secured with: silk tape Number of attempts: 1 us Ja Jhonson III, MD PhD ANESTHESIA ORDERABLES Final Result * ECG 12 lead (11/07/2024 6:16 AM CDT) Ventricular Rate EKG/Min 76 BPM [facility] Atrial Rate 76 BPM [facility] WA-Interval (MSEC) 176 ms [facility] QRS-Interval (MSEC) 72 ms [facility] QT-Interval (MSEC) 388 ms [facility] QTc 436 ms [facility] P [place] 58 degrees [facility] R [place] 74 degrees [facility] T [place] 31 degrees [facility] Diagnosis Normal sinus rhythm Low voltage QRS Borderline ECG No previous ECGs available Confirmed by Filipe Moss MD ([id number]) on 11/07/2024 9:44:04 AM [facility] 11/07/2024 6:16 AM CDT 11/07/2024 9:44 AM CDT Figueroa Noonan MD ECG ORDERABLES Final Result Performing Organization Address City/[facility]/ZIP Co de Phone Number [facility] * (ABNORMAL) POC Blood Gas and Chemistries, Arterial - (11/07/2024 5:57 AM CDT) Pathologist [facility] Na, POC 127(L) 135 - 145 mmol/L K POC 5.5(H) 3.3 - 4.9 mmol/L [facility] Comment: Interpretive Data Not all point of care methods assess for hemolysis. Confirm with instrument and retest K+ if not consistent with clinical signs and symptoms. Current Interpretive Data was last revised on 2023. Glucose, POC 156 70 - 199 mg/dL [facility] Hct, POC 37.0 36.3 - 45.3 % [facility] Total Hb, POC 12.3 11.9 - 15.5 g/dL [facility] Blood 11/07/2024 5:57 AM CDT 11/07/2024 5:57 AM CDT Carmelo Brown MD PhD LAB POCT ORDERABLES - DEV ICE Final Result Performing Organization Address City/[facility]/ZIP Co de Phone Number [facility] Department [place] [address] * (ABNORMAL) eGFR (05/12/2024 8:57 PM LEASING COORDINATOR) eGFR 12(L) >=60 mL/min/1. 73 m2 Comment: [...] last reviewed 2021. Blood 05/12/2024 8:57 PM LEASING COORDINATOR 05/12/2024 9:32 PM LEASING COORDINATOR us Tu Lozano MD LAB BLOOD ORDERABLES Final [facility] [place] [address] * Hepatitis C antibody Blood (05/03/2024 2:36 AM LEASING COORDINATOR) Pathologist [facility] Hep C Ab Nonreactive Nonreactive Comment:Antibodies to HCV no t detected. Does NOT exclude the possibility of recent exposure to HCV. Current interpretive data was last revised on 21 Blood 05/03/2024 2:36 AM LEASING COORDINATOR 05/03/2024 3:12 AM LEASING COORDINATOR us Troy Ramirez MD LAB MICROBIOLOGY - GENERAL OR DERABLES Final Result [facility] [place] [address] * (ABNORMAL) Hemoglobin A1c (05/03/2024 2:36 AM LEASING COORDINATOR) Hgb A1C 6.2(H) 4.0 - 5.6 % Estimated Average Glucose 131 mg/dL [facility] Comment: The ADA recommends reporting an estimated Average Glucose (eAG) with all Hemoglobin A1c results using the equation derived from a study of 507 normal and diabetic adults. Minority populations were underrepresented and children were not included. (Diabetes Care 2020; 43(S1): S66-S76). The eAG is not equivalent to a fasting glucose. Blood 05/03/2024 2:36 AM LEASING COORDINATOR 05/03/2024 2:59 AM LEASING COORDINATOR us Troy Ramirez MD LAB BLOOD ORDERABLES Final Re sult [facility] Department [place] [address] from Last 3 Months or Most Recently Relevant to Health Maintenance Additional Health Concerns Active Problems Noted Date Diagnosed Date Autogenerated Problem 09/30/2024 Insurance MEDICARE MEDICARE TRANSPLANT [facility] [employer] Advance Directives For more information, please contact: [phone] * Full Code (Latest Code Status on File) Date Activated Date Inactivated Comments 05/03/2024 2:16 AM 05/14/2024 1:09 AM * Full Code Date Activated Date Inactivated Comments 08/12/2019 3:28 AM 08/12/2019 7:14 PM Healthcare Agents on File Name Relationship Healthcare Agent Relationshi p Communication [place] Keerthijean Spouse Health Care Agent Care Teams Electrical Control Assembler Relationship Specialty Start Date End Date León Varela MD [address] [place] [id number] PCP - General Family Medicine 05/02/24 Roger Morales MD [address] [facility] [address] [place] [address] Referring Physician Nephrology 05/08/24 Disha Gutierrez MD [address] [place] [id number] Referring Physician Dermatology 06/18/24
--- OUTSIDE RECORDS SUMMARY | 2024-11-17 13:30 | XMS_ITS | Clinical Summary ---
Author Organization [facility] Address [address] [place] [address] Care Team Providers Care [employer] Name Role Phone León Varela MD Primary Care Provider [phone] Source Comments [facility],non-owned Affiliates and Associated Physician Practices is amultiple site organization consisting of ambulatory clinics and [place]in [place] and [place]. This disclosure is being madepursuant to the Care Everywhere program and may not contain all information available regarding this patient. Last updated 17.[facility] Allergies Active Allergy Reactions Criticality Noted Date [...] on file Legal Sex Female 5:46 PM FRONT TENDER Gender Identity Not on file Sexual Orientation Not on file Plan of Treatment Health Maintenance Due Date Last Done Comments COLOGUARD (AGES 45-75) - COL ON CA SCREENING 1966 COLON MONITORING 1966 COLONOSCOPY - COLON CA SCREENING 1966 CT COLONOGRAPHY - COLON CA SCREENING 1966 Colorectal Cancer Screening 1966 FIT - COLON CA SCREENING 1966 FLEX SIG - COLON CA SCREENING 1966 MAMMOGRAM 1966 HIV SCREENING 1981 DTAP/TDAP/TD VACCINES (1 - Tdap) 1985 HEPATITIS B VACCINE (1 of 3 - 19+ 3-dose series) 1985 PNEUMOCOCCAL VACCINE 50+ (1 of 1 - PCV) 2016 ZOSTER VACCINE (1 of 2) 2016 COVID-19 VACCINE ( - 2023-2 5 season) 2023 DEPRESSION SCREENING 03/20/2024 INFLUENZA VACCINE (#1) 2024 PAP SMEAR 02/08/2027 02/09/2024, 02/09/2024 HEPATITIS C SCREENING Completed 05/03/2024 , 05/03/2024 HIB VACCINE Aged Out No longer eligi ble based on patient's age to complete this topic HPV VACCINE Aged Out No longer eligi ble based on patient's age to complete this topic MENINGOCOCCAL (Group B) VACCINE SHARED DECISION-MAKING Aged Out No longer eligible based on patient's age to complete this topic MENINGOCOCCAL GROUPS A/C/Y/W VACCINE Aged Out No longer eligible b ased on patient's age to complete this topic Insurance [employer] Care Teams [employer] Relationship Specialty Start Date End Date León Varela MD [facility] [place] [address] PCP - General 04/29/14
--- OUTSIDE RECORDS SUMMARY | 2024-11-17 13:30 | XMS_ITS ---
Author Organization [facility] Mary snyder ([facility] interaction) Address [facility] [address] [address] Care Team Providers Care Cogn[employer] Report Developer Name Role Phone Unavailable Unavailable Unavailable Allergies, Adverse Reactions, Alerts Allergy Name Allergy Type Status Severity Reaction(s) Onset Date Inactive Date Treating Clinician Comments Codeine Allergy Active Mild Allergy 2024-04 18:47:5 5 Codeine Allergy Active Mild Allergy Chest Pain 2024-04 18:47:5 5 Advair Diskus Allergy Active Mild Allergy Rash 2024-04 18:47:1 3 Advair Diskus Allergy Active Mild Allergy 2024-04 18:47:1 3 Medications Ordered Medication Name Filled Medication Name Start Date Stop Date Current Medication? Ordering Clinician Indication Dosage Frequency Signature (SIG) Comments Components cinacalcet hydrochlori de 10-25 16:42: 04 Yes [id number] Number of Repeats Allowed: Frequency: Three times a week Mircera 10-25 15:59: 48 Yes [id number] Number of Repeats Allowed: Frequency: ADAMA dosing, every two weeks Mircera 0 6-07 19:08: 01 Yes [id number] Number of Repeats Allowed: Frequency: ADAMA dosing, every two weeks cinacalcet hydrochlori de 0 08-14 14:13: 16 Yes [id number] Number of Repeats Allowed: Frequency: Three times a week calcitriol 2024-07-06 05:00: 00 Yes [id number] Number of Repeats Allowed: Frequency: Three times a week Mircera 0 06-14 14:45: 21 Yes [id number] Number of Repeats Allowed: Frequency: ADAMA dosing, every two weeks heparin sodium, porcine 2024-06-12 18:55: 04 Yes [id number] Number of Repeats Allowed: Frequency: Every Dialysis TreatmentD osesOrdere d: Post CVC Instillati on 2100 Units 1:1000 Units/mLRo [place]: Intracathe terDosesOr dered: Post CVC Instillati on 2100 Units 1:1000 Units/mLRo [place]: Intracathe ter ONS [facility] 311 05:00: 00 Yes [id number] Number of Repeats Allowed: Frequency: Every Dialysis Treatment Venofer 05-17 14:01: 35 Yes [id number] Number of Repeats Allowed: Frequency: One time [...] a day Oxygen 05-14 18:59: 54 Yes [id number] Number of Repeats Allowed: Frequency: As needed ondansetron hydrochlori de 05-14 18:59: 18 Yes [id number] Number of Repeats Allowed: Frequency: Every 4 hours as needed EpiPen 2-Yovanny 05-14 18:59: 09 Yes [id number] Number of Repeats Allowed: Frequency: Every 4 hours as needed diphenhydra mine hydrochlori de 05-14 18:59: 03 Yes [id number] Number of Repeats Allowed: Frequency: Every 4 hours as needed diphenhydra mine hydrochlori de 05-14 18:58: 48 Yes [id number] Number of Repeats Allowed: Frequency: Every 4 hours as needed clonidine 05-14 18:58: 38 Yes [id number] Number of Repeats Allowed: Frequency: Every 4 hours as needed acetaminoph en 05-14 18:58: 26 Yes [id number] Number of Repeats Allowed: Frequency: Every 4 hours as needed heparin sodium, porcine 05-14 18:58: 12 Yes [id number] Number of Repeats Allowed: Frequency: Every Dialysis TreatmentD osesOrdere d: Loading Dose 1000 Units 1:1000 Units/mLRo [place]: Intravenou s heparin sodium, porcine 05-14 18:58: 12 Yes [id number] Number of Repeats Allowed: Frequency: Every Dialysis TreatmentD osesOrdere d: Hourly Dose 600 Units/Hr 1:1000 Units/mLRo [place]: Intravenou s Problems This patient has no known problems. Procedures Procedure Date / Time Performed Performing Clinician Dominique ce Details AV Fistula 2024-11-07 05:00:00 Access Surgeon JASMIN RODRIGUES A.MD ( [id number]),[place], [place] Access Site Forearm (Left) Central Venous Catheter (CVC)2024-05-06 06:00:00 Access Site Chest (Right) Access Use Start Date 2024-05-15 00:00:0 0 DIALYSIS TREATMENT INFORMATION Conventional Hemodialysis Date Type Treatment Start Date Treatment End Date Pre-Treatment Vitals Post-Treatment Vitals Weight Gain BFR DFR Actual UF Dialysis Access Augus t 2024 In-Ce nter Hemod ialys is Treat ment 2024-11-15 T09:59:00. 000Z 2024-11-15 T13:09:15. 000Z BP Sitting (Pre-Dialysis) 100/55 mmHg BP Sitting (Post-D ialysis ) 87/4 3 mmHg BP Standing (Pre-Dialysis) 99/54 mmHg BP Standing (P ost-Dialysis) 98/65 mmHg Sitting Heart Rate Pre-Dialysis 87 BPM Sitting H eart Rate Post-Dialysis 77 BPM Standing Heart Rate Pre-Dialysis 89 BPM Standing Heart Rate Post-Dialysis 85 BPM Temperature Pre-Dialysis 97.6 degF Temperature Post -Dialysis 97.2 degF November 13, 2024 In-Center Hemodialysis Treatment 4216-22-49F73:06:54.000Z 1753-46-73V27:38:34.000Z BP Sitting (Pre-Dialysis) 104/60 mmHg BP Sitting (Post-Dialysis) 80/47 mmHg Concurrent Access: falseCentral Venous Catheter (CVC) Chest (Right) ArterialAV Fistula Forearm (Left) Venous BP Standing (Pre-Dialysis) 109/60 mmHg BP Standing (P ost-Dialysis) 90/50 mmHg Sitting Heart Rate Pre-Dialysis 86 BPM Sitting Heart Rate Post-Dialysis 83 BPM Standing Heart Rate Pre-Dialysis 86 BPM Standing Heart Rate Post-Dialysis 88 BPM Temperature Pre-Dialysis 97.7 degF Temperature Post -Dialysis 98.4 degF November 11, 2024 In-Center Hemodialysis Treatment 5483-87-22S18:06:45.000Z 7683-07-18L59:07:10.000Z BP Sitting (Pre-Dialysis) 91/46 mmHg BP Sitting (Post-Dialysis) 114/63 mmHg Concurrent Access: falseCentral Venous Catheter (CVC) Chest (Right) ArterialAV Fistula Forearm (Left) Venous BP Standing (Pre-Dialysis) 89/50 mmHg BP Standing (P ost-Dialysis) 108/58 mmHg Sitting Heart Rate Pre-Dialysis 85 BPM Sitting Heart Rate Post-Dialysis 79 BPM Standing Heart Rate Pre-Dialysis 87 BPM Standing Heart Rate Post-Dialysis 89 BPM Temperature Pre-Dialysis 98 degF Temperature Post -Dialysis 97.9 degF November 08, 2024 In-Center Hemodialysis Treatment 9510-06-19T89:04:07.000Z 3928-13-30T08:51:37.000Z BP Sitting (Pre-Dialysis) 111/48 mmHg BP Sitting (Post-Dialysis) 100/57 mmHg Concurrent Access: falseCentral Venous Catheter (CVC) Chest (Right) Arterial BP Standing (Pre-Dialysis) 85/40 mmHg BP Standing (P ost-Dialysis) 105/55 mmHg Sitting Heart Rate Pre-Dialysis 92 BPM Sitting Heart Rate Post-Dialysis 73 BPM Standing Heart Rate Pre-Dialysis 100 BPM Standing Heart Rate Post-Dialysis 91 BPM Temperature Pre-Dialysis 98.2 degF Temperature Post -Dialysis 98 degF November 06, 2024 In-Center Hemodialysis Treatment 2587-34-48U72:04:01.000Z 7387-80-53X98:24:51.000Z BP Sitting (Pre-Dialysis) 106/66 mmHg BP Sitting (Post-Dialysis) 84/56 mmHg Concurrent Access: falseCentral Venous Catheter (CVC) Chest (Right) Arterial BP Standing (Pre-Dialysis) 88/53 mmHg BP Standing (P ost-Dialysis) 95/55 mmHg Sitting Heart Rate Pre-Dialysis 89 BPM Sitting H eart Rate Post-Dialysis 84 BPM Standing Heart Rate Pre-Dialysis 91 BPM Standing Heart Rate Post-Dialysis 93 BPM Temperature Pre-Dialysis 98 degF Temperature Post -Dialysis 97.2 degF November 04, 2024 In-Center Hemodialysis Treatment 5435-57-25J91:52:18.000Z 2236-57-89V06:55:38.000Z BP Sitting (Pre-Dialysis) 107/56 mmHg BP Sitting (Post-Dialysis) 89/52 mmHg Concurrent Access: falseCentral Venous Catheter (CVC) Chest (Right) Arterial BP Standing (Pre-Dialysis) 98/54 mmHg BP Standing (P ost-Dialysis) 102/46 mmHg Sitting Heart Rate Pre-Dialysis 74 BPM Sitting Heart Rate Post-Dialysis 83 BPM Standing Heart Rate Pre-Dialysis 89 BPM Standing Heart Rate Post-Dialysis 94 BPM Temperature Pre-Dialysis 98.2 degF Temperature Post -Dialysis 97.4 degF November 01, 2024 In-Center Hemodialysis Treatment 2103-54-68S78:07:22.000Z 7362-65-70R61:07:47.000Z BP Sitting (Pre-Dialysis) 94/49 mmHg BP Sitting (Post-Dialysis) 88/48 mmHg Concurrent Access: falseCentral Venous Catheter (CVC) Chest (Right) Arterial BP Standing (Pre-Dialysis) 90/52 mmHg BP Standing (P ost-Dialysis) 95/61 mmHg Sitting Heart Rate Pre-Dialysis 91 BPM Sitting H eart Rate Post-Dialysis 88 BPM Standing Heart Rate Pre-Dialysis 90 BPM Standing Heart Rate Post-Dialysis 96 BPM Temperature Pre-Dialysis 97.8 degF Temperature Post -Dialysis 98 degF October 30, 2024 In-Center Hemodialysis Treatment 4894-67-53B05:07:34.000Z 7278-83-32L92:49:14.000Z BP Sitting (Pre-Dialysis) 106/51 mmHg BP Sitting (Post-Dialysis) 101/60 mmHg Concurrent Access: falseCentral Venous Catheter (CVC) Chest (Right) Arterial BP Standing (Pre-Dialysis) 104/52 mmHg BP Standing (P ost-Dialysis) 99/53 mmHg Sitting Heart Rate Pre-Dialysis 85 BPM Sitting Heart Rate Post-Dialysis 79 BPM Standing Heart Rate Pre-Dialysis 90 BPM Standing Heart Rate Post-Dialysis 100 BPM Temperature Pre-Dialysis 98.4 degF October 28, 2024 In-Center Hemodialysis Treatment 8621-29-87P30:55:00.000Z 3582-74-05D05:09:51.000Z BP Sitting (Pre-Dialysis) 99/54 mmHg BP Sitting (Post-Dialysis) 111/37 mmHg Concurrent Access: falseCentral Venous Catheter (CVC) Chest (Right) Arterial BP Standing (Pre-Dialysis) 91/53 mmHg BP Standing (P ost-Dialysis) 122/59 mmHg Sitting Heart Rate Pre-Dialysis 83 BPM Sitting Heart Rate Post-Dialysis 98 BPM Standing Heart Rate Pre-Dialysis 93 BPM Standing Heart Rate Post-Dialysis 110 BPM Temperature Pre-Dialysis 97.8 degF Temperature Post -Dialysis 98 degF October 25, 2024 In-Center Hemodialysis Treatment 8468-90-88G13:58:00.000Z 0807-19-51B20:00:20.000Z BP Sitting (Pre-Dialysis) 105/66 mmHg BP Sitting (Post-Dialysis) 98/65 mmHg Concurrent Access: falseCentral Venous Catheter (CVC) Chest (Right) Arterial BP Standing (Pre-Dialysis) 102/56 mmHg BP Standing (P ost-Dialysis) 102/48 mmHg Sitting Heart Rate Pre-Dialysis 83 BPM Sitting Heart Rate Post-Dialysis 90 BPM Standing Heart Rate Pre-Dialysis 89 BPM Standing Heart Rate Post-Dialysis 84 BPM Temperature Pre-Dialysis 98.1 degF Temperature Post -Dialysis 98 degF October 23, 2024 In-Center Hemodialysis Treatment 0812-97-90Y89:07:48.000Z 9531-73-72E28:28:38.000Z BP Sitting (Pre-Dialysis) 98/49 mmHg BP Sitting (Post-Dialysis) 127/50 mmHg Concurrent Access: falseCentral Venous Catheter (CVC) Chest (Right) Arterial BP Standing (Pre-Dialysis) 83/46 mmHg BP Standing (P ost-Dialysis) 95/46 mmHg Sitting Heart Rate Pre-Dialysis 81 BPM Sitting H eart Rate Post-Dialysis 87 BPM Standing Heart Rate Pre-Dialysis 89 BPM Standing Heart Rate Post-Dialysis 90 BPM Temperature Pre-Dialysis 98 degF October 21, 2024 In-Center Hemodialysis Treatment 8560-45-25M02:59:00.000Z 1845-62-45R57:02:28.000Z BP Sitting (Pre-Dialysis) 102/58 mmHg BP Sitting (Post-Dialysis) 97/54 mmHg Concurrent Access: falseCentral Venous Catheter (CVC) Chest (Right) Arterial BP Standing (Pre-Dialysis) 95/56 mmHg Sitti ng Heart Rate Post-Dialysis 77 BPM Sitting Heart Rate Pre-Dialysis 78 BPM Temperatu re Post-Dialysis 97.4 degF Standing Heart Rate Pre-Dialysis 80 BPM Temperature Pre-Dialysis 97.9 degF October 18, 2024 In-Center Hemodialysis Treatment 3411-55-89Q63:00:00.000Z 8604-53-73R88:12:13.000Z BP Sitting (Pre-Dialysis) 98/54 mmHg BP Sitting (Post-Dialysis) 91/48 mmHg Concurrent Access: falseCentral Venous Catheter (CVC) Chest (Right) Arterial BP Standing (Pre-Dialysis) 76/46 mmHg BP Standing (P ost-Dialysis) 93/47 mmHg Sitting Heart Rate Pre-Dialysis 80 BPM Sitting H eart Rate Post-Dialysis 76 BPM Standing Heart Rate Pre-Dialysis 94 BPM Standing Heart Rate Post-Dialysis 90 BPM Temperature Pre-Dialysis 98 degF Temperature Post -Dialysis 98 degF October 16, 2024 In-Center Hemodialysis Treatment 4482-24-29C31:56:00.000Z 3953-93-30J40:34:44.000Z BP Sitting (Pre-Dialysis) 100/51 mmHg BP Sitting (Post-Dialysis) 94/47 mmHg Concurrent Access: falseCentral Venous Catheter (CVC) Chest (Right) Arterial BP Standing (Pre-Dialysis) 100/31 mmHg BP Standing (P ost-Dialysis) 101/51 mmHg Sitting Heart Rate Pre-Dialysis 78 BPM Sitting Heart Rate Post-Dialysis 87 BPM Standing Heart Rate Pre-Dialysis 90 BPM Standing Heart Rate Post-Dialysis 89 BPM Temperature Pre-Dialysis 98 degF Temperature Post -Dialysis 98 degF October 14, 2024 In-Center Hemodialysis Treatment 5613-09-58M26:03:00.000Z 7015-73-04U20:14:51.000Z BP Sitting (Pre-Dialysis) 117/64 mmHg BP Sitting (Post-Dialysis) 93/51 mmHg Concurrent Access: falseCentral Venous Catheter (CVC) Chest (Right) Arterial BP Standing (Pre-Dialysis) 93/59 mmHg BP Standing (P ost-Dialysis) 104/53 mmHg Sitting Heart Rate Pre-Dialysis 77 BPM Sitting Heart Rate Post-Dialysis 80 BPM Standing Heart Rate Pre-Dialysis 89 BPM Standing Heart Rate Post-Dialysis 90 BPM Temperature Pre-Dialysis 98 degF Temperature Post -Dialysis 98 degF October 11, 2024 In-Center Hemodialysis Treatment 7690-25-76G89:58:41.000Z 0186-68-36W76:19:45.000Z BP Sitting (Pre-Dialysis) 100/58 mmHg BP Sitting (Post-Dialysis) 96/52 mmHg Concurrent Access: falseCentral Venous Catheter (CVC) Chest (Right) Arterial BP Standing (Pre-Dialysis) 90/53 mmHg Sitti ng Heart Rate Post-Dialysis 81 BPM Sitting Heart Rate Pre-Dialysis 78 BPM Temperatu re Post-Dialysis 98.1 degF Standing Heart Rate Pre-Dialysis 85 BPM Temperature Pre-Dialysis 98.3 degF October 09, 2024 In-Center Hemodialysis Treatment 4224-55-66X04:58:31.000Z 9507-42-98S42:54:21.000Z BP Sitting (Pre-Dialysis) 93/58 mmHg BP Sitting (Post-Dialysis) 95/54 mmHg Concurrent Access: falseCentral Venous Catheter (CVC) Chest (Right) Arterial BP Standing (Pre-Dialysis) 104/58 mmHg BP Standing (P ost-Dialysis) 103/50 mmHg Sitting Heart Rate Pre-Dialysis 90 BPM Sitting Heart Rate Post-Dialysis 82 BPM Standing Heart Rate Pre-Dialysis 90 BPM Standing Heart Rate Post-Dialysis 102 BPM Temperature Pre-Dialysis 98 degF Temperature Post -Dialysis 97.9 degF October 07, 2024 In-Center Hemodialysis Treatment 0502-11-26U67:03:00.000Z 8112-35-34R21:59:22.000Z BP Sitting (Pre-Dialysis) 106/60 mmHg BP Sitting (Post-Dialysis) 100/50 mmHg Concurrent Access: falseCentral Venous Catheter (CVC) Chest (Right) Arterial BP Standing (Pre-Dialysis) 86/47 mmHg BP Standing (P ost-Dialysis) 117/61 mmHg Sitting Heart Rate Pre-Dialysis 81 BPM Sitting Heart Rate Post-Dialysis 136 BPM Standing Heart Rate Pre-Dialysis 89 BPM Standing Heart Rate Post-Dialysis 87 BPM Temperature Pre-Dialysis 98.3 degF Temperature Post -Dialysis 98 degF October 04, 2024 In-Center Hemodialysis Treatment 0085-02-65Z41:02:42.000Z 1319-20-05Z19:01:02.000Z BP Sitting (Pre-Dialysis) 95/64 mmHg BP Sitting (Post-Dialysis) 100/57 mmHg Concurrent Access: falseCentral Venous Catheter (CVC) Chest (Right) Arterial BP Standing (Pre-Dialysis) 101/60 mmHg BP Standing (P ost-Dialysis) 105/49 mmHg Sitting Heart Rate Pre-Dialysis 86 BPM Sitting Heart Rate Post-Dialysis 81 BPM Standing Heart Rate Pre-Dialysis 89 BPM Standing Heart Rate Post-Dialysis 91 BPM Temperature Pre-Dialysis 97.5 degF Temperature Post -Dialysis 98.1 degF October 02, 2024 In-Center Hemodialysis Treatment 1492-57-51F89:05:25.000Z 3289-05-49T40:37:30.000Z BP Sitting (Pre-Dialysis) 86/46 mmHg BP Sitting (Post-Dialysis) 86/50 mmHg Concurrent Access: falseCentral Venous Catheter (CVC) Chest (Right) Arterial BP Standing (Pre-Dialysis) 70/54 mmHg BP Standing (P ost-Dialysis) 110/55 mmHg Sitting Heart Rate Pre-Dialysis 91 BPM Sitting Heart Rate Post-Dialysis 87 BPM Standing Heart Rate Pre-Dialysis 182 BPM Standing Heart Rate Post-Dialysis 112 BPM Temperature Pre-Dialysis 98 degF Temperature Post -Dialysis 98 degF September 30, 2024 In-Center Hemodialysis Treatment 6741-23-52E17:02:49.000Z 5442-22-64V63:42:24.000Z BP Sitting (Pre-Dialysis) 97/53 mmHg BP Sitting (Post-Dialysis) 104/55 mmHg Concurrent Access: falseCentral Venous Catheter (CVC) Chest (Right) Arterial BP Standing (Pre-Dialysis) 75/46 mmHg BP Standing (P ost-Dialysis) 114/62 mmHg Sitting Heart Rate Pre-Dialysis 85 BPM Sitting Heart Rate Post-Dialysis 80 BPM Standing Heart Rate Pre-Dialysis 96 BPM Standing Heart Rate Post-Dialysis 93 BPM Temperature Pre-Dialysis 97.8 degF Temperature Post -Dialysis 97.6 degF September 27, 2024 In-Center Hemodialysis Treatment 3538-96-05P04:00:45.000Z 6438-72-64I89:46:10.000Z BP Sitting (Pre-Dialysis) 101/55 mmHg BP Sitting (Post-Dialysis) 85/48 mmHg Concurrent Access: falseCentral Venous Catheter (CVC) Chest (Right) Arterial BP Standing (Pre-Dialysis) 86/49 mmHg BP Standing (P ost-Dialysis) 95/42 mmHg Sitting Heart Rate Pre-Dialysis 94 BPM Sitting H eart Rate Post-Dialysis 91 BPM Standing Heart Rate Pre-Dialysis 105 BPM Standing Heart Rate Post-Dialysis 107 BPM Temperature Pre-Dialysis 97.7 degF Temperature Post -Dialysis 97.8 degF September 25, 2024 In-Center Hemodialysis Treatment 6997-50-60N53:00:35.000Z 8009-53-00S03:58:05.000Z BP Sitting (Pre-Dialysis) 107/53 mmHg BP Sitting (Post-Dialysis) 123/46 mmHg Concurrent Access: falseCentral Venous Catheter (CVC) Chest (Right) Arterial BP Standing (Pre-Dialysis) 84/59 mmHg Sitti ng Heart Rate Post-Dialysis 64 BPM Sitting Heart Rate Pre-Dialysis 85 BPM Temperatu re Post-Dialysis 97.8 degF Standing Heart Rate Pre-Dialysis 101 BPM Temperature Pre-Dialysis 97.6 degF September 23, 2024 In-Center Hemodialysis Treatment 0884-52-31A04:08:23.000Z 0951-01-76Y80:50:28.000Z BP Sitting (Pre-Dialysis) 93/52 mmHg BP Sitting (Post-Dialysis) 83/49 mmHg Concurrent Access: falseCentral Venous Catheter (CVC) Chest (Right) Arterial BP Standing (Pre-Dialysis) 85/47 mmHg BP Standing (P ost-Dialysis) 116/66 mmHg Sitting Heart Rate Pre-Dialysis 84 BPM Sitting Heart Rate Post-Dialysis 86 BPM Standing Heart Rate Pre-Dialysis 92 BPM Standing Heart Rate Post-Dialysis 99 BPM Temperature Pre-Dialysis 98.1 degF Temperature Post -Dialysis 97.6 degF September 20, 2024 In-Center Hemodialysis Treatment 1118-30-35E35:58:28.000Z 5433-92-09A03:02:13.000Z BP Sitting (Pre-Dialysis) 98/53 mmHg BP Sitting (Post-Dialysis) 91/41 mmHg Concurrent Access: falseCentral Venous Catheter (CVC) Chest (Right) Arterial BP Standing (Pre-Dialysis) 94/63 mmHg BP Standing (P ost-Dialysis) 113/45 mmHg Sitting Heart Rate Pre-Dialysis 83 BPM Sitting Heart Rate Post-Dialysis 76 BPM Standing Heart Rate Pre-Dialysis 90 BPM Standing Heart Rate Post-Dialysis 107 BPM Temperature Pre-Dialysis 97.9 degF Temperature Post -Dialysis 98 degF September 18, 2024 In-Center Hemodialysis Treatment 2018-03-97G55:58:00.000Z 6960-16-27Z25:09:13.000Z BP Sitting (Pre-Dialysis) 100/58 mmHg BP Sitting (Post-Dialysis) 98/58 mmHg Concurrent Access: falseCentral Venous Catheter (CVC) Chest (Right) Arterial BP Standing (Pre-Dialysis) 92/44 mmHg BP Standing (P ost-Dialysis) 108/70 mmHg Sitting Heart Rate Pre-Dialysis 77 BPM Sitting Heart Rate Post-Dialysis 72 BPM Standing Heart Rate Pre-Dialysis 88 BPM Standing Heart Rate Post-Dialysis 84 BPM Temperature Pre-Dialysis 97.9 degF Temperature Post -Dialysis 97.7 degF September 16, 2024 In-Center Hemodialysis Treatment 7380-07-15O72:03:12.000Z 9447-75-54T32:08:37.000Z BP Sitting (Pre-Dialysis) 94/52 mmHg BP Sitting (Post-Dialysis) 81/49 mmHg Concurrent Access: falseCentral Venous Catheter (CVC) Chest (Right) Arterial Sitting Heart Rate Pre-Dialysis 83 BPM BP Standi ng (Post-Dialysis) 91/48 mmHg Temperature Pre-Dialysis 98.2 degF Sitting Heart Ra te Post-Dialysis 81 BPM Standing Heart Rate Post-Regina lysis 100 BPM Temperature Post-Dialysis 97 .3 degF September 13, 2024 In-Center Hemodialysis Treatment 4041-41-18O94:06:37.000Z 7268-21-27Z23:38:17.000Z BP Sitting (Pre-Dialysis) 107/61 mmHg BP Sitting (Post-Dialysis) 95/59 mmHg Concurrent Access: falseCentral Venous Catheter (CVC) Chest (Right) Arterial BP Standing (Pre-Dialysis) 101/60 mmHg BP Standing (P ost-Dialysis) 110/38 mmHg Sitting Heart Rate Pre-Dialysis 81 BPM Sitting Heart Rate Post-Dialysis 82 BPM Standing Heart Rate Pre-Dialysis 89 BPM Standing Heart Rate Post-Dialysis 94 BPM Temperature Pre-Dialysis 97.7 degF Temperature Post -Dialysis 97 degF September 11, 2024 In-Center Hemodialysis Treatment 1818-60-07Z58:55:00.000Z 1414-85-60F76:45:10.000Z BP Sitting (Pre-Dialysis) 100/63 mmHg BP Sitting (Post-Dialysis) 88/54 mmHg Concurrent Access: falseCentral Venous Catheter (CVC) Chest (Right) Arterial BP Standing (Pre-Dialysis) 110/57 mmHg BP Standing (P ost-Dialysis) 90/52 mmHg Sitting Heart Rate Pre-Dialysis 85 BPM Sitting Heart Rate Post-Dialysis 86 BPM Standing Heart Rate Pre-Dialysis 91 BPM Standing Heart Rate Post-Dialysis 89 BPM Temperature Pre-Dialysis 97.6 degF Temperature Post -Dialysis 97.9 degF September 09, 2024 In-Center Hemodialysis Treatment 4045-16-76S99:05:55.000Z 1187-64-52T86:09:40.000Z BP Sitting (Pre-Dialysis) 81/39 mmHg BP Sitting (Post-Dialysis) 82/52 mmHg Concurrent Access: falseCentral Venous Catheter (CVC) Chest (Right) Arterial BP Standing (Pre-Dialysis) 95/40 mmHg BP Standing (P ost-Dialysis) 87/52 mmHg Sitting Heart Rate Pre-Dialysis 80 BPM Sitting H eart Rate Post-Dialysis 76 BPM Standing Heart Rate Pre-Dialysis 100 BPM Standing Heart Rate Post-Dialysis 75 BPM Temperature Pre-Dialysis 98 degF Temperature Post -Dialysis 97.6 degF September 06, 2024 In-Center Hemodialysis Treatment 1400-66-92Y15:57:00.000Z 7577-58-30F10:59:06.000Z BP Sitting (Pre-Dialysis) 89/52 mmHg BP Sitting (Post-Dialysis) 92/56 mmHg Concurrent Access: falseCentral Venous Catheter (CVC) Chest (Right) Arterial BP Standing (Pre-Dialysis) 97/57 mmHg BP Standing (P ost-Dialysis) 98/56 mmHg Sitting Heart Rate Pre-Dialysis 79 BPM Sitting H eart Rate Post-Dialysis 78 BPM Standing Heart Rate Pre-Dialysis 86 BPM Standing Heart Rate Post-Dialysis 89 BPM Temperature Pre-Dialysis 97.6 degF Temperature Post -Dialysis 97.6 degF September 04, 2024 In-Center Hemodialysis Treatment 0170-86-76H99:56:00.000Z 9403-97-72V23:55:21.000Z BP Sitting (Pre-Dialysis) 119/61 mmHg BP Sitting (Post-Dialysis) 105/47 mmHg Concurrent Access: falseCentral Venous Catheter (CVC) Chest (Right) Arterial BP Standing (Pre-Dialysis) 126/59 mmHg BP Standing (P ost-Dialysis) 127/64 mmHg Sitting Heart Rate Pre-Dialysis 79 BPM Sitting Heart Rate Post-Dialysis 83 BPM Standing Heart Rate Pre-Dialysis 92 BPM Standing Heart Rate Post-Dialysis 103 BPM Temperature Pre-Dialysis 98 degF Temperature Post -Dialysis 98 degF September 02, 2024 In-Center Hemodialysis Treatment 6374-31-67S11:07:00.000Z 9073-80-90E15:11:23.000Z BP Sitting (Pre-Dialysis) 108/63 mmHg BP Sitting (Post-Dialysis) 73/27 mmHg Concurrent Access: falseCentral Venous Catheter (CVC) Chest (Right) Arterial BP Standing (Pre-Dialysis) 93/58 mmHg BP Standing (P ost-Dialysis) 118/64 mmHg Sitting Heart Rate Pre-Dialysis 80 BPM Sitting Heart Rate Post-Dialysis 99 BPM Standing Heart Rate Pre-Dialysis 87 BPM Standing Heart Rate Post-Dialysis 100 BPM Temperature Pre-Dialysis 97.8 degF Temperature Post -Dialysis 97.7 degF August 30, 2024 In-Center Hemodialysis Treatment 6627-72-08N27:00:27.000Z 9563-93-31W08:59:37.000Z BP Sitting (Pre-Dialysis) 104/59 mmHg BP Sitting (Post-Dialysis) 80/47 mmHg Concurrent Access: falseCentral Venous Catheter (CVC) Chest (Right) Arterial BP Standing (Pre-Dialysis) 83/56 mmHg BP Standing (P ost-Dialysis) 90/50 mmHg Sitting Heart Rate Pre-Dialysis 88 BPM Sitting H eart Rate Post-Dialysis 89 BPM Standing Heart Rate Pre-Dialysis 108 BPM Standing Heart Rate Post-Dialysis 98 BPM Temperature Pre-Dialysis 97.8 degF Temperature Post -Dialysis 98.1 degF August 28, 2024 In-Center Hemodialysis Treatment 5461-51-04A61:59:00.000Z 4129-03-77D73:14:27.000Z BP Sitting (Pre-Dialysis) 101/56 mmHg BP Sitting (Post-Dialysis) 231/149 mmHg Concurrent Access: falseCentral Venous Catheter (CVC) Chest (Right) Arterial BP Standing (Pre-Dialysis) 88/65 mmHg BP Standing (P ost-Dialysis) 143/104 mmHg Sitting Heart Rate Pre-Dialysis 75 BPM Sitting Heart Rate Post-Dialysis 102 BPM Standing Heart Rate Pre-Dialysis 85 BPM Standing Heart Rate Post-Dialysis 71 BPM Temperature Pre-Dialysis 97 degF Temperature Post -Dialysis 97.7 degF August 26, 2024 In-Center Hemodialysis Treatment 4261-99-61D97:04:00.000Z 3832-14-36I04:22:29.000Z BP Sitting (Pre-Dialysis) 99/47 mmHg BP Sitting (Post-Dialysis) 88/50 mmHg Concurrent Access: falseCentral Venous Catheter (CVC) Chest (Right) Arterial BP Standing (Pre-Dialysis) 111/42 mmHg BP Standing (P ost-Dialysis) 101/46 mmHg Sitting Heart Rate Pre-Dialysis 80 BPM Sitting Heart Rate Post-Dialysis 78 BPM Standing Heart Rate Pre-Dialysis 90 BPM Standing Heart Rate Post-Dialysis 95 BPM Temperature Pre-Dialysis 97.9 degF Temperature Post -Dialysis 98.1 degF August 23, 2024 In-Center Hemodialysis Treatment 6751-13-26L17:12:16.000Z 1302-84-14L65:25:11.000Z BP Sitting (Pre-Dialysis) 97/49 mmHg BP Sitting (Post-Dialysis) 102/46 mmHg Concurrent Access: falseCentral Venous Catheter (CVC) Chest (Right) Arterial BP Standing (Pre-Dialysis) 85/49 mmHg BP Standing (P ost-Dialysis) 108/45 mmHg Sitting Heart Rate Pre-Dialysis 79 BPM Sitting Heart Rate Post-Dialysis 74 BPM Standing Heart Rate Pre-Dialysis 92 BPM Standing Heart Rate Post-Dialysis 88 BPM Temperature Pre-Dialysis 97.9 degF Temperature Post -Dialysis 98.2 degF August 21, 2024 In-Center Hemodialysis Treatment [id number]:07:03.000Z 8617-98-83S58:38:18.000Z BP Sitting (Pre-Dialysis) 105/53 mmHg BP Sitting (Post-Dialysis) 94/46 mmHg Concurrent Access: falseCentral Venous Catheter (CVC) Chest (Right) Arterial BP Standing (Pre-Dialysis) 94/54 mmHg Sitting Heart Rate Post-Dialysis 78 BPM Sitting Heart Rate Pre-Dialysis 81 BPM Standing Heart Rate Pre-Dialysis 85 BPM Temperature Pre-Dialysis 97.7 degF August 19, 2024 In-Center Hemodialysis Treatment [id number]:01:00.000Z 4477-87-14Y99:58:03.000Z BP Sitting (Pre-Dialysis) 111/57 mmHg BP Sitting (Post-Dialysis) 87/47 mmHg Concurrent Access: falseCentral Venous Catheter (CVC) Chest (Right) Arterial BP Standing (Pre-Dialysis) 126/56 mmHg BP Standing (P ost-Dialysis) 110/51 mmHg Sitting Heart Rate Pre-Dialysis 72 BPM Sitting Heart Rate Post-Dialysis 77 BPM Standing Heart Rate Pre-Dialysis 86 BPM Standing Heart Rate Post-Dialysis 92 BPM Temperature Pre-Dialysis 98.2 degF Temperature Post -Dialysis 98.1 degF August 16, 2024 In-Center Hemodialysis Treatment [id number]:08:00.000Z 5767-64-03C93:24:21.000Z BP Sitting (Pre-Dialysis) 125/70 mmHg BP Sitting (Post-Dialysis) 94/51 mmHg Concurrent Access: falseCentral Venous Catheter (CVC) Chest (Right) Arterial BP Standing (Pre-Dialysis) 114/80 mmHg BP Standing (P ost-Dialysis) 90/52 mmHg Sitting Heart Rate Pre-Dialysis 87 BPM Sitting Heart Rate Post-Dialysis 70 BPM Standing Heart Rate Pre-Dialysis 98 BPM Standing Heart Rate Post-Dialysis 95 BPM Temperature Pre-Dialysis 97.6 degF Temperature Post -Dialysis 97.6 degF August 14, 2024 In-Center Hemodialysis Treatment [id number]:59:49.000Z [id number]:59:49.000Z BP Sitting (Pre-Dialysis) 106/62 mmHg BP Sitting (Post-Dialysis) 91/52 mmHg Concurrent Access: falseCentral Venous Catheter (CVC) Chest (Right) Arterial BP Standing (Pre-Dialysis) 105/55 mmHg BP Standing (P ost-Dialysis) 98/56 mmHg Sitting Heart Rate Pre-Dialysis 79 BPM Sitting Heart Rate Post-Dialysis 77 BPM Standing Heart Rate Pre-Dialysis 83 BPM Standing Heart Rate Post-Dialysis 68 BPM Temperature Pre-Dialysis 98 degF Temperature Post -Dialysis 97.4 degF August 12, 2024 In-Center Hemodialysis Treatment 0419-93-58W50:00:52.000Z 8821-74-34V30:15:02.000Z BP Sitting (Pre-Dialysis) 107/56 mmHg BP Sitting (Post-Dialysis) 103/49 mmHg Concurrent Access: falseCentral Venous Catheter (CVC) Chest (Right) Arterial BP Standing (Pre-Dialysis) 111/60 mmHg BP Standing (P ost-Dialysis) 99/46 mmHg Sitting Heart Rate Pre-Dialysis 78 BPM Sitting Heart Rate Post-Dialysis 78 BPM Standing Heart Rate Pre-Dialysis 80 BPM Standing Heart Rate Post-Dialysis 89 BPM Temperature Pre-Dialysis 97.7 degF Temperature Post -Dialysis 97.3 degF August 09, 2024 In-Center Hemodialysis Treatment 9320-92-12N82:05:17.000Z [id number]:36:57.000Z BP Sitting (Pre-Dialysis) 113/60 mmHg BP Sitting (Post-Dialysis) 88/47 mmHg Concurrent Access: falseCentral Venous Catheter (CVC) Chest (Right) Arterial BP Standing (Pre-Dialysis) 97/48 mmHg BP Standing (P ost-Dialysis) 91/48 mmHg Sitting Heart Rate Pre-Dialysis 83 BPM Sitting H eart Rate Post-Dialysis 78 BPM Standing Heart Rate Pre-Dialysis 85 BPM Standing Heart Rate Post-Dialysis 87 BPM Temperature Pre-Dialysis 97.2 degF Temperature Post -Dialysis 97.8 degF August 07, 2024 In-Center Hemodialysis Treatment [id number]:00:38.000Z 1343-51-85J03:37:18.000Z BP Sitting (Pre-Dialysis) 138/69 mmHg BP Sitting (Post-Dialysis) 96/55 mmHg Concurrent Access: falseCentral Venous Catheter (CVC) Chest (Right) Arterial BP Standing (Pre-Dialysis) 115/61 mmHg BP Standing (P ost-Dialysis) 103/64 mmHg Sitting Heart Rate Pre-Dialysis 91 BPM Sitting Heart Rate Post-Dialysis 92 BPM Standing Heart Rate Pre-Dialysis 102 BPM Standing Heart Rate Post-Dialysis 102 BPM Temperature Pre-Dialysis 98 degF Temperature Post -Dialysis 98.1 degF August 05, 2024 In-Center Hemodialysis Treatment [id number]:15:40.000Z 7902-16-12Q07:03:10.000Z BP Sitting (Pre-Dialysis) 117/64 mmHg BP Sitting (Post-Dialysis) 93/54 mmHg Concurrent Access: falseCentral Venous Catheter (CVC) Chest (Right) Arterial BP Standing (Pre-Dialysis) 117/59 mmHg BP Standing (P ost-Dialysis) 114/64 mmHg Sitting Heart Rate Pre-Dialysis 88 BPM Sitting Heart Rate Post-Dialysis 94 BPM Standing Heart Rate Pre-Dialysis 102 BPM Standing Heart Rate Post-Dialysis 93 BPM Temperature Pre-Dialysis 97.7 degF August 02, 2024 In-Center Hemodialysis Treatment [id number]:53:00.000Z 7364-02-69I33:14:19.000Z BP Sitting (Pre-Dialysis) 110/64 mmHg BP Sitting (Post-Dialysis) 79/36 mmHg Concurrent Access: falseCentral Venous Catheter (CVC) Chest (Right) Arterial BP Standing (Pre-Dialysis) 116/60 mmHg BP Standing (P ost-Dialysis) 97/46 mmHg Sitting Heart Rate Pre-Dialysis 85 BPM Sitting Heart Rate Post-Dialysis 83 BPM Standing Heart Rate Pre-Dialysis 91 BPM Standing Heart Rate Post-Dialysis 80 BPM Temperature Pre-Dialysis 98 degF Temperature Post -Dialysis 97.3 degF July 31, 2024 In-Center Hemodialysis Treatment [id number]:10:43.000Z 9123-12-15B73:19:03.000Z BP Sitting (Pre-Dialysis) 105/62 mmHg BP Sitting (Post-Dialysis) 94/50 mmHg Concurrent Access: falseCentral Venous Catheter (CVC) Chest (Right) Arterial BP Standing (Pre-Dialysis) 106/61 mmHg Sitti ng Heart Rate Post-Dialysis 70 BPM Sitting Heart Rate Pre-Dialysis 77 BPM Temperatu re Post-Dialysis 97.3 degF Standing Heart Rate Pre-Dialysis 86 BPM Temperature Pre-Dialysis 97.8 degF July 29, 2024 In-Center Hemodialysis Treatment 2329-23-57E06:08:40.000Z 5066-65-11S36:50:20.000Z BP Sitting (Pre-Dialysis) 112/55 mmHg BP Sitting (Post-Dialysis) 91/59 mmHg Concurrent Access: falseCentral Venous Catheter (CVC) Chest (Right) Arterial BP Standing (Pre-Dialysis) 108/49 mmHg BP Standing (P ost-Dialysis) 90/53 mmHg Sitting Heart Rate Pre-Dialysis 84 BPM Sitting Heart Rate Post-Dialysis 86 BPM Standing Heart Rate Pre-Dialysis 94 BPM Standing Heart Rate Post-Dialysis 88 BPM Temperature Pre-Dialysis 97.5 degF Temperature Post -Dialysis 97.2 degF July 26, 2024 In-Center Hemodialysis Treatment 1385-86-89F12:06:34.000Z 1909-99-41E93:02:39.000Z BP Sitting (Pre-Dialysis) 99/58 mmHg BP Sitting (Post-Dialysis) 123/60 mmHg Concurrent Access: falseCentral Venous Catheter (CVC) Chest (Right) Arterial BP Standing (Pre-Dialysis) 103/56 mmHg BP Standing (P ost-Dialysis) 104/50 mmHg Sitting Heart Rate Pre-Dialysis 86 BPM Sitting Heart Rate Post-Dialysis 82 BPM Standing Heart Rate Pre-Dialysis 84 BPM Standing Heart Rate Post-Dialysis 84 BPM Temperature Pre-Dialysis 98 degF July 24, 2024 In-Center Hemodialysis Treatment 2183-67-76O76:08:00.000Z 7142-62-64H61:13:25.000Z BP Sitting (Pre-Dialysis) 102/55 mmHg BP Sitting (Post-Dialysis) 93/49 mmHg Concurrent Access: falseCentral Venous Catheter (CVC) Chest (Right) Arterial BP Standing (Pre-Dialysis) 101/51 mmHg BP Standing (P ost-Dialysis) 83/43 mmHg Sitting Heart Rate Pre-Dialysis 80 BPM Sitting Heart Rate Post-Dialysis 72 BPM Standing Heart Rate Pre-Dialysis 91 BPM Standing Heart Rate Post-Dialysis 92 BPM Temperature Pre-Dialysis 97.7 degF Temperature Post -Dialysis 97.2 degF July 22, 2024 In-Center Hemodialysis Treatment 2586-29-09I73:07:02.000Z 2226-27-45Z73:01:12.000Z BP Sitting (Pre-Dialysis) 104/58 mmHg BP Sitting (Post-Dialysis) 93/49 mmHg Concurrent Access: falseCentral Venous Catheter (CVC) Chest (Right) Arterial BP Standing (Pre-Dialysis) 104/57 mmHg Sitting Heart Rate Post-Dialysis 92 BPM Sitting Heart Rate Pre-Dialysis 82 BPM Temperatu re Post-Dialysis 98 degF Standing Heart Rate Pre-Dialysis 87 BPM Temperature Pre-Dialysis 97.5 degF July 19, 2024 In-Center Hemodialysis Treatment 0782-80-46I71:01:00.000Z 5682-10-67L38:47:37.000Z BP Sitting (Pre-Dialysis) 176/83 mmHg BP Sitting [...] degF July 17, 2024 In-Center Hemodialysis Treatment 6456-67-57N16:01:00.000Z 3370-55-42P41:48:41.000Z BP Sitting (Pre-Dialysis) 118/67 mmHg BP Sitting [...] degF July 15, 2024 In-Center Hemodialysis Treatment 4501-56-94M85:06:51.000Z 0484-81-46M80:35:36.000Z BP Sitting (Pre-Dialysis) 99/49 mmHg BP Sitting [...] degF July 12, 2024 In-Center Hemodialysis Treatment 3811-81-73C97:59:00.000Z 6619-60-25R39:30:18.000Z BP Sitting (Pre-Dialysis) 106/62 mmHg BP Sitting (Post-Dialysis) 106/90 mmHg Concurrent Access: falseCentral Venous Catheter (CVC) Chest (Right) Arterial BP Standing (Pre-Dialysis) 103/52 mmHg Sitti ng Heart Rate Post-Dialysis 76 BPM Sitting Heart Rate Pre-Dialysis 94 BPM Temperatu re Post-Dialysis 98.2 degF Standing Heart Rate Pre-Dialysis 104 BPM Temperature Pre-Dialysis 98 degF July 10, 2024 In-Center Hemodialysis Treatment 8713-07-24C36:07:44.000Z 6145-03-20F34:46:04.000Z BP Sitting (Pre-Dialysis) 107/61 mmHg BP Sitting (Post-Dialysis) 106/91 mmHg Concurrent Access: falseCentral Venous Catheter (CVC) Chest (Right) Arterial BP Standing (Pre-Dialysis) 108/57 mmHg Sitti ng Heart Rate Post-Dialysis 77 BPM Sitting Heart Rate Pre-Dialysis 79 BPM Temperatu re Post-Dialysis 98.3 degF Standing Heart Rate Pre-Dialysis 90 BPM Temperature Pre-Dialysis 98 degF July 08, 2024 In-Center Hemodialysis Treatment 1735-41-12H68:06:00.000Z 3787-26-70B86:59:22.000Z BP Sitting (Pre-Dialysis) 113/68 mmHg BP Sitting [...] degF July 05, 2024 In-Center Hemodialysis Treatment 4258-57-82R05:10:30.000Z 0051-79-63D34:16:20.000Z BP Sitting (Pre-Dialysis) 98/58 mmHg BP Sitting [...] degF July 03, 2024 In-Center Hemodialysis Treatment 0490-35-48K24:01:54.000Z 7335-62-44G57:48:09.000Z BP Sitting (Pre-Dialysis) 92/56 mmHg BP Sitting (Post-Dialysis) 105/62 mmHg Concurrent Access: falseCentral Venous Catheter (CVC) Chest (Right) Arterial BP Standing (Pre-Dialysis) 91/50 mmHg BP Standing (P ost-Dialysis) 99/43 mmHg Sitting Heart Rate Pre-Dialysis 89 BPM Sitting H eart Rate Post-Dialysis 90 BPM Standing Heart Rate Pre-Dialysis 87 BPM Standing Heart Rate Post-Dialysis 96 BPM Temperature Pre-Dialysis 97.8 degF Temperature Post -Dialysis 98.4 degF July 01, 2024 In-Center Hemodialysis Treatment 6049-22-55K40:58:54.000Z 9727-60-70E85:16:23.000Z BP Sitting (Pre-Dialysis) 94/57 mmHg BP Sitting [...] degF June 28, 2024 In-Center Hemodialysis Treatment 3981-15-87O34:57:00.000Z 0344-25-21G32:57:00.000Z BP Sitting (Pre-Dialysis) 111/62 mmHg BP Sitting [...] degF June 26, 2024 In-Center Hemodialysis Treatment 6926-96-56I11:29:42.000Z 7656-55-86Z74:29:17.000Z BP Sitting (Pre-Dialysis) 102/55 mmHg BP Sitting [...] degF June 24, 2024 In-Center Hemodialysis Treatment 8827-75-58F82:42:00.000Z 1012-54-29P96:08:31.000Z BP Sitting (Pre-Dialysis) 99/55 mmHg BP Sitting (Post-Dialysis) 97/53 mmHg Concurrent Access: falseCentral Venous Catheter (CVC) Chest (Right) Arterial BP Standing (Pre-Dialysis) 91/61 mmHg BP Standing (P ost-Dialysis) 98/54 mmHg Sitting Heart Rate Pre-Dialysis 92 BPM Sitting H eart Rate Post-Dialysis 97 BPM Standing Heart Rate Pre-Dialysis 103 BPM Standing Heart Rate Post-Dialysis 99 BPM Temperature Pre-Dialysis 97.6 degF Temperature Post -Dialysis 97.7 degF June 21, 2024 In-Center Hemodialysis Treatment 0590-73-12O01:26:00.000Z 4768-56-14F17:22:23.000Z BP Sitting (Pre-Dialysis) 95/55 mmHg BP Sitting [...] degF June 19, 2024 In-Center Hemodialysis Treatment 8949-73-36P22:16:00.000Z 0946-21-97M57:58:58.000Z BP Sitting (Pre-Dialysis) 113/60 mmHg BP Sitting (Post-Dialysis) 103/60 mmHg Concurrent Access: falseCentral Venous Catheter (CVC) Chest (Right) Arterial BP Standing (Pre-Dialysis) 122/64 mmHg BP Standing (P ost-Dialysis) 100/57 mmHg Sitting Heart Rate Pre-Dialysis 87 BPM Sitting Heart Rate Post-Dialysis 90 BPM Standing Heart Rate Pre-Dialysis 92 BPM Standing Heart Rate Post-Dialysis 94 BPM Temperature Pre-Dialysis 97.8 degF Temperature Post -Dialysis 98 degF June 17, 2024 In-Center Hemodialysis Treatment 7360-84-33X77:02:00.000Z 3391-61-43C27:05:47.000Z BP Sitting (Pre-Dialysis) 102/60 mmHg BP Sitting (Post-Dialysis) 108/61 mmHg Concurrent Access: falseCentral Venous Catheter (CVC) Chest (Right) Arterial BP Standing (Pre-Dialysis) 90/54 mmHg Sitti ng Heart Rate Post-Dialysis 86 BPM Sitting Heart Rate Pre-Dialysis 90 BPM Temperatu re Post-Dialysis 97.9 degF Standing Heart Rate Pre-Dialysis 101 BPM Temperature Pre-Dialysis 97.6 degF June 14, 2024 In-Center Hemodialysis Treatment [id number]:40:56.000Z 2216-30-08L01:00:31.000Z BP Sitting (Pre-Dialysis) 104/54 mmHg BP Sitting [...] degF June 12, 2024 In-Center Hemodialysis Treatment 2121-24-82J34:48:56.000Z 3343-44-06T06:42:41.000Z BP Sitting (Pre-Dialysis) 94/53 mmHg BP Sitting [...] degF June 10, 2024 In-Center Hemodialysis Treatment 9038-67-98L65:00:00.000Z 1256-65-45D04:17:21.000Z BP Sitting (Pre-Dialysis) 99/59 mmHg BP Sitting [...] degF June 07, 2024 In-Center Hemodialysis Treatment 3683-06-80V43:54:00.000Z 4011-13-70B31:55:45.000Z BP Sitting (Pre-Dialysis) 108/57 mmHg BP Sitting [...] degF June 05, 2024 In-Center Hemodialysis Treatment 3800-28-65X77:49:37.000Z 1384-10-32X71:49:37.000Z BP Sitting (Pre-Dialysis) 119/57 mmHg BP Sitting [...] degF June 03, 2024 In-Center Hemodialysis Treatment 6706-09-61F86:39:00.000Z 7761-14-65Z90:11:29.000Z BP Sitting (Pre-Dialysis) 91/50 mmHg BP Sitting [...] degF May 31, 2024 In-Center Hemodialysis Treatment 5646-65-91U77:20:35.000Z 0142-75-82I74:30:10.000Z BP Sitting (Pre-Dialysis) 106/58 mmHg BP Sitting [...] degF May 29, 2024 In-Center Hemodialysis Treatment 2379-85-29M55:43:34.000Z 8527-05-97J33:43:09.000Z BP Sitting (Pre-Dialysis) 95/51 mmHg BP Sitting [...] degF May 27, 2024 In-Center Hemodialysis Treatment 6855-37-44G32:53:00.000Z 3578-49-34M80:01:00.000Z BP Sitting (Pre-Dialysis) 94/50 mmHg BP Sitting [...] degF May 24, 2024 In-Center Hemodialysis Treatment 5915-89-57K94:56:00.000Z 1567-95-91V07:12:13.000Z BP Sitting (Pre-Dialysis) 103/57 mmHg BP Sitting [...] degF May 22, 2024 In-Center Hemodialysis Treatment 7093-35-75Q18:11:14.000Z 9998-52-33X95:12:54.000Z BP Sitting (Pre-Dialysis) 90/50 mmHg BP Sitting (Post-Dialysis) 100/51 mmHg Concurrent Access: falseCentral Venous Catheter (CVC) Chest (Right) Arterial Sitting Heart Rate Pre-Dialysis 91 BPM BP Standing (Post-Dialysis) 106/57 mmHg Temperature Pre-Dialysis 97.2 degF Sitting Heart Ra te Post-Dialysis 88 BPM Standing Heart Rate Post-[place] lysis 99 BPM Temperature Post-Dialysis 98 degF May 20, 2024 In-Center Hemodialysis Treatment 1155-52-87F36:37:00.000Z 7716-26-67N53:51:12.000Z BP Sitting (Pre-Dialysis) 99/49 mmHg BP Sitting [...] degF May 17, 2024 In-Center Hemodialysis Treatment 6896-91-15B49:02:00.000Z 2993-25-58E51:15:12.000Z BP Sitting (Pre-Dialysis) 101/74 mmHg BP Sitting (Post-Dialysis) 101/67 mmHg Concurrent Access: falseCentral Venous Catheter (CVC) Chest (Right) Arterial Sitting Heart Rate Pre-Dialysis 89 BPM Sitting H eart Rate Post-Dialysis 66 BPM Temperature Pre-Dialysis 97.7 degF Temperature Post -Dialysis 98.2 degF May 15, 2024 In-Center Hemodialysis Treatment 8394-34-57F14:34:00.000Z 1116-06-69P59:50:13.000Z BP Sitting (Pre-Dialysis) 108/60 mmHg BP Sitting (Post-Dialysis) 100/59 mmHg Concurrent Access: falseCentral Venous Catheter (CVC) Chest (Right) Arterial Sitting Heart Rate Pre-Dialysis 88 BPM Sitting H eart Rate Post-Dialysis 95 BPM Temperature Pre-Dialysis 98 degF Temperature Post -Dialysis 98 degF DIALYSIS ORDER Dialysis Procedure Orders Type of Dialysis Procedure Order Order Date/Time Observations In-Center Hemodialysis Treatment October 25, 2024 Target Weight 57 kg Dialysate Flow Rate 500 mL/min Blood [...] /L Dialysate Bath Calcium Calcium 2.5 mEq/L In-Center Hemodialysis TreatmentAugust 20, 2024 Observation Value Target Weight 56.5 kg Dialysate Flow Rate 500 mL/min Blood Flow Rate 400 mL/min Treatment Time 180 min(total) Max UF Rate 13 mL/kg/hr Base Sodium Dialysate Base Sodium 138 mE q/L dialysate_temp 35.5 C BiCarb Dialysate BiCarbonate 38 meq/L Access Concurrent No Arterial Access Central Venous [place] [facility] (CVC) (Chest (Right)) Venous Access Central [facility]ous [place] [facility] (CVC) (Chest (Right)) Dialyzer Nipro Elisio 15H 126 4 [email or web address] Dialysate Bath Potassium Potassium 4 mEq /L Dialysate Bath Calcium Calcium 2.5 mEq/L In-Center Hemodialysis TreatmentApr2024 Observation Value Target Weight 53 kg Dialysate Flow Rate 500 mL/min Blood Flow Rate 400 mL/min Treatment Time 180 min(total) Max UF Rate 13 mL/kg/hr Base Sodium Dialysate Base Sodium 138 mE q/L dialysate_temp 35.5 C BiCarb Dialysate BiCarbonate 38 meq/L Access Concurrent No Arterial Access Central Venous [place] [facility] (CVC) (Chest (Right)) Venous Access Central Venous [place] [facility] (CVC) (Chest (Right)) Dialyzer Nipro Elisio 15H 126 4 [email or web address] Dialysate Bath Potassium Potassium 4 mEq /L Dialysate Bath Calcium Calcium 2.5 mEq/L Results Adequacy Description Draw Date Result/Unit Status Ref Range Result Comments Creatinine [Mass/volume] in Serum or Plasma 2024-11-08 18:04:13 8.18 mg/dL F 0.55-1.02 WEIGHT - POST DAY 1 2024-10-24 15:48:03 57.7 kg F WEIGHT (KG) 2024-10-24 15:48:03 56.5 kg F PRESCRIBED DAYS/WEEK 2024-10-24 15:48:03 3 Day/Wk F Residual kt/v 2024-10-24 15:48:03 F Total Kt/V 2024-10-24 15:48:03 1.32 F AMPUTATE FACTOR 2024-10-24 15:48:03 0 F stdKt/V (DIAL) 2024-10-24 15:48:03 N/A F Std Renal KT/V 2024-10-24 15:48:03 N/A F VT (KT/V TX VOL) 2024-10-24 15:48:03 26.2 L F BSA RADHA 2024-10-24 15:48:03 1.62 sq m F TOTAL HOURS/WEEK DIALYSIS 2024-10-24 15:48:03 8 hrs F URR% 2024-10-24 15:48:03 70 % F DIALYZER FLOW-QD 2024-10-24 15:48:03 500 mL/min F WEIGHT - PRE DAY 1 2024-10-24 15:48:03 58.7 kg F stdKT/V Total 2024-10-24 15:48:03 N/A F HEIGHT IN INCHES 2024-10-24 15:48:03 65 Inches F VM (KT/V MEAN VOL) 2024-10-24 15:48:03 27.8 F KT/V PRESCRIBED 2024-10-24 15:48:03 1.42 F nPCR 2024-10-24 15:48:03 0.81 G/KG/D F TBW (Roman) 2024-10-24 15:48:03 29.78 Liters F spKt/V 2024-10-24 15:48:03 1.32 F eKt/V 2024-10-24 15:48:03 1.03 F CURRENT KRU 2024-10-24 15:48:03 F BLOOD FLOW-QWB 2024-10-24 15:48:03 399 F WEIGHT - POST DAY 1 2024-10-24 15:48:03 57.7 kg F BLOOD FLOW-QWB 2024-10-24 15:48:03 399 F VT (KT/V TX VOL) 2024-10-24 15:48:03 26.2 L F HEIGHT IN INCHES 2024-10-24 15:48:03 65 Inches F stdKt/V (DIAL) 2024-10-24 15:48:03 N/A F WEIGHT (KG) 2024-10-24 15:48:03 56.5 kg F TOTAL HOURS/WEEK DIALYSIS 2024-10-24 15:48:03 8 hrs F nPCR 2024-10-24 15:48:03 0.81 G/KG/D F VM (KT/V MEAN VOL) 2024-10-24 15:48:03 27.8 F spKt/V 2024-10-24 15:48:03 1.32 F LENGTH OF DIALYSIS 2024-10-24 15:48:03 128 min F KT/V PRESCRIBED 2024-10-24 15:48:03 1.42 F Dialyzer SILVIA 2024-10-24 15:48:03 1264 Calc F DIALYZER FLOW-QD 2024-10-24 15:48:03 500 mL/min F CURRENT KRU 2024-10-24 15:48:03 F BSA RADHA 2024-10-24 15:48:03 1.62 sq m F Total Kt/V 2024-10-24 15:48:03 1.32 F AMPUTATE FACTOR 2024-10-24 15:48:03 0 F URR% 2024-10-24 15:48:03 70 % F eKt/V 2024-10-24 15:48:03 1.03 F stdKT/V Total 2024-10-24 15:48:03 N/A F WEIGHT - PRE DAY 1 2024-10-24 15:48:03 58.7 kg F Std Renal KT/V 2024-10-24 15:48:03 N/A F Residual kt/v 2024-10-24 15:48:03 F PATIENT AGE 2024-10-24 15:48:03 59 Years F PRESCRIBED DAYS/WEEK 2024-10-24 15:48:03 3 Day/Wk F TBW (Roman) 2024-10-24 15:48:03 29.78 Liters F Dialyzer SILVIA 2024-10-24 15:48:03 1264 Calc F LENGTH OF DIALYSIS 2024-10-24 15:48:03 128 min F PATIENT AGE 2024-10-24 15:48:03 59 Years F Urea nitrogen [Mass/volume] in Serum or Plasma 2024-10-24 15:46:22 43 mg/dL F 9.0-23.0 Urea nitrogen [Mass/volume] in Serum or Plasma 2024-10-24 15:46:22 43 mg/dL F 9.0-23.0 Urea nitrogen [Mass/volume] in Serum or Plasma --post dialysis 2024-10-24 15:29:23 13 mg/dL F 9.0-23.0 Urea nitrogen [Mass/volume] in Serum or Plasma --post dialysis 2024-10-24 15:29:23 13 mg/dL F 9.0-23.0 Creatinine [Mass/volume] in Serum or Plasma 2024-10-10 13:27:18 8.53 mg/dL F 0.55-1.02 Creatinine [Mass/volume] in Serum or Plasma 2024-10-10 13:27:18 8.53 mg/dL F 0.55-1.02 DIALYZER FLOW-QD 2024-09-26 22:45:04 500 mL/min F Dialyzer SILVIA 2024-09-26 22:45:04 1264 Calc F WEIGHT - PRE DAY 1 2024-09-26 22:45:04 57.8 kg F WEIGHT (KG) 2024-09-26 22:45:04 56.5 kg F PRESCRIBED DAYS/WEEK 2024-09-26 22:45:04 3 Day/Wk F Total Kt/V 2024-09-26 22:45:04 1.69 F eKt/V 2024-09-26 22:45:04 1.38 F stdKt/V (DIAL) 2024-09-26 22:45:04 N/A F Std Renal KT/V 2024-09-26 22:45:04 N/A F TOTAL HOURS/WEEK DIALYSIS 2024-09-26 22:45:04 8 hrs F CURRENT KRU 2024-09-26 22:45:04 F URR% 2024-09-26 22:45:04 78 % F LENGTH OF DIALYSIS 2024-09-26 22:45:04 167 min F PATIENT AGE 2024-09-26 22:45:04 59 Years F BSA RADHA 2024-09-26 22:45:04 1.62 sq m F WEIGHT - POST DAY 1 2024-09-26 22:45:04 56.5 kg F HEIGHT IN INCHES 2024-09-26 22:45:04 65 Inches F VT (KT/V TX VOL) 2024-09-26 22:45:04 26.6 L F Residual kt/v 2024-09-26 22:45:04 F KT/V PRESCRIBED 2024-09-26 22:45:04 1.85 F nPCR 2024-09-26 22:45:04 0.86 G/KG/D F AMPUTATE FACTOR 2024-09-26 22:45:04 0 F TBW (Roman) 2024-09-26 22:45:04 29.49 Liters F spKt/V 2024-09-26 22:45:04 1.69 F stdKT/V Total 2024-09-26 22:45:04 N/A F BLOOD FLOW-QWB 2024-09-26 22:45:04 399 F VM (KT/V MEAN VOL) 2024-09-26 22:45:04 28.3 F stdKT/V Total 2024-09-26 22:45:04 N/A F TOTAL HOURS/WEEK DIALYSIS 2024-09-26 22:45:04 8 hrs F PATIENT AGE 2024-09-26 22:45:04 59 Years F KT/V PRESCRIBED 2024-09-26 22:45:04 1.85 F WEIGHT - PRE DAY 1 2024-09-26 22:45:04 57.8 kg F WEIGHT - POST DAY 1 2024-09-26 22:45:04 56.5 kg F Dialyzer SILVIA 2024-09-26 22:45:04 1264 Calc F BLOOD FLOW-QWB 2024-09-26 22:45:04 399 F DIALYZER FLOW-QD 2024-09-26 22:45:04 500 mL/min F HEIGHT IN INCHES 2024-09-26 22:45:04 65 Inches F VT (KT/V TX VOL) 2024-09-26 22:45:04 26.6 L F CURRENT KRU 2024-09-26 22:45:04 F WEIGHT (KG) 2024-09-26 22:45:04 56.5 kg F stdKt/V (DIAL) 2024-09-26 22:45:04 N/A F LENGTH OF DIALYSIS 2024-09-26 22:45:04 167 min F PRESCRIBED DAYS/WEEK 2024-09-26 22:45:04 3 Day/Wk F VM (KT/V MEAN VOL) 2024-09-26 22:45:04 28.3 F URR% 2024-09-26 22:45:04 78 % F eKt/V 2024-09-26 22:45:04 1.38 F TBW (Roman) 2024-09-26 22:45:04 29.49 Liters F Total Kt/V 2024-09-26 22:45:04 1.69 F AMPUTATE FACTOR 2024-09-26 22:45:04 0 F Std Renal KT/V 2024-09-26 22:45:04 N/A F BSA RADHA 2024-09-26 22:45:04 1.62 sq m F Residual kt/v 2024-09-26 22:45:04 F spKt/V 2024-09-26 22:45:04 1.69 F nPCR 2024-09-26 22:45:04 0.86 G/KG/D F Urea nitrogen [Mass/volume] in Serum or Plasma 2024-09-26 22:43:13 40 mg/dL F 9.0-23.0 Urea nitrogen [Mass/volume] in Serum or Plasma 2024-09-26 22:43:13 40 mg/dL F 9.0-23.0 Urea nitrogen [Mass/volume] in Serum or Plasma --post dialysis 2024-09-26 18:50:17 9 mg/dL F 9.0-23.0 Urea nitrogen [Mass/volume] in Serum or Plasma --post dialysis 2024-09-26 18:50:17 9 mg/dL F 9.0-23.0 HEIGHT IN INCHES 2024-09-25 19:59:16 65 Inches F PATIENT AGE 2024-09-25 19:59:16 59 Years F WEIGHT (KG) 2024-09-25 19:59:16 56.5 kg F AMPUTATE FACTOR 2024-09-25 19:59:15 0 F Creatinine [Mass/volume] in Serum or Plasma 2024-09-07 15:39:12 8.29 mg/dL F 0.55-1.02 Creatinine [Mass/volume] in Serum or Plasma 2024-09-07 15:39:12 8.29 mg/dL F 0.55-1.02 URR% 2024-08-24 05:21:37 71 % F WEIGHT - PRE DAY 1 2024-08-24 05:21:37 57.7 kg F HEIGHT IN INCHES 2024-08-24 05:21:37 65 Inches F PRESCRIBED DAYS/WEEK 2024-08-24 05:21:37 3 Day/Wk F AMPUTATE FACTOR 2024-08-24 05:21:37 0 F TBW (Roman) 2024-08-24 05:21:37 29.46 Liters F spKt/V 2024-08-24 05:21:37 1.39 F stdKT/V Total 2024-08-24 05:21:37 N/A F CURRENT KRU 2024-08-24 05:21:37 F DIALYZER FLOW-QD 2024-08-24 05:21:37 500 mL/min F Dialyzer SILVIA 2024-08-24 05:21:37 1264 Calc F LENGTH OF DIALYSIS 2024-08-24 05:21:37 139 min F PATIENT AGE 2024-08-24 05:21:37 59 Years F BSA RADHA 2024-08-24 05:21:37 1.62 sq m F WEIGHT - POST DAY 1 2024-08-24 05:21:37 56.4 kg F WEIGHT (KG) 2024-08-24 05:21:37 56.5 kg F VT (KT/V TX VOL) 2024-08-24 05:21:37 26.9 L F VM (KT/V MEAN VOL) 2024-08-24 05:21:37 28.9 F KT/V PRESCRIBED 2024-08-24 05:21:37 1.54 F Residual kt/v 2024-08-24 05:21:37 F nPCR 2024-08-24 05:21:37 0.97 G/KG/D F eKt/V 2024-08-24 05:21:37 1.11 F stdKt/V (DIAL) 2024-08-24 05:21:37 N/A F Std Renal KT/V 2024-08-24 05:21:37 N/A F Total Kt/V 2024-08-24 05:21:37 1.39 F BLOOD FLOW-QWB 2024-08-24 05:21:37 399 F TOTAL HOURS/WEEK DIALYSIS 2024-08-24 05:21:37 7 hrs F Residual kt/v 2024-08-24 05:21:37 F PATIENT AGE 2024-08-24 05:21:37 59 Years F WEIGHT (KG) 2024-08-24 05:21:37 56.5 kg F Dialyzer SILVIA 2024-08-24 05:21:37 1264 Calc F nPCR 2024-08-24 05:21:37 0.97 G/KG/D F DIALYZER FLOW-QD 2024-08-24 05:21:37 500 mL/min F WEIGHT - POST DAY 1 2024-08-24 05:21:37 56.4 kg F eKt/V 2024-08-24 05:21:37 1.11 F Std Renal KT/V 2024-08-24 05:21:37 N/A F TOTAL HOURS/WEEK DIALYSIS 2024-08-24 05:21:37 7 hrs F VT (KT/V TX VOL) 2024-08-24 05:21:37 26.9 L F stdKt/V (DIAL) 2024-08-24 05:21:37 N/A F BLOOD FLOW-QWB 2024-08-24 05:21:37 399 F VM (KT/V MEAN VOL) 2024-08-24 05:21:37 28.9 F LENGTH OF DIALYSIS 2024-08-24 05:21:37 139 min F BSA RADHA 2024-08-24 05:21:37 1.62 sq m F KT/V PRESCRIBED 2024-08-24 05:21:37 1.54 F WEIGHT - PRE DAY 1 2024-08-24 05:21:37 57.7 kg F stdKT/V Total 2024-08-24 05:21:37 N/A F URR% 2024-08-24 05:21:37 71 % F spKt/V 2024-08-24 05:21:37 1.39 F AMPUTATE FACTOR 2024-08-24 05:21:37 0 F PRESCRIBED DAYS/WEEK 2024-08-24 05:21:37 3 Day/Wk F HEIGHT IN INCHES 2024-08-24 05:21:37 65 Inches F TBW (Roman) 2024-08-24 05:21:37 29.46 Liters F Total Kt/V 2024-08-24 05:21:37 1.39 F CURRENT KRU 2024-08-24 05:21:37 F AMPUTATE FACTOR 2024-08-24 05:21:37 0 F PATIENT AGE 2024-08-24 05:21:37 59 Years F URR% 2024-08-24 05:21:37 71 % F spKt/V 2024-08-24 05:21:37 1.39 F Residual kt/v 2024-08-24 05:21:37 F stdKT/V Total 2024-08-24 05:21:37 N/A F WEIGHT - PRE DAY 1 2024-08-24 05:21:37 57.7 kg F eKt/V 2024-08-24 05:21:37 1.11 F PRESCRIBED DAYS/WEEK 2024-08-24 05:21:37 3 Day/Wk F TBW (Roman) 2024-08-24 05:21:37 29.46 Liters F WEIGHT - POST DAY 1 2024-08-24 05:21:37 56.4 kg F TOTAL HOURS/WEEK DIALYSIS 2024-08-24 05:21:37 7 hrs F DIALYZER FLOW-QD 2024-08-24 05:21:37 500 mL/min F Dialyzer SILVIA 2024-08-24 05:21:37 1264 Calc F stdKt/V (DIAL) 2024-08-24 05:21:37 N/A F VT (KT/V TX VOL) 2024-08-24 05:21:37 26.9 L F CURRENT KRU 2024-08-24 05:21:37 F nPCR 2024-08-24 05:21:37 0.97 G/KG/D F VM (KT/V MEAN VOL) 2024-08-24 05:21:37 28.9 F BSA RADHA 2024-08-24 05:21:37 1.62 sq m F HEIGHT IN INCHES 2024-08-24 05:21:37 65 Inches F Std Renal KT/V 2024-08-24 05:21:37 N/A F LENGTH OF DIALYSIS 2024-08-24 05:21:37 139 min F WEIGHT (KG) 2024-08-24 05:21:37 56.5 kg F BLOOD FLOW-QWB 2024-08-24 05:21:37 399 F KT/V PRESCRIBED 2024-08-24 05:21:37 1.54 F Total Kt/V 2024-08-24 05:21:37 1.39 F Urea nitrogen [Mass/volume] in Serum or Plasma 2024-08-24 05:20:11 52 mg/dL F 9.0-23.0 Urea nitrogen [Mass/volume] in Serum or Plasma 2024-08-24 05:20:11 52 mg/dL F 9.0-23.0 Urea nitrogen [Mass/volume] in Serum or Plasma 2024-08-24 05:20:11 52 mg/dL F 9.0-23.0 Urea nitrogen [Mass/volume] in Serum or Plasma --post dialysis 2024-08-23 17:26:13 15 mg/dL F 9.0-23.0 Urea nitrogen [Mass/volume] in Serum or Plasma --post dialysis 2024-08-23 17:26:13 15 mg/dL F 9.0-23.0 Urea nitrogen [Mass/volume] in Serum or Plasma --post dialysis 2024-08-23 17:26:13 15 mg/dL F 9.0-23.0 VT (KT/V TX VOL) 2024-07-26 12:43:12 23.9 L F WEIGHT - PRE DAY 1 2024-07-26 12:43:12 56.5 kg F DIALYZER FLOW-QD 2024-07-26 12:43:12 500 mL/min F HEIGHT IN INCHES 2024-07-26 12:43:12 65 Inches F stdKt/V (DIAL) 2024-07-26 12:43:12 N/A F spKt/V 2024-07-26 12:43:12 1.6 F BSA RADHA 2024-07-26 12:43:12 1.57 sq m F stdKT/V Total 2024-07-26 12:43:12 N/A F WEIGHT (KG) 2024-07-26 12:43:12 53 kg F BLOOD FLOW-QWB 2024-07-26 12:43:12 306 F Dialyzer SILVIA 2024-07-26 12:43:12 1264 Calc F Residual kt/v 2024-07-26 12:43:12 F TBW (Roman) 2024-07-26 12:43:12 29.16 Liters F AMPUTATE FACTOR 2024-07-26 12:43:12 0 F VM (KT/V MEAN VOL) 2024-07-26 12:43:12 29.6 F eKt/V 2024-07-26 12:43:12 1.3 F WEIGHT - POST DAY 1 2024-07-26 12:43:12 55.2 kg F LENGTH OF DIALYSIS 2024-07-26 12:43:12 162 min F Total Kt/V 2024-07-26 12:43:12 1.6 F PRESCRIBED DAYS/WEEK 2024-07-26 12:43:12 3 Day/Wk F KT/V PRESCRIBED 2024-07-26 12:43:12 1.85 F nPCR 2024-07-26 12:43:12 1.13 G/KG/D F Std Renal KT/V 2024-07-26 12:43:12 N/A F PATIENT AGE 2024-07-26 12:43:12 59 Years F URR% 2024-07-26 12:43:12 75 % F CURRENT KRU 2024-07-26 12:43:12 F TOTAL HOURS/WEEK DIALYSIS 2024-07-26 12:43:12 7 hrs F Urea nitrogen [Mass/volume] in Serum or Plasma 2024-07-26 12:41:16 57 mg/dL F 9.0-23.0 Creatinine [Mass/volume] in Serum or Plasma 2024-07-26 12:41:16 6.28 mg/dL F 0.5-1.1 Urea nitrogen [Mass/volume] in Serum or Plasma --post dialysis 2024-07-26 05:41:24 14 mg/dL F 9.0-23.0 PATIENT AGE 2024-07-24 20:01:49 59 Years F AMPUTATE FACTOR 2024-07-24 20:01:49 0 F HEIGHT IN INCHES 2024-07-24 20:01:49 65 Inches F WEIGHT (KG) 2024-07-24 20:01:49 53 kg F WEIGHT - PRE DAY 1 2024-06-28 01:37:11 54.2 kg F WEIGHT (KG) 2024-06-28 01:37:11 52 kg F spKt/V 2024-06-28 01:37:11 1.57 F VT (KT/V TX VOL) 2024-06-28 01:37:11 30.7 L F BSA RADHA 2024-06-28 01:37:11 1.56 sq m F WEIGHT - POST DAY 1 2024-06-28 [...] F AMPUTATE FACTOR 2024-06-28 01:37:11 0 F Residual kt/v 2024-06-28 01:37:11 F KT/V PRESCRIBED 2024-06-28 01:37:11 2.06 F URR% 2024-06-28 01:37:11 75 % F VM (KT/V MEAN VOL) 2024-06-28 01:37:11 31.5 F stdKt/V (DIAL) 2024-06-28 01:37:11 N/A F LENGTH OF DIALYSIS 2024-06-28 01:37:11 179 min F HEIGHT IN INCHES 2024-06-28 01:37:11 65 Inches F Urea nitrogen [Mass/volume] in Serum or Plasma 2024-06-28 01:16:20 56 mg/dL F 9.0-23.0 Urea nitrogen [Mass/volume] in Serum or Plasma --post dialysis 2024-06-27 21:04:20 14 mg/dL F 9.0-23.0 Creatinine [Mass/volume] in Serum or Plasma 2024-06-06 13:28:24 5.63 mg/dL F 0.5-1.1 TOTAL HOURS/WEEK DIALYSIS 2024-05-23 18:14:08 9 hrs [...] (KG) 2024-05-23 18:14:08 52 kg F CURRENT KRU 2024-05-23 18:14:08 F WEIGHT - POST DAY 1 2024-05-23 18:14:08 50.4 kg F URR% 2024-05-23 18:14:08 68 % F VM (KT/V MEAN VOL) 2024-05-23 18:14:08 [...] TX VOL) 2024-05-23 18:14:08 26.9 L F stdKT/V Total 2024-05-23 18:14:08 N/A F Urea nitrogen [Mass/volume] in Serum or Plasma --post dialysis 2024-05-23 18:12:23 11 mg/dL F 9.0-23.0 Urea nitrogen [Mass/volume] in Serum or Plasma 2024-05-23 17:36:11 34 mg/dL F 9.0-23.0 VM (KT/V MEAN VOL) 2024-05-16 20:25:50 33.4 F spKt/V 2024-05-16 20:25:50 1.41 F CURRENT KRU 2024-05-16 20:25:50 F TBW (Roman) 2024-05-16 20:25:50 28.92 Liters F WEIGHT - PRE DAY 1 2024-05-16 20:25:50 55 kg F VT (KT/V TX VOL) 2024-05-16 20:25:50 33.4 L F Dialyzer SILVIA 2024-05-16 20:25:50 1264 Calc F BSA RADHA 2024-05-16 20:25:50 1.54 sq m F BLOOD FLOW-QWB 2024-05-16 20:25:50 376 F AMPUTATE FACTOR 2024-05-16 20:25:50 0 F stdKT/V Total 2024-05-16 20:25:50 N/A F stdKt/V (DIAL) 2024-05-16 20:25:50 N/A F HEIGHT IN INCHES 2024-05-16 20:25:50 65 Inches F LENGTH OF DIALYSIS 2024-05-16 20:25:50 180 min F Total Kt/V 2024-05-16 20:25:50 1.41 F nPCR 2024-05-16 20:25:50 0.27 G/KG/D F URR% 2024-05-16 20:25:50 74 % F [...] [Mass/volume] in Serum or Plasma --post dialysis URR% Residual kt/v spKt/V TBW (Roman) BSA RADHA nPCR LENGTH OF DIALYSIS stdKT/V Total BLOOD FLOW-QWB VT (KT/V TX VOL) WEIGHT - POST DAY 1 DIALYZER FLOW-QD WEIGHT - PRE DAY 1 TOTAL HOURS/WEEK DIALYSIS PRESCRIBED DAYS/WEEK Std Renal KT/V stdKt/V (DIAL) Urea nitrogen [Mass/volume] in Serum or Plasma Dialyzer SILVIA KT/V PRESCRIBED Total Kt/V eKt/V VM (KT/V MEAN VOL) CURRENT KRU Urea nitrogen [Mass/volume] in Serum or Plasma [...] Date Result/Unit Status Ref Range Result Comments IRON SATURATION 2024-11-09 06:25:10 51 % F 16.0-46.0 TIBC 2024-11-09 06:25:10 306 ug/dL F 250.0-425.0 Iron [Mass/volume] in Serum or Plasma 2024-11-09 05:52:31 155 ug/dL F 50.0-170.0 Iron binding capacity.unsaturated [Mass/volume] in Serum or Plasma 2024-11-09 05:52:27 151 ug/dL F 80.0-375.0 Ferritin [Mass/volume] in Serum or Plasma 2024-11-08 18:18:10 486 ng/mL F 10.0-291.0 HCT CALC HGBX3 2024-11-08 17:53:47 32.7 % F 37.0-47.0 MCV [Entitic volume] by Automated count 2024-11-08 17:53:09 89.1 fL F 80.0-100.0 Hematocrit [Volume Fraction] of Blood by Automated count 2024-11-08 17:53:09 35 % F 37.0-47.0 Platelets [#/volume] in Blood by Automated count 2024-11-08 17:53:09 422 x 10^3 cells/uL F 140.0-450.0 Erythrocyte distribution width [Ratio] by Automated count 2024-11-08 17:53:09 15.8 % F 11.0-15.0 MCH [Entitic mass] by Automated count 2024-11-08 17:53:09 27.9 pg F 25.9-34.2 Erythrocytes [#/volume] in Blood by Automated count 2024-11-08 17:53:09 3.92 x 10^6 cells/uL F 3.85-5.2 Hemoglobin [Mass/volume] in Blood 2024-11-08 17:53:09 10.9 g/dL F 12.0-16.0 MCHC [Mass/volume] by Automated count 2024-11-08 17:53:09 31.3 g/dL F 29.6-35.3 HCT CALC HGBX3 2024-10-24 15:13:06 33 % F 37.0-47.0 HCT CALC HGBX3 2024-10-24 15:13:06 33 % F 37.0-47.0 Hemoglobin [Mass/volume] in Blood 2024-10-24 15:06:15 11 g/dL F 12.0-16.0 Hemoglobin [Mass/volume] in Blood 2024-10-24 15:06:15 11 g/dL F 12.0-16.0 HCT CALC HGBX3 2024-10-10 15:18:19 32.1 % F 37.0-47.0 HCT CALC HGBX3 2024-10-10 15:18:19 32.1 % F 37.0-47.0 Erythrocyte distribution width [Ratio] by Automated count 2024-10-10 15:17:20 15.5 % F 11.0-15.0 Hemoglobin [Mass/volume] in Blood 2024-10-10 15:17:20 10.7 g/dL F 12.0-16.0 Platelets [#/volume] in Blood by Automated count 2024-10-10 15:17:20 304 x 10^3 cells/uL F 140.0-450.0 MCH [Entitic mass] by Automated count 2024-10-10 15:17:20 27.7 pg F 25.9-34.2 MCHC [Mass/volume] by Automated count 2024-10-10 15:17:20 29.6 g/dL F 29.6-35.3 Erythrocytes [#/volume] in Blood by Automated count 2024-10-10 15:17:20 3.88 x 10^6 cells/uL F 3.85-5.2 Hematocrit [Volume Fraction] of Blood by Automated count 2024-10-10 15:17:20 36.3 % F 37.0-47.0 MCV [Entitic volume] by Automated count 2024-10-10 15:17:20 93.4 fL F 80.0-100.0 Erythrocyte distribution width [Ratio] by Automated count 2024-10-10 15:17:20 15.5 % F 11.0-15.0 Erythrocytes [#/volume] in Blood by Automated count 2024-10-10 15:17:20 3.88 x 10^6 cells/uL F 3.85-5.2 MCV [Entitic volume] by Automated count 2024-10-10 15:17:20 93.4 fL F 80.0-100.0 MCH [Entitic mass] by Automated count 2024-10-10 15:17:20 27.7 pg F 25.9-34.2 MCHC [Mass/volume] by Automated count 2024-10-10 15:17:20 29.6 g/dL F 29.6-35.3 Platelets [#/volume] in Blood by Automated count 2024-10-10 15:17:20 304 x 10^3 cells/uL F 140.0-450.0 Hematocrit [Volume Fraction] of Blood by Automated count 2024-10-10 15:17:20 36.3 % F 37.0-47.0 Hemoglobin [Mass/volume] in Blood 2024-10-10 15:17:20 10.7 g/dL F 12.0-16.0 HCT CALC HGBX3 2024-09-26 23:48:05 32.7 % F 37.0-47.0 HCT CALC HGBX3 2024-09-26 23:48:05 32.7 % F 37.0-47.0 Hemoglobin [Mass/volume] in Blood 2024-09-26 23:28:16 10.9 g/dL F 12.0-16.0 Hemoglobin [Mass/volume] in Blood 2024-09-26 23:28:16 10.9 g/dL F 12.0-16.0 HCT CALC HGBX3 2024-09-07 18:40:57 29.7 % F 37.0-47.0 HCT CALC HGBX3 2024-09-07 18:40:57 29.7 % F 37.0-47.0 Erythrocyte distribution width [Ratio] by Automated count 2024-09-07 18:40:09 15.5 % F 11.0-15.0 Platelets [#/volume] in Blood by Automated count 2024-09-07 18:40:09 405 x 10^3 cells/uL F 140.0-450.0 MCH [Entitic mass] by Automated count 2024-09-07 18:40:09 29.6 pg F 25.9-34.2 MCHC [Mass/volume] by Automated count 2024-09-07 18:40:09 31.1 g/dL F 29.6-35.3 Erythrocytes [#/volume] in Blood by Automated count 2024-09-07 18:40:09 3.36 x 10^6 cells/uL F 3.85-5.2 Hematocrit [Volume Fraction] of Blood by Automated count 2024-09-07 18:40:09 31.9 % F 37.0-47.0 Hemoglobin [Mass/volume] in Blood 2024-09-07 18:40:09 9.9 g/dL F 12.0-16.0 MCV [Entitic volume] by Automated count 2024-09-07 18:40:09 95.1 fL F 80.0-100.0 Erythrocyte distribution width [Ratio] by Automated count 2024-09-07 18:40:09 15.5 % F 11.0-15.0 Hemoglobin [Mass/volume] in Blood 2024-09-07 18:40:09 9.9 g/dL F 12.0-16.0 Platelets [#/volume] in Blood by Automated count 2024-09-07 18:40:09 405 x 10^3 cells/uL F 140.0-450.0 MCH [Entitic mass] by Automated count 2024-09-07 18:40:09 29.6 pg F 25.9-34.2 MCHC [Mass/volume] by Automated count 2024-09-07 18:40:09 31.1 g/dL F 29.6-35.3 Erythrocytes [#/volume] in Blood by Automated count 2024-09-07 18:40:09 3.36 x 10^6 cells/uL F 3.85-5.2 Hematocrit [Volume Fraction] of Blood by Automated count 2024-09-07 18:40:09 31.9 % F 37.0-47.0 MCV [Entitic volume] by Automated count 2024-09-07 18:40:09 95.1 fL F 80.0-100.0 HCT CALC HGBX3 2024-08-23 13:43:41 27.6 % F 37.0-47.0 HCT CALC HGBX3 2024-08-23 13:43:41 27.6 % F 37.0-47.0 HCT CALC HGBX3 2024-08-23 13:43:41 27.6 % F 37.0-47.0 Hemoglobin [Mass/volume] in Blood 2024-08-23 13:43:09 9.2 g/dL F 12.0-16.0 Hemoglobin [Mass/volume] in Blood 2024-08-23 13:43:09 9.2 g/dL F 12.0-16.0 Hemoglobin [Mass/volume] in Blood 2024-08-23 13:43:09 9.2 g/dL F 12.0-16.0 IRON SATURATION 2024-08-18 03:34:31 34 % F 16.0-46.0 TIBC 2024-08-18 03:34:31 282 ug/dL F 250.0-425.0 IRON SATURATION 2024-08-18 03:34:31 34 % F 16.0-46.0 TIBC 2024-08-18 03:34:31 282 ug/dL F 250.0-425.0 Iron binding capacity.unsaturated [Mass/volume] in Serum or Plasma 2024-08-18 03:33:19 186 ug/dL F 80.0-375.0 Iron [Mass/volume] in Serum or Plasma 2024-08-18 03:33:19 96 ug/dL F 50.0-170.0 Iron [Mass/volume] in Serum or Plasma 2024-08-18 03:33:19 96 ug/dL F 50.0-170.0 Iron binding capacity.unsaturated [Mass/volume] in Serum or Plasma 2024-08-18 03:33:19 186 ug/dL F 80.0-375.0 Ferritin [Mass/volume] in Serum or Plasma 2024-08-17 18:09:17 196 ng/mL F 10.0-291.0 Ferritin [Mass/volume] in Serum or Plasma 2024-08-17 18:09:17 196 ng/mL F 10.0-291.0 Ferritin [Mass/volume] in Serum or Plasma 2024-08-10 18:54:11 196 ng/mL F 10.0-291.0 HCT CALC HGBX3 2024-08-08 14:57:01 25.5 % F 37.0-47.0 Hemoglobin [Mass/volume] in Blood 2024-08-08 14:56:10 8.5 g/dL F 12.0-16.0 IRON SATURATION 2024-07-27 00:23:47 31 % F 16.0-46.0 TIBC 2024-07-27 00:23:47 318 ug/dL F 250.0-425.0 Iron binding capacity.unsaturated [Mass/volume] in Serum or Plasma 2024-07-27 00:20:41 219 ug/dL F 80.0-375.0 Iron [Mass/volume] in Serum or Plasma 2024-07-26 18:57:14 99 ug/dL F 50.0-170.0 HCT CALC HGBX3 2024-07-26 00:13:58 24.6 % F 37.0-47.0 Erythrocyte distribution width [Ratio] by Automated count 2024-07-25 23:42:07 14.6 % F 11.0-15.0 MCH [Entitic mass] by Automated count 2024-07-25 23:42:07 29.5 pg F 25.9-34.2 MCHC [Mass/volume] by Automated count 2024-07-25 23:42:07 30.1 g/dL F 29.6-35.3 Hematocrit [Volume Fraction] of Blood by Automated count 2024-07-25 23:42:07 27.1 % F 37.0-47.0 Hemoglobin [Mass/volume] in Blood 2024-07-25 23:42:07 8.2 g/dL F 12.0-16.0 Platelets [#/volume] in Blood by Automated count 2024-07-25 23:42:07 366 x 10^3 cells/uL F 140.0-450.0 Erythrocytes [#/volume] in Blood by Automated count 2024-07-25 23:42:07 2.76 x 10^6 cells/uL F 3.85-5.2 MCV [Entitic volume] by Automated count 2024-07-25 23:42:07 98.1 fL F 80.0-100.0 Ferritin [Mass/volume] in Serum or Plasma 2024-07-24 22:13:17 F CANCELED - TEST CANCELED,CANCEL ED - TEST CANCELED HCT CALC HGBX3 2024-06-27 21:54:02 21.3 % [...] HGBX3 2024-06-06 19:27:17 23.7 % F 37.0-47.0 MCV [Entitic volume] by Automated count 2024-06-06 19:26:23 101.1 fL F 80.0-100.0 Hemoglobin [Mass/volume] in Blood 2024-06-06 19:26:23 7.9 [...] count 2024-06-06 19:26:23 30.1 g/dL F 29.6-35.3 HCT CALC HGBX3 2024-05-30 14:36:09 23.1 % [...] count 2024-05-17 00:52:20 96.4 fL F 80.0-100.0 Hemoglobin [Mass/volume] in Blood Iron binding capacity.unsaturated [Mass/volume] in Serum or [...] mIU/L 2024-07-13 04:59:59 1.8 uIU/mL F 0.46-4.68 Thyrotropin [Units/volume] in Serum or Plasma by Detection limit <= 0.05 mIU/L 2024-07-13 04:59:59 1.8 uIU/mL F 0.46-4.68 FluidBP Description Draw Date Result/Unit Status Ref Range Result Comments Sodium [Moles/volume] in Serum or Plasma 2024-11-09 05:52:27 133 mEq/L F 136.0-145.0 Sodium [Moles/volume] in Serum or Plasma 2024-10-10 21:57:02 129 mEq/L F 136.0-145.0 Sodium [Moles/volume] in Serum or Plasma 2024-10-10 21:57:02 129 mEq/L F 136.0-145.0 Sodium [Moles/volume] in Serum or Plasma 2024-09-08 02:03:50 131 mEq/L F 136.0-145.0 Sodium [Moles/volume] in Serum or Plasma 2024-09-08 02:03:50 131 mEq/L F 136.0-145.0 Sodium [Moles/volume] in Serum or Plasma 2024-07-27 00:20:41 132 mEq/L F 132.0-146.0 Sodium [Moles/volume] in Serum or Plasma 2024-06-06 17:18:45 133 mEq/L F 132.0-146.0 Sodium [Moles/volume] in Serum or Plasma 2024-05-17 07:35:58 140 mEq/L F 132.0-146.0 Sodium [Moles/volume] in Serum or Plasma General Description Draw Date Result/Unit Status Ref Range Result Comments Chloride [Moles/volume] in Serum or Plasma 2024-11-09 05:52:27 91 mEq/L F 98.0-107.0 Alanine aminotransferase [Enzymatic activity/volume] in Serum or Plasma 2024-11-08 18:04:13 17 U/L F 10.0-49.0 Aspartate aminotransferase [Enzymatic activity/volume] in Serum or Plasma 2024-11-08 18:04:13 16 U/L F 0.0-33.0 Chloride [Moles/volume] in Serum or Plasma 2024-10-10 21:57:02 88 mEq/L F 98.0-107.0 Chloride [Moles/volume] in Serum or Plasma 2024-10-10 21:57:02 88 mEq/L F 98.0-107.0 Aspartate aminotransferase [Enzymatic activity/volume] in Serum or Plasma 2024-10-10 13:27:18 16 U/L F 0.0-33.0 Alanine aminotransferase [Enzymatic activity/volume] in Serum or Plasma 2024-10-10 13:27:18 21 U/L F 10.0-49.0 Aspartate aminotransferase [Enzymatic activity/volume] in Serum or Plasma 2024-10-10 13:27:18 16 U/L F 0.0-33.0 Alanine aminotransferase [Enzymatic activity/volume] in Serum or Plasma 2024-10-10 13:27:18 21 U/L F 10.0-49.0 Chloride [Moles/volume] in Serum or Plasma 2024-09-08 02:03:50 86 mEq/L F 98.0-107.0 Chloride [Moles/volume] in Serum or Plasma 2024-09-08 02:03:50 86 mEq/L F 98.0-107.0 Alanine aminotransferase [Enzymatic activity/volume] in Serum or Plasma 2024-09-07 15:39:12 58 U/L F 10.0-49.0 Aspartate aminotransferase [Enzymatic activity/volume] in Serum or Plasma 2024-09-07 15:39:12 27 U/L F 0.0-33.0 Aspartate aminotransferase [Enzymatic activity/volume] in Serum or Plasma 2024-09-07 15:39:12 27 U/L F 0.0-33.0 Alanine aminotransferase [Enzymatic activity/volume] in Serum or Plasma 2024-09-07 15:39:12 58 U/L F 10.0-49.0 Chloride [Moles/volume] in Serum or Plasma 2024-07-27 00:20:41 93 mEq/L F 99.0-109.0 Aspartate aminotransferase [Enzymatic activity/volume] in Serum or Plasma 2024-07-26 12:41:16 25 U/L F 0.0-33.0 Alanine aminotransferase [Enzymatic activity/volume] in Serum or Plasma 2024-07-26 12:41:16 20 U/L F 10.0-49.0 Chloride [Moles/volume] in Serum or Plasma 2024-06-06 [...] Date Result/Unit Status Ref Range Result Comments Basophils/100 leukocytes in Blood by Automated count 2024-11-08 17:53:09 0.8 % F Eosinophils/100 leukocytes in Blood by Automated count 2024-11-08 17:53:09 13.6 % F Neutrophils [#/volume] in Blood by Automated count 2024-11-08 17:53:09 7828 Cells/uL F 2000.0-8800.0 Basophils [#/volume] in Blood by Automated count 2024-11-08 17:53:09 104 Cells/uL F 0.0-400.0 Lymphocytes [#/volume] in Blood by Automated count 2024-11-08 17:53:09 2424 Cells/uL F 620.0-3660.0 Monocytes/100 leukocytes in Blood by Automated count 2024-11-08 17:53:09 6.6 % F Leukocytes [#/volume] in Blood by Automated count 2024-11-08 17:53:09 13 x 10^3 cells/uL F 4.0-11.0 Lymphocytes/100 leukocytes in Blood by Automated count 2024-11-08 17:53:09 18.7 % F Eosinophils [#/volume] in Blood by Automated count 2024-11-08 17:53:09 1763 Cells/uL F 0.0-700.0 Monocytes [#/volume] in Blood by Automated count 2024-11-08 17:53:09 855 Cells/uL F 0.0-1100.0 Neutrophils/100 leukocytes in Blood by Automated count 2024-11-08 17:53:09 60.4 % F Neutrophils/100 leukocytes in Blood by Automated count 2024-10-10 15:17:20 64.9 % F Lymphocytes/100 leukocytes in Blood by Automated count 2024-10-10 15:17:20 16.4 % F Monocytes/100 leukocytes in Blood by Automated count 2024-10-10 15:17:20 5.3 % F Basophils/100 leukocytes in Blood by Automated count 2024-10-10 15:17:20 0.6 % F Eosinophils/100 leukocytes in Blood by Automated count 2024-10-10 15:17:20 12.9 % F Monocytes [#/volume] in Blood by Automated count 2024-10-10 15:17:20 729 Cells/uL F 0.0-1100.0 Basophils [#/volume] in Blood by Automated count 2024-10-10 15:17:20 82 Cells/uL F 0.0-400.0 Eosinophils [#/volume] in Blood by Automated count 2024-10-10 15:17:20 1774 Cells/uL F 0.0-700.0 Neutrophils [#/volume] in Blood by Automated count 2024-10-10 15:17:20 8924 Cells/uL F 2000.0-8800.0 Leukocytes [#/volume] in Blood by Automated count 2024-10-10 15:17:20 13.8 x 10^3 cells/uL F 4.0-11.0 Lymphocytes [#/volume] in Blood by Automated count 2024-10-10 15:17:20 2255 Cells/uL F 620.0-3660.0 Basophils/100 leukocytes in Blood by Automated count 2024-10-10 15:17:20 0.6 % F Neutrophils/100 leukocytes in Blood by Automated count 2024-10-10 15:17:20 64.9 % F Monocytes/100 leukocytes in Blood by Automated count 2024-10-10 15:17:20 5.3 % F Leukocytes [#/volume] in Blood by Automated count 2024-10-10 15:17:20 13.8 x 10^3 cells/uL F 4.0-11.0 Neutrophils [#/volume] in Blood by Automated count 2024-10-10 15:17:20 8924 Cells/uL F 2000.0-8800.0 Lymphocytes [#/volume] in Blood by Automated count 2024-10-10 15:17:20 2255 Cells/uL F 620.0-3660.0 Monocytes [#/volume] in Blood by Automated count 2024-10-10 15:17:20 729 Cells/uL F 0.0-1100.0 Basophils [#/volume] in Blood by Automated count 2024-10-10 15:17:20 82 Cells/uL F 0.0-400.0 Eosinophils/100 leukocytes in Blood by Automated count 2024-10-10 15:17:20 12.9 % F Eosinophils [#/volume] in Blood by Automated count 2024-10-10 15:17:20 1774 Cells/uL F 0.0-700.0 Lymphocytes/100 leukocytes in Blood by Automated count 2024-10-10 15:17:20 16.4 % F Lymphocytes/100 leukocytes in Blood by Automated count 2024-09-07 18:40:09 17.3 % F Eosinophils/100 leukocytes in Blood by Automated count 2024-09-07 18:40:09 10.3 % F Neutrophils [#/volume] in Blood by Automated count 2024-09-07 18:40:09 8797 Cells/uL F 2000.0-8800.0 Leukocytes [#/volume] in Blood by Automated count 2024-09-07 18:40:09 13.4 x 10^3 cells/uL F 4.0-11.0 Lymphocytes [#/volume] in Blood by Automated count 2024-09-07 18:40:09 2323 Cells/uL F 620.0-3660.0 Basophils/100 leukocytes in Blood by Automated count 2024-09-07 18:40:09 1 % F Monocytes [#/volume] in Blood by Automated count 2024-09-07 18:40:09 779 Cells/uL F 0.0-1100.0 Basophils [#/volume] in Blood by Automated count 2024-09-07 18:40:09 134 Cells/uL F 0.0-400.0 Eosinophils [#/volume] in Blood by Automated count 2024-09-07 18:40:09 1383 Cells/uL F 0.0-700.0 Neutrophils/100 leukocytes in Blood by Automated count 2024-09-07 18:40:09 65.5 % F Monocytes/100 leukocytes in Blood by Automated count 2024-09-07 18:40:09 5.8 % F Lymphocytes/100 leukocytes in Blood by Automated count 2024-09-07 18:40:09 17.3 % F Neutrophils/100 leukocytes in Blood by Automated count 2024-09-07 18:40:09 65.5 % F Basophils/100 leukocytes in Blood by Automated count 2024-09-07 18:40:09 1 % F Eosinophils/100 leukocytes in Blood by Automated count 2024-09-07 18:40:09 10.3 % F Monocytes [#/volume] in Blood by Automated count 2024-09-07 18:40:09 779 Cells/uL F 0.0-1100.0 Basophils [#/volume] in Blood by Automated count 2024-09-07 18:40:09 134 Cells/uL F 0.0-400.0 Eosinophils [#/volume] in Blood by Automated count 2024-09-07 18:40:09 1383 Cells/uL F 0.0-700.0 Neutrophils [#/volume] in Blood by Automated count 2024-09-07 18:40:09 8797 Cells/uL F 2000.0-8800.0 Leukocytes [#/volume] in Blood by Automated count 2024-09-07 18:40:09 13.4 x 10^3 cells/uL F 4.0-11.0 Monocytes/100 leukocytes in Blood by Automated count 2024-09-07 18:40:09 5.8 % F Lymphocytes [#/volume] in Blood by Automated count 2024-09-07 18:40:09 2323 Cells/uL F 620.0-3660.0 Monocytes/100 leukocytes in Blood by Automated count 2024-07-25 23:42:07 6.2 % F Lymphocytes/100 leukocytes in Blood by Automated count 2024-07-25 23:42:07 18.1 % F Basophils/100 leukocytes in Blood by Automated count 2024-07-25 23:42:07 0.2 % F Eosinophils/100 leukocytes in Blood by Automated count 2024-07-25 23:42:07 12.2 % F Monocytes [#/volume] in Blood by Automated count 2024-07-25 23:42:07 828 Cells/uL F 0.0-1100.0 Eosinophils [#/volume] in Blood by Automated count 2024-07-25 23:42:07 1630 Cells/uL F 0.0-700.0 Leukocytes [#/volume] in Blood by Automated count 2024-07-25 23:42:07 13.4 x 10^3 cells/uL F 4.0-11.0 Lymphocytes [#/volume] in Blood by Automated count 2024-07-25 23:42:07 2418 Cells/uL F 620.0-3660.0 Neutrophils/100 leukocytes in Blood by Automated count 2024-07-25 23:42:07 63.3 % F Basophils [#/volume] in Blood by Automated count 2024-07-25 23:42:07 27 Cells/uL F 0.0-400.0 Neutrophils [#/volume] in Blood by Automated count 2024-07-25 23:42:07 8457 Cells/uL F 2000.0-8800.0 Eosinophils/100 leukocytes in Blood by Automated count [...] count 2024-06-06 19:26:23 9597 Cells/uL F 2000.0-8800.0 Lymphocytes/100 leukocytes in Blood by Automated count 2024-05-17 00:52:20 17.5 % F Monocytes/100 leukocytes in Blood by Automated count 2024-05-17 00:52:20 5.4 % F Leukocytes [#/volume] in Blood by [...] Automated count 2024-05-17 00:52:20 2.9 % F Basophils [#/volume] in Blood by Automated count 2024-05-17 00:52:20 97 Cells/uL F 0.0-400.0 Eosinophils [#/volume] in Blood by Automated count 2024-05-17 00:52:20 312 Cells/uL F 0.0-700.0 Neutrophils [#/volume] in Blood by Automated count 2024-05-17 00:52:20 7898 Cells/uL F 2000.0-8800.0 Monocytes [#/volume] in Blood by Automated count [...] Date Result/Unit Status Ref Range Result Comments Alkaline phosphatase [Enzymatic activity/volume] in Serum or Plasma 2024-11-08 18:04:13 168 U/L F 46.0-116.0 Phosphate [Mass/volume] in Serum or Plasma 2024-11-08 18:04:13 11.1 mg/dL F 2.4-5.1 CA CORRECTED 2024-10-24 16:52:21 9.3 mg/dL F CA CORRECTED 2024-10-24 16:52:21 9.3 mg/dL F CA*PO4 CORRCTD 2024-10-24 16:50:48 127.4 Calc F 21.0-53.0 CA*PO4 CORRCTD 2024-10-24 16:50:48 127.4 Calc F 21.0-53.0 CA/PHOS PRODUCT 2024-10-24 16:50:48 127.4 Calc F 21.0-53.0 CA/PHOS PRODUCT 2024-10-24 16:50:48 127.4 Calc F 21.0-53.0 Calcium [Mass/volume] in Serum or Plasma 2024-10-24 16:45:56 9.3 mg/dL F 8.7-10.4 Calcium [Mass/volume] in Serum or Plasma 2024-10-24 16:45:56 9.3 mg/dL F 8.7-10.4 Phosphate [Mass/volume] in Serum or Plasma 2024-10-24 15:46:22 13.7 mg/dL F 2.4-5.1 Phosphate [Mass/volume] in Serum or Plasma 2024-10-24 15:46:22 13.7 mg/dL F 2.4-5.1 Parathyrin.intact [Mass/volume] in Serum or Plasma 2024-10-24 15:38:25 592 pg/mL F 18.0-80.0 Parathyrin.intact [Mass/volume] in Serum or Plasma 2024-10-24 15:38:25 592 pg/mL F 18.0-80.0 CA CORRECTED 2024-10-10 21:59:02 7 mg/dL F CA CORRECTED 2024-10-10 21:59:02 7 mg/dL F Calcium [Mass/volume] in Serum or Plasma 2024-10-10 21:57:02 7 mg/dL F 8.7-10.4 Calcium [Mass/volume] in Serum or Plasma 2024-10-10 21:57:02 7 mg/dL F 8.7-10.4 Alkaline phosphatase [Enzymatic activity/volume] in Serum or Plasma 2024-10-10 13:27:18 158 U/L F 46.0-116.0 Alkaline phosphatase [Enzymatic activity/volume] in Serum or Plasma 2024-10-10 13:27:18 158 U/L F 46.0-116.0 CA CORRECTED 2024-09-27 03:41:17 9.3 mg/dL F CA CORRECTED 2024-09-27 03:41:17 9.3 mg/dL F CA*PO4 CORRCTD 2024-09-27 03:39:16 146.9 Calc F 21.0-53.0 CA/PHOS PRODUCT 2024-09-27 03:39:16 146.9 Calc F 21.0-53.0 CA*PO4 CORRCTD 2024-09-27 03:39:16 146.9 Calc F 21.0-53.0 CA/PHOS PRODUCT 2024-09-27 03:39:16 146.9 Calc F 21.0-53.0 Calcium [Mass/volume] in Serum or Plasma 2024-09-27 03:20:46 9.3 mg/dL F 8.7-10.4 Calcium [Mass/volume] in Serum or Plasma 2024-09-27 03:20:46 9.3 mg/dL F 8.7-10.4 Phosphate [Mass/volume] in Serum or Plasma 2024-09-26 22:43:13 15.8 mg/dL F 2.4-5.1 Phosphate [Mass/volume] in Serum or Plasma 2024-09-26 22:43:13 15.8 mg/dL F 2.4-5.1 Parathyrin.intact [Mass/volume] in Serum or Plasma 2024-09-26 19:32:23 834 pg/mL F 18.0-80.0 Parathyrin.intact [Mass/volume] in Serum or Plasma 2024-09-26 19:32:23 834 pg/mL F 18.0-80.0 CA CORRECTED 2024-09-08 02:08:46 9.4 mg/dL F CA CORRECTED 2024-09-08 02:08:46 9.4 mg/dL F Calcium [Mass/volume] in Serum or Plasma 2024-09-08 02:03:50 9.4 mg/dL F 8.7-10.4 Calcium [Mass/volume] in Serum or Plasma 2024-09-08 02:03:50 9.4 mg/dL F 8.7-10.4 Phosphate [Mass/volume] in Serum or Plasma 2024-09-07 15:39:12 13.2 mg/dL F 2.4-5.1 Alkaline phosphatase [Enzymatic activity/volume] in Serum or Plasma 2024-09-07 15:39:12 114 U/L F 46.0-116.0 Phosphate [Mass/volume] in Serum or Plasma 2024-09-07 15:39:12 13.2 mg/dL F 2.4-5.1 Alkaline phosphatase [Enzymatic activity/volume] in Serum or Plasma 2024-09-07 15:39:12 114 U/L F 46.0-116.0 CA CORRECTED 2024-08-24 07:32:15 8.9 mg/dL F CA CORRECTED 2024-08-24 07:32:15 8.9 mg/dL F CA CORRECTED 2024-08-24 07:32:15 8.9 mg/dL F CA/PHOS PRODUCT 2024-08-24 07:29:53 134.4 Calc F 21.0-53.0 CA*PO4 CORRCTD 2024-08-24 07:29:53 142.1 Calc F 21.0-53.0 CA/PHOS PRODUCT 2024-08-24 07:29:53 134.4 Calc F 21.0-53.0 CA*PO4 CORRCTD 2024-08-24 07:29:53 142.1 Calc F 21.0-53.0 CA*PO4 CORRCTD 2024-08-24 07:29:53 142.1 Calc F 21.0-53.0 CA/PHOS PRODUCT 2024-08-24 07:29:53 134.4 Calc F 21.0-53.0 Calcium [Mass/volume] in Serum or Plasma 2024-08-24 07:08:03 8.4 mg/dL F 8.7-10.4 Calcium [Mass/volume] in Serum or Plasma 2024-08-24 07:08:03 8.4 mg/dL F 8.7-10.4 Calcium [Mass/volume] in Serum or Plasma 2024-08-24 07:08:03 8.4 mg/dL F 8.7-10.4 Phosphate [Mass/volume] in Serum or Plasma 2024-08-24 05:20:11 16 mg/dL F 2.4-5.1 Phosphate [Mass/volume] in Serum or Plasma 2024-08-24 05:20:11 16 mg/dL F 2.4-5.1 Phosphate [Mass/volume] in Serum or Plasma 2024-08-24 05:20:11 16 mg/dL F 2.4-5.1 Parathyrin.intact [Mass/volume] in Serum or Plasma 2024-08-23 14:03:19 1049 pg/mL F 18.0-80.0 Parathyrin.intact [Mass/volume] in Serum or Plasma 2024-08-23 14:03:19 1049 pg/mL F 18.0-80.0 Parathyrin.intact [Mass/volume] in Serum or Plasma 2024-08-23 14:03:19 1049 pg/mL F 18.0-80.0 Parathyrin.intact [Mass/volume] in Serum or Plasma 2024-08-10 18:54:11 226 pg/mL F 18.0-80.0 CA CORRECTED 2024-08-09 05:17:57 8.9 mg/dL F Calcium [Mass/volume] in Serum or Plasma 2024-08-09 05:06:38 8.4 mg/dL F 8.7-10.4 CA CORRECTED 2024-07-27 00:26:19 11.4 mg/dL F CA*PO4 CORRCTD 2024-07-27 00:23:47 93.3 Calc F 21.0-53.0 CA/PHOS PRODUCT 2024-07-27 00:23:47 89.4 Calc F 21.0-53.0 Calcium [Mass/volume] in Serum or Plasma 2024-07-27 00:20:41 10.9 mg/dL F 8.7-10.4 Phosphate [Mass/volume] in Serum or Plasma 2024-07-27 00:20:41 8.2 mg/dL F 2.4-5.1 Alkaline phosphatase [Enzymatic activity/volume] in Serum or Plasma 2024-07-26 12:41:16 100 U/L F 46.0-116.0 Parathyrin.intact [Mass/volume] in Serum or Plasma 2024-07-24 22:13:17 F CANCELED - TEST CANCELED,CANCELED - TEST CANCELED CA CORRECTED 2024-06-28 07:22:22 9.2 mg/dL F [...] CA CORRECTED 2024-05-24 08:56:58 9.9 mg/dL F CA*PO4 CORRCTD 2024-05-24 08:55:33 81.8 Calc F 21.0-53.0 CA/PHOS PRODUCT 2024-05-24 08:55:33 73.9 Calc F 21.0-53.0 Calcium [Mass/volume] in Serum or Plasma 2024-05-24 07:43:55 8.9 mg/dL F 8.7-10.4 Phosphate [Mass/volume] in Serum or Plasma 2024-05-24 07:43:55 8.3 mg/dL F 2.4-5.1 Parathyrin.intact [Mass/volume] in Serum or Plasma 2024-05-23 [...] 17:04:22 121 pg/mL F 18.0-80.0 CA/PHOS PRODUCT Calcium [Mass/volume] in Serum or Plasma Phosphate [Mass/volume] in Serum or Plasma CA CORRECTED CA*PO4 CORRCTD Parathyrin.intact [Mass/volume] in Serum or Plasma CA/PHOS PRODUCT Phosphate [Mass/volume] in Serum or Plasma CA*PO4 CORRCTD CA CORRECTED Calcium [Mass/volume] in Serum or Plasma Alkaline phosphatase [Enzymatic activity/volume] in Serum or Plasma Parathyrin.intact [Mass/volume] in Serum or Plasma Nutrition Description Draw Date Result/Unit Status Ref Range Result Comments Potassium [Moles/volume] in Serum or Plasma 2024-11-09 05:52:27 5.7 mEq/L F 3.5-5.1 A/G RATIO 2024-11-08 18:05:24 1.8 Calc F 1.0-2.5 GLOBULIN 2024-11-08 18:05:24 2.2 g/dL F 0.9-5.0 Albumin [Mass/volume] in Serum or Plasma by Bromocresol green (BCG) dye binding method 2024-11-08 18:04:13 4 g/dL F 3.2-4.8 Glucose [Mass/volume] in Serum or Plasma 2024-11-08 18:04:13 133 mg/dL F 74.0-106.0 Lactate dehydrogenase [Enzymatic activity/volume] in Serum or Plasma 2024-11-08 18:04:13 251 U/L F 120.0-246.0 Bicarbonate [Moles/volume] in Serum or Plasma 2024-11-08 18:04:13 19 mEq/L F 20.0-31.0 Protein [Mass/volume] in Serum or Plasma 2024-11-08 18:04:13 6.2 g/dL F 5.7-8.2 Potassium [Moles/volume] in Serum or Plasma 2024-10-10 21:57:02 4.4 mEq/L F 3.5-5.1 Potassium [Moles/volume] in Serum or Plasma 2024-10-10 21:57:02 4.4 mEq/L F 3.5-5.1 GLOBULIN 2024-10-10 13:27:56 2.1 g/dL F 0.9-5.0 A/G RATIO 2024-10-10 13:27:56 1.9 Calc F 1.0-2.5 A/G RATIO 2024-10-10 13:27:56 1.9 Calc F 1.0-2.5 GLOBULIN 2024-10-10 13:27:56 2.1 g/dL F 0.9-5.0 Lactate dehydrogenase [Enzymatic activity/volume] in Serum or Plasma 2024-10-10 13:27:18 256 U/L F 120.0-246.0 Bicarbonate [Moles/volume] in Serum or Plasma 2024-10-10 13:27:18 15 mEq/L F 20.0-31.0 Albumin [Mass/volume] in Serum or Plasma by Bromocresol green (BCG) dye binding method 2024-10-10 13:27:18 4 g/dL F 3.2-4.8 Protein [Mass/volume] in Serum or Plasma 2024-10-10 13:27:18 6.1 g/dL F 5.7-8.2 Glucose [Mass/volume] in Serum or Plasma 2024-10-10 13:27:18 189 mg/dL F 74.0-106.0 Bicarbonate [Moles/volume] in Serum or Plasma 2024-10-10 13:27:18 15 mEq/L F 20.0-31.0 Lactate dehydrogenase [Enzymatic activity/volume] in Serum or Plasma 2024-10-10 13:27:18 256 U/L F 120.0-246.0 Protein [Mass/volume] in Serum or Plasma 2024-10-10 13:27:18 6.1 g/dL F 5.7-8.2 Albumin [Mass/volume] in Serum or Plasma by Bromocresol green (BCG) dye binding method 2024-10-10 13:27:18 4 g/dL F 3.2-4.8 Glucose [Mass/volume] in Serum or Plasma 2024-10-10 13:27:18 189 mg/dL F 74.0-106.0 Potassium [Moles/volume] in Serum or Plasma 2024-09-08 02:03:50 4.6 mEq/L F 3.5-5.1 Potassium [Moles/volume] in Serum or Plasma 2024-09-08 02:03:50 4.6 mEq/L F 3.5-5.1 GLOBULIN 2024-09-07 15:39:58 2.3 g/dL F 0.9-5.0 A/G RATIO 2024-09-07 15:39:58 1.7 Calc F 1.0-2.5 GLOBULIN 2024-09-07 15:39:58 2.3 g/dL F 0.9-5.0 A/G RATIO 2024-09-07 15:39:58 1.7 Calc F 1.0-2.5 Protein [Mass/volume] in Serum or Plasma 2024-09-07 15:39:12 6.3 g/dL F 5.7-8.2 Glucose [Mass/volume] in Serum or Plasma 2024-09-07 15:39:12 172 mg/dL F 74.0-106.0 Lactate dehydrogenase [Enzymatic activity/volume] in Serum or Plasma 2024-09-07 15:39:12 203 U/L F 120.0-246.0 Bicarbonate [Moles/volume] in Serum or Plasma 2024-09-07 15:39:12 21 mEq/L F 20.0-31.0 Albumin [Mass/volume] in Serum or Plasma by Bromocresol green (BCG) dye binding method 2024-09-07 15:39:12 4 g/dL F 3.2-4.8 Lactate dehydrogenase [Enzymatic activity/volume] in Serum or Plasma 2024-09-07 15:39:12 203 U/L F 120.0-246.0 Bicarbonate [Moles/volume] in Serum or Plasma 2024-09-07 15:39:12 21 mEq/L F 20.0-31.0 Albumin [Mass/volume] in Serum or Plasma by Bromocresol green (BCG) dye binding method 2024-09-07 15:39:12 4 g/dL F 3.2-4.8 Protein [Mass/volume] in Serum or Plasma 2024-09-07 15:39:12 6.3 g/dL F 5.7-8.2 Glucose [Mass/volume] in Serum or Plasma 2024-09-07 15:39:12 172 mg/dL F 74.0-106.0 Potassium [Moles/volume] in Serum or Plasma 2024-07-27 00:20:41 4.2 mEq/L F 3.5-5.5 GLOBULIN 2024-07-26 12:42:19 2 g/dL F 0.9-5.0 A/G RATIO 2024-07-26 12:42:19 1.7 Calc F 1.0-2.5 Albumin [Mass/volume] in Serum or Plasma by Bromocresol green (BCG) dye binding method 2024-07-26 12:41:16 3.4 g/dL F 3.4-4.8 Lactate dehydrogenase [Enzymatic activity/volume] in Serum or Plasma 2024-07-26 12:41:16 443 U/L F 120.0-246.0 Bicarbonate [Moles/volume] in Serum or Plasma 2024-07-26 12:41:16 24 mEq/L F 20.0-31.0 Protein [Mass/volume] in Serum or Plasma 2024-07-26 12:41:16 5.4 g/dL F 5.7-8.2 Glucose [Mass/volume] in Serum or Plasma 2024-07-26 12:41:16 122 mg/dL F 70.0-99.0 Potassium [Moles/volume] in Serum or Plasma 2024-06-06 17:18:45 3.8 mEq/L F 3.5-5.5 GLOBULIN 2024-06-06 13:29:25 2 g/dL F 0.9-5.0 A/G RATIO 2024-06-06 13:29:25 1.7 Calc F 1.0-2.5 Glucose [Mass/volume] in Serum or Plasma 2024-06-06 13:28:24 158 mg/dL F 70.0-99.0 Lactate dehydrogenase [Enzymatic activity/volume] in Serum or Plasma 2024-06-06 13:28:24 185 U/L F 120.0-246.0 Bicarbonate [Moles/volume] in Serum or Plasma 2024-06-06 13:28:24 18 mEq/L F 20.0-31.0 Protein [Mass/volume] in Serum or Plasma 2024-06-06 13:28:24 5.4 g/dL F 5.7-8.2 Albumin [Mass/volume] in Serum or Plasma by Bromocresol green (BCG) dye binding method 2024-06-06 13:28:24 3.4 g/dL F 3.4-4.8 Potassium [Moles/volume] in Serum or Plasma 2024-05-17 [...] Date Details Commen ts [facility] [place] 2024-05-17 14:01:06 Hemoglobin [Mass/volume] in Blood [code = 718-7] Diagnostic Test Pending [facility] 2024-05-15 07:29:02 Alanine aminotransferase [Enzymatic activity/volume] in Serum or Plasma [code = 1742-6] Diagnostic Test Pending [facility] 2024-07-18 05:00:00 Ferritin [Mass/volume] in Serum or Plasma [code = 2276-4] Diagnostic Test Pending [facility] 2024-05-15 07:28:16 Parathyrin.intact [Mass/volume] in Serum or Plasma [code = 2731-8] Diagnostic Test Pending [facility] 2024-05-14 19:04:20 Sodium [Moles/volume] in Serum or Plasma [code = 2951-2] Diagnostic Test Pending [facility] 2024-05-14 19:00:45 Glucose [Mass/volume] in Serum or Plasma [code = 2345-7] Diagnostic Test Pending [facility] 2024-05-14 19:00:28 Creatinine [Mass/volume] in Serum or Plasma [code = 2160-0] Diagnostic Test Pending [facility] 2024-05-14 19:00:03 Albumin [Mass/volume] in Serum or Plasma by Bromocresol green (BCG) dye binding method [code = 43324-1] Diagnostic Test Pending [facility] 2024-05-14 19:00:09 Aluminum [Mass/volume] in Serum or Plasma [code = 5574-9] Diagnostic [facility] [place] 2024-11-06 13:13:38 Phosphate [Mass/volume] in Serum or Plasma [code = 2777-1] Diagnostic Test Pending [facility] 2024-10-25 13:34:51 In-Center Hemodialysis Treatment [code = OQP528] Diagnostic Test Pending [facility] 2024-08-20 19:43:18 In-Center Hemodialysis Treatment [code = EVU573] Diagnostic Test Pending [facility] 2024-06-27 20:12:11 In-Center Hemodialysis Treatment [code = EAC219] Diet Order [facility] June 12, 2024 Diet Calorie 30 kcal/kg Fluid Value 1000 mL/d Phosphorus Value 700 mg/d Potassium Value 2000 mg/d Protein Value 1.3 gm/kg Sodium Value 2000 mg/d Calculated Weight 52 kg dietary_diet_modification Carb Controlle d;
--- OUTSIDE RECORDS SUMMARY | 2024-11-17 13:30 | XMS_ITS | Encounter Summary ---
Author Organization [facility] Health Address [address] [place] [address] Care Team Providers Care Doll Repairer Name Role Phone León Varela MD Primary Care Provider [phone] Encounter Details Date Type Department Care Team (Late st Contact Info) Description 02/12/2024 Lab Requisition [facility] - DermPath Lab [address] [place] [address] Savita Martini PA [address] [place] [address] Social History Tobacco Use Types Packs/Day Years Used Date Smoking Tobacco: Never Assessed Comments Unknown Sex and Gender Information Value Date Recorded Sex Assigned at Not on file Legal Sex Female 5:46 PM [facility] Gender Identity Not on file Sexual Orientation Not on file documented as of this encounter Plan of Treatment Not on file documented as of this encounter Procedures Procedure Name Priority Date/Time Associated Diagnosis Comments DERMATOPATHOLOGY Routine 02/12/2024 2:00 PM [facility] documented in this encounter Results * DERMATOPATHOLOGY (02/12/2024 2:00 PM [facility]) Case Report Dermatopathology Report Case: [id number] Authorizing Provider: Savita Martini PA Collected: 02/12/2024 02:00 PM Ordering Location: [facility] - Received: 02/13/2024 12:36 PM DermPath Lab Pathologist: Key Johnson MD Specimen: Skin, left 4th finger 11:10 AM [facility] DERMATOPATHOLOGY LABORATORY Final Diagnosis Specimen A. SKIN, left 4th finger: SQUAMOUS CELL CARCINOMA IN SITU, ACANTHOLYTIC, PRESENT AT THE BASE OF THE SPECIMEN (D04.62) (see microscopic description and comment) OVERLYING CUTANEOUS HORN (L85.8) 4 11:10 AM [facility] DERMATOPATHOLOGY LABORATORY at [address] [facility] Clinical History HAK vs SCC 4 11:10 AM [facility] DERMATOPATHOLOGY LABORATORY Gross Description Specimen A: Received is one formalin filled container labeled with the patient's name and designated left 4th finger. The specimen consists of a shave biopsy measuring 6x4x1 mm. Jar 0. 11:10 AM [facility] DERMATOPATHOLOGY LABORATORY Microscopic Description Specimen [...] carcinoma cannot be ruled out. 11:10 AM [facility] DERMATOPATHOLOGY LABORATORY Disclaimer An external and internal positive and negative controls are appropriate for the histochemical, immunohistochemical and immunofluorescence stain(s) in this case (if any), except where stated explicitly. The performance characteristics of the stain(s) cited in this report were developed and its performance characteristic determined by the Dermatopathology Laboratory at [facility], directed by Dr. Cole Gonzáles. These tests need not be, and therefore are not, approved by the [place] Food and Drug Administration. The tests are used for clinical purposes. Billing Codes Specimen Charges Stain Charges 07355 1 4 11:10 AM [facility] DERMATOPATHOLOGY LABORATORY Embedded Images 11:10 AM [facility] DERMATOPATHOLOGY LABORATORY Pathology/Cytolo gy TISSUE SPECIMEN FROM SKIN / Unknown 02/12/2024 2:00 PM [facility] 02/13/2024 12:36 PM [facility] us Savita BAHENA LAB - PATHOLOGY/CYTOLOGY ORDERAB LES Final Result DERMATOPATHOLOGY LABORATORY [facility] - Department of Dermatology [facility] Specialized Medicine [facility], [address]rd Floor [address] [phone] documented in this encounter Visit Diagnoses Not on filedocumented in this encounter Care Teams Doll Repairer Relationship Specialty Start Date End Date León Varela MD [address] [place] [address] PCP - General 04/29/14 documented as of this encounter
--- OUTSIDE RECORDS SUMMARY | 2024-11-17 13:30 | XMS_ITS ---
Author Organization [facility] Address [address] [place] [address] Care Team Providers Care Locomotive Inspector Name Role Phone León Varela MD Primary Care Provider [phone] Roger Morales MD Unavailable [phone] Disha Gutierrez MD Unavailable [phone] Dialysis Plan of Treatment Dialysis Prescription As-Of Date Prescribed Dry Weight Primary Se tting 11/07/2024 Acute Dialysis S CA Instructions Modality Prescribed Duration (hours) Frequency Blood Flow Rate Conventional Hemodialysis 3:00 40 0 mL/min Dialysis Access Type Location Dialysate Sodium Level Potassium Level Calcium Level Bicarbonate Level 138 mEq/L 35 mEq/L from Last 30 Days Dialysis Access Sites Type Status Location Placement Date Removal Da te Hemodialysis Cath Double 05/10/24 Tunneled catheter Right Internal Jugular Active Right Neck (side) - Anterior 05/10/2024 Hemodialysis Cath Triple 05/03/24 Non-tunneled catheter Right Internal Jugular Inactive Right Neck (side) - Anterior 05/03/2024 05/10/2024 Historical Dialysis Procedures Date BP Pre BP Post Weight Pre Weight Post Treatment Duration Start Time End Time Achieved BFR Vascular Access from Last 30 Days Procedures Procedure Name Priority Date/Time Associated Diagnosis [...] case moved to follow donor/recipient case - [facility] 08/22@1122- Per Rakel via phone call reschedule to 09/26- [facility] ECG 12-LEAD Routine 11/07/2024 6:16 AM CDT POC BLOOD GAS AND CHEMISTRIES, ARTERIAL Routine 11/07/2024 5:57 AM CDT EGFR Routine 05/12/2024 8:57 PM CODING MACHINE OPERATOR HEPATITIS C ANTIBODY Routine 05/03/2024 2:36 AM CODING MACHINE OPERATOR HEMOGLOBIN A1C Routine 05/03/2024 2:36 AM CODING MACHINE OPERATOR from Last 3 Months or Most Recently Relevant to Health Maintenance Allergies Active Allergy Reactions Criticality Noted Date Comments Codeine Palpitations Low 08/11/2019 Fluticasone Propion-Salmeterol Rash,Shortness of breath High 03/22/2024 Thrush Medications albuterol HFA (PROVENTIL HFA,VENTOLIN HFA,PROAIR HFA) 90 mcg/actuation inhalerIndications:A cute Asthma Attack,Bronchospasm Prevention Inhale 2 puffs every 4 (four) hours as needed Active montelukast (SINGULAIR) 10 mg tabletIndications:Ma intenance [...] 1 tablet by mouth daily 30 tablet 025 Active Additional Information Patient taking differently:1 tablet [...] by mouth once a week 4 capsule 025 Active Additional Information Patient taking differently:50,000 Units [...] day as needed for itching 30 tablet Active midodrine (PROAMATINE) 10 mg tabletIndications:Sy mptomatic Orthostatic Hypotension Take 2 tablets (20 mg total) by mouth 3 (three) times a day 180 tablet 025 Active droxidopa (NORTHERA) 200 mg tablet Please take 30 minutes before dialysis to prevent low blood pressure 12 capsule Active Additional Information Patient taking differently: Please take 30 minutes before dialysis to prevent low blood pressurePATIENT IS NOT TAKING- ON HOLD PER MD, Informant: Self, Reported on 08/28/2024 hydrocortisone (CORTENEMA) 100 mg/60 mL enema Insert 1 enema (100 mg total) into the rectum nightly as needed for irritation Active AsperFlex, lidocaine, 4 % creamIndications:ski n irritation,HEMRROIDS Apply topically daily Active omeprazole (PriLOSEC) 20 mg capsuleIndications:G ERD Take 1 capsule (20 mg total) by mouth every morning Active senna 8.6 mg tablet Take 1 tablet by mouth daily as needed for constipation Active sevelamer (RENVELA) 800 mg tabletIndications:Re nal [...] (08/13/2019): Added automatically from request for surgery [id number] Left nephrolithiasis 08/11/2019 Overview (08/11/2019): Added automatically from request for surgery [id number] Social History Tobacco Use Types Packs/Day Years [...] on file Legal Sex Female 7:24 PM CODING MACHINE OPERATOR Gender Identity Not on file Sexual Orientation [...] Mass Index 24.02 08/28/2024 5:15 PM CDT Results * Potassium (11/07/2024 6:04 PM CDT) Potassium, pl 4.0 3.3 - 4.9 mmol/L Blood 11/07/2024 6:04 PM CDT 11/07/2024 6:14 PM CDT Narrative [facility] - 11/07/2024 6:37 PM CDT Provider to discontinue after two normal results. us Carmelo Brown MD PhD LAB BLOOD ORDERABLES Corine l Result [facility] [place] [employer] [place] [address] * POCT glucose (11/07/2024 4:06 PM CDT) Glucose, POC 149 70 - 199 mg/dL Blood 11/07/2024 4:06 PM CDT 11/07/2024 4:06 PM CDT Carmelo Brown MD PhD LAB POCT ORDERABLES - DEV ICE Final Result Performing Organization Address [facility] Co de Phone Number [facility] [place] [address] * (ABNORMAL) Potassium, whole blood (11/07/2024 1:35 PM CDT) Pathologist [facility] Potassium, bld 5.8(H) 3.3 - 4.9 mmol/L Blood 11/07/2024 1:35 PM CDT 11/07/2024 1:59 PM CDT Narrative [facility] - 11/07/2024 2:10 PM CDT Draw with HD us Antoine Segura TORCH STRAIGHTENER LAB BLOOD ORDERABLES Fi nal Result Performing Organization Address [facility]/ZIP Co de Phone Number [facility] [place] [address] * Hepatitis B Surface Antigen Blood (11/07/2024 1:35 PM CDT) Pathologist [facility] HepBsAg Nonreactive Nonreactive Blood 11/07/2024 1:35 PM CDT 11/07/2024 2:03 PM CDT Narrative [facility] - 11/07/2024 2:39 PM CDT Dialysis will draw us Antoine Segura TORCH STRAIGHTENER LAB MICROBIOLOGY - GENE RAL ORDERABLES Final Result Performing Organization Address City/[facility]/ZIP Co de Phone Number [facility] [place] [address] * (ABNORMAL) Potassium, whole blood (11/07/2024 11:40 AM CDT) Pathologist [facility] Potassium, bld 6.5(C) 3.3 - 4.9 mmol/L Comment:Repeated and verifie d. Blood 11/07/2024 11:4 0 AM CDT 11/07/2024 11:47 AM CDT us Carmelo Brown MD PhD LAB BLOOD ORDERABLES Corine l Result Performing Organization Address [facility] Co de Phone Number [facility] [place] [address] * Critical Result Callback Chemistry (11/07/2024 11:40 AM CDT) Pathologist [facility] Date Notified [id number] Time Notified 1223 [facility] TestName Potassium Plasma [facility] Called/Read Back Genesis [facility] Credentials RN [facility] ANDREWS Called By virgie [facility] Blood 11/07/2024 11:4 0 AM CDT 11/07/2024 11:57 AM CDT us Roxi Segura MD LAB BLOOD ORDERABLES Final Result Performing Organization Address City/[facility]/ZIP Co de Phone Number [facility] [place] [address] * Critical Result Callback Chemistry (11/07/2024 11:40 AM CDT) [facility] Date Notified [id number] Time Notified 1202 [facility] TestName Potassium WB [facility] Called/Read Back Adebayo Brand [facility] Credentials RN [facility] Called By virgie [facility] Blood 11/07/2024 11:4 0 AM CDT 11/07/2024 11:47 AM CDT us Carmelo Brown MD PhD LAB BLOOD ORDERABLES Corine l Result [facility] [place] [address] * (ABNORMAL) Potassium (11/07/2024 11:40 AM CDT) [facility] Potassium, pl 7.0(C) 3.3 - 4.9 mmol/L Blood 11/07/2024 11:4 0 AM CDT 11/07/2024 11:47 AM CDT Narrative [facility] - 11/07/2024 12:18 PM CDT Provider to discontinue after two normal results. us Roxi Segura MD LAB BLOOD ORDERABLES Final Result [facility] [place] [address] * (ABNORMAL) POC Blood Gas and Chemistries, Venous - (11/07/2024 11:04 AM CDT) [facility] pH, Love POC 7.37 7.32 - 7.43 pCO2, love POC 38(L) 40 - 50 mmHg [facility] pO2, love POC 61 mmHg [facility] Na, POC 126(L) 135 - 145 mmol/L [facility] K POC 6.6(C) 3.3 - 4.9 mmol/L [facility] Comment: Interpretive Data Not all point of care methods assess for hemolysis. Confirm with instrument and retest K+ if not consistent with clinical signs and symptoms. Current Interpretive Data was last revised on 2023. Cl, POC 91(L) 97 - 110 mmol/L [facility] Ionized Ca, POC 4.92 4.50 - 5.10 mg/dL [facility] Glucose, POC 147 70 - 199 mg/dL [facility] Lactate POC 2.3(H) 0.7 - 2.0 mmol/L [facility] O2 Sat, Love POC ([place]) 90 % [facility] HCO3, Love POC 22 20 - 30 mmol/L [facility] Hct, POC 34.0(L) 36.3 - 45.3 % [facility] Total Hb, POC 11.3(L) 11.9 - 15.5 g/dL [facility] Blood 11/07/2024 11:0 4 AM CDT 11/07/2024 11:04 AM CDT Carmelo Brown MD PhD LAB POCT ORDERABLES - DEV ICE Final Result [facility] [place] [address] * POCT glucose (11/07/2024 10:53 AM CDT) Glucose, POC 163 70 - 199 mg/dL Blood 11/07/2024 10:5 3 AM CDT 11/07/2024 10:53 AM CDT Carmelo Brown MD PhD LAB POCT ORDERABLES - DEV ICE Final Result [facility] [place] [address] * POCT glucose (11/07/2024 9:04 AM CDT) Glucose, POC 160 70 - 199 mg/dL Blood 11/07/2024 9:04 AM CDT 11/07/2024 9:04 AM CDT us Carmelo Brown MD PhD LAB POCT ORDERABLES - DEV ICE Final Result [facility] [place] [address] * Airway (11/07/2024 8:03 AM CDT) Narrative [...] tape Number of attempts: 1 us Ja Johnson III, MD PhD ANESTHESIA ORDERABLES Final Result * ECG 12 lead (11/07/2024 6:16 AM CDT) Ventricular Rate EKG/Min 76 BPM [facility] Atrial Rate 76 BPM [facility] SC-Interval (MSEC) 176 ms [facility] QRS-Interval (MSEC) 72 ms [facility] QT-Interval (MSEC) 388 ms [facility] QTc 436 ms [facility] P [place] 58 degrees [facility] R [place] 74 degrees [facility] T [place] 31 degrees [facility] Diagnosis Normal sinus rhythm Low voltage QRS Borderline ECG No previous ECGs available Confirmed by Filipe Moss MD ([id number]) on 11/07/2024 9:44:04 AM [facility] 11/07/2024 6:16 AM CDT 11/07/2024 9:44 AM CDT Figueroa Noonan MD ECG ORDERABLES Final Result Performing Organization Address [facility]/ZIP Co de Phone Number [facility] * (ABNORMAL) POC Blood Gas and Chemistries, Arterial - (11/07/2024 5:57 AM CDT) Na, POC 127(L) 135 - 145 mmol/L K POC 5.5(H) 3.3 - 4.9 mmol/L [facility] Comment: Interpretive Data Not all point of care methods assess for hemolysis. Confirm with instrument and retest K+ if not consistent with clinical signs and symptoms. Current Interpretive Data was last revised on 2023. Glucose, POC 156 70 - 199 mg/dL [facility] Hct, POC 37.0 36.3 - 45.3 % [facility] Total Hb, POC 12.3 11.9 - 15.5 g/dL [facility] Blood 11/07/2024 5:57 AM CDT 11/07/2024 5:57 AM CDT Carmelo Brown MD PhD LAB POCT ORDERABLES - DEV ICE Final Result [facility] [place] [address] * (ABNORMAL) eGFR (05/12/2024 8:57 PM CODING MACHINE OPERATOR) eGFR 12(L) >=60 mL/min/1. 73 m2 Comment: [...] last reviewed 2021. Blood 05/12/2024 8:57 PM CODING MACHINE OPERATOR 05/12/2024 9:32 PM CODING MACHINE OPERATOR us Tu Lozano MD LAB BLOOD ORDERABLES Final Result Performing Organization Address City/[facility] Co de Phone Number [facility] [place] [address] * Hepatitis C antibody Blood (05/03/2024 2:36 AM CODING MACHINE OPERATOR) [facility] Hep C Ab Nonreactive Nonreactive Comment:Antibodies to HCV no t detected. Does NOT exclude the possibility of recent exposure to HCV. Current interpretive data was last revised on 21 Blood 05/03/2024 2:36 AM CODING MACHINE OPERATOR 05/03/2024 3:12 AM CODING MACHINE OPERATOR us Troy Ramirez MD LAB MICROBIOLOGY - GENERAL OR DERABLES Final Result Performing Organization Address [facility] Co de Phone Number [facility] [place] [address] * (ABNORMAL) Hemoglobin A1c (05/03/2024 2:36 AM CODING MACHINE OPERATOR) Pathologist [facility] Hgb A1C 6.2(H) 4.0 - 5.6 % Estimated Average Glucose 131 mg/dL [facility] Comment: The ADA recommends reporting an estimated Average Glucose (eAG) with all Hemoglobin A1c results using the equation derived from a study of 507 normal and diabetic adults. Minority populations were underrepresented and children were not included. (Diabetes Care 2020; 43(S1): S66-S76). The eAG is not equivalent to a fasting glucose. Blood 05/03/2024 2:36 AM CODING MACHINE OPERATOR 05/03/2024 2:59 AM CODING MACHINE OPERATOR us Troy Ramirez MD LAB BLOOD ORDERABLES Final Re sult [facility] [place] [address] from Last 3 Months or Most Recently Relevant to Health Maintenance
--- OUTSIDE RECORDS SUMMARY | 2024-11-17 13:30 | XMS_ITS | Clinical Summary ---
Author Organization [facility] Address [address] [place] [address] Care Team Providers Care Facility Maintenance Supervisor Name Role Phone Unavailable Primary Care Provider [...]
--- OUTSIDE RECORDS SUMMARY | 2024-11-17 13:30 | XMS_ITS | Encounter Summary ---
Author Organization [facility] Address [address] [place] [address] Care Team Providers Care Printing Manager Name Role Phone León Varela MD Primary Care Provider [phone] Encounter Details Date Type Department Care Team (Late st Contact Info) Description 05/17/2019 Lab Requisition [facility] DermPath Lab [address], [place] [address] Disha Gutierrez MD [address] [facility] [address] [place] [address] Social History Tobacco Use Types Packs/Day Years Used Date Smoking Tobacco: Never Assessed Comments Unknown Sex and Gender Information Value Date Recorded Sex Assigned at Not on file Legal Sex Female 5:46 PM HEALTH SCIENCES PROGRAM COORDINATOR Gender Identity Not on file Sexual Orientation Not on file documented as of this encounter Plan of Treatment Not on file documented as of this encounter Procedures Procedure Name Priority Date/Time Associated Diagnosis Comments DERMATOPATHOLOGY Routine 05/16/2019 12:0 0 AM HEALTH SCIENCES PROGRAM COORDINATOR documented in this encounter Results * DERMATOPATHOLOGY (05/16/2019 12:00 AM HEALTH SCIENCES PROGRAM COORDINATOR) Case Report Dermatopathology Report Case: [id number] Authorizing Provider: Disha Gutierrez MD Collected: 05/16/2019 12:00 AM Ordering Location: [facility] DermPath Lab Received: 05/17/2019 10:05 AM Pathologist: Emely Burt MD Specimens: A) - Skin, left hand B) - Skin, left 3rd finger 0 6:09 PM HEALTH SCIENCES PROGRAM COORDINATOR DERMATOPATHOLOGY LABORATORY Final Diagnosis Specimen A. SKIN, left hand: HYPERPLASTIC (HYPERTROPHIC) ACTINIC KERATOSIS (L57.0) Specimen B. SKIN, left 3rd finger: SQUAMOUS CELL CARCINOMA IN SITU, PRESENT AT THE BASE OF THE SPECIMEN (D04.62) (see microscopic description and comment) 0 6:09 PM [facility] DERMATOPATHOLOGY LABORATORY at [address]09 HEALTH SCIENCES PROGRAM COORDINATOR Clinical History A-B: R/O SCC, painful pink papules. 0 6:09 PM [facility] DERMATOPATHOLOGY LABORATORY Gross Description Specimen A: Received is one formalin filled container labeled with the patient's name and designated left hand. The specimen consists of a shave measuring [id number]. Jar 0. Specimen B: Received is one formalin filled container labeled with the patient's name and designated left 3rd finger. The specimen consists of a shave measuring [id number]. Jar 0. 0 6:09 PM [facility] DERMATOPATHOLOGY LABORATORY Microscopic Description Specimen A. SKIN, [...] cannot be ruled out. 0 6:09 PM [facility] DERMATOPATHOLOGY LABORATORY Disclaimer An external and internal positive and negative controls are appropriate for the histochemical, immunohistochemical and immunofluorescence stain(s) in this case (if any), except where stated explicitly. The performance characteristics of the stain(s) cited in this report were developed and its performance characteristic determined by the Dermatopathology Laboratory at [facility], directed by Dr. Cole Gonzáles. These tests need not be, and therefore are not, approved by the [place] Food and Drug Administration. The tests are used for clinical purposes. Billing Codes Specimen Charges Stain Charges 74212 76567 1 1 0 6:09 PM [facility] DERMATOPATHOLOGY LABORATORY Embedded Images 0 6:09 PM [facility] DERMATOPATHOLOGY LABORATORY Pathology/Cytology TISSUE SPECIMEN FROM SKIN / Unknown 05/16/2019 05/17/2019 10:05 AM HEALTH SCIENCES PROGRAM COORDINATOR Miscellaneous samples (specimen) TISSUE SPECIMEN FROM SKIN / Unknown 05/16/2019 05/17/2019 10:05 AM HEALTH SCIENCES PROGRAM COORDINATOR Disha Gutierrez MD LAB - PATHOLOGY/CYTOLOGY ORD ERABLES Final Result DERMATOPATHOLOGY LABORATORY [facility] - Department of Dermatology [address] [place] [address], 5th Floor Lab [address] [phone] documented in this encounter Visit Diagnoses Not on filedocumented in this encounter Care Teams Printing Manager Relationship Specialty Start Date End Date León Varela MD [facility] [place] [address] PCP - General 04/29/14 documented as of this encounter
[2024-11-17 13:45] VITALS: BP 98/43; PULSE 79; RESP 18; TEMP 36.3; O2SAT 100
--- NOTE | 2024-11-17 14:32 | PC.NURSE ---
Pt declined to be seen due to wait time, pt states she was going to go to [place] instead, there is too much going on here. Pt ambulated out in NAD.
--- OUTSIDE RECORDS SUMMARY | 2024-11-17 14:53 | XMS_ITS | Encounter Summary ---
Author Organization [facility] Address [address] [address] Care Team Providers Care Preschool Teacher Assistant Name Role Phone León Varela MD Primary Care Provider [phone] Encounter Details Date Type Department Care Team (Late st Contact Info) Description 08/22/2022 Lab Requisition [facility] DermPath Lab [address] [facility] [place] [address] Disha Gutierrez MD [address] [facility] 3 DEPT [place] [address] Social History Tobacco Use Types Packs/Day Years Used Date Smoking Tobacco: Never Assessed Comments Unknown Sex and Gender Information Value Date Recorded Sex Assigned at Not on file Legal Sex Female 5:46 PM PRESS OPERATOR PRINTING Gender Identity Not on file Sexual Orientation Not on file documented as of this encounter Plan of Treatment Not on file documented as of this encounter Procedures Procedure Name Priority Date/Time Associated Diagnosis Comments DERMATOPATHOLOGY Routine 08/22/2022 3:38 PM CDT documented in this encounter Results * DERMATOPATHOLOGY (08/22/2022 3:38 PM CDT) Case Report Dermatopathology Report Case: [id number] Authorizing Provider: Disha Gutierrez MD Collected: 08/22/2022 03:38 PM Ordering Location: [facility] DermPath Lab Received: 08/23/2022 12:25 PM Pathologist: [...] characteristic determined by the Dermatopathology Laboratory at [facility], directed by Dr. Cole Gonzáles. These tests need not be, and therefore are not, approved by the [place] Food and Drug Administration. The tests are used for clinical purposes. Billing Codes Specimen Charges Stain Charges 44509 14498 34103 54088 10022 1 1 1 1 1 3 3:13 [...] PATHOLOGY/CYTOLOGY ORD ERABLES Final Result DERMATOPATHOLOGY LABORATORY [facility] - Department of Dermatology [facility] [address] [place] [address], [address] Floor [address] [phone] documented in this encounter Visit Diagnoses Not on filedocumented in this encounter Care Teams Preschool Teacher Assistant Relationship Specialty Start Date End Date León Varela MD [address] [place] [address] PCP - General 04/29/14 documented as of this encounter
--- OUTSIDE RECORDS SUMMARY | 2024-11-17 14:53 | XMS_ITS | Clinical Summary ---
Author Organization [facility] Address [address] [place] [address] Care Team Providers Care Customer Account Manager Name Role Phone León Varela MD Primary Care Provider [phone] Source Comments [facility],non-owned Affiliates and Associated Physician Practices is amultiple site organization consisting of ambulatory clinics and hospital sitesin [place], [place], [place] and [place]. This disclosure is being madepursuant to the Care Everywhere program and may not contain all information available regarding this patient. Last updated 17.[facility] Allergies Active Allergy Reactions Criticality Noted Date [...] on file Legal Sex Female 5:46 PM SURVEY INSTRUMENT OPERATOR Gender Identity Not on file Sexual [...] this topic Insurance [employer] Care Teams Customer Account Manager Relationship Specialty Start Date End Date León Varela MD [facility] [place] [address] PCP - General 04/29/14
--- OUTSIDE RECORDS SUMMARY | 2024-11-17 14:53 | XMS_ITS | Clinical Summary ---
Author Organization [facility] Address [address] [place] [address] Care Team Providers Care Core Drier Name Role Phone León Varela MD Primary Care Provider [phone] Roger Morales MD Unavailable [phone] Disha Gutierrez MD Unavailable [phone] Allergies Active Allergy Reactions Criticality Noted Date [...] (08/13/2019): Added automatically from request for surgery [id number] Left nephrolithiasis 08/11/2019 Overview (08/11/2019): Added automatically from request for surgery [id number] Encounters Date Type Department Care Team Description 11/07/2024 7:30 AM CDT - 11/07/2024 10:20 AM CDT Surgery [facility] [address] [place] [address] Carmelo Brown MD PhD LEFT RADIOCEPHALIC AV FISTULA CREATION 11/07/2024 7:25 AM CDT Anesthesia Event [facility] [address] [place] [address] Ja Johnson III, MD PhD Violette Vallecillo NP 11/07/2024 5:27 AM CDT - 11/07/2024 6:59 PM CDT Hospital Encounter [facility] [address] [place] [address] Carmelo Brown MD PhD ESRD (end stage renal disease) (Primary Dx); Encounter regarding vascular access for dialysis for ESRD (HCC) Discharge Disposition: Discharge to home or self care 11[facility] [address] [facility] [place] [address] [place] [address] Carmelo Brown MD PhD 10/28/2024 [facility] [address] [place] [address] [place] [address] Carmelo Brown MD PhD 09/26/2024 5:18 AM CDT - 09/26/2024 5:20 AM CDT Hospital Encounter [facility] [address] [place] [address] Carmelo Brown MD PhD Discharge Disposition: Discharge to home or self care 09/26/2024 [facility] [address] [place] [address] [place] [address] Carmelo Brown MD PhD 09/25/2024 [facility] [address] [place] [address] [place] [address] Carmelo Brwon MD PhD 08/22/2024 Telephone [facility] Medicine Surgery [address] [place] [address] [place] [address] Carmelo Brown MD PhD from Last 3 [...] CREATION; Surgeon: Carmelo Brown MD PhD; Location: [facility] OR POD 5; Service: Transplant; Laterality: Left; [...] on file Legal Sex Female 7:24 PM INSTRUCTOR DECORATING Gender Identity Not on file Sexual Orientation [...] [employer] Implanted Type Area Power Ballast Machine Operator Device Identifier Shelf Expiration Date Model / Serial / Lot [facility] [employer] Dur[employer]low Embosafe 15.5fr 24cm Basic 2 Lumen Kit Catheter [id number] - [id number] Implanted:Qty: 1 on 05/10/2024 by Palomo Guzmán MD at [facility] [employer] 05/17/2026 [id number] / / [id number] Explanted Type Area Power Ballast Machine Operator Device Identifier Shelf Expiration Date Model / Serial / Lot [employer] [id number] Inlay [place] 6fr 24cm Pusher Fluoro Marker Atraumatic Insertion Latex Free - Sn/A - [id number] Implanted:Qty: 1 on 08/11/2019 by Zenaida Romero MD at [facility] Explanted:Qty: 1 on 09/04/[address] [facility] Stent Left: Ureter [employer] [id number] 07/26/2023 [id number] / N/A / [id number] Procedures Procedure Name Priority Date/Time Associated Diagnosis [...] case moved to follow donor/recipient case - [facility] 08/22@1122- Per Rakel via phone call reschedule to 09/26- [facility] ECG 12-LEAD Routine 11/07/2024 6:16 AM CDT POC BLOOD GAS AND CHEMISTRIES, ARTERIAL Routine 11/07/2024 5:57 AM CDT EGFR Routine 05/12/2024 8:57 PM INSTRUCTOR DECORATING HEPATITIS C ANTIBODY Routine 05/03/2024 2:36 AM INSTRUCTOR DECORATING HEMOGLOBIN A1C Routine 05/03/2024 2:36 AM INSTRUCTOR DECORATING from Last 3 Months or Most Recently Relevant to Health Maintenance Results * Potassium (11/07/2024 6:04 PM CDT) Potassium, pl 4.0 3.3 - 4.9 mmol/L Blood 11/07/2024 6:04 PM CDT 11/07/2024 6:14 PM CDT Narrative [facility] - 11/07/2024 6:37 PM CDT Provider to discontinue after two normal results. Carmelo Brown MD PhD LAB BLOOD ORDERABLES Corine l Result Performing Organization Address City/[facility]/ZIP Co de Phone Number [facility] Department [place] [address] * POCT glucose (11/07/2024 4:06 PM CDT) Glucose, POC 149 70 - 199 mg/dL Blood 11/07/2024 4:06 PM CDT 11/07/2024 4:06 PM CDT Carmelo Brown MD PhD LAB POCT ORDERABLES - DEV ICE Final Result [facility] [place] [address] * (ABNORMAL) Potassium, whole blood (11/07/2024 1:35 PM CDT) Potassium, bld 5.8(H) 3.3 - 4.9 mmol/L Blood 11/07/2024 1:35 PM CDT 11/07/2024 1:59 PM CDT Narrative [facility] - 11/07/2024 2:10 PM CDT Draw with HD Antoine Segura FIREBRICK AND REFRACTORY TILE REPAIRER LAB BLOOD ORDERABLES Fi nal Result Performing Organization Address [facility] Co de Phone Number [facility] Department [place] [address] * Hepatitis B Surface Antigen Blood (11/07/2024 1:35 PM CDT) Pathologist [facility] HepBsAg Nonreactive Nonreactive Blood 11/07/2024 1:35 PM CDT 11/07/2024 2:03 PM CDT Narrative [facility] - 11/07/2024 2:39 PM CDT Dialysis will draw Antoine Segura [employer] REFRACTORY TILE REPAIRER LAB MICROBIOLOGY - GENE RAL ORDERABLES Final Result Performing Organization Address [facility] de Phone Number [facility] [place] [address] * (ABNORMAL) Potassium, whole blood (11/07/2024 11:40 AM CDT) Pathologist [facility] Potassium, bld 6.5(C) 3.3 - 4.9 mmol/L Comment:Repeated and verifie d. Blood 11/07/2024 11:4 0 AM CDT 11/07/2024 11:47 AM CDT Carmelo Brown MD PhD LAB BLOOD ORDERABLES Corine l Result Performing Organization Address [facility] Co de Phone Number [facility] [place] [address] * Critical Result Callback Chemistry (11/07/2024 11:40 AM CDT) Date Notified 20241107 Time Notified 1223 [facility] TestName Potassium Plasma [facility] Called/Read Back Genesis ANDREWS Credentials RN [facility] Called By virgie [facility] Blood 11/07/2024 11:4 0 AM CDT 11/07/2024 11:57 AM CDT us Roxi Segura MD LAB BLOOD ORDERABLES Final Result Performing Organization Address [facility] Co de Phone Number [facility] [place] [address] * Critical Result Callback Chemistry (11/07/2024 11:40 AM CDT) Date Notified 20241107 Time Notified 1202 [facility] TestName Potassium WB [facility] Called/Read Back Adebayo [facility] Credentials RN [facility] Called By virgie [facility] Blood 11/07/2024 11:4 0 AM CDT 11/07/2024 11:47 AM CDT us Carmelo Brown MD PhD LAB BLOOD ORDERABLES Corine l Result Performing Organization Address [facility] Co de Phone Number [facility] [place] [address] * (ABNORMAL) Potassium (11/07/2024 11:40 AM CDT) Potassium, pl 7.0(C) 3.3 - 4.9 mmol/L Blood 11/07/2024 11:4 0 AM CDT 11/07/2024 11:47 AM CDT Narrative [facility] - 11/07/2024 12:18 PM CDT Provider to discontinue after two normal results. us Roxi Segura MD LAB BLOOD ORDERABLES Final Result Performing Organization Address City/[facility]/ZIP Co de Phone Number [facility] [place] [address] * (ABNORMAL) POC Blood Gas and Chemistries, Venous - (11/07/2024 11:04 AM CDT) pH, Love POC 7.37 7.32 - 7.43 pCO2, love POC 38(L) 40 - 50 mmHg [facility] pO2, love POC 61 mmHg [facility] Na, POC 126(L) 135 - 145 mmol/L [facility] K POC 6.6(C) 3.3 - 4.9 mmol/L [facility] Comment: Interpretive Data Not all point of care methods assess for hemolysis. Confirm with instrument and retest K+ if not consistent with clinical signs and symptoms. Current Interpretive Data was last revised on 2023. Cl, POC 91(L) 97 - 110 mmol/L [facility] Ionized Ca, POC 4.92 4.50 - 5.10 mg/dL [facility] Glucose, POC 147 70 - 199 mg/dL [facility] Lactate POC 2.3(H) 0.7 - 2.0 mmol/L [facility] O2 Sat, Love POC ([place]) 90 % [facility] HCO3, Love POC 22 20 - 30 mmol/L [facility] Hct, POC 34.0(L) 36.3 - 45.3 % [facility] Total Hb, POC 11.3(L) 11.9 - 15.5 g/dL [facility] Blood 11/07/2024 11:0 4 AM CDT 11/07/2024 11:04 AM CDT Carmelo Brown MD PhD LAB POCT ORDERABLES - DEV ICE Final Result Performing Organization Address City/[facility] Co de Phone Number [facility] Department [place] [address] * POCT glucose (11/07/2024 10:53 AM CDT) Pathologist [facility] Glucose, POC 163 70 - 199 mg/dL Blood 11/07/2024 10:5 3 AM CDT 11/07/2024 10:53 AM CDT Carmelo Brown MD PhD LAB POCT ORDERABLES - DEV ICE Final Result Performing Organization Address City/[facility] Co de Phone Number [facility] Department [place] [address] * POCT glucose (11/07/2024 9:04 AM CDT) Glucose, POC 160 70 - 199 mg/dL Blood 11/07/2024 9:04 AM CDT 11/07/2024 9:04 AM CDT us Carmelo Brown MD PhD LAB POCT ORDERABLES - DEV ICE Final Result Performing Organization Address [facility] de Phone Number [facility] [place] [address] * Airway (11/07/2024 8:03 AM CDT) Narrative [...] AM CDT) Ventricular Rate EKG/Min 76 BPM [facility] Atrial Rate 76 BPM [facility] TN-Interval (MSEC) 176 ms [facility] QRS-Interval (MSEC) 72 ms [facility] QT-Interval (MSEC) 388 ms [facility] QTc 436 ms [facility] P [place] 58 degrees [facility] R [place] 74 degrees [facility] T [place] 31 degrees [facility] Diagnosis Normal sinus rhythm Low voltage QRS Borderline ECG No previous ECGs available Confirmed by Filipe Moss MD ([id number]) on 11/07/2024 9:44:04 AM [facility] 11/07/2024 6:16 AM CDT 11/07/2024 9:44 AM CDT Figueroa Noonan MD ECG ORDERABLES Final Result Performing Organization Address City/[facility]/ZIP Co de Phone Number [facility] * (ABNORMAL) POC Blood Gas and Chemistries, Arterial - (11/07/2024 5:57 AM CDT) Pathologist [facility] Na, POC 127(L) 135 - 145 mmol/L K POC 5.5(H) 3.3 - 4.9 mmol/L [facility] Comment: Interpretive Data Not all point of care methods assess for hemolysis. Confirm with instrument and retest K+ if not consistent with clinical signs and symptoms. Current Interpretive Data was last revised on 2023. Glucose, POC 156 70 - 199 mg/dL [facility] Hct, POC 37.0 36.3 - 45.3 % [facility] Total Hb, POC 12.3 11.9 - 15.5 g/dL [facility] Blood 11/07/2024 5:57 AM CDT 11/07/2024 5:57 AM CDT Carmelo Brown MD PhD LAB POCT ORDERABLES - DEV ICE Final Result Performing Organization Address City/[facility]/ZIP Co de Phone Number [facility] Department [place] [address] * (ABNORMAL) eGFR (05/12/2024 8:57 PM INSTRUCTOR DECORATING) eGFR 12(L) >=60 mL/min/1. 73 m2 Comment: [...] last reviewed 2021. Blood 05/12/2024 8:57 PM INSTRUCTOR DECORATING 05/12/2024 9:32 PM INSTRUCTOR DECORATING us Tu Lozano MD LAB BLOOD ORDERABLES Final Result [facility] [place] [address] * Hepatitis C antibody Blood (05/03/2024 2:36 AM INSTRUCTOR DECORATING) Pathologist [facility] Hep C Ab Nonreactive Nonreactive Comment:Antibodies to HCV no t detected. Does NOT exclude the possibility of recent exposure to HCV. Current interpretive data was last revised on 21 Blood 05/03/2024 2:36 AM INSTRUCTOR DECORATING 05/03/2024 3:12 AM INSTRUCTOR DECORATING us Troy Ramirez MD LAB MICROBIOLOGY - GENERAL OR DERABLES Final Result [facility] [place] [address] * (ABNORMAL) Hemoglobin A1c (05/03/2024 2:36 AM INSTRUCTOR DECORATING) Hgb A1C 6.2(H) 4.0 - 5.6 % [...] a fasting glucose. Blood 05/03/2024 2:36 AM INSTRUCTOR DECORATING 05/03/2024 2:59 AM INSTRUCTOR DECORATING us Troy Ramirez MD LAB BLOOD ORDERABLES Final Re sult [facility] [place] [address] from Last 3 Months or Most Recently Relevant to Health Maintenance Additional Health Concerns Active Problems Noted Date Diagnosed Date Autogenerated Problem 09/30/2024 Insurance MEDICARE MEDICARE TRANSPLANT [facility] [employer] Advance Directives For more information, please contact: [phone] * Full Code (Latest Code Status on File) Date Activated Date Inactivated Comments 05/03/2024 2:16 AM 05/14/2024 1:09 AM * Full Code Date Activated Date Inactivated Comments 08/12/2019 3:28 AM 08/12/2019 7:14 PM Healthcare Agents on File Name Relationship Healthcare Agent Relationshi p Communication [place] Keerthijean Spouse Health Care Agent Care Teams Core Drier Relationship Specialty Start Date End Date León Varela MD [address] [place] [id number] PCP - General Family Medicine 05/02/24 Roger Morales MD [address] [facility] [address] [place] [address] Referring Physician Nephrology 05/08/24 Disha Gutierrez MD [address] [place] [id number] Referring Physician Dermatology 06/18/24
--- OUTSIDE RECORDS SUMMARY | 2024-11-17 14:53 | XMS_ITS ---
Author Organization [facility] Address [address] [place] [address] Care Team Providers Care Circulation Assistant Name Role Phone León Varela MD Primary Care Provider [phone] Roger Morales MD Unavailable [phone] Disha Gutierrez MD Unavailable [phone] Dialysis Plan of Treatment Dialysis Prescription As-Of [...] case moved to follow donor/recipient case - [facility] 08/22@1122- Per Rakel via phone call reschedule to 09/26- [facility] ECG 12-LEAD Routine 11/07/2024 6:16 AM CDT POC BLOOD GAS AND CHEMISTRIES, ARTERIAL Routine 11/07/2024 5:57 AM CDT EGFR Routine 05/12/2024 8:57 PM BLOCK TESTER HEPATITIS C ANTIBODY Routine 05/03/2024 2:36 AM BLOCK TESTER HEMOGLOBIN A1C Routine 05/03/2024 2:36 AM BLOCK TESTER from Last 3 Months or Most Recently [...] (08/13/2019): Added automatically from request for surgery [id number] Left nephrolithiasis 08/11/2019 Overview (08/11/2019): Added automatically from request for surgery [id number] Social History Tobacco Use Types Packs/Day Years [...] on file Legal Sex Female 7:24 PM BLOCK TESTER Gender Identity Not on file Sexual Orientation [...] PM CDT 11/07/2024 6:14 PM CDT Narrative [facility] - 11/07/2024 6:37 PM CDT Provider to discontinue after two normal results. us Carmelo Brown MD PhD LAB BLOOD ORDERABLES Corine l Result [facility] [place] [address] * POCT glucose (11/07/2024 4:06 PM CDT) Glucose, POC 149 70 - 199 mg/dL Blood 11/07/2024 4:06 PM CDT 11/07/2024 4:06 PM CDT Carmelo Brown MD PhD LAB POCT ORDERABLES - DEV ICE Final Result Performing Organization Address [facility] Co de Phone Number [facility] [place] [address] * (ABNORMAL) Potassium, whole blood (11/07/2024 1:35 PM CDT) Pathologist [facility] [place] Potassium, bld 5.8(H) 3.3 - 4.9 mmol/L Blood 11/07/2024 1:35 PM CDT 11/07/2024 1:59 PM CDT Narrative [facility] - 11/07/2024 2:10 PM CDT Draw with HD us Antoine Segura STAINED GLASS JOINER LAB BLOOD ORDERABLES Fi nal Result Performing Organization Address [facility]/ZIP Co de Phone Number [facility] [place] [address] * Hepatitis B Surface Antigen Blood (11/07/2024 1:35 PM CDT) Pathologist [facility] [place] HepBsAg Nonreactive Nonreactive Blood 11/07/2024 1:35 PM CDT 11/07/2024 2:03 PM CDT Narrative [facility] - 11/07/2024 2:39 PM CDT Dialysis will draw us Antoine Segura STAINED GLASS JOINER LAB MICROBIOLOGY - GENE RAL ORDERABLES Final Result Performing Organization Address City/[facility]/ZIP Co de Phone Number [facility] Department [place] [address] * (ABNORMAL) Potassium, whole blood (11/07/2024 11:40 AM CDT) Pathologist [facility] [place] Potassium, bld 6.5(C) 3.3 - 4.9 mmol/L Comment:Repeated and verifie d. Blood 11/07/2024 11:4 0 AM CDT 11/07/2024 11:47 AM CDT us Carmelo Brown MD PhD LAB BLOOD ORDERABLES Corine l Result Performing Organization Address [facility] Co de Phone Number [facility] Department [place] [address] * Critical Result Callback Chemistry (11/07/2024 11:40 AM CDT) Pathologist [facility] [place] Date Notified [id number] Time Notified 1223 [facility] TestName Potassium Plasma [facility] Called/Read Back Genesis [facility] Credentials RN [facility] ANDREWS Called By virgie [facility] Blood 11/07/2024 11:4 0 AM CDT 11/07/2024 11:57 AM CDT us Roxi Segura MD LAB BLOOD ORDERABLES Final Result Performing Organization Address City/[facility]/ZIP Co de Phone Number [facility] Department [place] [address] * Critical Result Callback Chemistry (11/07/2024 11:40 AM CDT) [facility] Date Notified [id number] Time Notified 1202 [facility] TestName Potassium WB [facility] Called/Read Back Adebayo rBand [facility] Credentials RN [facility] Called By virgie [facility] Blood 11/07/2024 11:4 0 AM CDT 11/07/2024 11:47 AM CDT us Carmelo Brown MD PhD LAB BLOOD ORDERABLES Corine l Result [facility] Department [place] [address] * (ABNORMAL) Potassium (11/07/2024 11:40 AM CDT) [facility] Potassium, pl 7.0(C) 3.3 - 4.9 mmol/L Blood 11/07/2024 11:4 0 AM CDT 11/07/2024 11:47 AM CDT Narrative [facility] - 11/07/2024 12:18 PM CDT Provider to discontinue after two normal results. us Roxi Segura MD LAB BLOOD ORDERABLES Final Result [facility] [place] [address] * (ABNORMAL) POC Blood Gas and Chemistries, Venous - (11/07/2024 11:04 AM CDT) [facility] pH, Love POC 7.37 7.32 - 7.43 pCO2, love POC 38(L) 40 - 50 mmHg [facility] pO2, love POC 61 mmHg [facility] Na, POC 126(L) 135 - 145 mmol/L [facility] K POC 6.6(C) 3.3 - 4.9 mmol/L [facility] Comment: Interpretive Data Not all point of care methods assess for hemolysis. Confirm with instrument and retest K+ if not consistent with clinical signs and symptoms. Current Interpretive Data was last revised on 2023. Cl, POC 91(L) 97 - 110 mmol/L [facility] Ionized Ca, POC 4.92 4.50 - 5.10 mg/dL [facility] Glucose, POC 147 70 - 199 mg/dL [facility] Lactate POC 2.3(H) 0.7 - 2.0 mmol/L [facility] O2 Sat, Love POC ([place]) 90 % [facility] HCO3, Love POC 22 20 - 30 mmol/L [facility] Hct, POC 34.0(L) 36.3 - 45.3 % [facility] Total Hb, POC 11.3(L) 11.9 - 15.5 g/dL [facility] Blood 11/07/2024 11:0 4 AM CDT 11/07/2024 11:04 AM CDT Carmelo Brown MD PhD LAB POCT ORDERABLES - DEV ICE Final Result [facility] [place] [address] * POCT glucose (11/07/2024 10:53 AM CDT) Glucose, POC 163 70 - 199 mg/dL Blood 11/07/2024 10:5 3 AM CDT 11/07/2024 10:53 AM CDT Carmelo Brown MD PhD LAB POCT ORDERABLES - DEV ICE Final Result [place] [address] * POCT glucose (11/07/2024 9:04 AM CDT) Glucose, POC 160 70 - 199 mg/dL Blood 11/07/2024 9:04 AM CDT 11/07/2024 9:04 AM CDT us Carmelo Brown MD PhD LAB POCT ORDERABLES - DEV ICE Final Result [facility] [place] [address] * Airway (11/07/2024 8:03 AM CDT) Narrative [...] BPM [facility] Atrial Rate 76 BPM [facility] MA-Interval (MSEC) 176 ms [facility] QRS-Interval (MSEC) 72 ms [facility] QT-Interval (MSEC) 388 ms [facility] QTc 436 ms [facility] P Era 58 degrees [facility] R Era 74 degrees [facility] T Era 31 degrees [facility] Diagnosis Normal sinus rhythm Low voltage QRS Borderline ECG No previous ECGs available Confirmed by Filipe Moss MD ([id number]) on 11/07/2024 9:44:04 AM [facility] 11/07/2024 6:16 AM CDT 11/07/2024 9:44 AM CDT Figueroa Noonan MD ECG ORDERABLES Final Result Performing Organization Address [facility]/ZIP Co de Phone Number [facility] * (ABNORMAL) POC Blood Gas and Chemistries, Arterial - (11/07/2024 5:57 AM CDT) Na, POC 127(L) 135 - 145 mmol/L K POC 5.5(H) 3.3 - 4.9 mmol/L [facility] Comment: Interpretive Data Not all point of care methods assess for hemolysis. Confirm with instrument and retest K+ if not consistent with clinical signs and symptoms. Current Interpretive Data was last revised on 2023. Glucose, POC 156 70 - 199 mg/dL [facility] Hct, POC 37.0 36.3 - 45.3 % [facility] Total Hb, POC 12.3 11.9 - 15.5 g/dL [facility] Blood 11/07/2024 5:57 AM CDT 11/07/2024 5:57 AM CDT Carmelo Brown MD PhD LAB POCT ORDERABLES - DEV ICE Final Result [facility] [place] [address] * (ABNORMAL) eGFR (05/12/2024 8:57 PM BLOCK TESTER) eGFR 12(L) >=60 mL/min/1. 73 m2 Comment: [...] last reviewed 2021. Blood 05/12/2024 8:57 PM BLOCK TESTER 05/12/2024 9:32 PM BLOCK TESTER us Tu Lozano MD LAB BLOOD ORDERABLES Final Result Performing Organization Address City/[facility] Co de Phone Number [facility] [place] [address] * Hepatitis C antibody Blood (05/03/2024 2:36 AM BLOCK TESTER) [facility] Hep C Ab Nonreactive Nonreactive Comment:Antibodies to HCV no t detected. Does NOT exclude the possibility of recent exposure to HCV. Current interpretive data was last revised on 21 Blood 05/03/2024 2:36 AM BLOCK TESTER 05/03/2024 3:12 AM BLOCK TESTER us Troy Ramirez MD LAB MICROBIOLOGY - GENERAL OR DERABLES Final Result Performing Organization Address [facility] Co de Phone Number [place] [address] * (ABNORMAL) Hemoglobin A1c (05/03/2024 2:36 AM BLOCK TESTER) Pathologist [facility] [place] Hgb A1C 6.2(H) 4.0 - 5.6 % Estimated Average Glucose 131 mg/dL [facility] Comment: The ADA recommends reporting an estimated Average Glucose (eAG) with all Hemoglobin A1c results using the equation derived from a study of 507 normal and diabetic adults. Minority populations were underrepresented and children were not included. (Diabetes Care 2020; 43(S1): S66-S76). The eAG is not equivalent to a fasting glucose. Blood 05/03/2024 2:36 AM BLOCK TESTER 05/03/2024 2:59 AM BLOCK TESTER us Troy Ramirez MD LAB BLOOD ORDERABLES Final Re sult [facility] Department [place] [address] from Last 3 Months or Most Recently Relevant to Health Maintenance
--- OUTSIDE RECORDS SUMMARY | 2024-11-17 14:53 | XMS_ITS | Clinical Summary ---
Author Organization [facility] Address [address] [place] [address] Phone Care Team Providers Care Hardware Developer Name Role Phone Yaw Rodriguez MD Primary Care Provider [phone] Allergies Active Allergy Reactions Criticality Noted Date [...] (06/25/2020): Added automatically from request for surgery [id number] Added automatically from request for surgery [id number] Family History Medical History Relation Comments Kidney [...] Due Date Last Done Comments Influenza Vaccine (#1) 2024 Insurance [employer] Care Teams Hardware Developer Relationship Specialty Start Date End Date Yaw Rodriguez MD PCP - General Family Medicine 04/22/20
--- OUTSIDE RECORDS SUMMARY | 2024-11-17 14:53 | XMS_ITS | Encounter Summary ---
Author Organization [facility] Address [address] [facility] [place] [address] Care Team Providers Care Entry Level Paralegal Name Role Phone León Varela MD Primary Care Provider [phone] Encounter Details Date Type Department Care Team (Late st Contact Info) Description 02/12/2024 Lab Requisition [facility] - DermPath Lab [address] [facility] [place] [address] aSvita Martini PA [address] [place] [address] Social History Tobacco Use Types Packs/Day Years Used Date Smoking Tobacco: Never Assessed Comments Unknown Sex and Gender Information Value Date Recorded Sex Assigned at Not on file Legal Sex Female 5:46 PM FINE ARTS MODEL Gender Identity Not on file Sexual Orientation Not on file documented as of this encounter Plan of Treatment Not on file documented as of this encounter Procedures Procedure Name Priority Date/Time Associated Diagnosis Comments DERMATOPATHOLOGY Routine 02/12/2024 2:00 PM FINE ARTS MODEL documented in this encounter Results * DERMATOPATHOLOGY (02/12/2024 2:00 PM FINE ARTS MODEL) Case Report Dermatopathology Report Case: [id number] Authorizing Provider: Savita Martini PA Collected: 02/12/2024 02:00 PM Ordering Location: [facility] - Received: 02/13/2024 12:36 PM DermPath Lab Pathologist: Key Johnson MD Specimen: Skin, left 4th finger 11:10 AM FINE ARTS MODEL DERMATOPATHOLOGY LABORATORY Final Diagnosis Specimen A. SKIN, left 4th finger: SQUAMOUS CELL CARCINOMA IN SITU, ACANTHOLYTIC, PRESENT AT THE BASE OF THE SPECIMEN (D04.62) (see microscopic description and comment) OVERLYING CUTANEOUS HORN (L85.8) 4 11:10 AM [facility] DERMATOPATHOLOGY LABORATORY at [address] FINE ARTS MODEL Clinical History HAK vs SCC 4 11:10 AM [facility] DERMATOPATHOLOGY LABORATORY Gross Description Specimen A: Received is one formalin filled container labeled with the patient's name and designated left 4th finger. The specimen consists of a shave biopsy measuring 6x4x1 mm. Jar 0. 11:10 AM [facility] DERMATOPATHOLOGY LABORATORY Microscopic Description Specimen A. [...] carcinoma cannot be ruled out. 11:10 AM [facility] DERMATOPATHOLOGY LABORATORY Disclaimer An external and internal positive and negative controls are appropriate for the histochemical, immunohistochemical and immunofluorescence stain(s) in this case (if any), except where stated explicitly. The performance characteristics of the stain(s) cited in this report were developed and its performance characteristic determined by the Dermatopathology Laboratory at [facility], directed by Dr. Cole Gonzáles. These tests need not be, and therefore are not, approved by the [place] Food and Drug Administration. The tests are used for clinical purposes. Billing Codes Specimen Charges Stain Charges 29636 1 4 11:10 AM [facility] DERMATOPATHOLOGY LABORATORY Embedded Images 11:10 AM [facility] DERMATOPATHOLOGY LABORATORY Pathology/Cytolo gy TISSUE SPECIMEN FROM SKIN / Unknown 02/12/2024 2:00 PM FINE ARTS MODEL 02/13/2024 12:36 PM FINE ARTS MODEL us Savita BAHENA LAB - PATHOLOGY/CYTOLOGY ORDERAB LES Final Result DERMATOPATHOLOGY LABORATORY [facility] - Department of Dermatology [facility] Specialized Medicine [facility] [facility], 3rd Floor [address] [phone] documented in this encounter Visit Diagnoses Not on filedocumented in this encounter Care Teams Entry Level Paralegal Relationship Specialty Start Date End Date León Varela MD [address] [place] [address] PCP - General 04/29/14 documented as of this encounter
--- OUTSIDE RECORDS SUMMARY | 2024-11-17 14:54 | XMS_ITS | Encounter Summary ---
Author Organization [facility] Address [address] [place] [address] Care Team Providers Care Ironer Machine Name Role Phone León Varela MD Primary Care Provider [phone] Encounter Details Date Type Department Care Team (Late st Contact Info) Description 05/17/2019 Lab Requisition [facility] DermPath Lab [address] [facility] [place] [address] Disha Gutierrez MD [address] [facility] [address] [place] [address] Social History Tobacco Use Types Packs/Day Years Used Date Smoking Tobacco: Never Assessed Comments Unknown Sex and Gender Information Value Date Recorded Sex Assigned at Not on file Legal Sex Female 5:46 PM MERCHANDISING LEAD Gender Identity Not on file Sexual Orientation Not on file documented as of this encounter Plan of Treatment Not on file documented as of this encounter Procedures Procedure Name Priority Date/Time Associated Diagnosis Comments DERMATOPATHOLOGY Routine 05/16/2019 12:0 0 AM MERCHANDISING LEAD documented in this encounter Results * DERMATOPATHOLOGY (05/16/2019 12:00 AM MERCHANDISING LEAD) Case Report Dermatopathology Report Case: [id number] Authorizing Provider: Disha Gutierrez MD Collected: 05/16/2019 12:00 AM Ordering Location: [facility] DermPath Lab Received: 05/17/2019 10:05 AM Pathologist: Emely Burt MD Specimens: A) - Skin, left hand B) - Skin, left 3rd finger 0 6:09 PM MERCHANDISING LEAD DERMATOPATHOLOGY LABORATORY Final Diagnosis Specimen A. SKIN, left hand: HYPERPLASTIC (HYPERTROPHIC) ACTINIC KERATOSIS (L57.0) Specimen B. SKIN, left 3rd finger: SQUAMOUS CELL CARCINOMA IN SITU, PRESENT AT THE BASE OF THE SPECIMEN (D04.62) (see microscopic description and comment) 0 6:09 PM [facility] DERMATOPATHOLOGY LABORATORY at [address] MERCHANDISING LEAD Clinical History A-B: R/O SCC, painful pink papules. 0 6:09 PM [facility] DERMATOPATHOLOGY LABORATORY Gross Description Specimen A: Received is one formalin filled container labeled with the patient's name and designated left hand. The specimen consists of a shave measuring 7x3x6yx. Jar 0. Specimen B: Received is one formalin filled container labeled with the patient's name and designated left 3rd finger. The specimen consists of a shave measuring 54b0m4pn. Jar 0. 0 6:09 PM [facility] DERMATOPATHOLOGY LABORATORY Microscopic Description Specimen [...] cannot be ruled out. 0 6:09 PM [facility] DERMATOPATHOLOGY LABORATORY Disclaimer An external and internal positive and negative controls are appropriate for the histochemical, immunohistochemical and immunofluorescence stain(s) in this case (if any), except where stated explicitly. The performance characteristics of the stain(s) cited in this report were developed and its performance characteristic determined by the Dermatopathology Laboratory at [facility], directed by Dr. Cole Gonzáles. These tests need not be, and therefore are not, approved by the [place] Food and Drug Administration. The tests are used for clinical purposes. Billing Codes Specimen Charges Stain Charges 00096 65296 1 1 0 6:09 PM [facility] DERMATOPATHOLOGY LABORATORY Embedded Images 0 6:09 PM [facility] DERMATOPATHOLOGY LABORATORY Pathology/Cytology TISSUE SPECIMEN FROM SKIN / Unknown 05/16/2019 05/17/2019 10:05 AM MERCHANDISING LEAD Miscellaneous samples (specimen) TISSUE SPECIMEN FROM SKIN / Unknown 05/16/2019 05/17/2019 10:05 AM MERCHANDISING LEAD Disha Gutierrez MD LAB - PATHOLOGY/CYTOLOGY ORD ERABLES Final Result DERMATOPATHOLOGY LABORATORY [facility] - Department of Dermatology [address] [place] [address], 5th Floor Lab [address] [phone] documented in this encounter Visit Diagnoses Not on filedocumented in this encounter Care Teams Ironer Machine Relationship Specialty Start Date End Date León Varela MD [facility] [place] [address] PCP - General 04/29/14 documented as of this encounter
--- OUTSIDE RECORDS SUMMARY | 2024-11-17 14:54 | XMS_ITS | Clinical Summary ---
Author Organization [facility] Address [address] [place] [address] Care Team Providers Care Vocational Rehabilitation Teacher Name Role Phone Unavailable Primary Care Provider [...]
== END 2024-11-17 14:52 | disposition left against medical advice (07) ==
LOC: ANHED 14:51
PROVIDERS: PCP Family Medicine
DX: R06.02 Shortness of breath (principal)
CPT/HCPCS: 99199

== ENCOUNTER 2024-11-21 09:50 | Outpatient (CLI) | payer MEDICARE, BC, SELFPAY ==
--- NOTE | ~2024-11-21 | XR_ITS ---
EXAMINATION: XR chest 2V 11/21/2024 10:13 INDICATION: Cough PROCEDURE: 2 view chest COMPARISON: No prior studies for comparison. FINDINGS: The lungs are clear. The cardiomediastinal silhouette is within normal limits. There are no pleural effusions. There is no pneumothorax suspected. Right IJ central venous catheter tip in the SVC. IMPRESSION: 1: NO ACUTE CARDIOPULMONARY DISEASE. Reviewed, dictated and finalized at location O.
--- OUTSIDE RECORDS SUMMARY | 2024-11-21 10:26 | XMS_ITS | Encounter Summary ---
Author Organization [facility] Address [address] [facility] [place] [address] Care Team Providers Care Mold Technician Name Role Phone León Varela MD Primary Care Provider [phone] Encounter Details Date Type Department Care Team (Late st Contact Info) Description 02/12/2024 Lab Requisition [facility] - DermPath Lab [address] [facility] [place] [address] Savita Martini PA [address] [place] [address] Social History Tobacco Use Types Packs/Day Years Used Date Smoking Tobacco: Never Assessed Comments Unknown Sex and Gender Information Value Date Recorded Sex Assigned at Not on file Legal Sex Female 5:46 PM COAT CUTTER Gender Identity Not on file Sexual Orientation Not on file documented as of this encounter Plan of Treatment Not on file documented as of this encounter Procedures Procedure Name Priority Date/Time Associated Diagnosis Comments DERMATOPATHOLOGY Routine 02/12/2024 2:00 PM COAT CUTTER documented in this encounter Results * DERMATOPATHOLOGY (02/12/2024 2:00 PM COAT CUTTER) Case Report Dermatopathology Report Case: [id number] Authorizing Provider: Savita Martini PA Collected: 02/12/2024 02:00 PM Ordering Location: [facility] Physician [facility] - Received: 02/13/2024 12:36 PM DermPath Lab Pathologist: Key Johnson MD Specimen: Skin, left 4th finger 11:10 AM COAT CUTTER DERMATOPATHOLOGY LABORATORY Final Diagnosis Specimen A. SKIN, left 4th finger: SQUAMOUS CELL CARCINOMA IN SITU, ACANTHOLYTIC, PRESENT AT THE BASE OF THE SPECIMEN (D04.62) (see microscopic description and comment) OVERLYING CUTANEOUS HORN (L85.8) 4 11:10 AM [facility] DERMATOPATHOLOGY LABORATORY at [address] COAT CUTTER Clinical History HAK vs SCC 4 11:10 AM [facility] DERMATOPATHOLOGY LABORATORY Gross Description Specimen A: Received is one formalin filled container labeled with the patient's name and designated left 4th finger. The specimen consists of a shave biopsy measuring 6x4x1 mm. Jar 0. 11:10 AM [facility] DERMATOPATHOLOGY LABORATORY Microscopic Description Specimen A. [...] carcinoma cannot be ruled out. 11:10 AM [facility] DERMATOPATHOLOGY LABORATORY Disclaimer An external and internal positive and negative controls are appropriate for the histochemical, immunohistochemical and immunofluorescence stain(s) in this case (if any), except where stated explicitly. The performance characteristics of the stain(s) cited in this report were developed and its performance characteristic determined by the Dermatopathology Laboratory at [facility], directed by Dr. Cole Gonzáles. These tests need not be, and therefore are not, approved by the [place] Food and Drug Administration. The tests are used for clinical purposes. Billing Codes Specimen Charges Stain Charges 76868 1 4 11:10 AM [facility] DERMATOPATHOLOGY LABORATORY Embedded Images 11:10 AM [facility] DERMATOPATHOLOGY LABORATORY Pathology/Cytolo gy TISSUE SPECIMEN FROM SKIN / Unknown 02/12/2024 2:00 PM COAT CUTTER 02/13/2024 12:36 PM COAT CUTTER us Savita BAHENA LAB - PATHOLOGY/CYTOLOGY ORDERAB LES Final Result DERMATOPATHOLOGY LABORATORY [facility] - Department of Dermatology [facility] Specialized Medicine [facility], 3rd Floor [address] [phone] documented in this encounter Visit Diagnoses Not on filedocumented in this encounter Care Teams Mold Technician Relationship Specialty Start Date End Date León Varela MD [address] [place] [address] PCP - General 04/29/14 documented as of this encounter
--- OUTSIDE RECORDS SUMMARY | 2024-11-21 10:26 | XMS_ITS | Clinical Summary ---
Author Organization [facility] Address [address] [place] [address] Care Team Providers Care Programming Specialist Name Role Phone Unavailable Primary Care Provider [...] 2) 2016 COVID-19 Vaccine (2023-2 5 season) 2024 Meningococcal B Vaccine Aged Out No l onger eligible based on patient's age to complete this topic Meningococcal Vaccine Aged Out No tahir rohan eligible based on patient's age to complete this topic RSV Immunizations Under 20 Months Aged Out No longer eligible based on patient's age to complete this topic
--- OUTSIDE RECORDS SUMMARY | 2024-11-21 10:26 | XMS_ITS | Encounter Summary ---
Author Organization [facility] Address [address] [facility] [place] [address] Care Team Providers Care Soaking Room Operator Name Role Phone León Varela MD Primary Care Provider [phone] Encounter Details Date Type Department Care Team (Late st Contact Info) Description 08/22/2022 Lab Requisition [facility] - DermPath Lab [address] [facility], [place] [address] Disha Gutierrez MD [address] [facility] 3 [place] [address] Social History Tobacco Use Types Packs/Day Years Used Date Smoking Tobacco: Never Assessed Comments Unknown Sex and Gender Information Value Date Recorded Sex Assigned at Not on file Legal Sex Female 5:46 PM LIFTER Gender Identity Not on file Sexual Orientation Not on file documented as of this encounter Plan of Treatment Not on file documented as of this encounter Procedures Procedure Name Priority Date/Time Associated Diagnosis Comments DERMATOPATHOLOGY Routine 08/22/2022 3:38 PM CDT documented in this encounter Results * DERMATOPATHOLOGY (08/22/2022 3:38 PM CDT) Case Report Dermatopathology Report Case: [id number] Authorizing Provider: Disha Gutierrez MD Collected: 08/22/2022 03:38 PM Ordering Location: [facility] Received: 08/23/2022 12:25 PM [...] characteristic determined by the Dermatopathology Laboratory at [facility], directed by Dr. Cole Gonzáles. These tests need not be, and therefore are not, approved by the [place] Food and Drug Administration. The tests are used for clinical purposes. Billing Codes Specimen Charges Stain Charges 31157 00945 [id number] 07067 1 1 1 1 1 3 3:13 [...] PATHOLOGY/CYTOLOGY ORD ERABLES Final Result DERMATOPATHOLOGY LABORATORY [facility] - Department of Dermatology [facility] Specialized Medicine [address] [place] [address], 3rd Floor [address] [phone] documented in this encounter Visit Diagnoses Not on filedocumented in this encounter Care Teams Soaking Room Operator Relationship Specialty Start Date End Date León Varela MD [address] [place] [address] PCP - General 04/29/14 documented as of this encounter
--- OUTSIDE RECORDS SUMMARY | 2024-11-21 10:26 | XMS_ITS | Clinical Summary ---
Author Organization [facility] Address [address] [facility] [address] [place] [address] Care Team Providers Care Tourist Information Officer Name Role Phone León Varela MD Primary Care Provider Source Comments [facility] [email or web address],non-owned Affiliates and Associated Physician Practices is amultiple site organization consisting of ambulatory clinics and hospital sitesin [place], [place], [place] and [place]. This disclosure is being madepursuant to the Care Everywhere program and may not contain all information available regarding this patient. Last updated 17.[facility] [email or web address] Allergies Active Allergy Reactions Criticality Noted Date [...] on file Legal Sex Female 5:46 PM NITRILES LAB TECHNICIAN Gender Identity Not on file Sexual Orientation [...] this topic Insurance [employer] ANTHEM Care Teams Tourist Information Officer Relationship Specialty Start Date End Date León Varela MD [facility] [place] [address] PCP - General 04/29/14
--- OUTSIDE RECORDS SUMMARY | 2024-11-21 10:26 | XMS_ITS | Clinical Summary ---
Author Organization [facility] Address [address] [place] [address] Care Team Providers Care Broadcast Correspondent Name Role Phone León Varela MD Primary Care Provider [phone] Roger Morales MD Unavailable [phone] Disha Gutierrez MD Unavailable [phone] Allergies Active Allergy Reactions Criticality Noted Date [...] (08/13/2019): Added automatically from request for surgery [id number] Left nephrolithiasis 08/11/2019 Overview (08/11/2019): Added automatically from request for surgery [id number] Encounters Date Type Department Care Team Description 11/07/2024 7:30 AM CDT - 11/07/2024 10:20 AM CDT Surgery [facility] Operating Room [address] [place] [address] Carmelo Brown MD PhD LEFT RADIOCEPHALIC AV FISTULA CREATION 11/07/2024 7:25 AM CDT Anesthesia Event [facility] Operating Room [address] [place] [address] Ja oJhnson III, MD PhD Violette Vallecillo NP 11/07/2024 5:27 AM CDT - 11/07/2024 6:59 PM CDT Hospital Encounter [facility] [address] [place] [address] Carmelo Brown MD PhD ESRD (end stage renal disease) (Primary Dx); Encounter regarding vascular access for dialysis for ESRD (HCC) Discharge Disposition: Discharge to home or self care 11[facility] [address] [facility] Advanced Medicine [facility] [place] [address] [place] [address] Carmelo Brown MD PhD 10/28/2024 [facility] [address] [place] [address] [place] [address] Carmelo Brown MD PhD 09/26/2024 5:18 AM CDT - 09/26/2024 5:20 AM CDT Hospital Encounter [facility] Operating Room [address] [place] [address] Carmelo Brown MD PhD Discharge Disposition: Discharge to home or self care 09/26/2024 [facility] [address] [place] [address] [place] [address] Carmelo Brown MD PhD 09/25/2024 [facility] [address] [place] [address] [place] [address] Carmelo Brown MD PhD 08/22/2024 Telephone [facility] Medicine Surgery [address] [place] [address] [place] [address] Carmelo Brown MD PhD from Last 3 [...] CREATION; Surgeon: Carmelo Brown MD PhD; Location: [facility] OR POD 5; Service: Transplant; Laterality: [...] on file Legal Sex Female 7:24 PM SALES DONOR RECRUITMENT REPRESENTATIVE Gender Identity Not on file Sexual Orientation [...] [employer] Implanted Type Area Lottery Manager Device Identifier Shelf Expiration Date Model / Serial / Lot [facility] [employer] Duraflow Embosafe 15.5fr 24cm Basic 2 Lumen Kit Catheter [id number] - [id number] Implanted:Qty: 1 on 05/10/2024 by Palomo Guzmán MD at [facility] [employer] 05/17/2026 [id number] / / [id number] Explanted Type Area Lottery Manager Device Identifier Shelf Expiration Date Model / Serial / Lot [employer] [id number] Inlay [place] 6fr 24cm Pusher Fluoro Marker Atraumatic Insertion Latex Free - Sn/A - [id number] Implanted:Qty: 1 on 08/11/2019 by Zenaida Romero MD at [facility] Explanted:Qty: 1 on 09/04/2019 at [facility] Stent Left: Ureter [employer] [id number] 07/26/2023 [id number] / N/A / [id number] Procedures Procedure Name Priority Date/Time Associated Diagnosis [...] AM CDT EGFR Routine 05/12/2024 8:57 PM SALES DONOR RECRUITMENT REPRESENTATIVE HEPATITIS C ANTIBODY Routine 05/03/2024 2:36 AM SALES DONOR RECRUITMENT REPRESENTATIVE HEMOGLOBIN A1C Routine 05/03/2024 2:36 AM SALES DONOR RECRUITMENT REPRESENTATIVE from Last 3 Months or Most Recently Relevant to Health Maintenance Results * Potassium (11/07/2024 6:04 PM CDT) Potassium, pl 4.0 3.3 - 4.9 mmol/L Blood 11/07/2024 6:04 PM CDT 11/07/2024 6:14 PM CDT Narrative [facility] - 11/07/2024 6:37 PM CDT Provider to discontinue after two normal results. Carmelo Brown MD PhD LAB BLOOD ORDERABLES Corine l Result Performing Organization Address City/[facility]/ZIP Co de Phone Number [facility] Department [place] [address] * POCT glucose (11/07/2024 4:06 PM CDT) Glucose, POC 149 70 - 199 mg/dL Blood 11/07/2024 4:06 PM CDT 11/07/2024 4:06 PM CDT Carmelo Brown MD PhD LAB POCT ORDERABLES - DEV ICE Final Result [facility] [place] [address] * (ABNORMAL) Potassium, whole blood (11/07/2024 1:35 PM CDT) Potassium, bld 5.8(H) 3.3 - 4.9 mmol/L Blood 11/07/2024 1:35 PM CDT 11/07/2024 1:59 PM CDT Narrative [facility] - 11/07/2024 2:10 PM CDT Draw with HD Antoine Segura RFP WRITER LAB BLOOD ORDERABLES Fi nal Result Performing Organization Address [facility] Co de Phone Number [facility] Department [place] [address] * Hepatitis B Surface Antigen Blood (11/07/2024 1:35 PM CDT) Pathologist [facility] HepBsAg Nonreactive Nonreactive Blood 11/07/2024 1:35 PM CDT 11/07/2024 2:03 PM CDT Narrative [facility] - 11/07/2024 2:39 PM CDT Dialysis will draw Antoine Segura RFP WRITER LAB MICROBIOLOGY - GENE RAL ORDERABLES Final Result Performing Organization Address [facility] de Phone Number [facility] [place] [address] * (ABNORMAL) Potassium, whole blood (11/07/2024 11:40 AM CDT) Pathologist [facility] Potassium, bld 6.5(C) 3.3 - 4.9 mmol/L Comment:Repeated and verifie d. Blood 11/07/2024 11:4 0 AM CDT 11/07/2024 11:47 AM CDT Carmelo Brown MD PhD LAB BLOOD ORDERABLES Corine l Result Performing Organization Address [facility] Co de Phone Number [facility] [place] [address] * Critical Result Callback Chemistry (11/07/2024 11:40 AM CDT) Date Notified [id number] Time Notified 1223 [facility] TestName Potassium Plasma [facility] Called/Read Back [employer] [facility] Credentials RN [facility] Called By virgie [facility] Blood 11/07/2024 11:4 0 AM CDT 11/07/2024 11:57 AM CDT us Roxi Segura MD LAB BLOOD ORDERABLES Final Result Performing Organization Address [facility] Co de Phone Number [facility] [place] [address] * Critical Result Callback Chemistry (11/07/2024 11:40 AM CDT) Date Notified 20241107 Time Notified 1202 [facility] TestName Potassium WB [facility] Called/Read Back Adebayo [facility] Credentials RN [facility] Called By virgie [facility] Blood 11/07/2024 11:4 0 AM CDT 11/07/2024 11:47 AM CDT us Carmelo Brown MD PhD LAB BLOOD ORDERABLES Corine l Result Performing Organization Address [facility] Co de Phone Number [facility] [place] [address] * (ABNORMAL) Potassium (11/07/2024 11:40 AM CDT) Potassium, pl 7.0(C) 3.3 - 4.9 mmol/L Blood 11/07/2024 11:4 0 AM CDT 11/07/2024 11:47 AM CDT Narrative [facility] - 11/07/2024 12:18 PM CDT Provider to discontinue after two normal results. us Roxi Segura MD LAB BLOOD ORDERABLES Final Result Performing Organization Address City/[facility]/ZIP Co de Phone Number [facility] [place] [address] * (ABNORMAL) POC Blood Gas and Chemistries, [...] DEV ICE Final Result Performing Organization Address City/[facility] Co de Phone Number [facility] Department [place] [address] * POCT glucose (11/07/2024 10:53 AM CDT) Pathologist [facility] Glucose, POC 163 70 - 199 mg/dL Blood 11/07/2024 10:5 3 AM CDT 11/07/2024 10:53 AM CDT Carmelo Brown MD PhD LAB POCT ORDERABLES - DEV ICE Final Result Performing Organization Address City/[facility] Co de Phone Number [facility] [place] [address] * POCT glucose (11/07/2024 9:04 AM CDT) Glucose, POC 160 70 - 199 mg/dL Blood 11/07/2024 9:04 AM CDT 11/07/2024 9:04 AM CDT us Carmelo Brown MD PhD LAB POCT ORDERABLES - DEV ICE Final Result Performing Organization Address [facility] de Phone Number [facility] [place] [address] * Airway (11/07/2024 8:03 AM CDT) Narrative [...] Ventricular Rate EKG/Min 76 BPM [facility] Atrial Rate 76 BPM [facility] ID-Interval (MSEC) 176 ms [facility] QRS-Interval (MSEC) 72 ms [facility] QT-Interval (MSEC) 388 ms [facility] QTc 436 ms [facility] P Commerce 58 degrees [facility] R Commerce 74 degrees [facility] T Commerce 31 degrees [facility] Diagnosis Normal sinus rhythm Low voltage QRS Borderline ECG No previous ECGs available Confirmed by Filipe Moss MD ([id number]) on 11/07/2024 9:44:04 AM [facility] 11/07/2024 6:16 AM CDT 11/07/2024 9:44 AM CDT Figueroa Noonan MD ECG ORDERABLES Final Result Performing Organization Address City/[facility]/ZIP Co de Phone Number [facility] [place] * (ABNORMAL) POC Blood Gas and Chemistries, Arterial - (11/07/2024 5:57 AM CDT) Pathologist [facility] Na, POC 127(L) 135 - 145 [...] DEV ICE Final Result Performing Organization Address City/[facility]/ZIP Co de Phone Number [facility] Department [place] [address] * (ABNORMAL) eGFR (05/12/2024 8:57 PM SALES DONOR RECRUITMENT REPRESENTATIVE) eGFR 12(L) >=60 mL/min/1. 73 m2 Comment: [...] last reviewed 2021. Blood 05/12/2024 8:57 PM SALES DONOR RECRUITMENT REPRESENTATIVE 05/12/2024 9:32 PM SALES DONOR RECRUITMENT REPRESENTATIVE us Tu Lozano MD LAB BLOOD ORDERABLES Final Result [facility] [place] [address] * Hepatitis C antibody Blood (05/03/2024 2:36 AM SALES DONOR RECRUITMENT REPRESENTATIVE) Pathologist [facility] Hep C Ab Nonreactive Nonreactive Comment:Antibodies to HCV no t detected. Does NOT exclude the possibility of recent exposure to HCV. Current interpretive data was last revised on 21 Blood 05/03/2024 2:36 AM SALES DONOR RECRUITMENT REPRESENTATIVE 05/03/2024 3:12 AM SALES DONOR RECRUITMENT REPRESENTATIVE us Troy Ramirez MD LAB MICROBIOLOGY - GENERAL OR DERABLES Final Result [facility] [place] [address] * (ABNORMAL) Hemoglobin A1c (05/03/2024 2:36 AM SALES DONOR RECRUITMENT REPRESENTATIVE) Hgb A1C 6.2(H) 4.0 - 5.6 % [...] a fasting glucose. Blood 05/03/2024 2:36 AM SALES DONOR RECRUITMENT REPRESENTATIVE 05/03/2024 2:59 AM SALES DONOR RECRUITMENT REPRESENTATIVE us Troy Ramirez MD LAB BLOOD ORDERABLES Final Re sult [facility] One [facility] Department [place] [address] from Last 3 Months or Most Recently Relevant to Health Maintenance Additional Health Concerns Active Problems Noted Date Diagnosed Date Autogenerated Problem 09/30/2024 Insurance MEDICARE MEDICARE TRANSPLANT [facility] [employer] [facility] Advance Directives For more information, please contact: [phone] * Full Code (Latest Code Status on File) Date Activated Date Inactivated Comments 05/03/2024 2:16 AM 05/14/2024 1:09 AM * Full Code Date Activated Date Inactivated Comments 08/12/2019 3:28 AM 08/12/2019 7:14 PM Healthcare Agents on File Name Relationship Healthcare Agent Relationshi p Communication [place] Keerthijean Spouse Health Care Agent Care Teams Broadcast Correspondent Relationship Specialty Start Date End Date León Varela MD [address] [place] [address] PCP - General Family Medicine 05/02/24 Roger Morales MD [address] [facility] [address] [place] [address] Referring Physician Nephrology 05/08/24 Disha Gutierrez MD [address] [place] [address] Referring Physician Dermatology 06/18/24
--- OUTSIDE RECORDS SUMMARY | 2024-11-21 10:26 | XMS_ITS | Clinical Summary ---
Author Organization [facility] Address [address] [place] [address] Phone Care Team Providers Care Newspaper Vendor Name Role Phone Yaw Rodriguez MD Primary Care Provider [phone] Allergies Active Allergy Reactions Criticality Noted Date [...] (06/25/2020): Added automatically from request for surgery [id number] Added automatically from request for surgery [id number] Family History Medical History Relation Comments Kidney [...] Vaccine (#1) 2024 Insurance [employer] Care Teams Newspaper Vendor Relationship Specialty Start Date End Date Yaw Rodriguez MD PCP - General Family Medicine 04/22/20
--- OUTSIDE RECORDS SUMMARY | 2024-11-21 10:26 | XMS_ITS | Encounter Summary ---
Author Organization [facility] Address [address] [place] [address] Care Team Providers Care Manager Welding Name Role Phone León Varela MD Primary Care Provider [phone] Encounter Details Date Type Department Care Team (Late st Contact Info) Description 05/17/2019 Lab Requisition [facility] DermPath Lab [address] [facility], [place] [address] Disha Gutierrez MD [address] [facility] 3 [place] [address] Social History Tobacco Use Types Packs/Day Years Used Date Smoking Tobacco: Never Assessed Comments Unknown Sex and Gender Information Value Date Recorded Sex Assigned at Not on file Legal Sex Female 5:46 PM TIRE CENTER MANAGER Gender Identity Not on file Sexual Orientation Not on file documented as of this encounter Plan of Treatment Not on file documented as of this encounter Procedures Procedure Name Priority Date/Time Associated Diagnosis Comments DERMATOPATHOLOGY Routine 05/16/2019 12:0 0 AM TIRE CENTER MANAGER documented in this encounter Results * DERMATOPATHOLOGY (05/16/2019 12:00 AM TIRE CENTER MANAGER) Case Report Dermatopathology Report Case: [id number] Authorizing Provider: Disha Gutierrez MD Collected: 05/16/2019 12:00 AM Ordering Location: [facility] Derm[facility] Lab Received: 05/17/2019 10:05 AM Pathologist: Emely Burt MD Specimens: A) - Skin, left hand B) - Skin, left 3rd finger 0 6:09 PM TIRE CENTER MANAGER DERMATOPATHOLOGY LABORATORY Final Diagnosis Specimen A. SKIN, left hand: HYPERPLASTIC (HYPERTROPHIC) ACTINIC KERATOSIS (L57.0) Specimen B. SKIN, left 3rd finger: SQUAMOUS CELL CARCINOMA IN SITU, PRESENT AT THE BASE OF THE SPECIMEN (D04.62) (see microscopic description and comment) 0 6:09 PM [facility] DERMATOPATHOLOGY LABORATORY at [address] TIRE CENTER MANAGER Clinical History A-B: R/O SCC, painful pink papules. 0 6:09 PM [facility] DERMATOPATHOLOGY LABORATORY Gross Description Specimen A: Received is one formalin filled container labeled with the patient's name and designated left hand. The specimen consists of a shave measuring [id number]. Jar 0. Specimen B: Received is one formalin filled container labeled with the patient's name and designated left 3rd finger. The specimen consists of a shave measuring 76y3s3oj. Jar 0. 0 6:09 PM [facility] DERMATOPATHOLOGY LABORATORY Microscopic Description Specimen A. [...] cannot be ruled out. 0 6:09 PM [facility] DERMATOPATHOLOGY LABORATORY Disclaimer An external and internal positive and negative controls are appropriate for the histochemical, immunohistochemical and immunofluorescence stain(s) in this case (if any), except where stated explicitly. The performance characteristics of the stain(s) cited in this report were developed and its performance characteristic determined by the Dermatopathology Laboratory at [facility], directed by Dr. Cole Gonzáles. These tests need not be, and therefore are not, approved by the [place] Food and Drug Administration. The tests are used for clinical purposes. Billing Codes Specimen Charges Stain Charges 65193 02526 1 1 0 6:09 PM [facility] DERMATOPATHOLOGY LABORATORY Embedded Images 0 6:09 PM [facility] DERMATOPATHOLOGY LABORATORY Pathology/Cytology TISSUE SPECIMEN FROM SKIN / Unknown 05/16/2019 05/17/2019 10:05 AM TIRE CENTER MANAGER Miscellaneous samples (specimen) TISSUE SPECIMEN FROM SKIN / Unknown 05/16/2019 05/17/2019 10:05 AM TIRE CENTER MANAGER Disha Gutierrez MD LAB - PATHOLOGY/CYTOLOGY ORD ERABLES Final Result DERMATOPATHOLOGY LABORATORY [facility] - Department of Dermatology [address] [place] [address], 5th Floor Lab [address] [phone] documented in this encounter Visit Diagnoses Not on filedocumented in this encounter Care Teams Manager Welding Relationship Specialty Start Date End Date León Varela MD [facility] [place] [address] PCP - General 04/29/14 documented as of this encounter
--- OUTSIDE RECORDS SUMMARY | 2024-11-21 10:26 | XMS_ITS ---
Author Organization [facility] Address [address] [place] [address] Care Team Providers Care Hand Mixer Name Role Phone León Varela MD Primary Care Provider [phone] Roger Morales MD Unavailable [phone] Disha Gutierrez MD Unavailable [phone] Dialysis Plan of Treatment Dialysis Prescription As-Of [...] case moved to follow donor/recipient case - [facility] 08/22@1122- Per Raekl via phone call reschedule to 09/26- [facility] ECG 12-LEAD Routine 11/07/2024 6:16 AM CDT POC BLOOD GAS AND CHEMISTRIES, ARTERIAL Routine 11/07/2024 5:57 AM CDT EGFR Routine 05/12/2024 8:57 PM DOWNSTREAM BIOMANUFACTURING TECHNICIAN HEPATITIS C ANTIBODY Routine 05/03/2024 2:36 AM DOWNSTREAM BIOMANUFACTURING TECHNICIAN HEMOGLOBIN A1C Routine 05/03/2024 2:36 AM DOWNSTREAM BIOMANUFACTURING TECHNICIAN from Last 3 Months or Most Recently [...] (08/13/2019): Added automatically from request for surgery [id number] Left nephrolithiasis 08/11/2019 Overview (08/11/2019): Added automatically from request for surgery [id number] Social History Tobacco Use Types Packs/Day Years [...] on file Legal Sex Female 7:24 PM DOWNSTREAM BIOMANUFACTURING TECHNICIAN Gender Identity Not on file Sexual [...] PM CDT 11/07/2024 6:14 PM CDT Narrative [facility] - 11/07/2024 6:37 PM CDT Provider to discontinue after two normal results. us Carmelo Brown MD PhD LAB BLOOD ORDERABLES Corine l Result [facility] [place] [address] * POCT glucose (11/07/2024 4:06 PM CDT) Glucose, POC 149 70 - 199 mg/dL Blood 11/07/2024 4:06 PM CDT 11/07/2024 4:06 PM CDT Carmelo Brown MD PhD LAB POCT ORDERABLES - DEV ICE Final Result Performing Organization Address [facility] Co de Phone Number [facility] [place] [address] * (ABNORMAL) Potassium, whole blood (11/07/2024 1:35 PM CDT) Pathologist [facility] Potassium, bld 5.8(H) 3.3 - 4.9 mmol/L Blood 11/07/2024 1:35 PM CDT 11/07/2024 1:59 PM CDT Narrative [facility] - 11/07/2024 2:10 PM CDT Draw with HD us Antoine Segura STORE STANDARDS ASSOCIATE LAB BLOOD ORDERABLES Fi nal Result Performing Organization Address [facility]/ZIP Co de Phone Number [facility] [place] [address] * Hepatitis B Surface Antigen Blood (11/07/2024 1:35 PM CDT) Pathologist [facility] HepBsAg Nonreactive Nonreactive Blood 11/07/2024 1:35 PM CDT 11/07/2024 2:03 PM CDT Narrative [facility] - 11/07/2024 2:39 PM CDT Dialysis will draw us Antoine Segura STORE STANDARDS ASSOCIATE LAB MICROBIOLOGY - GENE RAL ORDERABLES Final Result Performing Organization Address City/[facility]/ZIP Co de Phone Number [facility] [place] [address] * (ABNORMAL) Potassium, whole blood (11/07/2024 11:40 AM CDT) Pathologist [facility] Potassium, bld 6.5(C) 3.3 - 4.9 mmol/L Comment:Repeated and verifie d. Blood 11/07/2024 11:4 0 AM CDT 11/07/2024 11:47 AM CDT us Carmelo Brown MD PhD LAB BLOOD ORDERABLES Corine l Result Performing Organization Address [facility] Co de Phone Number [facility] [place] [address] * Critical Result Callback Chemistry (11/07/2024 11:40 AM CDT) Pathologist [facility] Date Notified [id number] Time Notified 1223 [facility] TestName Potassium Plasma [facility] Called/Read Back Genesis [facility] Credentials RN MINERVA ANDREWS Called By virgie [facility] Blood 11/07/2024 11:4 0 AM CDT 11/07/2024 11:57 AM CDT us Roxi Segura MD LAB BLOOD ORDERABLES Final Result Performing Organization Address City/[facility]/ZIP Co de Phone Number [facility] [place] [address] * Critical Result Callback Chemistry (11/07/2024 11:40 AM CDT) [facility] Date Notified [id number] Time Notified 1202 [facility] TestName Potassium WB [facility] Called/Read Back Adebayo Brand [facility] Credentials RN [facility] Called By virgie [facility] Blood 11/07/2024 11:4 0 AM CDT 11/07/2024 11:47 AM CDT us Carmelo Brown MD PhD LAB BLOOD ORDERABLES Corine l Result [facility] [place] [address] * (ABNORMAL) Potassium (11/07/2024 11:40 AM CDT) [facility] Potassium, pl 7.0(C) 3.3 - 4.9 mmol/L Blood 11/07/2024 11:4 0 AM CDT 11/07/2024 11:47 AM CDT Narrative [facility] - 11/07/2024 12:18 PM CDT Provider to discontinue after two normal results. us Roxi Segura MD LAB BLOOD ORDERABLES Final Result [facility] [place] [address] * (ABNORMAL) POC Blood Gas and Chemistries, Venous - (11/07/2024 11:04 AM CDT) [facility] pH, Love POC 7.37 7.32 - 7.43 pCO2, love POC 38(L) 40 - 50 mmHg [facility] pO2, love POC 61 mmHg [facility] Na, POC 126(L) 135 - 145 mmol/L [facility] K POC 6.6(C) 3.3 - 4.9 mmol/L [facility] Comment: Interpretive Data Not all point of care methods assess for hemolysis. Confirm with instrument and retest K+ if not consistent with clinical signs and symptoms. Current Interpretive Data was last revised on 2023. Cl, POC 91(L) 97 - 110 mmol/L [facility] Ionized Ca, POC 4.92 4.50 - 5.10 mg/dL [facility] Glucose, POC 147 70 - 199 mg/dL [facility] Lactate POC 2.3(H) 0.7 - 2.0 mmol/L [facility] O2 Sat, Love POC ([place]) 90 % [facility] HCO3, Love POC 22 20 - 30 mmol/L [facility] Hct, POC 34.0(L) 36.3 - 45.3 % [facility] Total Hb, POC 11.3(L) 11.9 - 15.5 g/dL [facility] Blood 11/07/2024 11:0 4 AM CDT 11/07/2024 11:04 AM CDT Carmelo Brown MD PhD LAB POCT ORDERABLES - DEV ICE Final Result [facility] [place] [address] * POCT glucose (11/07/2024 10:53 AM CDT) Glucose, POC 163 70 - 199 mg/dL Blood 11/07/2024 10:5 3 AM CDT 11/07/2024 10:53 AM CDT Carmelo Brown MD PhD LAB POCT ORDERABLES - DEV ICE Final Result [facility] [place] [address] * POCT glucose (11/07/2024 9:04 AM CDT) Glucose, POC 160 70 - 199 mg/dL Blood 11/07/2024 9:04 AM CDT 11/07/2024 9:04 AM CDT us Carmelo Brown MD PhD LAB POCT ORDERABLES - DEV ICE Final Result [facility] [place] [address] * Airway (11/07/2024 8:03 AM CDT) Narrative [...] BPM [facility] Atrial Rate 76 BPM [facility] GA-Interval (MSEC) 176 ms [facility] QRS-Interval (MSEC) 72 ms [facility] QT-Interval (MSEC) 388 ms [facility] QTc 436 ms [facility] P [place] 58 degrees [facility] R [place] 74 degrees [facility] T [place] 31 degrees [facility] Diagnosis Normal sinus rhythm Low voltage QRS Borderline ECG No previous ECGs available Confirmed by Filipe Moss MD ([id number]) on 11/07/2024 9:44:04 AM [facility] 11/07/2024 6:16 AM CDT 11/07/2024 9:44 AM CDT Figueroa Noonan MD ECG ORDERABLES Final Result Performing Organization Address [facility]/ZIP Co de Phone Number [facility] * (ABNORMAL) POC Blood Gas and Chemistries, Arterial - (11/07/2024 5:57 AM CDT) Na, POC 127(L) 135 - 145 mmol/L K POC 5.5(H) 3.3 - 4.9 mmol/L [facility] Comment: Interpretive Data Not all point of care methods assess for hemolysis. Confirm with instrument and retest K+ if not consistent with clinical signs and symptoms. Current Interpretive Data was last revised on 2023. Glucose, POC 156 70 - 199 mg/dL [facility] Hct, POC 37.0 36.3 - 45.3 % [facility] Total Hb, POC 12.3 11.9 - 15.5 g/dL [facility] Blood 11/07/2024 5:57 AM CDT 11/07/2024 5:57 AM CDT Carmelo Brown MD PhD LAB POCT ORDERABLES - DEV ICE Final Result [facility] [place] [address] * (ABNORMAL) eGFR (05/12/2024 8:57 PM DOWNSTREAM BIOMANUFACTURING TECHNICIAN) eGFR 12(L) >=60 mL/min/1. 73 m2 Comment: [...] last reviewed 2021. Blood 05/12/2024 8:57 PM DOWNSTREAM BIOMANUFACTURING TECHNICIAN 05/12/2024 9:32 PM DOWNSTREAM BIOMANUFACTURING TECHNICIAN us Tu Lozano MD LAB BLOOD ORDERABLES Final Result Performing Organization Address City/[facility] Co de Phone Number [facility] [place] [address] * Hepatitis C antibody Blood (05/03/2024 2:36 AM DOWNSTREAM BIOMANUFACTURING TECHNICIAN) [facility] Hep C Ab Nonreactive Nonreactive Comment:Antibodies to HCV no t detected. Does NOT exclude the possibility of recent exposure to HCV. Current interpretive data was last revised on 21 Blood 05/03/2024 2:36 AM DOWNSTREAM BIOMANUFACTURING TECHNICIAN 05/03/2024 3:12 AM DOWNSTREAM BIOMANUFACTURING TECHNICIAN us Troy Ramirez MD LAB MICROBIOLOGY - GENERAL OR DERABLES Final Result Performing Organization Address [facility] Co de Phone Number [facility] [place] [address] * (ABNORMAL) Hemoglobin A1c (05/03/2024 2:36 AM DOWNSTREAM BIOMANUFACTURING TECHNICIAN) Pathologist [facility] Hgb A1C 6.2(H) 4.0 - 5.6 % Estimated Average Glucose 131 mg/dL [facility] Comment: The ADA recommends reporting an estimated Average Glucose (eAG) with all Hemoglobin A1c results using the equation derived from a study of 507 normal and diabetic adults. Minority populations were underrepresented and children were not included. (Diabetes Care 2020; 43(S1): S66-S76). The eAG is not equivalent to a fasting glucose. Blood 05/03/2024 2:36 AM DOWNSTREAM BIOMANUFACTURING TECHNICIAN 05/03/2024 2:59 AM DOWNSTREAM BIOMANUFACTURING TECHNICIAN us Troy Ramirez MD LAB BLOOD ORDERABLES Final Re sult [facility] [place] [address] from Last 3 Months or Most Recently Relevant to Health Maintenance
== END 2024-11-21 09:51 | disposition home or self-care (01) ==
PROVIDERS: PCP Family Medicine; Visit Provider Internal Medicine Nephrology
DX: R05.9 Cough, unspecified (principal)
CPT/HCPCS: 71046

== ENCOUNTER 2025-03-03 08:24 | Emergency (ER) | payer MEDICARE, BC, SELFPAY ==
--- NOTE | ~2025-03-03 | CT_ITS ---
EXAMINATION: CT brain wo judith, 03/03/2025 8:58 [facility] HISTORY: seizure? COMPARISON: No comparisons available. Technique: Axial images obtained of the brain without contrast. One or more of the following dose reduction techniques were used: automated exposure control, adjustment of the mA and/or kV according to patient size, use of iterative reconstruction technique. Findings: No acute infarct or parenchymal hemorrhage. No abnormal mass or mass effect. No midline shift. No extra-axial fluid collections. No hydrocephalus. Mastoid air cells unremarkable. Sinuses and orbits unremarkable. No acute fracture. No significant facial or scalp soft tissue swelling evident. No radiopaque foreign body is seen. Impression: 1.No acute intracranial abnormality. Reviewed, dictated and finalized at location P. K PULLER Impression: 1.No acute intracranial abnormality.
[2025-03-03 08:25] VITALS: BP 76/53; PULSE 88; RESP 16; TEMP 36.1; O2SAT 100
--- NOTE | 2025-03-03 08:37 | ECG_ITS ---
Test Date: 2025-03-03 09:30:18 Measurements Intervals [place] Rate: 86 P: 68 ID: [id number] QRS: 79 QRSD: 72 T: 65 QT: 384 QTc: 461 Interpretive Statements SINUS RHYTHM POSSIBLE LEFT ATRIAL ENLARGEMENT LOW QRS VOLTAGE IN PRECORDIAL LEADS CONSIDER ANTERIOR INFARCT, AGE INDETERMINATE BASELINE ARTIFACT- AVR, AVL, V3 ABNORMAL ECG No previous ECG available for comparison Electronically Signed On 03-03-2025 10:07:42 PHYSICIAN GYNECOLOGIST by Wenceslao West D.O.
--- NOTE | 2025-03-03 08:38 | ED.AMS ---
HPI - Altered Mental Status General Chief Complaint: Altered Mental Status Stated Complaint: poss seizure Time Seen by Provider: 03/03/25 08:33 History of Present Illness HPI narrative: Pt presents with 3 episodes of staring off blankly into space during dialysis treatment per staff. Pt had no post ictal period between events. Pt has no history of prior episodes of this during dialysis. Pt normal BP is in the 89's systolic. Pt has no complaints now. Pt completed 95% of her treatment. Related Data Home Medications ?Medication ?Instructions ?Recorded ?Confirmed ?Last Taken ?Type atorvastatin 40 mg tablet 40 mg PO DAILY 06/21/23 02/27/25 Unknown History montelukast 10 mg tablet 10 mg PO DAILY 06/21/23 02/27/25 Unknown History (Singulair) Allergies Allergy/AdvReac Type Severity Reaction Status Date / Time codeine Allergy Unknown Other Verified 04/17/24 14:55 fluticasone Allergy Unknown Rash Verified 04/17/24 14:55 salmeterol Allergy Unknown Rash Verified 04/17/24 14:55 Review of Systems Review of Systems: All systems reviewed & are unremarkable except as noted in HPI and below PMFSH Family History Family History Other Diabetes mellitus Family history of Alzheimer's disease Hypertension Social History Social History Smoking status: Former smoker Alcohol intake: never Substance use: never Lack of Transportation: No Lack of Food: Never True Current Housing: I Have Housing Concerned About Future Housing: No Difficulty Paying Gas/Electric Bills: No Difficulty Paying for Meds: No Currently Unemployed: No Education: High School Diploma/GED Living arrangements: with family Gender identity (if verbalized by the patient): Female Exam Const: General: healthy appearing and no acute distress Nutritional Appearance: well nourished Orientation/consciousness: patient oriented x3 Limitations: no limitations HENMT: Head: normal to inspection Eyes: EOM: EOMs intact bilaterally Neck: Neck: normal visual inspection and no meningeal signs Chest: Chest palpation & inspection: normal inspection of the chest Resp: Effort & Inspection: normal respiratory effort Auscultation: clear to auscultation bilaterally Cardio: Rate: regular rate Rhythm: regular rhythm GI: GI Palp: Yes Soft to palpation and No Tenderness to palpation present (GI) Auscultation: normal bowel sounds Skin: General skin exam: normal color Rashes: no rashes Wounds: no wounds Neuro: General: patient oriented x3, moves all extremities, no meningeal signs, no focal motor deficits and CN's II-XI intact bilaterally Cranial nerves: Yes Nystagmus not present Speech: normal speech Extrem: General: normal to inspection and no clubbing, cyanosis or edema Psych: Mental Status: mental status grossly normal Affect: normal affect Attitude: cooperative Course Vital Signs Vital signs: Vital Signs Temperature 97.0 F L 03/03/25 08:25 Pulse Rate 88 03/03/25 08:25 Respiratory Rate 16 03/03/25 08:25 Blood Pressure 76/53 L 03/03/25 08:25 Pulse Oximetry 100 03/03/25 08:25 Oxygen Delivery Room Air 03/03/25 08:25 Temperature 97.0 F L 03/03/25 08:25 Pulse Rate 86 03/03/25 10:00 Respiratory Rate 14 03/03/25 10:00 Blood Pressure 74/51 L 03/03/25 10:00 Pulse Oximetry 99 03/03/25 10:00 Oxygen Delivery Room Air 03/03/25 08:40 [facility] Narrative Medical decision making narrative: will get labs and ekg and ct brain and recheck. Pt feels fine no further episodes. pt ok for discharge Differential Diagnosis Differential Diagnosis: new seizure, syncope, near syncope, electrolyte imbalnace anemai Lab Data [facility] Lab Attestation statement: I personally reviewed the patient's lab results. 03/03/25 08:47 03/03/25 08:47 Labs: Lab Results 03/03/25 Range/Units 08:47 WBC 14.4 H (4.5-10.0) K/mm3 RBC 4.02 L (4.2-5.4) M/mm3 Hgb 12.0 (12.0-15.0) g/dL Hct 39.4 (37.0-47.0) % MCV 98.0 (80-100) fl MCH 29.9 (26-34) pg MCHC 30.5 L (32-36) g/dl RDW 18.9 H (11.5-14.5) % Plt Count 236 (150-375) k/mm3 MPV 9.0 (7.4-10.4) fl Immature Gran % (Auto) 0.8 H (0-0.5) % Neut % (Auto) 71.4 (45.5-73.1) % Lymph % (Auto) 12.5 L (18.3-44.2) % [place] % (Auto) 6.5 (2.6-8.5) % Eos % (Auto) 7.9 H (0-4.4) % Baso % (Auto) 0.9 (0.2-1.2) % Lymph # (Auto) 1.80 (0.9-3.2) K/mm3 [place] # (Auto) 0.9 H (0.1-0.6) K/mm3 Eos # (Auto) 1.1 H (0-0.3) K/mm3 Baso # (Auto) 0.1 (0.0-0.1) K/mm3 Abs Immat Gran (auto) 0.11 H (0.00-0.031) K/mm3 Absolute Neuts (auto) 10.3 H (1.3-6.7) K/mm3 Absolute Nucleated RBC 0.000 (0.0-0.012) K/mm3 Nucleated RBC % 0.0 (0.0-0.2) % Sodium 132 L (137-145) mmol/L Potassium 4.8 (3.4-5.0) mmol/L Chloride 90 L (98-107) mmol/L Carbon Dioxide 30 (22-30) mmol/L Anion Gap 12 (4-12) mmol/L BUN 11 (7-17) mg/dL Creatinine 4.23 H (0.7-1.0) mg/dL Estim Creat Clear Calc 10 ml/min Estimated GFR 11 L (59 - ) Glucose 134 H (65-110) mg/dL Calcium 9.4 (8.4-10.2) mg/dL Magnesium 2.8 H (1.6-2.3) mg/dL Total Bilirubin 0.7 (0.2-1.3) mg/dL AST 31 (14-36) U/L ALT 40 H (6-35) U/L Alkaline Phosphatase 177 H (38-126) U/L Total Protein 7.8 (6.3-8.2) g/dL Albumin 4.6 (3.5-5.1) g/dL Imaging Data Attestation: I personally reviewed and interpreted this imaging study as follows: My impression: nad Radiologist's impression: ITS Impressions Head CT 03/03/25 09:04 Impression: 1.No acute intracranial abnormality. Discharge Plan Discharge Clinical Impression: Near syncope Patient Disposition: Home Condition: Improved Instructions: Antibiotic Form, Near Syncope (ED) Patient Language: Ghanaian Prescriptions: No Action montelukast [Singulair] 10 mg tablet 10 mg PO DAILY atorvastatin 40 mg tablet 40 mg PO DAILY amiloride 5 mg tablet 5 mg PO DAILY Qty: 30 7RF hydroxyzine HCl 10 mg tablet 10 mg PO QID PRN (Reason: itching) Qty: 80 2RF Rx Instructions: 1. pt wants brand name Atarax. 2. pt should not take at the same time as potassium pills sevelamer carbonate 800 mg tablet 1,600 mg PO TIDWMEAL Qty: 180 11RF Rx Instructions: must administer with a meal/food Follow-up/Referrals: Nichole,León Pickering MD [Primary Care Provider, Unknown]
[2025-03-03 08:52] LABS: Hematocrit 39.4 % (37.0-47.0); Hemoglobin 12.0 g/dL (12.0-15.0); Immature Granulocyte Percent A 0.8 % (0-0.5); Lymphocytes Absolute Auto 1.80 K/mm3 (0.9-3.2); Mean Corpuscular HGB Conc 30.5 g/dl (32-36); Mean Corpuscular Hemoglobin 29.9 pg (26-34); Mean Corpuscular Volume 98.0 fl (80-100); Nucleated Red Blood Cells Absolute Auto 0.000 K/mm3 (0.0-0.012); Nucleated Red Blood Cells Perc 0.0 % (0.0-0.2); Platelet Count Result 236 k/mm3 (150-375); Red Blood Count 4.02 M/mm3 (4.2-5.4); White Blood Count 14.4 K/mm3 (4.5-10.0)
[2025-03-03 09:14] LABS: Alanine Aminotransferase 40 U/L (6-35); Albumin Level 4.6 g/dL (3.5-5.1); Alkaline Phosphatase 177 U/L (38-126); Anion Gap 12 mmol/L (4-12); Aspartate Amino Transferase 31 U/L (14-36); Bilirubin,Total 0.7 mg/dL (0.2-1.3); Blood Urea Nitrogen 11 mg/dL (7-17); Calcium 9.4 mg/dL (8.4-10.2); Carbon Dioxide 30 mmol/L (22-30); Chloride 90 mmol/L (98-107); Estimated CRCL calculation 10 ml/min; Estimated Glomerular Filt Rate 11; Glucose 134 mg/dL (65-110); Magnesium 2.8 mg/dL (1.6-2.3); Potassium 4.8 mmol/L (3.4-5.0); Sodium 132 mmol/L (137-145); Total Protein 7.8 g/dL (6.3-8.2)
[2025-03-03 09:20] VITALS: BP 72/50; PULSE 96; RESP 15; O2SAT 100
[2025-03-03 09:30] VITALS: BP 74/48; PULSE 86; RESP 12; O2SAT 100
[2025-03-03 10:00] VITALS: BP 74/51; PULSE 86; RESP 14; O2SAT 99
== END 2025-03-03 10:25 | disposition home or self-care (01) ==
PROVIDERS: Emergency Provider Emergency Medicine; PCP Family Medicine
DX: R55 Syncope and collapse (principal); R94.31 Abnormal electrocardiogram [ECG] [EKG]; N18.6 End stage renal disease; Z99.2 Dependence on renal dialysis
CPT/HCPCS: 36415; 70450; 80053; 83735; 85025; 93005; 99284